=== PATIENT | male | born 1940 | race Caucasian/White ===

== ENCOUNTER → 2016-08-13 | Outpatient (CLI) | payer OTHER, MEDICARE ==
[~2016-08-13] MED LIST: ALD2525 PO; ASPI81TA28 PO; CLOP1TAB15 PO
[2016-08-13 10:22] LABS: ALT/SGPT 18 U/L (12-78); AST/SGOT 13 U/L (15-37); BLOOD UREA NITROGEN 23 mg/dl (7-18); BUN/CREATININE RATIO 16.5 (10-20); CALCIUM 8.8 mg/dl (8.5-10.1); CARBON DIOXIDE 27 mmol/L (21-32); CHLORIDE 102 mmol/L (98-107); GLUCOSE 112 mg/dl (70-99); POTASSIUM 4.2 mmol/L (3.5-5.1); SODIUM 138 mmol/L (136-145)
[2016-08-13 10:25] LABS: ALB/GLOB RATIO 0.9 (0.9-2); ALKALINE PHOSPHATASE 60 U/L (45-117)
== END | disposition home or self-care (01) ==
LOC: C.LAB1850 09:13
PROVIDERS: ATTEND Internal Medicine Cardiovascular Disease
DX: E78.5 Hyperlipidemia, unspecified (principal)

== ENCOUNTER → 2017-01-04 | Outpatient (CLI) | payer OTHER, MEDICARE ==
[~2017-01-04] MED LIST changes: +CHOL1000 PO; +LEVO-18 PO; +PRED20TA2 PO; +SPIR50TA PO; +VNTHFA/IN INH
[2017-01-04 12:49] LABS: BASO % 0.7 %; BASO ABS # 0.06 K/uL (0-0.2); COMPLETE YES; EOS % 3.3 %; HEMATOCRIT 49.1 % (42-52); IG% 0.1 %; LYMPH % 28.7 %; LYMPH ABS # 2.62 K/uL (1.2-3.4); MEAN CELL VOLUME 94.2 fL (80-100); MEAN CORPUSCULAR HEMOGLOBIN 32.2 pg (25-34); MEAN CORPUSCULAR HGB CONC 34.2 g/dl (32-36); MEAN PLATELET VOLUME 10.4 fL (7.4-10.4); MONO % 9.3 %; NEUT % 57.9 %; PLATELET COUNT 235 K/uL (130-400); RED BLOOD COUNT 5.21 M/uL (4.7-6.1); WHITE BLOOD COUNT 9.14 K/uL (4.8-10.8)
[2017-01-04 13:06] LABS: ALKALINE PHOSPHATASE 66 U/L (45-117); ALT/SGPT 21 U/L (12-78); AST/SGOT 15 U/L (15-37); BLOOD UREA NITROGEN 28 mg/dl (7-18); BUN/CREATININE RATIO 18.4 (10-20); CALCIUM 8.5 mg/dl (8.5-10.1); CARBON DIOXIDE 25 mmol/L (21-32); CHLORIDE 105 mmol/L (98-107); GLUCOSE 96 mg/dl (70-99); POTASSIUM 4.4 mmol/L (3.5-5.1); SODIUM 140 mmol/L (136-145)
[2017-01-04 13:17] LABS: ALB/GLOB RATIO 0.9 (0.9-2)
--- NOTE | 2017-01-08 09:53 | CODING QUERY MEDICAL NECESSITY ---
SUPPORTING DIAGNOSIS NEEDED Dr. Cummings, A supporting diagnosis is required for the test/procedure performed on this patient in order for us to be reimbursed by the patient's insurance. Please provide a supporting diagnosis for the following test/procedure listed below next to the test name along with your signature. *If there is no additional diagnosis for this patient that would support the following test/procedure please document that below next to the test/procedure. Test(s)/Procedure(s) that require a supporting diagnosis: * ([id number]) VITAMIN D ASSAY DIAGNOSIS: DATE OF SERVICE: 01/04/17 Provider Signature: Date: Thank you Jeremy Brewster [facility] Information Management Once completed, please kindly fax back to [phone] For questions please call [phone]
== END | disposition home or self-care (01) ==
LOC: C.LAB1850 10:12
PROVIDERS: ATTEND Internal Medicine Cardiovascular Disease
DX: R60.9 Edema, unspecified (principal)

== ENCOUNTER → 2017-04-13 | Outpatient (CLI) | payer OTHER, MEDICARE | END | disposition home or self-care (01) | LOC: C.LABPBG 13:08 | PROVIDERS: ATTEND Neuromusculoskeletal Medicine & OMM | DX: E55.9 Vitamin D deficiency, unspecified (principal) ==

== ENCOUNTER 2017-05-08 07:57 | Emergency (ER) | payer OTHER, MEDICARE ==
[~2017-05-08] VITALS: Ht 177.8 cm; Wt 114.1 kg
[~2017-05-08 07:57] MED LIST changes: -CHOL1000 PO; -LEVO-18 PO; -PRED20TA2 PO; -SPIR50TA PO; -VNTHFA/IN INH
[2017-05-08 08:01] VITALS: TEMP 36.6; Ht 177.8 cm; Wt 114.1 kg
[2017-05-08 08:10] VITALS: O2SAT 96
[2017-05-08] MEDS ORDERED: ALBUT/IPRATROP 3MG/0.5MG NEB 3 ML VIAL INH STA (08:22)
[2017-05-08] MEDS ORDERED: SPIR50TA PO (08:51)
[2017-05-08 08:54] LABS: BASO % 0.4 %; BASO ABS # 0.05 K/uL (0-0.2); COMPLETE YES; EOS % 1.7 %; IG% 0.2 %; LYMPH % 9.9 %; LYMPH ABS # 1.18 K/uL (1.2-3.4); MEAN CELL VOLUME 94.6 fL (80-100); MEAN CORPUSCULAR HEMOGLOBIN 32.7 pg (25-34); MEAN CORPUSCULAR HGB CONC 34.5 g/dl (32-36); MEAN PLATELET VOLUME 10.5 fL (7.4-10.4); MONO % 10.7 %; NEUT % 77.1 %; PLATELET COUNT 205 K/uL (130-400); RED BLOOD COUNT 4.65 M/uL (4.7-6.1); WHITE BLOOD COUNT 11.86 K/uL (4.8-10.8)
[2017-05-08] MEDS ORDERED: CHOL1000 PO (09:10)
[2017-05-08 09:11] LABS: BUN/CREATININE RATIO 16.2 (10-20); CALCIUM 8.8 mg/dl (8.5-10.1); CREATININE 1.4 mg/dl (0.60-1.40); POTASSIUM 3.9 mmol/L (3.5-5.1)
--- NOTE | 2017-05-08 09:12 | DIAGNOSTIC IMAGING REPORT ---
TWO VIEW CHEST CLINICAL HISTORY: Wheezing. Dyspnea.. FINDINGS: PA and lateral chest radiographs are compared to study dated 08/07/2015 and correlated with chest CT dated 10/09/2015. The heart is enlarged and there is atherosclerotic calcification of the thoracic aorta. The pulmonary vasculature is noncongested. Mild emphysema and chronic interstitial thickening are similar to previous. Calcified pleural plaques in the left upper lung are unchanged. There is chronic elevation of the right hemidiaphragm. Patchy airspace opacities are seen at a posterior lung base on the lateral projection only. There is no pleural effusion or pneumothorax. The skeletal structures are osteopenic. The bony thorax appears intact. IMPRESSION: 1. Cardiomegaly, emphysema, and calcified pleural plaques are similar to previous. There is no radiographic evidence of congestive failure. 2. Patchy airspace opacities are suggested at a posterior lung base on the lateral view. This could not be localized on the frontal view, and this could represent atelectasis versus pneumonia/aspiration pneumonitis. Clinical correlation will be required. Electronically signed by: Dionte Altman M.D. 05/08/2017 9:11 AM Dictated Date/Time: 05/08/2017 9:06 AM
[2017-05-08 09:14] LABS: ALB/GLOB RATIO 0.8 (0.9-2)
[2017-05-08 09:23] LABS: PARTIAL THROMBOPLASTIN RATIO 1.2; PROTHROMBIN TIME (PATIENT) 11.2 SECONDS (9.0-12.0)
[2017-05-08 09:30] LABS: CKMB/CK RATIO 1.1 (0-3.0)
[2017-05-08] MEDS ORDERED: METHYLPREDNISOLONE 125 MG VIAL IV STA (10:47)
[2017-05-08] MEDS ORDERED: LEVO-18 PO (10:51)
[2017-05-08] MEDS ORDERED: PRED20TA2 PO (10:51)
[2017-05-08] MEDS ORDERED: VNTHFA/IN INH (10:52)
[2017-05-08 10:58] VITALS: BP 127/65; PULSE 56; O2SAT 97
--- NOTE | 2017-05-08 15:00 | EMERGENCY ROOM VISIT NOTE ---
ED Visit Note First contact with patient: 08:04 I have personally seen and evaluated the patient with the PA. I agree with the diagnosis and management decisions and have been personally involved in the case. Patient will be placed on Levaquin 750 mg daily for the pulmonary infiltrate on chest x-ray. His given an albuterol inhaler and low-dose prednisone. Please see Xavier Reyna PA-C's notes for further details of the history, physical and visit.
--- NOTE | 2017-05-19 09:57 | EMERGENCY ROOM VISIT NOTE ---
History First contact with patient: 08:04 Chief Complaint: RESPIRATORY PROBLEMS Stated Complaint: DIFFICULTY BREATHING Nursing Triage Summary: shortness of breath. productive cough since . went to the dr and was given meds they dont seem to be helping. History of Present Illness The patient is a 76 year old male who presents to the Emergency Room with complaints of shortness of breath, coughing, and chest congestion that developed evening. He was seen by his PCP on complaining of cold type symptoms. He was given an inhaler. He states it has not been helping. Symptoms became worse on evening and have persisted. He is unsure of any fevers. Occasional chills and sweats. No nausea, vomiting, or diarrhea. No known ill contacts. Pain is 5/10. He denies any sneezing or ear pain. No sore throat. No other treatment. He does get some exertional dyspnea. Review of Systems REVIEW OF SYSTEM: HEENT: No dizziness, visual problems, hearing loss, or tinnitus. There is no difficulty swallowing and no oral lesions are present. LYMPH: No adenopathy. PULMONARY: Positive cough, shortness of breath, and sputum production. No hemoptysis. CARDIOVASCULAR: No chest pain, palpitations, or peripheral edema. GASTROINTESTINAL: No diarrhea, constipation, nausea, vomiting, or abdominal pain. GENITOURINARY: No dysuria, frequency, urgency or nocturia. NEUROLOGIC: No weakness, muscle tenderness, epilepsy or history of neurological problems. MUSCULOSKELETAL: No history of joint tenderness/swelling. Positive history of arthritis and arthralgias. SKIN: No rashes or lesions. PSYCHIATRIC: No history of depression or mental illness. ENDOCRINE: No history of thyroid disorders, or abnormal hair growth. Past Medical/Surgical History Medical Problems: (1) Coronary Atherosclerosis Of [place] Coronary Vessel (2) DM (diabetes mellitus) (3) Hyperlipidemia Nec/Nos (4) Hypertension Nos Family History FH: gallbladder disease Heart disease Lung disease Social History Smoking Status: Never Smoker Smokeless Tobacco Use: No Alcohol Use: none Drug Use: none Marital Status: single Housing Status: lives alone Occupation Status: retired Current/Historical Medications Scheduled Aspirin (Aspirin Ec), 81 MG PO DAILY Cholecalciferol (Vitamin D3), 1 TAB PO DAILY Clopidogrel (Plavix), 75 MG PO DAILY Hctz/Spironolactone 25MG/25MG (Aldactazide 25MG/25MG), 1 TAB PO BID Prednisone (Prednisone Tab), 20 MG PO DAILY Allergies Coded Allergies: Warfarin (Verified Allergy, Unknown, hives, rash, 05/08/17) Statins (Unverified Adverse Reaction, Severe, muscle weakness,pain, cramps , 05/08/17) 09/10/11: pt not willing to ever take again. Physical Exam Vital Signs Date Time Temp Pulse Resp B/P (MAP) Pulse Ox O2 Delivery O2 Flow Rate FiO2 05/08/17 10:58 56 18 127/65 97 Room Air 05/08/17 10:06 76 18 127/65 95 Room Air 05/08/17 08:13 74 05/08/17 08:11 81 22 129/73 96 Room Air 05/08/17 08:10 96 Room Air 05/08/17 08:08 96 Room Air 05/08/17 08:01 36.6 87 20 114/55 96 Room Air Pain Rating (0-10): 5 Physical Exam Gen.: Well-developed, well-nourished, elderly white male, in no acute distress. Obvious discomfort. Laying on a bed. Alert and oriented. Skin:Warm and dry with good turgor. No rashes or lesions. No ecchymosis or erythema. The patient is not diaphoretic. No abrasions. HEENT: Normocephalic atraumatic. Eyes PERRLA, EOMI. No conjunctiva or scleral injection. Ears TMs intact bilaterally with good light reflexes. No erythema or bulging. No hemotympanum. Canals are patent. Nares patent bilaterally without turbinate enlargement. No significant drainage. No epistaxis. Oropharynx without erythema or exudate. Uvula midline, oral mucosa moist. No lesions present. Lymphatics are palpated without anterior or posterior chain enlargement or tenderness. Heart: Heart RRR. Frequent PVCs. No MGR. Peripheral pulses are 2+. Lungs: Lungs have bibasilar rhonchi on auscultation.. No crackles or wheezing. Good air movement. The patient is able to take a deep breath. Abdomen: Abdomen was inspected, auscultated, and palpated. Obese. Bowel sounds present x 4. Soft, nontender to palpation. No rebound. No pain over McBurney's point. Musculoskeletal: Gross motor function of the upper and lower extremities is intact and unremarkable. Neurologic: Gross sensation is intact across the upper and lower extremities by soft touch. Medical Decision & Procedures ER Provider Diagnostic Interpretation: EKG obtained today shows a marked sinus bradycardia with frequent PVCs. Rate of 70. This was compared against previous EKG from March 2012 at which time he had a sinus rhythm with occasional PVCs and PACs. There was an incomplete left bundle branch block. Rate of 87. Chest x-ray obtained today was read by radiology as: Cardiomegaly, emphysema, and calcified pleural plaques are similar to previous. There is no radiographic evidence of congestive failure. 2. Patchy airspace opacities are suggested at a posterior lung base on the lateral view. This could not be localized on the frontal view, and this could represent atelectasis versus pneumonia/aspiration pneumonitis. Clinical correlation will be required. Laboratory Results 05/08/17 08:31 Red Blood Count 4.65, Mean Corpuscular Volume 94.6, Mean Corpuscular Hemoglobin 32.7, Mean Corpuscular Hemoglobin Concent 34.5, Mean Platelet Volume 10.5, Neutrophils (%) (Auto) 77.1, Lymphocytes (%) (Auto) 9.9, Monocytes (%) (Auto) 10.7, Eosinophils (%) (Auto) 1.7, Basophils (%) (Auto) 0.4, Neutrophils # (Auto ) 9.14, Lymphocytes # (Auto) 1.18, Monocytes # (Auto) 1.27, Eosinophils # (Auto ) 0.20, Basophils # (Auto) 0.05 05/08/17 08:31 Test 05/08/17 08:31 05/08/17 08:34 White Blood Count 11.86 K/uL (4.8-10.8) Red Blood Count 4.65 M/uL (4.7-6.1) Hemoglobin 15.2 g/dL (14.0-18.0) Hematocrit 44.0 % (42-52) Mean Corpuscular Volume 94.6 fL (80-100) Mean Corpuscular Hemoglobin 32.7 pg (25-34) Mean Corpuscular Hemoglobin Concent 34.5 g/dl (32-36) Platelet Count 205 K/uL (130-400) Mean Platelet Volume 10.5 fL (7.4-10.4) Neutrophils (%) (Auto) 77.1 % Lymphocytes (%) (Auto) 9.9 % Monocytes (%) (Auto) 10.7 % Eosinophils (%) (Auto) 1.7 % Basophils (%) (Auto) 0.4 % Neutrophils # (Auto) 9.14 K/uL (1.4-6.5) Lymphocytes # (Auto) 1.18 K/uL (1.2-3.4) Monocytes # (Auto) 1.27 K/uL (0.11-0.59) Eosinophils # (Auto) 0.20 K/uL (0-0.5) Basophils # (Auto) 0.05 K/uL (0-0.2) RDW Standard Deviation 47.4 fL (36.4-46.3) RDW Coefficient of Variation 13.7 % (11.5-14.5) Immature Granulocyte % (Auto) 0.2 % Immature Granulocyte # (Auto) 0.02 K/uL (0.00-0.02) Anion Gap 8.0 mmol/L (3-11) Est Creatinine Clear Calc Drug Dose 55.0 ml/min Estimated GFR () 55.4 Estimated GFR (Non- 47.8 BUN/Creatinine Ratio 16.2 (10-20) Calcium Level 8.8 mg/dl (8.5-10.1) Total Bilirubin 1.6 mg/dl (0.2-1) Aspartate Amino Transf (AST/SGOT) 16 U/L (15-37) Alanine Aminotransferase (ALT/SGPT) 14 U/L (12-78) Alkaline Phosphatase 58 U/L (45-117) Total Protein 7.4 gm/dl (6.4-8.2) Albumin 3.3 gm/dl (3.4-5.0) Globulin 4.1 gm/dl (2.5-4.0) Albumin/Globulin Ratio 0.8 (0.9-2) Prothrombin Time 11.2 SECONDS (9.0-12.0) Prothromb Time International Ratio 1.0 (0.9-1.1) Activated Partial Thromboplast Time 31.2 SECONDS (21.0-31.0) Partial Thromboplastin Ratio 1.2 Total Creatine Kinase 96 U/L (39-308) Creatine Kinase MB 1.1 ng/ml (0.5-3.6) Creatine Kinase MB Ratio 1.1 (0-3.0) Troponin I 0.022 ng/ml (0-0.045) CBC, chem panel, PTT/INR, CK/CK-MB, and troponin were obtained. Cardiac enzymes are unremarkable. Mild elevation in WBCs. INR is normal. Medications Administered Medications (Trade) Dose Ordered Sig/Felix Route Start Time Stop Time Status Last Admin Dose Admin Albuterol/ Ipratropium (Duoneb) 3 ml NOW STAT INH 05/08/17 08:22 05/08/17 08:23 DC 05/08/17 08:25 3 ML Methylprednisolone Sodium Succinate (Solu-Medrol IV) 125 mg NOW STAT IV 05/08/17 10:47 05/08/17 10:48 DC 05/08/17 10:56 125 MG DuoNeb treatment, Solu-Medrol 125 mg IV ED Course Patient was educated regarding today's findings. Conservative care measures were discussed. IV was established. Labs were obtained. Chest x-ray and EKG were obtained. He was given a DuoNeb treatment which did improve his respiratory symptoms. Lung sounds improved. He was also given Solu-Medrol 125 mg IV. Chest x-ray suggests a posterior pneumonia. He will be treated as such. Prescription was provided for Levaquin 750 mg daily. He was also given a prescription for prednisone 20 mg daily to be used for 5 days. Continue with a OTC cough syrup. Continue with his inhaler every 4 hours as needed. Tylenol every 6 hours as needed for fever control. Follow-up with his PCP this week for reexamination. Return to the ED for any acute changes. Patient remained stable while in the ED. He was seen in conjunction with Dr. Wahl, who also evaluated the patient and concurred with today's diagnosis and treatment plan. Medical Decision Possibility of Cardiac arrhythmia, pneumonia, lung mass, bronchitis, common cold , and upper respiratory infection were considered among others [place] Drug Monitoring Program Search Results: no issues identified Impression Primary Impression: Pneumonia Departure Information Dispostion Home / Self-Care Prescriptions Prednisone (Prednisone Tab) 20 Mg Tab 20 MG PO DAILY, #5 TAB Prov: Talha Reyna,P.A. 05/08/17 Forms ALBUTEROL INHALER INSTRUCTIONS, WORK / SCHOOL INSTRUCTIONS, HOME CARE DOCUMENTATION FORM, IMPORTANT VISIT INFORMATION Patient Instructions My [facility] Additional Instructions levaquin 750mg daily x 10 days prednisone 20mg daily x 5 days follow up with your PCP this week for re-examination Albuterol inhaler 2 puffs every 4 hours as needed for shortness of breath Return to the ED for any acute changes or worsening symptoms Problem Qualifiers Primary Impression: Pneumonia Pneumonia type: due to unspecified organism Laterality: unspecified laterality Lung location: unspecified part of lung Qualified Codes: J18.9 - Pneumonia, unspecified organism
== END 2017-05-08 11:05 | disposition home or self-care (01) ==
LOC: C.EDB 07:58 → C.EDA 11:05
DX: J18.9 Pneumonia, unspecified organism (principal); I25.10 Atherosclerotic heart disease of native coronary artery without angina pectoris; E11.9 Type 2 diabetes mellitus without complications; E78.5 Hyperlipidemia, unspecified; I10 Essential (primary) hypertension; Z79.82 Long term (current) use of aspirin; Z79.899 Other long term (current) drug therapy; Z79.01 Long term (current) use of anticoagulants

== ENCOUNTER 2017-10-07 08:56 | Inpatient (IN) | payer OTHER, MEDICARE ==
[2017-09-09 11:26] VITALS: BMI 36.0
--- NOTE | 2017-09-09 12:08 | PAT Medication Instructions ---
Service Date Sep 09, 2017. Current Home Medication List Aspirin (Aspirin Ec), 81 MG PO QAM Cholecalciferol (Vitamin D3), 1 TAB PO QAM Clopidogrel (Plavix), 75 MG PO QAM Hctz/Spironolactone 25MG/25MG (Aldactazide 25MG/25MG), 1 TAB PO BID Medication Instructions For Your Scheduled Surgery - Check with surgeon and sugar drier for instructions (Please check with sugar drier to see if okay to hold 7 days prior to surgery in order for spinal anesthesia) Clopidogrel (Plavix), 75 MG PO QAM - Hold the following medications the morning of surgery: Hctz/Spironolactone 25MG/25MG (Aldactazide 25MG/25MG), 1 TAB PO BID Cholecalciferol (Vitamin D3), 1 TAB PO QAM - Take the following medications the morning of surgery with a sip of water: Aspirin (Aspirin Ec), 81 MG PO QAM - Take the following medications as scheduled the night before surgery: Hctz/Spironolactone 25MG/25MG (Aldactazide 25MG/25MG), 1 TAB PO BID If you have any questions please call us at [phone] or [phone] or [phone]
--- NOTE | 2017-09-09 12:43 | DIAGNOSTIC IMAGING REPORT ---
CHEST 2 VIEWS ROUTINE HISTORY: 76 years-old Male pat preoperative exam. No acute chest complaints COMPARISON: Chest radiographs 05/08/2017, chest CT 10/09/2015 TECHNIQUE: PA and lateral views of the chest FINDINGS: Cardiac silhouette is again mildly enlarged. Atherosclerosis of the aorta. No pneumothorax, pleural effusion, focal airspace consolidation or overt pulmonary edema. Lungs are mildly hyperinflated with eventration of the right hemidiaphragm. Calcified pleural plaques of the left hemithorax redemonstrated. Multilevel endplate spurring throughout the spine. Degenerative changes are also noted within the bilateral shoulders. IMPRESSION: 1. Mild cardiomegaly without acute process. 2. Calcified pleural plaques of the left hemithorax. 3. Eventration of the right hemidiaphragm. The above report was generated using voice recognition software. It may contain grammatical, syntax or spelling errors. Electronically signed by: Mao Lopez M.D. 09/09/2017 12:41 PM Dictated Date/Time: 09/09/2017 12:40 PM
[2017-09-09 12:51] LABS: BASO % 0.6 %; BASO ABS # 0.05 K/uL (0-0.2); EOS % 3.3 %; EOS ABS # 0.29 K/uL (0-0.5); HEMATOCRIT 48.1 % (42-52); HEMOGLOBIN 16.8 g/dL (14.0-18.0); IG# 0.02 K/uL (0.00-0.02); LYMPH % 24.1 %; MEAN CELL VOLUME 95.2 fL (80-100); MEAN CORPUSCULAR HEMOGLOBIN 33.3 pg (25-34); MEAN CORPUSCULAR HGB CONC 34.9 g/dl (32-36); MEAN PLATELET VOLUME 10.6 fL (7.4-10.4); MONO % 10.4 %; MONO ABS # 0.91 K/uL (0.11-0.59); NEUT % 61.4 %; NEUT ABS # 5.36 K/uL (1.4-6.5); PLATELET COUNT 234 K/uL (130-400); RED CELL DISTRIBUTION WIDTH CV 13.6 % (11.5-14.5); RED CELL DISTRIBUTION WIDTH SD 46.8 fL (36.4-46.3); WHITE BLOOD COUNT 8.73 K/uL (4.8-10.8)
[2017-09-09 12:59] LABS: PTT PATIENT 24.8 SECONDS (21.0-31.0)
[2017-09-09 13:52] LABS: ALBUMIN 3.4 gm/dl (3.4-5.0); CALCIUM 9.3 mg/dl (8.5-10.1); CREATININE 1.31 mg/dl (0.60-1.40); POTASSIUM 4.2 mmol/L (3.5-5.1)
--- NOTE | 2017-09-16 13:42 | HISTORY & PHYSICAL EXAMINATION ---
DATE OF ADMISSION: 10/07/2017 CHIEF COMPLAINT: Right knee pain. HISTORY OF PRESENT ILLNESS: Mr. Multani is a 76-year-old male with a 5-year history of right knee pain. The patient rates his pain at 10/10. He has pain with his daily activities. He has limited standing and walking tolerance. Pain is worse with weightbearing. The patient uses a cane to ambulate. He has also a walker. He has had injections and bracing without relief. He has failed conservative treatment and is scheduled for a right knee replacement. PAST MEDICAL HISTORY: Heart disease with 5 stents, history of PE in 2010, hypertension, hypercholesterolemia, and peripheral vascular disease. He denies diabetes or DVT. PAST SURGICAL HISTORY: Bilateral total hip replacements, cardiac stent placement, and bilateral lower extremity stents. SOCIAL HISTORY: The patient denies alcohol use. He smokes a pipe, but is rare. He lives in a single story apartment. He lives alone and is retired. FAMILY HISTORY: Negative for DVT. MEDICATIONS: Include Plavix 75 mg daily, aspirin 81 mg daily, spironolactone 25 mg, hydrochlorothiazide 25 mg, and vitamin D3 of 2000 units. ALLERGIES: CHOLESTEROL MEDICATION/STATINS CAUSE MUSCLE PAIN. REVIEW OF SYSTEMS: See HPI. Ten other systems reviewed, all negative. PHYSICAL EXAMINATION: VITAL SIGNS: Height 5 feet 9 inches, weight 250 pounds, and BMI 37. GENERAL: This is a well-developed and well-nourished male who is alert and oriented x3. Mood and affect are appropriate. HEENT: Normocephalic and atraumatic. Mucous membranes are moist and intact. NECK: Supple without lymphadenopathy. HEART: Regular rate and rhythm without murmurs, rubs or gallops. LUNGS: Clear to auscultation without wheezes or rhonchi. ABDOMEN: Soft and nontender. Bowel sounds are equal and active. EXTREMITIES: No ecchymosis, redness or warmth. He has varus deformity. Range of motion is from 10-110 degrees with no laxity. He is neurovascularly intact. He has a palpable Leger cyst. He has moderate effusion. Strength is +5/5. He also has moderate venous stasis changes noted over bilateral lower extremities. X-RAY EXAMINATION: AP and lateral views show joint space narrowing and osteophyte formation. IMPRESSION: 1. Degenerative joint disease, right knee. 2. Peripheral vascular disease. 3. History of pulmonary embolism in 2010. PLAN: The patient will be admitted for a right total knee arthroplasty. We will plan on Plavix and aspirin for DVT prophylaxis. The patient has a history of lower extremity stent placement. Tourniquet use is likely contraindicated in this patient. The patient will need close monitoring on postoperative days.
[2017-10-07] VITALS (9 sets, daily range): BP systolic 107–143; BP diastolic 60–88; PULSE 51–95; TEMP 36.2–36.8; O2SAT 94–98; Ht 177.8 cm; Wt 113.6 kg
[~2017-10-07] VITALS: Ht 177.8 cm; Wt 113.6 kg
[~2017-10-07 08:56] MED LIST changes: +ACETAMINOPHEN 500 MG TAB PO SCH; -ALD2525 PO; +ATROPINE SULFATE 0.1 MG/ML 5ML SYR IV PRN; +BUPIVACAINE 0.25% 30 ML VIAL ONE; +BUPIVACAINE 0.5 % 5 MG/1 ML PF 10ML VIAL ONE; +CEFAZOLIN 2000MG IV PUSH 15 ML IV SCH; +CHOL1000 PO; +CeleBREX 200 MG CAP PO SCH; +DEXAMETHASONE 4 MG TAB PO SCH; +EpHEDrine SULFATE INJ 50 MG/ML AMP IV PRN; +FAMOTIDINE 20 MG TAB PO SCH; +FENTANYL CITRATE INJ 50 MCG/1 ML 2 ML VIAL IV PRN; +GABAPENTIN 300 MG CAP PO SCH; +HYDROmorphone INJ 1 MG/ML SYR IV PRN; +LACTATED RINGER'S 1000ML 1,000 ML IV SCH; +LACTATED RINGER'S 1000ML 500 ML IV SCH; +METOCLOPRAMIDE HCL 10 MG TAB PO SCH; +ONDANSETRON INJ 2 MG/ML 2 ML VIAL IV PRN; +PHENYLEPHRINE 100MCG/ML 5ML SYR IV PRN; +ROPIVACAINE 0.5% 5 MG/ML 30 ML VIAL ONE; +ROPIVACAINE 5MG/ML 30 ML 150 MG, BUPIVACAINE 0.5% MPF INJ 30 ML, EpINEphrine HCL INJ 0.... INFIL SCH; +SPIR50TA PO
--- NOTE | 2017-10-07 09:28 | History & Physical Bridge Note ---
H&P Re-Evaluation Bridge Note: I have examined the patient, reviewed the History & Physical and in the interval since the performance of the History & Physical I have noted the following changes of clinical significance: No changes noted
[2017-10-07] MEDS ORDERED: BACITRACIN 50000 UNIT VIAL ONE (11:02)
[2017-10-07] MEDS ORDERED: ORTHO JOINT ANESTHETIC ONE (11:02)
[2017-10-07] MEDS ORDERED: POVIDONE-IODINE OP SOLN 30 ML BTL ONE (11:02)
[2017-10-07] MEDS ORDERED: LIDOCAINE HCL 2% 2 ML VIAL (20MG/ML) ONE (11:04)
[2017-10-07] MEDS ORDERED: MIDAZOLAM HCL 1 MG/ML 2ML VIAL ONE (11:04)
[2017-10-07] MEDS ORDERED: PROPOFOL IV EMULSION 10 MG/ML 20 ML VIAL IV ONE (11:04)
[2017-10-07] MEDS ORDERED: FENTANYL CITRATE INJ 50 MCG/1 ML 2 ML VIAL ONE (11:04)
[2017-10-07] MEDS ORDERED: EpHEDrine SULFATE 50MG/5ML SYR ONE (12:16)
--- NOTE | 2017-10-07 12:39 | [facility] Post Operative Brief Note ---
Immediate Operative Summary Operative Date Oct 07, 2017. Pre-Operative Diagnosis Right Knee Degenerative Joint Disease Post-Operative Diagnosis Same as preop Procedure(s) Performed Right Total Knee Arthroplasty Surgeon Dr. Gorman [place] Surgeon(s) Qasim Santa PA-C Estimated Blood Loss 250 ml Findings Consistent with Post-Op Diagnosis Specimens A. Right Knee Bone and Tissue Anesthesia Type MAC Spinal Regional Complication(s) none Disposition Accompanied Pt To Recover: no Disposition: Recovery Room / PACU
--- NOTE | 2017-10-07 12:58 | OPERATIVE REPORT ---
DATE OF OPERATION: 10/07/2017 PREOPERATIVE DIAGNOSIS: Osteoarthritis right knee. POSTOPERATIVE DIAGNOSIS: Osteoarthritis right knee. PROCEDURE: Right total knee arthroplasty. SURGEON: Mode Gorman MD SHIP CARPENTER: Qasim Santa PA-C ANESTHESIA: Spinal. COMPLICATIONS: None. OPERATION AND FINDINGS: Following induction of spinal anesthesia, the patient's right leg was prepped and draped in the usual sterile manner. Limb was exsanguinated with an Esmarch bandage and no tourniquet was utilized during this case because of the presence of femoral artery stent. A longitudinal incision was made anteriorly. Subcutaneous tissue was sharply dissected. Electrocautery was used for hemostasis. Prepatellar bursa was incised and median parapatellar incision was performed. Patella was everted and the knee was flexed. Fat pad was removed to aid in visualization and the anterior and posterior cruciate ligaments were removed. The medial face of the tibia was cleared of soft tissue first with a Bovie and a Jacques elevator. This tissue was retracted posteriorly using a blunt Hohmann. A Camp retractor was used to expose the synovium above on the anterior aspect of the femur and this was removed down to bone. The PSI guide was placed on the distal femur and two pins were placed anteriorly and kept in position and two additional pins were placed distally and removed. The distal femoral cutting block was placed in position and the distal femoral cut was used in the +0 setting. Next, the cutting block was removed and the size 6 block was placed in the distal end of the femur. Care was taken to ensure appropriate external rotation and feeler gauge was used to ensure no notching would occur. The femoral block was centered on the distal femur and in the medial and lateral direction and was fixed using two bone screws. The gold pins were then removed. The oscillating saw was used to create the bone cuts and the distal femoral cutting block was removed and the reciprocating saw was used to further trim the femoral cuts as well as a deep in the area for the trochlear groove. Next, posterior condyle remnants were removed. Following this, a meniscal clamp and knife were utilized to remove the anterior portion of both medial and lateral meniscus. The proximal tibia PSI guide was placed into position and the proximal tibial cutting guide was screwed into position. The extra medullary alignment guide was utilized to ensure appropriate alignment. The proximal tibia was cut and the proximal tibial cutting block was removed and this bone fragment was removed. The appropriate guide was used to perform the notch cut on the distal femur and a lamina candy spreader helper and a cochlear knife were utilized to finish both medial and lateral meniscectomies to remove any remnants of the posterior or anterior cruciate ligaments. Following this, the distal femoral component was impacted into position and blunt Patti was used to sublux the tibia anteriorly. The proximal tibia was sized and a size 6 tibial tray was chosen as the size to be used. This was put into position and appropriate external rotation and a double check with extramedullary alignment guide was performed. The canal for the tibial stem was prepared first with a 17 mm drill and then the punch and a mallet and the trial tibial poly was placed. A size 9 was chosen the size to be used. It was brought to extension and the patella was prepared with the patellar reamer. A size 39 component was chosen the size to be used. The trial component was placed and knee was taken through a full range of motion and there was found to be no lateral subluxation of the tibia. No lateral release was required. The trials were all removed. The final components were obtained and assembled. Cement was mixed. The knee was thoroughly irrigated and the ortho mix was injected about the knee joint. The final components were cemented into position. After thoroughly suctioning and drying the bone ends, all excess cement was removed. The knee was held in extension while the cement hardened. The wound was irrigated and closed over a Hemovac drain. #1 Vicryl was used to close the extensor mechanism. Subcutaneous tissues closed using 0 Dexon. Skin was closed with addison. Sterile dressing of Adaptic, 4 x 4's, sterile Webril, and Marshall was applied. The patient tolerated the procedure well. Recovery room stable. Due to the complex nature of the procedure, the entire surgery was performed with the operational assistance of Qasim Santa PA-C. The assistant foreman, under direct supervision, was involved in the actual performance of all aspects of the surgical procedure including hemostasis, tissue retraction and incision, instrument management, patient positioning, and wound closure. I attest to the content of the Intraoperative Record and any orders documented therein. Any exception s are noted below.
[2017-10-07] MEDS ORDERED: MAGNESIUM HYDROXIDE SUSP 30 ML UDC PO PRN (13:30)
[2017-10-07] MEDS ORDERED: ZOLPIDEM TARTRATE 5 MG TAB PO PRN (13:30)
[2017-10-07] MEDS ORDERED: CEFAZOLIN IV 2,000 MG in DEXTROSE 5% 50ML 50 ML IV SCH (13:30)
[2017-10-07] MEDS ORDERED: ALUMINUM/MAGNESIUM/SIMETH (MAALOX MAX) 30 ML UDC PO PRN (13:30)
[2017-10-07] MEDS ORDERED: MoRPHine SULFATE 2 MG/ML CARP IV PRN (13:30)
[2017-10-07] MEDS ORDERED: TAMSULOSIN HCL 0.4 MG CAP PO PRN (13:30)
[2017-10-07] MEDS ORDERED: ONDANSETRON INJ 2 MG/ML 2 ML VIAL IV PRN (13:30)
[2017-10-07] MEDS ORDERED: OXYCODONE HCL IR 5 MG TAB (IMMEDIATE RELEASE) PO PRN (13:30)
[2017-10-07] MEDS ORDERED: METOCLOPRAMIDE HCL INJ 5 MG/ML 2 ML VIAL IV PRN (13:30)
--- NOTE | 2017-10-07 13:50 | DIAGNOSTIC IMAGING REPORT ---
R KNEE 1 OR 2 VIEWS ROUTINE CLINICAL HISTORY: 76 years-old Male presenting with AP/LATERAL IN PACU RIGHT KNEE. TECHNIQUE: Frontal and lateral views of the right knee were obtained. COMPARISON: 03/16/2016. FINDINGS: Post surgical changes of total knee arthroplasty with patellar resurfacing. Expected intra-articular and soft tissue emphysema. A surgical drain is in place. No acute fracture. No malalignment. Atherosclerosis noted. IMPRESSION: Expected postsurgical appearance status post total right knee arthroplasty with patellar resurfacing. No hardware complication. Electronically signed by: Jose Ricks M.D. 10/07/2017 1:49 PM Dictated Date/Time: 10/07/2017 1:48 PM
--- NOTE | 2017-10-07 14:20 | Anesthesiology Progress Note ---
Anesthesia Post Op Note Date & Time Oct 07, 2017 at 14:20 Vital Signs Pain Intensity: 0 Vital Signs Past 12 Hours Date Time Temp Pulse Resp B/P (MAP) Pulse Ox O2 Delivery O2 Flow Rate FiO2 10/07/17 14:05 70 17 95/58 93 Nasal Cannula 2 10/07/17 13:55 71 18 95/59 94 Nasal Cannula 2 10/07/17 13:45 71 18 89/58 93 Nasal Cannula 2 10/07/17 13:35 70 21 95/63 97 Oxymask 10 10/07/17 13:25 72 19 88/63 95 Oxymask 10 10/07/17 13:16 36.8 71 16 99/70 94 Oxymask 10 10/07/17 09:40 36.4 63 20 143/88 94 Room Air Notes Mental Status: alert / awake / arousable, participated in evaluation Pt Amnestic to Procedure: Yes Nausea / Vomiting: adequately controlled Pain: adequately controlled Airway Patency, RR, SpO2: stable & adequate BP & HR: stable & adequate Hydration State: stable & adequate Neuraxial Anesthesia: was administered, sensory block is resolving Anesthetic Complications: no major complications apparent
[2017-10-07] MEDS ORDERED: MoRPHine SULFATE 10 MG/ML CARP/VIAL IV PRN (15:15)
[2017-10-07] MEDS ORDERED: MoRPHine SULFATE 4 MG/ML 1 ML CARP\\VIAL IV PRN (15:15)
[2017-10-07] MEDS: D5W AND 1/2NSS + 20MEQ KCL 1,000 ML IV SCH (16:05)
[2017-10-07] MEDS: KETOROLAC TROMETHAMINE 15 MG/ML VIAL IV. SCH ×2 (16:12→21:36)
[2017-10-07] MEDS: FERROUS GLUCONATE 324 MG TAB PO SCH (17:48)
[2017-10-07] MEDS: SPIRONOLACTONE/HCTZ 25-25 PO SCH (17:48)
--- NOTE | 2017-10-07 20:04 | Medical Consult ---
Consultation Date of Consultation: Oct 07, 2017. Attending Physician: Mode Gorman M.D. Reason for Consultation: Medical management History of Present Illness 76 y/o M who was admitted earlier today s/p R TKA with Dr. Gorman. Pt is doing well post-op. He had not eaten yet by the time of my exam and is hungry. Pt denies fever, SOB, chest pain, abd pain, n/v/c/d, LE pain or swelling. Past Medical/Surgical History CAD s/p stents x5 HTN Hyperlipidemia PVD Hx of PE in 2010 Family History Family history was reviewed; no changes noted. Social History Smoking Status: Current Some Day Smoker (pipe, quit cigarettes x20 yrs) Alcohol Use: none (quit x 20yrs) Drug Use: none Marital Status: single Housing Status: lives alone Occupation Status: retired Allergies Coded Allergies: Warfarin (Verified Allergy, Intermediate, hives, rash, 10/07/17) Statins (Verified Adverse Reaction, Intermediate, muscle weakness,pain, cramps, 10/07/17) 09/10/11: pt not willing to ever take again. Current Inpatient Medications Current Inpatient Medications Medications (Trade) Dose Ordered Sig/Felix Route Start Time Stop Time Status Last Admin Dose Admin Potassium Chloride/Dextrose/ Sod Cl 1,000 ml @ 100 mls/hr Q10H IV 10/07/17 16:00 10/08/17 15:59 10/07/17 16:05 100 MLS/HR Ketorolac Tromethamine (Toradol Inj) 15 mg Q6H IV. 10/07/17 16:00 10/08/17 15:59 10/07/17 16:12 15 MG Oxycodone HCl (Roxicodone Immediate Rel Tab) 1 TABLET FOR PAIN RATING... Q4H PRN PO 10/07/17 13:30 10/21/17 13:29 Morphine Sulfate (MoRPHine SULFATE INJ) 2 mg Q2HWA PRN IV 10/07/17 13:30 10/21/17 13:29 Acetaminophen (Tylenol Tab) 1,000 mg Q8H PO 10/07/17 22:00 11/06/17 21:59 Magnesium Hydroxide (Milk Of Magnesia Susp) 30 ml Q6H PRN PO 10/07/17 13:30 11/06/17 13:29 Docusate Sodium (coLACE CAP) 100 mg BID PO 10/07/17 21:00 11/06/17 20:59 Diphenhydramine HCl (Benadryl Cap) 25 mg Q8H PRN PO 10/07/17 13:30 11/06/17 13:29 Al Hydrox/Mg Hydrox/Simethicone (Maalox Max Susp) 15 ml Q4H PRN PO 10/07/17 13:30 11/06/17 13:29 Zolpidem Tartrate (Ambien Tab) 5 mg HSZ PRN PO 10/07/17 13:30 11/06/17 13:29 Multivitamins (Multivitamin Tab) 1 tab QAM PO 10/08/17 09:00 11/07/17 08:59 Ondansetron HCl (Zofran Inj) 4 mg Q6H PRN IV 10/07/17 13:30 11/06/17 13:29 Metoclopramide HCl (Reglan Inj) 10 mg Q6H PRN IV 10/07/17 13:30 11/06/17 13:29 Ferrous Gluconate (Ferrous Gluconate Tab) 324 mg TIDM PO 10/07/17 17:45 11/06/17 17:59 10/07/17 17:48 324 MG Pantoprazole Sodium (Protonix Tab) 40 mg QAM PO 10/08/17 09:00 10/12/17 08:59 Tamsulosin HCl (Flomax Cap) 0.4 mg QAM PRN PO 10/07/17 13:30 11/06/17 13:29 Dexamethasone Sodium Phosphate 10 mg/Syringe 2.5 ml @ 1 mls/min TODAY@0730 IV 10/08/17 07:30 10/08/17 07:33 Aspirin (Ecotrin Tab) 81 mg QAM PO 10/08/17 09:00 11/07/17 08:59 Clopidogrel Bisulfate (plAVix TAB) 75 mg QAM PO 10/08/17 09:00 11/07/17 08:59 HCTZ/ Spironolactone (Aldactazide 25/ 25 Tab) 1 tab BID17 PO 10/07/17 17:00 11/06/17 16:59 10/07/17 17:48 1 TAB Morphine Sulfate (MoRPHine SULFATE INJ) 4 mg Q2HWA PRN IV 10/07/17 15:15 10/21/17 15:14 Morphine Sulfate (MoRPHine SULFATE INJ) 6 mg Q2HWA PRN IV 10/07/17 15:15 10/21/17 15:14 Cefazolin Sodium 2000 mg/Syringe 15 ml @ 3.75 mls/ min Q8H IV 10/07/17 20:00 10/08/17 04:03 Review of Systems Pertinent positives and negatives reviewed in HPI--all others negative Physical Exam Date Time Temp Pulse Resp B/P (MAP) Pulse Ox O2 Delivery O2 Flow Rate FiO2 10/07/17 19:46 36.3 89 18 107/69 (82) 98 Room Air 10/07/17 18:10 36.2 67 16 133/63 (86) 98 Nasal Cannula 2.0 10/07/17 17:21 36.6 51 18 116/69 (85) 97 Nasal Cannula 2.0 10/07/17 16:10 36.4 77 16 132/60 (84) 97 Nasal Cannula 3.0 10/07/17 15:44 36.4 55 16 130/62 (84) 97 Nasal Cannula 3.0 10/07/17 15:10 Nasal Cannula 3.0 10/07/17 15:10 36.3 60 16 130/62 (84) 96 Nasal Cannula 3.0 10/07/17 14:40 94 Nasal Cannula 4.0 10/07/17 14:40 36.7 87 18 119/66 (83) 94 Nasal Cannula 4.0 10/07/17 14:21 36.2 76 20 113/64 93 Nasal Cannula 2 10/07/17 14:15 71 20 120/55 94 Nasal Cannula 2 10/07/17 14:05 70 17 95/58 93 Nasal Cannula 2 10/07/17 13:55 71 18 95/59 94 Nasal Cannula 2 10/07/17 13:45 71 18 89/58 93 Nasal Cannula 2 10/07/17 13:35 70 21 95/63 97 Oxymask 10 10/07/17 13:25 72 19 88/63 95 Oxymask 10 10/07/17 13:16 36.8 71 16 99/70 94 Oxymask 10 10/07/17 09:40 36.4 63 20 143/88 94 Room Air General Appearance: WD/WN, no apparent distress Head: normocephalic, atraumatic Eyes: normal inspection, sclerae normal Respiratory/Chest: normal breath sounds, no respiratory distress Cardiovascular: regular rate, rhythm, no edema Abdomen/GI: non tender, soft Extremities/Musculoskelatal: no calf tenderness, no pedal edema Neurologic/Psych: alert, normal mood/affect, oriented x 3 Skin: normal color, warm/dry Assessment & Plan 76 y/o M who was admitted earlier today s/p R TKA with Dr. Gorman. R TKA: as per ortho DVT proph and diet as per ortho CAD: resume aspirin when able HTN: no current meds Hyperlipidemia: continue home meds
[2017-10-07] MEDS: CEFAZOLIN IV 2,000 MG in SYRINGE 0 ML IV SCH (20:28)
[2017-10-07] MEDS: DOCUSATE SODIUM 100 MG CAP PO SCH (20:29)
[2017-10-07] MEDS: ACETAMINOPHEN 500 MG TAB PO SCH (21:36)
[2017-10-08] VITALS (12 sets, daily range): BP systolic 111–138; BP diastolic 64–74; PULSE 60–97; TEMP 34.5–36.8; O2SAT 94–99
[2017-10-08] MEDS: D5W AND 1/2NSS + 20MEQ KCL 1,000 ML IV SCH ×2 (01:23→11:07)
[2017-10-08] MEDS: CEFAZOLIN IV 2,000 MG in SYRINGE 0 ML IV SCH (03:51)
[2017-10-08] MEDS: KETOROLAC TROMETHAMINE 15 MG/ML VIAL IV. SCH (03:51)
[2017-10-08] MEDS: ACETAMINOPHEN 500 MG TAB PO SCH ×3 (05:42→21:19)
[2017-10-08 06:36] LABS: HEMATOCRIT 37.9 % (42-52); HEMOGLOBIN 13.6 g/dL (14.0-18.0); MEAN CELL VOLUME 92.7 fL (80-100); MEAN CORPUSCULAR HEMOGLOBIN 33.3 pg (25-34); MEAN CORPUSCULAR HGB CONC 35.9 g/dl (32-36); MEAN PLATELET VOLUME 9.6 fL (7.4-10.4); PLATELET COUNT 200 K/uL (130-400); RED CELL DISTRIBUTION WIDTH CV 13.2 % (11.5-14.5); RED CELL DISTRIBUTION WIDTH SD 44.6 fL (36.4-46.3); WHITE BLOOD COUNT 14.75 K/uL (4.8-10.8)
[2017-10-08 07:12] LABS: CALCIUM 7.9 mg/dl (8.5-10.1); CREATININE 1.76 mg/dl (0.60-1.40); POTASSIUM 3.9 mmol/L (3.5-5.1)
[2017-10-08] MEDS ORDERED: DEXAMETHASONE INJ 10 MG in SYRINGE 0 ML IV SCH (07:30)
--- NOTE | 2017-10-08 07:46 | Anesthesiology Progress Note ---
Anesthesia Post Op Note Date & Time Oct 08, 2017 at 07:42 Vital Signs Pain Intensity: 0.0 Vital Signs Past 12 Hours Date Time Temp Pulse Resp B/P (MAP) Pulse Ox O2 Delivery O2 Flow Rate FiO2 10/08/17 04:10 36.8 70 18 112/71 (85) 94 Room Air 10/07/17 23:32 Room Air 10/07/17 23:20 36.8 95 18 110/72 (85) 94 Room Air 10/07/17 19:46 36.3 89 18 107/69 (82) 98 Room Air Notes Mental Status: alert / awake / arousable, participated in evaluation Pt Amnestic to Procedure: Yes Nausea / Vomiting: adequately controlled Pain: adequately controlled Airway Patency, RR, SpO2: stable & adequate BP & HR: stable & adequate Hydration State: stable & adequate Neuraxial Anesthesia: was administered Anesthetic Complications: no major complications apparent Pt reports that he cannot feel or move his foot from the ankle down. Denies any pain in the knee and has feeling everywhere from the ankle up. Informed Dr Caceres. We do not suspect that this is from the adductor canal block or spinal. Pt says he informed the PA this morning and was told to keep waiting for sensation to come back.
--- NOTE | 2017-10-08 08:12 | Orthopedic Progress Note ---
Orthopedic Progress Note Date of Service Oct 08, 2017. Subjective Post OP Day: 1 Reports: feeling well Objective N/V intact (Footdrop noted), dressing C/D/I (Hemovac in place, output 275 ml overight) Date Time Temp Pulse Resp B/P (MAP) Pulse Ox O2 Delivery O2 Flow Rate FiO2 10/08/17 04:10 36.8 70 18 112/71 (85) 94 Room Air 10/07/17 23:32 Room Air 10/07/17 23:20 36.8 95 18 110/72 (85) 94 Room Air 10/07/17 19:46 36.3 89 18 107/69 (82) 98 Room Air 10/07/17 18:10 36.2 67 16 133/63 (86) 98 Nasal Cannula 2.0 10/07/17 17:21 36.6 51 18 116/69 (85) 97 Nasal Cannula 2.0 10/07/17 16:10 36.4 77 16 132/60 (84) 97 Nasal Cannula 3.0 10/07/17 15:44 36.4 55 16 130/62 (84) 97 Nasal Cannula 3.0 10/07/17 15:10 Nasal Cannula 3.0 10/07/17 15:10 36.3 60 16 130/62 (84) 96 Nasal Cannula 3.0 10/07/17 14:40 94 Nasal Cannula 4.0 10/07/17 14:40 36.7 87 18 119/66 (83) 94 Nasal Cannula 4.0 10/07/17 14:21 36.2 76 20 113/64 93 Nasal Cannula 2 10/07/17 14:15 71 20 120/55 94 Nasal Cannula 2 10/07/17 14:05 70 17 95/58 93 Nasal Cannula 2 10/07/17 13:55 71 18 95/59 94 Nasal Cannula 2 10/07/17 13:45 71 18 89/58 93 Nasal Cannula 2 10/07/17 13:35 70 21 95/63 97 Oxymask 10 10/07/17 13:25 72 19 88/63 95 Oxymask 10 10/07/17 13:16 36.8 71 16 99/70 94 Oxymask 10 10/07/17 09:40 36.4 63 20 143/88 94 Room Air Laboratory Results 24 Hours: Test 10/08/17 06:16 Hematocrit 37.9 % Hemoglobin 13.6 g/dL Assessment & Plan Assessment: 76 yo male stable POD #1 s/p right TKA, footdrop likely secondary to intra-op injection Plan: 1. Med management 2. DVT prophylaxis- resume Plavix and ASA, SCDs 3. PT/OT 4. D/C planning- pt interested in HH
--- NOTE | 2017-10-08 08:15 | Discharge Instructions ---
Discharge Instructions Date of Service Oct 08, 2017. Admission Reason for Admission: Right Knee Osteoarthritis Discharge Discharge Diagnosis / Problem: Right knee arthritis Discharge Goals Goal(s): Decrease discomfort, Improve function Activity Recommendations Activity Limitations: as noted below Weightbearing Status: Right weightbearing (as tolerated) . Instructions / Follow-Up Instructions / Follow-Up ACTIVITY RECOMMENDATIONS: SELF CARE INSTRUCTIONS AFTER TOTAL KNEE REPLACEMENT A. You may need to continue a physical therapy program after discharge from the hospital. There are several options available to you. Your doctor will assist you in selecting the best one for you. 1. An out-patient facility 2 to 3 times a week for therapy or home therapy. 2. Continue working on all exercises taught to you in the hospital. Your goals should be to increase bending of your knee to 90 degrees and beyond and to fully straighten your knee. B. You may progress at your own pace from walking with a walker or crutches to a cane; then to no assistive devices. C. Make walking a part of your daily routine. Be up as much as comfortable with rest periods throughout the day. Rest with leg elevation is very important. Use the ice wrap frequently for the first 3-4 weeks. D. There are no restrictions on activities. You may ride in a car, shop, participate in draw frame tender and all social activities. E. Wear the long elastic stockings (JELANI hose) 20 hours a day for 2 weeks after surgery. They can be removed several times a day for laundering and for a bath. F. You may shower, no tub baths until cleared by your doctor. SPECIAL CARE INSTRUCTIONS: VERY IMPORTANT TO READ AND REVIEW A. There are a few signs you need to watch for after you are home. Call [facility] if you notice any of the followin. Increased severe knee pain. Some pain is expected especially when you exercise. 2. Increased swelling in your leg or knee; pain or swelling of the calf muscle in either lower leg. 3. Any fluid drainage from the incision. 4. Shortness of breath or chest pain. B. Please call [facility] at if you have any concerns or questions about your operation or recovery. The doctor or his nurse will return your call promptly. C. You must take antibiotics before dental work, bladder, bowel or other surgery. Your doctor will provide you with a permanent care to carry describing this precaution. IMPORTANT: * REMEMBER TO TAKE ASPIRIN, 81 MG, TWICE DAILY FOR 4 WEEKS UNLESS OTHERWISE DIRECTED. THIS IS YOUR BLOOD THINNER. * HIGH RISK PATIENTS MAY BE PRESCRIBED A STRONGER BLOOD THINNER. THIS WILL BE PROVIDED AT DISCHARGE. * CALL IF INCREASED PAIN, REDNESS, DRAINAGE OR FEVER GREATER THAT 101. * WEAR JELANI HOSE 20 HOURS PER DAY FOR 2 WEEKS. * IF YOUR SILVERLON DRESSING HAS BEEN CHANGED TO A REGULAR DRESSING, MAKE SURE YOU CHANGE THE REGULAR DRESSING DAILY. YOU MAY USE AN SOLA WRAP TO KEEP IT SECURED. YOU HAVE A ZIPLINE CLOSURE SYSTEM THAT KEEPS THE INCISION CLOSED. THIS NEEDS TO REMAIN ON FOR 2 WEEKS. YOU MAY SHOWER IF YOU ARE HAVING MINIMAL DRAINAGE FROM THE INCISION. DO NOT SOAK THE WOUND. NO TUB BATHS. DO NOT LET THE SHOWER WATER BEAT ON THE INCISION. CLEAN AROUND THE WOUND WITH MILD SOAP. DO NOT USE OINTMENTS OR CREAMS ON THE INCISION. Silverlon- This is a large adhesive bandage that contains silver ions. This helps your incision heal by fighting off bacteria and protecting it from the outside environment. You are permitted to shower with this dressing. This will remain on your incision for 7 days and then should be removed. Some visible blood or drainage through the dressing window is normal. If there is significant drainage or leaking noted before the 7 days notify your doctor's office immediately. Once removed, keep incision clean and dry. If there is any drainage or redness noted, please call your surgeon. Maintain Zipline closure when removing Silverlon. FOLLOW UP VISIT: If appointment is not already scheduled: Please call [facility] to make a follow-up appointment for 2 weeks after your surgery at . Current Hospital Diet Patient's current hospital diet: Regular Diet Discharge Diet Recommended Diet: Regular Diet Procedures Procedures Performed: Right Total Knee Arthroplasty Pending Studies Studies pending at discharge: no Laboratory Results Hemoglobin A1c Test 09/09/17 12:13 Range/Units Estimated Average Glucose 126 mg/dl Hemoglobin A1c 6.0 H 4.5-5.6 % Medical Emergencies . Who to Call and When: Medical Emergencies: If at any time you feel your situation is an emergency, please call 911 immediately. . Non-Emergent Contact Non-Emergency issues call your: Surgeon Call Non-Emergent contact if: temperature is above 101.5, your pain is not controlled, wound has increased drainage, wound has increased redness . "Provider Documentation" section prepared by Qasim Santa PA-C. . [facility] Monitoring Program Search Results: patient reviewed within database, no issues identified
[2017-10-08] MEDS: FERROUS GLUCONATE 324 MG TAB PO SCH ×3 (08:44→17:59)
[2017-10-08] MEDS: MULTIVITAMIN TAB PO SCH (08:44)
[2017-10-08] MEDS: CLOPIDOGREL BISULFATE 75 MG TAB PO SCH (08:44)
[2017-10-08] MEDS: PANTOprazole SOD 40 MG TAB PO SCH (08:44)
[2017-10-08] MEDS: SPIRONOLACTONE/HCTZ 25-25 PO SCH (08:44)
[2017-10-08] MEDS: ASPIRIN 81 MG ECTAB PO SCH (08:44)
[2017-10-08] MEDS: DOCUSATE SODIUM 100 MG CAP PO SCH ×2 (08:44→21:00)
[2017-10-08] MEDS ORDERED: RXC5 PO (14:31)
[2017-10-08] MEDS ORDERED: ASPI81TA28 PO (14:31)
[2017-10-08] MEDS ORDERED: ACET-24 PO (14:31)
--- NOTE | 2017-10-08 14:32 | Progress Note ---
Subjective Date of Service: Oct 08, 2017. Subjective Pt evaluation today including: conversation w/ patient, conversation w/ family , physical exam, chart review, lab review, review of studies, conversation w/ artist consultant, review of inpatient medication list Up and walk with therapist, doing well, pain fairly controlled, Problem List Medical Problems: (1) Pneumonia Status: Acute Review of Systems Constitutional: + weakness, + fatigue, No fever, No chills, No sweats, No weight loss, No problem reported Eyes: No worsening of vision, No eye pain, No redness, No discharge, No diplopia ENT: No hearing loss, No unusual epistaxis, No nasal symptoms, No sore throat, No tinnitus, No dental problems, No trouble swallowing Respiratory: No cough, No sputum, No wheezing, No shortness of breath, No dyspnea on exertion, No dyspnea at rest, No hemoptysis Cardiac: No chest pain, No orthopnea, No PND, No edema, No claudication, No palpitations Abdomen: No pain, No nausea, No vomiting, No diarrhea, No constipation Musculoskeletal: + joint pain, No muscle pain, No swelling, No calf pain Male : No dysuria, No urinary frequency, No incontinence, No nocturia more than once/night, No slowing stream, No hematuria Neurologic: No memory loss, No paralysis, No weakness, No numbness/tingling, No vertigo, No balance problems Psychiatric: No depression symptoms, No anhedonism, No anxiety, No insomnia, No substance abuse Heme: No abnormal bleeding/bruising, No clotting problems, No swollen lymph nodes, No night sweats Endo: No fatigue, No excessive thirst, No excessive urination Skin: No rash, No itch, No new/changing skin lesions, No color change, No bleeding Objective Vital Signs Date Time Temp Pulse Resp B/P (MAP) Pulse Ox O2 Delivery O2 Flow Rate FiO2 10/08/17 11:48 36.3 97 16 118/64 (82) 96 Room Air 10/08/17 10:36 36.2 10/08/17 09:35 96 Room Air 10/08/17 08:22 36.6 10/08/17 08:16 Room Air 10/08/17 08:12 34.5 10/08/17 08:10 34.6 10/08/17 08:00 34.5 10/08/17 07:55 34.6 60 12 124/64 (84) 96 10/08/17 04:10 36.8 70 18 112/71 (85) 94 Room Air 10/07/17 23:32 Room Air 10/07/17 23:20 36.8 95 18 110/72 (85) 94 Room Air 10/07/17 19:46 36.3 89 18 107/69 (82) 98 Room Air 10/07/17 18:10 36.2 67 16 133/63 (86) 98 Nasal Cannula 2.0 10/07/17 17:21 36.6 51 18 116/69 (85) 97 Nasal Cannula 2.0 10/07/17 16:10 36.4 77 16 132/60 (84) 97 Nasal Cannula 3.0 10/07/17 15:44 36.4 55 16 130/62 (84) 97 Nasal Cannula 3.0 10/07/17 15:10 Nasal Cannula 3.0 10/07/17 15:10 36.3 60 16 130/62 (84) 96 Nasal Cannula 3.0 10/07/17 14:40 94 Nasal Cannula 4.0 10/07/17 14:40 36.7 87 18 119/66 (83) 94 Nasal Cannula 4.0 Physical Exam General Appearance: WD/WN, no apparent distress, + obese Eyes: normal inspection, PERRL, EOMI, sclerae normal ENT: normal ENT inspection, hearing grossly normal, pharynx normal Neck: supple, no adenopathy, thyroid normal, no JVD, no carotid bruits, trachea midline Respiratory/Chest: chest non-tender, lungs clear, normal breath sounds, no respiratory distress, no accessory muscle use Cardiovascular: regular rate, rhythm, no edema, no gallop, no JVD, no murmur Abdomen: normal bowel sounds, non tender, soft, no organomegaly, no pulsatile mass Extremities: normal inspection, no pedal edema, no calf tenderness, normal capillary refill, pelvis stable, + pertinent finding (Left knee in dress) Neurologic/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, no motor/sensory deficits, alert, normal mood/affect, oriented x 3 Skin: normal color, warm/dry, no rash Lymphatic: no adenopathy Laboratory Results Last 24 Hours Test 10/08/17 06:16 White Blood Count 14.75 K/uL Red Blood Count 4.09 M/uL Hemoglobin 13.6 g/dL Hematocrit 37.9 % Mean Corpuscular Volume 92.7 fL Mean Corpuscular Hemoglobin 33.3 pg Mean Corpuscular Hemoglobin Concent 35.9 g/dl RDW Standard Deviation 44.6 fL RDW Coefficient of Variation 13.2 % Platelet Count 200 K/uL Mean Platelet Volume 9.6 fL Sodium Level 132 mmol/L Potassium Level 3.9 mmol/L Chloride Level 101 mmol/L Carbon Dioxide Level 22 mmol/L Anion Gap 9.0 mmol/L Blood Urea Nitrogen 33 mg/dl Creatinine 1.76 mg/dl Est Creatinine Clear Calc Drug Dose 43.7 ml/min Estimated GFR () 42.0 Estimated GFR (Non- 36.2 BUN/Creatinine Ratio 18.8 Random Glucose 142 mg/dl Calcium Level 7.9 mg/dl Assessment and Plan 76 y/o M who was admitte orthopedic service s/p R TKA with Dr. Gorman. R TKA: as per ortho DVT proph, physical therapy and discharge plan and diet as per ortho CAD: resume aspirin when able, continue current meds HTN: no current meds Hyperlipidemia: continue home meds Possible acute kidney injury with CKD stage III,, creatinine increased to 1.76 from 1.31, encourage fluid intake, avoid renal offensive medication and check labs tomorrow, encourage incentive spirometry Continued [facility] stay due to: home environment unsafe for pt Discharge planning: home
[2017-10-09] MEDS: ACETAMINOPHEN 500 MG TAB PO SCH (06:00)
[2017-10-09 06:42] VITALS: BP 138/70
[2017-10-09 06:46] LABS: CALCIUM 8.1 mg/dl (8.5-10.1); CREATININE 1.61 mg/dl (0.60-1.40); POTASSIUM 4.7 mmol/L (3.5-5.1)
[2017-10-09 08:05] VITALS: BP 137/62; PULSE 53; TEMP 36.4; O2SAT 93
--- NOTE | 2017-10-09 08:24 | Orthopedic Progress Note ---
Orthopedic Progress Note Date of Service Oct 09, 2017. Subjective Post OP Day: 2 Denies: chest pain, SOB, nausea / vomiting, light headedness, calf pain Additional Notes: States he had a little nausea this AM which seems to have resolved with having some peanut butter/honey. No other complaints. Pain controlled. Hoping to go home today. Objective calves soft nontender, N/V intact, A&O x3, toes mobile New silverlon dressing put on by nursing due to drainage. Current Silverlon dressing not sticking very well to the skin distally. Date Time Temp Pulse Resp B/P (MAP) Pulse Ox O2 Delivery O2 Flow Rate FiO2 10/09/17 06:42 138/70 (92) 10/09/17 00:14 Room Air 10/08/17 23:05 36.7 96 16 111/74 (86) 99 10/08/17 19:45 Room Air 10/08/17 15:52 138/64 (88) 10/08/17 15:41 36.4 70 18 94 Room Air 10/08/17 11:48 36.3 97 16 118/64 (82) 96 Room Air 10/08/17 10:36 36.2 10/08/17 09:35 96 Room Air 10/08/17 08:22 36.6 10/08/17 08:16 Room Air Assessment & Plan Assessment: 76 yo male stable POD #2 s/p right TKA, footdrop resolved KENNEY Plan: 1. Med management - Creatinine starting to come down 2. DVT prophylaxis- resume Plavix and ASA, SCDs 3. PT/OT 4. D/C planning- Plan for dc today if ok with Med Service. Plan for services. Inhouse Planning Pain Management: Morphine, PO Tylenol, Oxy IR DVT Prophylaxis: TEDs, SCDs, ASA, other (Plavix) Discharge Planning Discharge Planning: home with home health
[2017-10-09] MEDS: DOCUSATE SODIUM 100 MG CAP PO SCH (08:43)
[2017-10-09] MEDS: CLOPIDOGREL BISULFATE 75 MG TAB PO SCH (08:43)
[2017-10-09] MEDS: ASPIRIN 81 MG ECTAB PO SCH (08:43)
[2017-10-09] MEDS: MULTIVITAMIN TAB PO SCH (08:43)
[2017-10-09] MEDS: FERROUS GLUCONATE 324 MG TAB PO SCH (08:44)
[2017-10-09] MEDS: PANTOprazole SOD 40 MG TAB PO SCH (08:44)
[2017-10-09 11:47] VITALS: BP 137/62; PULSE 53; TEMP 36.4; O2SAT 93
--- NOTE | 2017-10-09 14:18 | Progress Note ---
Subjective Date of Service: Oct 09, 2017. Subjective Pt evaluation today including: conversation w/ patient, physical exam, chart review, lab review, review of studies, conversation w/ sap payroll consultant, review of inpatient medication list Been well, up and walk, pain well controlled Problem List Medical Problems: (1) Pneumonia Status: Acute Review of Systems Constitutional: No fever, No chills, No sweats, No weight loss, No weakness, No fatigue, No problem reported Eyes: No worsening of vision, No eye pain, No redness, No discharge, No diplopia ENT: No hearing loss, No unusual epistaxis, No nasal symptoms, No sore throat, No tinnitus, No dental problems, No trouble swallowing Respiratory: No cough, No sputum, No wheezing, No shortness of breath, No dyspnea on exertion, No dyspnea at rest, No hemoptysis Cardiac: No chest pain, No orthopnea, No PND, No edema, No claudication, No palpitations Abdomen: No pain, No nausea, No vomiting, No diarrhea, No constipation Musculoskeletal: + joint pain, No muscle pain, No swelling, No calf pain Male : No dysuria, No urinary frequency, No incontinence, No nocturia more than once/night, No slowing stream, No hematuria Neurologic: No memory loss, No paralysis, No weakness, No numbness/tingling, No vertigo, No balance problems Psychiatric: No depression symptoms, No anhedonism, No anxiety, No insomnia, No substance abuse Heme: No abnormal bleeding/bruising, No clotting problems, No swollen lymph nodes, No night sweats Endo: No fatigue, No excessive thirst, No excessive urination Skin: No rash, No itch, No new/changing skin lesions, No color change, No bleeding Objective Vital Signs Date Time Temp Pulse Resp B/P (MAP) Pulse Ox O2 Delivery O2 Flow Rate FiO2 10/09/17 11:47 36.4 53 16 93 Room Air 10/09/17 08:05 36.4 53 16 137/62 (87) 93 Room Air 10/09/17 07:30 Room Air 10/09/17 06:42 138/70 (92) 10/09/17 00:14 Room Air 10/08/17 23:05 36.7 96 16 111/74 (86) 99 10/08/17 19:45 Room Air 10/08/17 15:52 138/64 (88) 10/08/17 15:41 36.4 70 18 94 Room Air Physical Exam General Appearance: WD/WN, no apparent distress, + obese Eyes: normal inspection, PERRL, EOMI, sclerae normal ENT: normal ENT inspection, hearing grossly normal, pharynx normal Neck: supple, no adenopathy, thyroid normal, no JVD, no carotid bruits, trachea midline Respiratory/Chest: chest non-tender, lungs clear, normal breath sounds, no respiratory distress, no accessory muscle use Cardiovascular: regular rate, rhythm, no edema, no gallop, no JVD, no murmur Abdomen: normal bowel sounds, non tender, soft, no organomegaly, no pulsatile mass Extremities: normal inspection, no pedal edema, no calf tenderness, normal capillary refill, pelvis stable, + pertinent finding (Right knee in dress,) Neurologic/Psychiatric: interpreter and translator II-XII nml as tested, no motor/sensory deficits, alert, normal mood/affect, oriented x 3 Skin: normal color, warm/dry, no rash Lymphatic: no adenopathy Laboratory Results Last 24 Hours Test 10/09/17 06:03 Sodium Level 136 mmol/L Potassium Level 4.7 mmol/L Chloride Level 106 mmol/L Carbon Dioxide Level 25 mmol/L Anion Gap 6.0 mmol/L Blood Urea Nitrogen 40 mg/dl Creatinine 1.61 mg/dl Est Creatinine Clear Calc Drug Dose 47.7 ml/min Estimated GFR () 46.8 Estimated GFR (Non- 40.4 BUN/Creatinine Ratio 24.7 Random Glucose 121 mg/dl Calcium Level 8.1 mg/dl Magnesium Level 2.0 mg/dl Assessment and Plan 76 y/o M who was admitte orthopedic service s/p R TKA with Dr. Gorman. R TKA: as per ortho, DVT proph, physical therapy and discharge plan and diet as per ortho CAD: resume aspirin when able, continue current meds HTN: no current meds Hyperlipidemia: continue home meds Possible acute kidney injury with CKD stage III, creatinine increased to 1.76 from 1.31, today is improved to 1.6, Discussed with patient about the follow-up plan, he said nobody told him has kidney problem before, advised to follow-up with PCP to check kidney function in 1 week, he understands and agreed encourage fluid intake, avoid renal offensive medication, encourage incentive spirometry Continued [facility] stay due to: home environment unsafe for pt Discharge planning: home
== END 2017-10-09 12:35 | disposition home health service (06) | DRG 470 ==
LOC: C.ACU 08:56 → C.3E 10:35 → ENRESERV 14:04
PROC: 0SRC0J9 Replacement of Right Knee Joint with Synthetic Substitute, Cemented, Open Approach (ICD-10-PCS; principal; 2017-10-07 11:45)
DX: M17.11 Unilateral primary osteoarthritis, right knee (principal); N17.9 Acute kidney failure, unspecified; I13.10 Hypertensive heart and chronic kidney disease without heart failure, with stage 1 through stage 4 chronic kidney disease, or unspecified chronic kidney disease; I25.10 Atherosclerotic heart disease of native coronary artery without angina pectoris; I73.9 Peripheral vascular disease, unspecified; N18.3 Chronic kidney disease, stage 3 (moderate); E78.5 Hyperlipidemia, unspecified; F17.290 Nicotine dependence, other tobacco product, uncomplicated; E66.9 Obesity, unspecified; Z68.36 Body mass index [BMI] 36.0-36.9, adult; Z86.711 Personal history of pulmonary embolism; Z95.5 Presence of coronary angioplasty implant and graft; Z95.820 Peripheral vascular angioplasty status with implants and grafts; Z96.643 Presence of artificial hip joint, bilateral; Z85.820 Personal history of malignant melanoma of skin; Z79.02 Long term (current) use of antithrombotics/antiplatelets; Z79.82 Long term (current) use of aspirin; Z79.899 Other long term (current) drug therapy; Z88.8 Allergy status to other drugs, medicaments and biological substances

== ENCOUNTER → 2017-10-13 | Outpatient (CLI) | payer OTHER, MEDICARE ==
[~2017-10-13] MED LIST changes: +ACET-24 PO; -ACETAMINOPHEN 500 MG TAB PO SCH; -ATROPINE SULFATE 0.1 MG/ML 5ML SYR IV PRN; -BUPIVACAINE 0.25% 30 ML VIAL ONE; -BUPIVACAINE 0.5 % 5 MG/1 ML PF 10ML VIAL ONE; -CEFAZOLIN 2000MG IV PUSH 15 ML IV SCH; -CeleBREX 200 MG CAP PO SCH; -DEXAMETHASONE 4 MG TAB PO SCH; -EpHEDrine SULFATE INJ 50 MG/ML AMP IV PRN; -FAMOTIDINE 20 MG TAB PO SCH; -FENTANYL CITRATE INJ 50 MCG/1 ML 2 ML VIAL IV PRN; -GABAPENTIN 300 MG CAP PO SCH; -HYDROmorphone INJ 1 MG/ML SYR IV PRN; -LACTATED RINGER'S 1000ML 1,000 ML IV SCH; -LACTATED RINGER'S 1000ML 500 ML IV SCH; -METOCLOPRAMIDE HCL 10 MG TAB PO SCH; -ONDANSETRON INJ 2 MG/ML 2 ML VIAL IV PRN; -PHENYLEPHRINE 100MCG/ML 5ML SYR IV PRN; -ROPIVACAINE 0.5% 5 MG/ML 30 ML VIAL ONE; -ROPIVACAINE 5MG/ML 30 ML 150 MG, BUPIVACAINE 0.5% MPF INJ 30 ML, EpINEphrine HCL INJ 0.... INFIL SCH; +RXC5 PO
[2017-10-13 13:32] LABS: HEMATOCRIT 35.1 % (42-52); MEAN CELL VOLUME 96.2 fL (80-100); MEAN CORPUSCULAR HEMOGLOBIN 32.9 pg (25-34); MEAN CORPUSCULAR HGB CONC 34.2 g/dl (32-36); MEAN PLATELET VOLUME 9.9 fL (7.4-10.4); PLATELET COUNT 277 K/uL (130-400); RED CELL DISTRIBUTION WIDTH CV 14.3 % (11.5-14.5); RED CELL DISTRIBUTION WIDTH SD 49.5 fL (36.4-46.3); WHITE BLOOD COUNT 10.49 K/uL (4.8-10.8)
[2017-10-13 13:54] LABS: BLOOD UREA NITROGEN 23 mg/dl (7-18); CALCIUM 8.8 mg/dl (8.5-10.1); CARBON DIOXIDE 25 mmol/L (21-32); CREATININE 1.41 mg/dl (0.60-1.40); GLUCOSE 163 mg/dl (70-99); POTASSIUM 4.3 mmol/L (3.5-5.1); SODIUM 136 mmol/L (136-145)
== END | disposition home or self-care (01) ==
LOC: C.LABSPEC 11:01
PROVIDERS: ATTEND Family Medicine
DX: N18.3 Chronic kidney disease, stage 3 (moderate) (principal)

== ENCOUNTER 2017-10-23 10:09 | Inpatient (IN) | payer OTHER, MEDICARE ==
[2017-10-23] VITALS (7 sets, daily range): BP systolic 107–160; BP diastolic 52–84; PULSE 65–77; TEMP 36.5–37.2; O2SAT 94–95; Ht 180.3 cm; Wt 113.8 kg
[~2017-10-23] VITALS: Ht 180.3 cm; Wt 113.8 kg
[2017-10-23] MEDS ORDERED: ONDANSETRON INJ 2 MG/ML 2 ML VIAL IV STA (10:32)
[2017-10-23] MEDS ORDERED: MoRPHine SULFATE 4 MG/ML 1 ML CARP\\VIAL IV STA (10:32)
[2017-10-23] MEDS ORDERED: OPTIRAY 320 IV PRN (10:45)
[2017-10-23 11:19] LABS: HEMATOCRIT 31.8 % (42-52); HEMOGLOBIN 10.9 g/dL (14.0-18.0); MEAN CELL VOLUME 93.8 fL (80-100); MEAN CORPUSCULAR HEMOGLOBIN 32.2 pg (25-34); MEAN CORPUSCULAR HGB CONC 34.3 g/dl (32-36); MEAN PLATELET VOLUME 9.1 fL (7.4-10.4); PLATELET COUNT 329 K/uL (130-400); RED CELL DISTRIBUTION WIDTH SD 48.1 fL (36.4-46.3); WHITE BLOOD COUNT 18.28 K/uL (4.8-10.8)
[2017-10-23 11:29] LABS: INR 1.1 (0.9-1.1); PTT PATIENT 32.1 SECONDS (21.0-31.0)
[2017-10-23] MEDS ORDERED: ASPI81TA28 PO (11:40)
[2017-10-23] MEDS ORDERED: OXYC-609 PO (11:41)
[2017-10-23 11:58] LABS: BASO % 0.2 %; BASO ABS # 0.03 K/uL (0-0.2); EOS % 0.2 %; EOS ABS # 0.03 K/uL (0-0.5); IG# 0.09 K/uL (0.00-0.02); LYMPH ABS # 0.91 K/uL (1.2-3.4); MONO % 10.6 %; MONO ABS # 1.94 K/uL (0.11-0.59); NEUT % 83.5 %; NEUT ABS # 15.28 K/uL (1.4-6.5)
[2017-10-23 12:06] LABS: CALCIUM 8.4 mg/dl (8.5-10.1); CREATININE 1.43 mg/dl (0.60-1.40); POTASSIUM 3.6 mmol/L (3.5-5.1)
--- NOTE | 2017-10-23 12:47 | DIAGNOSTIC IMAGING REPORT ---
CT SCAN OF THE PELVIS WITH IV CONTRAST CLINICAL HISTORY: Perianal pain. Purulent drainage. COMPARISON STUDY: Pelvic CT dated 04/10/2012. TECHNIQUE: Following the IV administration of 117 cc of Optiray 320, CT scan of the pelvis is performed from the pelvic inlet to the proximal femora. Images are reviewed in the axial, sagittal, and coronal planes. IV contrast was administered without complication. A dose lowering technique was utilized adhering to the principles of ALARA. Evaluation of the pelvis is degraded by streak artifact from bilateral hip arthroplasties. CT DOSE: 934.11 mGy.cm FINDINGS: There is a large complex gas and fluid containing collection the right perianal soft tissues which extends from the levator musculature inferiorly along the median gluteal crease. This measures approximately 10 x 6 x 3 cm and there is surrounding inflammatory change. The appearance is consistent with a perianal abscess. This approaches the inferior median gluteal crease, and a fistulous tract is not excluded. The rectum and perirectal soft tissues are normal in appearance. The visualized loops of small bowel and colon in the pelvis are normal in caliber. The bladder is decompressed and not well evaluated. The prostate gland appears diminutive and heterogeneous. No pelvic sidewall or inguinal lymphadenopathy is seen. There is advanced atherosclerotic calcification of the distal abdominal aorta. An aneurysm of the distal abdominal aorta measures up to 4.0 cm. There is advanced atherosclerotic calcification of the iliac and common femoral arteries. Stents are present in the right common iliac artery as well as in the right superficial femoral artery. These are likely patent but difficult to assess without angiographic technique. The skeletal structures are osteopenic. Bilateral hip arthroplasties are in place. No lytic or blastic lesion is identified. Lumbosacral spondylosis is partially imaged. Postlaminectomy change is seen in the lower lumbar spine. IMPRESSION: 1. There is a large right-sided perianal abscess as detailed above. A fistulous tract to the median gluteal crease is not excluded. 2. 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 This has increased in size as compared to 2011. 3. Additional findings as above. Electronically signed by: Dionte Altamn M.D. 10/23/2017 12:46 PM Dictated Date/Time: 10/23/2017 12:39 PM
[2017-10-23] MEDS ORDERED: PIPERACILLIN/TAZOBACTAM 4.5 GM/100ML D5W IV STA (13:01)
--- NOTE | 2017-10-23 13:34 | History and Physical ---
History & Physical Date Oct 23, 2017. Chief Complaint buttock pain History of Present Illness The patient is a 76 year old male with complaints of Past Medical/Surgical History Medical Problems: (1) Coronary Atherosclerosis Of [place] Coronary Vessel (2) Degenerative arthritis of right knee (3) DM (diabetes mellitus) (4) Hyperlipidemia Nec/Nos (5) Hypertension Nos Recent 10/07/17- Rt TKR ([place] ) Additional History Hepatic Disease: No Endocrine Disorder: No Kidney Disease: No Hypertension: Yes Heart Disease: Yes Bleeding Tendencies: Yes Infectious Diseases: Yes Allergies Coded Allergies: Warfarin (Verified Allergy, Intermediate, hives, rash, 10/23/17) Statins (Verified Adverse Reaction, Intermediate, muscle weakness,pain, cramps, 10/23/17) 09/10/11: pt not willing to ever take again. Home Medications Scheduled Acetaminophen (Sb Non-Aspirin Extra Stre), 1,000 MG PO Q8H Aspirin (Aspirin Ec), 81 MG PO DAILY Cholecalciferol (Vitamin D3), 1 TAB PO QAM Clopidogrel (Plavix), 75 MG PO QAM Hctz/Spironolactone 25MG/25MG (Aldactazide 25MG/25MG), 1 TAB PO BID Oxycodone HCl (Oxycodone HCl), 5-10 MG PO PRN Physical Examination Skin: warm/dry Eyes: sclerae normal Head: atraumatic Neck: supple Respiratory/Chest: no respiratory distress Cardiovascular: regular rate, rhythm Abdomen / GI: normal bowel sounds, non tender Neurologic/Psych: alert Addiitonal Comments: perirectal swelling, erythema, fluctuance Diagnosis Large perirectal abscess- Rt side
[2017-10-23] MEDS ORDERED: LACTATED RINGER'S 1000ML 1,000 ML IV SCH (13:35)
[2017-10-23] MEDS ORDERED: HYDROmorphone INJ 2 MG/ML SYR/VIAL IV PRN ×2 (13:45→14:30)
[2017-10-23] MEDS ORDERED: HYDROmorphone INJ 0.5 MG/0.5 ML SYR IV PRN ×2 (13:45→15:45)
[2017-10-23] MEDS ORDERED: ONDANSETRON INJ 2 MG/ML 2 ML VIAL IV PRN ×3 (13:45→15:45)
[2017-10-23] MEDS ORDERED: PIPERACILL/TAZOBAC CONSULT ACTIVE PRN (14:00)
[2017-10-23] MEDS ORDERED: ATROPINE SULFATE 0.1 MG/ML 5ML SYR IV PRN (14:30)
[2017-10-23] MEDS ORDERED: MEPERIDINE HCL 25 MG/ML CARP IV PRN (14:30)
[2017-10-23] MEDS ORDERED: FLUMAZENIL 0.1 MG/1 ML 10 ML VIAL IV PRN (14:30)
[2017-10-23] MEDS ORDERED: EpHEDrine SULFATE INJ 50 MG/ML AMP IV PRN (14:30)
[2017-10-23] MEDS ORDERED: PHENYLEPHRINE 100MCG/ML 5ML SYR IV PRN (14:30)
[2017-10-23] MEDS ORDERED: LABETALOL HCL IV 5 MG/ML 20ML IV PRN (14:30)
[2017-10-23] MEDS ORDERED: FENTANYL CITRATE INJ 50 MCG/1 ML 2 ML VIAL IV PRN (14:30)
[2017-10-23] MEDS ORDERED: NALOXONE HCL 0.4 MG/1 ML VIAL/CARP IV PRN (14:30)
[2017-10-23] MEDS ORDERED: PROPOFOL IV EMULSION 10 MG/ML 20 ML VIAL IV ONE (14:55)
[2017-10-23] MEDS ORDERED: LIDOCAINE HCL 2% 2 ML VIAL (20MG/ML) ONE (14:55)
[2017-10-23] MEDS ORDERED: BUPIVACAINE 0.5 % 5 MG/1 ML MPF 30ML VIAL ONE (14:58)
[2017-10-23] MEDS ORDERED: BACITRACIN 50000 UNIT VIAL ONE (14:58)
--- NOTE | 2017-10-23 15:31 | [facility] Operative Report ---
Operative Report Operative Date Oct 23, 2017. Pre-Operative Diagnosis Rectal Pain Post-Operative Diagnosis Perirectal abscess Procedure(s) Performed Incision and Drainage of [place]-rectal abscess Surgeon Favian Oliveira Clarifier Operator Helper Surgeon(s) none Estimated Blood Loss 5mL Findings very large ischiorectal abscess Specimens A. Perirectal abscess for gram stain, culture and sensitivity, anaerobic and aerobic Drains 1/2 inch murray Anesthesia Type General Complication(s) none Disposition Recovery Room / PACU I attest to the content of the Intraoperative Record and any orders documented therein. Any exceptions are noted below.
[2017-10-23] MEDS ORDERED: OXYCODONE/ACETAMINOPHEN 5-325 TAB PO PRN ×2 (15:45)
[2017-10-23] MEDS ORDERED: HYDROmorphone INJ 1 MG/ML SYR IV PRN (15:45)
--- NOTE | 2017-10-23 15:48 | OPERATIVE REPORT ---
DATE OF OPERATION: 10/23/2017 NAME OF OPERATION: Incision and drainage of ischiorectal abscess. PREOPERATIVE DIAGNOSIS: Ischiorectal abscess. POSTOPERATIVE DIAGNOSIS: Same. STAFF SURGEON: Dr. Oliveira. ANESTHESIA: General. PROCEDURE: The patient was brought in the operating room and placed on the operating table in the lithotomy position after appropriate anesthetic. His perianal area was prepped and draped in usual fashion. He had an area of fluctuance on the right side which was old scar tissue which was most likely from his history of fistula formation. On CAT scan, the patient had a very large 12 cm long abscess reaching into the ischiorectal area. At this point, the area of fluctuance which was approximately 4-5 cm from the anus, was opened, encountering significant purulence which was cultured. On digital exploration, the cavity was at least 12 cm long, also using instruments. This was evident on CAT scan also. There was also a pocket to the right which was probed. At this point, after appropriate irrigation, a large half-inch Patrice drain was placed high into the abscess and then secured to the skin using 3-0 silk suture. Dressing was applied and the patient transferred to recovery room in stable condition. I attest to the content of the Intraoperative Record and any orders documented therein. Any exception s are noted below.
--- NOTE | 2017-10-23 16:13 | Anesthesiology Progress Note ---
Anesthesia Post Op Note Date & Time Oct 23, 2017 at 16:13 Vital Signs Pain Intensity: 0 Vital Signs Past 12 Hours Date Time Temp Pulse Resp B/P (MAP) Pulse Ox O2 Delivery O2 Flow Rate FiO2 10/23/17 16:10 37.2 72 20 128/90 97 Nasal Cannula 3 10/23/17 16:00 68 20 142/57 96 Oxymask 4 10/23/17 15:50 86 20 171/85 97 Oxymask 10 10/23/17 15:42 36.5 72 20 154/72 96 Oxymask 10 10/23/17 13:58 37.1 75 18 126/52 98 Room Air 10/23/17 12:19 84 16 114/58 96 Room Air 10/23/17 10:18 36.3 95 18 124/76 94 Room Air Notes Mental Status: alert / awake / arousable, participated in evaluation Pt Amnestic to Procedure: Yes Nausea / Vomiting: adequately controlled Pain: adequately controlled Airway Patency, RR, SpO2: stable & adequate BP & HR: stable & adequate Hydration State: stable & adequate Anesthetic Complications: no major complications apparent
--- NOTE | 2017-10-23 16:42 | EMERGENCY ROOM VISIT NOTE ---
History Report prepared by Marco Antonio: Silvino Ramirez Under the Supervision of: Dr. Erwin Zaragoza M.D. First contact with patient: 10:21 Chief Complaint: RECTAL PAIN Stated Complaint: FISTULA LEAKING History of Present Illness The patient is a 76 year old male who presents to the Emergency Room with complaints of constant rectal pain that began three days ago. He rates his discomfort as a 10/10 in severity. 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 He reports he is unsure how he developed a fistula. The patient states that he has had four to five surgeries for his fistula with his last operation done by Dr. Thayer three years ago. He reports that for the last three days he has been experiencing consistent rectal pain. The patient reports that his pain has been accompanied by nausea. He states that his rectum has not been bleeding until he came to the hospital. The patient is accompanied by his grandson who states that he noticed a malodor and some leaking from the patient's anus on their way to the ED. The patient denies vomiting, abdominal pain, chest pain, shortness of breath, and urinary symptoms. He reports he has a history of a right knee arthroplasty done on October 07. The patient states that his knee has been healing well and he is not experiencing any issues or pain. Source of History: patient Onset: three days ago Position: other (rectum) Symptom Intensity: 10/10 Timing: constant Associated Symptoms: + nausea, No chest pain, No SOB, No vomiting, No abdominal pain, No urinary symptoms Note: Associated symptoms: rectal leaking Review of Systems See HPI for pertinent positives & negatives. A total of 10 systems reviewed and were otherwise negative. Past Medical & Surgical Medical Problems: (1) Coronary Atherosclerosis Of [place] Coronary Vessel (2) Degenerative arthritis of right knee (3) DM (diabetes mellitus) (4) Hyperlipidemia Nec/Nos (5) Hypertension Nos (6) Perirectal abscess Family History FH: gallbladder disease Heart disease Lung disease Social History Smoking Status: Current Every Day Smoker Alcohol Use: none Drug Use: none Marital Status: single Housing Status: lives alone Occupation Status: retired Current/Historical Medications Scheduled Acetaminophen (Sb Non-Aspirin Extra Stre), 1,000 MG PO Q8H Aspirin (Aspirin Ec), 81 MG PO DAILY Cholecalciferol (Vitamin D3), 1 TAB PO QAM Clopidogrel (Plavix), 75 MG PO QAM Hctz/Spironolactone 25MG/25MG (Aldactazide 25MG/25MG), 1 TAB PO BID Oxycodone HCl (Oxycodone HCl), 5-10 MG PO PRN Allergies Coded Allergies: Warfarin (Verified Allergy, Intermediate, hives, rash, 10/23/17) Statins (Verified Adverse Reaction, Intermediate, muscle weakness,pain, cramps, 10/23/17) 09/10/11: pt not willing to ever take again. Physical Exam Vital Signs Date Time Temp Pulse Resp B/P (MAP) Pulse Ox O2 Delivery O2 Flow Rate FiO2 10/23/17 16:20 71 20 145/70 98 Nasal Cannula 2 10/23/17 16:10 37.2 72 20 128/90 97 Nasal Cannula 3 10/23/17 16:00 68 20 142/57 96 Oxymask 4 10/23/17 15:50 86 20 171/85 97 Oxymask 10 10/23/17 15:42 36.5 72 20 154/72 96 Oxymask 10 10/23/17 13:58 37.1 75 18 126/52 98 Room Air 10/23/17 12:19 84 16 114/58 96 Room Air 10/23/17 10:18 36.3 95 18 124/76 94 Room Air Physical Exam Constitutional: Vital signs reviewed. Eyes: Pupils are equal round reactive to light. Conjunctiva are noninjected. ENT: Pharynx is clear without erythema or exudate. Mucous membranes are moist. Neck supple without meningeal signs. Respiratory: Clear to auscultation bilaterally. Breath sounds are equal bilaterally. Cardiovascular: Regular rate and rhythm. No rubs or gallops. GI: Soft, nondistended and nontender. Bowel sounds are present. Musculoskeletal: Right knee with vertical incisions. Steri-strip in tact. No evidence of discharge, erythema, or tenderness. Integumentary: No cyanosis. Neurological: The patient is awake and alert. No focal deficits. Psychiatric: Normal affect. Rectal: No fistula visible. Soft tissue swelling and tenderness in the right perianal region. Medical Decision & Procedures ER Provider Diagnostic Interpretation: Radiology results as stated below per my review and the radiologist's interpretation: CT SCAN OF THE PELVIS WITH IV CONTRAST CLINICAL HISTORY: Perianal pain. Purulent drainage. COMPARISON STUDY: Pelvic CT dated 04/10/2012. TECHNIQUE: Following the IV administration of 117 cc of Optiray 320, CT scan of the pelvis is performed from the pelvic inlet to the proximal femora. Images are reviewed in the axial, sagittal, and coronal planes. IV contrast was administered without complication. A dose lowering technique was utilized adhering to the principles of ALARA. Evaluation of the pelvis is degraded by streak artifact from bilateral hip arthroplasties. CT DOSE: 934.11 mGy.cm FINDINGS: There is a large complex gas and fluid containing collection the right perianal soft tissues which extends from the levator musculature inferiorly along the median gluteal crease. This measures approximately 10 x 6 x 3 cm and there is surrounding inflammatory change. The appearance is consistent with a perianal abscess. This approaches the inferior median gluteal crease, and a fistulous tract is not excluded. The rectum and perirectal soft tissues are normal in appearance. The visualized loops of small bowel and colon in the pelvis are normal in caliber. The bladder is decompressed and not well evaluated. The prostate gland appears diminutive and heterogeneous. No pelvic sidewall or inguinal lymphadenopathy is seen. There is advanced atherosclerotic calcification of the distal abdominal aorta. An aneurysm of the distal abdominal aorta measures up to 4.0 cm. There is advanced atherosclerotic calcification of the iliac and common femoral arteries. Stents are present in the right common iliac artery as well as in the right superficial femoral artery. These are likely patent but difficult to assess without angiographic technique. The skeletal structures are osteopenic. Bilateral hip arthroplasties are in place. No lytic or blastic lesion is identified. Lumbosacral spondylosis is partially imaged. Postlaminectomy change is seen in the lower lumbar spine. IMPRESSION: 1. There is a large right-sided perianal abscess as detailed above. A fistulous tract to the median gluteal crease is not excluded. 2. 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 This has increased in size as compared to 2011. 3. Additional findings as above. Electronically signed by: Dionte Altman M.D. 10/23/2017 12:46 PM Dictated Date/Time: 10/23/2017 12:39 PM Laboratory Results 10/23/17 10:48 Red Blood Count 3.39, Mean Corpuscular Volume 93.8, Mean Corpuscular Hemoglobin 32.2, Mean Corpuscular Hemoglobin Concent 34.3, Mean Platelet Volume 9.1, Neutrophils (%) (Auto) 83.5, Lymphocytes (%) (Auto) 5.0, Monocytes (%) (Auto) 10.6, Eosinophils (%) (Auto) 0.2, Basophils (%) (Auto) 0.2, Neutrophils # (Auto ) 15.28, Lymphocytes # (Auto) 0.91, Monocytes # (Auto) 1.94, Eosinophils # (Auto ) 0.03, Basophils # (Auto) 0.03 10/23/17 10:48 Test 10/23/17 10:48 10/23/17 16:07 White Blood Count 18.28 K/uL (4.8-10.8) Red Blood Count 3.39 M/uL (4.7-6.1) Hemoglobin 10.9 g/dL (14.0-18.0) Hematocrit 31.8 % (42-52) Mean Corpuscular Volume 93.8 fL (80-100) Mean Corpuscular Hemoglobin 32.2 pg (25-34) Mean Corpuscular Hemoglobin Concent 34.3 g/dl (32-36) Platelet Count 329 K/uL (130-400) Mean Platelet Volume 9.1 fL (7.4-10.4) Neutrophils (%) (Auto) 83.5 % Lymphocytes (%) (Auto) 5.0 % Monocytes (%) (Auto) 10.6 % Eosinophils (%) (Auto) 0.2 % Basophils (%) (Auto) 0.2 % Neutrophils # (Auto) 15.28 K/uL (1.4-6.5) Lymphocytes # (Auto) 0.91 K/uL (1.2-3.4) Monocytes # (Auto) 1.94 K/uL (0.11-0.59) Eosinophils # (Auto) 0.03 K/uL (0-0.5) Basophils # (Auto) 0.03 K/uL (0-0.2) RDW Standard Deviation 48.1 fL (36.4-46.3) RDW Coefficient of Variation 14.0 % (11.5-14.5) Immature Granulocyte % (Auto) 0.5 % Immature Granulocyte # (Auto) 0.09 K/uL (0.00-0.02) Toxic Granulation 1+ Toxic Vacuolation 1+ Dohle Bodies 1+ Prothrombin Time 11.6 SECONDS (9.0-12.0) Prothromb Time International Ratio 1.1 (0.9-1.1) Activated Partial Thromboplast Time 32.1 SECONDS (21.0-31.0) Partial Thromboplastin Ratio 1.2 Anion Gap 9.0 mmol/L (3-11) Est Creatinine Clear Calc Drug Dose 54.2 ml/min Estimated GFR () 54.0 Estimated GFR (Non- 46.6 BUN/Creatinine Ratio 20.6 (10-20) Calcium Level 8.4 mg/dl (8.5-10.1) Bedside Glucose 98 mg/dl (70-99) Laboratory results as reviewed by me. Medications Administered Medications (Trade) Dose Ordered Sig/Felix Route Start Time Stop Time Status Last Admin Dose Admin Piperacillin Sod/ Tazobactam Sod (Zosyn Iv) 4.5 gm NOW STAT IV 10/23/17 13:01 10/23/17 13:02 DC 10/23/17 13:08 4.5 GM Bupivacaine HCl (Marcaine 0.5% MPF Inj) 30 ml STK-MED ONCE .ROUTE 10/23/17 14:58 10/23/17 14:59 DC 10/23/17 14:15 4 ML ED Course 1025: The patient was evaluated in room A12B. A complete history and physical exam was performed. 1301: Ordered Zosyn 4.5 gm IV. 1303: I discussed the patient's case with Dr. Oliveira, [facility] Surgery. He understands the patient's condition and agrees to accept the patient. The patient will be further evaluated. 1305: I reevaluated the patient and updated him and his grandson and the results including aortic aneurysm. Medical Decision This is a 76-year-old male who presents with rectal pain. Differential diagnosis includes perianal abscess, perirectal abscess, sepsis, rectal fistula , cellulitis. I did perform a limited focused review of portions of the patient 's old chart on the electronic medical record. The patient had a recent right knee arthroplasty done by Dr. Gorman on October 07. I did evaluate the patient as noted above. IV access was established. I did order the patient IV morphine and Zofran for his pain but he refused it. I did order and review the patient's blood work as noted in the electronic medical record. His white blood cell count is significantly elevated. I did order a CT of the pelvis. I did review the images myself as well as the radiology report as described above. He does have a large perirectal abscess as well as an aortic aneurysm. I did discuss the test results with the patient and his grandson. I did discuss the case with Dr. Oliveira of surgery. Medication Reconcilliation Current Medication List: was personally reviewed by me Blood Pressure Screening Patient's blood pressure: Normal blood pressure Consults Time Called: 1303 Consulting Physician: Dr. Oliveira, [facility] Surgery Returned Call: 1303 I discussed the patient's case with Dr. Oliveira, [facility] Surgery. He understands the patient's condition and agrees to accept the patient. The patient will be further evaluated. Impression Primary Impression: Perianal abscess Additional Impression: Abdominal aortic aneurysm Scribe Attestation The scribe's documentation has been prepared under my direct and personally reviewed by me in its entirety. I confirm that the note above accurately reflects all work, treatment, procedures, and medical decision making performed by me. Departure Information Dispostion Being Evaluated By Surgeon Referrals Winnie Fletcher DO (PCP) Patient Instructions My [facility] Problem Qualifiers Additional Impression: Abdominal aortic aneurysm Presence of rupture: without rupture Qualified Codes: I71.4 - Abdominal aortic aneurysm, without rupture
[2017-10-23] MEDS: PIPERACILL/TAZOBAC IV 3.375 GM in DEXTROSE 5% 100ML 100 ML IV SCH (17:43)
[2017-10-23] MEDS: SPIRONOLACTONE/HCTZ 25-25 PO SCH (17:43)
--- NOTE | 2017-10-23 22:40 | Progress Note ---
Subjective Date of Service: Oct 23, 2017. Problem List Medical Problems: (1) Abdominal aortic aneurysm Status: Acute (2) Perianal abscess Status: Acute (3) Pneumonia Status: Acute Objective Vital Signs Date Time Temp Pulse Resp B/P (MAP) Pulse Ox O2 Delivery O2 Flow Rate FiO2 10/23/17 19:30 36.6 77 16 107/52 (70) 94 Room Air 10/23/17 17:16 37.2 71 20 145/70 95 Room Air 10/23/17 17:00 36.7 75 18 136/84 (101) 95 Room Air 10/23/17 16:47 95 Room Air 10/23/17 16:30 95 Room Air 10/23/17 16:30 36.5 75 16 160/58 (92) 95 Room Air 10/23/17 16:20 71 20 145/70 98 Nasal Cannula 2 10/23/17 16:10 37.2 72 20 128/90 97 Nasal Cannula 3 10/23/17 16:00 68 20 142/57 96 Oxymask 4 10/23/17 15:50 86 20 171/85 97 Oxymask 10 10/23/17 15:42 36.5 72 20 154/72 96 Oxymask 10 10/23/17 13:58 37.1 75 18 126/52 98 Room Air 10/23/17 12:19 84 16 114/58 96 Room Air 10/23/17 10:18 36.3 95 18 124/76 94 Room Air Laboratory Results Last 24 Hours Test 10/23/17 10:48 10/23/17 16:07 White Blood Count 18.28 K/uL Red Blood Count 3.39 M/uL Hemoglobin 10.9 g/dL Hematocrit 31.8 % Mean Corpuscular Volume 93.8 fL Mean Corpuscular Hemoglobin 32.2 pg Mean Corpuscular Hemoglobin Concent 34.3 g/dl Platelet Count 329 K/uL Mean Platelet Volume 9.1 fL Neutrophils (%) (Auto) 83.5 % Lymphocytes (%) (Auto) 5.0 % Monocytes (%) (Auto) 10.6 % Eosinophils (%) (Auto) 0.2 % Basophils (%) (Auto) 0.2 % Neutrophils # (Auto) 15.28 K/uL Lymphocytes # (Auto) 0.91 K/uL Monocytes # (Auto) 1.94 K/uL Eosinophils # (Auto) 0.03 K/uL Basophils # (Auto) 0.03 K/uL RDW Standard Deviation 48.1 fL RDW Coefficient of Variation 14.0 % Immature Granulocyte % (Auto) 0.5 % Immature Granulocyte # (Auto) 0.09 K/uL Toxic Granulation 1+ Toxic Vacuolation 1+ Dohle Bodies 1+ Prothrombin Time 11.6 SECONDS Prothromb Time International Ratio 1.1 Activated Partial Thromboplast Time 32.1 SECONDS Partial Thromboplastin Ratio 1.2 Sodium Level 131 mmol/L Potassium Level 3.6 mmol/L Chloride Level 97 mmol/L Carbon Dioxide Level 25 mmol/L Anion Gap 9.0 mmol/L Blood Urea Nitrogen 29 mg/dl Creatinine 1.43 mg/dl Est Creatinine Clear Calc Drug Dose 54.2 ml/min Estimated GFR () 54.0 Estimated GFR (Non- 46.6 BUN/Creatinine Ratio 20.6 Random Glucose 109 mg/dl Calcium Level 8.4 mg/dl Bedside Glucose 98 mg/dl
[2017-10-24] MEDS ORDERED: hydrOXYzine HCL 25 MG TAB PO STA (00:09)
[2017-10-24 00:20] VITALS: O2SAT 95
[2017-10-24] MEDS: PIPERACILL/TAZOBAC IV 3.375 GM in DEXTROSE 5% 100ML 100 ML IV SCH ×3 (01:59→17:31)
[2017-10-24 03:41] VITALS: BP 106/67; PULSE 70; TEMP 36.9; O2SAT 95
--- NOTE | 2017-10-24 06:39 | Surgery Progress Note ---
Surgery Progress Note Date of Service Oct 24, 2017. Subjective feels much better Objective Vital Signs: Date Time Temp Pulse Resp B/P (MAP) Pulse Ox O2 Delivery O2 Flow Rate FiO2 10/24/17 03:41 36.9 70 18 106/67 (80) 95 Room Air 10/24/17 00:20 95 Room Air 2.0 10/23/17 23:30 36.9 65 20 116/52 (73) 94 Room Air 10/23/17 19:30 36.6 77 16 107/52 (70) 94 Room Air 10/23/17 17:16 37.2 71 20 145/70 95 Room Air 10/23/17 17:00 36.7 75 18 136/84 (101) 95 Room Air 10/23/17 16:47 95 Room Air 10/23/17 16:30 95 Room Air 10/23/17 16:30 36.5 75 16 160/58 (92) 95 Room Air 10/23/17 16:20 71 20 145/70 98 Nasal Cannula 2 10/23/17 16:10 37.2 72 20 128/90 97 Nasal Cannula 3 10/23/17 16:00 68 20 142/57 96 Oxymask 4 10/23/17 15:50 86 20 171/85 97 Oxymask 10 10/23/17 15:42 36.5 72 20 154/72 96 Oxymask 10 10/23/17 13:58 37.1 75 18 126/52 98 Room Air 10/23/17 12:19 84 16 114/58 96 Room Air 10/23/17 10:18 36.3 95 18 124/76 94 Room Air General Appearance: no apparent distress Respiratory/Chest: no respiratory distress Abdomen: soft Incision(s): drainage (expected) Laboratory Results: Results Past 24 Hours Test 10/23/17 10:48 10/23/17 16:07 Range/Units White Blood Count 18.28 4.8-10.8 K/uL Red Blood Count 3.39 4.7-6.1 M/uL Hemoglobin 10.9 14.0-18.0 g/dL Hematocrit 31.8 42-52 % Mean Corpuscular Volume 93.8 80-100 fL Mean Corpuscular Hemoglobin 32.2 25-34 pg Mean Corpuscular Hemoglobin Concent 34.3 32-36 g/dl Platelet Count 329 130-400 K/uL Mean Platelet Volume 9.1 7.4-10.4 fL Neutrophils (%) (Auto) 83.5 % Lymphocytes (%) (Auto) 5.0 % Monocytes (%) (Auto) 10.6 % Eosinophils (%) (Auto) 0.2 % Basophils (%) (Auto) 0.2 % Neutrophils # (Auto) 15.28 1.4-6.5 K/uL Lymphocytes # (Auto) 0.91 1.2-3.4 K/uL Monocytes # (Auto) 1.94 0.11-0.59 K/uL Eosinophils # (Auto) 0.03 0-0.5 K/uL Basophils # (Auto) 0.03 0-0.2 K/uL RDW Standard Deviation 48.1 36.4-46.3 fL RDW Coefficient of Variation 14.0 11.5-14.5 % Immature Granulocyte % (Auto) 0.5 % Immature Granulocyte # (Auto) 0.09 0.00-0.02 K/uL Toxic Granulation 1+ Toxic Vacuolation 1+ Dohle Bodies 1+ Prothrombin Time 11.6 9.0-12.0 SECONDS Prothromb Time International Ratio 1.1 0.9-1.1 Activated Partial Thromboplast Time 32.1 21.0-31.0 SECONDS Partial Thromboplastin Ratio 1.2 Sodium Level 131 136-145 mmol/L Potassium Level 3.6 3.5-5.1 mmol/L Chloride Level 97 98-107 mmol/L Carbon Dioxide Level 25 21-32 mmol/L Anion Gap 9.0 3-11 mmol/L Blood Urea Nitrogen 29 7-18 mg/dl Creatinine 1.43 0.60-1.40 mg/dl Est Creatinine Clear Calc Drug Dose 54.2 ml/min Estimated GFR () 54.0 Estimated GFR (Non- 46.6 BUN/Creatinine Ratio 20.6 10-20 Random Glucose 109 70-99 mg/dl Calcium Level 8.4 8.5-10.1 mg/dl Bedside Glucose 98 70-99 mg/dl Microbiology Results 10/23/17 Gram Stain, Received Pending 10/23/17 Bacterial Culture, Received Pending Assessment & Plan 10/24/17- s/p Incision/ drainage of very large ischiorectal abscess murray drain placed - will leave at least 3-4 weeks- cont IV atbx 2-3 days- cult pending- transition to po atbx at discharge d/c IV fluids
[2017-10-24 07:36] VITALS: BP 109/65; PULSE 61; TEMP 36.3; O2SAT 96
--- NOTE | 2017-10-24 08:50 | Medical Consult ---
Consultation Date of Consultation: October 23, 2017. Attending Physician: Favian Oliveira M.D. History of Present Illness Late entry for October 23. Patient was seen after his surgery. Patient has no complaints now. He feels well. Patient states that he has been having pain and discomfort for past week but could hold it off longer and knew he needed to come to ER. Patient reports that he should have come to the hospital sooner. Before the surgery, he reports having a 10/10 pain near his rectum. 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 He had about 4 surgeries and his last one to repair the fistual was done by Dr. Thayer about 3 years ago. \ Past Medical/Surgical History PAST MEDICAL HISTORY: Heart disease with 5 stents, history of PE in 2010, hypertension, hypercholesterolemia, and peripheral vascular disease. He denies diabetes or DVT. PAST SURGICAL HISTORY: Bilateral total hip replacements, cardiac stent placement, and bilateral lower extremity stents. Family History FH: gallbladder disease Heart disease Lung disease Social History Smoking Status: Current Every Day Smoker Drug Use: none Marital Status: single Housing Status: lives alone Occupation Status: retired Allergies Coded Allergies: Warfarin (Verified Allergy, Intermediate, hives, rash, 10/23/17) Statins (Verified Adverse Reaction, Intermediate, muscle weakness,pain, cramps, 10/23/17) 09/10/11: pt not willing to ever take again. Current Inpatient Medications Current Inpatient Medications Medications (Trade) Dose Ordered Sig/Felix Route Start Time Stop Time Status Last Admin Dose Admin Ioversol (Optiray 320) 111 ml UD PRN IV 10/23/17 10:45 10/27/17 10:44 Hydromorphone HCl (Dilaudid Inj) 0.5 mg Q3H PRN IV 10/23/17 13:45 11/06/17 13:44 Hydromorphone HCl (Dilaudid Inj) 1 mg Q3H PRN IV 10/23/17 13:45 11/06/17 13:44 Ondansetron HCl (Zofran Inj) 4 mg Q6H PRN IV 10/23/17 13:45 11/22/17 13:44 Piperacillin Sod/ Tazobactam Sod 3.375 gm/Dextrose 115 ml @ 28.75 mls/ hr Q8H IV 10/23/17 18:00 11/02/17 17:59 10/24/17 01:59 28.75 MLS/HR Miscellaneous Information (Consult) 1 ea UD PRN N/A 10/23/17 14:00 11/22/17 13:59 Aspirin (Ecotrin Tab) 81 mg DAILY PO 10/24/17 09:00 11/23/17 08:59 Clopidogrel Bisulfate (plAVix TAB) 75 mg QAM PO 10/24/17 09:00 11/23/17 08:59 HCTZ/ Spironolactone (Aldactazide 25/ 25 Tab) 1 tab BID17 PO 10/23/17 17:00 11/22/17 16:59 10/23/17 17:43 1 TAB Oxycodone/ Acetaminophen (Percocet 5-325mg Tab) 1 tab Q4H PRN PO 10/23/17 15:45 11/06/17 15:44 Oxycodone/ Acetaminophen (Percocet 5-325mg Tab) 2 tab Q4H PRN PO 10/23/17 15:45 11/06/17 15:44 Review of Systems Constitutional: + fever, + chills Eyes: No worsening of vision ENT: No hearing loss Respiratory: No cough, No sputum Cardiovascular: No chest pain Abdomen: No pain Musculoskeletal: No joint pain Neurologic: No memory loss Psychiatric: No depression symptoms Endocrine: No fatigue Hematologic / Lymphatic: No abnormal bleeding/bruising Integumentary: No rash Allergic / Immunologic: No environmental allergies Physical Exam Date Time Temp Pulse Resp B/P (MAP) Pulse Ox O2 Delivery O2 Flow Rate FiO2 10/24/17 07:36 36.3 61 16 109/65 (80) 96 Room Air 10/24/17 07:36 Room Air 10/24/17 03:41 36.9 70 18 106/67 (80) 95 Room Air 10/24/17 00:20 95 Room Air 2.0 10/23/17 23:30 36.9 65 20 116/52 (73) 94 Room Air 10/23/17 19:30 36.6 77 16 107/52 (70) 94 Room Air 10/23/17 17:16 37.2 71 20 145/70 95 Room Air 10/23/17 17:00 36.7 75 18 136/84 (101) 95 Room Air 10/23/17 16:47 95 Room Air 10/23/17 16:30 95 Room Air 10/23/17 16:30 36.5 75 16 160/58 (92) 95 Room Air 10/23/17 16:20 71 20 145/70 98 Nasal Cannula 2 10/23/17 16:10 37.2 72 20 128/90 97 Nasal Cannula 3 10/23/17 16:00 68 20 142/57 96 Oxymask 4 10/23/17 15:50 86 20 171/85 97 Oxymask 10 10/23/17 15:42 36.5 72 20 154/72 96 Oxymask 10 10/23/17 13:58 37.1 75 18 126/52 98 Room Air 10/23/17 12:19 84 16 114/58 96 Room Air 10/23/17 10:18 36.3 95 18 124/76 94 Room Air General Appearance: WD/WN, no apparent distress Head: normocephalic Eyes: normal inspection ENT: normal ENT inspection Neck: supple, no adenopathy Respiratory/Chest: chest non-tender, lungs clear Cardiovascular: regular rate, rhythm, no edema Abdomen/GI: normal bowel sounds, non tender, soft Back: normal inspection Neurologic/Psych: alert, oriented x 3 Skin: normal color Lymphatic: no adenopathy Laboratory Results Last 24 Hours Test 10/23/17 10:48 10/23/17 16:07 White Blood Count 18.28 K/uL Red Blood Count 3.39 M/uL Hemoglobin 10.9 g/dL Hematocrit 31.8 % Mean Corpuscular Volume 93.8 fL Mean Corpuscular Hemoglobin 32.2 pg Mean Corpuscular Hemoglobin Concent 34.3 g/dl Platelet Count 329 K/uL Mean Platelet Volume 9.1 fL Neutrophils (%) (Auto) 83.5 % Lymphocytes (%) (Auto) 5.0 % Monocytes (%) (Auto) 10.6 % Eosinophils (%) (Auto) 0.2 % Basophils (%) (Auto) 0.2 % Neutrophils # (Auto) 15.28 K/uL Lymphocytes # (Auto) 0.91 K/uL Monocytes # (Auto) 1.94 K/uL Eosinophils # (Auto) 0.03 K/uL Basophils # (Auto) 0.03 K/uL RDW Standard Deviation 48.1 fL RDW Coefficient of Variation 14.0 % Immature Granulocyte % (Auto) 0.5 % Immature Granulocyte # (Auto) 0.09 K/uL Toxic Granulation 1+ Toxic Vacuolation 1+ Dohle Bodies 1+ Prothrombin Time 11.6 SECONDS Prothromb Time International Ratio 1.1 Activated Partial Thromboplast Time 32.1 SECONDS Partial Thromboplastin Ratio 1.2 Sodium Level 131 mmol/L Potassium Level 3.6 mmol/L Chloride Level 97 mmol/L Carbon Dioxide Level 25 mmol/L Anion Gap 9.0 mmol/L Blood Urea Nitrogen 29 mg/dl Creatinine 1.43 mg/dl Est Creatinine Clear Calc Drug Dose 54.2 ml/min Estimated GFR () 54.0 Estimated GFR (Non- 46.6 BUN/Creatinine Ratio 20.6 Random Glucose 109 mg/dl Calcium Level 8.4 mg/dl Bedside Glucose 98 mg/dl CT SCAN OF THE PELVIS WITH IV CONTRAST CLINICAL HISTORY: Perianal pain. Purulent drainage. COMPARISON STUDY: Pelvic CT dated 04/10/2012. TECHNIQUE: Following the IV administration of 117 cc of Optiray 320, CT scan of the pelvis is performed from the pelvic inlet to the proximal femora. Images are reviewed in the axial, sagittal, and coronal planes. IV contrast was administered without complication. A dose lowering technique was utilized adhering to the principles of ALARA. Evaluation of the pelvis is degraded by streak artifact from bilateral hip arthroplasties. CT DOSE: 934.11 mGy.cm FINDINGS: There is a large complex gas and fluid containing collection the right perianal soft tissues which extends from the levator musculature inferiorly along the median gluteal crease. This measures approximately 10 x 6 x 3 cm and there is surrounding inflammatory change. The appearance is consistent with a perianal abscess. This approaches the inferior median gluteal crease, and a fistulous tract is not excluded. The rectum and perirectal soft tissues are normal in appearance. The visualized loops of small bowel and colon in the pelvis are normal in caliber. The bladder is decompressed and not well evaluated. The prostate gland appears diminutive and heterogeneous. No pelvic sidewall or inguinal lymphadenopathy is seen. There is advanced atherosclerotic calcification of the distal abdominal aorta. An aneurysm of the distal abdominal aorta measures up to 4.0 cm. There is advanced atherosclerotic calcification of the iliac and common femoral arteries. Stents are present in the right common iliac artery as well as in the right superficial femoral artery. These are likely patent but difficult to assess without angiographic technique. The skeletal structures are osteopenic. Bilateral hip arthroplasties are in place. No lytic or blastic lesion is identified. Lumbosacral spondylosis is partially imaged. Postlaminectomy change is seen in the lower lumbar spine. IMPRESSION: 1. There is a large right-sided perianal abscess as detailed above. A fistulous tract to the median gluteal crease is not excluded. 2. 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 This has increased in size as compared to 2012. 3. Additional findings as above. Assessment & Plan Perirectal abscess S/P surgery On zosyn will monitor CBC will likely require outpatient antibiotics awaiting cultures HTN continue home meds HCTZ spironolactone peripheral vascular disease cont. home meds cont. asa, plavix
[2017-10-24] MEDS: ASPIRIN 81 MG ECTAB PO SCH (09:10)
[2017-10-24] MEDS: CLOPIDOGREL BISULFATE 75 MG TAB PO SCH (09:10)
[2017-10-24] MEDS: SPIRONOLACTONE/HCTZ 25-25 PO SCH ×2 (09:10→17:27)
[2017-10-24 09:12] LABS: BASO % 0.2 %; BASO ABS # 0.03 K/uL (0-0.2); EOS ABS # 0.26 K/uL (0-0.5); HEMATOCRIT 29.8 % (42-52); HEMOGLOBIN 10.3 g/dL (14.0-18.0); IG# 0.04 K/uL (0.00-0.02); LYMPH % 11.8 %; LYMPH ABS # 1.56 K/uL (1.2-3.4); MEAN CELL VOLUME 93.1 fL (80-100); MEAN CORPUSCULAR HEMOGLOBIN 32.2 pg (25-34); MEAN CORPUSCULAR HGB CONC 34.6 g/dl (32-36); MONO % 6.4 %; MONO ABS # 0.84 K/uL (0.11-0.59); NEUT % 79.3 %; NEUT ABS # 10.47 K/uL (1.4-6.5); PLATELET COUNT 312 K/uL (130-400); RED CELL DISTRIBUTION WIDTH CV 13.9 % (11.5-14.5); RED CELL DISTRIBUTION WIDTH SD 47.4 fL (36.4-46.3)
--- NOTE | 2017-10-24 09:36 | ORTHOPEDIC CONSULTATION REPORT ---
DATE OF CONSULTATION: 10/24/2017 CHIEF COMPLAINT: Right lower leg erythema. HISTORY OF PRESENT ILLNESS: The patient is a 76-year-old male approximately 2-1/2 weeks status post right total knee arthroplasty. He actually presented to the Emergency Department with perirectal pain. He was seen by general surgery and had an I&D of a perirectal abscess performed by Dr. Oliveira yesterday. An orthopedics consult was asked to evaluate his right knee and lower leg. Currently, the patient is resting comfortably in bed. He states his knee feels great. On examination, he has Steri-Strips in place across his knee incision. There is no obvious erythema about the knee. He does not have a significant intra-articular effusion. He can flex and extend the knee without significant pain. There is some swelling, erythema, and ecchymosis in the lower leg. This is very similar to what was seen in our office earlier this week when he was seen for his initial postop evaluation. I do recall that his surgery was not performed under a tourniquet due to stent in his lower leg and the patient did have more postoperative ecchymosis than normal. ASSESSMENT: Right lower leg swelling, erythema, and ecchymosis, 2-1/2 weeks status post right total knee arthroplasty. PLAN: The above discussed with the patient. At this point, his knee appears benign; however, there is certainly a risk given his recent perirectal abscess. He is on IV Zosyn at this time. It sounds like he is going to be on some IV antibiotics for a few days and then, possibly some oral antibiotics upon discharge. This likely will be appropriate for his lower extremity as well. The above will be discussed with Dr. Gordon and he will evaluate the patient later today as well.
[2017-10-24 09:39] LABS: CALCIUM 7.9 mg/dl (8.5-10.1); CREATININE 1.33 mg/dl (0.60-1.40); POTASSIUM 3.5 mmol/L (3.5-5.1)
[2017-10-24 16:00] VITALS: BP 116/82; PULSE 58; TEMP 36.3; O2SAT 97
--- NOTE | 2017-10-24 17:15 | Progress Note ---
Subjective Date of Service: Oct 24, 2017. Subjective Pt evaluation today including: conversation w/ patient Patient is resting comfortably. Patient states he is feeling well. Problem List Medical Problems: (1) Abdominal aortic aneurysm Status: Acute (2) Perianal abscess Status: Acute (3) Pneumonia Status: Acute Review of Systems Constitutional: No fever Eyes: No worsening of vision ENT: No hearing loss Respiratory: No cough Cardiac: No chest pain Abdomen: No pain Male : No dysuria Neurologic: No memory loss Psychiatric: No depression symptoms Heme: No abnormal bleeding/bruising Endo: No fatigue Skin: No rash All Other Systems: Reviewed and Negative Medications Current Inpatient Medications Medications (Trade) Dose Ordered Sig/Felix Route Start Time Stop Time Status Last Admin Dose Admin Ioversol (Optiray 320) 111 ml UD PRN IV 10/23/17 10:45 10/27/17 10:44 Hydromorphone HCl (Dilaudid Inj) 0.5 mg Q3H PRN IV 10/23/17 13:45 11/06/17 13:44 Hydromorphone HCl (Dilaudid Inj) 1 mg Q3H PRN IV 10/23/17 13:45 11/06/17 13:44 Ondansetron HCl (Zofran Inj) 4 mg Q6H PRN IV 10/23/17 13:45 11/22/17 13:44 Piperacillin Sod/ Tazobactam Sod 3.375 gm/Dextrose 115 ml @ 28.75 mls/ hr Q8H IV 10/23/17 18:00 11/02/17 17:59 10/25/17 02:26 28.75 MLS/HR Miscellaneous Information (Consult) 1 ea UD PRN N/A 10/23/17 14:00 11/22/17 13:59 Aspirin (Ecotrin Tab) 81 mg DAILY PO 10/24/17 09:00 11/23/17 08:59 10/24/17 09:10 81 MG Clopidogrel Bisulfate (plAVix TAB) 75 mg QAM PO 10/24/17 09:00 11/23/17 08:59 10/24/17 09:10 75 MG HCTZ/ Spironolactone (Aldactazide 25/ 25 Tab) 1 tab BID17 PO 10/23/17 17:00 11/22/17 16:59 10/24/17 17:27 1 TAB Oxycodone/ Acetaminophen (Percocet 5-325mg Tab) 1 tab Q4H PRN PO 10/23/17 15:45 11/06/17 15:44 Oxycodone/ Acetaminophen (Percocet 5-325mg Tab) 2 tab Q4H PRN PO 10/23/17 15:45 11/06/17 15:44 Hydroxyzine HCl (Vistaril Tab) 25 mg HS PRN PO 10/25/17 01:00 11/24/17 00:59 10/25/17 01:06 25 MG Objective Vital Signs Date Time Temp Pulse Resp B/P (MAP) Pulse Ox O2 Delivery O2 Flow Rate FiO2 10/24/17 16:00 36.3 58 18 116/82 (93) 97 Room Air 10/24/17 07:36 36.3 61 16 109/65 (80) 96 Room Air 10/24/17 07:36 Room Air 10/24/17 03:41 36.9 70 18 106/67 (80) 95 Room Air 10/24/17 00:20 95 Room Air 2.0 10/23/17 23:30 36.9 65 20 116/52 (73) 94 Room Air 10/23/17 19:30 36.6 77 16 107/52 (70) 94 Room Air 10/23/17 17:16 37.2 71 20 145/70 95 Room Air Physical Exam Comments: General Appearance: WD/WN, no apparent distress Head: normocephalic Eyes: normal inspection ENT: normal ENT inspection Neck: supple, no adenopathy Respiratory/Chest: chest non-tender, lungs clear Cardiovascular: regular rate, rhythm, no edema Abdomen/GI: normal bowel sounds, non tender, soft Back: normal inspection Neurologic/Psych: alert, oriented x 3 Skin: normal color Lymphatic: no adenopathy Laboratory Results Last 24 Hours Test 10/24/17 08:55 White Blood Count 13.20 K/uL Red Blood Count 3.20 M/uL Hemoglobin 10.3 g/dL Hematocrit 29.8 % Mean Corpuscular Volume 93.1 fL Mean Corpuscular Hemoglobin 32.2 pg Mean Corpuscular Hemoglobin Concent 34.6 g/dl Platelet Count 312 K/uL Mean Platelet Volume 9.0 fL Neutrophils (%) (Auto) 79.3 % Lymphocytes (%) (Auto) 11.8 % Monocytes (%) (Auto) 6.4 % Eosinophils (%) (Auto) 2.0 % Basophils (%) (Auto) 0.2 % Neutrophils # (Auto) 10.47 K/uL Lymphocytes # (Auto) 1.56 K/uL Monocytes # (Auto) 0.84 K/uL Eosinophils # (Auto) 0.26 K/uL Basophils # (Auto) 0.03 K/uL RDW Standard Deviation 47.4 fL RDW Coefficient of Variation 13.9 % Immature Granulocyte % (Auto) 0.3 % Immature Granulocyte # (Auto) 0.04 K/uL Sodium Level 134 mmol/L Potassium Level 3.5 mmol/L Chloride Level 101 mmol/L Carbon Dioxide Level 27 mmol/L Anion Gap 6.0 mmol/L Blood Urea Nitrogen 30 mg/dl Creatinine 1.33 mg/dl Est Creatinine Clear Calc Drug Dose 58.7 ml/min Estimated GFR () 58.9 Estimated GFR (Non- 50.8 BUN/Creatinine Ratio 22.6 Random Glucose 120 mg/dl Calcium Level 7.9 mg/dl Assessment and Plan Perirectal abscess S/P surgery On zosyn will monitor CBC WBC improved from 18 to 13 will likely require outpatient antibiotics awaiting cultures HTN continue home meds BP at goal. HCTZ spironolactone peripheral vascular disease cont. home meds cont. asa, plavix
[2017-10-24 23:05] VITALS: BP 107/61; PULSE 61; TEMP 36.7; O2SAT 97
[2017-10-25] VITALS (9 sets, daily range): BP systolic 127–136; BP diastolic 57–74; PULSE 62–70; TEMP 36.3–36.7; O2SAT 91–98
[2017-10-25] MEDS ORDERED: NURSING VERBAL MED ORDER ONE (00:30)
[2017-10-25] MEDS: hydrOXYzine HCL 25 MG TAB PO PRN (01:06)
[2017-10-25] MEDS: PIPERACILL/TAZOBAC IV 3.375 GM in DEXTROSE 5% 100ML 100 ML IV SCH ×2 (02:26→09:19)
--- NOTE | 2017-10-25 07:57 | Orthopedic Progress Note ---
Orthopedic Progress Note Date of Service Oct 25, 2017. Subjective Reports: feeling well, Denies: complaints Additional Notes: states that his right knee feels good and is working well Objective calves soft nontender, N/V intact Wound healing well. No erythema. Doing well with ROM. Date Time Temp Pulse Resp B/P (MAP) Pulse Ox O2 Delivery O2 Flow Rate FiO2 10/25/17 07:04 36.3 67 20 130/57 (81) 91 Room Air 10/25/17 00:05 95 Room Air 2.0 10/24/17 23:05 36.7 61 18 107/61 (76) 97 Room Air 10/24/17 16:00 36.3 58 18 116/82 (93) 97 Room Air 10/24/17 15:50 Room Air Laboratory Results 24 Hours: Test 10/24/17 08:55 10/25/17 07:39 White Blood Count 13.20 K/uL Red Blood Count 3.20 M/uL Hemoglobin 10.3 g/dL Hematocrit 29.8 % Mean Corpuscular Volume 93.1 fL Mean Corpuscular Hemoglobin 32.2 pg Mean Corpuscular Hemoglobin Concent 34.6 g/dl Platelet Count 312 K/uL Mean Platelet Volume 9.0 fL Neutrophils (%) (Auto) 79.3 % Lymphocytes (%) (Auto) 11.8 % Monocytes (%) (Auto) 6.4 % Eosinophils (%) (Auto) 2.0 % Basophils (%) (Auto) 0.2 % Neutrophils # (Auto) 10.47 K/uL Lymphocytes # (Auto) 1.56 K/uL Monocytes # (Auto) 0.84 K/uL Eosinophils # (Auto) 0.26 K/uL Basophils # (Auto) 0.03 K/uL Assessment & Plan Assessment: s/p Right TKA 10/07/17 I&D Perirectal Abscess this visit. Plan: continue PT for right TKA continue IV antibx plan for outpatient antibx
[2017-10-25 08:12] LABS: HEMATOCRIT 32.4 % (42-52); HEMOGLOBIN 10.9 g/dL (14.0-18.0); MEAN CELL VOLUME 93.1 fL (80-100); MEAN CORPUSCULAR HEMOGLOBIN 31.3 pg (25-34); MEAN CORPUSCULAR HGB CONC 33.6 g/dl (32-36); PLATELET COUNT 376 K/uL (130-400); RED CELL DISTRIBUTION WIDTH CV 14.2 % (11.5-14.5); RED CELL DISTRIBUTION WIDTH SD 48.2 fL (36.4-46.3); WHITE BLOOD COUNT 8.56 K/uL (4.8-10.8)
[2017-10-25 08:32] LABS: CALCIUM 8.7 mg/dl (8.5-10.1); CREATININE 1.27 mg/dl (0.60-1.40); POTASSIUM 3.7 mmol/L (3.5-5.1)
[2017-10-25] MEDS: SPIRONOLACTONE/HCTZ 25-25 PO SCH ×2 (09:14→16:20)
[2017-10-25] MEDS: ASPIRIN 81 MG ECTAB PO SCH (09:15)
[2017-10-25] MEDS: CLOPIDOGREL BISULFATE 75 MG TAB PO SCH (09:15)
--- NOTE | 2017-10-25 12:39 | Hospitalist Progress Note ---
Hospitalist Progress Note Date of Service Oct 25, 2017. Subjective Pt evaluation today including: conversation w/ patient, conversation w/ family (daughter at bedside), physical exam, chart review, lab review, review of inpatient medication list Pain: 2/10 dull rectal pain at surgical site PO Intake: Tolerating PO diet Voiding: no voiding problems The patient reports feeling well. He states he has only a mild 2/10 dull pain at the site of his I&D. He reports having a large BM this morning without difficulty. He does report some wheezing. He is eating, urinating, and passing gas without issue postop. The patient denies fevers, chills, sweats, chest pain, palpitations, claudication, cough, shortness of breath, nausea, vomiting, abdominal pain, dysuria, hematuria, urinary retention, paralysis, weakness, numbness and tingling. Additional Comments: See HPI for pertinent positives and negatives. All other systems reviewed and negative. Objective Vital Signs Date Time Temp Pulse Resp B/P (MAP) Pulse Ox O2 Delivery O2 Flow Rate FiO2 10/25/17 11:44 64 18 97 Room Air 10/25/17 09:13 94 Room Air 10/25/17 08:00 Room Air 10/25/17 07:04 36.3 67 20 130/57 (81) 91 Room Air 10/25/17 00:05 95 Room Air 2.0 10/24/17 23:05 36.7 61 18 107/61 (76) 97 Room Air 10/24/17 16:00 36.3 58 18 116/82 (93) 97 Room Air 10/24/17 15:50 Room Air Physical Exam Notes: General appearance: +Obese. Well-developed, well-nourished, no apparent distress Head: Normocephalic, atraumatic Eyes: Normal inspection, PERRL, EOMI ENT: Normal ENT inspection, hearing grossly normal, pharynx normal Neck: Supple, no JVD, trachea midline Respiratory/Chest: +Wheezing throughout, most marked in bases. Normal breath sounds, no respiratory distress Cardiovascular: Regular rate & rhythm, no gallop, no murmur Abdomen/GI: Normal bowel sounds, non-tender, soft Extremities/Musculoskeletal: +Incision s/p right TKA healing. Right foot 3+ pitting edema, 2+ pitting edema right lower leg. 1+ pitting LLE. No erythema/ warmth. Chronic venous changes. No calf tenderness Neurological/Psych: Alert, normal mood/affect, oriented x 3 Skin: Normal color, warm/dry, no rash Laboratory Results Last 24 Hours Test 10/25/17 08:00 White Blood Count 8.56 K/uL Red Blood Count 3.48 M/uL Hemoglobin 10.9 g/dL Hematocrit 32.4 % Mean Corpuscular Volume 93.1 fL Mean Corpuscular Hemoglobin 31.3 pg Mean Corpuscular Hemoglobin Concent 33.6 g/dl RDW Standard Deviation 48.2 fL RDW Coefficient of Variation 14.2 % Platelet Count 376 K/uL Mean Platelet Volume 9.0 fL Sodium Level 136 mmol/L Potassium Level 3.7 mmol/L Chloride Level 101 mmol/L Carbon Dioxide Level 24 mmol/L Anion Gap 11.0 mmol/L Blood Urea Nitrogen 28 mg/dl Creatinine 1.27 mg/dl Est Creatinine Clear Calc Drug Dose 61.5 ml/min Estimated GFR () 62.3 Estimated GFR (Non- 53.8 BUN/Creatinine Ratio 22.1 Random Glucose 105 mg/dl Calcium Level 8.7 mg/dl Assessment and Plan 76 y/o male with a history of CAD s/p stents, HTN, HLD, PVD and h/o PE who presents with perirectal abscess. Perirectal abscess s/p I&D on 10/23--stable -Pain well managed -Leukocytosis resolved. WBC 8.56 on 10/25, down form 13.20 -Wound culture from abscess positive for pansensitive beta hemolytic strep group F -De-escalate IV abx from Zosyn to Rocephin per pharmacy recommendations -General surgery: [place] drain x 3-4 weeks. Continue IV abx 2-3 days, then d/ c on PO abx. CAD, HTN, HLD, PVD--stable -Continue ASA, Plavix, HCTZ/spironolactone 25/25 mg PO qd Wheezing on exam--per daughter, pt is supposed to be on an inhaler at home but is non-complaint. She thinks he was prescribed Combivent -DuoNebs QIDR and q2h prn SOB/wheezing Recent right TKA -Orthopedics following -PT/OT to continue to rehab knee Pt. is stable from a medical standpoint, we will sign off. Please feel free to recall prn issues.
[2017-10-25] MEDS: ALBUT/IPRATROP 3MG/0.5MG NEB 3 ML VIAL INH SCH ×3 (14:59→19:57)
[2017-10-25] MEDS ORDERED: CEFTRIAXONE SOD INJ 1 GM in DEXTROSE 5% ADD-VANTAGE 50ML 50 ML IV SCH (16:00)
--- NOTE | 2017-10-25 16:28 | Surgery Progress Note ---
Surgery Progress Note Date of Service Oct 25, 2017. Subjective doing ok- some fatigue- 2 recent operations Objective Vital Signs: Date Time Temp Pulse Resp B/P (MAP) Pulse Ox O2 Delivery O2 Flow Rate FiO2 10/25/17 15:14 36.5 69 20 132/64 (86) 93 Room Air 10/25/17 14:59 62 18 98 Room Air 10/25/17 12:39 36.4 69 18 136/74 (94) 95 Room Air 10/25/17 11:44 64 18 97 Room Air 10/25/17 09:13 94 Room Air 10/25/17 08:00 Room Air 10/25/17 07:04 36.3 67 20 130/57 (81) 91 Room Air 10/25/17 00:05 95 Room Air 2.0 10/24/17 23:05 36.7 61 18 107/61 (76) 97 Room Air General Appearance: no apparent distress Respiratory/Chest: no respiratory distress Incision(s): drainage Laboratory Results: Results Past 24 Hours Test 10/25/17 08:00 Range/Units White Blood Count 8.56 4.8-10.8 K/uL Red Blood Count 3.48 4.7-6.1 M/uL Hemoglobin 10.9 14.0-18.0 g/dL Hematocrit 32.4 42-52 % Mean Corpuscular Volume 93.1 80-100 fL Mean Corpuscular Hemoglobin 31.3 25-34 pg Mean Corpuscular Hemoglobin Concent 33.6 32-36 g/dl RDW Standard Deviation 48.2 36.4-46.3 fL RDW Coefficient of Variation 14.2 11.5-14.5 % Platelet Count 376 130-400 K/uL Mean Platelet Volume 9.0 7.4-10.4 fL Sodium Level 136 136-145 mmol/L Potassium Level 3.7 3.5-5.1 mmol/L Chloride Level 101 98-107 mmol/L Carbon Dioxide Level 24 21-32 mmol/L Anion Gap 11.0 3-11 mmol/L Blood Urea Nitrogen 28 7-18 mg/dl Creatinine 1.27 0.60-1.40 mg/dl Est Creatinine Clear Calc Drug Dose 61.5 ml/min Estimated GFR () 62.3 Estimated GFR (Non- 53.8 BUN/Creatinine Ratio 22.1 10-20 Random Glucose 105 70-99 mg/dl Calcium Level 8.7 8.5-10.1 mg/dl Assessment & Plan 10/25/17- doing ok- "worn out" from recent operations cont IV atbx- may need 2 more days in hospital 10/24/17- s/p Incision/ drainage of very large ischiorectal abscess murray drain placed - will leave at least 3-4 weeks- cont IV atbx 2-3 days- cult pending- transition to po atbx at discharge d/c IV fluids 10/24/17- s/p Incision/ drainage of very large ischiorectal abscess murray drain placed - will leave at least 3-4 weeks- cont IV atbx 2-3 days- cult pending- transition to po atbx at discharge d/c IV fluids
[2017-10-26] MEDS: hydrOXYzine HCL 25 MG TAB PO PRN (00:17)
[2017-10-26] MEDS ORDERED: AMOX875T PO (06:02)
[2017-10-26] MEDS ORDERED: OXYC-57 PO (06:02)
[2017-10-26 06:09] LABS: HEMATOCRIT 30.7 % (42-52); HEMOGLOBIN 10.4 g/dL (14.0-18.0); MEAN CELL VOLUME 93.9 fL (80-100); MEAN CORPUSCULAR HEMOGLOBIN 31.8 pg (25-34); MEAN CORPUSCULAR HGB CONC 33.9 g/dl (32-36); MEAN PLATELET VOLUME 8.8 fL (7.4-10.4); PLATELET COUNT 392 K/uL (130-400); RED CELL DISTRIBUTION WIDTH CV 14.3 % (11.5-14.5); RED CELL DISTRIBUTION WIDTH SD 48.9 fL (36.4-46.3); WHITE BLOOD COUNT 8.35 K/uL (4.8-10.8)
--- NOTE | 2017-10-26 06:26 | Surgery Progress Note ---
Surgery Progress Note Date of Service Oct 26, 2017. Subjective doing well- wants to go home pain controlled- on IV atbx Objective Vital Signs: Date Time Temp Pulse Resp B/P (MAP) Pulse Ox O2 Delivery O2 Flow Rate FiO2 10/25/17 23:21 36.7 70 16 127/66 (86) 98 Room Air 10/25/17 19:58 70 18 97 Room Air 10/25/17 19:45 Room Air 10/25/17 15:14 36.5 69 20 132/64 (86) 93 Room Air 10/25/17 14:59 62 18 98 Room Air 10/25/17 12:39 36.4 69 18 136/74 (94) 95 Room Air 10/25/17 11:44 64 18 97 Room Air 10/25/17 09:13 94 Room Air 10/25/17 08:00 Room Air 10/25/17 07:04 36.3 67 20 130/57 (81) 91 Room Air General Appearance: no apparent distress Respiratory/Chest: no respiratory distress Incision(s): drainage (expected) Laboratory Results: Results Past 24 Hours Test 10/25/17 08:00 10/26/17 05:56 Range/Units White Blood Count 8.56 8.35 4.8-10.8 K/uL Red Blood Count 3.48 3.27 4.7-6.1 M/uL Hemoglobin 10.9 10.4 14.0-18.0 g/dL Hematocrit 32.4 30.7 42-52 % Mean Corpuscular Volume 93.1 93.9 80-100 fL Mean Corpuscular Hemoglobin 31.3 31.8 25-34 pg Mean Corpuscular Hemoglobin Concent 33.6 33.9 32-36 g/dl RDW Standard Deviation 48.2 48.9 36.4-46.3 fL RDW Coefficient of Variation 14.2 14.3 11.5-14.5 % Platelet Count 376 392 130-400 K/uL Mean Platelet Volume 9.0 8.8 7.4-10.4 fL Sodium Level 136 136-145 mmol/L Potassium Level 3.7 3.5-5.1 mmol/L Chloride Level 101 98-107 mmol/L Carbon Dioxide Level 24 21-32 mmol/L Anion Gap 11.0 3-11 mmol/L Blood Urea Nitrogen 28 7-18 mg/dl Creatinine 1.27 0.60-1.40 mg/dl Est Creatinine Clear Calc Drug Dose 61.5 ml/min Estimated GFR () 62.3 Estimated GFR (Non- 53.8 BUN/Creatinine Ratio 22.1 10-20 Random Glucose 105 70-99 mg/dl Calcium Level 8.7 8.5-10.1 mg/dl Assessment & Plan 10/26/17- doing well- can go home from surgical stdpt Augmentin script in chart , f/u surgical office- may have pt see [facility] for supralevator fistula or [facility] 10/25/17- doing ok- "worn out" from recent operations cont IV atbx- may need 2 more days in hospital 10/24/17- s/p Incision/ drainage of very large ischiorectal abscess murray drain placed - will leave at least 3-4 weeks- cont IV atbx 2-3 days- cult pending- transition to po atbx at discharge d/c IV fluids 10/25/17- doing ok- "worn out" from recent operations cont IV atbx- may need 2 more days in hospital 10/24/17- s/p Incision/ drainage of very large ischiorectal abscess murray drain placed - will leave at least 3-4 weeks- cont IV atbx 2-3 days- cult pending- transition to po atbx at discharge d/c IV fluids
--- NOTE | 2017-10-26 06:29 | Discharge Instructions ---
Discharge Instructions Date of Service Oct 26, 2017. Admission Reason for Admission: Perirectal Abscess Discharge Discharge Diagnosis / Problem: perirectal abscess and fistula Discharge Goals Goal(s): Decrease discomfort, Improve function, Improve disease control Activity Recommendations Activity Limitations: as noted below Lifting Limitations: gradually increase as tolerated Exercise/Sports Limitations: until after follow-up appointment May Resume Sexual Activity: when tolerated Shower/Bathe: no limitations Driving or Machine Use: resume 1 day after discharge . Instructions / Follow-Up Instructions / Follow-Up SPECIAL CARE INSTRUCTIONS: * Cover incisions and change daily for comfort/drainage. Will need pad for several weeks * May use ibuprofen for pain as tolerated. * Expect some swelling and bruising. Call your doctor if: * Temperature above 101 degrees * Pain not relieved by pain medicine ordered * There is increased drainage or redness from any incision * You have any unanswered questions or concerns [phone]. FOLLOW UP VISIT: If not already scheduled, please call the office for a follow-up visit. for next week- check up OFFICE PHONE NUMBER: Dr. Oliveira Office Current Hospital Diet Patient's current hospital diet: Regular Diet Discharge Diet Recommended Diet: Regular Diet Procedures Procedures Performed: Incision and Drainage of [place]-rectal abscess Pending Studies Studies pending at discharge: no Laboratory Results Hemoglobin A1c Test 09/09/17 12:13 Range/Units Estimated Average Glucose 126 mg/dl Hemoglobin A1c 6.0 H 4.5-5.6 % Medical Emergencies . Who to Call and When: Medical Emergencies: If at any time you feel your situation is an emergency, please call 911 immediately. . Non-Emergent Contact Non-Emergency issues call your: Primary Care Provider, Surgeon . "Provider Documentation" section prepared by Favian Oliveira. .
[2017-10-26 06:42] LABS: CALCIUM 8.3 mg/dl (8.5-10.1); CREATININE 1.1 mg/dl (0.60-1.40); POTASSIUM 3.8 mmol/L (3.5-5.1)
[2017-10-26 07:31] VITALS: BP 129/63; PULSE 64; TEMP 36.6; O2SAT 93
[2017-10-26] MEDS: SPIRONOLACTONE/HCTZ 25-25 PO SCH (08:44)
[2017-10-26] MEDS: CLOPIDOGREL BISULFATE 75 MG TAB PO SCH (08:44)
[2017-10-26] MEDS: ASPIRIN 81 MG ECTAB PO SCH (08:44)
[2017-10-26 10:01] VITALS: BP 129/63; PULSE 64; TEMP 36.6; O2SAT 93
[2017-10-26] MEDS: ALBUT/IPRATROP 3MG/0.5MG NEB 3 ML VIAL INH SCH (11:12)
[2017-10-26 11:33] VITALS: BP 126/86; PULSE 60; O2SAT 99
--- NOTE | 2017-11-01 08:58 | DISCHARGE SUMMARY ---
DIAGNOSIS: Perirectal abscess. PROCEDURES: Patient underwent operative incision and drainage of perirectal abscess. HISTORY OF PRESENT ILLNESS: Patient is a 76-year-old male presenting to the Emergency Room with a very large perirectal abscess. He has a known history of fistula formation and abscess. HOSPITAL COURSE: Patient was taken to the operating room where he underwent drainage of the abscess with drain placement. Postoperatively, he did relatively well, progressing slowly over 2-3 days on IV antibiotics. He was felt stable for discharge on 10/26/2017 on oral antibiotics with the drain in place to home to be followed in the surgical clinic.
--- NOTE | 2017-11-01 09:04 | EDITING REQUIRED CODING QUERY ---
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 Please assist us with the question(s) below: Please place an X within the parenthesis (x). If other, please document: BMI ( ) was documented in this record for this patient. If the BMI is significant, please check the box that provides a more specific associated diagnosis: ( ) Overweight/Obese ( ) Obesity ( ) Morbid obesity ( ) Obesity Hypoventilation Syndrome (OHS) ( ) [place]athy weight, not significant ( ) Underweight/Thin ( ) Other, please specify Thank you Mark Murguia
== END 2017-10-26 12:16 | disposition home health service (06) | DRG 395 ==
LOC: C.EDB 10:12 → C.MSW 13:37 → ENRESERV 14:12
PROVIDERS: ADMIT Surgery; ATTEND Surgery
PROC: 0W9M00Z Drainage of Male Perineum with Drainage Device, Open Approach (ICD-10-PCS; principal; 2017-10-23 14:00)
DX: K61.0 Anal abscess (principal); I25.10 Atherosclerotic heart disease of native coronary artery without angina pectoris; E78.5 Hyperlipidemia, unspecified; I10 Essential (primary) hypertension; F17.200 Nicotine dependence, unspecified, uncomplicated; I73.9 Peripheral vascular disease, unspecified; I71.4 Abdominal aortic aneurysm, without rupture; E11.9 Type 2 diabetes mellitus without complications; Z88.8 Allergy status to other drugs, medicaments and biological substances; Z79.82 Long term (current) use of aspirin; Z96.651 Presence of right artificial knee joint

== ENCOUNTER → 2018-03-02 | Outpatient (CLI) | payer OTHER, MEDICARE ==
[~2018-03-02] MED LIST changes: +OXYC-57 PO; +OXYC-609 PO; -RXC5 PO
[2018-03-02 12:52] LABS: BASO % 0.7 %; BASO ABS # 0.05 K/uL (0-0.2); EOS % 5.9 %; EOS ABS # 0.45 K/uL (0-0.5); HEMOGLOBIN 14.5 g/dL (14.0-18.0); IG# 0.02 K/uL (0.00-0.02); LYMPH % 26.2 %; LYMPH ABS # 1.99 K/uL (1.2-3.4); MEAN CELL VOLUME 89.8 fL (80-100); MEAN CORPUSCULAR HEMOGLOBIN 29.6 pg (25-34); MEAN PLATELET VOLUME 10.8 fL (7.4-10.4); MONO % 10.5 %; NEUT % 56.4 %; NEUT ABS # 4.28 K/uL (1.4-6.5); PLATELET COUNT 267 K/uL (130-400); RED CELL DISTRIBUTION WIDTH CV 16.1 % (11.5-14.5); RED CELL DISTRIBUTION WIDTH SD 51.7 fL (36.4-46.3); WHITE BLOOD COUNT 7.59 K/uL (4.8-10.8)
[2018-03-02 13:33] LABS: BLOOD UREA NITROGEN 25 mg/dl (7-18); CALCIUM 8.8 mg/dl (8.5-10.1); CARBON DIOXIDE 26 mmol/L (21-32); CREATININE 1.37 mg/dl (0.60-1.40); GLUCOSE 101 mg/dl (70-99); POTASSIUM 4.1 mmol/L (3.5-5.1); SODIUM 138 mmol/L (136-145)
== END | disposition home or self-care (01) ==
LOC: C.LABPBG 08:45
PROVIDERS: ATTEND Family Medicine
DX: N18.3 Chronic kidney disease, stage 3 (moderate) (principal); E78.5 Hyperlipidemia, unspecified; R53.83 Other fatigue; I12.9 Hypertensive chronic kidney disease with stage 1 through stage 4 chronic kidney disease, or unspecified chronic kidney disease; D64.9 Anemia, unspecified; Z86.79 Personal history of other diseases of the circulatory system

== ENCOUNTER 2020-02-23 18:18 | Inpatient (IN) ==
--- NOTE | 2020-02-23 18:30 | Emergency Department Note ---
Impression & Plan Acute exacerbation of CHF (congestive heart failure), Dyspnea ED Provider Note NAME: ELISSA BOOTH AGE: 79 SEX: M : 1940 ARRIVES VIA: Ambulance INFORMANT: Patient, ED PROVIDER(S): Emeterio Berman MD Chief Complaint: Shortness of breath HPI: He reportedly has had approximate 3 days of worsening shortness of breath and dyspnea on exertion. Patient does complain of some orthopnea. The patient has had some lower extremity swelling although he feels as though they do not look too bad right now. The patient does have some chronic right greater than left lower extremity edema. The patient does have a known history of stents PEs and CHF and lung disease. The patient has occasional use of pipe. No recent travel the patient does live by himself her chart acuity no sick contacts. The patient has had a mild nonproductive cough. The patient has tried taking Lasix at the behest of his hand button splitter as he does see Dillon Stanton but this is not improved his symptoms. He does have a history of A. fib but apparently is not always in A. fib. ROS: See HPI for pertinent positives and negatives. A total of 10 systems were reviewed and otherwise negative. Past medical history: See below Surgical history: See below Social history: See below Physical Exam: GENERAL: Mildly ill in appearance, is a cannula in place. EYE EXAM: Normal conjunctiva. PERRL, no anisocoria and EOM's grossly intact w/o pain. NECK: Supple, no nuchal rigidity, no adenopathy, non-tender. No signs of meningismus. LUNGS: Clear to auscultation. Normal chest wall mechanics. HEART: NSR, no MRG. ABDOMEN: Abdomen soft, non-tender, normo-active bowel sounds, no masses, no rebound or guarding. BACK: No CVA TTP. SKIN: No rashes and no bruising. UPPER EXTREMITIES: Upper extremities are grossly normal. LOWER EXTREMITIES: Grossly normal, right greater than left lower extremity edema, well perfused. NEURO EXAM: A&O x3, cranial nerves II-XII grossly intact, normal speech, moves all 4 extremities on command w/o issue. Differential diagnoses: Reactive airway disease, pneumonia, pneumothorax, COPD, CHF, infections, cardiac ischemia, pulmonary embolism, musculoskeletal, gastrointestinal, as well as other pathologies. Course: Patient was seen and evaluated the bedside. Full history physical exam was performed. EKG: A. fib, rate of 88, wide QRS, right bundle branch block pattern, PVC noted, Q waves inferiorly, slight depression in the lateral leads. Prior review does show that the patient has had some sinus bradycardia with frequent PVCs on his last 2 EKGs the patient's depressions and right bundle branch block appear to be old. Comparison EKGs 07/11/2018 and 06/01/2018. Imaging Studies: Radiology results as stated below per my review in the radiologist's interpretation: XR chest 1V portable CLINICAL HISTORY: Dyspnea COMPARISON STUDY: 07/11/2018 FINDINGS: The heart remains enlarged. There are calcified pleural plaques. There is no overt failure.. There is no lobar consolidation. There are no pleural effusions.[ IMPRESSION: 1. Cardiomegaly without evidence of overt failure 2. No evidence of focal pulmonary consolidation 3. Chronic calcified pleural plaques ACT 112: Negative or not required by law. Electronically signed by: Jacinto Lau M.D. 02/23/2020 6:43 PM Dictated: 02/23/201841 Transcribed: 02/23/201841 Cardiac monitoring: An order was placed for continuous cardiac monitoring. The monitor shows a rate of 90 with irregularly irregular rhythm. MDM: He does present with concern for worsening shortness of breath. Patient does have multiple medical comorbidities and currently on diltiazem and apixaban as well as baby aspirin. Blood work was obtained along with an EKG, troponin chest x-ray. Patient has normal white count H&H platelet count. The patient's VBG shows pH of 748 with a PCO2 of 28. Patient's kidney function is about baseline. Troponin is positive but the patient does have an elevated BNP and believe this more related to demand ischemia as the patient does not have any overt changes on his EKG. Urinalysis is negative. I did speak the on-call hospitalist Dr. Ford and the patient was admitted to the medicine service. Past Med/Surg History Medical History Anemia Anorectal fistula Arthritis Asthma Atrial fibrillation Carotid artery stenosis >70% NEHAL, <50% LICA Chronic kidney disease, stage 3 (moderate) COPD (chronic obstructive pulmonary disease) Coronary artery disease Remote h/o stent to RCA. Stent patent on 2005 cath per cardio. Degenerative arthritis of right knee Diastolic congestive heart failure Eczema Erectile dysfunction H/O difficult intubation Glidescope 2011 lap tracie History of pulmonary embolism (02/2011) Hyperlipidemia Hypertension On anticoagulant therapy PAD (peripheral artery disease) (03/14/14) L common iliac angioplasty/stent, stenting of totally occluded R SFA, angiop lasty of occluded RCF 2006. Angioplasty to R SFA in-stent stenosis 2013. PVCs (premature ventricular contractions) Longstanding hx, asymptomatic. Started on 12.5mg Metoprolol BID during admission 03/2018, mild reduction in LV systolic function felt possibly 2/2 to frequent ectopy. Restrictive lung disease Right lower lobe pulmonary nodule Noted on CT 04/03, 12mo f/u recommended. 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 S/P cataract surgery R/L S/P coronary artery stent placement (1995) RCA Status post surgery (12/15/17) placement of seton drain in transsphinteric fistula Social History Smoking Status: Current every day smoker Second Hand Exposure: No; Hx Alcohol Use: No Hx Substance Use: No Preferred Language: Pakistani Communication Ability: Effective Visual Impairment: No Limitations Hearing Ability: Use of Hearing Aid Editor Publications Required: No Beliefs That Will Affect Care: None marital status: / Current Living Situation: Alone current occupational status: retired How many Children do You have: 4 Feels Safe at Home: Yes Childhood Exposure to Second-Hand Smoke: No Diet Comment: regular caffeine: Yes (2-3 cups coffee) during the past year weight has: increased > 10 lbs Dental Care, Regularly: Yes Physical Activity Frequency: 1-2 Times per Week Seatbelt Use: always Sunscreen Use: Yes Allergies Allergies Allergy/AdvReac Type Severity Reaction Status Date / Time warfarin Allergy Intermediate hives, rash Verified 02/23/20 19:33 niacin Allergy Unknown Unverified 02/23/20 19:33 [From Niaspan Extended-Release] umeclidinium Allergy Unknown Unverified 02/23/20 19:33 [From Anoro Ellipta] vilanterol Allergy Unknown Unverified 02/23/20 19:33 [From Anoro Ellipta] Jkmyrog-Keq-Rgi Reductase AdvReac Intermediate muscle Verified 02/23/20 19:33 Inhibitor weakness,pain, cramps Home Meds Home Medications Medication Instructions Recorded Confirmed multivitamin 1 tab PO DAILY 06/28/19 02/15/20 aspirin 81 mg tablet,delayed 81 mg PO DAILY 09/21/19 02/15/20 release cholecalciferol (vitamin D3) PO DAILY 09/21/19 02/15/20 Previous Rx's Medication Instructions Recorded apixaban 2.5 mg tablet 2.5 mg PO BID #180 tab 06/28/19 fluticasone propionate 115 2 puffs INH BID #12 gm 06/28/19 mcg-salmeterol 21 mcg/actuation HFA inhaler spironolactone 25 1 tab PO BID #180 tab 09/29/19 mg-hydrochlorothiazide 25 mg tablet albuterol sulfate 90 mcg/actuation 2 puffs INH .COMPLEX PRN #1 units 01/29/20 aerosol inhaler diltiazem HCl 120 mg capsule,24 See Rx Instructions .ROUTE 02/15/20 hr,extended release .COMPLEX #30 cap Results & Data (ED) Vital Signs Vital Signs - 24 hr 02/23/20 17:46 02/23/20 18:30 02/23/20 18:32 Temperature 36.7 C Temperature Source Oral Pulse Rate 90 Respiratory Rate 20 Respiratory Effort / Characteristics Short of Breath Blood Pressure 193/108 H Blood Pressure Mean 136 Pulse Oximetry 95 95 95 Oxygen Delivery Method Room Air Nasal Cannula Room Air Room Air Oxygen Flow Rate 0 Sepsis Recent Fever Within 48 Hours No Sepsis New/Unexplained Change in Mental Status N/A Sepsis Action Taken by Nursing No Action Required Oxygen Flow Rate - Titration 2 Pulse Oximetry Post Tiitration 98 02/23/20 19:01 Temperature Temperature Source Pulse Rate 86 Respiratory Rate 23 Respiratory Effort / Characteristics Blood Pressure 154/110 H Blood Pressure Mean 130 Pulse Oximetry 98 Oxygen Delivery Method Nasal Cannula Oxygen Flow Rate 2 Sepsis Recent Fever Within 48 Hours Sepsis New/Unexplained Change in Mental Status Sepsis Action Taken by Nursing Oxygen Flow Rate - Titration Pulse Oximetry Post Tiitration Home Medications Current Medication List: was personally reviewed by me Laboratory Data Attestation: I reviewed the patient's lab results. Result diagrams: 02/23/20 17:56 02/23/20 17:56 Lab Results 02/23/20 02/23/20 02/23/20 Range/Units 17:56 17:56 17:56 WBC 10.72 (4.8-10.8) K/uL RBC 5.12 (4.7-6.1) M/uL Hgb 16.9 (14.0-18.0) g/dL Hct 48.9 (42-52) % MCV 95.5 (80-100) fL MCH 33.0 (25-34) pg MCHC 34.6 (32-36) g/dL RDW Std Deviation 48.4 H (36.4-46.3) fL RDW Coeff of Anton 13.8 (11.5-14.5) % Plt Count 221 (130-400) K/uL MPV 10.3 (7.4-10.4) fL Immature Gran % (Auto) 0.2 % Neut % (Auto) 72.6 % Lymph % (Auto) 14.0 % Hancock % (Auto) 10.3 % Eos % (Auto) 2.3 % Baso % (Auto) 0.6 % Neut # (Auto) 7.79 H (1.4-6.5) K/uL Lymph # (Auto) 1.50 (1.2-3.4) K/uL Hancock # (Auto) 1.10 H (0.11-0.59) K/uL Eos # (Auto) 0.25 (0-0.5) K/uL Baso # (Auto) 0.06 (0-0.2) K/uL Immature Gran # (Auto) 0.02 (0.00-0.02) K/uL PT 11.4 (9.0-12.0) Seconds INR 1.1 (0.9-1.1) APTT 28.8 (21.0-31.0) Seconds PTT Ratio 1.0 VBG pH (7.36-7.41) VBG pCO2 (38-50) mmHg VBG pO2 mmHg VBG HCO3 mmol/L VBG O2 Saturation % VBG Base Excess mEq/L Barometric Pressure mm/Hg Sodium 139 (136-145) mmol/L Potassium 4.2 (3.5-5.1) mmol/L Chloride 108 H (98-107) mmol/L Carbon Dioxide 21 (21-32) mmol/L Anion Gap 10.0 (3-11) BUN 35 H (7-18) mg/dl Creatinine 2.18 H (0.6-1.4) mg/dl Est Cr Clr Drug Dosing 33.3 ml/min Est GFR ( Amer) 31.7 Est GFR (Non-Af Amer) 27.4 BUN/Creatinine Ratio 16.2 (10-20) Glucose 174 H (70-99) mg/dl Calcium 8.5 (8.5-10.1) mg/dl Magnesium 1.9 (1.8-2.4) mg/dl Total Bilirubin 0.8 (0.2-1) mg/dl AST 24 (15-37) U/L ALT 23 (12-78) U/L Alkaline Phosphatase 78 (45-117) U/L Troponin I 0.069 H* (0-0.045) ng/ml NT-Pro-B Natriuret Pep 45735 H (0-1800) pg/ml Total Protein 7.8 (6.4-8.2) gm/dl Albumin 3.3 L (3.4-5.0) gm/dl Globulin 4.5 H (2.5-4.0) gm/dl Albumin/Globulin Ratio 0.7 L (0.9-2) Specimen Hemolysis Urine Color Urine Appearance (Clear) Urine pH (4.5-7.5) Ur Specific [place] (1.000-1.030) Urine Protein (Negative) Urine Glucose (UA) (Negative) Urine Ketones (Negative) Urine Blood (Negative) Urine Nitrite (Negative) Urine Bilirubin (Negative) Urine Urobilinogen (Negative) Ur Leukocyte Esterase (Negative) Urine WBC (Auto) (0-5) /hpf Urine RBC (Auto) (0-4) /hpf U Hyaline Cast (Auto) (0-5) /lpf U Epithel Cells (Auto) (0-5) /lpf Urine Bacteria (Auto) (Negative) 02/23/20 02/23/20 Range/Units 18:22 19:04 WBC (4.8-10.8) K/uL RBC (4.7-6.1) M/uL Hgb (14.0-18.0) g/dL Hct (42-52) % MCV (80-100) fL MCH (25-34) pg MCHC (32-36) g/dL RDW Std Deviation (36.4-46.3) fL RDW Coeff of Anton (11.5-14.5) % Plt Count (130-400) K/uL MPV (7.4-10.4) fL Immature Gran % (Auto) % Neut % (Auto) % Lymph % (Auto) % Hancock % (Auto) % Eos % (Auto) % Baso % (Auto) % Neut # (Auto) (1.4-6.5) K/uL Lymph # (Auto) (1.2-3.4) K/uL Hancock # (Auto) (0.11-0.59) K/uL Eos # (Auto) (0-0.5) K/uL Baso # (Auto) (0-0.2) K/uL Immature Gran # (Auto) (0.00-0.02) K/uL PT (9.0-12.0) Seconds INR (0.9-1.1) APTT (21.0-31.0) Seconds PTT Ratio VBG pH 7.48 H (7.36-7.41) VBG pCO2 28 L (38-50) mmHg VBG pO2 127 mmHg VBG HCO3 20 mmol/L VBG O2 Saturation 98.9 % VBG Base Excess -1.2 mEq/L Barometric Pressure 727.9 mm/Hg Sodium (136-145) mmol/L Potassium (3.5-5.1) mmol/L Chloride (98-107) mmol/L Carbon Dioxide (21-32) mmol/L Anion Gap (3-11) BUN (7-18) mg/dl Creatinine (0.6-1.4) mg/dl Est Cr Clr Drug Dosing ml/min Est GFR ( Amer) Est GFR (Non-Af Amer) BUN/Creatinine Ratio (10-20) Glucose (70-99) mg/dl Calcium (8.5-10.1) mg/dl Magnesium (1.8-2.4) mg/dl Total Bilirubin (0.2-1) mg/dl AST (15-37) U/L ALT (12-78) U/L Alkaline Phosphatase (45-117) U/L Troponin I (0-0.045) ng/ml NT-Pro-B Natriuret Pep (0-1800) pg/ml Total Protein (6.4-8.2) gm/dl Albumin (3.4-5.0) gm/dl Globulin (2.5-4.0) gm/dl Albumin/Globulin Ratio (0.9-2) Specimen Hemolysis Urine Color Yellow Urine Appearance Clear (Clear) Urine pH 5.0 (4.5-7.5) Ur Specific [place] 1.013 (1.000-1.030) Urine Protein Trace H (Negative) Urine Glucose (UA) Negative (Negative) Urine Ketones Negative (Negative) Urine Blood 2+ H (Negative) Urine Nitrite Negative (Negative) Urine Bilirubin Negative (Negative) Urine Urobilinogen Negative (Negative) Ur Leukocyte Esterase Negative (Negative) Urine WBC (Auto) 0 (0-5) /hpf Urine RBC (Auto) 5-10 H (0-4) /hpf U Hyaline Cast (Auto) 1-5 (0-5) /lpf U Epithel Cells (Auto) 0-5 (0-5) /lpf Urine Bacteria (Auto) Negative (Negative) Discharge Plan Visit Data Chief Complaint: Shortness of Breath/Dyspnea Stated Complaint: SOB ED Provider: Emeterio Berman Discharge Problem: Acute exacerbation of CHF (congestive heart failure), Dyspnea Forms Stand Alone Forms: My [facility] [address] [employer] Prescriptions Prescriptions: No Action spironolacton-hydrochlorothiaz 25-25 mg tablet 1 tab PO BID Qty: 180 RF: 3 albuterol sulfate 90 mcg/actuation HFA aerosol inhaler 2 puffs INH .COMPLEX PRN (Reason: shortness of breath or wheezing) Qty: 1 RF: 1 Advair HFA 115-21 mcg/actuation HFA aerosol inhaler 2 puffs INH BID Qty: 12 RF: 3 multivitamin tablet 1 tab PO DAILY RF: 0 apixaban 2.5 mg tablet 2.5 mg PO BID Qty: 180 RF: 1 diltiazem HCl [Tiadylt ER] 120 mg capsule,extended release 24 hr See Rx Instructions .ROUTE .COMPLEX Qty: 30 RF: 5 cholecalciferol (vitamin D3) PO DAILY RF: 0 aspirin 81 mg tablet,delayed release (DR/EC) 81 mg PO DAILY RF: 0 Discharge Problem: Acute exacerbation of CHF (congestive heart failure) Qualifiers: Heart failure type: unspecified Qualified Code(s): I50.9 - Heart failure, unspecified Dyspnea Qualifiers: Dyspnea type: dyspnea on exertion Qualified Code(s): R06.00 - Dyspnea, unspecified
[2020-02-23 18:41] LABS: Basophils # (auto) 0.06 K/uL (0-0.2); Basophils % (auto) 0.6 %; Eosinophils # (auto) 0.25 K/uL (0-0.5); Eosinophils % (auto) 2.3 %; Hematocrit (blood only) 48.9 % (42-52); Hemoglobin 16.9 g/dL (14.0-18.0); Immature Granulocytes # (auto) 0.02 K/uL (0.00-0.02); Immature Granulocytes % (auto) 0.2 %; Mean Corpuscular Hgb Conc 34.6 g/dL (32-36); Mean Corpuscular Volume 95.5 fL (80-100); Mean Platelet Volume 10.3 fL (7.4-10.4); Monocytes % (auto) 10.3 %; Neutrophils # (auto) 7.79 K/uL (1.4-6.5); Neutrophils % (auto) 72.6 %; Platelet Count 221 K/uL (130-400); RDW Coefficient of Variation 13.8 % (11.5-14.5); RDW Standard Deviation 48.4 fL (36.4-46.3); Red Blood Count 5.12 M/uL (4.7-6.1); White Blood Count 10.72 K/uL (4.8-10.8)
--- NOTE | 2020-02-23 18:45 | XRay Report ---
XR chest 1V portable CLINICAL HISTORY: Dyspnea COMPARISON STUDY: 07/11/2018 FINDINGS: The heart remains enlarged. There are calcified pleural plaques. There is no overt failure. . There is no lobar consolidation. There are no pleural effusions.[ IMPRESSION: 1. Cardiomegaly without evidence of overt failure 2. No evidence of focal pulmonary consolidation 3. Chronic calcified pleural plaques ACT 112: Negative or not required by law. Electronically signed by: Jacinto Lau M.D. 02/23/2020 6:43 PM
[2020-02-23 18:51] LABS: Appearance Urine Clear (Clear); Bacteria Urine Automated Negative (Negative); Bilirubin Urine Negative (Negative); Blood Urine 2+ (Negative); Color Urine Yellow; Epithelial Cell Urine Auto 0-5 /lpf (0-5); Glucose Urine UA Negative (Negative); Ketones Urine Negative (Negative); Leukocyte Esterase Urine Negative (Negative); Nitrite Urine Negative (Negative); Protein Urine Trace (Negative); Specific Gravity Urine 1.013 (1.000-1.030); Urobilinogen Urine Negative (Negative); WBC Urine Automated 0 /hpf (0-5)
[2020-02-23 18:53] LABS: INR 1.1 (0.9-1.1); Partial Thromboplastin Time 28.8 Seconds (21.0-31.0); Prothrombin Time 11.4 Seconds (9.0-12.0)
[2020-02-23 19:04] LABS: Albumin Level 3.3 gm/dl (3.4-5.0); BUN Creatinine Ratio 16.2 (10-20); Calcium 8.5 mg/dl (8.5-10.1); Creatinine Clr Calc Pharmacy 33.3 ml/min; Est GFR (African American) 31.7; Est GFR (Non-African American) 27.4; Magnesium 1.9 mg/dl (1.8-2.4); Potassium 4.2 mmol/L (3.5-5.1)
[2020-02-23 19:08] LABS: Albumin Globulin Ratio 0.7 (0.9-2); Bilirubin,Total 0.8 mg/dl (0.2-1); Globulin 4.5 gm/dl (2.5-4.0); Total Protein 7.8 gm/dl (6.4-8.2); Troponin I 0.069 ng/ml (0-0.045)
[2020-02-23] MEDS ORDERED: FUROSEMIDE 40 MG/4 ML VIAL IV STA (19:11)
[2020-02-23 19:16] LABS: Base Excess VBG -1.2 mEq/L; Oxygen Saturation VBG 98.9 %; pH VBG 7.48 (7.36-7.41)
--- NOTE | 2020-02-23 20:14 | History & Physical Report ---
Date of Service February 23, 2020 Assessment & Plan (1) Acute exacerbation of CHF (congestive heart failure): 79yo C male with multiple medical problems presenting with 3-4 days of worsening SOB/ARRINGTON and fatigue as well as nausea. Patient found to be in atrial fibrillation, rate controlled. Patient's dry weight reported to be 220 -225#, on his home scale this AM he was 232# (ER weight is 246#). Elevated BNP 08404 and troponin of 0.069. He has seen his PCP on 02/07/20 and Cardiology on 02/15/20 with same complaints. Echocardiogram from 04/02/18 - Mild concentric LVH with normal LV systolic function. LA is mildly dilated. Mild sclerosis of aortic valve without stenosis. Dilated IVC. EF of 50-55%. Patient with history of frequent PVCs for which he was placed on a beta farida in the past. Mention of paroxysmal atrial fibrillation in notes from PCP. However, no evidence of this on prior EKGs from 2011 onward. AF possibly leading to acute exacerbation of CHF. -Admit to medical floor with telemetry -Lasix 40mg IV BID -Monitor BMP q 12 hours to monitor renal function and electrolytes during diuresis -Intake and output q shift -Daily weight -Check 2D echo in the AM -Cardiology consultation appreciated - Patient follows with Dr. Reyes Present on Admission?: Yes (2) Coronary artery disease: History of CAD with remote history of stenting to the RCA in 1995. Patient denies chest pain. He has mildly elevated troponin at 0.069 most likely secondary to demand ischemia in setting of acute exacerbation of CHF. -Telemetry monitoring -Trend troponin q 8 hours x 3 sets -Echocardiogram in AM -Continue ASA -Patient is statin intolerant -Consider initiation of beta farida prior to discharge. Patient with CAD, AF, frequent PVCs. Hesitant to initiate this medication tonight while patient is having acute exacerbation of CHF Present on Admission?: Yes (3) Atrial fibrillation: EKG with irregularly irregular rhythm, 88bpm, RBBB and LAFB. Prior EKGs with junctional bradycardia, sinus bradycardia and various conduction delays. Electrolytes WNL -Will check TSH -Lyme antibodies -2D echo in AM -Continue Anticoagulation with Apixaban 2.5mg po BID -Cardiology consultation appreciated - ?rhythm control over rate control Present on Admission?: Yes (4) Chronic kidney disease, stage 3 (moderate): BUN elevated at 35, Cr=2.18, slightly up from last value of 1.95 (baseline 1.5). Patient is making adequate urine in response to Lasix dose administered in ER -Continue diuresis as above -BID BMP to monitor renal function and electrolytes -Avoid nephrotoxic agents -Renal dosing where needed -Montior I/Os Present on Admission?: Yes (5) Hypertension: Blood pressure elevated in ER. He reports home pressure to be appx 130/60. He is taking Spironolactone/HCTZ at home -Continue to monitor -Consider BB prior to DC Present on Admission?: Yes (6) COPD (chronic obstructive pulmonary disease): Chronic. No cough/wheeze/sputum -Continue Fluticasone/Salmeterol -Albuterol PRN Present on Admission?: Yes (7) PAD (peripheral artery disease): s/p left common iliac artery angioplasty in July 2006 and angioplasty and stenting of his right superficial femoral artery. Second angioplasty of the right SFA for in-stent restenosis in 2013. He had a right carotid endarterectomy performed in June 2019 as well. Extremities are warm, well perfused with palpable pulses -Continue ASA -Statin intolerant Present on Admission?: Yes (8) Hyperlipidemia: Patient is intolerant to statins. Initiating Zetia was discussed outpatient, patient not interested at this time. -Noted F/E/N - Diuresis as above. BMP BID. Low Na/Heart healthy diet as tolerated Ppx - Continue Apixaban 2.5mgpo daily Code - Full. Patient does not want penitentiary life support measures, however Dispo - Admit to medical floor with telemetry Present on Admission?: Yes Admission and Anticipated Discharge Date Admission Date: 02/23/20 Anticipated date of discharge: 02/25/20 History of Present Illness Chief Complaint: SOB Primary Care Provider: Winnie Fletcher DO Favian Multani is an 79yo C male with multiple medical problems to include CAD, CHF, PAD, COPD and CKD presenting with progressive SOB/ARRINGTON for the last 3-4 days. Patient follows with Cardiology, last seen on 02/15/20 with complaint of hypervolemia. During that visit he was instructed to increase his HCTZ/Spironolactone from one tab BID to two tabs in the morning and one tab in the afternoon. He has been taking the extra dose for the last 3 days. He was also prescribed Diltiazem 120mg po daily to help control his atrial fibrillation which he has not yet started. Patient reports that his dry weight is approximately 220-225#. This AM he weight 232#. Patient reports SOB and ARRINGTON as well as fatigue and some nausea. He denies CP/palpitations/abdominal pain/diarrhea. No sick contacts, no recent travel, no concern for exposure to COVID-19 at this time. Daughter at bedside during encounter. ER Course: Lasix 40mg IV Allergies Allergy/AdvReac Type Severity Reaction Status Date / Time warfarin Allergy Intermediate hives, rash Verified 02/23/20 19:33 niacin Allergy Unknown Unverified 02/23/20 19:33 [From Niaspan Extended-Release] umeclidinium Allergy Unknown Unverified 02/23/20 19:33 [From Anoro Ellipta] vilanterol Allergy Unknown Unverified 02/23/20 19:33 [From Anoro Ellipta] Gmtukzb-Diu-Mjf Reductase AdvReac Intermediate muscle Verified 02/23/20 19:33 Inhibitor weakness,pain, cramps Home Medications Home Medications Medication Instructions Recorded Confirmed Type apixaban 2.5 mg tablet 2.5 mg PO BID #180 tab 06/28/19 02/23/20 Rx fluticasone propionate 115 2 puffs INH BID #12 gm 06/28/19 02/23/20 Rx mcg-salmeterol 21 mcg/actuation HFA inhaler multivitamin 1 tab PO DAILY 06/28/19 02/23/20 History aspirin 81 mg tablet,delayed 81 mg PO DAILY 09/21/19 02/23/20 History release albuterol sulfate 2 puffs INH Q4 PRN 02/23/20 02/23/20 History diltiazem HCl [Tiadylt ER] 120 mg PO HS 02/23/20 02/23/20 History spironolacton-hydrochlorothiaz 2 tab PO QAM 02/23/20 02/23/20 History spironolacton-hydrochlorothiaz 1 tab PO .QAFTERNOON 02/23/20 02/23/20 History [Aldactazide] Past Med/Surg History Medical History Anemia Anorectal fistula Arthritis Asthma Atrial fibrillation Carotid artery stenosis >70% NEHAL, <50% LICA Chronic kidney disease, stage 3 (moderate) COPD (chronic obstructive pulmonary disease) Coronary artery disease Remote h/o stent to RCA. Stent patent on 2005 cath per cardio. Degenerative arthritis of right knee Diastolic congestive heart failure Eczema Erectile dysfunction H/O difficult intubation Glidescope 2011 lap tracie History of pulmonary embolism (02/2011) Hyperlipidemia Hypertension On anticoagulant therapy PAD (peripheral artery disease) (03/14/14) L common iliac angioplasty/stent, stenting of totally occluded R SFA, angioplasty of occluded RCF 2006. Angioplasty to R SFA in-stent stenosis 2013. PVCs (premature ventricular contractions) Longstanding hx, asymptomatic. Started on 12.5mg Metoprolol BID during admission 03/2018, mild reduction in LV systolic function felt possibly 2/2 to frequent ectopy. Restrictive lung disease Right lower lobe pulmonary nodule Noted on CT 04/03, 12mo f/u recommended. 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/2006) R SFA [employer] AND and stenting S/P cataract surgery R/L S/P coronary artery stent placement (1995) RCA Status post surgery (12/15/17) placement of seton drain in transsphinteric fistula Social History Smoking Status: Current every day smoker Second Hand Exposure: No; Hx Alcohol Use: No Hx Substance Use: No Preferred Language: [place] Communication Ability: Effective Visual Impairment: No Limitations Hearing Ability: Use of Hearing Aid Grader Green [place] Required: No Beliefs That Will Affect Care: None marital status: / Current Living Situation: Alone current occupational status: retired How many Children do You have: 4 Feels Safe at Home: Yes Childhood Exposure to Second-Hand Smoke: No Diet Comment: regular caffeine: Yes (2-3 cups coffee) during the past year weight has: increased > 10 lbs Dental Care, Regularly: Yes Physical Activity Frequency: 1-2 Times per Week Seatbelt Use: always Sunscreen Use: Yes Review of Systems Review of Systems: All systems reviewed & are unremarkable except as noted in HPI & below Physical Exam Physical Exam: General: patient resting comfortably, NAD, non-toxic in appearance, AA&O x 4 Skin: warm, dry, intact, no rashes or lesions HEENT: NC/AT, PERRL, EOMI, anicteric sclera, conjunctiva without injection, external ear normal to inspection and nontender, nares patent, moist mucus membranes, dentition intact, no oropharyngeal lesions, neck supple, trachea midline, no LAD, no thyromegaly, no JVD Heart: +S1/S2, irregularly irregular, no m/r/g Lungs: equal air entry bilaterally, mildly diminished at bases bilaterally, no rales/rhonchi/wheezes Abd: +BS, soft, NT/ND, no masses/organomegaly/ascites Ext: warm, 2+ pulses in UE/LE bilaterally, no clubbing/cyanosis or edema Neuro: nonfocal, patient AA&O x 4, speech intact, no facial droop, moving all extremities on command with equal strength 5/5 Results & Data Results & Data ([facility]) Vital Signs (Past 12 Hours) Vital Signs Temp Pulse Resp BP Pulse Ox 02/23/20 19:01 86 23 154/110 H 98 02/23/20 18:32 36.7 C 90 20 193/108 H 95 02/23/20 18:30 95 02/23/20 17:46 95 Laboratory Results Lab Results 02/23/20 02/23/20 02/23/20 Range/Units 17:56 17:56 17:56 WBC 10.72 (4.8-10.8) K/uL RBC 5.12 (4.7-6.1) M/uL Hgb 16.9 (14.0-18.0) g/dL Hct 48.9 (42-52) % MCV 95.5 (80-100) fL MCH 33.0 (25-34) pg MCHC 34.6 (32-36) g/dL RDW Std Deviation 48.4 H (36.4-46.3) fL RDW Coeff of Anton 13.8 (11.5-14.5) % Plt Count 221 (130-400) K/uL MPV 10.3 (7.4-10.4) fL Immature Gran % (Auto) 0.2 % Neut % (Auto) 72.6 % Lymph % (Auto) 14.0 % [place] % (Auto) 10.3 % Eos % (Auto) 2.3 % Baso % (Auto) 0.6 % Neut # (Auto) 7.79 H (1.4-6.5) K/uL Lymph # (Auto) 1.50 (1.2-3.4) K/uL [place] # (Auto) 1.10 H (0.11-0.59) K/uL Eos # (Auto) 0.25 (0-0.5) K/uL Baso # (Auto) 0.06 (0-0.2) K/uL Immature Gran # (Auto) 0.02 (0.00-0.02) K/uL PT 11.4 (9.0-12.0) Seconds INR 1.1 (0.9-1.1) APTT 28.8 (21.0-31.0) Seconds PTT Ratio 1.0 VBG pH (7.36-7.41) VBG pCO2 (38-50) mmHg VBG pO2 mmHg VBG HCO3 mmol/L VBG O2 Saturation % VBG Base Excess mEq/L Barometric Pressure mm/Hg Sodium 139 (136-145) mmol/L Potassium 4.2 (3.5-5.1) mmol/L Chloride 108 H (98-107) mmol/L Carbon Dioxide 21 (21-32) mmol/L Anion Gap 10.0 (3-11) BUN 35 H (7-18) mg/dl Creatinine 2.18 H (0.6-1.4) mg/dl Est Cr Clr Drug Dosing 33.3 ml/min Est GFR ( Amer) 31.7 Est GFR (Non-Af Amer) 27.4 BUN/Creatinine Ratio 16.2 (10-20) Glucose 174 H (70-99) mg/dl Calcium 8.5 (8.5-10.1) mg/dl Magnesium 1.9 (1.8-2.4) mg/dl Total Bilirubin 0.8 (0.2-1) mg/dl AST 24 (15-37) U/L ALT 23 (12-78) U/L Alkaline Phosphatase 78 (45-117) U/L Troponin I 0.069 H* (0-0.045) ng/ml NT-Pro-B Natriuret Pep 17806 H (0-1800) pg/ml Total Protein 7.8 (6.4-8.2) gm/dl Albumin 3.3 L (3.4-5.0) gm/dl Globulin 4.5 H (2.5-4.0) gm/dl Albumin/Globulin Ratio 0.7 L (0.9-2) Specimen Hemolysis Urine Color Urine Appearance (Clear) Urine pH (4.5-7.5) Ur Specific [place] (1.000-1.030) Urine Protein (Negative) Urine Glucose (UA) (Negative) Urine Ketones (Negative) Urine Blood (Negative) Urine Nitrite (Negative) Urine Bilirubin (Negative) Urine Urobilinogen (Negative) Ur Leukocyte Esterase (Negative) Urine WBC (Auto) (0-5) /hpf Urine RBC (Auto) (0-4) /hpf U Hyaline Cast (Auto) (0-5) /lpf U Epithel Cells (Auto) (0-5) /lpf Urine Bacteria (Auto) (Negative) 02/23/20 02/23/20 Range/Units 18:22 19:04 WBC (4.8-10.8) K/uL RBC (4.7-6.1) M/uL Hgb (14.0-18.0) g/dL Hct (42-52) % MCV (80-100) fL MCH (25-34) pg MCHC (32-36) g/dL RDW Std Deviation (36.4-46.3) fL RDW Coeff of Anton (11.5-14.5) % Plt Count (130-400) K/uL MPV (7.4-10.4) fL Immature Gran % (Auto) % Neut % (Auto) % Lymph % (Auto) % [place] % (Auto) % Eos % (Auto) % Baso % (Auto) % Neut # (Auto) (1.4-6.5) K/uL Lymph # (Auto) (1.2-3.4) K/uL [place] # (Auto) (0.11-0.59) K/uL Eos # (Auto) (0-0.5) K/uL Baso # (Auto) (0-0.2) K/uL Immature Gran # (Auto) (0.00-0.02) K/uL PT (9.0-12.0) Seconds INR (0.9-1.1) APTT (21.0-31.0) Seconds PTT Ratio VBG pH 7.48 H (7.36-7.41) VBG pCO2 28 L (38-50) mmHg VBG pO2 127 mmHg VBG HCO3 20 mmol/L VBG O2 Saturation 98.9 % VBG Base Excess -1.2 mEq/L Barometric Pressure 727.9 mm/Hg Sodium (136-145) mmol/L Potassium (3.5-5.1) mmol/L Chloride (98-107) mmol/L Carbon Dioxide (21-32) mmol/L Anion Gap (3-11) BUN (7-18) mg/dl Creatinine (0.6-1.4) mg/dl Est Cr Clr Drug Dosing ml/min Est GFR ( Amer) Est GFR (Non-Af Amer) BUN/Creatinine Ratio (10-20) Glucose (70-99) mg/dl Calcium (8.5-10.1) mg/dl Magnesium (1.8-2.4) mg/dl Total Bilirubin (0.2-1) mg/dl AST (15-37) U/L ALT (12-78) U/L Alkaline Phosphatase (45-117) U/L Troponin I (0-0.045) ng/ml NT-Pro-B Natriuret Pep (0-1800) pg/ml Total Protein (6.4-8.2) gm/dl Albumin (3.4-5.0) gm/dl Globulin (2.5-4.0) gm/dl Albumin/Globulin Ratio (0.9-2) Specimen Hemolysis Urine Color Yellow Urine Appearance Clear (Clear) Urine pH 5.0 (4.5-7.5) Ur Specific [place] 1.013 (1.000-1.030) Urine Protein Trace H (Negative) Urine Glucose (UA) Negative (Negative) Urine Ketones Negative (Negative) Urine Blood 2+ H (Negative) Urine Nitrite Negative (Negative) Urine Bilirubin Negative (Negative) Urine Urobilinogen Negative (Negative) Ur Leukocyte Esterase Negative (Negative) Urine WBC (Auto) 0 (0-5) /hpf Urine RBC (Auto) 5-10 H (0-4) /hpf U Hyaline Cast (Auto) 1-5 (0-5) /lpf U Epithel Cells (Auto) 0-5 (0-5) /lpf Urine Bacteria (Auto) Negative (Negative) Diagnostic Findings XR chest 1V portable CLINICAL HISTORY: Dyspnea COMPARISON STUDY: 07/11/2018 FINDINGS: The heart remains enlarged. There are calcified pleural plaques. There is no overt failure.. There is no lobar consolidation. There are no pleural effusions.[ IMPRESSION: 1. Cardiomegaly without evidence of overt failure 2. No evidence of focal pulmonary consolidation 3. Chronic calcified pleural plaques ACT 112: Negative or not required by law. Electronically signed by: Jacinto Lau M.D. 02/23/2020 6:43 PM Dictated: 02/23/201841 Transcribed: 02/23/201841 ECG Additional Comments: EKG shows atrial fibrillation at 88 bpm with PVCs, RBBB and LAFB, no acute ischemic changes Code Status & VTE Plan Code Status FULL VTE Prophylaxis Plan VTE Prophylaxis will be ordered: Yes PG Care Time/CCT Total # of Minutes Spent Total Time Spent with Patient: Total time spent is greater than 50% in coordination of care (as documented) at patient's floor/unit and/or counseling patient: Coding Level of Care Code 26725 Initial Inpt Care Lvl 3 Diagnoses Acute exacerbation of CHF (congestive heart failure) I50.9 Heart failure type: unspecified Coronary artery disease I25.10 Coronary Disease-Associated Artery/Lesion type: [place] artery [place] vs. transplanted heart: [place] heart Associated angina: without angina Atrial fibrillation I48.91 Atrial fibrillation type: unspecified Chronic kidney disease, stage 3 (moderate) N18.3 Hypertension I10 Hypertension type: essential hypertension COPD (chronic obstructive pulmonary disease) J44.9 COPD type: unspecified COPD PAD (peripheral artery disease) I73.9 Hyperlipidemia E78.5 Hyperlipidemia type: unspecified (1) Acute exacerbation of CHF (congestive heart failure) Heart failure type: unspecified Qualified Code(s): I50.9 - Heart failure, unspecified (2) Hyperlipidemia Hyperlipidemia type: unspecified Qualified Code(s): E78.5 - Hyperlipidemia, unspecified (3) Atrial fibrillation Atrial fibrillation type: unspecified Qualified Code(s): I48.91 - Unspecified atrial fibrillation (4) Hypertension Hypertension type: essential hypertension Qualified Code(s): I10 - Essential (primary) hypertension (5) COPD (chronic obstructive pulmonary disease) COPD type: unspecified COPD Qualified Code(s): J44.9 - Chronic obstructive pulmonary disease, unspecified (6) Coronary artery disease Coronary Disease-Associated Artery/Lesion type: [place] artery [place] vs. transplanted heart: [place] heart Associated angina: without angina Qualified Code(s): I25.10 - Atherosclerotic heart disease of [place] coronary artery without angina pectoris
[2020-02-23] MEDS ORDERED: NON-FORMULARY MEDICATION (Fluticasone Propion-Salmeterol [Advair Hfa] 2 PUFFS) INH SCH (21:57)
[2020-02-23] MEDS ORDERED: ALBUTEROL HFA 8 GM INHALER INH PRN (21:57)
[2020-02-23] MEDS ORDERED: ACETAMINOPHEN 325 MG TAB PO PRN (21:57)
[2020-02-23] MEDS: APIXABAN 2.5 MG TAB PO SCH (22:40)
[2020-02-24 02:10] LABS: Basophils # (auto) 0.06 K/uL (0-0.2); Basophils % (auto) 0.5 %; Eosinophils # (auto) 0.27 K/uL (0-0.5); Eosinophils % (auto) 2.3 %; Hematocrit (blood only) 50.4 % (42-52); Hemoglobin 17.6 g/dL (14.0-18.0); Immature Granulocytes # (auto) 0.04 K/uL (0.00-0.02); Immature Granulocytes % (auto) 0.3 %; Lymphocytes # (auto) 2.27 K/uL (1.2-3.4); Lymphocytes % (auto) 19.7 %; Mean Corpuscular Hemoglobin 33.5 pg (25-34); Mean Corpuscular Hgb Conc 34.9 g/dL (32-36); Mean Platelet Volume 10.3 fL (7.4-10.4); Monocytes # (auto) 1.18 K/uL (0.11-0.59); Monocytes % (auto) 10.2 %; Neutrophils # (auto) 7.72 K/uL (1.4-6.5); Platelet Count 214 K/uL (130-400); RDW Coefficient of Variation 13.8 % (11.5-14.5); RDW Standard Deviation 48.5 fL (36.4-46.3); Red Blood Count 5.25 M/uL (4.7-6.1); White Blood Count 11.54 K/uL (4.8-10.8)
[2020-02-24 02:36] LABS: BUN Creatinine Ratio 17.2 (10-20); Calcium 8.8 mg/dl (8.5-10.1); Creatinine Clr Calc Pharmacy 33.8 ml/min; Est GFR (African American) 33.4; Est GFR (Non-African American) 28.8; Magnesium 1.9 mg/dl (1.8-2.4)
[2020-02-24 02:47] LABS: Phosphorus 3.5 mg/dl (2.5-4.9); Thyroid Stimulating Hormone 1.4 uIu/ml (0.300-4.500)
[2020-02-24 03:13] LABS: Lyme Ab IgG w/WB Rflx Negative (Negative); Lyme Ab IgM w/WB Rflx Negative (Negative)
[2020-02-24] MEDS: ASPIRIN 81 MG ECTAB PO SCH (08:30)
[2020-02-24] MEDS: FUROSEMIDE 40 MG in SYRINGE 0 ML IV SCH ×2 (08:30→20:46)
[2020-02-24] MEDS: APIXABAN 2.5 MG TAB PO SCH ×2 (08:30→20:45)
--- NOTE | 2020-02-24 12:58 | Cardiology Consultation ---
Date of Consultation February 24, 2020 Assessment & Plan (1) Acute exacerbation of CHF (congestive heart failure): -agree with intravenous Lasix 40 mg b.i.d. -would continue diuretics until BUN and creatinine increase significantly. -question his compliance with medications and low-salt diet (2) Elevated troponin: -minor elevation likely related to his decompensated state. -echocardiogram pending. (3) Coronary artery disease: -RCA bare metal stent placed in 1995. -stent patent at time of cardiac catheterization February 2006. -nonobstructive disease noted on that catheterization. (4) Atrial fibrillation: -paroxysmal atrial fibrillation noted previously. -rate adequately controlled without AV active drugs. -continue renally adjusted Eliquis. History of Present Illness Attending Physician: Tonya Combs MD History of Present Illness Mr. Multani is an 79-year-old male admitted yesterday in decompensated CHF. This consultation was ordered to assist his management. Of note, the patient is well known to me from the outpatient setting. The patient was in his usual state of health until 4-6 weeks ago when he began to note progressive weight gain and exertional dyspnea. Over the last 3-4 days, the patient is short of breath with minimal activity such as standing up from a chair. He was seen in our clinic on February 14 at which time his spironolactone/hydrochlorothiazide 25/25 mg was increased from 1 to 2 tablets daily. He was also to start long-acting diltiazem 120 mg daily. His "dry" weight at that time was to be 220 lbs, however, he weighed 232 lbs on that particular day. Unfortunately, those medication changes were unsuccessful. The patient does carry history coronary artery disease. He had a bare metal stent placed to the RCA back in 1995. A cardiac catheterization performed in February 2006 noted a patent RCA stent and nonobstructive disease (LM 20%, LAD 30%, LCx 20%, proximal RCA 20%, distal RCA 30%, and PDA 20%). he has not experienced any recent angina pectoris. He further denies syncope, presyncope, PND, orthopnea, lower extremity edema, and claudication. The patient has paroxysmal atrial fibrillation remains completely asymptomatic. He does not experience palpitations. He is tolerating rate control and long- term anticoagulation without difficulty. currently, patient is resting comfortably in bed without complaints. He complains of frequent urination after his diuretic dosing. Past medical and surgical history 1. Coronary artery disease -see above 2. RCA EMS -9096 3. Hypertension 4. Moderate LVH 5. Statin intolerance hypercholesterolemia 6. Chronic diastolic CHF 7. Paroxysmal atrial fibrillation 8. Cerebral vascular disease 9. Right CEA -June 2019 10. Peripheral vascular disease 11. Right SFA stent - August 2006 12. Right common femoral angioplasty - August 2006 13. Left common iliac angioplasty - August 2006 14. Asymptomatic PVCs 15. COPD 16. Restrictive lung disease 17. Chronic renal failure 18. History of DVT/PE 19. Vitamin-D deficiency next 20. laparoscopic cholecystectomy 20. Right TKR - September 2017 20. Inguinal hernia repair 20. Hydrocele excision 20. Right THR Social history , lives alone Smokes a pipe on a daily basis Rare alcohol Family history Noncontributory Review of systems A 10 point review systems was negative except for that described above. Allergies Allergy/AdvReac Type Severity Reaction Status Date / Time warfarin Allergy Intermediate hives, rash Verified 02/23/20 19:33 niacin Allergy Unknown Unverified 02/23/20 19:33 [From Niaspan Extended-Release] umeclidinium Allergy Unknown Unverified 02/23/20 19:33 [From Anoro Ellipta] vilanterol Allergy Unknown Unverified 02/23/20 19:33 [From Anoro Ellipta] Tngowzb-Uum-Zcj Reductase AdvReac Intermediate muscle Verified 02/23/20 19:33 Inhibitor weakness,pain, cramps Home Medications Home Medications Medication Instructions Recorded Confirmed Type apixaban 2.5 mg tablet 2.5 mg PO BID #180 tab 06/28/19 02/23/20 Rx fluticasone propionate 115 2 puffs INH BID #12 gm 06/28/19 02/23/20 Rx mcg-salmeterol 21 mcg/actuation HFA inhaler multivitamin 1 tab PO DAILY 06/28/19 02/23/20 History aspirin 81 mg tablet,delayed 81 mg PO DAILY 09/21/19 02/23/20 History release albuterol sulfate 2 puffs INH Q4 PRN 02/23/20 02/23/20 History diltiazem HCl [Tiadylt ER] 120 mg PO HS 02/23/20 02/23/20 History spironolacton-hydrochlorothiaz 2 tab PO QAM 02/23/20 02/23/20 History spironolacton-hydrochlorothiaz 1 tab PO .QAFTERNOON 02/23/20 02/23/20 History [Aldactazide] Patient History Medical History Anemia Anorectal fistula Arthritis Asthma Atrial fibrillation Carotid artery stenosis >70% NEHAL, <50% LICA Chronic kidney disease, stage 3 (moderate) COPD (chronic obstructive pulmonary disease) Coronary artery disease Remote h/o stent to RCA. Stent patent on 2005 cath per cardio. Degenerative arthritis of right knee Diastolic congestive heart failure Eczema Erectile dysfunction H/O difficult intubation Glidescope 2011 lap tracie History of pulmonary embolism (02/2011) Hyperlipidemia Hypertension On anticoagulant therapy PAD (peripheral artery disease) (03/14/14) L common iliac angioplasty/stent, stenting of totally occluded R SFA, angioplasty of occluded RCF 2006. Angioplasty to R SFA in-stent stenosis 2013. PVCs (premature ventricular contractions) Longstanding hx, asymptomatic. Started on 12.5mg Metoprolol BID during admission 03/2018, mild reduction in LV systolic function felt possibly 2/2 to frequent ectopy. Restrictive lung disease Right lower lobe pulmonary nodule Noted on CT 04/03, 12mo f/u recommended. 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/2006) R SFA [employer] and stenting S/P cataract surgery R/L S/P coronary artery stent placement (1995) RCA Status post surgery (12/15/17) placement of seton drain in transsphinteric fistula Social History Smoking Status: Current some day smoker Second Hand Exposure: No; Hx Alcohol Use: No Hx Substance Use: No Preferred Language: Croatian Communication Ability: Effective Visual Impairment: No Limitations Hearing Ability: Use of Hearing Aid [place] Hand Required: No Beliefs That Will Affect Care: None marital status: / Current Living Situation: Alone current occupational status: retired How many Children do You have: 4 Feels Safe at Home: Yes Safety Concerns: Feels Safe At This Time Childhood Exposure to Second-Hand Smoke: No Diet Comment: regular caffeine: Yes (2-3 cups coffee) during the past year weight has: increased > 10 lbs Dental Care, Regularly: Yes Physical Activity Frequency: 1-2 Times per Week Seatbelt Use: always Sunscreen Use: Yes Physical Exam Physical Exam: In general this is an obese white male lying supine in bed without complaints. HEENT exam is negative. Neck is supple with full carotid upstrokes. No obvious bruits. Jugular venous pressure is 10 cm water at 90. There is no thyromegaly. Cardiovascular exam reveals an irregular rhythm with distant heart sounds. No obvious murmurs. Lungs are clear without rales, rhonchi, or wheezes. Abdomen is obese without bruits. Extremities reveal intact radial artery pulses bilaterally. There is trace pretibial edema. Results & Data ([facility]) Vital Signs (Past 12 Hours) Vital Signs Temp Pulse Pulse Pulse Resp BP BP 02/24/20 11:56 36.7 C 76 18 157/88 H 02/24/20 07:46 36.6 C 82 18 166/89 H 02/24/20 07:13 94 H 02/24/20 03:21 65 18 02/24/20 03:05 36.9 C 80 18 181/75 H Pulse Ox 02/24/20 11:56 93 02/24/20 07:46 94 02/24/20 07:13 02/24/20 03:21 98 02/24/20 03:05 97 Laboratory Results CBC notes hemoglobin is 17.6, hematocrit 50.4, white count 11.5, platelet count of [id number]. Electrolytes note a sodium of 139, potassium 4.0, chloride 106, bicarb 25, BUN 36, creatinine 2.05, glucose of 123. Initial troponin was 0.069 with follow-[place] 0[place] [address]. Diagnostic Findings EKG notes atrial fibrillation with a controlled ventricular response. A PVC or aberrancy beat is noted. There is a left axis deviation and complete right bundle-branch block. Evidence of LVH and repolarization changes. Chest x-ray notes cardiomegaly and congestive failure. PG Care Time/CCT Total # of Minutes Spent Total Time Spent with Patient: Total time spent is greater than 50% in coordina tion of care (as documented) at patient's floor/unit and/or counseling patient: Coding Level of Care Code 86059 Initial Inpt Care Lvl 3 Diagnoses Acute exacerbation of CHF (congestive heart failure) I50.9 Heart failure type: unspecified Elevated troponin R79.89 Coronary artery disease I25.10 Coronary Disease-Associated Artery/Lesion type: [place] artery [place] vs. transplanted heart: [place] heart Associated angina: without angina Atrial fibrillation I48.91 Atrial fibrillation type: unspecified (1) Acute exacerbation of CHF (congestive heart failure) Heart failure type: unspecified Qualified Code(s): I50.9 - Heart failure, unspecified (2) Coronary artery disease Coronary Disease-Associated Artery/Lesion type: [place] artery [place] vs. transplanted heart: [place] heart Associated angina: without angina Qualified Code(s): I25.10 - Atherosclerotic heart disease of [place] coronary artery without angina pectoris (3) Atrial fibrillation Atrial fibrillation type: unspecified Qualified Code(s): I48.91 - Unspecified atrial fibrillation
--- NOTE | 2020-02-24 13:29 | Electrocardiogram Report ---
Test Reason : Blood Pressure : / mmHG Vent. Rate : 088 BPM Atrial Rate : 202 BPM P-R Int : 000 ms QRS Dur : 156 ms QT Int : 416 ms P-R-T Axes : 000 -51 111 degrees QTc Int : 503 ms Atrial fibrillation with premature ventricular or aberrantly conducted complexes Right bundle branch block Left anterior fascicular block Bifascicular block Voltage criteria for left ventricular hypertrophy Inferior infarct , age undetermined Abnormal ECG When compared with ECG of 11-JUL-2018 10:18, Atrial fibrillation has replaced Junctional rhythm (RBBB and left anterior fascicular block) has replaced Non-specific intra-ventricular conduction bloc k Inferior infarct is now Present Confirmed by Nitesh Reyes ([id number]) on 02/24/2020 1:29:45 PM Referred By: REFERRED SELF Confirmed By:Nitesh Reyes
--- NOTE | 2020-02-24 13:47 | Electrocardiogram Report ---
Test Reason : Blood Pressure : / mmHG Vent. Rate : 083 BPM Atrial Rate : 102 BPM P-R Int : 000 ms QRS Dur : 158 ms QT Int : 452 ms P-R-T Axes : 000 -56 110 degrees QTc Int : 531 ms Atrial fibrillation with premature ventricular or aberrantly conducted complexes Right bundle branch block Left anterior fascicular block Bifascicular block Minimal voltage criteria for LVH, may be normal variant Inferior infarct (cited on or before 23-FEB-2020) Abnormal ECG When compared with ECG of 23-FEB-2020 18:27, (unconfirmed) No significant change was found Confirmed by Nitesh Reyes ([id number]) on 02/24/2020 1:46:39 PM Referred By: REFERRED SELF Confirmed By:Nitesh Reyes
--- NOTE | 2020-02-24 15:06 | Hospitalist Progress Note ---
Date of Service February 24, 2020 Assessment & Plan (1) Acute exacerbation of CHF (congestive heart failure): Mr. Multani is an 79 yo gentleman who was admitted last night for dyspnea on exertion, progressive over the past 2 weeks. He was found to be volume overloaded on exam, and initiated on diuretic therapy. Acute exacerbation of CHF (congestive heart failure): - patient saw Jeremy Rodríguez with [facility] on 02/15/20 for similar symptoms, at which time his HCTZ-spironolactone dose was doubled and he was initiated on Diltiazem 120mg, daily. - Mr. Multani waited 6 days before adopting this new medication regimen, during which time his symptoms progressed - reports dry weight to be 220-225 lbs, found to be 232 lbs on admission - appeared volume-overloaded on admission exam - BNP elevated to >12,500 on admission - CXR showing cardiomegaly without obvious pleural effusions - ECHO pending - continue IV Lasix 40mg, BID; discontinue when Cr significantly rises - holding home HCTZ-spironolactone combo while on loop - of note, patient is not on a beta-farida, SOLA/ARB - patient insists he follows a low salt diet, although non-compliance with dietary guidelines is suspected cause of acute exacerbation - daily weights, I/Os - cardiology following, appreciate recs Atrial fibrillation: - paroxysmal atrial fibrillation noted previously; in A-fib on monitor since admission - chart review indicates he has been in A-fib on many recent encounters, thus suspect this rhythm is not cause of his CHF exacerbation - rate adequately controlled without AV active drugs. - continue renally adjusted Eliquis for anticoagulation Elevated troponin: - troponin elevated on admission to 0.06, peaked at 0.08, has since downtrended - likely secondary to decompensated CHF - echocardiogram pending Coronary artery disease: - RCA bare metal stent placed in 1995. - stent patent at time of cardiac catheterization February 2006. - nonobstructive disease noted on that catheterization - patient is considered "statin intolerant;" offered Zetia at previous cardiology visit but patient declined - continue daily baby ASA PAD: - s/p left common iliac artery angioplasty in July 2006 and angioplasty and stenting of his right superficial femoral artery. - Second angioplasty of the right SFA for in-stent restenosis in 2013. He had a right carotid endarterectomy performed in June 2019 as well -Continue ASA, 81mg, daily CKD, Stage 3 - baseline CR 1.5 - Cr today 2.09, BUN at 36, ratio 17 - likely secondary to loop diuretic use - continue to monitor qAM - renal dosing of Eliquis COPD -Continue Fluticasone/Salmeterol -Albuterol PRN Diet: low sodium, heart healthy DVT ppx: anticoagulated on Eliquis Dispo: Med/Surg with tele. PT/OT ordered Code: Full (2) Elevated troponin: (3) Chronic kidney disease, stage 3 (moderate): (4) Atrial fibrillation: Admission and Anticipated Discharge Date Admission Date: February 23, 2020 Anticipated date of discharge: 02/25/20 Supervising Physician Co-Signing Physician Notes Resident Physician Supervision Note: I independently interviewed and examined the patient and verified the ray history and physical, reviewed labs and image studies, discussed the case with the resident Dr. Oro and agree with the findings and care plan. Subjective Continues to be SOB with minimal exertion. Reports following a low salt diet. Review of Systems Constitutional: + fatigue Respiratory: + dyspnea on exertion Physical Exam Constitutional: WD/WN, vitals as above + obese and cooperative Eyes: PERRL, conjunctivae normal, anicteric sclerae ENMT: external ear and nose normal, oropharynx normal Neck: normal visual inspection and trachea midline Respiratory: normal respiratory effort, lungs clear to auscultation Cardiovascular: Rate/Rhythm: + irregularly irregular Heart Sounds: normal S1 and normal S2 Vessels: + JVD and normal carotid upstroke Extremities: + pedal edema (trace) heart sounds distant Gastrointestinal (Abdomen): Inspection/Auscultation: abdomen normal to inspection Skin: no rashes, warm and dry Psychiatric: A+Ox3, euthymic affect Results & Data Results & Data ([facility]) Vital Signs (Past 12 Hours) Vital Signs Temp Pulse Pulse Pulse Resp BP BP 02/24/20 11:56 36.7 C 76 18 157/88 H 02/24/20 07:46 36.6 C 82 18 166/89 H 02/24/20 07:13 94 H 02/24/20 03:21 65 18 02/24/20 03:05 36.9 C 80 18 181/75 H Pulse Ox 02/24/20 11:56 93 02/24/20 07:46 94 02/24/20 07:13 02/24/20 03:21 98 02/24/20 03:05 97 Resident Activity Tracking Resident Involvement: Resident Care Provided Care Provided: Adult Hospital Medicine (1) Acute exacerbation of CHF (congestive heart failure) Heart failure type: unspecified Qualified Code(s): I50.9 - Heart failure, unspecified (2) Atrial fibrillation Atrial fibrillation type: unspecified Qualified Code(s): I48.91 - Unspecified atrial fibrillation
[2020-02-24 16:58] LABS: BUN Creatinine Ratio 17.5 (10-20); Calcium 8.8 mg/dl (8.5-10.1); Creatinine Clr Calc Pharmacy 31.1 ml/min; Est GFR (African American) 30.1; Est GFR (Non-African American) 25.9
[2020-02-24] MEDS ORDERED: ACETAMINOPHEN 325 MG TAB PO PRN (17:06)
[2020-02-24] MEDS ORDERED: ONDANSETRON INJ 2 MG/ML 2 ML VIAL IV PRN (17:06)
[2020-02-24] MEDS ORDERED: ALUMINUM/MAGNESIUM SUSP 30 ML UDC PO PRN (17:06)
[2020-02-24] MEDS ORDERED: ZOLPIDEM TARTRATE 5 MG TAB PO PRN (17:06)
[2020-02-24] MEDS ORDERED: POLYETHYLENE (MIRALAX) 17 GM PACK PO PRN (17:06)
[2020-02-25 07:03] LABS: Hematocrit (blood only) 51.3 % (42-52); Hemoglobin 17.5 g/dL (14.0-18.0); Mean Corpuscular Hemoglobin 32.4 pg (25-34); Mean Corpuscular Hgb Conc 34.1 g/dL (32-36); Mean Platelet Volume 10.1 fL (7.4-10.4); Platelet Count 223 K/uL (130-400); RDW Coefficient of Variation 13.6 % (11.5-14.5); White Blood Count 11.34 K/uL (4.8-10.8)
[2020-02-25 07:30] LABS: BUN Creatinine Ratio 20.6 (10-20); Calcium 8.7 mg/dl (8.5-10.1); Creatinine Clr Calc Pharmacy 34.8 ml/min; Est GFR (Non-African American) 30.2; Potassium 3.1 mmol/L (3.5-5.1)
[2020-02-25] MEDS ORDERED: POTASSIUM CHLORIDE 20 MEQ TABCR PO STA (07:46)
[2020-02-25] MEDS: FUROSEMIDE 40 MG in SYRINGE 0 ML IV SCH ×2 (08:18→20:20)
[2020-02-25] MEDS: APIXABAN 2.5 MG TAB PO SCH ×2 (08:18→20:20)
[2020-02-25] MEDS: ASPIRIN 81 MG ECTAB PO SCH (08:19)
--- NOTE | 2020-02-25 09:32 | XCELERA ---
[id number]
--- NOTE | 2020-02-25 11:24 | Cardiology Progress Note ---
Date of Service February 25, 2020 Assessment & Plan (1) Acute exacerbation of CHF (congestive heart failure): -continues on IV Lasix 40 mg b.i.d. -continue diuretics until BUN and creatinine increase significantly. (2) Elevated troponin: -minor elevation likely related to his decompensated state at time of presentation. -echocardiogram notes low-normal systolic function, unchanged from study done in March 2018. (3) Coronary artery disease: -RCA bare metal stent placed in 1995. -stent patent at time of catheterization February 2006. -nonobstructive disease otherwise. (4) Atrial fibrillation: -paroxysmal atrial fibrillation diagnosed previously. -rate controlled without AV active drugs. -continue renally adjusted Eliquis. Admission and Anticipated Discharge Date Admission Date: February 23, 2020 Anticipated date of discharge: 02/25/20 Subjective The patient is resting comfortably in bed without complaints of chest pain or dyspnea. His dramatically improved over yesterday. Was able to sleep nearly supine. Physical Exam Physical Exam: In general this is an obese white male lying supine in bed without complaints. HEENT exam is negative. Neck is supple with full carotid upstrokes. No obvious bruits. Jugular venous pressure is 8 cm water at 90. There is no thyromegaly. Cardiovascular exam reveals an irregular rhythm with distant heart sounds. No obvious murmurs. Lungs are clear without rales, rhonchi, or wheezes. Abdomen is obese without bruits. Extremities reveal intact radial artery pulses bilaterally. There is trace pretibial edema. Results & Data ([facility]) Vital Signs (Past 12 Hours) Vital Signs Temp Pulse Pulse Resp BP Pulse Ox 02/25/20 07:31 78 02/25/20 07:30 36.5 C 78 20 160/81 H 94 02/25/20 03:00 36.5 C 80 20 173/85 H 96 02/25/20 00:01 80 02/24/20 23:46 36.8 C 81 20 162/85 H 95 Diagnostic Findings inside parts sales notes rate controlled atrial fibrillation. There is 1 brief run of nonsustained ventricular tachycardia. PG Care Time/CCT Total # of Minutes Spent Total Time Spent with Patient: Total time spent is greater than 50% in coordination of care (as documented) at patient's floor/unit and/or counseling patient: Coding Level of Care Code 04637 Subseq Hosp Care Lvl 3 Diagnoses Acute exacerbation of CHF (congestive heart failure) I50.9 Heart failure type: unspecified Elevated troponin R79.89 Coronary artery disease I25.10 Coronary Disease-Associated Artery/Lesion type: [place] artery [place] vs. transplanted heart: [place] heart Associated angina: without angina Atrial fibrillation I48.91 Atrial fibrillation type: unspecified (1) Acute exacerbation of CHF (congestive heart failure) Heart failure type: unspecified Qualified Code(s): I50.9 - Heart failure, unspecified (2) Coronary artery disease Coronary Disease-Associated Artery/Lesion type: [place] artery [place] vs. transplanted heart: [place] heart Associated angina: without angina Qualified Code(s): I25.10 - Atherosclerotic heart disease of [place] coronary artery without angina pectoris (3) Atrial fibrillation Atrial fibrillation type: unspecified Qualified Code(s): I48.91 - Unspecified atrial fibrillation
--- NOTE | 2020-02-25 13:40 | Hospitalist Progress Note ---
Date of Service February 25, 2020 Assessment & Plan (1) Acute exacerbation of CHF (congestive heart failure): Mr. Multani is an 79 yo gentleman who was admitted 02/22 for dyspnea on exertion, progressive over the past 2 weeks. He was found to be volume overloaded on exam, and initiated on diuretic therapy. Acute systolic exacerbation of CHF (congestive heart failure): - patient saw Jeremy Rodríguez with [place] cardiology on 02/15/20 for similar symptoms, at which time his HCTZ-spironolactone dose was doubled and he was initiated on Diltiazem 120mg, daily. - Mr. Multani waited 6 days before adopting this new medication regimen, during which time his symptoms progressed - reports dry weight to be 220-225 lbs, found to be 232 lbs on admission, down to 228 today - appeared volume-overloaded on admission exam - BNP elevated to >12,500 - CXR showing cardiomegaly without obvious pleural effusions - ECHO showing LV systolic function low-normal (EF = 50%), study unchanged from 03/2018 - continue IV Lasix 40mg, BID; - Monitor renal function - holding home HCTZ-spironolactone combo while on loop - of note, patient is not on a beta-farida, SOLA/ARB - patient insists he follows a low salt diet, although non-compliance with dietary guidelines is suspected cause of acute exacerbation - daily weights, I/Os - cardiology following, appreciate recs Atrial fibrillation: - paroxysmal atrial fibrillation noted previously; in A-fib on monitor since admission - chart review indicates he has been in A-fib on many recent encounters, thus suspect this rhythm is not cause of his CHF exacerbation - rate adequately controlled without AV active drugs. - continue renally adjusted Eliquis for anticoagulation Elevated troponin: - troponin elevated on admission to 0.06, peaked at 0.08, has since downtrended - likely secondary to decompensated CHF - echocardiogram without wall motion abnormalities Coronary artery disease: - RCA bare metal stent placed in 1995. - stent patent at time of cardiac catheterization February 2006. - nonobstructive disease noted on that catheterization - patient is considered "statin intolerant;" offered Zetia at previous cardiology visit but patient declined - continue daily baby ASA Hypokalemia - level at 3.1 today - PO replacement ordered - likely secondary to loop direutic use - trend in am labs PAD: - s/p left common iliac artery angioplasty in July 2006 and angioplasty and stenting of his right superficial femoral artery. - Second angioplasty of the right SFA for in-stent restenosis in 2013. He had a right carotid endarterectomy performed in June 2019 as well - Continue ASA, 81mg, daily CKD, Stage 3 - baseline CR 1.5 - Cr today 2.0, down from 2.28 - ongoing loop diuretic use - continue to monitor qAM - renal dosing of Eliquis COPD -Continue Fluticasone/Salmeterol -Albuterol PRN Diet: low sodium, heart healthy DVT ppx: anticoagulated on Eliquis Dispo: Med/Surg with tele. PT/OT ordered Code: Full (2) Elevated troponin: (3) Chronic kidney disease, stage 3 (moderate): (4) Atrial fibrillation: Admission and Anticipated Discharge Date Admission Date: February 23, 2020 Anticipated date of discharge: 02/25/20 Supervising Physician Co-Signing Physician Notes Resident Physician Supervision Note: I independently interviewed and examined the patient and verified the ray history and physical, reviewed labs and image studies, discussed the case with the resident Dr. Oro and agree with the findings and care plan. Subjective No acute events overnight. Feeling better today - only slightly dizzy when standing up Review of Systems Cardiovascular: + lightheadedness Physical Exam Constitutional: WD/WN, vitals as above + obese and cooperative Eyes: PERRL, conjunctivae normal, anicteric sclerae ENMT: external ear and nose normal, oropharynx normal Neck: normal visual inspection and trachea midline Respiratory: normal respiratory effort, lungs clear to auscultation normal respiratory effort; no respiratory distress Auscultation: + crackles (bilateral lung bases ) Cardiovascular: RRR, no murmur, no edema Rate/Rhythm: + irregularly irregular Heart Sounds: normal S1 and normal S2 Vessels: + JVD and normal carotid upstroke Extremities: + pedal edema (trace) Gastrointestinal (Abdomen): Inspection/Auscultation: abdomen normal to inspection Skin: no rashes, warm and dry Psychiatric: A+Ox3, euthymic affect Results & Data Results & Data ([facility]) Vital Signs (Past 12 Hours) Vital Signs Temp Pulse Pulse Resp BP Pulse Ox 02/25/20 12:23 96 02/25/20 11:33 36.8 C 78 22 155/75 H 92 02/25/20 07:31 78 02/25/20 07:30 36.5 C 78 20 160/81 H 94 02/25/20 03:00 36.5 C 80 20 173/85 H 96 Resident Activity Tracking Resident Involvement: Resident Care Provided Care Provided: Adult Hospital Medicine (1) Acute exacerbation of CHF (congestive heart failure) Heart failure type: unspecified Qualified Code(s): I50.9 - Heart failure, unspecified (2) Atrial fibrillation Atrial fibrillation type: unspecified Qualified Code(s): I48.91 - Unspecified atrial fibrillation
[2020-02-25] MEDS: FLUTICASONE PROPIONATE NA SPR 16 GM BTL SCH (14:22)
[2020-02-25] MEDS: POTASSIUM CHLORIDE 20 MEQ TABCR PO SCH (18:10)
[2020-02-26 07:53] LABS: BUN Creatinine Ratio 20.3 (10-20); Calcium 9.1 mg/dl (8.5-10.1); Creatinine Clr Calc Pharmacy 30.4 ml/min; Est GFR (African American) 29.8; Est GFR (Non-African American) 25.7; Potassium 3.5 mmol/L (3.5-5.1)
[2020-02-26] MEDS: FUROSEMIDE 40 MG in SYRINGE 0 ML IV SCH (09:03)
[2020-02-26] MEDS: FLUTICASONE PROPIONATE NA SPR 16 GM BTL SCH (09:07)
[2020-02-26] MEDS: ASPIRIN 81 MG ECTAB PO SCH (09:07)
[2020-02-26] MEDS: APIXABAN 2.5 MG TAB PO SCH (09:07)
[2020-02-26] MEDS: POTASSIUM CHLORIDE 20 MEQ TABCR PO SCH (09:07)
--- NOTE | 2020-02-26 10:40 | Discharge Summary ---
Date of Service February 26, 2020 Admission HPI Per Admitting Provider Favian Multani is an 79yo C male with multiple medical problems to include CAD, CHF, PAD, COPD and CKD presenting with progressive SOB/ARRINGTON for the last 3-4 days. Patient follows with Cardiology, last seen on 02/15/20 with complaint of hypervolemia. During that visit he was instructed to increase his HCTZ/Spironolactone from one tab BID to two tabs in the morning and one tab in the afternoon. He has been taking the extra dose for the last 3 days. He was also prescribed Diltiazem 120mg po daily to help control his atrial fibrillation which he has not yet started. Patient reports that his dry weight is approxima tely 220-225#. This AM he weight 232#. Patient reports SOB and ARRINGTON as well as fatigue and some nausea. He denies CP/palpitations/abdominal pain/diarrhea. No sick contacts, no recent travel, no concern for exposure to COVID-19 at this time. Daughter at bedside during encounter. ER Course: Lasix 40mg IV Admission Exam Per Admitting Provider General: patient resting comfortably, NAD, non-toxic in appearance, AA&O x 4 Skin: warm, dry, intact, no rashes or lesions HEENT: NC/AT, PERRL, EOMI, anicteric sclera, conjunctiva without injection, external ear normal to inspection and nontender, nares patent, moist mucus membranes, dentition intact, no oropharyngeal lesions, neck supple, trachea midline, no LAD, no thyromegaly, no JVD Heart: +S1/S2, irregularly irregular, no m/r/g Lungs: equal air entry bilaterally, mildly diminished at bases bilaterally, no rales/rhonchi/wheezes Abd: +BS, soft, NT/ND, no masses/organomegaly/ascites Ext: warm, 2+ pulses in UE/LE bilaterally, no clubbing/cyanosis or edema Neuro: nonfocal, patient AA&O x 4, speech intact, no facial droop, moving all extremities on command with equal strength 5/5 Principal Diagnosis CHF exacerbation Discharge Exam Constitutional WD/WN, vitals as above + obese and cooperative Eyes PERRL, conjunctivae normal, anicteric sclerae ENMT external ear and nose normal, oropharynx normal Neck normal visual inspection and trachea midline Respiratory normal respiratory effort, lungs clear to auscultation normal respiratory effort; no respiratory distress Auscultation: lungs clear to auscultation bilaterally Cardiovascular RRR, no murmur, no edema Rate/Rhythm: + irregularly irregular Heart Sounds: normal S1 and normal S2 Vessels: + JVD and normal carotid upstroke Extremities: + pedal edema (trace) Gastrointestinal (Abdomen) Inspection/Auscultation: abdomen normal to inspection Skin no rashes, warm and dry Psychiatric A+Ox3, euthymic affect Discharge Data Allergies Allergy/AdvReac Type Severity Reaction Status Date / Time warfarin Allergy Intermediate hives, rash Verified 02/23/20 19:33 niacin Allergy Unknown Unverified 02/23/20 19:33 [From Niaspan Extended-Release] umeclidinium Allergy Unknown Unverified 02/23/20 19:33 [From Anoro Ellipta] vilanterol Allergy Unknown Unverified 02/23/20 19:33 [From Anoro Ellipta] Hbyuszo-Qct-Mmj Reductase AdvReac Intermediate muscle Verified 02/23/20 19:33 Inhibitor weakness,pain, cramps Consultations 02/23/20 19:57 ED Decision to Admit Stat 02/23/20 21:57 Consult Cardiology Routine Hospital Course (1) Acute exacerbation of CHF (congestive heart failure): Mr. Multani is an 79 yo gentleman who was admitted 02/22 for dyspnea on exertion, progressive over the past 2 weeks. He was found to be volume overloaded on exam, and initiated on IV diuretic therapy. Acute systolic exacerbation of CHF (congestive heart failure): - patient saw Jeremy Rodríguez with [place] cardiology on 02/15/20 for similar symptoms, at which time his HCTZ-spironolactone dose was doubled and he was initiated on Diltiazem 120mg, daily. - Mr. Multani waited 6 days before adopting this new medication regimen, during which time his symptoms progressed - reports dry weight to be 220-225 lbs, found to be 232 lbs on admission, down to dry weight by the time of discharge - appeared volume-overloaded on admission exam - BNP elevated to >12,500 - CXR showing cardiomegaly without obvious pleural effusions - ECHO showing LV systolic function low-normal (EF = 50%), study unchanged from 03/2018 - he was treated with Lasix, IV 40mg, BID with 4 liters of direusis - recommend home lasix use, however patient said he would not use because of perceived side effects - patient will be sent home on new regimen: Start Torsemide 10mg, daily, Potassium Chloride 20meQ daily, Spironolactone 50mg daily. - he was advised to discontinue his HCTZ-Spironolactone combo medication - of note, patient is not on a beta-farida, SOLA/ARB. 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 Would not recommend starting SOLA/ARB in setting of acute rise in Creatinine due to loop direutic use - patient insists he follows a low salt diet, although non-compliance with dietary guidelines is suspected cause of acute exacerbation Outpatient items to do: Start a low-dose SOLA or ARB after Cr returns to baseline. BMP ordered for 1 week after discharge by Jeremy Rodríguez, cardiology PA-C. Reinforce dietary sodium restriction. Atrial fibrillation: - paroxysmal atrial fibrillation noted previously; in A-fib on monitor since admission - chart review indicates he has been in A-fib on many recent encounters, thus suspect this rhythm is not cause of his CHF exacerbation - rate adequately controlled without AV active drugs. - continue renally adjusted Eliquis for anticoagulation Elevated troponin: - troponin elevated on admission to 0.06, peaked at 0.08, has since downtrended - likely secondary to decompensated CHF - echocardiogram without wall motion abnormalities Coronary artery disease: - RCA bare metal stent placed in 1995. - stent patent at time of cardiac catheterization February 2006. - nonobstructive disease noted on that catheterization - patient is considered "statin intolerant;" offered Zetia at previous cardiology visit but patient declined - continue daily baby ASA Hypokalemia, resolved - level at 3.5 today - PO replacement ordered - likely secondary to loop direutic use - will add Potassium Chloride supplement 20meQ to daily regimen now that patient is leaving with a loop dieretic PAD: - s/p left common iliac artery angioplasty in July 2006 and angioplasty and stenting of his right superficial femoral artery. - Second angioplasty of the right SFA for in-stent restenosis in 2013. He had a right carotid endarterectomy performed in June 2019 as well - Continue ASA, 81mg, daily CKD, Stage 3 - baseline CR 1.5, Cr today 2.3 - due to IV loop diuretic use - renal dosing of Eliquis COPD -Continue Fluticasone/Salmeterol -Albuterol PRN (2) Elevated troponin: (3) Chronic kidney disease, stage 3 (moderate): (4) Atrial fibrillation: Total Time Total Time Spent Total Time Spent (In Minutes): >30 Discharge Plan Discharge Items Patient Disposition: Home - Self-Care Reason For Visit: SOB Discharge Diagnosis: CHF exacerbation Activity: Resume your previous activity Non-emergency contact: Primary Care Provider and Ophthalmic Surgeon Call non-emergency contact if: your symptoms worsen Follow-up/Referrals: Winnie Fletcher DO [Primary Care Provider] - Diet: Low Sodium (2gm) Addtl Attending Provider Instructions: You were hospitalized for an exacerbation of your chronic congestive heart failure (CHF). When your heart does not pump efficiency, fluid backs up from your heart to your lungs . The fluid in your lungs caused you to have a hard time breathing. The cause of your congestive heart failure exacerbation was likely from eating too much dietary sodium (or salt). We recommend limiting your salt intake in the future to less than 2 grams per day - this can be twyla llenging. Some high sodium containing foods include processed foods like chips and pretzels, deli meat, condiments like ketchup, canned soups, dressings and sauces. Cardiology was consulted during your hospital stay and made recommendations for your management. We treated your CHF exacerbation with IV diuretics, which helped remove some of the excess fluid from your body. You clinically improved while under our care. The following medication changes were made while in the hospital. Please START taking the medication torsemide 10 mg, by mouth, daily. Please STOP your Aldactazide. Please START taking Spironolactone 50mg, daily. Please START taking potassium chloride (Klor-Con), 20mg, daily. Please have your blood drawn in 1 week after discharge for your primary care doctor to monitor your electrolytes. You were in atrial fibrillation, an abnormal heart rhythm during your stay, but we suspect you heart beats in this rhythm most of the time. A-fib increases your risk of stroke, but you are already on a blood thinner to reduce this risk. The rate your heart is beating, even while in A-fib, is normal. Below are a list of additional instructions for congestive heart failure: Call 911 and go to the Emergency Room if: * You have tightness or pain in your chest that does not go away with rest or Nitroglycerin * You are very short of breath even with rest Call your doctor if any of the following symptoms or problems start or get worse: * Shortness of breath or difficulty breathing * Wake up at night short of breath * Chest pain * Cough * Swelling of your hands, fee, or legs * More fatigued or tired with your normal activity * Palpitations - sudden fast heart beats WEIGHT * Weigh yourself every morning after using the bathroom. * Use the same scale. * Wear the same amount of clothing. * Write your weight down on your chart. * Call your doctor if you gain more than 2-3 pounds in 1-2 days. MEDICATIONS * Use this discharge instruction sheet for instructions. * Take your medications at the time your doctor ordered. * Do not skip a dose of your medicines. * If you miss a dose of medicine, take as soon as possible, but DO NOT DOUBLE A DOSE. * Read your medicine information when you get home. * Know all of the side effects of your medicine. * Call your doctor's office if you have any side effects. * Be sure all of your doctors know what medicine and herbs you take (including cold, flu, and herbal medicine). * Pain Medicine: If you do not get relief from your pain, please call your doctor for help. Take the following with you to your follow-up doctor appointments: * Weight Chart * Medication List * List of questions Do not drink excessive alcohol, beer or wine. Pending Studies at Discharge: No Stand-Alone Forms: [facility] Dc Instructions, My [facility], Smoking Cessation Medications and DC Order Prescriptions: New potassium chloride [Klor-Con M20] 20 mEq Tablet,Er Particles/Crystals 20 meq PO QAM 30 Days Qty: 30 RF: 0 torsemide 10 mg tablet 10 mg PO DAILY Qty: 30 RF: 0 spironolactone 50 mg tablet 50 mg PO DAILY Qty: 30 RF: 0 Continued Advair HFA 115-21 mcg/actuation HFA aerosol inhaler 2 puffs INH BID Qty: 12 RF: 3 multivitamin tablet 1 tab PO DAILY RF: 0 apixaban 2.5 mg tablet 2.5 mg PO BID Qty: 180 RF: 1 aspirin 81 mg tablet,delayed release (DR/EC) 81 mg PO DAILY RF: 0 albuterol sulfate 90 mcg/actuation HFA aerosol inhaler 2 puffs INH Q4 PRN (Reason: shortness of breath or wheezing) RF: 0 Discontinued spironolacton-hydrochlorothiaz [Aldactazide] 25-25 mg tablet 1 tab PO .QAFTERNOON RF: 0 spironolacton-hydrochlorothiaz 25-25 mg tablet 2 tab PO QAM RF: 0 diltiazem HCl [Tiadylt ER] 120 mg capsule,extended release 24 hr 120 mg PO HS RF: 0 Discharge Orders: Discharge Order (Routine); Ordered 02/26/20 Ordered By: Gladys Barraza/Other Patient Handouts: Heart Failure Making Changes to Your Diet Admission Data Admit Date/Time: 02/23/20 20:13 Attending Provider: Javi Tovar Admit Provider: Radha Ford Primary Care Provider: Winnie Fletcher. Other Providers: Radha Ford ; Nitesh Reyes ; Tonya Combs Other Interventions: Discharge Summary Assessment (RN) Last Done: 02/26/20 13:11 DC Date/Time DO NOT enter until pt leaves facility: 02/26/20 15:19 Supervising Physician Co-Signing Physician Notes I personally examined the patient and verified all ray points of history and exam, discussed case, and agree with decision making with Dr Oro. feeling better really wants to go home. in discussion of transition to PO meds - noted "lasix doesn't work for me" - when discussing this he then realized he was improving on IV lasix here - and then noted that it was 20mg bid PO a year or so ago. also appears to be quite indiscriminant w Na intake both per him and family. extensively educated on the critical importance of Na restriction in CHF vitals noted nad heent nc at mmm breathing unlabored no accessory muscles good effort skin no rashes no pallor or icterus neuro no focal deficits acute on chronic HFpEF - probably Na intake mediated. now appearing on the dry side of euvolemic - after discussions - transition to PO lasix, close f/u w CHF clinic - repeat BMP later this week. extensively and repeatedly discussed Na re striction to pt and family who then expressed good understanding - probably would want to target no more than 1500-2000mg a day. would like to start ACEi or ARB but w CKD and currently sl dry would not be ideal at this time- hopefully in near future as creatinine levels out. also would strongly consider beta farida but ??bradycardia in the past therefore will defer to outpt team stable for home otherwise as above Resident Activity Tracking Resident Involvement: Resident Care Provided Care Provided: Adult Hospital Medicine
--- NOTE | 2020-02-26 10:54 | Cardiology Progress Note ---
Date of Service February 26, 2020 Assessment & Plan (1) Acute exacerbation of CHF (congestive heart failure): -continues on IV Lasix 40 mg b.i.d. -BUN and creatinine have increased significantly suggesting we are now at his dry weight. -weighed 229 lb this morning. -can convert to oral diuretics. -the patient refuses Lasix as this causes side effects. -could use torsemide 10 mg daily and an additional dose when necessary for weight gain. (2) Elevated troponin: -minor elevation likely related to his decompensated state at time of presentation. -echocardiogram notes low-normal systolic function, unchanged from study done in March 2018. (3) Coronary artery disease: -RCA bare metal stent placed in 1995. -stent patent at time of cath February 2006. -nonobstructive disease otherwise. (4) Atrial fibrillation: -paroxysmal atrial fibrillation diagnosed previously. -rate controlled without AV active drugs. -continue renally adjusted Eliquis. Admission and Anticipated Discharge Date Admission Date: February 23, 2020 Anticipated date of discharge: 02/25/20 Subjective The patient is resting comfortably at the bedside without complaints of chest p ain or dyspnea. Feels that he is now down to his dry weight. He is anxious for hospital discharge. Physical Exam Physical Exam: In general this is an obese white male lying supine in bed without complaints. HEENT exam is negative. Neck is supple with full carotid upstrokes. No obvious bruits. Jugular venous pressure is flat at 90. There is no thyromegaly. Cardiovascular exam reveals an irregular rhythm with distant heart sounds. No obvious murmurs. Lungs are clear without rales, rhonchi, or wheezes. Abdomen is obese without bruits. Extremities reveal intact radial artery pulses bilaterally. There is trace pretibial edema. Results & Data ([facility]) Vital Signs (Past 12 Hours) Vital Signs Temp Pulse Pulse Resp BP BP Pulse Ox 02/26/20 07:45 80 02/26/20 07:18 36.6 C 59 L 18 150/87 H 93 02/26/20 05:01 80 02/26/20 04:00 36.7 C 82 20 174/76 H 93 02/25/20 23:42 36.5 C 85 20 128/73 92 Laboratory Results BUN is elevated 47 as is the creatinine at 2.3. 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 PG Care Time/CCT Total # of Minutes Spent Total Time Spent with Patient: Total time spent is greater than 50% in coordination of care (as documented) at patient's floor/unit and/or counseling patient: Coding Level of Care Code 28947 Subseq Hosp Care Lvl 3 Diagnoses Acute exacerbation of CHF (congestive heart failure) I50.9 Heart failure type: unspecified Elevated troponin R79.89 Coronary artery disease I25.10 Coronary Disease-Associated Artery/Lesion type: [place] artery [place] vs. transplanted heart: [place] heart Associated angina: without angina Atrial fibrillation I48.91 Atrial fibrillation type: unspecified (1) Acute exacerbation of CHF (congestive heart failure) Heart failure type: unspecified Qualified Code(s): I50.9 - Heart failure, unspecified (2) Coronary artery disease Coronary Disease-Associated Artery/Lesion type: [place] artery [place] vs. transplanted heart: [place] heart Associated angina: without angina Qualified Code(s): I25.10 - Atherosclerotic heart disease of [place] coronary artery without angina pectoris (3) Atrial fibrillation Atrial fibrillation type: unspecified Qualified Code(s): I48.91 - Unspecified atrial fibrillation
--- NOTE | 2020-02-26 18:13 | Billing Data ---
Date of Service February 26, 2020 Coding Level of Care Code D/C Day Management >30 mins
== END 2020-02-26 15:19 | disposition home or self-care (01) | DRG 291 ==
LOC: ED 18:18 → 2N 20:13 → SUATTDRO 20:13 → 2N 21:01

== ENCOUNTER 2020-06-17 16:46 | Inpatient (IN) ==
--- NOTE | 2020-06-17 17:18 | Emergency Department Note ---
Impression & Plan Acute lower GI bleeding, Chronic anticoagulation, Bilateral lower extremity edema, Hematoma of right thigh, Acute pain of right hip ED Provider Note NAME: ELISSA BOOTH AGE: 79 SEX: M : 1940 ARRIVES VIA: Ambulance INFORMANT: Patient, ED PROVIDER(S): Nitesh Mendoza DO CHIEF COMPLAINT: Right hip pain HPI: The patient is an 79-year-old male who does have a history of irregular heartbeat for which he takes anticoagulation who presented to the emergency department for an evaluation of right hip pain. The patient has a history of a fall 2 weeks ago. He states that he had significant pain on the right side of his hip. He has been trying to ambulate ever since the fall but the pain is gotten much worse. He started noticing rectal bleeding today. This is why called the ambulance. He complains of significant right hip pain. He denies having any head injury. He did not strike his head. He has no loss of conscio usness. He has no chest pain or difficulty breathing. He does notice increased swelling in both lower extremities. The patient is not been seen by his primary care physician for the symptoms. He called 911 because he could not ambulate any further. He states the bleeding was moderate to severe with clots but seems to improve significantly at this time. ROS: See above HPI for pertinent positives & negatives. A total of 10 systems reviewed and were otherwise negative. PAST MEDICAL HISTORY: See Below PAST SURGICAL HISTORY: See Below FAMILY HISTORY: See Below SOCIAL HISTORY: See Below HOME MEDICATIONS: See Below ALLERGIES: See Below VITALS: See Below PHYSICAL EXAMINATION: GENERAL: Patient is awake alert in no acute distress patient is resting comfortably and showing no signs of anxiety EYES: The conjunctivae are clear. The pupils are round and reactive. EARS, NOSE, MOUTH AND THROAT: The nose is without any evidence of any deformity. Mucous membranes are moist. Tongue is midline. NECK: The neck is nontender and supple. RESPIRATORY: Diminished breath sounds are noted at both bases. There is no tachypnea or conversational dyspnea. CARDIOVASCULAR: Irregular and tachycardic rhythm was noted to auscultation. There is no definite murmur. GASTROINTESTINAL: The abdomen is soft. Abdomen is nontender. MUSCULOSKELETAL/EXTREMITIES: There is no gross deformity in either lower extremity. There is no palpable tenderness over the chest wall or either upper extremity. There is pain with any range of motion testing of the right hip. SKIN: Significant venous stasis changes are noted in both lower extremities. There is pedal edema bilaterally. There is significant ecchymosis and bruising to the right lateral hip as well as the right flank. NEUROLOGIC: Patient is awake alert and oriented x3. MEDICAL DECISION MAKING: The patient is an 79-year-old male who presented to the emergency department by ambulance for an evaluation of right hip pain. Patient had a fall approximately 2 weeks ago. The patient states he has been having worsening right hip pain and is at the point now where he cannot ambulate because of right hip pain. On physical exam he was found to have pain with range of motion testing as well as a hematoma over the right hip and the right flank. He denies having any nausea or vomiting. He has no abdominal pain on physical exam. Radiographic studies did not reveal any signs of fracture. He also started having rectal bleeding over the last 24 hours. He takes oral anticoagulation. The patient's hemoglobin was stable. His blood pressure was stable. I discussed the patient's laboratory and radiographic studies with him. He was having significant difficulty ambulating. For this reason I discussed his case with the on-call [facility] hospitalist. Triage Nursing notes reviewed. Prior medical records reviewed Vital Signs: reviewed and remarkable for no significant abnormalities Differential diagnosis: Diverticulosis, AVM, coagulopathy, colitis, inflammatory bowel disease, malignancy, Melia-Lange tear, esophagitis, peptic ulcer disease, variceal bleed, gastritis, epistaxis, fissure, hemorrhoids, as well as other pathologies. ER treatment provided: See below Diagnostics interpreted by me: ECG: EKG was obtained in the emergency department. My interpretation is atrial fibrillation at 77 bpm. Right bundle branch block pattern was noted. PVCs were noted. This was compared to a tracing from February 232019. No significant changes were noted. Cardiac Monitoring: An order was placed for continuous cardiac monitoring. The monitor shows a rate of 85 bpm with atrial fibrillation rhythm. Laboratory studies: As stated above and show below. Imaging studies: See below Consultation(s): 1914: I discussed this case with Dr. Harrington. Past Med/Surg History Medical History (Updated 06/17/20 @ 19:11 by Nitesh Mendoza DO) Anemia Anorectal fistula Arthritis Asthma Atrial fibrillation Carotid artery stenosis >70% NEHAL, <50% LICA Chronic kidney disease, stage 3 (moderate) COPD (chronic obstructive pulmonary disease) Coronary artery disease Remote h/o stent to RCA. Stent patent on 2005 cath per cardio. Degenerative arthritis of right knee Diabetes mellitus, type 2 Diastolic congestive heart failure Eczema Erectile dysfunction H/O difficult intubation Glidescope 2011 lap tracie History of pulmonary embolism (02/2011) Hyperlipidemia Hypertension On anticoagulant therapy PAD (peripheral artery disease) (03/14/14) L common iliac angioplasty/stent, stenting of totally occluded R SFA, angioplasty of occluded RCF 2006. Angioplasty to R SFA in-stent stenosis 2013. PVCs (premature ventricular contractions) Longstanding hx, asymptomatic. Started on 12.5mg Metoprolol BID during admission 03/2018, mild reduction in LV systolic function felt possibly 2/2 to frequent ectopy. Restrictive lung disease Right lower lobe pulmonary nodule Noted on CT 04/03, 12mo f/u recommended. 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/2006) R SFA [employer] and stenting S/P cataract surgery R/L S/P coronary artery stent placement (1995) RCA Status post surgery (12/15/17) placement of seton drain in transsphinteric fistula Family History Mother Thyroid disease Father Coronary heart disease Emphysema of lung Denies family history of Colon cancer Ovarian cancer Prostate cancer Myocardial infarction Breast cancer Lung cancer Colorectal cancer Social History Smoking Status: Current some day smoker Tobacco Type: Pipe Second Hand Exposure: No; Hx Alcohol Use: No Hx Substance Use: No Preferred Language: Arabic Communication Ability: Effective Visual Impairment: No Limitations Hearing Ability: Use of Hearing Aid Pulp Roller Required: No Beliefs That Will Affect Care: None marital status: / Current Living Situation: Alone current occupational status: retired How many Children do You have: 4 Feels Safe at Home: Yes Childhood Exposure to Second-Hand Smoke: No Diet Comment: regular caffeine: Yes (2-3 cups coffee) during the past year weight has: increased > 10 lbs Dental Care, Regularly: Yes Physical Activity Frequency: 1-2 Times per Week Seatbelt Use: always Sunscreen Use: Yes Assistive Devices: None Allergies Allergies Allergy/AdvReac Type Severity Reaction Status Date / Time warfarin Allergy Intermediate hives, rash Verified 06/05/20 16:11 ciprofloxacin Allergy Rash Verified 06/05/20 16:11 niacin Allergy Unknown Unverified 06/05/20 16:11 [From Niaspan Extended-Release] umeclidinium Allergy Unknown Unverified 06/05/20 16:11 [From Anoro Ellipta] vilanterol Allergy Unknown Unverified 06/05/20 16:11 [From Anoro Ellipta] Zxoustv-Onn-Tmp Reductase AdvReac Intermediate muscle Verified 06/05/20 16:11 Inhibitor weakness,pain, cramps Home Meds Home Medications Medication Instructions Recorded Confirmed aspirin 81 mg tablet,delayed 81 mg PO DAILY 09/21/19 06/05/20 release albuterol sulfate 2 puffs INH Q4 PRN 02/23/20 06/05/20 Previous Rx's Medication Instructions Recorded fluticasone propionate 115 2 puffs INH BID #12 gm 06/28/19 mcg-salmeterol 21 mcg/actuation HFA inhaler spironolactone 50 mg PO DAILY #30 tab 02/26/20 metoprolol succinate 25 mg 12.5 mg PO DAILY #30 tab 03/04/20 tablet,extended release 24 hr torsemide 20 mg tablet 20 mg PO DAILY #90 tab 03/06/20 benzonatate 100 mg capsule 100 mg PO TID PRN #20 cap 03/21/20 cholecalciferol (vitamin D3) 50 50 mcg PO DAILY #30 cap 04/12/20 mcg (2,000 unit) capsule finasteride 5 mg tablet 5 mg PO DAILY #30 tab 05/07/20 tamsulosin 0.4 mg capsule 0.4 mg PO DAILY #30 cap 05/07/20 doxycycline hyclate 100 mg tablet 100 mg PO BID 7 Days #14 tab 05/27/20 apixaban 2.5 mg tablet 2.5 mg PO BID #180 tab 06/12/20 Results & Data (ED) Vital Signs Vital Signs - 24 hr 06/17/20 16:52 06/17/20 17:25 06/17/20 17:30 Temperature 36.8 C Temperature Source Oral Pulse Rate 72 86 86 Pulse Rate from SpO2 Sensor 85 Respiratory Rate 12 13 18 Respiratory Effort / Characteristics Non-Labored Spontaneous Respiratory Depth Normal Respiratory Pattern Regular Blood Pressure 101/88 Blood Pressure Mean 92 Blood Pressure Position Lying Pulse Oximetry 99 99 94 Oxygen Delivery Method Room Air Sepsis Recent Fever Within 48 Hours No Sepsis New/Unexplained Change in Mental Status No Sepsis Action Taken by Nursing No Action Required 06/17/20 18:00 06/17/20 18:21 06/17/20 18:30 Temperature Temperature Source Pulse Rate 77 75 74 Pulse Rate from SpO2 Sensor 75 Respiratory Rate 20 21 23 Respiratory Effort / Characteristics Respiratory Depth Respiratory Pattern Blood Pressure 128/77 136/75 Blood Pressure Mean 94 88 Blood Pressure Position Pulse Oximetry 98 94 94 Oxygen Delivery Method Sepsis Recent Fever Within 48 Hours Sepsis New/Unexplained Change in Mental Status Sepsis Action Taken by Nursing 06/17/20 19:00 Temperature Temperature Source Pulse Rate 77 Pulse Rate from SpO2 Sensor 74 Respiratory Rate 18 Respiratory Effort / Characteristics Respiratory Depth Respiratory Pattern Blood Pressure 121/81 Blood Pressure Mean 95 Blood Pressure Position Pulse Oximetry 96 Oxygen Delivery Method Sepsis Recent Fever Within 48 Hours Sepsis New/Unexplained Change in Mental Status Sepsis Action Taken by Fdc Medications Current Medication List: was personally reviewed by me Laboratory Data Attestation: I reviewed the patient's lab results. Result diagrams: 06/17/20 17:28 06/17/20 17:28 Lab Results 06/17/20 06/17/20 06/17/20 Range/Units 17:28 17:28 17:28 WBC 21.94 H (4.8-10.8) K/uL RBC 4.85 (4.7-6.1) M/uL Hgb 15.5 (14.0-18.0) g/dL Hct 45.7 (42-52) % MCV 94.2 (80-100) fL MCH 32.0 (25-34) pg MCHC 33.9 (32-36) g/dL RDW Std Deviation 56.1 H (36.4-46.3) fL RDW Coeff of Anton 16.3 H (11.5-14.5) % Plt Count 206 (130-400) K/uL MPV 9.9 (7.4-10.4) fL Immature Gran % (Auto) 0.3 % Neut % (Auto) 86.6 % Lymph % (Auto) 4.8 % Arroyo % (Auto) 8.1 % Eos % (Auto) 0.1 % Baso % (Auto) 0.1 % Neut # (Auto) 18.99 H (1.4-6.5) K/uL Lymph # (Auto) 1.05 L (1.2-3.4) K/uL Arroyo # (Auto) 1.78 H (0.11-0.59) K/uL Eos # (Auto) 0.03 (0-0.5) K/uL Baso # (Auto) 0.02 (0-0.2) K/uL Immature Gran # (Auto) 0.07 H (0.00-0.02) K/uL PT 13.0 H (9.0-12.0) Seconds INR 1.2 H (0.9-1.1) APTT 35.5 H (21.0-31.0) Seconds PTT Ratio 1.3 Sodium (136-145) mmol/L Potassium (3.5-5.1) mmol/L Chloride (98-107) mmol/L Carbon Dioxide (21-32) mmol/L Anion Gap (3-11) BUN (7-18) mg/dl Creatinine (0.6-1.4) mg/dl Est Cr Clr Drug Dosing ml/min Est GFR ( Amer) Est GFR (Non-Af Amer) BUN/Creatinine Ratio (10-20) Glucose (70-99) mg/dl Calcium (8.5-10.1) mg/dl Total Bilirubin (0.2-1) mg/dl AST (15-37) U/L ALT (12-78) U/L Alkaline Phosphatase (45-117) U/L Troponin I (0-0.045) ng/ml Total Protein (6.4-8.2) gm/dl Albumin (3.4-5.0) gm/dl Globulin (2.5-4.0) gm/dl Albumin/Globulin Ratio (0.9-2) Lipase (73-393) U/L Blood Type A Positive Antibody Screen NEGATIVE 06/17/20 Range/Units 17:28 WBC (4.8-10.8) K/uL RBC (4.7-6.1) M/uL Hgb (14.0-18.0) g/dL Hct (42-52) % MCV (80-100) fL MCH (25-34) pg MCHC (32-36) g/dL RDW Std Deviation (36.4-46.3) fL RDW Coeff of Anton (11.5-14.5) % Plt Count (130-400) K/uL MPV (7.4-10.4) fL Immature Gran % (Auto) % Neut % (Auto) % Lymph % (Auto) % Arroyo % (Auto) % Eos % (Auto) % Baso % (Auto) % Neut # (Auto) (1.4-6.5) K/uL Lymph # (Auto) (1.2-3.4) K/uL Arroyo # (Auto) (0.11-0.59) K/uL Eos # (Auto) (0-0.5) K/uL Baso # (Auto) (0-0.2) K/uL Immature Gran # (Auto) (0.00-0.02) K/uL PT (9.0-12.0) Seconds INR (0.9-1.1) APTT (21.0-31.0) Seconds PTT Ratio Sodium 132 L (136-145) mmol/L Potassium 3.8 (3.5-5.1) mmol/L Chloride 95 L (98-107) mmol/L Carbon Dioxide 31 (21-32) mmol/L Anion Gap 6.0 (3-11) BUN 38 H (7-18) mg/dl Creatinine 1.85 H (0.6-1.4) mg/dl Est Cr Clr Drug Dosing 39.2 ml/min Est GFR ( Amer) 38.7 Est GFR (Non-Af Amer) 33.4 BUN/Creatinine Ratio 20.4 H (10-20) Glucose 114 H (70-99) mg/dl Calcium 8.6 (8.5-10.1) mg/dl Total Bilirubin 2.1 H (0.2-1) mg/dl AST 19 (15-37) U/L ALT 21 (12-78) U/L Alkaline Phosphatase 109 (45-117) U/L Troponin I 0.051 H* (0-0.045) ng/ml Total Protein 7.1 (6.4-8.2) gm/dl Albumin 2.5 L (3.4-5.0) gm/dl Globulin 4.6 H (2.5-4.0) gm/dl Albumin/Globulin Ratio 0.5 L (0.9-2) Lipase 83 (73-393) U/L Blood Type Antibody Screen Imaging Data Radiologist's Impression: Patient: ELISSA BOOTH Admit Date: 06/17/20 MR#: [id number] Address1: [address] Acct ID:[id number] Address2: Date: 1940 [facility] Zip: [place] [id number] Age: 79 Location: ED Sex: M Room/Bed: Att Phy: Diagnosis: GI BLEED Franca Phy: Winnie Fletcher DO Service Date: 06/17/20 Fam Phy: Interpreting Phy: Dionte Altman MD Admit Phy: Ordering Phy: Nitesh Mendoza DO cc: ~ SINGLE VIEW CHEST CLINICAL HISTORY: Fall. FINDINGS: 2 AP, portable, upright chest radiographs are compared to study dated 02/23/2020. Correlation is made with chest CT dated 04/03/2018. The examination is degraded by portable technique, apical lordotic positioning, and patient rotation. The heart is enlarged noting atherosclerotic calcification of the thoracic aorta. The pulmonary vasculature is noncongested. Chronic interstitial thickening is similar to previous. Calcified pleural plaques are again noted on the left. There is mild elevation of right hemidiaphragm. No airspace consolidation, large pleural effusion, or pneumothorax is seen. The skeletal structures are osteopenic. There are healed left-sided rib fractures. Arthritic change is noted in the shoulders. IMPRESSION: Cardiomegaly with no acute cardiopulmonary abnormality. ACT 112: Negative or not required by law. Electronically signed by: Dionte Altman M.D. 06/17/2020 6:39 PM Dictated: 06/17/201837 Transcribed: 06/17/201837 Patient: ELISSA BOOTH Admit Date: 06/17/20 MR#: [id number] Address1: [address] [facility] [address] Acct ID:[id number] Address2: Date: 1940 [facility] Zip: [place] [address] Age: 79 Location: ED Sex: M Room/Bed: Att Phy: Diagnosis: GI BLEED Franca Phy: Winnie Fletcher DO Service Date: 06/17/20 Gil Phy: Interpreting Phy: Dionte Altman MD Admit Phy: Ordering Phy: Nitesh Mendoza DO cc: ~ KUB CLINICAL HISTORY: Fall. FINDINGS: 3 AP supine abdominal radiographs are correlated with abdominal CT dated 07/11/2018. Cholecystectomy clips are seen in the right upper quadrant. There is a nonobstructed abdominal bowel gas pattern. No evidence of intraperitoneal free air is seen on these supine images. Moderate fecal retention is noted in the right colon. Advanced atherosclerotic calcification is noted in the abdominal aorta. Vascular stents are seen in the right iliac and right femoral arteries. Phleboliths are observed in the pelvis. The skeletal structures are osteopenic. There is advanced with sacral spondylosis and mild scoliosis. Bilateral hip arthroplasties are in place. There are healed left- sided rib fractures. IMPRESSION: Nonobstructed abdominal bowel gas pattern. Electronically signed by: Dionte Altman M.D. 06/17/2020 6:37 PM Dictated: 06/17/201834 Transcribed: 06/17/201834 Patient: ELISSA BOOTH Admit Date: 06/17/20 MR#: [id number] Address1: [address] [place] [address] Acct ID:[id number] Address2: Date: 1940 [facility] Zip: [place] [address] Age: 79 Location: ED Sex: M Room/Bed: Att Phy: Diagnosis: GI BLEED Franca Phy: Winnie Fletcher DO Service Date: 06/17/20 Gil Phy: Interpreting Phy: Dionte Altman MD Admit Phy: Ordering Phy: Nitesh Mendoza DO cc: ~ SINGLE VIEW PELVIS; 2 VIEWS RIGHT HIP CLINICAL HISTORY: Fall. Right hip pain. FINDINGS: 2 AP views of the pelvis with AP and frog-leg views of the right hip are obtained. No prior studies are available for comparison at the time of dictation. The skeletal structures are osteopenic. There is no radiographic evidence of acute fracture involving the hips or bony pelvis. Bilateral hip arthroplasties are in near-anatomic alignment. No periprosthetic lucency is seen. Sclerotic change is noted in the sacroiliac joints. Advanced lumbosacral spondylosis is partially imaged. Mild soft tissue contusion overlies the right hip. Advanced atherosclerotic calcification is noted in the femoral arteries. Vascular stents are seen on the right. There are numerous pelvic phleboliths. IMPRESSION: 1. No acute bony abnormality is identified. 2. Bilateral hip arthroplasties are in place. 3. Soft tissue contusion overlies the right hip. Electronically signed by: Dionte Altman M.D. 06/17/2020 6:34 PM Dictated: 06/17/201831 Transcribed: 06/17/201831 Blood Pressure Blood Pressure Findings: Normal blood pressure Discharge Plan Visit Data Chief Complaint: Rectal Bleed Stated Complaint: GI BLEED ED Provider: Nitesh Mendoza Discharge Problem: Acute lower GI bleeding, Chronic anticoagulation, Bilateral lower extremity edema, Hematoma of right thigh, Acute pain of right hip Patient Disposition: Being Evaluated by Hospitalist Condition: Good Forms Stand Alone Forms: [facility] [employer] Prescriptions Prescriptions: No Action torsemide 20 mg tablet 20 mg PO DAILY Qty: 90 RF: 3 cholecalciferol (vitamin D3) 50 mcg (2,000 unit) capsule 50 mcg PO DAILY Qty: 30 RF: 0 doxycycline hyclate 100 mg tablet 100 mg PO BID 7 Days Qty: 14 RF: 0 Eliquis 2.5 mg tablet 2.5 mg PO BID Qty: 180 RF: 3 Advair HFA 115-21 mcg/actuation HFA aerosol inhaler 2 puffs INH BID Qty: 12 RF: 3 metoprolol succinate 25 mg tablet extended release 24 hr 12.5 mg PO DAILY Qty: 30 RF: 0 benzonatate [Tessalon Perles] 100 mg capsule 100 mg PO TID PRN (Reason: cough) Qty: 20 RF: 3 tamsulosin 0.4 mg capsule 0.4 mg PO DAILY Qty: 30 RF: 1 finasteride 5 mg tablet 5 mg PO DAILY Qty: 30 RF: 2 aspirin 81 mg tablet,delayed release (/EC) 81 mg PO DAILY RF: 0 albuterol sulfate 90 mcg/actuation HFA aerosol inhaler 2 puffs INH Q4 PRN (Reason: shortness of breath or wheezing) RF: 0 spironolactone 50 mg tablet 50 mg PO DAILY Qty: 30 RF: 0 Referrals Referrals: Winnie Fletcher DO [Primary Care Provider] - Discharge Problem: Hematoma of right thigh Qualifiers: Encounter type: initial encounter Qualified Code(s): S70.11XA - Contusion of right thigh, initial encounter
[2020-06-17 17:41] LABS: Basophils # (auto) 0.02 K/uL (0-0.2); Basophils % (auto) 0.1 %; Eosinophils # (auto) 0.03 K/uL (0-0.5); Eosinophils % (auto) 0.1 %; Hematocrit (blood only) 45.7 % (42-52); Hemoglobin 15.5 g/dL (14.0-18.0); Immature Granulocytes # (auto) 0.07 K/uL (0.00-0.02); Immature Granulocytes % (auto) 0.3 %; Lymphocytes # (auto) 1.05 K/uL (1.2-3.4); Lymphocytes % (auto) 4.8 %; Mean Corpuscular Hgb Conc 33.9 g/dL (32-36); Mean Corpuscular Volume 94.2 fL (80-100); Mean Platelet Volume 9.9 fL (7.4-10.4); Monocytes # (auto) 1.78 K/uL (0.11-0.59); Monocytes % (auto) 8.1 %; Neutrophils # (auto) 18.99 K/uL (1.4-6.5); Neutrophils % (auto) 86.6 %; Platelet Count 206 K/uL (130-400); RDW Coefficient of Variation 16.3 % (11.5-14.5); RDW Standard Deviation 56.1 fL (36.4-46.3); Red Blood Count 4.85 M/uL (4.7-6.1); White Blood Count 21.94 K/uL (4.8-10.8)
[2020-06-17 17:59] LABS: INR 1.2 (0.9-1.1); Partial Thromboplastin Ratio 1.3; Partial Thromboplastin Time 35.5 Seconds (21.0-31.0)
[2020-06-17 18:01] LABS: Albumin Level 2.5 gm/dl (3.4-5.0); BUN Creatinine Ratio 20.4 (10-20); Calcium 8.6 mg/dl (8.5-10.1); Creatinine Clr Calc Pharmacy 39.2 ml/min; Est GFR (African American) 38.7; Est GFR (Non-African American) 33.4; Potassium 3.8 mmol/L (3.5-5.1)
[2020-06-17 18:11] LABS: Albumin Globulin Ratio 0.5 (0.9-2); Bilirubin,Total 2.1 mg/dl (0.2-1); Globulin 4.6 gm/dl (2.5-4.0); Total Protein 7.1 gm/dl (6.4-8.2); Troponin I 0.051 ng/ml (0-0.045)
--- NOTE | 2020-06-17 18:36 | XRay Report ---
SINGLE VIEW PELVIS; 2 VIEWS RIGHT HIP CLINICAL HISTORY: Fall. Right hip pain. FINDINGS: 2 AP views of the pelvis with AP and frog-leg views of the right hip are obtained. No prior studies are available for comparison at the time of dictation. The skeletal structures are osteopeni c. There is no radiographic evidence of acute fracture involving the hips or bony pelvis. Bilateral h ip arthroplasties are in near-anatomic alignment. No periprosthetic lucency is seen. Sclerotic change is noted in the sacroiliac joints. Advanced lumbosacral spondylosis is partially imaged. Mild soft t issue contusion overlies the right hip. Advanced atherosclerotic calcification is noted in the femora l arteries. Vascular stents are seen on the right. There are numerous pelvic phleboliths. IMPRESSION: 1. No acute bony abnormality is identified. 2. Bilateral hip arthroplasties are in place. 3. Soft tissue contusion overlies the right hip. Electronically signed by: Dionte Altman M.D. 06/17/2020 6:34 PM
--- NOTE | 2020-06-17 18:38 | XRay Report ---
KUB CLINICAL HISTORY: Fall. FINDINGS: 3 AP supine abdominal radiographs are correlated with abdominal CT dated 07/11/2018. Cholec ystectomy clips are seen in the right upper quadrant. There is a nonobstructed abdominal bowel gas pa ttern. No evidence of intraperitoneal free air is seen on these supine images. Moderate fecal retenti on is noted in the right colon. Advanced atherosclerotic calcification is noted in the abdominal aort a. Vascular stents are seen in the right iliac and right femoral arteries. Phleboliths are observed i n the pelvis. The skeletal structures are osteopenic. There is advanced with sacral spondylosis and m ild scoliosis. Bilateral hip arthroplasties are in place. There are healed left-sided rib fractures. IMPRESSION: Nonobstructed abdominal bowel gas pattern. Electronically signed by: Dionte Altman M.D. 06/17/2020 6:37 PM
--- NOTE | 2020-06-17 18:41 | XRay Report ---
SINGLE VIEW CHEST CLINICAL HISTORY: Fall. FINDINGS: 2 AP, portable, upright chest radiographs are compared to study dated 02/23/2020. Correlatio n is made with chest CT dated 04/03/2018. The examination is degraded by portable technique, apical katelyn dotic positioning, and patient rotation. The heart is enlarged noting atherosclerotic calcification o f the thoracic aorta. The pulmonary vasculature is noncongested. Chronic interstitial thickening is s imilar to previous. Calcified pleural plaques are again noted on the left. There is mild elevation of right hemidiaphragm. No airspace consolidation, large pleural effusion, or pneumothorax is seen. The skeletal structures are osteopenic. There are healed left-sided rib fractures. Arthritic change is n oted in the shoulders. IMPRESSION: Cardiomegaly with no acute cardiopulmonary abnormality. ACT 112: Negative or not required by law. Electronically signed by: Dionte Altman M.D. 06/17/2020 6:39 PM
--- NOTE | 2020-06-17 21:38 | History & Physical Report ---
Date of Service June 17, 2020 Assessment & Plan (1) Acute lower GI bleeding: Acute lower GI bleeding/bright red blood per rectum/history of recurrent anorectal fistula requiring surgery- Reports history of hemorrhoids He notes that the bleeding began after a bowel movement with hard stools. He notes that he is scheduled to have colonoscopy with Dr. Scales sometime in June. NPO Pantoprazole 40 mg IV daily H&H every 6 hours Hold apixaban, no need to reverse at this time. Hold aspirin. He reports no current drainage of previous fistula Consult gastroenterology Dr. Scales Present on Admission?: Yes (2) Anorectal fistula: Patient reports having had several surgeries in the past, with most recently by Dr. Oliveira. No recent drainage noted. Present on Admission?: Yes (3) History of pulmonary embolism: History of pulmonary embolism on chronic anticoagulation with apixaban- Hold apixaban temporarily due to GI bleeding. Present on Admission?: Yes (4) Chronic anticoagulation: See above Present on Admission?: Yes (5) Bilateral lower extremity edema: May be secondary to decreased physical activity associated with right hip pain. Hold diuretics and IV fluids for now. He will be n.p.o. overnight, and reassess in the morning Present on Admission?: Yes (6) Hematoma of right thigh: Holding anticoagulation as noted above Present on Admission?: Yes (7) Acute pain of right hip: Secondary to hematoma and fall from 2 weeks ago. Negative x-rays tonight. Present on Admission?: Yes (8) Elevated troponin: Elevated troponin/CAD/diastolic CHF/HFpEF- The patient will be admitted to telemetry for serial cardiac enzymes, serial EKG's, cardiac rhythm monitoring and a 2-D echocardiogram with Dopplers. Troponin upon admission 0.051. Most recent troponin on 02/24/2020 was 0.075 Continue metoprolol succinate 12.5 mg daily. Holding aspirin as noted above. Hold torsemide Present on Admission?: Yes (9) Diastolic congestive heart failure: See above Present on Admission?: Yes (10) Chronic kidney disease, stage 3 (moderate): Creatinine 1.85 upon admission, with range 2.01-2.30. Follow serially Present on Admission?: Yes History of Present Illness Chief Complaint: The patient presents to the emergency department with concerns regarding bright red blood per rectum, lower extremity edema, and acute pain of right hip. Primary Care Provider: Winnie Fletcher DO The patient is an 79-year-old male with a past medical history including diabetes mellitus type 2, elevated troponin, hypervolemia, chronic anticoagulation, history of pulmonary embolism, right knee osteoarthritis, hyperlipidemia, ED, anorectal fistula, HFpEF, CKD stage III, carotid artery stenosis, atrial fibrillation, asthma, hypertension, restrictive lung disease, subclavian artery stenosis, right ICA stenosis, right lower lobe pulmonary nodule, COPD, CAD, PVCs and PAD. He presents with symptoms as noted above, and reports a fall 2 weeks ago and since that time has had pain in his right hip. He has not been as physically active due to this pain, and has not been seen by his PCP for the symptoms Allergies Allergy/AdvReac Type Severity Reaction Status Date / Time warfarin Allergy Intermediate hives, rash Verified 06/17/20 19:44 ciprofloxacin Allergy Unknown Rash Verified 06/17/20 19:44 niacin Allergy Unknown Unknown Verified 06/17/20 19:44 [From Niaspan Extended-Release] umeclidinium Allergy Unknown Unknown Verified 06/17/20 19:44 [From Anoro Ellipta] vilanterol Allergy Unknown Unknown Verified 06/17/20 19:44 [From Anoro Ellipta] Puzfpir-Vhv-Rub Reductase AdvReac Intermediate muscle Verified 06/17/20 19:44 Inhibitor weakness,pain, cramps Home Medications Medication Instructions Recorded Confirmed Type aspirin 81 mg tablet,delayed 81 mg PO DAILY 09/21/19 06/17/20 History release metoprolol succinate 25 mg 12.5 mg PO DAILY #30 tab 03/04/20 06/17/20 Rx tablet,extended release 24 hr cholecalciferol (vitamin D3) 50 50 mcg PO DAILY #30 cap 04/12/20 06/17/20 Rx mcg (2,000 unit) capsule finasteride 5 mg tablet 5 mg PO DAILY #30 tab 05/07/20 06/17/20 Rx tamsulosin 0.4 mg capsule 0.4 mg PO DAILY #30 cap 05/07/20 06/17/20 Rx apixaban 2.5 mg tablet 2.5 mg PO BID #180 tab 06/12/20 06/17/20 Rx torsemide 10 mg PO BID 06/17/20 06/17/20 History Past Med/Surg History Medical History (Updated 06/17/20 @ 19:11 by Nitesh Mendoza DO) Anemia Anorectal fistula Arthritis Asthma Atrial fibrillation Carotid artery stenosis >70% NEHAL, <50% LICA Chronic kidney disease, stage 3 (moderate) COPD (chronic obstructive pulmonary disease) Coronary artery disease Remote h/o stent to RCA. Stent patent on 2005 cath per cardio. Degenerative arthritis of right knee Diabetes mellitus, type 2 Diastolic congestive heart failure Eczema Erectile dysfunction H/O difficult intubation Glidescope 2011 lap tracie History of pulmonary embolism (02/2011) Hyperlipidemia Hypertension On anticoagulant therapy PAD (peripheral artery disease) (03/14/14) L common iliac angioplasty/stent, stenting of totally occluded R SFA, angioplasty of occluded RCF 2006. Angioplasty to R SFA in-stent stenosis 2013. PVCs (premature ventricular contractions) Longstanding hx, asymptomatic. Started on 12.5mg Metoprolol BID during admission 03/2018, mild reduction in LV systolic function felt possibly 2/2 to frequent ectopy. Restrictive lung disease Right lower lobe pulmonary nodule Noted on CT 04/03, 12mo f/u recommended. 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/2006) R SFA [employer] and stenting S/P cataract surgery R/L S/P coronary artery stent placement (1995) RCA Status post surgery (12/15/17) placement of seton drain in transsphinteric fistula Family History Mother Thyroid disease Father Coronary heart disease Emphysema of lung Denies family history of Colon cancer Ovarian cancer Prostate cancer Myocardial infarction Breast cancer Lung cancer Colorectal cancer Social History Smoking Status: Current some day smoker Tobacco Type: Pipe Second Hand Exposure: No; Hx Alcohol Use: No Hx Substance Use: No Preferred Language: German Communication Ability: Effective Visual Impairment: No Limitations Hearing Ability: Use of Hearing Aid Elephant Keeper Required: No Beliefs That Will Affect Care: None marital status: / Current Living Situation: Alone current occupational status: retired How many Children do You have: 4 Other Information That Helps Us Care for You: No Feels Safe at Home: Yes Safety Concerns: Feels Safe At This Time Childhood Exposure to Second-Hand Smoke: No Diet Comment: regular caffeine: Yes (2-3 cups coffee) during the past year weight has: increased > 10 lbs Dental Care, Regularly: Yes Physical Activity Frequency: 1-2 Times per Week Seatbelt Use: always Sunscreen Use: Yes Assistive Devices: Glasses Review of Systems Review of Systems: The patient denies chest pain, palpitations, shortness of breath, dyspnea on exertion, cough, sore throat, fevers, chills, sweats, weight change, fatigue, nausea, vomiting, diarrhea , constipation, abdominal pain, pelvic pain, blood in urine or stool, dysuria, urinary frequency or urgency, lightheadedness, dizziness, headache, memory loss, loss of consciousness, focal weakness, numbness or tingling in arms or legs, neck pain, or night sweats. The review of systems is otherwise negative other than for that already noted above, and at least 10 systems have been reviewed. Physical Exam Physical Exam: The patient is awake, alert and oriented 3, well developed and well nourished, normocephalic and atraumatic, lying in bed and in no acute distress. HEENT--PERRL, EOMI, mucous membranes and oropharynx normal. Neck--supple. No JVD. No bruits. Thyroid normal, trachea midline, no adenopathy. Heart--normal S1 and S2. No murmurs, rubs or gallops. Lungs--clear bilaterally, no respiratory distress, no accessory muscle use. Abdomen--normal bowel sounds and soft. Nontender. Nondistended Extremities--no cyanosis or clubbing. 1+ bilateral pretibial pitting edema. Dermatologic--normal skin turgor. Ecchymosis right hip Neurologic--cranial nerves II through XII grossly intact. Rheumatologic--decreased range of motion of right hip area due to pain Psychiatric--normal affect. Results & Data Results & Data ([facility]) Vital Signs (Past 12 Hours) Vital Signs Temp Pulse Resp BP Pulse Ox 06/17/20 20:31 75 21 139/74 91 06/17/20 20:00 75 22 123/73 95 06/17/20 19:30 78 20 132/76 94 06/17/20 19:00 77 18 121/81 96 06/17/20 18:30 74 23 136/75 94 06/17/20 18:21 75 21 128/77 94 06/17/20 18:00 77 20 98 06/17/20 17:30 86 18 94 06/17/20 17:25 86 13 99 06/17/20 16:52 98.2 F 72 12 101/88 99 Laboratory Results Laboratory Results WBC 21.94 K/uL (4.8-10.8) H 06/17/20 17:28 RBC 4.85 M/uL (4.7-6.1) 06/17/20 17:28 Hgb 15.5 g/dL (14.0-18.0) 06/17/20 23:00 Hct 45.5 % (42-52) 06/17/20 23:00 MCV 94.2 fL (80-100) 06/17/20 17:28 MCH 32.0 pg (25-34) 06/17/20 17:28 MCHC 33.9 g/dL (32-36) 06/17/20 17:28 RDW Std Deviation 56.1 fL (36.4-46.3) H 06/17/20 17:28 RDW Coeff of Anton 16.3 % (11.5-14.5) H 06/17/20 17:28 Plt Count 206 K/uL (130-400) 06/17/20 17:28 MPV 9.9 fL (7.4-10.4) 06/17/20 17:28 Immature Gran % (Auto) 0.3 % 06/17/20 17:28 Neut % (Auto) 86.6 % 06/17/20 17: Lymph % (Auto) 4.8 % 06/17/20 17:28 Kay % (Auto) 8.1 % 06/17/20 17:28 Eos % (Auto) 0.1 % 06/17/20 17:28 Baso % (Auto) 0.1 % 06/17/20 17:28 Neut # (Auto) 18.99 K/uL (1.4-6.5) H 06/17/20 17: Lymph # (Auto) 1.05 K/uL (1.2-3.4) L 06/17/20: Kay # (Auto) 1.78 K/uL (0.11-0.59) H 06/17/20 17: Eos # (Auto) 0.03 K/uL (0-0.5) 06/17/20: Baso # (Auto) 0.02 K/uL (0-0.2) 06/17/20: Immature Gran # (Auto) 0.07 K/uL (0.00-0.02) H 06/17/20: PT 13.0 Seconds (9.0-12.0) H 06/17/20: INR 1.2 (0.9-1.1) H 06/17/20: APTT 35.5 Seconds (21.0-31.0) H 06/17/20: PTT Ratio 1.3 06/17/20: Sodium 132 mmol/L (136-145) L 06/17/20: Potassium 3.8 mmol/L (3.5-5.1) 06/17/20: Chloride 95 mmol/L (98-107) L 06/17/20: Carbon Dioxide 31 mmol/L (21-32) 06/17/20: Anion Gap 6.0 (3-11) 06/17/20: BUN 38 mg/dl (7-18) H 06/17/20: Creatinine 1.85 mg/dl (0.6-1.4) H 06/17/20: Est Cr Clr Drug Dosing 39.2 ml/min 06/17/20: Est GFR ( Amer) 38.7 06/17/20: Est GFR (Non-Af Amer) 33.4 06/17/20: BUN/Creatinine Ratio 20.4 (10-20) H 06/17/20: Glucose 114 mg/dl (70-99) H 06/17/20: Calcium 8.6 mg/dl (8.5-10.1) 06/17/20 17:28 Total Bilirubin 2.1 mg/dl (0.2-1) H 06/17/20 17:28 AST 19 U/L (15-37) 06/17/20 17:28 ALT 21 U/L (12-78) 06/17/20 17:28 Alkaline Phosphatase 109 U/L (45-117) 06/17/20 17:28 Troponin I 0.051 ng/ml (0-0.045) H* 06/17/20 17:28 Total Protein 7.1 gm/dl (6.4-8.2) 06/17/20 17:28 Albumin 2.5 gm/dl (3.4-5.0) L 06/17/20 17: Globulin 4.6 gm/dl (2.5-4.0) H 06/17/20 17:28 Albumin/Globulin Ratio 0.5 (0.9-2) L 06/17/20 17: Lipase 83 U/L (73-393) 06/17/20 17:28 Urine Color Dark Yellow 06/17/20 21:47 Urine Appearance Clear (Clear) 06/17/20 21:47 Urine pH 5.0 (4.5-7.5) 06/17/20 21:47 Ur Specific [place] 1.018 (1.000-1.030) 06/17/20 21:47 Urine Protein 1+ (Negative) H 06/17/20 21:47 Urine Glucose (UA) Negative (Negative) 06/17/20 21:47 Urine Ketones Negative (Negative) 06/17/20 21:47 Urine Blood 1+ (Negative) H 06/17/20 21:47 Urine Nitrite Negative (Negative) 06/17/20 21:47 Urine Bilirubin Negative (Negative) 06/17/20 21:47 Urine Urobilinogen Negative (Negative) 06/17/20 21:47 Ur Leukocyte Esterase Negative (Negative) 06/17/20 21:47 Urine WBC (Auto) 1-5 /hpf (0-5) 06/17/20 21:47 Urine RBC (Auto) 0-4 /hpf (0-4) 06/17/20 21:47 U Hyaline Cast (Auto) 1-5 /lpf (0-5) 06/17/20 21:47 U Epithel Cells (Auto) 5-10 /lpf (0-5) H 06/17/20 21:47 Urine Bacteria (Auto) Negative (Negative) 06/17/20 21:47 SARS-CoV-2 Ag (Rapid) Negative (Negative) 06/17/20 Unknown Blood Type A Positive 06/17/20 17:28 Antibody Screen NEGATIVE 06/17/20 17:28 Diagnostic Findings [facility], [id number] XRay Report Patient: ELISSA BOOTH AAdmit Date: 06/17/20MR#: [id number]: [address]Acct ID:[id number]: Date: 1940City Zip: [place] [address]: 79Location: EDSex: MRoom/Bed:Att Phy:Diagnosis: GI BLEEDPri Phy: Winnie Fletcher, DOService Date: 06/17/20Fa Phy:Interpreting Phy: Dionte Altman MDAdmit Phy: Ordering Phy: Nitesh Mendoza DO cc: ~ SINGLE VIEW PELVIS; 2 VIEWS RIGHT HIP CLINICAL HISTORY: Fall. Right hip pain. FINDINGS: 2 AP views of the pelvis with AP and frog-leg views of the right hip are obtained. No prior studies are available for comparison at the time of dictation. The skeletal structures are osteopenic. There is no radiographic evidence of acute fracture involving the hips or bony pelvis. Bilateral hip arthroplasties are in near-anatomic alignment. No periprosthetic lucency is seen. Sclerotic change is noted in the sacroiliac joints. Advanced lumbosacral spondylosis is partially imaged. Mild soft tissue contusion overlies the right hip. Advanced atherosclerotic calcification is noted in the femoral arteries. Vascular stents are seen on the right. There are numerous pelvic phleboliths. IMPRESSION: 1. No acute bony abnormality is identified. 2. Bilateral hip arthroplasties are in place. 3. Soft tissue contusion overlies the right hip. Electronically signed by: Dionte Altman M.D. 06/17/2020 6:34 PM Dictated: 06/17/201831Transcribed: 06/17/201831 [facility], [id number] XRay Report Patient: ELISSA BOOTH AAdmit Date: 06/17/20MR#: [id number]: [address]Acct ID:[id number]: Date: 1940[facility] Zip: [place] [address]: 79Location: EDSex: MRoom/Bed:Att Phy:Diagnosis: GI BLEEDPri Phy: Winnie Fletcher, DOService Date: 06/17/20Fa Phy:Interpreting Phy: Dionte Altman MDAdmit Phy: Ordering Phy: Nitesh Mendoza DO cc: Frantz DAILEY CLINICAL HISTORY: Fall. FINDINGS: 3 AP supine abdominal radiographs are correlated with abdominal CT dated 07/11/2018. Cholecystectomy clips are seen in the right upper quadrant. There is a nonobstructed abdominal bowel gas pattern. No evidence of intraperitoneal free air is seen on these supine images. Moderate fecal retention is noted in the right colon. Advanced atherosclerotic calcification is noted in the abdominal aorta. Vascular stents are seen in the right iliac and right femoral arteries. Phleboliths are observed in the pelvis. The skeletal structures are osteopenic. There is advanced with sacral spondylosis and mild scoliosis. Bilateral hip arthroplasties are in place. There are healed left- sided rib fractures. IMPRESSION: Nonobstructed abdominal bowel gas pattern. Electronically signed by: Dionte Altman M.D. 06/17/2020 6:37 PM Dictated: 06/17/201834Transcribed: 06/17/20 183 [facility], [id number] XRay Report Patient: ELISSA BOOTH AAdmit Date: 06/17/20MR#: [id number]: [address]Acct ID:[id number]: Date: 1940[facility] Zip: [place] [address]Ygj: 79Location: EDSex: MRoom/Bed:Att Phy:Diagnosis: GI BLEEDPri Phy: Winnie Fletcher, DOService Date: 06/17/20Fam Phy:Interpreting Phy: Dionte Altman MDAdmit Phy: Ordering Phy: Nitesh Mendoza DO cc: ~ SINGLE VIEW CHEST CLINICAL HISTORY: Fall. FINDINGS: 2 AP, portable, upright chest radiographs are compared to study dated 02/23/2020. Correlation is made with chest CT dated 04/03/2018. The examination is degraded by portable technique, apical lordotic positioning, and patient rotation. The heart is enlarged noting atherosclerotic calcification of the thoracic aorta. The pulmonary vasculature is noncongested. Chronic interstitial thickening is similar to previous. Calcified pleural plaques are again noted on the left. There is mild elevation of right hemidiaphragm. No airspace consolidation, large pleural effusion, or pneumothorax is seen. The skeletal structures are osteopenic. There are healed left-sided rib fractures. Arthritic change is noted in the shoulders. IMPRESSION: Cardiomegaly with no acute cardiopulmonary abnormality. ACT 112: Negative or not required by law. Electronically signed by: Dionte Altman M.D. 06/17/2020 6:39 PM Dictated: 06/17/201837Transcribed: 06/17/201837 Code Status & VTE Plan Code Status Full code VTE Prophylaxis Plan VTE Prophylaxis will be ordered: Yes PG Care Time/CCT Total # of Minutes Spent Total Time Spent with Patient: Total time spent is greater than 50% in coordination of care (as documented) at patient's floor/unit and/or counseling patient: Coding Level of Care Code 95021 Initial Inpt Care Lvl 3 Diagnoses Acute lower GI bleeding K92.2 Anorectal fistula K60.5 History of pulmonary embolism Z86.711 Chronic anticoagulation Z79.01 Bilateral lower extremity edema R60.0 Hematoma of right thigh S70.11XA Encounter type: initial encounter Acute pain of right hip M25.551 Elevated troponin R79.89 Diastolic congestive heart failure I50.30 Chronic kidney disease, stage 3 (moderate) N18.3 (1) Hematoma of right thigh Encounter type: initial encounter Qualified Code(s): S70.11XA - Contusion of right thigh, initial encounter
[2020-06-17 22:04] LABS: Appearance Urine Clear (Clear); Bacteria Urine Automated Negative (Negative); Bilirubin Urine Negative (Negative); Blood Urine 1+ (Negative); Color Urine Dark Yellow; Glucose Urine UA Negative (Negative); Ketones Urine Negative (Negative); Leukocyte Esterase Urine Negative (Negative); Nitrite Urine Negative (Negative); Protein Urine 1+ (Negative); RBC Urine Automated 0-4 /hpf (0-4); Specific Gravity Urine 1.018 (1.000-1.030); Urobilinogen Urine Negative (Negative)
[2020-06-17] MEDS ORDERED: ONDANSETRON INJ 2 MG/ML 2 ML VIAL IV PRN (22:38)
[2020-06-17 23:24] LABS: Hematocrit (blood only) 45.5 % (42-52); Hemoglobin 15.5 g/dL (14.0-18.0)
[2020-06-17] MEDS: MELATONIN 3 MG TAB PO PRN (23:28)
[2020-06-18 05:09] LABS: Basophils # (auto) 0.02 K/uL (0-0.2); Basophils % (auto) 0.1 %; Eosinophils # (auto) 0.22 K/uL (0-0.5); Eosinophils % (auto) 1.6 %; Hematocrit (blood only) 43.7 % (42-52); Hemoglobin 14.8 g/dL (14.0-18.0); Immature Granulocytes # (auto) 0.03 K/uL (0.00-0.02); Immature Granulocytes % (auto) 0.2 %; Lymphocytes # (auto) 1.51 K/uL (1.2-3.4); Lymphocytes % (auto) 11.2 %; Mean Corpuscular Hgb Conc 33.9 g/dL (32-36); Mean Corpuscular Volume 94.6 fL (80-100); Monocytes # (auto) 1.16 K/uL (0.11-0.59); Monocytes % (auto) 8.6 %; Neutrophils % (auto) 78.3 %; Platelet Count 221 K/uL (130-400); RDW Coefficient of Variation 16.5 % (11.5-14.5); RDW Standard Deviation 56.4 fL (36.4-46.3); Red Blood Count 4.62 M/uL (4.7-6.1); White Blood Count 13.54 K/uL (4.8-10.8)
[2020-06-18 05:19] LABS: INR 1.2 (0.9-1.1); Partial Thromboplastin Ratio 1.3; Prothrombin Time 12.8 Seconds (9.0-12.0)
[2020-06-18 05:27] LABS: Albumin Level 2.3 gm/dl (3.4-5.0); BUN Creatinine Ratio 24.9 (10-20); Calcium 8.8 mg/dl (8.5-10.1); Creatinine Clr Calc Pharmacy 46.1 ml/min; Est GFR (African American) 47.6; Magnesium 2.2 mg/dl (1.8-2.4); Potassium 3.3 mmol/L (3.5-5.1)
[2020-06-18 05:32] LABS: Albumin Globulin Ratio 0.5 (0.9-2); Bilirubin,Total 1.8 mg/dl (0.2-1); Globulin 4.4 gm/dl (2.5-4.0); Total Protein 6.7 gm/dl (6.4-8.2); Troponin I 0.042 ng/ml (0-0.045)
[2020-06-18] MEDS: FINASTERIDE 5 MG TAB PO SCH (08:08)
[2020-06-18] MEDS: TAMSULOSIN HCL 0.4 MG CAP PO SCH (08:08)
--- NOTE | 2020-06-18 10:07 | Hospitalist Progress Note ---
Date of Service June 18, 2020 Assessment & Plan (1) Acute lower GI bleeding: Favian Multani is an 79-year-old male with a past medical history including diabetes mellitus type 2, elevated troponin, hypervolemia, chronic anticoagulation, history of pulmonary embolism, right knee osteoarthritis, hyperlipidemia, ED, anorectal fistula, HFpEF, CKD stage III, carotid artery stenosis, atrial fibrillation, asthma, hypertension, restrictive lung disease, subclavian artery stenosis, right ICA stenosis, right lower lobe pulmonary nodule, COPD, CAD, PVCs and PAD. He was admitted due to BRBPR on 06/17/20. Acute lower GI bleeding - had lower GI bleed at home but has not had any bleeding since being admitted - Hgb 14.9 today--has remained normal on 4 checks - Hold apixaban and ASA - KUB: Nonobstructed abdominal bowel gas pattern - Gastroenterology consult: 1. Start Anucort suppositories 25 mg OR BID x 7-14 days. 2. Recommend MiraLAX 17 g daily to keep bowel movements soft and regular. 3. Can advance diet. 4. Plan for outpatient colonoscopy as scheduled. 5. Stable for discharge from GI standpoint if cleared by primary team. - Diet advanced Hematoma of right thigh/acute pain of right hip/fall - Patient reports fall about 2 weeks ago--limited ROM, weakness, pain since then - Pelvis/Hip XR: 1. No acute bony abnormality is identified 2. Bilateral hip arthroplasties are in place 3. Soft tissue contusion overlies the right hip - No acute fracture, but patient is very weak on right side--likely would benefit from rehabilitation after d/c - Pt agrees - PT/OT consult--follow recommendations Congestive Heart Failure - Restarted home torsemide 10 mg PO BID starting tonight - Restarted home metoprolol succinate 12.5mg PO daily for tomorrow AM - Home ASA held due to lower GI bleed - Currently no s/s of acute exacerbation Hypertension - Restarted metoprolol for tomorrow AM as above - Generally normotensive throughout admission Atrial fibrillation - EKG showing afib - Rate controlled in the 70s - Home Eliquis held due to lower GI bleed - Restarted metoprolol for tomorrow AM as above CAD/PAD/Carotid Stenosis - Home ASA 81mg pO daily held due to GI bleed - Troponin of 0.051 on admission trended to 0.042 and 0.034--no concerns of ACS CKD Stage III - Creatinine at 1.56 today - Baseline of about 2.0 BPH - Continue home finasteride & tamsulosin DVT ppx: SCDs--pharmacoppx held due to GI bleed THERESAI: Heart healthy, DM2, low sodium Dispo: Med/surg Code: Full Code (2) Chronic kidney disease, stage 3 (moderate): (3) Diastolic congestive heart failure: (4) Elevated troponin: (5) Diabetes mellitus, type 2: (6) Acute pain of right hip: (7) Hematoma of right thigh: (8) Hypertension: (9) Coronary artery disease: Admission and Anticipated Discharge Date Admission Date: June 17, 2020 Supervising Physician Co-Signing Physician Notes I personally examined the patient and verified all ray points of history and exam, discussed case, and agree with decision making with Dr Pratt. feeling ok except for hip hurting and can't really walk well. not averse to rehab "whatever my kids want me to do" (later in case management discussions, that is, in fact, what they want him to do, but rehab not able to take today). no further Gi bleeding. notes constipation, then he takes ducolax and then has BM and some loose stools, then constipation again - notes really bad the last 3wks or so. baseline seems to be more towards constipated on a normal day vitals noted nad heent nc at mmm breathing unlabored no accessory muscles good effort skin no rashes no pallor or icterus abd soft mild distention nontender no guarding no rebound. ext diffuse ~2+ edema, hip pain laterally (trochanter, lateral thigh, lateral buttock) with passive flexion, no real pain at all w internal rotation rectal bleeding - no s/s significant blood loss. given backstory of constipation and BRBPR - most likely hemorrhoidal. appreciate GI input. stable in this regard. outpt f/u constipation - discussed miralax use / titrate to maintain reasonable bowel function (will start w 17g daily - although suspect with the baseline he yovanny cribes he'll likely need 34-51g most days) fall/hip pain - for rehab. supportive care. fortunately no evidence of fracture. leukocytosis - no s/s infection, improved without any specific intervention - likely demargination - follow clinically but no s/s infection noted CKD3 - appears to be around baseline range very slight troponin elevation - f/u levels normal, barely above upper limits of normal. outpt f/u prior PE, afib, chronic anticoagulation - apixaban on hold due to rectal bleeding - but ok to resume by tomorrow if no further bleeding noted otherwise as above dispo - follow into tomorrow for no furhter bleeding, then hopefully able to go to rehab tomorrow Subjective Patient seen at bedside. Reports feeling much better, denies bleeding since admission. Reports tat this began as he had been having episodes of constipation with small hard BMs. Took dulcolax 2 times. Also reports hip pain and not being able to ambulate well after his fall. Says his family is wondering whether he should look into rehabilitation. Told him we'd consult PT/OT. Denies abdominal pain, n/v, CP, palpitations, SOB. Review of Systems Review of Systems: All systems reviewed & are unremarkable except as noted in Subjective Physical Exam Constitutional: WD/WN, vitals as above + obese; no acute distress Respiratory: normal respiratory effort, lungs clear to auscultation Cardiovascular: RRR, no murmur, no edema Heart Sounds: normal S1 and normal S2 Gastrointestinal (Abdomen): normal bowel sounds, soft, nontender, no hepatosplenomegaly Musculoskeletal: Extremities: + limited ROM of extremities (right leg painful with flexion at hip) Psychiatric: A+Ox3, euthymic affect Results & Data Results & Data ([facility]) Vital Signs (Past 12 Hours) Vital Signs Temp Pulse Pulse Resp BP Pulse Ox Pulse Ox 06/18/20 07:03 36.4 C L 64 16 127/72 93 06/18/20 03:21 35.7 C L 67 16 139/75 94 06/18/20 00:02 36.7 C 60 18 119/73 96 06/17/20 22:58 75 06/17/20 22:41 36.5 C 79 20 115/73 97 06/17/20 22:38 97 Resident Activity Tracking Resident Involvement: Resident Care Provided Care Provided: Adult Hospital Medicine (1) Coronary artery disease Associated angina: without angina Coronary Disease-Associated Artery/Lesion type: [place] artery [place] vs. transplanted heart: [place] heart Qualified Code(s): I25.10 - Atherosclerotic heart disease of [place] coronary artery without angina pectoris (2) Hematoma of right thigh Encounter type: initial encounter Qualified Code(s): S70.11XA - Contusion of right thigh, initial encounter (3) Hypertension Hypertension type: essential hypertension Qualified Code(s): I10 - Essential (primary) hypertension
--- NOTE | 2020-06-18 10:18 | Gastrointestinal Consultation ---
Date of Consultation June 18, 2020 Assessment & Plan (1) Acute lower GI bleedin. Start Anucort suppositories 25 mg MT BID x 7-14 days. 2. Recommend MiraLAX 17 g daily to keep bowel movements soft and regular. 3. Can advance diet. 4. Plan for outpatient colonoscopy as scheduled. 5. Stable for discharge from GI standpoint if cleared by primary team. Thank you for allowing us to participate in the care of this patient. If you have any questions or concerns, please do not hesitate to contact us. Supervising Physician Co-Signing Physician Notes I personally evaluated the patient and agree with the findings as documented by KELLY Hines Exam: abd: soft, nt, nd History of Present Illness Reason for Consultation: Lower GIB Requesting Physician: Dr. Nevarez Attending Physician: Javi Tovar DO History of Present Illness Patient is a 79 year-old male with a history anorectal fistula, atrial fibrillation, COPD, asthma, and CAD admitted for bright red rectal bleeding which he states has been ongoing intermittently for the past few weeks. The bleeding is noted on stools, in the toilet bowl and when wiping. The patient also reports the bleeding occurs when is passing small caliber "stool balls" and has been using Dulcolax [id number] in this regard. Denies any abdominal pain, nausea or vomiting or other GI complaints. Has been having associated urinary incontinence which has improved with Flomax. The patient is scheduled for an outpatient colonoscopy with Dr. Scales in a few weeks. Laboratory testing on arrival demonstrated a normal H&H of 14.8 and 43.7. He has been made NPO and started on Protonix daily. Allergies Allergy/AdvReac Type Severity Reaction Status Date / Time warfarin Allergy Intermediate hives, rash Verified 06/17/20 19:44 ciprofloxacin Allergy Unknown Rash Verified 06/17/20 19:44 niacin Allergy Unknown Unknown Verified 06/17/20 19:44 [From Niaspan Extended-Release] umeclidinium Allergy Unknown Unknown Verified 06/17/20 19:44 [From Anoro Ellipta] vilanterol Allergy Unknown Unknown Verified 06/17/20 19:44 [From Anoro Ellipta] Rdyievz-Dkc-Kvc Reductase AdvReac Intermediate muscle Verified 06/17/20 19:44 Inhibitor weakness,pain, cramps Home Medications Medication Instructions Recorded Confirmed Type aspirin 81 mg tablet,delayed 81 mg PO DAILY 09/21/19 06/17/20 History release metoprolol succinate 25 mg 12.5 mg PO DAILY #30 tab 03/04/20 06/17/20 Rx tablet,extended release 24 hr cholecalciferol (vitamin D3) 50 50 mcg PO DAILY #30 cap 04/12/20 06/17/20 Rx mcg (2,000 unit) capsule finasteride 5 mg tablet 5 mg PO DAILY #30 tab 05/07/20 06/17/20 Rx tamsulosin 0.4 mg capsule 0.4 mg PO DAILY #30 cap 05/07/20 06/17/20 Rx apixaban 2.5 mg tablet 2.5 mg PO BID #180 tab 06/12/20 06/17/20 Rx torsemide 10 mg PO BID 06/17/20 06/17/20 History Patient History Medical History Anemia Anorectal fistula Arthritis Asthma Atrial fibrillation Carotid artery stenosis >70% NEHAL, <50% LICA Chronic kidney disease, stage 3 (moderate) COPD (chronic obstructive pulmonary disease) Coronary artery disease Remote h/o stent to RCA. Stent patent on 2005 cath per cardio. Degenerative arthritis of right knee Diabetes mellitus, type 2 Diastolic congestive heart failure Eczema Erectile dysfunction H/O difficult intubation Glidescope 2011 lap tracie History of pulmonary embolism (02/2011) Hyperlipidemia Hypertension On anticoagulant therapy PAD (peripheral artery disease) (03/14/14) L common iliac angioplasty/stent, stenting of totally occluded R SFA, angioplasty of occluded RCF 2006. Angioplasty to R SFA in-stent stenosis 2013. PVCs (premature ventricular contractions) Longstanding hx, asymptomatic. Started on 12.5mg Metoprolol BID during admission 03/2018, mild reduction in LV systolic function felt possibly 2/2 to frequent ectopy. Restrictive lung disease Right lower lobe pulmonary nodule Noted on CT 04/03, 12mo f/u recommended. 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 S/P cataract surgery R/L S/P coronary artery stent placement (1995) RCA Status post surgery (12/15/17) placement of seton drain in transsphinteric fistula Family History Mother Thyroid disease Father Coronary heart disease Emphysema of lung Denies family history of Colon cancer Ovarian cancer Prostate cancer Myocardial infarction Breast cancer Lung cancer Colorectal cancer Social History Smoking Status: Current some day smoker Tobacco Type: Pipe Second Hand Exposure: No; Hx Alcohol Use: No Hx Substance Use: No Preferred Language: Maldivian Communication Ability: Effective Visual Impairment: No Limitations Hearing Ability: Use of Hearing Aid Java Support Engineer Required: No Beliefs That Will Affect Care: None marital status: / Current Living Situation: Alone current occupational status: retired How many Children do You have: 2 Other Information That Helps Us Care for You: No Feels Safe at Home: Yes Safety Concerns: Feels Safe At This Time Childhood Exposure to Second-Hand Smoke: No Diet Comment: regular caffeine: Yes (2-3 cups coffee) during the past year weight has: increased > 10 lbs Dental Care, Regularly: Yes Physical Activity Frequency: 1-2 Times per Week Seatbelt Use: always Sunscreen Use: Yes Assistive Devices: Glasses Review of Systems Constitutional: no fever, no chills and no fatigue Eyes: no problem reported Ear, Nose, Mouth, Throat: no dysphagia and no pain with swallowing Respiratory: + cough; no dyspnea Cardiovascular: no chest pain and no palpitations Gastrointestinal: as per Subjective / HPI Genitourinary: + as per Subjective / HPI Musculoskeletal: + swelling difficulty ambulating Integumentary: no problem reported Neurologic: no dizziness and no syncope Psychiatric: no problem reported Endocrine: no problem reported Hematologic / Lymphatic: no problem reported Physical Exam Constitutional: WD/WN, vitals as above well developed and well nourished Eyes: EOM intact bilaterally Neck: normal visual inspection Respiratory: normal respiratory effort and + cough Auscultation: lungs clear to auscultation bilaterally Cardiovascular: Rate/Rhythm: regular rate and regular rhythm Heart Sounds: no murmur Gastrointestinal (Abdomen): normal bowel sounds, soft, nontender, no hepatosplenomegaly Musculoskeletal: Extremities: + lower leg abnormality Bilateral Skin: + excoriations Psychiatric: A+Ox3, euthymic affect Results & Data ([facility]) Vital Signs (Past 12 Hours) Vital Signs Temp Pulse Pulse Resp BP Pulse Ox Pulse Ox 06/18/20 07:03 36.4 C L 64 16 127/72 93 06/18/20 03:21 35.7 C L 67 16 139/75 94 06/18/20 00:02 36.7 C 60 18 119/73 96 06/17/20 22:58 75 06/17/20 22:41 36.5 C 79 20 115/73 97 06/17/20 22:38 97 Laboratory Results Abnormal lab results 06/17/20 06/17/20 06/17/20 Range/Units 17:28 17:28 17:28 WBC 21.94 H (4.8-10.8) K/uL RBC (4.7-6.1) M/uL RDW Std Deviation 56.1 H (36.4-46.3) fL RDW Coeff of Anton 16.3 H (11.5-14.5) % Neut # (Auto) 18.99 H (1.4-6.5) K/uL Lymph # (Auto) 1.05 L (1.2-3.4) K/uL Jay # (Auto) 1.78 H (0.11-0.59) K/uL Immature Gran # (Auto) 0.07 H (0.00-0.02) K/uL PT 13.0 H (9.0-12.0) Seconds INR 1.2 H (0.9-1.1) APTT 35.5 H (21.0-31.0) Seconds Sodium 132 L (136-145) mmol/L Potassium (3.5-5.1) mmol/L Chloride 95 L (98-107) mmol/L BUN 38 H (7-18) mg/dl Creatinine 1.85 H (0.6-1.4) mg/dl BUN/Creatinine Ratio 20.4 H (10-20) Glucose 114 H (70-99) mg/dl Total Bilirubin 2.1 H (0.2-1) mg/dl Troponin I 0.051 H* (0-0.045) ng/ml Albumin 2.5 L (3.4-5.0) gm/dl Globulin 4.6 H (2.5-4.0) gm/dl Albumin/Globulin Ratio 0.5 L (0.9-2) Urine Protein (Negative) Urine Blood (Negative) U Epithel Cells (Auto) (0-5) /lpf 06/17/20 06/18/20 06/18/20 Range/Units 21:47 04:49 04:49 WBC 13.54 H (4.8-10.8) K/uL RBC 4.62 L (4.7-6.1) M/uL RDW Std Deviation 56.4 H (36.4-46.3) fL RDW Coeff of Anton 16.5 H (11.5-14.5) % Neut # (Auto) 10.60 H (1.4-6.5) K/uL Lymph # (Auto) (1.2-3.4) K/uL Jay # (Auto) 1.16 H (0.11-0.59) K/uL Immature Gran # (Auto) 0.03 H (0.00-0.02) K/uL PT 12.8 H (9.0-12.0) Seconds INR 1.2 H (0.9-1.1) APTT 35.0 H (21.0-31.0) Seconds Sodium (136-145) mmol/L Potassium (3.5-5.1) mmol/L Chloride (98-107) mmol/L BUN (7-18) mg/dl Creatinine (0.6-1.4) mg/dl BUN/Creatinine Ratio (10-20) Glucose (70-99) mg/dl Total Bilirubin (0.2-1) mg/dl Troponin I (0-0.045) ng/ml Albumin (3.4-5.0) gm/dl Globulin (2.5-4.0) gm/dl Albumin/Globulin Ratio (0.9-2) Urine Protein 1+ H (Negative) Urine Blood 1+ H (Negative) U Epithel Cells (Auto) 5-10 H (0-5) /lpf 06/18/20 Range/Units 04:49 WBC (4.8-10.8) K/uL RBC (4.7-6.1) M/uL RDW Std Deviation (36.4-46.3) fL RDW Coeff of Anton (11.5-14.5) % Neut # (Auto) (1.4-6.5) K/uL Lymph # (Auto) (1.2-3.4) K/uL Jay # (Auto) (0.11-0.59) K/uL Immature Gran # (Auto) (0.00-0.02) K/uL PT (9.0-12.0) Seconds INR (0.9-1.1) APTT (21.0-31.0) Seconds Sodium 133 L (136-145) mmol/L Potassium 3.3 L (3.5-5.1) mmol/L Chloride (98-107) mmol/L BUN 39 H (7-18) mg/dl Creatinine 1.56 H (0.6-1.4) mg/dl BUN/Creatinine Ratio 24.9 H (10-20) Glucose (70-99) mg/dl Total Bilirubin 1.8 H (0.2-1) mg/dl Troponin I (0-0.045) ng/ml Albumin 2.3 L (3.4-5.0) gm/dl Globulin 4.4 H (2.5-4.0) gm/dl Albumin/Globulin Ratio 0.5 L (0.9-2) Urine Protein (Negative) Urine Blood (Negative) U Epithel Cells (Auto) (0-5) /lpf PG Care Time/CCT Total # of Minutes Spent Total Time Spent with Patient: Total time spent is greater than 50% in coordination of care (as documented) at patient's floor/unit and/or counseling patient: Coding Level of Care Code 52824 Initial Inpt Care Lvl 3 Diagnoses Acute lower GI bleeding K92.2
[2020-06-18 10:37] LABS: Hematocrit (blood only) 44.8 % (42-52); Hemoglobin 14.9 g/dL (14.0-18.0)
[2020-06-18] MEDS: PANTOprazole 40 MG in SYRINGE 0 ML IV SCH (11:13)
--- NOTE | 2020-06-18 16:59 | Billing Data ---
Date of Service June 18, 2020 Coding Level of Care Code 99124 Subseq Hosp Care Lvl 3
[2020-06-18] MEDS: MELATONIN 3 MG TAB PO PRN (21:04)
[2020-06-18] MEDS: HYDROCORTISONE ACETATE 25 MG SUPP PR SCH (21:04)
[2020-06-18] MEDS: TORSEMIDE 10 MG TAB PO SCH (21:05)
--- NOTE | 2020-06-19 04:29 | Electrocardiogram Report ---
Test Reason : Blood Pressure : / mmHG Vent. Rate : 077 BPM Atrial Rate : 068 BPM P-R Int : 000 ms QRS Dur : 158 ms QT Int : 460 ms P-R-T Axes : 000 -50 130 degrees QTc Int : 520 ms Atrial fibrillation with premature ventricular or aberrantly conducted complexes Left axis deviation Left ventricular hypertrophy Right bundle branch block Inferior infarct (cited on or before 23-FEB-2020) Abnormal ECG When compared with ECG of 24-FEB-2020 07:45, No significant change Confirmed by Devon Jimenez ([id number]) on 06/19/2020 4:29:16 AM Referred By: REFERRED SELF Confirmed By:Devon Jimenez
--- NOTE | 2020-06-19 04:53 | Electrocardiogram Report ---
Test Reason : Blood Pressure : / mmHG Vent. Rate : 070 BPM Atrial Rate : 000 BPM P-R Int : 000 ms QRS Dur : 166 ms QT Int : 476 ms P-R-T Axes : 000 -49 124 degrees QTc Int : 514 ms Atrial fibrillation with premature ventricular or aberrantly conducted complexes Left axis deviation Right bundle branch block Left ventricular hypertrophy Cannot rule out Inferior infarct (cited on or before 23-FEB-2020) Abnormal ECG When compared with ECG of 17-JUN-2020 16:52, No significant change was found Confirmed by Devon Jimenez ([id number]) on 06/19/2020 4:53:15 AM Referred By: REFERRED SELF Confirmed By:Devon Jimenez
[2020-06-19 07:50] LABS: Basophils # (auto) 0.03 K/uL (0-0.2); Basophils % (auto) 0.3 %; Eosinophils % (auto) 2.1 %; Hematocrit (blood only) 46.5 % (42-52); Hemoglobin 15.4 g/dL (14.0-18.0); Immature Granulocytes # (auto) 0.04 K/uL (0.00-0.02); Immature Granulocytes % (auto) 0.4 %; Lymphocytes # (auto) 1.32 K/uL (1.2-3.4); Lymphocytes % (auto) 13.6 %; Mean Corpuscular Hemoglobin 31.8 pg (25-34); Mean Corpuscular Hgb Conc 33.1 g/dL (32-36); Mean Corpuscular Volume 95.9 fL (80-100); Mean Platelet Volume 9.9 fL (7.4-10.4); Monocytes # (auto) 1.02 K/uL (0.11-0.59); Monocytes % (auto) 10.5 %; Neutrophils # (auto) 7.08 K/uL (1.4-6.5); Neutrophils % (auto) 73.1 %; Platelet Count 242 K/uL (130-400); RDW Coefficient of Variation 16.4 % (11.5-14.5); Red Blood Count 4.85 M/uL (4.7-6.1); White Blood Count 9.69 K/uL (4.8-10.8)
[2020-06-19] MEDS: HYDROCORTISONE ACETATE 25 MG SUPP PR SCH (07:59)
[2020-06-19] MEDS: TORSEMIDE 10 MG TAB PO SCH (07:59)
[2020-06-19] MEDS: TAMSULOSIN HCL 0.4 MG CAP PO SCH (07:59)
[2020-06-19] MEDS: FINASTERIDE 5 MG TAB PO SCH (08:01)
[2020-06-19 08:02] LABS: INR 1.1 (0.9-1.1); Partial Thromboplastin Ratio 1.2; Partial Thromboplastin Time 32.1 Seconds (21.0-31.0); Prothrombin Time 11.9 Seconds (9.0-12.0)
[2020-06-19 08:33] LABS: Albumin Globulin Ratio 0.5 (0.9-2); Albumin Level 2.4 gm/dl (3.4-5.0); BUN Creatinine Ratio 25.6 (10-20); Bilirubin,Total 1.1 mg/dl (0.2-1); Est GFR (Non-African American) 34.5; Globulin 4.4 gm/dl (2.5-4.0); Magnesium 2.1 mg/dl (1.8-2.4); Total Protein 6.8 gm/dl (6.4-8.2)
[2020-06-19] MEDS ORDERED: POLYETHYLENE (MIRALAX) 17 GM PACK PO SCH (09:00)
[2020-06-19] MEDS ORDERED: CHOLECALCIFEROL 1,000 UNITS 25 MCG TAB PO SCH (09:00)
[2020-06-19] MEDS ORDERED: METOPROLOL SUCC 25MG EXT REL TAB PO SCH (09:00)
--- NOTE | 2020-06-19 10:03 | Discharge Summary ---
Date of Service June 19, 2020 Admission HPI Per Admitting Provider The patient is an 79-year-old male with a past medical history including diabetes mellitus type 2, elevated troponin, hypervolemia, chronic anticoagulation, history of pulmonary embolism, right knee osteoarthritis, h yperlipidemia, ED, anorectal fistula, HFpEF, CKD stage III, carotid artery stenosis, atrial fibrillation, asthma, hypertension, restrictive lung disease, subclavian artery stenosis, right ICA stenosis, right lower lobe pulmonary nodule, COPD, CAD, PVCs and PAD. He presents with symptoms as noted above, and reports a fall 2 weeks ago and since that time has had pain in his right hip. He has not been as physically active due to this pain, and has not been seen by his PCP for the symptoms Admission Exam Per Admitting Provider The patient is awake, alert and oriented 3, well developed and well nourished, normocephalic and atraumatic, lying in bed and in no acute distress. HEENT--PERRL, EOMI, mucous membranes and oropharynx normal. Neck--supple. No JVD. No bruits. Thyroid normal, trachea midline, no adenopathy. Heart--normal S1 and S2. No murmurs, rubs or gallops. Lungs--clear bilaterally, no respiratory distress, no accessory muscle use. Abdomen--normal bowel sounds and soft. Nontender. Nondistended Extremities--no cyanosis or clubbing. 1+ bilateral pretibial pitting edema. Dermatologic--normal skin turgor. Ecchymosis right hip Neurologic--cranial nerves II through XII grossly intact. Rheumatologic--decreased range of motion of right hip area due to pain Psychiatric--normal affect. Principal Diagnosis Lower GI bleed Discharge Exam Constitutional WD/WN, vitals as above no acute distress Respiratory normal respiratory effort, lungs clear to auscultation no labored breathing Cardiovascular RRR, no murmur, no edema Gastrointestinal (Abdomen) normal bowel sounds, soft, nontender, no hepatosplenomegaly Musculoskeletal Hip: + limited ROM of hip (with flexion of right hip) Psychiatric A+Ox3, euthymic affect Discharge Data Allergies Allergy/AdvReac Type Severity Reaction Status Date / Time warfarin Allergy Intermediate hives, rash Verified 06/17/20 19:44 ciprofloxacin Allergy Unknown Rash Verified 06/17/20 19:44 niacin Allergy Unknown Unknown Verified 06/17/20 19:44 [From Niaspan Extended-Release] umeclidinium Allergy Unknown Unknown Verified 06/17/20 19:44 [From Anoro Ellipta] vilanterol Allergy Unknown Unknown Verified 06/17/20 19:44 [From Anoro Ellipta] Mzkdmel-Vef-Lfe Reductase AdvReac Intermediate muscle Verified 06/17/20 19:44 Inhibitor weakness,pain, cramps Consultations 06/17/20 19:19 ED Decision to Admit Stat 06/17/20 22:38 Consult Case Management - Discharge Planning Routine Consult Gastroenterology Routine Hospital Course (1) Acute lower GI bleeding: Favian Multani is an 79-year-old male with a past medical history including diabetes mellitus type 2, elevated troponin, hypervolemia, chronic anticoagulation, history of pulmonary embolism, right knee osteoarthritis, hyperlipidemia, ED, anorectal fistula, HFpEF, CKD stage III, carotid artery stenosis, atrial fibrillation, asthma, hypertension, restrictive lung disease, subclavian artery stenosis, right ICA stenosis, right lower lobe pulmonary nodule, COPD, CAD, PVCs and PAD. He was admitted due to BRBPR on 06/17/20. Acute lower GI bleeding - had lower GI bleed at home but has not had any bleeding since being admitted - Hgb 14.9 today--has remained normal on 4 checks - Held apixaban and ASA while admitted--will continue at home - KUB: Nonobstructed abdominal bowel gas pattern - Gastroenterology consult: 1. Start Anucort suppositories 25 mg CA BID x 7-14 days. 2. Recommend MiraLAX 17 g daily to keep bowel movements soft and regular. 3. Can advance diet. 4. Plan for outpatient colonoscopy as scheduled. 5. Stable for discharge from GI standpoint if cleared by primary team. - Diet advanced--tolerated well - Patient will be d/c with plans for colonoscopy as scheduled in June Hematoma of right thigh/acute pain of right hip/fall - Patient reports fall about 2 weeks ago--limited ROM, weakness, pain since then - Pelvis/Hip XR: 1. No acute bony abnormality is identified 2. Bilateral hip arthroplasties are in place 3. Soft tissue contusion overlies the right hip - No acute fracture, but patient is very weak on right side - Pt agrees to transfer to [facility] today upon d/c Congestive Heart Failure - Restarted home torsemide 10 mg PO BID starting tonight - Restarted home metoprolol succinate 12.5mg PO daily - Home ASA held due to lower GI bleed--will continue on d/c - Currently no s/s of acute exacerbation Hypertension - Restarted metoprolol as above - Generally normotensive throughout admission Atrial fibrillation - EKG on admission showing afib - Rate controlled in the 70s - Home Eliquis held due to lower GI bleed--continue on d/c - Restarted metoprolol as above CAD/PAD/Carotid Stenosis - Home ASA 81mg pO daily held due to GI bleed--continue on d/c - Troponin of 0.051 on admission trended to 0.042 and 0.034--no concerns of ACS CKD Stage III - Creatinine at 1.80 on morning of d/c - Baseline of about 2.0 BPH - Continued home finasteride & tamsulosin DVT ppx: SCDs--pharmacoppx held due to GI bleed FENGI: Heart healthy, DM2, low sodium Dispo: transfer to inpatient rehab facility Code: Full Code (2) Chronic kidney disease, stage 3 (moderate): (3) Diastolic congestive heart failure: (4) Elevated troponin: (5) Diabetes mellitus, type 2: (6) Acute pain of right hip: (7) Hematoma of right thigh: (8) Hypertension: (9) Coronary artery disease: Total Time Total Time Spent Total Time Spent (In Minutes): see attending attestation Discharge Plan Discharge Items Patient Disposition: Transfer Inpatient Rehab Fac Reason For Visit: LOWER GI BLEED Discharge Diagnosis: Lower GI bleed Condition on Discharge: Good Activity: Per Instructions section Non-emergency contact: Primary Care Provider and Bank Reconciliator Call non-emergency contact if: you have any medication questions and your symptoms worsen Follow-up/Referrals: Winnie Fletcher DO [Primary Care Provider] - Diet: Carb Consistent or DM2 and Heart Healthy Addtl Attending Provider Instructions: You were admitted to [facility] due to blood in your bowel movements as well as weakness in your right leg. You were evaluated by gastroenterology and it was recommended that you take Miralax daily as well as use hydrocortisone suppositories for 14 days. You should also follow up for your colonoscopy in June as scheduled. For your leg weakness, it is recommended that you go to an inpatient rehabilitation facility to build up your strength before returning home. Please follow up with your PCP as well as with gastroenterology as scheduled. Pending Studies at Discharge: No Stand-Alone Forms: [facility], Smoking Cessation Skilled Items Patient informed of condition?: Yes DNR: No Discharge Level of Care: Acute rehab Communicable Disease: No Discharge Prognosis: Stable Lines: None Urinary Catheter: No Medications and DC Order Prescriptions: New polyethylene glycol 3350 [Miralax] 17 gram Powder In Packet 17 g PO DAILY 30 Days Qty: 30 RF: 0 hydrocortisone acetate [Anucort-HC] 25 mg Suppository 25 mg CA BID 14 Days Qty: 24 RF: 0 Continued cholecalciferol (vitamin D3) 50 mcg (2,000 unit) capsule 50 mcg PO DAILY Qty: 30 RF: 0 Eliquis 2.5 mg tablet 2.5 mg PO BID Qty: 180 RF: 3 metoprolol succinate 25 mg tablet extended release 24 hr 12.5 mg PO DAILY Qty: 30 RF: 0 tamsulosin 0.4 mg capsule 0.4 mg PO DAILY Qty: 30 RF: 1 finasteride 5 mg tablet 5 mg PO DAILY Qty: 30 RF: 2 aspirin 81 mg tablet,delayed release (DR/EC) 81 mg PO DAILY RF: 0 torsemide 20 mg tablet 10 mg PO BID RF: 0 Discharge Orders: Discharge Order (Routine); Ordered 06/19/20 [facility] Data Admit Date/Time: 06/17/20 21:06 Attending Provider: Erwin Mckay Admit Provider: Malik Nevarez Primary Care Provider: Winnie Fletcher [facility] ; Malik Nevarez ; Octavio Scales Other Interventions: Discharge Summary Assessment (RN) Last Done: 06/19/20 11:23 Supervising Physician Co-Signing Physician Notes Resident Physician Supervision Note: I was present with Dr. David Pratt during the history and exam. I discussed the case with the resident and agree with the findings and plan as documented in the note. Any exceptions or clarifications are listed here: none Patient presented with ambulatory dysfunction from the thigh hematoma encouraged by circulating anticoagulants with apixaban and also aspirin. Patient had some mild lower GI bleeding but his hemoglobin remained stable during his hospital stay. Patient was stable for discharge she was vital signs reviewed physical exam shows patient to be in no particular distress he was eating breakfast Patient be discharged to rehab hospital for further supervised ambulation and reinstituting his apixaban on aspirin at time of discharge Documented By: Erwin Mckay MD Resident Activity Tracking Resident Involvement: Resident Care Provided Care Provided: Adult Hospital Medicine
[2020-06-19] MEDS: PANTOprazole 40 MG in SYRINGE 0 ML IV SCH (11:37)
--- NOTE | 2020-06-19 12:37 | Billing Data ---
Date of Service June 19, 2020 Coding Level of Care Code D/C Day Management >30 mins
== END 2020-06-19 11:54 | DRG 378 ==
LOC: ED 16:46 → SUATTDRO 21:06 → 2N 21:06 → 3E 06-18 23:22

== ENCOUNTER 2022-11-30 12:37 | Inpatient (IN) ==
--- NOTE | 2022-11-30 13:05 | XRay Report ---
XR chest 1V portable HISTORY: 81 years-old Male Chest pain, nonspecific COMPARISON: 11/19/2022 TECHNIQUE: AP view of the chest FINDINGS: Cardiac silhouette is enlarged. Eventration of the right hemidiaphragm. Emphysema with chronic inters titial coarsening. Pulmonary vascular congestion. Calcified pleural plaques redemonstrated. No pneumo thorax or large pleural effusion. Degenerative changes of the shoulders and spine. Chronic left-sided rib fractures. IMPRESSION: 1. Cardiomegaly with pulmonary vascular congestion. 2. Emphysema. 3. Calcified pleural plaques redemonstrated. ACT 112: Negative or not required by law. The above report was generated using voice recognition software. It may contain grammatical, syntax o r spelling errors. Electronically signed by: Ananth Lopez M.D. 11/30/2022 1:03 PM
--- NOTE | 2022-11-30 13:06 | Emergency Department Note ---
Impression & Plan CHF (congestive heart failure), Weakness, Elevated troponin, Hypoxia ED Provider Note NAME: ELISSA BOOTH AGE: 81 SEX: M : 1940 ARRIVES VIA: Ambulance INFORMANT: Patient ED PROVIDER(S): Javi Anthony DO CHIEF COMPLAINT: weakness, nausea and weight gain HPI: Patient is an 81-year-old male with a past medical history of CHF, PVC, hypertension, hyperlipidemia, PE, KS, CAD, COPD, CKD, asthma on apixaban who presents to the ER for increased swelling of his legs. He notes he has gained about 15 pounds over the course of the past month. He has a cough which has been fairly unchanged and he has noticed some flecks of blood. He admits to nausea which is always there for him. No focal belly pain. Normal bowel movements. No dysuria, urgency, or frequency. He notes he is short of breath when he lays flat. He symptoms gets short of breath with up moving around. He was placed on Lasix and increased to 40 mg this past . He does not believe that this is helped out. PAST MEDICAL HISTORY:See Below PAST SURGICAL HISTORY:See Below FAMILY HISTORY:See Below SOCIAL HISTORY:See Below HOME MEDICATIONS:See Below ALLERGIES:See Below VITALS:See Below PHYSICAL EXAMINATION: GENERAL: Sitting up in bed, alert, well appearing, well nourished, no distress, non-toxic EYE EXAM: normal conjunctiva. PERRL and EOM's grossly intact. OROPHARYNX: mucous membranes are moist NECK: supple, no nuchal rigidity, no adenopathy, non-tender LUNGS: Clear to auscultation. Normal chest wall mechanics HEART: no murmurs, S1 normal and S2 normal ABDOMEN: abdomen soft, non-tender, normo-active bowel sounds, no masses, no rebound or guarding. UPPER EXTREMITIES: upper extremities are grossly normal. LOWER EXTREMITIES: Pitting edema in the lower extremities NEURO EXAM: Normal sensorium, cranial nerves II-XII grossly intact, normal speech, no gross weakness of arms, no gross weakness of legs. MEDICAL DECISION MAKING: [Provider summary] Patient is an 81-year-old male who presents ER for above-stated complaint. IV was established blood work was obtained. Labs show no significant leukocytosis or anemia. BMP with a creatinine of 2.2 up from baseline of 1.8. T. bili mildly up at 2.1. Troponin was elevated at 150. BNP was elevated at 2000. COVID was negative. Chest x-ray without any focal infiltrate although some vascular congestion. Does have pitting edema bilaterally. Do favor this is all consistent with CHF. Favor ACS is unlikely. Patient was given aspirin and Lasix. Updated at bedside. Did discuss with Dr. Masters prior to giving dose of IV Lasix. Of note patient was found to be hypoxic at 88% on room air and was placed on 2 L nasal cannula. Triage Nursing notes reviewed. Limited review of prior medical records performed Vital Signs: reviewed and remarkable for HTN. Differential diagnosis: Differential diagnoses includes but is not limited to pneumonia, bronchitis, COPD/Asthma exacerbation, pneumothorax, pulmonary embolism, congestive heart failure, acute coronary syndrome ER treatment provided: See below Diagnostics interpreted by me include EKG and cardiac monitoring as listed below: -Cardiac Monitoring: An order was placed for continuous cardiac monitoring. The monitor shows a rate of 70 with sinus rhythm. -ECG: Sinus rhythm rate of 74 Left axis Right bundle branch block Mild ST depressions in V2 V3 No significant change from previous -Laboratory studies:Interpreted by me as stated above in MDM and shown below. Imaging studies: Xrays: As interpreted by me: Chest x-ray with no focal infiltrate CTs show: none Consultation(s): Discussed with the hospitalist for further evaluation management and treatment Dr. Masters Procedures:none Critical Care: I have personally spent 32 minutes of critical care time in the direct management of this patient. This includes bedside care, interpretation of diagnostic studies, and testing, discussion with consultants, patient, and family members, and other required patient management activities. This 32 minutes is in excess of all separately billable procedures. Past Med/Surg History Medical History Acute lower GI bleeding Anemia Anorectal fistula Arthritis Asthma Atrial fibrillation Carotid artery stenosis >70% NEHAL, <50% LICA Chronic kidney disease, stage 3 (moderate) COPD (chronic obstructive pulmonary disease) Coronary artery disease Remote h/o stent to RCA. Stent patent on 2005 cath per cardio. Degenerative arthritis of right knee Diabetes mellitus, type 2 Diastolic congestive heart failure Eczema Erectile dysfunction H/O difficult intubation Glidescope 2011 lap tracie History of anesthesia reaction SOMETIMES COMES OUT SWINGING History of KS (myocardial infarction) TOTAL OF 3 History of pulmonary embolism (02/2011) HX BILATERAL Hyperlipidemia Hypertension On anticoagulant therapy PAD (peripheral artery disease) (03/14/14) L common iliac angioplasty/stent, stenting of totally occluded R SFA, angioplasty of occluded RCF 2006. Angioplasty to R SFA in-stent stenosis 2013. PVCs (premature ventricular contractions) Restrictive lung disease Right lower lobe pulmonary nodule Noted on CT 04/03, 12mo f/u recommended. LAST CHECK 1 YR AGO AT [facility] Subclavian artery stenosis Vitamin D insufficiency Surgical History H/O inguinal hernia repair H/O total hip arthroplasty R/L H/O total knee replacement (09/2017) RIGHT History of cardiac cath MULTIPLE - TOTAL OF 16 STENTS - UNSURE WHEN MOST RECENT History of CEA (carotid endarterectomy) (06/01/18) R CEA w/ patch angioplasty History of hydrocelectomy History of incision and drainage (10/23/17) ischiorectal abscess Hx laparoscopic cholecystectomy S/P arterial stent (08/2006) R SFA LIPSTICK MOLDER and stenting S/P cataract surgery R/L S/P coronary artery stent placement (1995) RCA Status post angioplasty (2013) to R SFA in stent stenosis Status post surgery (12/15/17) placement of seton drain in transsphinteric fistula - 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 AND ALWAYS IS DRAINING Family History Mother Thyroid disease Family history of diabetes mellitus Father Coronary heart disease Emphysema of lung Family history of diabetes mellitus Uncle Family history of colon cancer Denies family history of Colon cancer Ovarian cancer Prostate cancer Myocardial infarction Breast cancer Lung cancer Colorectal cancer Social History Smoking Status: Current every day smoker Tobacco Type: Pipe Cigarettes Per Day: COUPLE TIMES A DAY TO SMOKE PIPE; Second Hand Exposure: No; Do You Dip or Chew Tobacco: No; Tobacco Cessation Education Requested by Patient: Yes Hx Alcohol Use: No Hx Substance Use: No Preferred Language: Greek Communication Ability: Effective Communication Ability Comment: PHONE INTERVIEW DONE WITH DAUGHTERSHADE PER PT REQUEST Visual Impairment: No Limitations Hearing Ability: Use of Hearing Aid Instrument Lens Grinder Apprentice Required: No Beliefs That Will Affect Care: None marital status: / Current Living Situation: Alone Current Living Situation Comment: lives alone in apartment current occupational status: retired How many Children do You have: 2 Other Information That Helps Us Care for You: No Feels Safe at Home: Yes Safety Concerns: Feels Safe At This Time Childhood Exposure to Second-Hand Smoke: No Diet Comment: regular caffeine: Yes (2-3 cups coffee) during the past year weight has: increased > 10 lbs Dental Care, Regularly: Yes Physical Activity Frequency: 1-2 Times per Week Seatbelt Use: always Sunscreen Use: Yes Assistive Devices: Cane, Denture - Upper, Glasses, Hearing Aid - Bilateral and Walker Assistive Devices Comment: hearing aids not with patient at this time Allergies Allergies Allergy/AdvReac Type Severity Reaction Status Date / Time ciprofloxacin Allergy Intermediate Rash Verified 11/30/22 14:51 warfarin Allergy Intermediate hives, rash Verified 11/30/22 14:51 niacin AdvReac Severe LEG Verified 11/30/22 14:51 [From Niaspan WEAKNESS Extended-Release] [id number] Reductase AdvReac Severe muscle Verified 11/30/22 14:51 Inhibitor weakness,pain, [Cqwbzaw-Ptd-Hgi Reductase cramps Inhibitor] umeclidinium AdvReac Unknown "NOT Verified 11/30/22 14:51 [From Anoro Ellipta] ALLERGIC,DOES NOTHING FOR ME" vilanterol AdvReac Unknown "NOT Verified 11/30/22 14:51 [From Anoro Ellipta] ALLERGIC, DOES NOTHING FOR ME" Home Meds Home Medications Medication Instructions Recorded Confirmed finasteride 5 mg tablet 5 mg PO QAM 06/28/20 11/30/22 polyethylene glycol 3350 17 gram 17 g PO BID PRN Constipation 04/03/21 11/30/22 oral powder packet (Miralax) aspirin 81 mg tablet,delayed 81 mg PO QPM 11/19/22 11/30/22 release cholecalciferol (vitamin D3) 50 50 mcg PO QAM 11/19/22 11/30/22 mcg (2,000 unit) capsule metoprolol succinate 25 mg 25 mg PO QPM 11/19/22 11/30/22 tablet,extended release 24 hr potassium chloride 10 mEq 20 meq PO QAM 11/19/22 11/30/22 tablet,extended release torsemide 10 mg tablet 10 mg PO QAM 11/19/22 11/30/22 furosemide 20 mg tablet 20 mg PO DAILY 11/30/22 11/30/22 ipratropium 0.5 mg-albuterol 3 mg 3 ml inhalation DIRECTED 11/30/22 11/30/22 (2.5 mg base)/3 mL nebulization soln prednisone 20 mg tablet 40 mg PO DAILY 11/30/22 11/30/22 Previous Rx's Medication Instructions Recorded nitroglycerin 0.4 mg sublingual 0.4 mg sublingual Q5M PRN chest 09/03/22 tablet pain #25 tabs amiodarone 200 mg tablet 200 mg PO BID #60 tabs 10/01/22 ondansetron 4 mg disintegrating 4 mg PO Q8H PRN nausea and 11/19/22 tablet vomiting #30 tabs apixaban 2.5 mg tablet (Eliquis) 2.5 mg PO BID #60 tabs 11/20/22 lisinopril 2.5 mg tablet 2.5 mg PO QAM #90 tabs 11/27/22 Results & Data (ED) Vital Signs Vital Signs - 24 hr 11/30/22 12:48 11/30/22 12:29 11/30/22 12:53 Temperature 36.4 C L Temperature Source Temporal Artery Scan Pulse Rate 84 78 69 Pulse Rate [Apical] Respiratory Rate 18 18 Respiratory Effort / Characteristics Non-Labored Spontaneous Respiratory Depth Normal Respiratory Pattern Regular Blood Pressure 160/108 H Blood Pressure [Right Arm] Blood Pressure Mean 125 Blood Pressure Mean [Right Arm] Blood Pressure Position Sitting Blood Pressure Position [Right Arm] Pulse Oximetry 94 96 Oxygen Delivery Method Room Air Room Air Oxygen Flow Rate Sepsis Recent Fever Within 48 Hours No Sepsis New/Unexplained Change in Mental Status N/A Sepsis Action Taken by Nursing No Action Required Oxygen Flow Rate - Titration Pulse Oximetry Post Tiitration 11/30/22 13:07 11/30/22 13:30 11/30/22 15:15 Temperature Temperature Source Pulse Rate Pulse Rate [Apical] 71 Respiratory Rate 20 Respiratory Effort / Characteristics Respiratory Depth Respiratory Pattern Blood Pressure Blood Pressure [Right Arm] 163/100 H Blood Pressure Mean Blood Pressure Mean [Right Arm] 121 Blood Pressure Position Blood Pressure Position [Right Arm] Sitting Pulse Oximetry 97 90 97 Oxygen Delivery Method Room Air Nasal Cannula Room Air Nasal Cannula Nasal Cannula Oxygen Flow Rate 2 0 2 Sepsis Recent Fever Within 48 Hours Sepsis New/Unexplained Change in Mental Status Sepsis Action Taken by Nursing Oxygen Flow Rate - Titration 0 2 Pulse Oximetry Post Tiitration 97 97 Laboratory Data 11/30/22 12:52 11/30/22 12:52 Lab Results 11/30/22 11/30/22 11/30/22 Range/Units 12:47 12:52 12:52 WBC 10.47 (4.8-10.8) K/ul RBC 4.53 L (4.70-6.10) M/uL Hgb 14.8 (14.0-18.0) g/dl Hct 42.0 (42.0-52.0) % MCV 92.7 (80.0-100.0) fL MCH 32.7 (25.0-34.0) pg MCHC 35.2 (32.0-36.0) g/dL RDW Std Deviation 51.2 H (36.4-46.3) fL RDW Coeff of Anton 15.0 H (11.5-14.5) % Plt Count 201 (130-400) K/uL MPV 10.6 (9.4-12.4) fL Immature Gran % (Auto) 0.7 % Neut % (Auto) 88.2 % Lymph % (Auto) 3.3 % [place] % (Auto) 7.4 % Eos % (Auto) 0.3 % Baso % (Auto) 0.1 % Neut # (Auto) 9.24 H (1.40-6.50) K/uL Lymph # (Auto) 0.35 L (1.2-3.4) K/uL [place] # (Auto) 0.77 H (0.11-0.59) K/uL Eos # (Auto) 0.03 (0-0.50) K/uL Baso # (Auto) 0.01 (0-0.2) K/uL Immature Gran # (Auto) 0.07 (0.01-0.20) K/uL Sodium 139 (136-145) mmol/L Potassium 4.2 (3.5-5.1) mmol/L Chloride 102 (98-107) mmol/L Carbon Dioxide 27 (21-32) mmol/L Anion Gap 10 (3-11) BUN 66 H (6-23) mg/dl Creatinine 2.22 H (0.6-1.4) mg/dl Est Cr Clr Drug Dosing Not Reportable Est GFR ( Amer) 30.6 ml/min Est GFR (Non-Af Amer) 26.4 ml/min BUN/Creatinine Ratio 29.7 H (10-20) Glucose 148 H (70-99(Fasting)) mg/dl Calcium 8.4 L (8.6-10.3) mg/dl Magnesium (1.7-2.4) mg/dl Total Bilirubin 2.1 H (0.2-1.0) mg/dl AST 17 (13-39) U/L ALT 34 (7-52) U/L Alkaline Phosphatase 64 (34-104) U/L Troponin I High Sens 179.4 H* (0-20) pg/ml B-Natriuretic Peptide 1945 H (0-100) pg/ml Total Protein 6.7 (6.0-8.3) gm/dl Albumin 3.6 (3.4-5.0) gm/dl Globulin 3.1 (2.5-4.0) gm/dl Albumin/Globulin Ratio 1.2 (0.9-2) Lipase 17 (11-82) U/L SARS-CoV-2, RNA, NAAT (NEGATIVE) 11/30/22 11/30/22 11/30/22 Range/Units 12:52 14:37 15:03 WBC (4.8-10.8) K/ul RBC (4.70-6.10) M/uL Hgb (14.0-18.0) g/dl Hct (42.0-52.0) % MCV (80.0-100.0) fL MCH (25.0-34.0) pg MCHC (32.0-36.0) g/dL RDW Std Deviation (36.4-46.3) fL RDW Coeff of Anton (11.5-14.5) % Plt Count (130-400) K/uL MPV (9.4-12.4) fL Immature Gran % (Auto) % Neut % (Auto) % Lymph % (Auto) % Penning[place] % (Auto) % Eos % (Auto) % Baso % (Auto) % Neut # (Auto) (1.40-6.50) K/uL Lymph # (Auto) (1.2-3.4) K/uL Pennington # (Auto) (0.11-0.59) K/uL Eos # (Auto) (0-0.50) K/uL Baso # (Auto) (0-0.2) K/uL Immature Gran # (Auto) (0.01-0.20) K/uL Sodium (136-145) mmol/L Potassium (3.5-5.1) mmol/L Chloride (98-107) mmol/L Carbon Dioxide (21-32) mmol/L Anion Gap (3-11) BUN (6-23) mg/dl Creatinine (0.6-1.4) mg/dl Est Cr Clr Drug Dosing Est GFR ( Amer) ml/min Est GFR (Non-Af Amer) ml/min BUN/Creatinine Ratio (10-20) Glucose (70-99(Fasting)) mg/dl Calcium (8.6-10.3) mg/dl Magnesium 2.1 (1.7-2.4) mg/dl Total Bilirubin (0.2-1.0) mg/dl AST (13-39) U/L ALT (7-52) U/L Alkaline Phosphatase (34-104) U/L Troponin I High Sens Cancelled 199.7 H* (0-20) pg/ml B-Natriuretic Peptide (0-100) pg/ml Total Protein (6.0-8.3) gm/dl Albumin (3.4-5.0) gm/dl Globulin (2.5-4.0) gm/dl Albumin/Globulin Ratio (0.9-2) Lipase (11-82) U/L SARS-CoV-2, RNA, NAAT NEGATIVE (NEGATIVE) Administered Medications Discontinued Medications Aspirin (Aspirin Chew 324 Mg) 324 mg PO NOW STA Stop: 11/30/22 14:19 Last Admin: 11/30/22 14:39 Dose: 324 mg Documented By: QGV Furosemide (Furosemide 40 Mg/4 Ml Vial) 40 mg IV ONE ONE Stop: 11/30/22 14:19 Last Admin: 11/30/22 14:39 Dose: 40 mg Documented By: QGV Metoprolol Succinate (Metoprolol Succ 25mg Ext Rel Tab) 25 mg PO NOW STA Stop: 11/30/22 16:07 Last Admin: 11/30/22 17:14 Dose: 25 mg Documented By: DLF Ondansetron HCl (Ondansetron Inj 2 Mg/Ml 2 Ml Vial) 4 mg IV NOW STA Stop: 11/30/22 13:09 Last Admin: 11/30/22 13:30 Dose: 4 mg Documented By: QGV Imaging Data Radiologist's Impression: Chest X-Ray 11/30/22 12:53 XR chest 1V portable HISTORY: 81 years-old Male Chest pain, nonspecific COMPARISON: 11/19/2022 TECHNIQUE: AP view of the chest FINDINGS: Cardiac silhouette is enlarged. Eventration of the right hemidiaphragm. Emphysema with chronic interstitial coarsening. Pulmonary vascular congestion. Calcified pleural plaques redemonstrated. No pneumothorax or large pleural effusion. Degenerative changes of the shoulders and spine. Chronic left-sided rib fractures. IMPRESSION: 1. Cardiomegaly with pulmonary vascular congestion. 2. Emphysema. 3. Calcified pleural plaques redemonstrated. ACT 112: Negative or not required by law. The above report was generated using voice recognition software. It may contain grammatical, syntax or spelling errors. Electronically signed by: Ananth Lopez M.D. 11/30/2022 1:03 PM Discharge Plan Visit Data Chief Complaint: Shortness of Breath/Dyspnea Stated Complaint: SHORTNES OF BREATH ED Provider: Javi Anthony Discharge Problem: CHF (congestive heart failure), Weakness, Elevated troponin, Hypoxia Patient Disposition: Admitted As Inpatient Discharge Instructions Interventions: ED Discharge Assessment Last Done: 11/30/22 16:16
[2022-11-30] MEDS ORDERED: ONDANSETRON INJ 2 MG/ML 2 ML VIAL IV STA (13:08)
[2022-11-30 13:34] LABS: Basophils # (auto) 0.01 K/uL (0-0.2); Basophils % (auto) 0.1 %; Eosinophils # (auto) 0.03 K/uL (0-0.50); Eosinophils % (auto) 0.3 %; Hemoglobin 14.8 g/dl (14.0-18.0); Immature Granulocytes # (auto) 0.07 K/uL (0.01-0.20); Immature Granulocytes % (auto) 0.7 %; Lymphocytes # (auto) 0.35 K/uL (1.2-3.4); Lymphocytes % (auto) 3.3 %; Mean Corpuscular Hemoglobin 32.7 pg (25.0-34.0); Mean Corpuscular Hgb Conc 35.2 g/dL (32.0-36.0); Mean Corpuscular Volume 92.7 fL (80.0-100.0); Mean Platelet Volume 10.6 fL (9.4-12.4); Monocytes # (auto) 0.77 K/uL (0.11-0.59); Monocytes % (auto) 7.4 %; Neutrophils # (auto) 9.24 K/uL (1.40-6.50); Neutrophils % (auto) 88.2 %; Platelet Count 201 K/uL (130-400); RDW Standard Deviation 51.2 fL (36.4-46.3); Red Blood Count 4.53 M/uL (4.70-6.10); White Blood Count 10.47 K/ul (4.8-10.8)
[2022-11-30 13:51] LABS: Alanine Aminotransferase 34 U/L (7-52); Albumin Globulin Ratio 1.2 (0.9-2); Albumin Level 3.6 gm/dl (3.4-5.0); Alkaline Phosphatase 64 U/L (34-104); Anion Gap 10 (3-11); Aspartate Aminotransferase 17 U/L (13-39); BUN Creatinine Ratio 29.7 (10-20); Bilirubin,Total 2.1 mg/dl (0.2-1.0); Blood Urea Nitrogen 66 mg/dl (6-23); Calcium 8.4 mg/dl (8.6-10.3); Carbon Dioxide 27 mmol/L (21-32); Chloride 102 mmol/L (98-107); Est GFR (African American) 30.6 ml/min; Est GFR (Non-African American) 26.4 ml/min; Globulin 3.1 gm/dl (2.5-4.0); Glucose 148 mg/dl (70-99(Fasting)); Lipase 17 U/L (11-82); Potassium 4.2 mmol/L (3.5-5.1); Sodium 139 mmol/L (136-145); Total Protein 6.7 gm/dl (6.0-8.3)
[2022-11-30 13:54] LABS: Troponin I High Sensitivity 179.4 pg/ml (0-20)
[2022-11-30] MEDS ORDERED: ASPIRIN CHEW 324 MG PO STA (14:18)
[2022-11-30] MEDS ORDERED: FUROSEMIDE 40 MG/4 ML VIAL IV ONE (14:18)
--- NOTE | 2022-11-30 14:51 | History & Physical Report ---
Date of Service November 30, 2022 Assessment & Plan (1) Acute on chronic HFrEF (heart failure with reduced ejection fraction): Plan: suspected exacerbation of acute on chronic heart failure -- multifactorial including IVF in ER, recently stopped his metoprolol, dc amio as had been attempted for more frequent afib (but suspect more chronic/permanent in nature) as well as recent steroid use for cough/congestion, also albuterol use while off metoprolol worsening elevated afib/rvr. BUT, then was also at [place], steroid rx again HRs stable at rest but significantly elevated w/ ambulation prior ECHO September 2021 -- LV size normal/wall thickness normal. Systolic function mildy reduced, EF 40-45%. Mild diffuse hypokineses. Mild-mod MR. Mild AR. CXR w/ cardiomegaly w/ pulmonary vascular congestion Monitor on telemetry Continue lasix 40mg IV BID (recently increased torsemide from 10mg daily to 20mg BID since last Wednesday) but suspect could back down on such once HRs controlled by morning Check BNP/Mag Check ECHO Monitor weights/I&Os Weight currently 245lb in system w/ prior reported dry weight 218lb Cards consulted -- follows with Dr Reyes. Also place CHF consult ref for f/u as daughter also agreed she would like him to be followed there Trend troponin 179.4--> 199.7. no cp reported. suspect combo volume overload/elevated HRs at home. BP also elevated schedule metoprolol 25mg x 1 NOW, then resume QPM for tomorrow Repeat TSH w/ T4/T3 in AM Will hold off further amiodarone for now -- defer to cards Monitor labs on repeat Req records from [place] recent stay for more information regarding possible IVF/steroids, ?treatment for copd exacerbation appears (2) Paroxysmal atrial flutter: Plan: afib/flutter on exam/ekg -- suspect more permanent in nature vs just more frequent as he's been off his metoprolol monitor on telemetry as above continue Eliquis, dosed for renal function metoprolol succinate 25mg x 1 now, schedule daily for tomorrow cards on consult as above -- ?benefit from attempt at ablation keep K~4, Mag ~2 defer amio to cards, but placed on hold. prior on digoxin (3) Hypertension: Plan: Continue metoprolol as able (told to hold last week) w/ hold parameters -- first dose NOW given BP 163/100 Will hold lisinopril while using diuretics (4) Hyperlipidemia: Plan: statin intolerant (5) History of pulmonary embolism: Plan: noted b/l on eliquis BID, continued (6) Coronary artery disease: Plan: hx CAD (RCA BMS 1995), ischemic cardiomyopathy (EF 40-45%) Continue BB, eliquis, aspirin. not able to tolerate statin (7) Diabetes mellitus, type 2: Plan: not on meds check A1c w/ AM labs (8) History of MD (myocardial infarction): Plan: noted, hx stenting w BMS to RCA as above trend troponin, echo, consider cards consult (9) COPD (chronic obstructive pulmonary disease): Plan: hx such holding nebs (stated not able to tolerate, likely causing elevation HR/afib RVR) incentive spirometer monitor on exam w/ diuresis consider adding mucinex to help w/ secretions. No overt PNA on CXR req records from [place] as above (10) Chronic kidney disease, stage 3 (moderate): Plan: BUN/Cr 66/2.2, suspected volume overload lisinopril as above on hold while lasix 40mg IV BID for now renal dose meds/avoid nephrotoxic agents monitor BMP in AM (11) Carotid artery stenosis: Plan: noted hx CEA, followed by vascular continue eliquis/aspirin Plan will consult PT/OT to see about HH at in vs rehab will need f/u CHF clinic CM navigator notified to contact pharmacy at d/c to ensure right meds /dosing/frequency -- he uses pill packs through pharmacy History of Present Illness Chief Complaint: weight gain, shortness of breath Primary Care Provider: [facility] 81yo male with PMHx significant for combined systolic/diastolic CHF, paroxysmal atrial fibrillation (on eliquis), HTN, HLD (statin intolerant), CVA (R CEA in June 2019 w/ Dr Almazan), PVD (R SFA stent Aug 2006), CAD (RCA BMS 1995), ischemic cardiomyopathy (EF 40-45%) presented with increased LE swelling and 15lb weight gain over the past month along with a cough/congestion. CXR on admission w/ cardiomegaly with pulmonary vascular congestion, emphysema. Of note, CXR on 11/19 for ER visit also noted pulm congestion as well, however patient was provided 1L @ 125cc/hr before repeat labs drawn w/ improvement in lactic/no significant bump in troponin and was discharged. Union weak/nauseated after starting amiodarone for afib w/ reportedly blackened stools. He notes recent meds w/ amiodarone in place of the digoxin by Dr Reyes in September due to frequent episodes of his afib and during 11/20 appointment was told to hold amiodarone and metoprolol at that time. Reported feeling better off the amiodarone and less nausea. Still slightly light headed at that time with episodes of afib/symptoms occuring at least once daily but he "doesn't keep track" He confirms he has not taken his metoprolol since his appointment and has no significant improvement Got patient up to use urinal and telemetry up to the 130-140s. Discussed resuming metoprolol given likely elevated HR contributing to fluid retention. He notes he also was given prednisone for his cough w/o any improvement and he had increased LE swelling. Having difficulty sleeping at night/waking up, feeling like he is drowning. Coughing up salas colored phlegm, coughing fits, some blood tinge sputum at times w/ sputum but no mundo hemoptysis. To alert if any worsening. He note, increased dose torsemide to 20mg BID end of last weekend on Wednesday (recently decided to make his PCP Dr Arango from the [place]). Was also given some steroids at that time, also suspect could be contributing to fluid retention. Weights steadily increasing, prior "dry weight" of 218lb, reported 15lb weight gain in past 2 weeks. Weight 106.1kg on 11/20, currently 111.4kg (245lb) Discussed resuming his metoprolol as suspect rate control relating to volume retention. He is agreeable. Daughter Kelly at bedside (works in [employer]). Patient has been independent at home recently but did have a stay at rehab over a year ago for falls/cellulitis and hadn't ever been the same but that he has been independent at home recently. Confirmed Full Code for CPR/intubation if was for short term but does not want any intermediate/heroic measures. Denies chest pain at present. ER Course: Lasix 40mg IV x 1, ASA 324 mg x1, zofran 4mg IV x 1. CXR w/ congestion. Troponin 179.4 on initial draw WBC 10.4k (recent steroid use), chemistry w/ Na 139, K 4.2. BUN/Cr 66/2.22 (was 40/2.3 when see in ER 11/19) BNP added along with magnesium -- pending. Allergies Allergy/AdvReac Type Severity Reaction Status Date / Time ciprofloxacin Allergy Intermediate Rash Verified 11/30/22 14:51 warfarin Allergy Intermediate hives, rash Verified 11/30/22 14:51 niacin AdvReac Severe LEG Verified 11/30/22 14:51 [From Niaspan WEAKNESS Extended-Release] Yumcdff-TSB-BpZ Reductase AdvReac Severe muscle Verified 11/30/22 14:51 Inhibitor weakness,pain, [Vanevvl-Ini-Rmj Reductase cramps Inhibitor] umeclidinium AdvReac Unknown "NOT Verified 11/30/22 14:51 [From Anoro Ellipta] ALLERGIC,DOES NOTHING FOR ME" vilanterol AdvReac Unknown "NOT Verified 11/30/22 14:51 [From Anoro Ellipta] ALLERGIC, DOES NOTHING FOR ME" Home Medications Medication Instructions Recorded Confirmed Type finasteride 5 mg tablet 5 mg PO QAM 06/28/20 11/30/22 History polyethylene glycol 3350 17 gram 17 g PO BID PRN Constipation 04/03/21 11/30/22 History oral powder packet (Miralax) nitroglycerin 0.4 mg sublingual 0.4 mg sublingual Q5M PRN chest 09/03/2211/30 Rx tablet pain #25 tabs amiodarone 200 mg tablet 200 mg PO BID #60 tabs 10/01/22 11/30/22 Rx aspirin 81 mg tablet,delayed 81 mg PO QPM 11/19/22 11/30/22 History release cholecalciferol (vitamin D3) 50 50 mcg PO QAM 11/19/22 11/30/22 History mcg (2,000 unit) capsule metoprolol succinate 25 mg 25 mg PO QPM 11/19/22 11/30/22 History tablet,extended release 24 hr ondansetron 4 mg disintegrating 4 mg PO Q8H PRN nausea and 11/19/22 11/30/22 Rx tablet vomiting #30 tabs potassium chloride 10 mEq 20 meq PO QAM 11/19/22 11/30/22 History tablet,extended release torsemide 10 mg tablet 10 mg PO QAM 11/19/22 11/30/22 History apixaban 2.5 mg tablet (Eliquis) 2.5 mg PO BID #60 tabs 11/20/22 11/30/22 Rx lisinopril 2.5 mg tablet 2.5 mg PO QAM #90 tabs 11/27/22 11/30/22 Rx furosemide 20 mg tablet 20 mg PO DAILY 11/30/22 11/30/22 History ipratropium 0.5 mg-albuterol 3 mg 3 ml inhalation DIRECTED 11/30/22 11/30/22 History (2.5 mg base)/3 mL nebulization soln prednisone 20 mg tablet 40 mg PO DAILY 11/30/22 11/30/22 History Past Med/Surg History Medical History Acute lower GI bleeding Anemia Anorectal fistula Arthritis Asthma Atrial fibrillation Carotid artery stenosis >70% NEHAL, <50% LICA Chronic kidney disease, stage 3 (moderate) COPD (chronic obstructive pulmonary disease) Coronary artery disease Remote h/o stent to RCA. Stent patent on 2005 cath per cardio. Degenerative arthritis of right knee Diabetes mellitus, type 2 Diastolic congestive heart failure Eczema Erectile dysfunction H/O difficult intubation Glidescope 2011 lap tracie History of anesthesia reaction SOMETIMES COMES OUT SWINGING History of MD (myocardial infarction) TOTAL OF 3 History of pulmonary embolism (02/2011) HX BILATERAL Hyperlipidemia Hypertension On anticoagulant therapy PAD (peripheral artery disease) (03/14/14) L common iliac angioplasty/stent, stenting of totally occluded R SFA, angioplasty of occluded RCF 2006. Angioplasty to R SFA in-stent stenosis 2013. PVCs (premature ventricular contractions) Restrictive lung disease Right lower lobe pulmonary nodule Noted on CT 04/03, 12mo f/u recommended. 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 S/P cataract surgery R/L S/P coronary artery stent placement (1995) RCA Status post angioplasty (2013) to R SFA in stent stenosis Status post surgery (12/15/17) placement of seton drain in transsphinteric fistula - 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 AND ALWAYS IS DRAINING Family History Mother Thyroid disease Family history of diabetes mellitus Father Coronary heart disease Emphysema of lung Family history of diabetes mellitus Uncle Family history of colon cancer Denies family history of Colon cancer Ovarian cancer Prostate cancer Myocardial infarction Breast cancer Lung cancer Colorectal cancer Social History Smoking Status: Current every day smoker Tobacco Type: Pipe Cigarettes Per Day: COUPLE TIMES A DAY TO SMOKE PIPE; Second Hand Exposure: No; Do You Dip or Chew Tobacco: No; Tobacco Cessation Education Requested by Patient: Yes Hx Alcohol Use: No Hx Substance Use: No Preferred Language: Welsh Communication Ability: Effective Communication Ability Comment: PHONE INTERVIEW DONE WITH DAUGHTERSHADE PER PT REQUEST Visual Impairment: No Limitations Hearing Ability: Use of Hearing Aid Full Stack Developer Required: No Beliefs That Will Affect Care: None marital status: / Current Living Situation: Alone Current Living Situation Comment: lives alone in apartment current occupational status: retired How many Children do You have: 2 Other Information That Helps Us Care for You: No Feels Safe at Home: Yes Safety Concerns: Feels Safe At This Time Childhood Exposure to Second-Hand Smoke: No Diet Comment: regular caffeine: Yes (2-3 cups coffee) during the past year weight has: increased > 10 lbs Dental Care, Regularly: Yes Physical Activity Frequency: 1-2 Times per Week Seatbelt Use: always Sunscreen Use: Yes Assistive Devices: Cane, Denture - Upper, Glasses, Hearing Aid - Bilateral and Walker Assistive Devices Comment: hearing aids not with patient at this time Physical Exam Physical Exam: General: chronically ill appearing male sitting up in bed, no acute distress but needing to get up to urinate -- urinal w/ 100-150 clearer yellow urine draining HEENT: head normocephalic, prior scar from CEA noted, mmm, trachea midline Resp: diffuse wheezing bilaterally, diminished in the bases, on 2L NC, able to talk in completes sentences but does get winded, +cough CV: irregularly irregular, no obvious murmur, 2-3+ pitting edema to the thighs, pulses palpable, chronic venous stasis changes noted GI: +BS, slight distension, NT : no bills, urinal at bedside MSK/Neuro: no focal deficit, no confusion, answering questions appropriately, strength equal bilaterally Psych: AOx3, cooperative Results & Data Results & Data Vital Signs (Past 12 Hours) Vital Signs Temp Pulse Resp BP Pulse Ox O2 Del Method O2 Flow Rate 11/30/22 13:30 90 Room Air, Nasal Cannula 0 11/30/22 13:07 97 Room Air, Nasal Cannula 2 11/30/22 12:53 69 18 96 Room Air 11/30/22 12:29 36.4 C L 78 18 160/108 H 94 Room Air 11/30/22 12:48 84 Laboratory Results 11/30/22 11/30/22 11/30/22 Range/Units 15:03 14:37 12:52 WBC (4.8-10.8) K/ul RBC (4.70-6.10) M/uL Hgb (14.0-18.0) g/dl Hct (42.0-52.0) % MCV (80.0-100.0) fL MCH (25.0-34.0) pg MCHC (32.0-36.0) g/dL RDW Std Deviation (36.4-46.3) fL RDW Coeff of Anton (11.5-14.5) % Plt Count (130-400) K/uL MPV (9.4-12.4) fL Immature Gran % (Auto) % Neut % (Auto) % Lymph % (Auto) % [place] % (Auto) % Eos % (Auto) % Baso % (Auto) % Neut # (Auto) (1.40-6.50) K/uL Lymph # (Auto) (1.2-3.4) K/uL [place] # (Auto) (0.11-0.59) K/uL Eos # (Auto) (0-0.50) K/uL Baso # (Auto) (0-0.2) K/uL Immature Gran # (Auto) (0.01-0.20) K/uL Sodium (136-145) mmol/L Potassium (3.5-5.1) mmol/L Chloride (98-107) mmol/L Carbon Dioxide (21-32) mmol/L Anion Gap (3-11) BUN (6-23) mg/dl Creatinine (0.6-1.4) mg/dl Est Cr Clr Drug Dosing Est GFR ( Amer) ml/min Est GFR (Non-Af Amer) ml/min BUN/Creatinine Ratio (10-20) Glucose (70-99(Fasting)) mg/dl Calcium (8.6-10.3) mg/dl Magnesium Pending Total Bilirubin (0.2-1.0) mg/dl AST (13-39) U/L ALT (7-52) U/L Alkaline Phosphatase (34-104) U/L Troponin I High Sens 199.7 H* Cancelled (0-20) pg/ml B-Natriuretic Peptide Total Protein (6.0-8.3) gm/dl Albumin (3.4-5.0) gm/dl Globulin (2.5-4.0) gm/dl Albumin/Globulin Ratio (0.9-2) Lipase (11-82) U/L SARS-CoV-2, RNA, NAAT NEGATIVE (NEGATIVE) 11/30/22 11/30/22 11/30/22 Range/Units 12:52 12:52 12:47 WBC 10.47 (4.8-10.8) K/ul RBC 4.53 L (4.70-6.10) M/uL Hgb 14.8 (14.0-18.0) g/dl Hct 42.0 (42.0-52.0) % MCV 92.7 (80.0-100.0) fL MCH 32.7 (25.0-34.0) pg MCHC 35.2 (32.0-36.0) g/dL RDW Std Deviation 51.2 H (36.4-46.3) fL RDW Coeff of Anton 15.0 H (11.5-14.5) % Plt Count 201 (130-400) K/uL MPV 10.6 (9.4-12.4) fL Immature Gran % (Auto) 0.7 % Neut % (Auto) 88.2 % Lymph % (Auto) 3.3 % [place] % (Auto) 7.4 % Eos % (Auto) 0.3 % Baso % (Auto) 0.1 % Neut # (Auto) 9.24 H (1.40-6.50) K/uL Lymph # (Auto) 0.35 L (1.2-3.4) K/uL [place] # (Auto) 0.77 H (0.11-0.59) K/uL Eos # (Auto) 0.03 (0-0.50) K/uL Baso # (Auto) 0.01 (0-0.2) K/uL Immature Gran # (Auto) 0.07 (0.01-0.20) K/uL Sodium 139 (136-145) mmol/L Potassium 4.2 (3.5-5.1) mmol/L Chloride 102 (98-107) mmol/L Carbon Dioxide 27 (21-32) mmol/L Anion Gap 10 (3-11) BUN 66 H (6-23) mg/dl Creatinine 2.22 H (0.6-1.4) mg/dl Est Cr Clr Drug Dosing Not Reportable Est GFR ( Amer) 30.6 ml/min Est GFR (Non-Af Amer) 26.4 ml/min BUN/Creatinine Ratio 29.7 H (10-20) Glucose 148 H (70-99(Fasting)) mg/dl Calcium 8.4 L (8.6-10.3) mg/dl Magnesium Total Bilirubin 2.1 H (0.2-1.0) mg/dl AST 17 (13-39) U/L ALT 34 (7-52) U/L Alkaline Phosphatase 64 (34-104) U/L Troponin I High Sens 179.4 H* (0-20) pg/ml B-Natriuretic Peptide Pending Total Protein 6.7 (6.0-8.3) gm/dl Albumin 3.6 (3.4-5.0) gm/dl Globulin 3.1 (2.5-4.0) gm/dl Albumin/Globulin Ratio 1.2 (0.9-2) Lipase 17 (11-82) U/L SARS-CoV-2, RNA, NAAT (NEGATIVE) Diagnostic Findings Chest X-Ray 11/30/22 12:53 XR chest 1V portable HISTORY: 81 years-old Male Chest pain, nonspecific COMPARISON: 11/19/2022 TECHNIQUE: AP view of the chest FINDINGS: Cardiac silhouette is enlarged. Eventration of the right hemidiaphragm. Emphysema with chronic interstitial coarsening. Pulmonary vascular congestion. Calcified pleural plaques redemonstrated. No pneumothorax or large pleural effusion. Degenerative changes of the shoulders and spine. Chronic left-sided rib fractures. IMPRESSION: 1. Cardiomegaly with pulmonary vascular congestion. 2. Emphysema. 3. Calcified pleural plaques redemonstrated. ACT 112: Negative or not required by law. The above report was generated using voice recognition software. It may contain grammatical, syntax or spelling errors. Electronically signed by: Ananth Lopez M.D. 11/30/2022 1:03 PM Supervising Physician Co-Signing Physician Notes I personally saw and examined the patient. I verified all ray points and agree with Leigh Bauman PA-C with the following exceptions and/or additions: 81 year old male with known congestive heart failure and COPD presents to the ER with weight gain, leg edema and shortness of breath. Very difficult to get a clear history from the patient as unable to remember exact events, timelines or medications. He also does not appear to be taking medications as prescribed. From what I can piece together he was started on amiodarone in September as his atrial flutter/fibrillation was noted to be paroxysmal therefore presumably to help him spend more time in NSR. He went to the ER November 19 with lightheadedness, he was not hypotensive but was noted to be bradycardic. As far as I can tell the NSS ordered was rapidly discontinued after only 2 minutes therefore he received neither the bolus or the 125ml/hr infusion. The only medication given was Ondansetron. Impressively his lactate improved from 2.8 -> 1.3 therefore without intervention. Admission was initially advised due to elevated lactic acid and troponin but he declined and subsequent troponin was s table - he was discharged home with some ondansetron. The patient decided his symptoms were due to amiodarone so self discontinued this and he followed up the next day with cardiology who also discontinued his metoprolol due to bradycardia. Unclear what symptoms (possible shortness of breath) he had exactly following this but he was admitted to [facility] last week (unknown admissi on date) and discharged on November 27. Discharge summary from this hospitalization not available on admission, however, discharge medications pieced together from [facility] include Lasix 20mg PO (presumed daily given 28 day supple and 28 pills) and prednisone 40mg PO 3 days. Unclear why he was switched from torsemide to furosemide. He is pretty unclear on whether he is taking this new furosemide or his normal torsemide of both - the best I can gather he thinks he is taking furosemide 20mg PO BID although I am skeptical of this. He also thinks he was taking double the dose of torsemide at some point. Following discharge from [place] he reports sudden significant weight gain, shortness of breath, orthopnea, PND and leg swelling. Given his confusion with his medications even though he is prescribed medications listed above I am not clear he is taking them properly and advised daughter to bring in his pills. O/E HS irregular rhythm, regular rate, no murmurs, elevated JVD, pitting edema equal b/l 2+, Chest bibasal crackles, end expiratory wheeze, Abdo SNT A/P Acute on chronic heart failure with reduced ejection fraction - presumably due to under diuresis from confusion regarding medications from recent hospital discharge +/- stopping metoprolol +/- prednisone causing fluid retention +/- albuterol making tachycardia worse. Use Lasix 40mg IV BID now but plan to switch back to torsemide on discharge. Daughters to help out with his medications and HIM requested for recent hospital discharge. Strict I&Os, daily weights. Repeat TTE. Consult cardiology and heart failure clinic. COPD - apparently has this diagnosis but on no maintenance inhalers. I suspect his recent shortness of breath has all been CHF and no indication for steroids. Otherwise as above PG Care Time/CCT Total # of Minutes Spent Total Time Spent with Patient: Total time spent is greater than 50% in coordination of care (as documented) at patient's floor/unit and/or counseling patient: Coding Level of Care Code 13616 INT INP/OBS CARE 3/75MIN Diagnoses Acute on chronic HFrEF (heart failure with reduced ejection fraction) I50.23 Paroxysmal atrial flutter I48.92 Hypertension I10 Hypertension type: essential hypertension Hyperlipidemia E78.5 Hyperlipidemia type: unspecified History of pulmonary embolism Z86.711 Coronary artery disease I25.10 Associated angina: without angina Coronary Disease-Associated Artery/Lesion type: [place] artery [place] vs. transplanted heart: [place] heart Diabetes mellitus, type 2 E11.9 History of MD (myocardial infarction) I25.2 COPD (chronic obstructive pulmonary disease) J44.9 COPD type: unspecified COPD Chronic kidney disease, stage 3 (moderate) N18.3 Carotid artery stenosis I65.29 (3) Hypertension Hypertension type: essential hypertension Qualified Code(s): I10 - Essential (primary) hypertension (4) Hyperlipidemia Hyperlipidemia type: unspecified Qualified Code(s): E78.5 - Hyperlipidemia, unspecified (6) Coronary artery disease Associated angina: without angina Coronary Disease-Associated Artery/Lesion type: [place] artery [place] vs. transplanted heart: [place] heart Qualified Code(s): I25.10 - Atherosclerotic heart disease of [place] coronary artery without angina pectoris (9) COPD (chronic obstructive pulmonary disease) COPD type: unspecified COPD Qualified Code(s): J44.9 - Chronic obstructive pulmonary disease, unspecified
[2022-11-30] MEDS ORDERED: METOPROLOL SUCC 25MG EXT REL TAB PO STA (16:06)
[2022-11-30] MEDS ORDERED: ONDANSETRON INJ 2 MG/ML 2 ML VIAL IV PRN (16:40)
[2022-11-30] MEDS ORDERED: POLYETHYLENE (MIRALAX) 17 GM PACK PO PRN (16:40)
[2022-11-30] MEDS ORDERED: ACETAMINOPHEN 325 MG TAB PO PRN (16:40)
[2022-11-30] MEDS ORDERED: NITROGLYCERIN SL 0.4 MG/TAB TAB SL PRN (16:40)
[2022-11-30] MEDS: FUROSEMIDE 40 MG/4 ML VIAL IV SCH (18:39)
[2022-11-30] MEDS ORDERED: FUROSEMIDE 40 MG/4 ML VIAL IV SCH (21:00)
[2022-11-30] MEDS: ASPIRIN 81 MG ECTAB PO SCH (21:02)
[2022-11-30] MEDS: APIXABAN 2.5 MG TAB PO SCH (21:02)
[2022-12-01 05:16] LABS: Albumin Globulin Ratio 1.1 (0.9-2); Albumin Level 3.4 gm/dl (3.4-5.0); BUN Creatinine Ratio 28.5 (10-20); Bilirubin,Total 2.9 mg/dl (0.2-1.0); Calcium 8.2 mg/dl (8.6-10.3); Chol HDL Ratio 3.6 (0-5); Creatinine Clr Calc Pharmacy 28.7 ml/min; Est GFR (African American) 28.6 ml/min; Est GFR (Non-African American) 24.7 ml/min; Magnesium 2.1 mg/dl (1.7-2.4); Potassium 4.2 mmol/L (3.5-5.1); Total Protein 6.4 gm/dl (6.0-8.3)
[2022-12-01 05:17] LABS: Hematocrit (blood only) 42.4 % (42.0-52.0); Hemoglobin 14.4 g/dl (14.0-18.0); Mean Corpuscular Hemoglobin 32.6 pg (25.0-34.0); Mean Corpuscular Volume 95.9 fL (80.0-100.0); Mean Platelet Volume 10.5 fL (9.4-12.4); Platelet Count 210 K/uL (130-400); RDW Coefficient of Variation 14.9 % (11.5-14.5); RDW Standard Deviation 52.6 fL (36.4-46.3); Red Blood Count 4.42 M/uL (4.70-6.10); White Blood Count 9.37 K/ul (4.8-10.8)
[2022-12-01 05:23] LABS: INR 1.1 (0.9-1.1); Prothrombin Time 12.1 Seconds (9.0-12.0)
[2022-12-01 05:31] LABS: Troponin I High Sensitivity 157.9 pg/ml (0-20)
[2022-12-01 05:46] LABS: T3 Free 2.16 pg/ml (2.3-4.2)
[2022-12-01 05:59] LABS: Vitamin D, 25 Hydrox 52.3 ng/ml (30-100)
[2022-12-01 08:04] LABS: Estimated Average Glucose 126 mg/dl
--- NOTE | 2022-12-01 08:08 | Hospitalist Progress Note ---
Date of Service December 01, 2022 Assessment & Plan (1) Acute on chronic HFrEF (heart failure with reduced ejection fraction): Plan: Hx CHF with some suspected confusion with medications in the recent past, Cardiology and CHF Program asked to see patient to clarify home regimen. With complaints of SOB, weight gain on admission. CXR with pulmonary vascular congestion. Echo 12/01/22 with moderate to severely reduced EF 30-35%, decreased compared to 40-45% on Echo 09/2021. Troponin trend mild elevation without evidence of ACS on EKG. Dry weight reported at 218lb, on admission weight was 245->223 with diuresis. Net negative ~2500mL, continue Lasix 40mg IV BID and await Cardiology recommendations. Requested records from [place] recent stay for more information regarding possible IVF/steroids, ?treatment for COPD exacerbation. (2) COPD (chronic obstructive pulmonary disease): Plan: History of, not on supplemental oxygen at home. Continues to smoke a pipe at times, encouraged cessation. On room air and comfortable at this time. Duonebs x1 day for ongoing wheezing. Saline nebs and Mucinex for sputum. Has a smoking history, no CT with contrast on chart suspected due to CKD with low GFR. Suspect sputum is due to frequent COPD-related cough in patient on Eliquis. Was previously on Advair, will resume this admission. Recommend follow up with [facility] Nurse for formal PFTs and further titration of inhalers if needed, as well as possible ongoing work up of blood-tinged sputum. Two-step on discharge to ensure no need for home O2 with ambulation. (3) Paroxysmal atrial flutter: Plan: History of, not in RVR this admission. Continue Eliquis and metoprolol succinate, further medication changes per Cardiology. (4) Hypertension: Plan: History of, (5) Hyperlipidemia: Plan: History of, intolerant of statins. Follow up with Cardiology outpatient. (6) History of pulmonary embolism: Plan: Continue Eliquis. (7) Coronary artery disease: Plan: Continue aspirin, lisinopril, beta farida. Would recommend cholesterol medication however patient is intolerant of statins. (8) Diabetes mellitus, type 2: Plan: A1c 6.0% with diet control. Discontinued accuchecks per patient request, have been within range. DM2 diet. Jardiance could be considered however not recommended in patients with GFR <20, which patient is very close to at baseline. However, it would be a therapy that coudle be considered for CKD, CHF, and DM2. Will follow up with Cardiology. (9) Chronic kidney disease, stage 3 (moderate): Plan: With baseline GFR in mid 20s, and creatinine baseline widely variable in 1.7-2.2 range. Creatinine 2.3 today, continue to monitor especially in setting of IV diuresis. Plan Ultimately will need CM and patient's pharmacy assistance with arranging pill packs (once medications ironed out) and getting up to date medical list for discharge to minimize medication confusion. Admission and Anticipated Discharge Date Admission Date: November 30, 2022 Subjective Patient without any acute events overnight. Reports improvement in SOB, still with some sputum with blood tinge, notes some instances of this since starting blood thinners. Denies chest pain. Reports good urine output. Denies other complaints. Review of Systems Review of Systems: All systems reviewed & are unremarkable except as noted in Subjective Physical Exam Constitutional: WD/WN, vitals as above Respiratory: good air movement, expiratory wheezing intermittent bilaterally Cardiovascular: HR irregularly irregular, no murmurs, bilateral 2+ pitting edema to knee Gastrointestinal (Abdomen): normal bowel sounds, soft, nontender, no hepatosplenomegaly Skin: Chronic venous stasis changes to bilateral legs/feet with cool toes Psychiatric: A+Ox3, euthymic affect Results & Data Results & Data Vital Signs (Past 12 Hours) Vital Signs Temp Pulse Pulse Resp BP Pulse Ox O2 Del Method 12/01/22 04:00 36.4 C L 63 18 136/74 96 Nasal Cannula 11/30/22 22:45 36.6 C 64 16 148/69 H 94 Nasal Cannula 11/30/22 22:00 64 O2 Flow Rate 12/01/22 04:00 2 11/30/22 22:45 2 11/30/22 22:00 PG Care Time/CCT Total # of Minutes Spent Total Time Spent with Patient: Total time spent is greater than 50% in coordination of care (as documented) at patient's floor/unit and/or counseling patient: Coding Level of Care Code 29782 SUB INP/OBS CARE 3/50MIN Diagnoses Acute on chronic HFrEF (heart failure with reduced ejection fraction) I50.23 COPD (chronic obstructive pulmonary disease) J44.9 COPD type: unspecified COPD Paroxysmal atrial flutter I48.92 Hypertension I10 Hypertension type: essential hypertension Hyperlipidemia E78.5 Hyperlipidemia type: unspecified History of pulmonary embolism Z86.711 Coronary artery disease I25.10 Associated angina: without angina Coronary Disease-Associated Artery/Lesion type: [place] artery [place] vs. transplanted heart: [place] heart Diabetes mellitus, type 2 E11.9 Chronic kidney disease, stage 3 (moderate) N18.3 (2) COPD (chronic obstructive pulmonary disease) COPD type: unspecified COPD Qualified Code(s): J44.9 - Chronic obstructive pulmonary disease, unspecified (4) Hypertension Hypertension type: essential hypertension Qualified Code(s): I10 - Essential (primary) hypertension (5) Hyperlipidemia Hyperlipidemia type: unspecified Qualified Code(s): E78.5 - Hyperlipidemia, unspecified (7) Coronary artery disease Associated angina: without angina Coronary Disease-Associated Artery/Lesion type: [place] artery [place] vs. transplanted heart: [place] heart Qualified Code(s): I25.10 - Atherosclerotic heart disease of [place] coronary artery without angina pectoris
[2022-12-01] MEDS: CHOLECALCIFEROL 1,000 UNITS 25 MCG TAB PO SCH (08:55)
[2022-12-01] MEDS: APIXABAN 2.5 MG TAB PO SCH ×2 (08:55→21:30)
[2022-12-01] MEDS: FINASTERIDE 5 MG TAB PO SCH (08:55)
[2022-12-01] MEDS: POTASSIUM CHLORIDE CRTAB 20 MEQ TABCR PO SCH (08:55)
[2022-12-01] MEDS: FUROSEMIDE 40 MG/4 ML VIAL IV SCH ×2 (08:56→18:11)
--- NOTE | 2022-12-01 10:38 | XCELERA ---
[id number] \\[id number]}___[id number]
[2022-12-01] MEDS: FLUTICASONE/VILANTEROL 200/25MCG 14 PUFFS/INHALER INH SCH (17:21)
--- NOTE | 2022-12-01 17:55 | Cardiology Consultation ---
Date of Consultation December 01, 2022 Assessment & Plan (1) Acute on chronic HFrEF (heart failure with reduced ejection fraction): (2) Atrial flutter: (3) Coronary artery disease: (4) Ischemic cardiomyopathy: (5) Mitral regurgitation: (6) Elevated troponin: (7) Hypertension: (8) Hyperlipidemia: Plan ASSESSMENT/PLAN: 1. Acute on chronic heart failure with reduced EF: He is hypervolemic. Continue diuresis with a goal of 1 to 2 L negative net fluid balance per day. Titration of beta-farida will be limited due to bradycardia. Recommend Entresto in place of lisinopril after 36 hours of no lisinopril, if renal function can tolerate. Would first diuresis. No spironolactone given current renal function. Consider SGLT2 inhibitor in the future if renal function allows, but medical therapy may be somewhat limited due to his other comorbidities. Low-sodium diet, less than 2000 mg daily. Daily weights and strict I's and O's while hospitalized. Heart failure program. He met with Kierra Santos today. 2. Ischemic cardiomyopathy: Optimizing medical therapy will be challenging given renal function and bradycardia. He has been on metoprolol succinate and low-dose SOLA inhibitor as an outpatient. Consideration for ICD for primary prevention, especially if unable to titrate medical therapy. 3. CAD s/p PCI: He reports multiple PCI in the past but no cardiac catheterization for 10 or more years. No angina. Elevated troponin likely due to heart failure exacerbation in the setting of CKD. Wall motion abnormalities appear to be chronic when comparing previous echoes. LV systolic distal patient also appears chronic. No urgent indication for cardiac catheterization at this time. Recommend optimizing volume status and reassess. Intolerant to statin therapy per records. Beta-farida as tolerated as above. Continue aspirin 81 mg daily indefinitely. 4. Dyslipidemia: Intolerant to statin therapy per records. Consider PCSK9 inhibitor, which can be managed as an outpatient. 5. Hypertension: Blood pressure has mostly been normotensive today. Diuresing as above. 6. Atrial flutter: Became more significantly bradycardic while on amiodarone after less than 2 months of therapy. Titration of beta-farida for heart failure/cardiomyopathy will be challenging due to bradycardia. Atrial flutter could be worsening CHF. Consideration for cardioversion at some point, which could be challenging given bradycardia as we do not know what his sinus rate will be. If undergoes ICD, may be able to more aggressively manage his arrhythmia with rhythm control strategy. We will consider discussing with electrophysiology. Continue anticoagulation for stroke risk reduction. Atrial flutter seems to be persistent. 7. Elevated troponin: Did not present with acute coronary syndrome. Likely due to known underlying CAD in the setting of heart failure exacerbation and CKD. 8. Mitral regurgitation: Could be due to hypervolemic state but could also be contributing to heart failure. Diuresis as above. Can consider reevaluating in the near future and if still significant, consider corrective measures, if option and if he is interested. This may be challenging in the setting of reduced LV systolic function. 9. Disposition: Cardiology will continue to follow. We will continue to follow along until Dr. Reyes returns. Follow-up with Dr. Reyes on discharge. Heart failure program on discharge. Patient care communicated with ginny [facility]. Highly complex medical issues. Thank you for allowing me to participate in the care of your patient. Please call for any other questions or concerns. Sincerely, Kishore Jimenez M.D. History of Present Illness Reason for Consultation: Acute CHF Requesting Physician: Radha Hsu DO Attending Physician: Radha Hsu DO History of Present Illness Mr. Multani is a very pleasant 81-year-old gentleman with a history significant for CHF, CAD s/p multiple PCI (4), peripheral arterial disease s/p 10 stents between bilateral lower extremities, pulmonary embolism, dyslipidemia (statin intolerant), hypertension, atrial flutter, type 2 diabetes, COPD, CKD, carotid artery stenosis s/p right carotid endarterectomy, stroke, ischemic cardiomyopathy. His primary microsoft bi architect is Dr. Reyes. He presented and was admitted on 11/30/2022 with worsening shortness of breath and nausea. He has had orthopnea and worsening dyspnea with exertion for the past few months. He feels better when using supplemental oxygen but does not have it readily available. He has had a cough with brown/green/thick/occasional bloody sputum. He has had worsening edema for the past month or so. He has gained approximately 20 pounds in the past month. He reports a dry weight of 215 pounds and weighs himself daily. While here, he has received diuretic in has noted increased urine output and is feeling better but not back to baseline. He has bilateral lower extremity claudication described as myalgias with walking, right leg worse than the left. He denies chest pain, syncope, near syncope, palpitations, melena, hematochezia, hematuria. He follows with Dr. Cheney for nephrology. He admits that he has difficulty taking pills and requests that on discharge she receives pill packets. He admits that he is not entirely clear what medications he is taking. History and physical reports taking both Lasix and torsemide. According to outpatient cardiology records, he has been on torsemide 10 mg daily. Amiodarone was initiated on 10/01/[address] Reyes at 200 mg twice daily. He was then seen in the office by Laurie Yanes on 11/20/2022 at which point meto prolol and amiodarone were discontinued. Given that he uses pill packs, it is unclear if/when these changes were made on his part at home. Amiodarone and metoprolol were discontinued due to bradycardia with heart rates in the 40s and 50s. He was noted to have atrial flutter with heart rates in the 40s during ER visit. Review of systems: As above. Review of systems otherwise negative/unremarkable. Family history: Mother and father had pacemaker. No known premature CAD. Social history: Smokes 5 ounces of tobacco with a pipe for 1.5 months. Denies alcohol or drug abuse. He lives alone. Has been 3 times and is /. 4 daughters, all of which are nurses. He was unaccompanied in his hospital room. Allergies Allergy/AdvReac Type Severity Reaction Status Date / Time ciprofloxacin Allergy Intermediate Rash Verified 11/30/22 14:51 warfarin Allergy Intermediate hives, rash Verified 11/30/22 14:51 niacin AdvReac Severe LEG Verified 11/30/22 14:51 [From Niaspan WEAKNESS Extended-Release] Gkewnhs-WWD-XtN Reductase AdvReac Severe muscle Verified 11/30/22 14:51 Inhibitor weakness,pain, [Imkelij-Vke-Hrk Reductase cramps Inhibitor] umeclidinium AdvReac Unknown "NOT Verified 11/30/22 14:51 [From Anoro Ellipta] ALLERGIC,DOES NOTHING FOR ME" vilanterol AdvReac Unknown "NOT Verified 11/30/22 14:51 [From Anoro Ellipta] ALLERGIC, DOES NOTHING FOR ME" Home Medications Medication Instructions Recorded Confirmed Type finasteride 5 mg tablet 5 mg PO QAM 06/28/20 11/30/22 History polyethylene glycol 3350 17 gram 17 g PO BID PRN Constipation 04/03/21 11/30/22 History oral powder packet (Miralax) nitroglycerin 0.4 mg sublingual 0.4 mg sublingual Q5M PRN chest 09/03/22 Rx tablet pain #25 tabs amiodarone 200 mg tablet 200 mg PO BID #60 tabs 10/01/22 11/30/22 Rx aspirin 81 mg tablet,delayed 81 mg PO QPM 11/19/22 11/30/22 History release cholecalciferol (vitamin D3) 50 50 mcg PO QAM 11/19/22 11/30/22 History mcg (2,000 unit) capsule metoprolol succinate 25 mg 25 mg PO QPM 11/19/22 11/30/22 History tablet,extended release 24 hr ondansetron 4 mg disintegrating 4 mg PO Q8H PRN nausea and 11/19/22 11/30/22 Rx tablet vomiting #30 tabs potassium chloride 10 mEq 20 meq PO QAM 11/19/22 11/30/22 History tablet,extended release torsemide 10 mg tablet 10 mg PO QAM 11/19/22 11/30/22 History apixaban 2.5 mg tablet (Eliquis) 2.5 mg PO BID #60 tabs 11/20/22 11/30/22 Rx lisinopril 2.5 mg tablet 2.5 mg PO QAM #90 tabs 11/27/22 11/30/22 Rx furosemide 20 mg tablet 20 mg PO DAILY 11/30/22 11/30/22 History ipratropium 0.5 mg-albuterol 3 mg 3 ml inhalation DIRECTED 11/30/22 11/30/22 History (2.5 mg base)/3 mL nebulization soln prednisone 20 mg tablet 40 mg PO DAILY 11/30/22 11/30/22 History Patient History Medical History (Updated 12/01/22 @ 18:10 by Devon Jimenez MD) Acute lower GI bleeding Anemia Anorectal fistula Arthritis Asthma Atrial fibrillation Carotid artery stenosis >70% NEHAL, <50% LICA Chronic kidney disease, stage 3 (moderate) COPD (chronic obstructive pulmonary disease) Coronary artery disease Remote h/o stent to RCA. Stent patent on 2005 cath per cardio. Degenerative arthritis of right knee Diabetes mellitus, type 2 Diastolic congestive heart failure Eczema Erectile dysfunction H/O difficult intubation Glidescope 2011 lap tracie History of anesthesia reaction SOMETIMES COMES OUT SWINGING History of FL (myocardial infarction) TOTAL OF 3 History of pulmonary embolism (02/2011) HX BILATERAL Hyperlipidemia Hypertension Ischemic cardiomyopathy Mitral regurgitation On anticoagulant therapy PAD (peripheral artery disease) (03/14/14) L common iliac angioplasty/stent, stenting of totally occluded R SFA, angioplasty of occluded RCF 2006. Angioplasty to R SFA in-stent stenosis 2013. PVCs (premature ventricular contractions) Restrictive lung disease Right lower lobe pulmonary nodule Noted on CT 04/03, 12mo f/u recommended. 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 S/P cataract surgery R/L S/P coronary artery stent placement (1995) RCA Status post angioplasty (2013) to R SFA in stent stenosis Status post surgery (12/15/17) placement of seton drain in transsphinteric fistula - 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 AND ALWAYS IS DRAINING Family History Mother Thyroid disease Family history of diabetes mellitus Father Coronary heart disease Emphysema of lung Family history of diabetes mellitus Uncle Family history of colon cancer Denies family history of Colon cancer Ovarian cancer Prostate cancer Myocardial infarction Breast cancer Lung cancer Colorectal cancer Social History Smoking Status: Current every day smoker Tobacco Type: Pipe Cigarettes Per Day: COUPLE TIMES A DAY TO SMOKE PIPE; Second Hand Exposure: No; Do You Dip or Chew Tobacco: No; Tobacco Cessation Education Requested by Patient: Yes Hx Alcohol Use: No Hx Substance Use: No Preferred Language: Hungarian Communication Ability: Effective Communication Ability Comment: PHONE INTERVIEW DONE WITH DAUGHTERSHADE PER PT REQUEST Visual Impairment: No Limitations Hearing Ability: Use of Hearing Aid Contract Analyst Required: No Beliefs That Will Affect Care: None marital status: / Current Living Situation: Alone Current Living Situation Comment: lives alone in apartment current occupational status: retired How many Children do You have: 2 Other Information That Helps Us Care for You: No Feels Safe at Home: Yes Safety Concerns: Feels Safe At This Time Childhood Exposure to Second-Hand Smoke: No Diet Comment: regular caffeine: Yes (2-3 cups coffee) during the past year weight has: increased > 10 lbs Dental Care, Regularly: Yes Physical Activity Frequency: 1-2 Times per Week Seatbelt Use: always Sunscreen Use: Yes Assistive Devices: Cane and Walker Assistive Devices Comment: hearing aids not with patient at this time Physical Exam Physical Exam: Gen.: No acute distress. Alert. HEENT: Anicteric sclera. Neck: Elevated JVD. No bruits. Normal carotid upstrokes bilaterally. Cardiac: No ventricular heave. Regular in the 50s. Normal S1-S2. 2/6 holosy stolic murmur best heard at the apex. No rubs or gallops. Pulmonary: Bilateral expiratory wheezing. Abdomen: Soft, nontender, nondistended, with normoactive bowel sounds. No bruits noted. Extremities: 2+ radial pulses bilaterally. 2-3+ bilateral lower extremity edema. No cyanosis. Results & Data Vital Signs (Past 12 Hours) Vital Signs Temp Pulse Pulse Resp BP Pulse Ox Pulse Ox 12/01/22 15:39 36.7 C 65 18 134/67 97 12/01/22 14:56 75 12/01/22 14:20 96 12/01/22 11:55 36.7 C 75 18 144/70 H 95 12/01/22 08:37 36.8 C 65 18 137/64 94 12/01/22 08:09 66 12/01/22 08:09 O2 Del Method O2 Flow Rate 12/01/22 15:39 Room Air 12/01/22 14:56 12/01/22 14:20 12/01/22 11:55 Room Air 12/01/22 08:37 Nasal Cannula 2.0 12/01/22 08:09 12/01/22 08:09 Room Air Intake & Output 11/29/22 11/30/22 12/01/22 12/02/22 06:59 06:59 06:59 06:59 Intake Total 200 / 200 420 / 420 Output Total 2610 / 2610 300 / 300 Balance -2410 / -2410 120 / 120 Weight 223 lb 8.78 oz 223 lb 8.78 oz Laboratory Results Laboratory Results - last 24 hr 11/30/22 11/30/22 12/01/22 17:51 20:14 04:31 WBC 9.37 RBC 4.42 L Hgb 14.4 Hct 42.4 MCV 95.9 MCH 32.6 MCHC 34.0 RDW Std Deviation 52.6 H RDW Coeff of Anton 14.9 H Plt Count 210 MPV 10.5 PT INR Sodium Potassium Chloride Carbon Dioxide Anion Gap BUN Creatinine Est Cr Clr Drug Dosing Est GFR ( Amer) Est GFR (Non-Af Amer) BUN/Creatinine Ratio Glucose POC Glucose 167 H Estimat Average Glucose Hemoglobin A1c Calcium Magnesium Total Bilirubin AST ALT Alkaline Phosphatase Troponin I High Sens 184.0 H* Total Protein Albumin Globulin Albumin/Globulin Ratio Triglycerides Cholesterol LDL Cholesterol, Calc VLDL Cholesterol, Calc HDL Cholesterol Cholesterol/HDL Ratio 25-OH Vitamin D Total TSH Free T3 12/01/22 12/01/22 12/01/22 04:31 04:31 04:31 WBC RBC Hgb Hct MCV MCH MCHC RDW Std Deviation RDW Coeff of Anton Plt Count MPV PT 12.1 H INR 1.1 Sodium 141 Potassium 4.2 Chloride 100 Carbon Dioxide 33 H Anion Gap 8 BUN 67 H Creatinine 2.35 H Est Cr Clr Drug Dosing 28.7 Est GFR ( Amer) 28.6 Est GFR (Non-Af Amer) 24.7 BUN/Creatinine Ratio 28.5 H Glucose 113 H POC Glucose Estimat Average Glucose 126 Hemoglobin A1c 6.0 H Calcium 8.2 L Magnesium 2.1 Total Bilirubin 2.9 H AST 15 ALT 29 Alkaline Phosphatase 55 Troponin I High Sens 157.9 H* Total Protein 6.4 Albumin 3.4 Globulin 3.0 Albumin/Globulin Ratio 1.1 Triglycerides 71 Cholesterol 156 LDL Cholesterol, Calc 99 VLDL Cholesterol, Calc 14 HDL Cholesterol 43 Cholesterol/HDL Ratio 3.6 25-OH Vitamin D Total TSH Free T3 12/01/22 12/01/22 12/01/22 04:31 04:31 07:29 WBC RBC Hgb Hct MCV MCH MCHC RDW Std Deviation RDW Coeff of Anton Plt Count MPV PT INR Sodium Potassium Chloride Carbon Dioxide Anion Gap BUN Creatinine Est Cr Clr Drug Dosing Est GFR ( Amer) Est GFR (Non-Af Amer) BUN/Creatinine Ratio Glucose POC Glucose 100 H Estimat Average Glucose Hemoglobin A1c Calcium Magnesium Total Bilirubin AST ALT Alkaline Phosphatase Troponin I High Sens Total Protein Albumin Globulin Albumin/Globulin Ratio Triglycerides Cholesterol LDL Cholesterol, Calc VLDL Cholesterol, Calc HDL Cholesterol Cholesterol/HDL Ratio 25-OH Vitamin D Total 52.3 TSH 1.729 Free T3 2.16 L 12/01/22 11:33 WBC RBC Hgb Hct MCV MCH MCHC RDW Std Deviation RDW Coeff of Anton Plt Count MPV PT INR Sodium Potassium Chloride Carbon Dioxide Anion Gap BUN Creatinine Est Cr Clr Drug Dosing Est GFR ( Amer) Est GFR (Non-Af Amer) BUN/Creatinine Ratio Glucose POC Glucose 103 H Estimat Average Glucose Hemoglobin A1c Calcium Magnesium Total Bilirubin AST ALT Alkaline Phosphatase Troponin I High Sens Total Protein Albumin Globulin Albumin/Globulin Ratio Triglycerides Cholesterol LDL Cholesterol, Calc VLDL Cholesterol, Calc HDL Cholesterol Cholesterol/HDL Ratio 25-OH Vitamin D Total TSH Free T3 Diagnostic Findings Telemetry personally reviewed: Atrial flutter. Normal heart rate and at times bradycardic. Echo reviewed 12/01/2022: EF 30 to 35%. Severe hypokinesis to akinesis of the inferolateral wall. Akinesis of the basal inferior wall. Mild global hypokinesis otherwise. Severe LVH. Mildly reduced RV systolic function. Mild biatrial dilation. Sclerotic aortic valve. Mild AI. Moderate to severe eccentric MR. Normal RVSP. Compared to 04/02/2018 echo, MR is now moderate to severe. [id number]: ECG personally reviewed 11/30/2022: Atrial flutter 74 bpm. RBBB. LAFB. Inferior infarct. History and physical report reviewed. Outpatient note from 11/20/2022 reviewed. Labs notable for mildly elevated high-sensitivity troponin, abnormal but stable renal function, elevated BNP, normal TSH. Chest x-ray 11/30/2022: Pulmonary vascular congestion per radiology. Emphysema. Calcified pleural plaques redemonstrated. Medications Administered Current Inpatient Medications Acetaminophen (Acetaminophen 325 Mg Tab) 650 mg PO Q4H PRN PRN Reason: Pain or Fever Stop: 12/30/22 16:39 Albuterol (Albut/Ipratrop 3mg/0.5mg Neb 3 Ml Vial) 3 ml NEB BIDR [facility]; Protocol Stop: 12/31/22 18:59 Apixaban (Apixaban 2.5 Mg Tab) 2.5 mg PO BID [facility] Stop: 12/30/22 20:59 Last Admin: 12/01/22 08:55 Dose: 2.5 mg Aspirin (Aspirin 81 Mg Ectab) 81 mg PO QPM [facility] Stop: 12/30/22 20:59 Last Admin: 11/30/22 21:02 Dose: 81 mg Finasteride (Finasteride 5 Mg Tab) 5 mg PO QAM [facility] Stop: 12/31/22 08:59 Last Admin: 12/01/22 08:55 Dose: 5 mg Fluticasone/Vilanterol (Fluticasone/Vilanterol 200/25mcg 14 Puffs/Inhaler) 1 puffs INH DAILY [facility] Stop: 12/31/22 08:59 Last Admin: 12/01/22 17:21 Dose: Not Given Furosemide (Furosemide 40 Mg/4 Ml Vial) 40 mg IV BID17 [facility] Stop: 12/30/22 18:44 Last Admin: 12/01/22 08:56 Dose: 40 mg Guaifenesin (Guaifenesin 600 Mg Tabcr) 1,200 mg PO Q12 [facility] Stop: 12/04/22 20:59 Metoprolol Succinate (Metoprolol Succ 25mg Ext Rel Tab) 25 mg PO QPM [facility] Stop: 12/31/22 20:59 Nitroglycerin (Nitroglycerin Sl 0.4 Mg/Tab Tab) 0.4 mg SL Q5M PRN PRN Reason: chest pain Stop: 12/30/22 16:39 Ondansetron HCl (Ondansetron Inj 2 Mg/Ml 2 Ml Vial) 4 mg IV Q6H PRN PRN Reason: Nausea Stop: 12/30/22 16:39 Polyethylene Glycol (Polyethylene (Miralax) 17 Gm Pack) 17 gm PO BID PRN PRN Reason: Constipation Stop: 12/30/22 16:39 Potassium Chloride (Potassium Chloride Crtab 20 Meq Tabcr) 20 meq PO QAM [facility] Stop: 12/31/22 08:59 Last Admin: 12/01/22 08:55 Dose: 20 meq Sodium Chloride (Sodium Chlor 7% 4 Ml Neb) 4 ml NEB BIDR [facility] Stop: 12/31/22 18:59 Vitamin D (Cholecalciferol 1,000 Units 25 Mcg Tab) 2,000 units PO QAM [facility] Stop: 12/31/22 08:59 Last Admin: 12/01/22 08:55 Dose: 2,000 units PG Care Time/CCT Total # of Minutes Spent Total Time Spent with Patient: Total time spent is greater than 50% in coordination of care (as documented) at patient's floor/unit and/or counseling patient: Coding Level of Care Code 40077 INT INP/OBS CARE 375MIN Diagnoses Acute on chronic HFrEF (heart failure with reduced ejection fraction) I50.23 Atrial flutter I48.92 Coronary artery disease I25.10 Coronary Disease-Associated Artery/Lesion type: [place] artery [place] vs. transplanted heart: [place] heart Associated angina: without angina Ischemic cardiomyopathy I25.5 Mitral regurgitation I34.0 Elevated troponin R77.8 Hypertension I10 Hypertension type: essential hypertension Hyperlipidemia E78.5 Hyperlipidemia type: unspecified (3) Coronary artery disease Coronary Disease-Associated Artery/Lesion type: [place] artery [place] vs. transplanted heart: [place] heart Associated angina: without angina Qualified Code(s): I25.10 - Atherosclerotic heart disease of [place] coronary artery without angina pectoris (7) Hypertension Hypertension type: essential hypertension Qualified Code(s): I10 - Essential (primary) hypertension (8) Hyperlipidemia Hyperlipidemia type: unspecified Qualified Code(s): E78.5 - Hyperlipidemia, unspecified
[2022-12-01] MEDS ORDERED: SODIUM CHLOR 7% 4 ML NEB NEB SCH (19:00)
[2022-12-01] MEDS ORDERED: ALBUT/IPRATROP 3MG/0.5MG NEB 3 ML VIAL NEB SCH (19:00)
[2022-12-01] MEDS ORDERED: FLUTICASONE/SALMETEROL 250/50 (ADVAIR) 14 PUFF/1 INHALER INH SCH (21:00)
[2022-12-01] MEDS: guaiFENesin 600 MG TABCR PO SCH (21:29)
[2022-12-01] MEDS: ASPIRIN 81 MG ECTAB PO SCH (21:30)
[2022-12-01] MEDS: METOPROLOL SUCC 25MG EXT REL TAB PO SCH (21:30)
[2022-12-02] MEDS ORDERED: ALBUT/IPRATROP 3MG/0.5MG NEB 3 ML VIAL NEB PRN (00:55)
--- NOTE | 2022-12-02 05:08 | Electrocardiogram Report ---
Test Reason : Blood Pressure : / mmHG Vent. Rate : 074 BPM Atrial Rate : 000 BPM P-R Int : 000 ms QRS Dur : 166 ms QT Int : 450 ms P-R-T Axes : 000 -50 103 degrees QTc Int : 499 ms Atrial flutter Right bundle branch block Left anterior fascicular block Bifascicular block Possible Inferior infarct (cited on or before 23-FEB-2020) Possible Anterolateral infarct (cited on or before 23-FEB-2020) Abnormal ECG When compared with ECG of 20-NOV-2022 12:59, Questionable change in initial forces of Anterior leads T wave inversion less evident in Lateral leads Confirmed by Devon Jimenez ([id number]) on 12/02/2022 5:08:02 AM Referred By: Confirmed By:Devon Jimenez
[2022-12-02 06:33] LABS: Basophils # (auto) 0.01 K/uL (0-0.2); Basophils % (auto) 0.1 %; Eosinophils # (auto) 0.29 K/uL (0-0.50); Eosinophils % (auto) 2.9 %; Hematocrit (blood only) 43.3 % (42.0-52.0); Hemoglobin 14.8 g/dl (14.0-18.0); Immature Granulocytes # (auto) 0.05 K/uL (0.01-0.20); Immature Granulocytes % (auto) 0.5 %; Lymphocytes # (auto) 1.44 K/uL (1.2-3.4); Lymphocytes % (auto) 14.5 %; Mean Corpuscular Hemoglobin 33.1 pg (25.0-34.0); Mean Corpuscular Hgb Conc 34.2 g/dL (32.0-36.0); Mean Corpuscular Volume 96.9 fL (80.0-100.0); Mean Platelet Volume 10.5 fL (9.4-12.4); Monocytes # (auto) 1.08 K/uL (0.11-0.59); Monocytes % (auto) 10.9 %; Neutrophils # (auto) 7.04 K/uL (1.40-6.50); Neutrophils % (auto) 71.1 %; Platelet Count 220 K/uL (130-400); RDW Coefficient of Variation 14.9 % (11.5-14.5); RDW Standard Deviation 52.9 fL (36.4-46.3); Red Blood Count 4.47 M/uL (4.70-6.10); White Blood Count 9.91 K/ul (4.8-10.8)
[2022-12-02 06:50] LABS: BUN Creatinine Ratio 31.6 (10-20); Calcium 8.3 mg/dl (8.6-10.3); Creatinine Clr Calc Pharmacy 29.5 ml/min; Est GFR (African American) 30.1 ml/min; Magnesium 2.1 mg/dl (1.7-2.4)
[2022-12-02] MEDS: guaiFENesin 600 MG TABCR PO SCH ×2 (08:04→20:01)
[2022-12-02] MEDS: POTASSIUM CHLORIDE CRTAB 20 MEQ TABCR PO SCH (08:05)
[2022-12-02] MEDS: APIXABAN 2.5 MG TAB PO SCH ×2 (08:05→20:00)
[2022-12-02] MEDS: CHOLECALCIFEROL 1,000 UNITS 25 MCG TAB PO SCH (08:06)
[2022-12-02] MEDS: FINASTERIDE 5 MG TAB PO SCH (08:06)
[2022-12-02] MEDS: FLUTICASONE/VILANTEROL 200/25MCG 14 PUFFS/INHALER INH SCH (08:06)
[2022-12-02] MEDS: FUROSEMIDE 40 MG/4 ML VIAL IV SCH ×2 (08:09→16:07)
--- NOTE | 2022-12-02 08:33 | Hospitalist Progress Note ---
Date of Service December 02, 2022 Assessment & Plan (1) Acute on chronic HFrEF (heart failure with reduced ejection fraction): Plan: Hx CHF with some suspected confusion with medications in the recent past, Cardiology and CHF Program asked to see patient to clarify home regimen. With complaints of SOB, weight gain on admission. CXR with pulmonary vascular congestion. Echo 12/01/22 with moderate to severely reduced EF 30-35%, decreased compared to 40-45% on Echo 09/2021. Troponin trend mild elevation without evidence of ACS on EKG. telemetry without significant arrhythmia, has been in atrial fibrillation. Dry weight reported at 218lb, on admission weight was 245->220 with diuresis. Net negative ~1650mL today, continue Lasix 40mg IV BID, cardiology following and appreciate recommendations. Daily BMP for electrolyte and renal function monitoring during diuresis. (2) COPD (chronic obstructive pulmonary disease): Plan: History of, not on supplemental oxygen at home. Continues to smoke a pipe at t imes, encouraged cessation. On room air and comfortable at this time. Duonebs x1 day scheduled for ongoing wheezing, as needed thereafter. Saline nebs and Mucinex for sputum. Has a smoking history, no CT with contrast on chart suspected due to CKD with low GFR. Suspect sputum is due to frequent COPD- related cough in patient on Eliquis, improved today. Was previously on Advair, resumed this admission and recommended continuation on discharge. Recommend follow up with [facility] for formal PFTs and further titration of inhalers if needed, as well as possible ongoing work up of blood-tinged sputum. May need two-step on discharge to ensure no need for home O2 with ambulation. (3) Paroxysmal atrial flutter: Plan: History of, not in RVR this admission. Continue Eliquis and metoprolol succinate, further medication changes if indicated per cardiology. Electrophysiology could be considered for cardioversion however given patient's slow ventricular response is tricky situation. (4) Hypertension: Plan: History of on chart however not on any formal medication for hypertension. BP 130s/60s, at appropriate goal for age, no intervention at this time defer to PCP. (5) Hyperlipidemia: Plan: History of, intolerant of statins. Follow up with Cardiology outpatient. (6) History of pulmonary embolism: Plan: Continue Eliquis. (7) Coronary artery disease: Plan: Continue aspirin, lisinopril, beta farida. Would recommend cholesterol medication for risk reduction however patient is intolerant of statins. (8) Diabetes mellitus, type 2: Plan: A1c 6.0% with diet control. Discontinued Accuchecks per patient request, had been within range prior to cessation. DM2 diet. Jardiance could be considered however not recommended in patients with GFR <20, which patient is very close to at baseline. (9) Chronic kidney disease, stage 3 (moderate): Plan: With baseline GFR in mid 20s, and creatinine baseline widely variable in 1.7-2.2 range. Creatinine 2.25 today, continue to monitor especially in setting of IV diuresis. Plan Ultimately will need CM and patient's pharmacy assistance with arranging pill packs (once medications ironed out) and getting up to date medical list for discharge to minimize medication confusion. Ongoing diuresis and management by primary and cardiology services. We will also need follow-up with CHF clinic on discharge which patient is amenable to. Admission and Anticipated Discharge Date Admission Date: November 30, 2022 Subjective Patient without any acute events overnight. He does feel much better today even compared to yesterday with regard to his breathing, less mucus. No other complaints including no chest pain, abdominal pain, nausea. Review of Systems Review of Systems: All systems reviewed & are unremarkable except as noted in Subjective Physical Exam Constitutional: WD/WN, vitals as above Respiratory: good air movement, no wheezing appreciated Cardiovascular: HR irregularly irregular, no murmurs, bilateral 2+ lower extremity edema Gastrointestinal (Abdomen): normal bowel sounds, soft, nontender, no hepatospl enomegaly Skin: Chronic venous stasis changes to bilateral legs/feet with cool toes Psychiatric: A+Ox3, euthymic affect Results & Data Results & Data Vital Signs (Past 12 Hours) Vital Signs Temp Pulse Pulse Resp BP Pulse Ox O2 Del Method 12/02/22 07:00 36.4 C L 52 L 16 101/51 L 98 Room Air 12/02/22 03:15 36.3 C L 65 18 124/56 L 96 Room Air 12/01/22 22:01 75 12/01/22 23:44 36.4 C L 74 20 125/73 98 Room Air 12/01/22 21:30 Room Air PG Care Time/CCT Total # of Minutes Spent Total Time Spent with Patient: Total time spent is greater than 50% in coordination of care (as documented) at patient's floor/unit and/or counseling patient: Coding Level of Care Code 21407 SUB INP/OBS CARE 350MIN Diagnoses Acute on chronic HFrEF (heart failure with reduced ejection fraction) I50.23 COPD (chronic obstructive pulmonary disease) J44.9 COPD type: unspecified COPD Paroxysmal atrial flutter I48.92 Hypertension I10 Hypertension type: essential hypertension Hyperlipidemia E78.5 Hyperlipidemia type: unspecified History of pulmonary embolism Z86.711 Coronary artery disease I25.10 Associated angina: without angina Coronary Disease-Associated Artery/Lesion type: [place] artery [place] vs. transplanted heart: [place] heart Diabetes mellitus, type 2 E11.9 Chronic kidney disease, stage 3 (moderate) N18.3 (2) COPD (chronic obstructive pulmonary disease) COPD type: unspecified COPD Qualified Code(s): J44.9 - Chronic obstructive pulmonary disease, unspecified (4) Hypertension Hypertension type: essential hypertension Qualified Code(s): I10 - Essential (primary) hypertension (5) Hyperlipidemia Hyperlipidemia type: unspecified Qualified Code(s): E78.5 - Hyperlipidemia, unspecified (7) Coronary artery disease Associated angina: without angina Coronary Disease-Associated Artery/Lesion type: [place] artery [place] vs. transplanted heart: [place] heart Qualified Code(s): I25.10 - Atherosclerotic heart disease of [place] coronary artery without angina pectoris
--- NOTE | 2022-12-02 12:24 | Cardiology Progress Note ---
Date of Service December 02, 2022 Assessment & Plan (1) Acute on chronic HFrEF (heart failure with reduced ejection fraction): (2) Atrial flutter: (3) Coronary artery disease: (4) Ischemic cardiomyopathy: (5) Mitral regurgitation: (6) Elevated troponin: (7) Hypertension: (8) Hyperlipidemia: Plan ASSESSMENT/PLAN: 1. Acute on chronic heart failure with reduced EF: Remains hypervolemic, but improved. Continue diuresis with a goal of 1 to 2 L negative net fluid balance per day. Titration of beta-farida will be limited due to bradycardia. Recommend Entresto in place of lisinopril after 36 hours of no lisinopril, if renal function can tolerate. Would first diuresis. No spironolactone given current renal function. Consider SGLT2 inhibitor in the future if renal function allows, but medical therapy may be somewhat limited due to his other comorbidities. Low-sodium diet, less than 2000 mg daily. Daily weights and strict I's and O's while hospitalized. He met with Kierra Santos on 12/01/22 and agreeable to follow in the heart failure program.. 2. Ischemic cardiomyopathy: Optimizing medical therapy will be challenging given renal function and bradycardia. He has been on metoprolol succinate and low-dose SOLA inhibitor as an outpatient. Consideration for ICD for primary prevention, especially if unable to titrate medical therapy. 3. CAD s/p PCI: He reports multiple PCI in the past but no cardiac catheterization for 10 or more years. No angina. Elevated troponin likely due to heart failure exacerbation in the setting of CKD. Wall motion abnormalities appear to be chronic when comparing previous echoes. LV systolic dysfunction also appears chronic. No urgent indication for cardiac catheterization at this time. Recommend optimizing volume status and reassess. Intolerant to statin therapy per records. Beta-farida as tolerated as above. Continue aspirin 81 mg daily indefinitely. 4. Dyslipidemia: Intolerant to statin therapy per records. Consider PCSK9 inhibitor, which can be managed as an outpatient. 5. Hypertension: Blood pressure has mostly been normotensive today. Diuresing as above. 6. Atrial flutter: Became more significantly bradycardic while on amiodarone after less than 2 months of therapy as arranged by Dr. Reyes. Titration of beta-farida for heart failure/cardiomyopathy will be challenging due to bradycardia. Atrial flutter could be worsening CHF. Consideration for cardioversion at some point, which could be challenging given bradycardia as we do not know what his sinus rate will be. If undergoes ICD, may be able to more aggressively manage his arrhythmia with rhythm control strategy. We will consid er discussing with electrophysiology. Continue anticoagulation for stroke risk reduction. Atrial flutter seems to be persistent. 7. Elevated troponin: Did not present with acute coronary syndrome. Likely due to known underlying CAD in the setting of heart failure exacerbation and CKD. 8. Mitral regurgitation: Could be due to hypervolemic state but could also be contributing to heart failure. Diuresis as above. Can consider reevaluating in the near future and if still significant, consider corrective measures, if option and if he is interested. This may be challenging in the setting of reduced LV systolic function. 9. Disposition: Cardiology will continue to follow. Will continue to follow along until Dr. Reyes returns. Follow-up with Dr. Reyes on discharge. Heart failure program on discharge. Patient care communicated with Dr. Hsu, primary hospitalist. Highly complex medical issues. Admission and Anticipated Discharge Date Admission Date: November 30, 2022 Subjective He is feeling better today. Breathing has improved but not back to baseline. Edema has improved but not back to baseline. He denies chest pain, palpitations, syncope, near syncope, or bleeding. Urine output is being collected but there has been some incontinent voids as well. Despite this, he remains with a negative net fluid balance. Physical Exam Physical Exam: Gen.: No acute distress. Alert. HEENT: Anicteric sclera. Neck: Mild JVD. Cardiac: No ventricular heave. Regular in the 50s. Normal S1-S2. 2/6 holosystolic murmur best heard at the apex. No rubs or gallops. Pulmonary: Scant bilateral expiratory wheezing (improved). Abdomen: Soft, nontender, nondistended, with normoactive bowel sounds. No bruits noted. Extremities: 2+ radial pulses bilaterally. 2+ bilateral lower extremity edema. No cyanosis. Results & Data Vital Signs (Past 12 Hours) Vital Signs Temp Pulse Resp BP Pulse Ox O2 Del Method 12/02/22 11:14 36.4 C L 55 L 20 145/72 H 98 Room Air 12/02/22 08:00 Room Air 12/02/22 07:00 36.4 C L 52 L 16 101/51 L 98 Room Air 12/02/22 03:15 36.3 C L 65 18 124/56 L 96 Room Air Intake & Output 11/30/22 12/01/22 12/02/22 12/03/22 06:59 06:59 06:59 06:59 Intake Total 200 / 200 420 / 420 Output Total 2610 / 2610 1800 / 1800 250 / 250 Balance -2410 / -2410 -1380 / -1380 -250 / -250 Weight 223 lb 8.78 oz 220 lb 10.923 oz Laboratory Results Laboratory Results - last 24 hr 12/02/22 12/02/22 05:52 05:52 WBC 9.91 RBC 4.47 L Hgb 14.8 Hct 43.3 MCV 96.9 MCH 33.1 MCHC 34.2 RDW Std Deviation 52.9 H RDW Coeff of Anton 14.9 H Plt Count 220 MPV 10.5 Immature Gran % (Auto) 0.5 Neut % (Auto) 71.1 Lymph % (Auto) 14.5 [place] % (Auto) 10.9 Eos % (Auto) 2.9 Baso % (Auto) 0.1 Neut # (Auto) 7.04 H Lymph # (Auto) 1.44 [place] # (Auto) 1.08 H Eos # (Auto) 0.29 Baso # (Auto) 0.01 Immature Gran # (Auto) 0.05 Sodium 140 Potassium 4.0 Chloride 98 Carbon Dioxide 32 Anion Gap 10 BUN 71 H Creatinine 2.25 H Est Cr Clr Drug Dosing 29.5 Est GFR ( Amer) 30.1 Est GFR (Non-Af Amer) 26.0 BUN/Creatinine Ratio 31.6 H Glucose 93 Calcium 8.3 L Magnesium 2.1 Diagnostic Findings Telemetry personally reviewed: Atrial flutter with heart rates typically in the 50s to 60s. ECG personally reviewed 12/02/2022: Atrial flutter 55 bpm. RBBB. LAFB. LVH. Inferior infarct. Labs reviewed and notable for stable renal function, normal potassium, normal blood counts. Medications Administered Current Inpatient Medications Acetaminophen (Acetaminophen 325 Mg Tab) 650 mg PO Q4H PRN PRN Reason: Pain or Fever Stop: 12/30/22 16:39 Albuterol (Albut/Ipratrop 3mg/0.5mg Neb 3 Ml Vial) 3 ml NEB BIDR PRN; Protocol PRN Reason: wheeze Stop: 12/31/22 18:59 Apixaban (Apixaban 2.5 Mg Tab) 2.5 mg PO BID MARIO Stop: 12/30/22 20:59 Last Admin: 12/02/22 08:05 Dose: 2.5 mg Aspirin (Aspirin 81 Mg Ectab) 81 mg PO QPM MARIO Stop: 12/30/22 20:59 Last Admin: 12/01/22 21:30 Dose: 81 mg Finasteride (Finasteride 5 Mg Tab) 5 mg PO QAM [facility] Stop: 12/31/22 08:59 Last Admin: 12/02/22 08:06 Dose: 5 mg Fluticasone/Vilanterol (Fluticasone/Vilanterol 200/25mcg 14 Puffs/Inhaler) 1 puffs INH DAILY MARIO Stop: 12/31/22 08:59 Last Admin: 12/02/22 08:06 Dose: Not Given Furosemide (Furosemide 40 Mg/4 Ml Vial) 40 mg IV BID17 [facility] Stop: 12/30/22 18:44 Last Admin: 12/02/22 08:09 Dose: 40 mg Guaifenesin (Guaifenesin 600 Mg Tabcr) 1,200 mg PO Q12 MARIO Stop: 12/04/22 20:59 Last Admin: 12/02/22 08:04 Dose: 1,200 mg Metoprolol Succinate (Metoprolol Succ 25mg Ext Rel Tab) 25 mg PO QPM MARIO Stop: 12/31/22 20:59 Last Admin: 12/01/22 21:30 Dose: 25 mg Nitroglycerin (Nitroglycerin Sl 0.4 Mg/Tab Tab) 0.4 mg SL Q5M PRN PRN Reason: chest pain Stop: 12/30/22 16:39 Ondansetron HCl (Ondansetron Inj 2 Mg/Ml 2 Ml Vial) 4 mg IV Q6H PRN PRN Reason: Nausea Stop: 12/30/22 16:39 Polyethylene Glycol (Polyethylene (Miralax) 17 Gm Pack) 17 gm PO BID PRN PRN Reason: Constipation Stop: 12/30/22 16:39 Potassium Chloride (Potassium Chloride Crtab 20 Meq Tabcr) 20 meq PO QAM MARIO Stop: 12/31/22 08:59 Last Admin: 12/02/22 08:05 Dose: 20 meq Vitamin D (Cholecalciferol 1,000 Units 25 Mcg Tab) 2,000 units PO QAM MARIO Stop: 12/31/22 08:59 Last Admin: 12/02/22 08:06 Dose: 2,000 units PG Care Time/CCT Total # of Minutes Spent Total Time Spent with Patient: Total time spent is greater than 50% in coordination of care (as documented) at patient's floor/unit and/or counseling patient: Coding Level of Care Code 29796 SUB INP/OBS CARE 3/50MIN Diagnoses Acute on chronic HFrEF (heart failure with reduced ejection fraction) I50.23 Atrial flutter I48.92 Coronary artery disease I25.10 Coronary Disease-Associated Artery/Lesion type: [place] artery [place] vs. transplanted heart: [place] heart Associated angina: without angina Ischemic cardiomyopathy I25.5 Mitral regurgitation I34.0 Elevated troponin R77.8 Hypertension I10 Hypertension type: essential hypertension Hyperlipidemia E78.5 Hyperlipidemia type: unspecified (3) Coronary artery disease Coronary Disease-Associated Artery/Lesion type: [place] artery [place] vs. transplanted heart: [place] heart Associated angina: without angina Qualified Code(s): I25.10 - Atherosclerotic heart disease of [place] coronary artery without angina pectoris (7) Hypertension Hypertension type: essential hypertension Qualified Code(s): I10 - Essential (primary) hypertension (8) Hyperlipidemia Hyperlipidemia type: unspecified Qualified Code(s): E78.5 - Hyperlipidemia, unspecified
[2022-12-02] MEDS: ASPIRIN 81 MG ECTAB PO SCH (20:00)
[2022-12-02] MEDS: METOPROLOL SUCC 25MG EXT REL TAB PO SCH (20:03)
--- NOTE | 2022-12-03 05:26 | Electrocardiogram Report ---
Test Reason : Blood Pressure : / mmHG Vent. Rate : 055 BPM Atrial Rate : 208 BPM P-R Int : 000 ms QRS Dur : 170 ms QT Int : 528 ms P-R-T Axes : 000 -49 127 degrees QTc Int : 505 ms Atrial flutter with slow ventricular response Right bundle branch block Left anterior fascicular block Bifascicular block Left ventricular hypertrophy with repolarization abnormality Inferior infarct , age undetermined Anterolateral infarct , age undetermined Abnormal ECG When compared with ECG of 30-NOV-2022 12:42, No significant change Confirmed by Devon Jimenez ([id number]) on 12/03/2022 5:25:48 AM Referred By: REFERRED SELF Confirmed By:Devon Jimenez
[2022-12-03] MEDS ORDERED: bisacodyL 5 MG TABEC PO PRN (06:33)
[2022-12-03 06:56] LABS: Calcium 8.2 mg/dl (8.6-10.3)
[2022-12-03 07:01] LABS: BUN Creatinine Ratio 29.3 (10-20); Creatinine Clr Calc Pharmacy 26.8 ml/min; Est GFR (Non-African American) 23.3 ml/min
--- NOTE | 2022-12-03 08:06 | Hospitalist Progress Note ---
Date of Service December 03, 2022 Assessment & Plan (1) Acute on chronic HFrEF (heart failure with reduced ejection fraction): Plan: Hx CHF with some suspected confusion with medications in the recent past, Cardiology and CHF Program asked to see patient to clarify home regimen. With complaints of SOB, weight gain on admission, improving. Admission CXR with pulmonary vascular congestion. Echo 12/01/22 with moderate to severely reduced EF 30-35%, and discussion with cardiology feel that this is about the same as last echocardiogram. Troponin trend mild elevation without evidence of ACS on EKG. telemetry without significant arrhythmia, has been in atrial fibrillation. Dry weight reported at 218lb, on admission weight was 245-> 217 with diuresis. Net negative ~1335mL today, given creatinine bump will discontinue IV diuresis in favor of Lasix 20 mg p.o. daily, with cardiology following and appreciate recommendations. Daily BMP for electrolyte and renal function monitoring during diuresis. (2) COPD (chronic obstructive pulmonary disease): Plan: History of, not on supplemental oxygen at home. Continues to smoke a pipe at times, encouraged cessation. On room air and comfortable at this time. Duonebs as needed for wheezing. Saline nebs and Mucinex for sputum. Has a smoking history, no CT with contrast on chart suspected due to CKD with low GFR. Suspect sputum is due to frequent COPD-related cough in patient on Eliquis. Was previously on Advair, resumed this admission and recommend continuation on discharge. Recommend follow up with [facility] for formal PFTs and further titration of inhalers if needed, as well as possible ongoing work up of blood- tinged sputum. May need two-step on discharge to ensure no need for home O2 with ambulation. (3) Paroxysmal atrial flutter: Plan: History of, not in RVR this admission. Continue Eliquis and metoprolol succinate, further medication changes if indicated per cardiology. Electrophysiology to confer with Dr. Reyes regarding best course, perhaps ablation while inpatient versus scheduling outpatient, case discussed today with Dr. Mary. It is possible that patient will need a ICD/pacemaker depending on rate, in the setting of decreased EF. (4) Hypertension: Plan: History of on chart however not on any formal medication for hypertension save for metoprolol. BP 130s/60s, at appropriate goal for age, no intervention at this time defer to PCP. (5) Hyperlipidemia: Plan: History of, intolerant of statins. Follow up with Cardiology outpatient. (6) History of pulmonary embolism: Plan: Continue Eliquis. (7) Coronary artery disease: Plan: Continue aspirin, lisinopril, beta farida. Would recommend cholesterol medication for risk reduction however patient is intolerant of statins. (8) Diabetes mellitus, type 2: Plan: A1c 6.0% with diet control. Discontinued Accuchecks per patient request, had been within range prior to cessation. DM2 diet. Jardiance could be considered however not recommended in patients with GFR <20, which patient is very close to at baseline. (9) Chronic kidney disease, stage 3 (moderate): Plan: With baseline GFR in mid 20s, and creatinine baseline widely variable in 1.7-2.2 range. Creatinine 2.46 today, suspect of had appropriate net loss for diuresis so we will discontinue with monitoring of renal function. Plan Ultimately will need CM and patient's pharmacy assistance with arranging pill packs (once medications ironed out) and getting up to date medical list for dis charge to minimize medication confusion. Ongoing diuresis and management by primary and cardiology services. We will also need follow-up with CHF clinic on discharge which patient is amenable to. Admission and Anticipated Discharge Date Admission Date: November 30, 2022 Subjective Patient without any acute events overnight. Vitals normal and saturating well on room air. Still with some phlegm but otherwise no complaints of chest pain or palpitations, lightheadedness. This morning did have episode of bradycardia in the high 30s, resolved relatively quickly without intervention, asymptomatic. Review of Systems Review of Systems: All systems reviewed & are unremarkable except as noted in Subjective Physical Exam Constitutional: WD/WN, vitals as above Respiratory: good air movement, no wheezing appreciated Cardiovascular: HR irregularly irregular, no murmurs, bilateral 2+ lower extremity edema Gastrointestinal (Abdomen): normal bowel sounds, soft, nontender, no hepatosplenomegaly Skin: Chronic venous stasis changes to bilateral legs/feet with cool toes Psychiatric: A+Ox3, euthymic affect Results & Data Results & Data Vital Signs (Past 12 Hours) Vital Signs Temp Pulse Pulse Resp BP Pulse Ox O2 Del Method 12/03/22 07:00 36.8 C 45 L 18 125/51 L 97 Room Air 12/02/22 22:00 68 12/03/22 03:24 36.8 C 59 L 18 128/61 94 Room Air 12/02/22 23:34 36.1 C L 69 18 155/79 H 94 Room Air PG Care Time/CCT Total # of Minutes Spent Total Time Spent with Patient: Total time spent is greater than 50% in coordination of care (as documented) at patient's floor/unit and/or counseling patient: Coding Level of Care Code 16891 SUB INP/OBS CARE 3/50MIN Diagnoses Acute on chronic HFrEF (heart failure with reduced ejection fraction) I50.23 COPD (chronic obstructive pulmonary disease) J44.9 COPD type: unspecified COPD Paroxysmal atrial flutter I48.92 Hypertension I10 Hypertension type: essential hypertension Hyperlipidemia E78.5 Hyperlipidemia type: unspecified History of pulmonary embolism Z86.711 Coronary artery disease I25.10 Associated angina: without angina Coronary Disease-Associated Artery/Lesion type: [place] artery [place] vs. transplanted heart: [place] heart Diabetes mellitus, type 2 E11.9 Chronic kidney disease, stage 3 (moderate) N18.3 (2) COPD (chronic obstructive pulmonary disease) COPD type: unspecified COPD Qualified Code(s): J44.9 - Chronic obstructive pulmonary disease, unspecified (4) Hypertension Hypertension type: essential hypertension Qualified Code(s): I10 - Essential (primary) hypertension (5) Hyperlipidemia Hyperlipidemia type: unspecified Qualified Code(s): E78.5 - Hyperlipidemia, unspecified (7) Coronary artery disease Associated angina: without angina Coronary Disease-Associated Artery/Lesion type: [place] artery [place] vs. transplanted heart: [place] heart Qualified Code(s): I25.10 - Atherosclerotic heart disease of [place] coronary artery without angina pectoris
[2022-12-03] MEDS: CHOLECALCIFEROL 1,000 UNITS 25 MCG TAB PO SCH (08:07)
[2022-12-03] MEDS: FINASTERIDE 5 MG TAB PO SCH (08:07)
[2022-12-03] MEDS: APIXABAN 2.5 MG TAB PO SCH ×2 (08:07→20:31)
[2022-12-03] MEDS: POTASSIUM CHLORIDE CRTAB 20 MEQ TABCR PO SCH (08:08)
[2022-12-03] MEDS: FLUTICASONE/VILANTEROL 200/25MCG 14 PUFFS/INHALER INH SCH (08:08)
[2022-12-03] MEDS: guaiFENesin 600 MG TABCR PO SCH ×2 (08:08→20:31)
[2022-12-03] MEDS: FUROSEMIDE 20 MG TAB PO SCH (08:52)
--- NOTE | 2022-12-03 16:43 | Cardiology Consultation ---
Date of Consultation December 03, 2022 Assessment & Plan (1) Ischemic cardiomyopathy: (2) Atrial flutter: (3) Bradycardia: Plan 1. Atrial flutter: He seems to have longstanding atrial flutter. At this appears to be a primary arrhythmia, I would favor catheter-based treatment and return to a sinus rhythm. This may improve overall cardiac efficiency and symptoms of heart failure. Think this could be achieved with catheter-based therapy. I did have a discussion with the patient today who seems willing to proceed. I think if he is clinically improved and ambulatory this could be arranged on outpatient basis. If the patient continues to feel poorly or will be in the hospital next week this potentially could be performed during his hospitalization. Continue apixaban currently 2. Bradycardia: He does have an element of low heart rates at times. He continues on metoprolol succinate. Amiodarone was discontinued. He does have some benefit from beta-blockade in the setting of his ischemic cardiomyopathy and coronary artery disease. I think we will see what his heart rates remain subsequent to ablation of the atrial flutter. It is very possible he will require some rate support in order to facilitate treatment of his ischemic cardiomyopathy. 3. Ischemic cardiomyopathy: He is likely on optimal medical therapy at this time. The remaining agents generally used for reduced LV function are relatively contraindicated in his case primarily due to his renal dysfunction. As such, without any notable improvement subsequent to return to sinus rhythm he would be in the category of patients who are considered for prophylactic ICD. Certainly if he has an indication for a pacemaker and ICD will be implanted. Given his reduced LV function he may require a biventricular device if we anticipate a high percentage of ventricular pacing. At this point we will plan on an ablation for atrial flutter, either inpatient or outpatient depending on his clinical course. Appropriate device therapy can be determined subsequently. History of Present Illness Reason for Consultation: Atrial flutter, bradycardia Requesting Physician: Barbara Attending Physician: Radha Hus DO History of Present Illness The patient is an 81-year-old gentleman with an extensive cardiac history to include coronary artery disease, mitral regurgitation, nonischemic cardiomyopathy with a current admission for decompensated heart failure. Leading up to his admission the patient had progressively worsening dyspnea, edema and weight gain. He has undergone aggressive diuresis with significant improvement in his edema and breathing. He continues to have an element of fatigue and mild dyspnea. He also has some foot swelling which has yet to resolve. He has a long history of atrial flutter. More recently he was started on some amiodarone and had been on beta-blockade. However, he was noted to be bradycardic in the outpatient setting and these medications were discontinued. He did not endorse symptoms today of significant dizziness or lightheadedness. He has been unaware of any palpitations. He states that he sleeps poorly overall but does not describe orthopnea. No recent history of syncope. Allergies Allergy/AdvReac Type Severity Reaction Status Date / Time ciprofloxacin Allergy Intermediate Rash Verified 11/30/22 14:51 warfarin Allergy Intermediate hives, rash Verified 11/30/22 14:51 niacin AdvReac Severe LEG Verified 11/30/22 14:51 [From Niaspan WEAKNESS Extended-Release] Bwskard-TWC-XhW Reductase AdvReac Severe muscle Verified 11/30/22 14:51 Inhibitor weakness,pain, [Kirzmob-Iys-Gil Reductase cramps Inhibitor] umeclidinium AdvReac Unknown "NOT Verified 11/30/22 14:51 [From Anoro Ellipta] ALLERGIC,DOES NOTHING FOR ME" vilanterol AdvReac Unknown "NOT Verified 11/30/22 14:51 [From Anoro Ellipta] ALLERGIC, DOES NOTHING FOR ME" Home Medications Medication Instructions Recorded Confirmed Type finasteride 5 mg tablet 5 mg PO QAM 06/28/20 11/30/22 History polyethylene glycol 3350 17 gram 17 g PO BID PRN Constipation 04/03/21 11/30/22 History oral powder packet (Miralax) nitroglycerin 0.4 mg sublingual 0.4 mg sublingual Q5M PRN chest 09/03/22 11/30/22 Rx tablet pain #25 tabs amiodarone 200 mg tablet 200 mg PO BID #60 tabs 10/01/22 11/30/22 Rx aspirin 81 mg tablet,delayed 81 mg PO QPM 11/19/22 11/30/22 History release cholecalciferol (vitamin D3) 50 50 mcg PO QAM 11/19/22 11/30/22 History mcg (2,000 unit) capsule metoprolol succinate 25 mg 25 mg PO QPM 11/19/22 11/30/22 History tablet,extended release 24 hr ondansetron 4 mg disintegrating 4 mg PO Q8H PRN nausea and 11/19/22 11/30/22 Rx tablet vomiting #30 tabs potassium chloride 10 mEq 20 meq PO QAM 11/19/22 11/30/22 History tablet,extended release torsemide 10 mg tablet 10 mg PO QAM 11/19/22 11/30/22 History apixaban 2.5 mg tablet (Eliquis) 2.5 mg PO BID #60 tabs 11/20/22 11/30/22 Rx furosemide 20 mg tablet 20 mg PO DAILY 11/30/22 11/30/22 History ipratropium 0.5 mg-albuterol 3 mg 3 ml inhalation DIRECTED 11/30/22 11/30/22 History (2.5 mg base)/3 mL nebulization soln prednisone 20 mg tablet 40 mg PO DAILY 11/30/22 11/30/22 History lisinopril 2.5 mg tablet 2.5 mg PO QAM #90 tabs 12/02/22 Rx Patient History Medical History (Updated 12/01/22 @ 18:10 by Devon Jimenez MD) Acute lower GI bleeding Anemia Anorectal fistula Arthritis Asthma Atrial fibrillation Carotid artery stenosis >70% NEHAL, <50% LICA Chronic kidney disease, stage 3 (moderate) COPD (chronic obstructive pulmonary disease) Coronary artery disease Remote h/o stent to RCA. Stent patent on 2005 cath per cardio. Degenerative arthritis of right knee Diabetes mellitus, type 2 Diastolic congestive heart failure Eczema Erectile dysfunction H/O difficult intubation Glidescope 2011 lap tracie History of anesthesia reaction SOMETIMES COMES OUT SWINGING History of AK (myocardial infarction) TOTAL OF 3 History of pulmonary embolism (02/2011) HX BILATERAL Hyperlipidemia Hypertension Ischemic cardiomyopathy Mitral regurgitation On anticoagulant therapy PAD (peripheral artery disease) (03/14/14) L common iliac angioplasty/stent, stenting of totally occluded R SFA, angioplasty of occluded RCF 2006. Angioplasty to R SFA in-stent stenosis 2013. PVCs (premature ventricular contractions) Restrictive lung disease Right lower lobe pulmonary nodule Noted on CT 04/03, 12mo f/u recommended. 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 S/P cataract surgery R/L S/P coronary artery stent placement (1995) RCA Status post angioplasty (2013) to R SFA in stent stenosis Status post surgery (12/15/17) placement of seton drain in transsphinteric fistula - 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 AND ALWAYS IS DRAINING Family History Mother Thyroid disease Family history of diabetes mellitus Father Coronary heart disease Emphysema of lung Family history of diabetes mellitus Uncle Family history of colon cancer Denies family history of Colon cancer Ovarian cancer Prostate cancer Myocardial infarction Breast cancer Lung cancer Colorectal cancer Social History Smoking Status: Current every day smoker Tobacco Type: Pipe Cigarettes Per Day: COUPLE TIMES A DAY TO SMOKE PIPE; Second Hand Exposure: No; Do You Dip or Chew Tobacco: No; Hx Alcohol Use: No Hx Substance Use: No Preferred Language: Malaysian Communication Ability: Effective Communication Ability Comment: PHONE INTERVIEW DONE WITH DAUGHTERSHADE PER PT REQUEST Visual Impairment: No Limitations Hearing Ability: Use of Hearing Aid Lamp Shades Supervisor Required: No Beliefs That Will Affect Care: None marital status: / Current Living Situation: Alone Current Living Situation Comment: lives alone in apartment current occupational status: retired How many Children do You have: 2 Feels Safe at Home: Yes Childhood Exposure to Second-Hand Smoke: No Diet Comment: regular caffeine: Yes (2-3 cups coffee) during the past year weight has: increased > 10 lbs Dental Care, Regularly: Yes Physical Activity Frequency: 1-2 Times per Week Seatbelt Use: always Sunscreen Use: Yes Assistive Devices: Cane and Walker Review of Systems Review of Systems: Per HPI. Somewhat depressed about living alone. Physical Exam Physical Exam: The patient is alert and oriented. Mood and affect appeared normal. He answered all questions appropriately. HEENT: Pupils are equal and reactive to light and accommodation. Extraocular movements are intact. The sclerae are anicteric. Neuro: Cranial nerves intact Lungs: Clear to auscultation bilaterally. He has good air movement without use of accessory muscles. No rales wheezes or rhonchi. Cardiac: Heart demonstrates victor manuel irregular rhythm Pulses: The patient has palpable radial pulses bilaterally that are equal in intensity Extremities: There was no evidence of hypoperfusion. There is no cyanosis or clubbing. Bilateral foot edema Skin: I did not appreciate any rashes on examination today. Atrial fibrillation Results & Data Vital Signs (Past 12 Hours) Vital Signs Temp Pulse Resp BP Pulse Ox O2 Del Method 12/03/22 15:52 36.5 C 50 L 16 129/67 96 Room Air 12/03/22 11:41 36.4 C L 61 18 126/53 L 96 Room Air 12/03/22 08:00 Room Air 12/03/22 07:00 36.8 C 45 L 18 125/51 L 97 Room Air Laboratory Results Abnormal Lab Results 12/03/22 05:39 Sodium 140 Potassium 4.0 Chloride 102 Carbon Dioxide 28 Anion Gap 10 BUN 72 H Creatinine 2.46 H Est Cr Clr Drug Dosing 26.8 Est GFR ( Amer) 27.0 Est GFR (Non-Af Amer) 23.3 BUN/Creatinine Ratio 29.3 H Glucose 86 Calcium 8.2 L Diagnostic Findings Echocardiogram performed 12/01/2022: Ejection fraction 30 to 35%. Severe LVH. Mildly reduced right ventricular function. Mild biatrial dilation. Mild aortic regurgitation. Moderate to severe mitral regurgitation. ECG Additional Comments: Atrial flutter with bifascicular block PG Care Time/CCT Total # of Minutes Spent Total Time Spent with Patient: Total time spent is greater than 50% in coordination of care (as documented) at patient's floor/unit and/or counseling patient: Coding Level of Care Code 22235 INT INP/OBS CARE 3/75MIN Diagnoses Ischemic cardiomyopathy I25.5 Atrial flutter I48.92 Bradycardia R00.1
[2022-12-03] MEDS: METOPROLOL SUCC 25MG EXT REL TAB PO SCH (20:00)
[2022-12-03] MEDS ORDERED: SOD PHOSPHATE/SOD BIPHOSPHATE ENEMA 132 ML BTL PR PRN (20:13)
[2022-12-03] MEDS ORDERED: GLYCERIN ADULT 12 SUPP/BOX SUPP PR PRN (20:13)
[2022-12-03] MEDS ORDERED: POLYETHYLENE (MIRALAX) 17 GM PACK PO ONE (20:16)
[2022-12-03] MEDS: ASPIRIN 81 MG ECTAB PO SCH (20:31)
[2022-12-04 06:52] LABS: BUN Creatinine Ratio 30.2 (10-20); Calcium 8.3 mg/dl (8.6-10.3); Creatinine Clr Calc Pharmacy 30.7 ml/min; Est GFR (African American) 31.8 ml/min; Est GFR (Non-African American) 27.5 ml/min; Potassium 4.1 mmol/L (3.5-5.1)
[2022-12-04] MEDS: FINASTERIDE 5 MG TAB PO SCH (08:01)
[2022-12-04] MEDS: guaiFENesin 600 MG TABCR PO SCH (08:01)
[2022-12-04] MEDS: POTASSIUM CHLORIDE CRTAB 20 MEQ TABCR PO SCH (08:01)
[2022-12-04] MEDS: APIXABAN 2.5 MG TAB PO SCH (08:01)
[2022-12-04] MEDS: FLUTICASONE/VILANTEROL 200/25MCG 14 PUFFS/INHALER INH SCH (08:02)
[2022-12-04] MEDS: CHOLECALCIFEROL 1,000 UNITS 25 MCG TAB PO SCH (08:02)
[2022-12-04] MEDS: FUROSEMIDE 20 MG TAB PO SCH (08:02)
[2022-12-04] MEDS ORDERED: POLYETHYLENE (MIRALAX) 17 GM PACK PO SCH (09:00)
--- NOTE | 2022-12-04 11:26 | Discharge Summary ---
Discharge Summary Date of Service December 04, 2022 Notes For Next Care Provider Add Advair Admission HPI Per Admitting Provider 81yo male with PMHx significant for combined systolic/diastolic CHF, paroxysmal atrial fibrillation (on eliquis), HTN, HLD (statin intolerant), CVA (R CEA in June 2019 w/ Dr Almazan), PVD (R SFA stent Aug 2006), CAD (RCA BMS 1995), ischemic cardiomyopathy (EF 40-45%) presented with increased LE swelling and 15lb weight gain over the past month along with a cough/congestion. CXR on admission w/ cardiomegaly with pulmonary vascular congestion, emphysema. Of note, CXR on 11/19 for ER visit also noted pulm congestion as well, however patient was provided 1L @ 125cc/hr before repeat labs drawn w/ improvement in lactic/no significant bump in troponin and was discharged. [place] weak/nauseated after starting amiodarone for afib w/ reportedly blackened stools. He notes recent meds w/ amiodarone in place of the digoxin by Dr Reyes in September due to frequent episodes of his afib and during 11/20 appointment was told to hold amiodarone and metoprolol at that time. Reported feeling better off the amiodarone and less nausea. Still slightly light headed at that time with episodes of afib/symptoms occuring at least once daily but he "doesn't keep track" He confirms he has not taken his metoprolol since his appointment and has no significant improvement Got patient up to use urinal and telemetry up to the 130-140s. Discussed resuming metoprolol given likely elevated HR contributing to fluid retention. He notes he also was given prednisone for his cough w/o any improvem ent and he had increased LE swelling. Having difficulty sleeping at night/waking up, feeling like he is drowning. Coughing up salas colored phlegm, coughing fits, some blood tinge sputum at times w/ sputum but no mundo hemoptysis. To alert if any worsening. He note, increased dose torsemide to 20mg BID end of last weekend on Wednesday (recently decided to make his PCP Dr Arango from the [place]). Was also given some steroids at that time, also suspect could be contributing to fluid retention. Weights steadily increasing, prior "dry weight" of 218lb, reported 15lb weight gain in past 2 weeks. Weight 106.1kg on 11/20, currently 111.4kg (245lb) Discussed resuming his metoprolol as suspect rate control relating to volume retention. He is agreeable. Daughter Kelly at bedside (works in [employer]). Patient has been independent at home recently but did have a stay at rehab over a year ago for falls/cellulitis and hadn't ever been the same but that he has been independent at home recently. Confirmed Full Code for CPR/intubation if was for short term but does not want any termite treater helper/heroic measures. Denies chest pain at present. ER Course: Lasix 40mg IV x 1, ASA 324 mg x1, zofran 4mg IV x 1. CXR w/ congestion. Troponin 179.4 on initial draw WBC 10.4k (recent steroid use), chemistry w/ Na 139, K 4.2. BUN/Cr 66/2.22 (was 40/2.3 when see in ER 11/19) BNP added along with magnesium -- pending. Admission Exam Per Admitting Provider General: chronically ill appearing male sitting up in bed, no acute distress but needing to get up to urinate -- urinal w/ 100-150 clearer yellow urine draining HEENT: head normocephalic, prior scar from CEA noted, mmm, trachea midline Resp: diffuse wheezing bilaterally, diminished in the bases, on 2L NC, able to talk in completes sentences but does get winded, +cough CV: irregularly irregular, no obvious murmur, 2-3+ pitting edema to the thighs, pulses palpable, chronic venous stasis changes noted GI: +BS, slight distension, NT : no bills, urinal at bedside MSK/Neuro: no focal deficit, no confusion, answering questions appropriately, strength equal bilaterally Psych: AOx3, cooperative Principal Dx & Hospital Course #1 = Principal Diagnosis (1) Acute on chronic HFrEF (heart failure with reduced ejection fraction): Hx CHF with some suspected confusion with medications in the recent past, Cardiology and CHF Program asked to see patient to clarify home regimen. With complaints of SOB, weight gain on admission, resolved. Admission CXR with pulmonary vascular congestion. Echo 12/01/22 with moderate to severely reduced EF 30-35%, and discussion with cardiology feel that this is about the same as last echocardiogram. Troponin trend mild elevation without evidence of ACS on EKG. telemetry without significant arrhythmia, has been in atrial fibrillation. Dry weight reported at 218lb, on admission weight was 245-> 217 with diuresis. Continue at home continue Lasix 20 mg p.o. daily, with cardiology follow up (CHF clinic, Dr. Reyes). 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 Plan discussed with Drs. Mary and Amy. (2) COPD (chronic obstructive pulmonary disease): History of, not on supplemental oxygen at home. Continues to smoke a pipe at times, encouraged cessation. On room air and comfortable at this time. Duonebs as needed for wheezing. Saline nebs and Mucinex for sputum. Has a smoking history, no CT with contrast on chart suspected due to CKD with low GFR. Suspect sputum is due to frequent COPD-related cough in patient on Eliquis. Was previously on Advair, resumed this admission and recommend continuation on discharge. Recommend follow up with [facility] for formal PFTs and further titration of inhalers if needed, as well as possible ongoing work up of blood- tinged sputum. (3) Paroxysmal atrial flutter: History of, not in RVR this admission. Continue Eliquis and metoprolol succinate, further medication changes if indicated per cardiology. Electrophysiology evaluated patient 12/03 and recommends ablation for atrial flutter, will arrange outpatient in conjunction with patient's cardiology team. It is possible that patient will need a ICD/pacemaker depending on rate, in the setting of decreased EF. (4) Hypertension: Typically on lisinopril and metoprolol, continue these. BP range 120s to 170s systolic, recommend PCP follow-up. (5) Hyperlipidemia: History of, intolerant of statins. Follow up with Cardiology outpatient. (6) History of pulmonary embolism: Continue Eliquis. (7) Coronary artery disease: Continue aspirin, lisinopril, beta farida. Would recommend cholesterol medication for risk reduction however patient is intolerant of statins. (8) Diabetes mellitus, type 2: A1c 6.0% with diet control. Discontinued Accuchecks per patient request, had been within range prior to cessation. DM2 diet. Jardiance could be considered however not recommended in patients with GFR <20, which patient is very close to at baseline. (9) Chronic kidney disease, stage 3 (moderate): With baseline GFR in mid 20s, and creatinine baseline widely variable in 1.7-2.2 range. Creatinine 2.15 today. Plan Disposition: Home with home health services, close follow-up with cardiology (CHF clinic, Dr. Reyes, Dr. Mary for multidisciplinary cardiology approach for A-fib/CHF) Discharge Exam Constitutional WD/WN, vitals as above Respiratory normal respiratory effort, lungs clear to auscultation Cardiovascular Heart rate irregularly irregular, no murmurs Psychiatric A+Ox3, euthymic affect Updated Medication List Medication Instructions Recorded Confirmed Type finasteride 5 mg tablet 5 mg PO QAM 06/28/20 11/30/22 History polyethylene glycol 3350 17 gram 17 g PO BID PRN Constipation 04/03/21 11/30/22 History oral powder packet (Miralax) nitroglycerin 0.4 mg sublingual 0.4 mg sublingual Q5M PRN chest 09/03/22 11/30/22 Rx tablet pain #25 tabs aspirin 81 mg tablet,delayed 81 mg PO QPM 11/19/22 11/30/22 History release cholecalciferol (vitamin D3) 50 50 mcg PO QAM 11/19/22 11/30/22 History mcg (2,000 unit) capsule ondansetron 4 mg disintegrating 4 mg PO Q8H PRN nausea and 11/19/22 11/30/22 Rx tablet vomiting #30 tabs ipratropium 0.5 mg-albuterol 3 mg 3 ml inhalation DIRECTED 11/30/22 11/30/22 History (2.5 mg base)/3 mL nebulization soln prednisone 20 mg tablet 40 mg PO DAILY 11/30/22 11/30/22 History amiodarone 200 mg tablet 200 mg PO BID #60 tabs 12/04/22 Rx apixaban 2.5 mg tablet (Eliquis) 2.5 mg PO BID #60 tabs 12/04/22 Rx fluticasone 250 mcg-salmeterol 50 1 inh inhalation BID #60 ea 12/04/22 Rx mcg/dose blistr powdr for inhalation (Advair Diskus) furosemide 20 mg tablet 20 mg PO DAILY #30 tabs 12/04/22 11/30/22 Rx lisinopril 2.5 mg tablet 2.5 mg PO QAM #90 tabs 12/04/22 Rx metoprolol succinate 25 mg 25 mg PO QPM #90 tabs 12/04/22 Rx tablet,extended release 24 hr potassium chloride 10 mEq 20 meq PO QAM #180 tabs 12/04/22 Rx tablet,extended release Hospital Stay Data Consultations 11/30/22 14:31 ED Decision to Admit Stat 11/30/22 16:23 HIM [Consult Health Information Management] Stat 11/30/22 16:40 Consult Cardiology Routine [facility] CHF Program Referral Routine 12/03/22 08:24 Consult Cardiac Electrophysiology Routine Pending Results Patient Have Any Pending Studies at Discharge: No Discharge Instructions Given to Patient (Per Discharging Provider) You were admitted to the hospital for heart failure exacerbation. Please see the information below about heart failure diet, salt intake, and weight checking. You will have follow up with both Dr. Reyes for your regular Cardiology follow up, Kierra Santos with the Heart Failure clinic for fluid overload monitoring, and Dr. Mary for a possible heart ablation for your atrial arrhythmia. Please look at the master list of medications attached to this discharge paperwork, to take to every doctor appointment, and to match it to your medication list from the pharmacy. Total Time Total Time Spent Total Time Spent (In Minutes): 40 minutes Coding Level of Care Code 65920 INP/OBS DISCH >30 MIN Diagnoses Acute on chronic HFrEF (heart failure with reduced ejection fraction) I50.23 COPD (chronic obstructive pulmonary disease) J44.9 COPD type: unspecified COPD Paroxysmal atrial flutter I48.92 Hypertension I10 Hypertension type: essential hypertension Hyperlipidemia E78.5 Hyperlipidemia type: unspecified History of pulmonary embolism Z86.711 Coronary artery disease I25.10 Associated angina: without angina Coronary Disease-Associated Artery/Lesion type: [place] artery [place] vs. transplanted heart: [place] heart Diabetes mellitus, type 2 E11.9 Chronic kidney disease, stage 3 (moderate) N18.3
== END 2022-12-04 15:26 | disposition home health service (06) | DRG 291 ==
LOC: ED 12:37 → 2S 15:32 → SUATTDRO 15:32 → 2S 16:16

== ENCOUNTER 2023-01-21 06:20 | Observation (INO) ==
[2023-01-21] MEDS ORDERED: LIDOCAINE 1% LOCAL 20 ML VIAL ONE ×2 (07:08→09:46)
[2023-01-21] MEDS ORDERED: MIDAZOLAM HCL 5 MG/ML 1 ML VIAL ONE (07:57)
[2023-01-21] MEDS ORDERED: ISOPROTERENOL HCL 0.2 MG/ML 5 ML AMP IV ONE (07:58)
[2023-01-21] MEDS ORDERED: fentaNYL citrate PF 100 MCG/2 ML VIAL ONE ×2 (07:58→10:00)
--- NOTE | 2023-01-21 08:04 | History & Physical Bridge Note ---
Date of Service January 21, 2023 History & Physical Bridge Note I have examined the patient, reviewed the History & Physical and in the interval since the performance of the History & Physical I have noted the following changes of clinical significance: no changes noted
--- NOTE | 2023-01-21 08:07 | Pre Anesthesia Assessment ---
Date of Service January 21, 2023 Pre Sedation Assessment Vital Signs Temp Pulse Resp BP Pulse Ox O2 Del Method 01/21/23 07:30 36.7 C 59 L 16 167/83 H 98 Room Air Cardiovascular + regular rate and + irregularly irregular Respiratory + respiratory effort normal Pre-Sedation Airway Assessment Smoking Status: Current every day smoker Hx Sleep Apnea: No Hx Difficult Intubation: No Short, Thick Neck: No Thyromental Distance: > or= 3.5 Finger Breadths Oral Cavity: + Dentures Mallampati Class: III ASA: ASA3 NPO Status Date of Last Intake of Fluids: 01/20/23 Time of Last Intake of Fluids: 20:00 Date of Last Intake of Solid Food: 01/20/23 Time of Last Intake of Solid Foods: 20:00 Procedure Planning Contraindications for Sedation: none Current Medications Reviewed: Yes Notes The planned sedation has been discussed with the patient. Informed Consent was obtained. I have identified the patient, determined the appropriateness of sedation and have assessed the patient immediately prior to the procedure. All medicine(s) and interventions are by my order.
[2023-01-21] MEDS ORDERED: HEPARIN (PORCINE) 1000 UNIT/ML 10 ML (CATH LAB USE ONLY) ONE (08:18)
[2023-01-21] MEDS ORDERED: ceFAZolin 330 MG/ML 1 GM VIAL ONE (09:29)
[2023-01-21] MEDS ORDERED: WATER, STERILE FOR INJ 10 ML VIAL ONE (09:46)
[2023-01-21] MEDS ORDERED: BUPIVACAINE 0.25% PF 30 ML VIAL ONE (09:46)
[2023-01-21] MEDS ORDERED: VANCOMYCIN HCL 1000MG/20ML VIAL ONE (09:46)
--- NOTE | 2023-01-21 11:13 | Electrophysiology Report ---
Date of Service January 21, 2023 Electrophysiology Procedure Electrophysiology Procedure Report Procedure performed: Complete electrophysiologic testing including pacing the left atrium via the coronary sinus, three-dimensional electroanatomical mapping Staff lift electrician: Yuri Mary MD Indication: The patient is an 82-year-old gentleman with a history of bradycardia and what appears to be atrial flutter. In the hopes of achieving improved AV synchrony and to facilitate more aggressive medical therapy he was brought to the electrophysiology suite for EP testing and possible ablation. Procedure in detail: The patient was informed of the risk benefits and alternatives to the intended procedure. He understood and wished to proceed. He is taken to the electrophysiology suite in a fasting state. Conscious sedation was administered per protocol and the patient was monitored electrocardiographically throughout today's procedure. The right femoral area was prepped and draped in usual sterile fashion. This area was anesthetized using subcutaneous ministration of a lidocaine and Marcaine solution. Ultrasound guidance was used to access the right femoral vein 3 times. Sheath was placed over guidewires at this site and used to facilitate passage of the EP catheters to the respective chambers on fluoroscopic guidance. This included right ventricular, coronary sinus and right atrial mapping catheter. The patient's baseline conduction system was characterized. Three-dimensional electroanatomical mapping was then performed in order to characterize the baseline tachycardia. It was determined that the arrhythmia was not a typical right atrial flutter. At this point the catheters and sheaths were removed. Hemostasis was achieved at the access site using manual pressure. The patient tolerated procedure well. There were no immediate complications. Baseline intracardiac intervals Cycling length of the atrial tachycardia was 300 ms. However, the tachycardia cycle length did have significant variability. [facility] [place] occurred at 300 ms The ventricular refractory period was 280 ms AV merary conduction cannot be characterized due to the presence of a baseline atrial arrhythmia Tachycardia The patient did have an atrial tacky arrhythmia. Three-dimensional electroanatomical mapping could not be performed as the cycle length varied considerably relative to any reference point. At times the arrhythmia appeared to be regular, and at times the activation changed and it was irregular. Attempts and entrainment were not successful. No ablation was performed Impression: Atrial fibrillation versus atypical atrial flutter. [facility] Electrophysiology codes EP Procedure 1: Electrophysiology: 99549-43 Comp EPS w/LA pacing Procedure 2: Electrophysiology: 94408 3D mapping PG Moderate Sedation Codes Moderate Sedation Codes Procedure 1: Sedation/Anesthesia: 27089 Mod Sedation by the same physician;Init15 Min Child Age 5 & Up Procedure 2: Sedation/Anesthesia: 82423 Mod Sedation by the same physician; Ea [id number] Minutes
[2023-01-21] MEDS ORDERED: ACETAMINOPHEN 325 MG TAB PO PRN (11:14)
--- NOTE | 2023-01-21 11:14 | Electrophysiology Report ---
Date of Service January 21, 2023 Electrophysiology Procedure Electrophysiology Procedure Report Procedure performed: Implantation of biventricular ICD Staff bleaching supervisor: Yuri Mary MD Indication: The patient is an 82-year-old gentleman with a history of a cardiomyopathy and ejection fraction less than 35%. He is on optimal medical therapy. He has not had revascularization in the past 90 days or suffered a myocardial infarction in the past 40 days. He has an anticipated longevity greater than 1 year and therefore was felt to be a good candidate for an ICD as primary prevention against sudden cardiac . Biventricular device was selected and the patient does suffer from bradycardia and is expected to pace the ventricle well over 50% of the time. Additionally, he does have a wide QRS with a duration greater than 170 ms in the setting of [place] [employer] class III heart failure and reduced LV function. Procedure in detail: The patient was informed of the risks benefits and alternatives to the intended procedure and she wished to proceed. He was taken to the electrophysiology suite in a fasting state. A preoperative antibiotic had been administered. The patient was monitored electrocardiographically throughout today's procedure and conscious sedation was administered per protocol. The left upper pectoral area is prepped and draped in usual sterile fashion. This area was anesthetized using subcutaneous administration of a xylocaine solution. An incision was made at this site and carried down to the prepectoralis fascia using sharp dissection. Electrocautery was also employed for dissection as well as for hemostasis. A device pocket was fashioned tissues above the pectoralis muscle. Subsequent to this maneuver the left axillary vein was accessed using modified Seldinger technique. Sheaths were placed over guidewires at this site and use facilitate passage of the pacing leads to the respective chambers under fluoroscopic guidance. This initially included right ventricular and right atrial leads. Subsequently a guiding catheter was placed through the remaining sheath and used to engage the coronary sinus. Coronary sinus venography was then performed in order to identify a suitable target vessel. Once identified standard guidewire techniques were employed in order to deliver the pacing lead to the target vessel. Adequate sensing and threshold parameters as well as the absence of diaphragmatic stimulation were confirmed prior to removal of the guiding catheter. The proximal portions of the leads were then sutured to the prepectoralis fascia using nonabsorbable suture. The device pocket was irrigated with antibiotic solution. The leads were then attached to the device. The device and leads were then placed in the pocket and pocket was closed in 3 layers of absorbable suture. Steri-Strips and sterile dressing were applied. The device was tested noninvasively prior to conclusion the procedure. The patient tolerated procedure well there no immediate complications. Equipment used: New pulse generator: Footwear Sales [employer]inator [employer]. Model number: [id number] serial number [id number] Right atrial lead: Footwear Sales [employer]inator [employer]. Model number: 5076 serial number [id number] Right ventricular lead: Footwear Sales Coordinator [employer]. Model number: 6935M serial number [id number] Coronary sinus lead: Footwear Sales Coordinator [employer] model #4298 serial number [id number] Measured data: Right atrial lead: Patient was in atrial fibrillation and these waves measure 3.3 mV. No pacing was performed. Pacing impedance was 685 ohms Right ventricular lead: R waves measured 21.3 mV. Pacing threshold was 0.5 V at 0.5 ms with a pacing impedance of 753 ohms Coronary sinus lead: R waves measured 16.8 mV. Pacing threshold was 1.5 V at 0.5 ms with a pacing impedance of 979 ohms in the LV 3 to LV 4 configuration Impression: Successful implantation of biventricular ICD [facility] Electrophysiology codes Pacing Procedure 1: Pacin BiV electrode w/Pacer / ICD implant, add on code ICD Procedure 1: ICD: 04694 Insert single or dual ICD system Miscellaneous Procedures Procedure 1: EP Miscellaneous: 71586-54 Venography, CS supevsion/interp PG Moderate Sedation Codes Moderate Sedation Codes Procedure 1: Sedation/Anesthesia: 03231 Mod Sedation by the same physician;Init15 Min Child Age 5 & Up Procedure 2: Sedation/Anesthesia: 53089 Mod Sedation by the same physician; Ea [id number] Minutes
--- NOTE | 2023-01-21 11:14 | Post Anesthesia Assessment ---
Date of Service January 21, 2023 Post Sedation Assessment Vital Signs Temp Pulse Resp BP Pulse Ox O2 Del Method 01/21/23 07:30 36.7 C 59 L 16 167/83 H 98 Room Air Recovery Score Activity: Moves 4 extremities Respiration: Deep Breath/Cough Circulation: +/-20% PreAnes Value Consciousness: Fully Awake Oxygen Saturation: > 92% On Room Air Discharge Sedation Level of Care: Fast Track Phase II Post Sedation Plan On clinical assessment, the patient appears to have tolerated the sedation without complications. Patient is recovering as anticipated. Patient will continue to be monitored by nursing and may be discharged when sedation discharge criteria are met per below protocol. Upon Completions of procedure up to 15 minutes continue every 5 minute vital signs and the P.A.R. score; then discharge to a Phase I or Fast Track to Phase II per the following guidelines: * Discharge Patient to appropriate Phase II area if PAR is 8 or greater or return to pre- procedure baseline. The post - procedure orders will be as directed. * If PAR score is less than 8 or not return to pre-procedure baseline then patient will follow Phase I monitoring till PAR is reached for Phase II. The Phase I may be done in procedure room or may call to secure a Phase I area. * If naloxone or flumazenil are used for reversal, hold in Phase I for continued monitoring from when last reversal dose was given for a minimum of 60 minutes or longer pending the nurse and/or physician discretion of patient condition before discharge to Phase II. Please call the Sedation Physician to re-evaluate and complete post-note for discharge to Phase II area. Do NOT discharge from procedure sedation or Phase 1 until post- sedation evaluation note is complete by procedure /sedation MD Sedation Discharge Instructions to be given to the patient at discharge to home.
[2023-01-21] MEDS ORDERED: ONDANSETRON 4 MG OD TAB PO PRN (11:24)
[2023-01-21] MEDS ORDERED: NITROGLYCERIN SL 0.4 MG/TAB TAB SL PRN (11:24)
[2023-01-21] MEDS ORDERED: oxyCODONE HCL IR 5 MG TAB (IMMEDIATE RELEASE) PO PRN (11:25)
[2023-01-21] MEDS ORDERED: FUROSEMIDE 40 MG TAB PO ONE (13:20)
[2023-01-21] MEDS ORDERED: lisinopril 2.5 MG TAB PO ONE (13:22)
[2023-01-21] MEDS ORDERED: POTASSIUM CHLORIDE 10 MEQ TABCR PO SCH (13:30)
[2023-01-21] MEDS ORDERED: ceFAZolin 1000MG 1,000 MG/7.5 ML SYR IV ONE (18:00)
[2023-01-21] MEDS: AMIODARONE 200 MG TAB PO SCH (20:43)
[2023-01-21] MEDS ORDERED: ASPIRIN 81 MG ECTAB PO SCH (21:00)
[2023-01-21] MEDS ORDERED: METOPROLOL SUCC 25MG EXT REL TAB PO SCH (21:00)
[2023-01-22] MEDS: AMIODARONE 200 MG TAB PO SCH (07:59)
[2023-01-22] MEDS ORDERED: POTASSIUM CHLORIDE CRTAB 20 MEQ TABCR PO SCH (09:00)
[2023-01-22] MEDS ORDERED: FUROSEMIDE 40 MG TAB PO SCH (09:00)
[2023-01-22] MEDS ORDERED: lisinopril 2.5 MG TAB PO SCH (09:00)
--- NOTE | 2023-01-22 09:31 | Discharge Summary ---
Date of Service January 22, 2023 Admission HPI Per Admitting Provider The patient is an 79-year-old male with a past medical history including diabetes mellitus type 2, elevated troponin, hypervolemia, chronic anticoagulation, history of pulmonary embolism, right knee osteoarthritis, hyper lipidemia, ED, anorectal fistula, HFpEF, CKD stage III, carotid artery stenosis, atrial fibrillation, asthma, hypertension, restrictive lung disease, subclavian artery stenosis, right ICA stenosis, right lower lobe pulmonary nodule, COPD, CAD, PVCs and PAD. he was noted during recent hospitalization have both bradycardia and what appeared to be in atrial flutter. He presents for electrophysiologic testing, possible ablation and possible implantation of a biventricular ICD. Principal Diagnosis Cardiomyopathy Discharge Exam with the day of discharge the patient was feeling well There is no evident complication at the device implant site left upper pectoral area No evidence of bleeding in the right groin Discharge Data Allergies Allergy/AdvReac Type Severity Reaction Status Date / Time ciprofloxacin Allergy Intermediate Rash Verified 01/21/23 07:37 warfarin Allergy Intermediate hives, rash Verified 01/21/23 07:37 niacin AdvReac Severe LEG Verified 01/21/23 07:37 [From Niaspan WEAKNESS Extended-Release] Xjambmj-KBY-EiV Reductase AdvReac Severe muscle Verified 01/21/23 07:37 Inhibitor weakness,pain, [Jyruaed-Sje-Aqc Reductase cramps Inhibitor] umeclidinium AdvReac Unknown "NOT Verified 01/21/23 07:37 [From Anoro Ellipta] ALLERGIC,DOES NOTHING FOR ME" vilanterol AdvReac Unknown "NOT Verified 01/21/23 07:37 [From Anoro Ellipta] ALLERGIC, DOES NOTHING FOR ME" Procedures Performed Operation Date: 01/21/23 08:00 Actual Procedures s EPS with Induction (RA,HIS, RV) - Yuri Mary MD s Lead LV (No Priopr Implant) - Yuri Mary MD s Ultrasound Vascular Access - uYri Mary MD p ICD Insertion Single or Dual - Yuri Mary MD Ordered Studies 01/21/23 08:00 EP Lab Images for PACS ONCE Hospital Course (1) Ischemic cardiomyopathy: Plan 1. atrial flutter: On the day of admission the patient underwent electrophysiologic testing this included three-dimensional electro anatomical mapping. The baseline arrhythmia did not appear to be a typical right atrial flutter. In fact, the arrhythmia appeared to be more consistent with an atrial fibrillation. As such, no catheter based ablation was performed. Based on his known history of bradycardia and associated LV dysfunction he was felt to be a good candidate for biventricular ICD. He underwent this procedure without evident complication. On the morning of discharge chest x-ray demonstrated good lead position without evidence of pneumothorax. device function was normal. No evident complication at the implant site. Total Time Total Time Spent Total Time Spent (In Minutes): 20 Discharge Plan Discharge Items Patient Disposition: Home - Self-Care Reason For Visit: ICD IMPLANT Discharge Diagnosis: Cardiomyopathy Activity: Per Instructions section Activity Comment: No lifting >10# or straining for 5 days Lifting: No more than 10 pounds Lifting Comment: No lifting left arm above shoulder or behind neck for 6 weeks Bathing: Keep incision dry Bathing Comment: Keep wound dry and steri-strip intact until f/u next week Driving/Machine Use: Resume 1 day after discharge Non-emergency contact: Ship Scraper Call non-emergency contact if: your pain is not controlled, you have a fever, your wound has increased drainage and your wound pain has increased Follow-up/Referrals: [facility],Hospital [Primary Care Provider] - (Patient states he has all F/U appointment made. ) Addtl Attending Provider Instructions: do not resume Eliquis until WednesdayJanuary 24 Pending Studies at Discharge: No Stand-Alone Forms: [facility], Smoking Cessation Medications and DC Order Prescriptions: Continued potassium chloride 10 mEq tablet extended release 20 meq PO QAM Qty: 180 3RF metoprolol succinate 25 mg tablet extended release 24 hr 25 mg PO QPM Qty: 90 3RF lisinopril 2.5 mg tablet 2.5 mg PO QAM Qty: 90 3RF Eliquis 2.5 mg tablet 2.5 mg PO BID Qty: 60 2RF amiodarone 200 mg tablet 200 mg PO BID Qty: 60 3RF nitroglycerin 0.4 mg tablet, sublingual 0.4 mg sublingual Q5M PRN (Reason: chest pain) Qty: 25 3RF Rx Instructions: PER PT "NEVER GOT THIS MED, ASKED ABOUT IT, NEVER GOT IT".do not exceed 3 doses per episode furosemide [Lasix] 20 mg tablet 40 mg PO QAM Qty: 180 2RF polyethylene glycol 3350 [Miralax] 17 gram powder in packet 17 g PO BID PRN (Reason: Constipation) aspirin 81 mg tablet,delayed release (DR/EC) 81 mg PO QPM cholecalciferol (vitamin D3) 50 mcg (2,000 unit) capsule 50 mcg PO QAM ondansetron 4 mg tablet,disintegrating 4 mg PO Q8H PRN (Reason: nausea and vomiting) Qty: 30 0RF Discharge Orders: Discharge Order (Routine); Ordered 01/22/23 Ordered By: Yuri Mary Admission Data Admit Date/Time: 01/21/23 10:00 Attending Provider: Yuri Mary Admit Provider: Yuri Mayr Primary Care Provider: [facility] Other Interventions: Discharge Summary Assessment (RN) Last Done: 01/22/23 09:59 Coding Level of Care Code 03300 IN/OBS DISCH 30 MIN/LESS Diagnoses Ischemic cardiomyopathy I25.5
--- NOTE | 2023-01-22 09:43 | XRay Report ---
XR chest 2V PA/lateral CLINICAL HISTORY: Pacemaker insertion. COMPARISON STUDY: Chest radiograph November 30, 2022. Chest CT April 03, 2018. FINDINGS: There is no pneumothorax following placement of a left subclavian biventricular pacer/AICD. Cardiomegaly is unchanged. Small right and trace left pleural effusions are present. There is pulmon jerome vascular congestion. No consolidation is identified. IMPRESSION: 1. No pneumothorax following placement of a left subclavian biventricular pacer/AICD. 2. Small right and trace left pleural effusions. 3. Pulmonary vascular congestion. ACT 112: Negative or not required by law. Electronically signed by: Prashanth Osorio M.D. 01/22/2023 9:41 AM
--- NOTE | 2023-01-22 15:15 | Electrocardiogram Report ---
Test Reason : Blood Pressure : / mmHG Vent. Rate : 061 BPM Atrial Rate : 061 BPM P-R Int : 328 ms QRS Dur : 230 ms QT Int : 572 ms P-R-T Axes : 000 -80 086 degrees QTc Int : 575 ms Ventricular-paced rhythm Atrial fibrillation Biventricular pacemaker detected Abnormal ECG When compared with ECG of 02-DEC-2022 05:57, Electronic ventricular pacemaker is now Present Confirmed by Cy Trejo ([id number]) on 01/22/2023 3:14:32 PM Referred By: Kierra Santos Confirmed By:Cy Trejo
== END 2023-01-22 11:40 | disposition home or self-care (01) ==
LOC: EP 06:20 → 2S 10:00 → INTOOBSV 10:00
PROC: EPB.ICD (2023-01-21 08:00)

== ENCOUNTER 2023-02-09 18:28 | Inpatient (IN) ==
[2023-02-09] MEDS ORDERED: DIPHTHERIA/TETANUS/PERTUSSIS Vaccine (Tdap, Age 7+yrs) 0.5mL SYR/VL IM ONE (18:44)
--- NOTE | 2023-02-09 18:50 | Emergency Department Note ---
History of Present Illness General Chief complaint: Hip Pain Stated complaint: FALL, HIP PAIN Time Seen by Provider: 02/09/23 18:39 History of Present Illness Maximum Pain Intensity: 10 82-year-old male presents emergency department with a nonsyncopal fall as he was going to the bathroom using his walker he tried to pack it into the bathroom and he fell landing on his left hip. Patient did not hit his head. There is no loss of consciousness he denies any neck pain. Patient denies any other complaints except for left hip pain. Patient states he has a prosthetic left hip. It was replaced 25 years ago. Patient also had skin tears to the left arm and right arm. There were no other mitigating or alleviating factors. He states he is currently on Eliquis for atrial fibrillation. Home Medications Medication Instructions Recorded Confirmed Type polyethylene glycol 3350 17 gram 17 g PO BID PRN Constipation 04/03/21 02/09/23 History oral powder packet (Miralax) nitroglycerin 0.4 mg sublingual 0.4 mg sublingual Q5M PRN chest 09/03/22 02/09/23 Rx tablet pain #25 tabs cholecalciferol (vitamin D3) 50 50 mcg PO QAM 11/19/22 02/09/23 History mcg (2,000 unit) capsule ondansetron 4 mg disintegrating 4 mg PO Q8H PRN nausea and 11/19/22 02/09/23 Rx tablet vomiting #30 tabs amiodarone 200 mg tablet 200 mg PO BID #60 tabs 12/04/22 02/09/23 Rx apixaban 2.5 mg tablet (Eliquis) 2.5 mg PO BID #60 tabs 12/04/22 02/09/23 Rx lisinopril 2.5 mg tablet 2.5 mg PO QAM #90 tabs 12/04/22 02/09/23 Rx metoprolol succinate 25 mg 25 mg PO QPM #90 tabs 12/04/22 02/09/23 Rx tablet,extended release 24 hr potassium chloride 10 mEq 20 meq PO QAM #180 tabs 12/04/22 02/09/23 Rx tablet,extended release furosemide 20 mg tablet (Lasix) 40 mg PO QAM #180 tabs 12/23/22 02/09/23 Rx torsemide 10 mg tablet 10 mg PO QAM 02/09/23 02/09/23 History Allergies Allergy/AdvReac Type Severity Reaction Status Date / Time ciprofloxacin Allergy Intermediate Rash Verified 02/09/23 19:37 warfarin Allergy Intermediate hives, rash Verified 02/09/23 19:37 niacin AdvReac Severe LEG Verified 02/09/23 19:37 [From Niaspan WEAKNESS Extended-Release] [id number] Reductase AdvReac Severe muscle Verified 02/09/23 19:37 Inhibitor weakness,pain, [Sbcfalx-Pyy-Hnt Reductase cramps Inhibitor] umeclidinium AdvReac Unknown "NOT Verified 02/09/23 19:37 [From Anoro Ellipta] ALLERGIC,DOES NOTHING FOR ME" vilanterol AdvReac Unknown "NOT Verified 02/09/23 19:37 [From Anoro Ellipta] ALLERGIC, DOES NOTHING FOR ME" Past Med/Surg History Medical History Acute lower GI bleeding Anemia Anorectal fistula Arthritis Asthma Atrial fibrillation Carotid artery stenosis >70% NEHAL, <50% LICA Chronic kidney disease, stage 3 (moderate) COPD (chronic obstructive pulmonary disease) Coronary artery disease Remote h/o stent to RCA. Stent patent on 2005 cath per cardio. Degenerative arthritis of right knee Diabetes mellitus, type 2 Diastolic congestive heart failure Dyspnea Eczema Erectile dysfunction H/O difficult intubation Glidescope 2011 lap tracie History of anesthesia reaction SOMETIMES COMES OUT SWINGING History of OR (myocardial infarction) TOTAL OF 3 History of pulmonary embolism (02/2011) HX BILATERAL Hyperlipidemia Hypertension Ischemic cardiomyopathy Mitral regurgitation On anticoagulant therapy PAD (peripheral artery disease) (03/14/14) L common iliac angioplasty/stent, stenting of totally occluded R SFA, angioplasty of occluded RCF 2006. Angioplasty to R SFA in-stent stenosis 2013. PVCs (premature ventricular contractions) Restrictive lung disease Right lower lobe pulmonary nodule Noted on CT 04/03, 12mo f/u recommended. 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 Subclavian artery stenosis Vitamin D insufficiency Surgical History H/O inguinal hernia repair H/O total hip arthroplasty R/L H/O total knee replacement (09/2017) RIGHT History of cardiac cath MULTIPLE - TOTAL OF 16 STENTS - UNSURE WHEN MOST RECENT History of CEA (carotid endarterectomy) (06/01/18) R CEA w/ patch angioplasty History of hydrocelectomy History of incision and drainage (10/23/17) ischiorectal abscess Hx laparoscopic cholecystectomy S/P arterial stent (08/2006) R SFA POLICE CADET and stenting S/P cataract surgery R/L S/P coronary artery stent placement (1995) RCA Status post angioplasty (2013) to R SFA in stent stenosis Status post surgery (12/15/17) placement of seton drain in transsphinteric fistula - 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 AND ALWAYS IS DRAINING Family History Mother Thyroid disease Family history of diabetes mellitus Father Coronary heart disease Emphysema of lung Family history of diabetes mellitus Uncle Family history of colon cancer Denies family history of Colon cancer Ovarian cancer Prostate cancer Myocardial infarction Breast cancer Lung cancer Colorectal cancer Social History Smoking Status: Current some day smoker Tobacco Type: Pipe Cigarettes Per Day: COUPLE TIMES A DAY TO SMOKE PIPE; Second Hand Exposure: No; Do You Dip or Chew Tobacco: No; Hx Alcohol Use: No Hx Substance Use: No Preferred Language: Indonesian Communication Ability: Effective Communication Ability Comment: PHONE INTERVIEW DONE WITH DAUGHTERSHADE PER PT REQUEST Visual Impairment: No Limitations Hearing Ability: Use of Hearing Aid Office Executive Required: No Beliefs That Will Affect Care: None marital status: / Current Living Situation: Alone Current Living Situation Comment: lives alone in apartment current occupational status: retired How many Children do You have: 2 Feels Safe at Home: Yes Childhood Exposure to Second-Hand Smoke: No Diet Comment: regular caffeine: Yes (2-3 cups coffee) during the past year weight has: increased > 10 lbs Dental Care, Regularly: Yes Physical Activity Frequency: 1-2 Times per Week Seatbelt Use: always Sunscreen Use: Yes Assistive Devices: Cane and Walker Review of Systems A total of 10 systems reviewed and were otherwise negative Musculoskeletal: + joint pain Integumentary: + erythema Physical Exam Vital Signs Vital Signs - 24 hr 02/09/23 18:36 02/09/23 18:37 02/09/23 20:38 Temperature 37.6 C H 36.7 C Temperature Source Oral Oral Pulse Rate 71 77 Pulse Rate [Right Finger] 70 Pulse Rhythm Regular Pulse Rhythm [Right Finger] Regular Pulse Strength Normal Pulse Strength [Right Finger] Normal Respiratory Rate 18 16 Respiratory Effort / Characteristics Non-Labored Non-Labored Spontaneous Respiratory Depth Normal Normal Respiratory Pattern Regular Regular Blood Pressure [Right Arm] 123/78 Blood Pressure Mean [Right Arm] 93 Blood Pressure Position Lying Blood Pressure Position [Right Arm] Semi-fowlers Pulse Oximetry 97 98 Oxygen Delivery Method Room Air Room Air Sepsis Recent Fever Within 48 Hours No Sepsis New/Unexplained Change in Mental Status No Sepsis Action Taken by Nursing No Action Required GENERAL: Patient is awake alert in no acute distress patient is resting comfortably and showing no signs of anxiety EYES: The conjunctivae are clear. The pupils are round and reactive. EARS, NOSE, MOUTH AND THROAT: The nose is without any evidence of any deformity. Mucous membranes are moist. Tongue is midline. NECK: The neck is nontender and supple. RESPIRATORY: Normal respiratory effort is noted there is no evidence of wheezing rhonchi or rales CARDIOVASCULAR: Regular rate and rhythm noted there no murmurs rubs or gallops normal S1 normal S2. GASTROINTESTINAL: The abdomen is soft. Abdomen is nontender. BACK: No midline tenderness or or step-off noted range of motion in flexion extension as well as rotation no signs of muscle spasm noted MUSCULOSKELETAL/EXTREMITIES: Patient has tenderness to the left hip; patient is neurovascularly intact distally SKIN: Patient has bilateral upper extremity skin avulsions of the upper extremity left and right extremities; there are no petechiae, pallor or cyanosis noted. Evaluation of the skin tears the patient has significant avulsions to the skin in the left elbow region left forearm is not actively bleeding NEUROLOGIC: Patient is awake alert and oriented x3 strength is symmetric; GCS of 15 Course Reevaluation(s) Reevaluation #1: Patient was given IV fentanyl, Ancef, tetanus, wound care was provided by nursing. Time: 20:30 Consultations Consultation #1: Case was discussed with Dr. Pappas from orthopedics; states the patient may have a diet, check a CT of the pelvis for him, [facility]: [facility]30 Consultation #2: [facility] Time: 20:30 Administered Medications Discontinued Medications Diphtheria/Pertussis/Tetanus Vacc (Diphtheria/Tetanus/Pertussis Vaccine (Tdap, Age 7+Yrs) 0.5ml Syr/Vl) 0.5 ml IM .ONCE ONE Stop: 02/09/23 18:45 Last Admin: 02/09/23 19:22 Dose: 0.5 ml Documented By: SHELLY Fentanyl Citrate (Fentanyl Citrate Pf 100 Mcg/2 Ml Vial) 50 mcg IV NOW STA Stop: 02/09/23 19:36 Last Admin: 02/09/23 19:40 Dose: 50 mcg Documented By: SHELLY Cefazolin Sodium (Ancef 2000mg) 2,000 mg in 15 mls @ 3.75 mls/min IV NOW STA Stop: 02/09/23 19:38 Last Admin: 02/09/23 19:39 Dose: 3.75 mls/min Documented By: SHELLY Medical Decision Making Medical Records Attestation: I reviewed the patient's medical records. Home Medications Current Medication List: was personally reviewed by ms Laboratory Data Attestation: I reviewed the patient's lab results. Patient has an elevated creatinine as interpreted by me 02/09/23 19:05 02/09/23 19:05 Lab Results 02/09/23 02/09/23 02/09/23 Range/Units 19:05 19:05 19:05 WBC 11.50 H (4.8-10.8) K/ul RBC 4.33 L (4.70-6.10) M/uL Hgb 14.0 (14.0-18.0) g/dl Hct 41.5 L (42.0-52.0) % MCV 95.8 (80.0-100.0) fL MCH 32.3 (25.0-34.0) pg MCHC 33.7 (32.0-36.0) g/dL RDW Std Deviation 52.4 H (36.4-46.3) fL RDW Coeff of Anton 14.6 H (11.5-14.5) % Plt Count 239 (130-400) K/uL MPV 9.7 (9.4-12.4) fL Immature Gran % (Auto) 0.6 % Neut % (Auto) 77.9 % Lymph % (Auto) 9.9 % [place] % (Auto) 7.1 % Eos % (Auto) 3.7 % Baso % (Auto) 0.8 % Neut # (Auto) 8.96 H (1.40-6.50) K/uL Lymph # (Auto) 1.14 L (1.2-3.4) K/uL [place] # (Auto) 0.82 H (0.11-0.59) K/uL Eos # (Auto) 0.42 (0-0.50) K/uL Baso # (Auto) 0.09 (0-0.2) K/uL Immature Gran # (Auto) 0.07 (0.01-0.20) K/uL PT 11.5 (9.0-12.0) Seconds INR 1.1 (0.9-1.1) APTT 27.4 (21.0-31.0) Seconds PTT Ratio 1.0 Sodium 139 (136-145) mmol/L Potassium 3.9 (3.5-5.1) mmol/L Chloride 107 (98-107) mmol/L Carbon Dioxide 24 (21-32) mmol/L Anion Gap 8 (3-11) BUN 43 H (6-23) mg/dl Creatinine 2.52 H (0.6-1.4) mg/dl Est Cr Clr Drug Dosing 26.9 ml/min Est GFR ( Amer) 26.1 ml/min Est GFR (Non-Af Amer) 22.5 ml/min BUN/Creatinine Ratio 17.1 (10-20) Glucose 162 H (70-99(Fasting)) mg/dl Calcium 8.6 (8.6-10.3) mg/dl Total Bilirubin 0.8 (0.2-1.0) mg/dl AST 14 (13-39) U/L ALT 8 (7-52) U/L Alkaline Phosphatase 63 (34-104) U/L Total Protein 6.5 (6.0-8.3) gm/dl Albumin 3.6 (3.4-5.0) gm/dl Globulin 2.9 (2.5-4.0) gm/dl Albumin/Globulin Ratio 1.2 (0.9-2) Imaging Data Attestation: I personally reviewed and interpreted this imaging study as follows: My Impression: Left hip x-rays interpreted by me negative for dislocation however there is a periprosthetic intertrochanteric hip fracture Radiologist's Impression: Hip X-Ray 02/09/23 18:44 LEFT HIP 2 VIEWS CLINICAL HISTORY: Fall with left hip injury. FINDINGS: AP and crosstable lateral views of the left hip are compared to study dated 06/17/2020. The skeletal structures are osteopenic. A bipolar left hip arthroplasty is in near-anatomic alignment. There is a comminuted periprosthetic intertrochanteric fracture of the left proximal femur. Overlying soft tissue edema is observed. The visualized left hemipelvis appears intact. There is advanced atherosclerotic calcification of the left femoral artery. IMPRESSION: Comminuted periprosthetic intertrochanteric fracture of the left proximal femur. Electronically signed by: Dionte Altman M.D. 02/09/2023 7:46 PM MDM Narrative Medical decision making differential diagnosis includes skin tears, left hip fracture, prosthetic left hip dislocation, metabolic derangement Plan is to check labs, x-ray left hip, wound care EMS medical records were reviewed by me External medical records were reviewed by me Patient will receive wound care, the case was discussed with the orthopedic physician on-call, the patient was discussed with the hospitalist for admission Impression & Plan Anabel-prosthetic fracture around prosthetic hip, Avulsion of skin of left forearm, CKD (chronic kidney disease) Discharge Plan Visit Data Chief Complaint: Hip Pain Stated Complaint: FALL, HIP PAIN ED Provider: Scotty Hollins Discharge Problem: Anabel-prosthetic fracture around prosthetic hip, Avulsion of skin of left forearm, CKD (chronic kidney disease) Patient Disposition: Admitted As Inpatient Forms Stand Alone Forms: [facility] [place] [employer] Prescriptions Prescriptions: No Action potassium chloride 10 mEq tablet extended release 20 meq PO QAM Qty: 180 3RF metoprolol succinate 25 mg tablet extended release 24 hr 25 mg PO QPM Qty: 90 3RF lisinopril 2.5 mg tablet 2.5 mg PO QAM Qty: 90 3RF Eliquis 2.5 mg tablet 2.5 mg PO BID Qty: 60 2RF amiodarone 200 mg tablet 200 mg PO BID Qty: 60 3RF nitroglycerin 0.4 mg tablet, sublingual 0.4 mg sublingual Q5M PRN (Reason: chest pain) Qty: 25 3RF Rx Instructions: PER PT "NEVER GOT THIS MED, ASKED ABOUT IT, NEVER GOT IT".do not exceed 3 doses per episode furosemide [Lasix] 20 mg tablet 40 mg PO QAM Qty: 180 2RF polyethylene glycol 3350 [Miralax] 17 gram powder in packet 17 g PO BID PRN (Reason: Constipation) cholecalciferol (vitamin D3) 50 mcg (2,000 unit) capsule 50 mcg PO QAM ondansetron 4 mg tablet,disintegrating 4 mg PO Q8H PRN (Reason: nausea and vomiting) Qty: 30 0RF torsemide 10 mg tablet 10 mg PO QAM Referrals Referrals: [facility],Hospital [Primary Care Provider] -
[2023-02-09] MEDS ORDERED: ceFAZolin 2000MG 2,000 MG/15 ML SYR IV STA (19:35)
[2023-02-09] MEDS ORDERED: fentaNYL citrate PF 100 MCG/2 ML VIAL IV STA (19:35)
[2023-02-09 19:42] LABS: Basophils # (auto) 0.09 K/uL (0-0.2); Basophils % (auto) 0.8 %; Eosinophils # (auto) 0.42 K/uL (0-0.50); Eosinophils % (auto) 3.7 %; Hematocrit (blood only) 41.5 % (42.0-52.0); Immature Granulocytes # (auto) 0.07 K/uL (0.01-0.20); Immature Granulocytes % (auto) 0.6 %; Lymphocytes # (auto) 1.14 K/uL (1.2-3.4); Lymphocytes % (auto) 9.9 %; Mean Corpuscular Hemoglobin 32.3 pg (25.0-34.0); Mean Corpuscular Hgb Conc 33.7 g/dL (32.0-36.0); Mean Corpuscular Volume 95.8 fL (80.0-100.0); Mean Platelet Volume 9.7 fL (9.4-12.4); Monocytes # (auto) 0.82 K/uL (0.11-0.59); Monocytes % (auto) 7.1 %; Neutrophils # (auto) 8.96 K/uL (1.40-6.50); Neutrophils % (auto) 77.9 %; Platelet Count 239 K/uL (130-400); RDW Coefficient of Variation 14.6 % (11.5-14.5); RDW Standard Deviation 52.4 fL (36.4-46.3); Red Blood Count 4.33 M/uL (4.70-6.10)
--- NOTE | 2023-02-09 19:47 | XRay Report ---
LEFT HIP 2 VIEWS CLINICAL HISTORY: Fall with left hip injury. FINDINGS: AP and crosstable lateral views of the left hip are compared to study dated 06/17/2020. The skeletal structures are osteopenic. A bipolar left hip arthroplasty is in near-anatomic alignment. T here is a comminuted periprosthetic intertrochanteric fracture of the left proximal femur. Overlying soft tissue edema is observed. The visualized left hemipelvis appears intact. There is advanced ather osclerotic calcification of the left femoral artery. IMPRESSION: Comminuted periprosthetic intertrochanteric fracture of the left proximal femur. Electronically signed by: Dionte Altman M.D. 02/09/2023 7:46 PM
[2023-02-09 20:00] LABS: Albumin Globulin Ratio 1.2 (0.9-2); Albumin Level 3.6 gm/dl (3.4-5.0); BUN Creatinine Ratio 17.1 (10-20); Bilirubin,Total 0.8 mg/dl (0.2-1.0); Calcium 8.6 mg/dl (8.6-10.3); Creatinine Clr Calc Pharmacy 26.9 ml/min; Est GFR (African American) 26.1 ml/min; Est GFR (Non-African American) 22.5 ml/min; Globulin 2.9 gm/dl (2.5-4.0); Potassium 3.9 mmol/L (3.5-5.1); Total Protein 6.5 gm/dl (6.0-8.3)
[2023-02-09 20:35] LABS: INR 1.1 (0.9-1.1); Partial Thromboplastin Time 27.4 Seconds (21.0-31.0); Prothrombin Time 11.5 Seconds (9.0-12.0)
--- NOTE | 2023-02-09 21:08 | History & Physical Report ---
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: (5) Ischemic cardiomyopathy: (6) CHF (congestive heart failure): (7) Paroxysmal atrial fibrillation with RVR: (8) PAD (peripheral artery disease): (9) PVCs (premature ventricular contractions): (10) On anticoagulant therapy: (11) Hypertension: (12) Hyperlipidemia: (13) History of pulmonary embolism: (14) History of IA (myocardial infarction): (15) Diabetes mellitus, type 2: (16) Coronary artery disease: (17) Carotid artery stenosis: (18) Chronic anticoagulation: Plan Left hip periprosthetic fracture- As noted on x-ray and CT Acetaminophen 650 mg by mouth every 6 hours as needed for mild pain or fever Morgan 5/325, 1 every 6 hours as needed for moderate pain Dilaudid 0.25 mg IV every 3 hours as needed for severe pain Consult to orthopedic surgery Dr. Pappas, who has already been contacted by the ED Patient is aware that there would not likely be surgery needed now He is unlikely to be able to return home at this time, and [facility] can be done in the morning, as he will likely need [facility] to care for his arms and to help him with walking and ADLs Bilateral avulsion of skin of forearms- Will require extensive wound care, consult made Patient did receive Ancef 2 g IV from the ED. Further antibiotics can be prescribed if needed once wound care is assessed in the a.m. Paroxysmal atrial fibrillation/hypertension/CHF- Continue amiodarone 2 mg p.o. twice daily which will be continued tonight. Continue apixaban 2.5 mg p.o. twice daily which will be resumed in the morning. Continue metoprolol succinate 25 mg daily, Acute kidney injury on CKD- Creatinine 2.5 to, with base range 1.7-2.78 Hold lisinopril and torsemide Continue furosemide and potassium chloride History of Present Illness Chief Complaint: The patient reports that he was walking along with his walker, that got away from him, and he fell onto his forearms and left hip area, causing severe skin abrasions/lacerations of forearms bilaterally, and severe left hip pain making it unable for him to walk Primary Care Provider: [facility] The patient is a an 82-year-old male with a past medical history including left total hip arthroplasty, CKD stage IV, mitral regurgitation, ischemic cardiomyopathy, HFrEF, paroxysmal atrial flutter, paroxysmal atrial fibrillation with RVR, PAD, PVCs, hypertension, hyperlipidemia, history of PE on apixaban, CAD, asthma and carotid artery stenosis. Patient presents to the emergency department after a fall as noted above. He was noted to have extensive avulsion of skin and abrasions/lacerations bilateral forearms, and x-ray of left hip and CT of left hip show a closed left periprosthetic fracture. Allergies Allergy/AdvReac Type Severity Reaction Status Date / Time ciprofloxacin Allergy Intermediate Rash Verified 02/09/23 19:37 warfarin Allergy Intermediate hives, rash Verified 02/09/23 19:37 niacin AdvReac Severe LEG Verified 02/09/23 19:37 [From Niaspan WEAKNESS Extended-Release] [id number] Reductase AdvReac Severe muscle Verified 02/09/23 19:37 Inhibitor weakness,pain, [Pgpfocy-Jjt-Bpv Reductase cramps Inhibitor] umeclidinium AdvReac Unknown "NOT Verified 02/09/23 19:37 [From Anoro Ellipta] ALLERGIC,DOES NOTHING FOR ME" vilanterol AdvReac Unknown "NOT Verified 02/09/23 19:37 [From Anoro Ellipta] ALLERGIC, DOES NOTHING FOR ME" Home Medications Medication Instructions Recorded Confirmed Type polyethylene glycol 3350 17 gram 17 g PO BID PRN Constipation 04/03/21 02/09/23 History oral powder packet (Miralax) nitroglycerin 0.4 mg sublingual 0.4 mg sublingual Q5M PRN chest 09/03/22 02/09/23 Rx tablet pain #25 tabs cholecalciferol (vitamin D3) 50 50 mcg PO QAM 11/19/22 02/09/23 History mcg (2,000 unit) capsule ondansetron 4 mg disintegrating 4 mg PO Q8H PRN nausea and 11/19/22 02/09/23 Rx tablet vomiting #30 tabs amiodarone 200 mg tablet 200 mg PO BID #60 tabs 12/04/22 02/09/23 Rx apixaban 2.5 mg tablet (Eliquis) 2.5 mg PO BID #60 tabs 12/04/22 02/09/23 Rx lisinopril 2.5 mg tablet 2.5 mg PO QAM #90 tabs 12/04/22 02/09/23 Rx metoprolol succinate 25 mg 25 mg PO QPM #90 tabs 12/04/22 02/09/23 Rx tablet,extended release 24 hr potassium chloride 10 mEq 20 meq PO QAM #180 tabs 12/04/22 02/09/23 Rx tablet,extended release furosemide 20 mg tablet (Lasix) 40 mg PO QAM #180 tabs 12/23/22 02/09/23 Rx torsemide 10 mg tablet 10 mg PO QAM 02/09/23 02/09/23 History Past Med/Surg History Medical History Acute lower GI bleeding Anemia Anorectal fistula Arthritis Asthma Atrial fibrillation Carotid artery stenosis >70% NEHAL, <50% LICA Chronic kidney disease, stage 3 (moderate) COPD (chronic obstructive pulmonary disease) Coronary artery disease Remote h/o stent to RCA. Stent patent on 2005 cath per cardio. Degenerative arthritis of right knee Diabetes mellitus, type 2 Diastolic congestive heart failure Dyspnea Eczema Erectile dysfunction H/O difficult intubation Glidescope 2011 lap tracie History of anesthesia reaction SOMETIMES COMES OUT SWINGING History of IA (myocardial infarction) TOTAL OF 3 History of pulmonary embolism (02/2011) HX BILATERAL Hyperlipidemia Hypertension Ischemic cardiomyopathy Mitral regurgitation On anticoagulant therapy PAD (peripheral artery disease) (03/14/14) L common iliac angioplasty/stent, stenting of totally occluded R SFA, angiopl asty of occluded RCF 2006. Angioplasty to R SFA in-stent stenosis 2013. PVCs (premature ventricular contractions) Restrictive lung disease Right lower lobe pulmonary nodule Noted on CT 04/03, 12mo f/u recommended. 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 S/P cataract surgery R/L S/P coronary artery stent placement (1995) RCA Status post angioplasty (2013) to R SFA in stent stenosis Status post surgery (12/15/17) placement of seton drain in transsphinteric fistula - 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 AND ALWAYS IS DRAINING Family History Mother Thyroid disease Family history of diabetes mellitus Father Coronary heart disease Emphysema of lung Family history of diabetes mellitus Uncle Family history of colon cancer Denies family history of Colon cancer Ovarian cancer Prostate cancer Myocardial infarction Breast cancer Lung cancer Colorectal cancer Social History Smoking Status: Current some day smoker Tobacco Type: Pipe Cigarettes Per Day: COUPLE TIMES A DAY TO SMOKE PIPE; Second Hand Exposure: No; Do You Dip or Chew Tobacco: No; Tobacco Cessation Education Requested by Patient: No Hx Alcohol Use: No Hx Substance Use: No Preferred Language: Sammarinese Communication Ability: Effective Communication Ability Comment: PHONE INTERVIEW DONE WITH DAUGHTERSHADE PER PT REQUEST Visual Impairment: No Limitations Hearing Ability: Use of Hearing Aid Hotel Clerk Required: No Beliefs That Will Affect Care: None marital status: / Current Living Situation: Alone Current Living Situation Comment: lives alone in apartment current occupational status: retired How many Children do You have: 2 Feels Safe at Home: Yes Safety Concerns: Feels Safe At This Time Childhood Exposure to Second-Hand Smoke: No Diet Comment: regular caffeine: Yes (2-3 cups coffee) during the past year weight has: increased > 10 lbs Dental Care, Regularly: Yes Physical Activity Frequency: 1-2 Times per Week Seatbelt Use: always Sunscreen Use: Yes Assistive Devices: Walker Review of Systems Review of Systems: The patient denies chest pain, palpitations, shortness of breath, dyspnea on exertion, cough, sore throat, fevers, chills, sweats, nausea, vomiting, diarrhea , constipation, abdominal pain, pelvic pain, blood in urine or stool, dysuria, lightheadedness, dizziness, headache, memory loss, loss of consciousness, or night sweats. The review of systems is otherwise negative other than for that already noted above, and at least 10 systems have been reviewed. Physical Exam Physical Exam: The patient is awake, alert and oriented 3, well developed and well nourished, normocephalic and atraumatic, lying in bed and in no acute distress. HEENT--PERRL, EOMI, mucous membranes and oropharynx normal. Neck--supple. No JVD. No bruits. Thyroid normal, trachea midline, no adenopathy. Heart--normal S1 and S2. No murmurs, rubs or gallops. Lungs--clear bilaterally, no respiratory distress, no accessory muscle use. Abdomen--normal bowel sounds and soft. Nontender. Nondistended, no hernias or masses, no organomegaly. Extremities-- No edema. There are good distal pulses b/l. Dermatologic--skin of forearms were wrapped, however, pictures displayed severe avulsion, abrasion and peeling of skin of bilateral forearms Neurologic--limited exam due to left hip fracture Rheumatologic--limited exam due to left hip fracture Psychiatric--normal affect. Results & Data Results & Data Vital Signs (Past 12 Hours) Vital Signs Temp Pulse Pulse Resp BP Pulse Ox O2 Del Method 02/09/23 20:38 36.7 C 70 16 123/78 98 Room Air 02/09/23 18:37 77 02/09/23 18:36 37.6 C H 71 18 97 Room Air Laboratory Results Laboratory Results WBC 11.50 K/ul (4.8-10.8) H 02/09/23 19:05 RBC 4.33 M/uL (4.70-6.10) L 02/09/23 19:05 Hgb 14.0 g/dl (14.0-18.0) 02/09/23 19:05 Hct 41.5 % (42.0-52.0) L 02/09/23 19:05 MCV 95.8 fL (80.0-100.0) 02/09/23 19:05 MCH 32.3 pg (25.0-34.0) 02/09/23 19:05 MCHC 33.7 g/dL (32.0-36.0) 02/09/23 19:05 RDW Std Deviation 52.4 fL (36.4-46.3) H 02/09/23 19:05 RDW Coeff of Anton 14.6 % (11.5-14.5) H 02/09/23 19:05 Plt Count 239 K/uL (130-400) 02/09/23 19:05 MPV 9.7 fL (9.4-12.4) 02/09/23 19:05 Immature Gran % (Auto) 0.6 % 02/09/23 19:05 Neut % (Auto) 77.9 % 02/09/23 19:05 Lymph % (Auto) 9.9 % 02/09/23 19:05 [place] % (Auto) 7.1 % 02/09/23 19:05 Eos % (Auto) 3.7 % 02/09/23 19:05 Baso % (Auto) 0.8 % 02/09/23 19:05 Neut # (Auto) 8.96 K/uL (1.40-6.50) H 02/09/23 19:05 Lymph # (Auto) 1.14 K/uL (1.2-3.4) L 02/09/23 19:05 [place] # (Auto) 0.82 K/uL (0.11-0.59) H 02/09/23 19:05 Eos # (Auto) 0.42 K/uL (0-0.50) 02/09/23 19:05 Baso # (Auto) 0.09 K/uL (0-0.2) 02/09/23 19:05 Immature Gran # (Auto) 0.07 K/uL (0.01-0.20) 02/09/23 19:05 PT 11.5 Seconds (9.0-12.0) 02/09/23 19:05 INR 1.1 (0.9-1.1) 02/09/23 19:05 APTT 27.4 Seconds (21.0-31.0) 02/09/23 19:05 PTT Ratio 1.0 02/09/23 19:05 Sodium 139 mmol/L (136-145) 02/09/23 19:05 Potassium 3.9 mmol/L (3.5-5.1) 02/09/23 19:05 Chloride 107 mmol/L (98-107) 02/09/23 19:05 Carbon Dioxide 24 mmol/L (21-32) 02/09/23 19:05 Anion Gap 8 (3-11) 02/09/23 19:05 BUN 43 mg/dl (6-23) H 02/09/23 19:05 Creatinine 2.52 mg/dl (0.6-1.4) H 02/09/23 19:05 Est Cr Clr Drug Dosing 26.9 ml/min 02/09/23 19:05 Est GFR ( Amer) 26.1 ml/min 02/09/23 19:05 Est GFR (Non-Af Amer) 22.5 ml/min 02/09/23 19:05 BUN/Creatinine Ratio 17.1 (10-20) 02/09/23 19:05 Glucose 162 mg/dl (70-99(Fasting)) H 02/09/23 19:05 Calcium 8.6 mg/dl (8.6-10.3) 02/09/23 19:05 Total Bilirubin 0.8 mg/dl (0.2-1.0) 02/09/23 19:05 AST 14 U/L (13-39) 02/09/23 19:05 ALT 8 U/L (7-52) 02/09/23 19:05 Alkaline Phosphatase 63 U/L (34-104) 02/09/23 19:05 Total Protein 6.5 gm/dl (6.0-8.3) 02/09/23 19:05 Albumin 3.6 gm/dl (3.4-5.0) 02/09/23 19:05 Globulin 2.9 gm/dl (2.5-4.0) 02/09/23 19:05 Albumin/Globulin Ratio 1.2 (0.9-2) 02/09/23 19:05 Urine Color Yellow 02/09/23 21:30 Urine Appearance Clear (Clear) 02/09/23 21:30 Urine pH 5.5 (4.5-7.5) 02/09/23 21:30 Ur Specific [place] 1.014 (1.000-1.030) 02/09/23 21:30 Urine Protein Negative (Negative) 02/09/23:30 Urine Glucose (UA) Negative (Negative) 02/09/23 21:30 Urine Ketones Negative (Negative) 02/09/23 21:30 Urine Blood Negative (Negative) 02/09/23 21:30 Urine Nitrite Negative (Negative) 02/09/23 21:30 Urine Bilirubin Negative (Negative) 02/09/23 21:30 Urine Urobilinogen Negative (Negative) 02/09/23 21:30 Ur Leukocyte Esterase Negative (Negative) 02/09/23 21:30 SARS-CoV-2, RNA, NAAT NEGATIVE (NEGATIVE) 02/09/23 20:09 Impressions Hip X-Ray 02/09/23 18:44 LEFT HIP 2 VIEWS CLINICAL HISTORY: Fall with left hip injury. FINDINGS: AP and crosstable lateral views of the left hip are compared to study dated 06/17/2020. The skeletal structures are osteopenic. A bipolar left hip arthroplasty is in near-anatomic alignment. There is a comminuted periprosthetic intertrochanteric fracture of the left proximal femur. Overlying soft tissue edema is observed. The visualized left hemipelvis appears intact. There is advanced atherosclerotic calcification of the left femoral artery. IMPRESSION: Comminuted periprosthetic intertrochanteric fracture of the left proximal femur. Electronically signed by: Dionte Altman M.D. 02/09/2023 7:[address] 02/09/23 20:55 Exam(s): CT LEFT HIP Without Contrast EXAM: CT Left Lower Extremity Without Intravenous Contrast, Hip CLINICAL HISTORY: Reason for exam: periprosthetic left hip fracture on eliquis. TECHNIQUE: Axial computed tomography images of the left hip without intravenous contrast. CTDI is 34 mGy and DLP is 935.61 mGy-cm. Automated exposure control was utilized for the study. A dose lowering technique was utilized adhering to the principles of ALARA. COMPARISON: No relevant prior studies available. FINDINGS: Bones/joints: Periprosthetic fracture of the LEFT hip arthroplasty femoral stem, which is by approximately 9 mm. Orthopedic surgical evaluation recommended. No dislocation. Soft tissues: Unremarkable. Bladder: Nguyễn catheter terminates in the urinary bladder. IMPRESSION: Periprosthetic fracture of the LEFT hip arthroplasty femoral stem, which is by approximately 9 mm. Orthopedic surgical evaluation recommended. 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 transplanted heart: [place] heart Associated angina: without angina Carotid artery stenosis I65.29 Chronic anticoagulation Z79.01 (11) Hypertension Hypertension type: essential hypertension Qualified Code(s): I10 - Essential (primary) hypertension (12) Hyperlipidemia Hyperlipidemia type: unspecified Qualified Code(s): E78.5 - Hyperlipidemia, unspecified (16) Coronary artery disease Coronary Disease-Associated Artery/Lesion type: [place] artery [place] vs. transplanted heart: [place] heart Associated angina: without angina Qualified Code(s): I25.10 - Atherosclerotic heart disease of [place] coronary artery without angina pectoris
[2023-02-09] MEDS ORDERED: HYDROmorphone INJ 0.5 MG/0.5 ML SYR IV STA (22:05)
[2023-02-09 22:30] LABS: Appearance Urine Clear (Clear); Bilirubin Urine Negative (Negative); Blood Urine Negative (Negative); Color Urine Yellow; Glucose Urine UA Negative (Negative); Ketones Urine Negative (Negative); Leukocyte Esterase Urine Negative (Negative); Nitrite Urine Negative (Negative); Protein Urine Negative (Negative); Specific Gravity Urine 1.014 (1.000-1.030); Urobilinogen Urine Negative (Negative); pH Urine 5.5 (4.5-7.5)
[2023-02-09] MEDS ORDERED: ONDANSETRON 4 MG OD TAB PO PRN (22:50)
[2023-02-09] MEDS ORDERED: NITROGLYCERIN SL 0.4 MG/TAB TAB SL PRN (22:50)
--- NOTE | 2023-02-09 22:59 | CT Scan Report ---
Exam(s): CT LEFT HIP Without Contrast EXAM: CT Left Lower Extremity Without Intravenous Contrast, Hip CLINICAL HISTORY: Reason for exam: periprosthetic left hip fracture on eliquis. TECHNIQUE: Axial computed tomography images of the left hip without intravenous contrast. CTDI is 34 mGy and DLP is 935.61 mGy-cm. Automated exposure control was utilized for the study. A dose lowering technique was utilized adhering to the principles of ALARA. COMPARISON: No relevant prior studies available. FINDINGS: Bones/joints: Periprosthetic fracture of the LEFT hip arthroplasty femoral stem, which is by approximately 9 mm. Orthopedic surgical evaluation recommended. No dislocation. Soft tissues: Unremarkable. Bladder: Nguyễn catheter terminates in the urinary bladder. IMPRESSION: Periprosthetic fracture of the LEFT hip arthroplasty femoral stem, which is by approximately 9 mm. Orthopedic surgical evaluation recommended. Electronically signed by: Gregory Mcgowan MD 02/09/23 22:58 PM
[2023-02-09] MEDS: METOPROLOL SUCC 25MG EXT REL TAB PO SCH (23:28)
[2023-02-09] MEDS: AMIODARONE 200 MG TAB PO SCH (23:28)
[2023-02-10] MEDS: HYDROmorphone INJ 0.5 MG/0.5 ML SYR IV PRN ×2 (02:39→16:22)
[2023-02-10 08:29] LABS: Basophils # (auto) 0.07 K/uL (0-0.2); Basophils % (auto) 0.7 %; Eosinophils # (auto) 0.42 K/uL (0-0.50); Eosinophils % (auto) 4.5 %; Hematocrit (blood only) 39.9 % (42.0-52.0); Hemoglobin 13.5 g/dl (14.0-18.0); Immature Granulocytes # (auto) 0.04 K/uL (0.01-0.20); Immature Granulocytes % (auto) 0.4 %; Lymphocytes # (auto) 1.15 K/uL (1.2-3.4); Lymphocytes % (auto) 12.3 %; Mean Corpuscular Hemoglobin 32.1 pg (25.0-34.0); Mean Corpuscular Hgb Conc 33.8 g/dL (32.0-36.0); Mean Platelet Volume 9.8 fL (9.4-12.4); Monocytes % (auto) 13.9 %; Neutrophils # (auto) 6.38 K/uL (1.40-6.50); Neutrophils % (auto) 68.2 %; Platelet Count 217 K/uL (130-400); RDW Coefficient of Variation 14.6 % (11.5-14.5); RDW Standard Deviation 50.8 fL (36.4-46.3); White Blood Count 9.36 K/ul (4.8-10.8)
[2023-02-10 08:48] LABS: Albumin Level 3.3 gm/dl (3.4-5.0); BUN Creatinine Ratio 19.2 (10-20); Calcium 8.4 mg/dl (8.6-10.3); Creatinine Clr Calc Pharmacy 28.5 ml/min; Est GFR (African American) 29.3 ml/min; Est GFR (Non-African American) 25.3 ml/min; Phosphorus 3.3 mg/dl (2.5-4.9); Potassium 4.4 mmol/L (3.5-5.1)
[2023-02-10] MEDS ORDERED: APIXABAN 2.5 MG TAB PO SCH (09:00)
[2023-02-10] MEDS: FUROSEMIDE 40 MG TAB PO SCH (09:31)
[2023-02-10] MEDS: POTASSIUM CHLORIDE CRTAB 20 MEQ TABCR PO SCH (09:31)
[2023-02-10] MEDS: CHOLECALCIFEROL 1,000 UNITS 25 MCG TAB PO SCH (09:31)
[2023-02-10] MEDS: AMIODARONE 200 MG TAB PO SCH ×2 (09:32→20:14)
[2023-02-10] MEDS: HYDROCODONE/ACETAMOPHEN 5/325MG TAB PO PRN (09:35)
--- NOTE | 2023-02-10 09:39 | Hospitalist Progress Note ---
Date of Service February 10, 2023 Assessment & Plan (1) Anabel-prosthetic fracture around prosthetic hip: Plan: Left hip periprosthetic fracture-noted on x-ray and CT mechanical fall Bilateral avulsion of skin of forearms-require extensive wound care, consult made, did receive Ancef 2 g IV from the ED. no Further antibiotics Consult to orthopedic surgery Dr. 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 twice daily which will be continued tonight. Continue apixaban 2.5 mg p.o. twice daily which will be resumed in the morning. Continue metoprolol succinate 25 mg daily, (5) History of pulmonary embolism: Plan: chronic and stable apixiban chronic anticoagulation, now on hold (6) Diabetes mellitus, type 2: Plan: Diet controlled last A1C was 6 chronic and stable Admission and Anticipated Discharge Date Admission Date: February 09, 2023 Subjective fair but incomplete pain control has not spoken to ortho consult yet apixaban tentatively on hold Physical Exam Physical Exam: cardiac is regular lungs are clear good DP pulses bilaterally has chronic venous stasis Results & Data Results & Data Vital Signs (Past 12 Hours) Vital Signs Temp Pulse Pulse Pulse Resp BP BP 02/10/23 08:05 97.7 F 72 18 124/72 02/09/23 23:00 97.5 F L 71 18 173/80 H 02/09/23 22:10 70 15 02/09/23 22:00 70 21 02/09/23 21:50 70 22 142/96 H 02/09/23 21:40 73 14 02/09/23 21:31 70 21 02/09/23 22:14 98.1 F 70 16 142/96 H Pulse Ox O2 Del Method 02/10/23 08:05 98 Room Air 02/09/23 23:00 99 Room Air 02/09/23 22:10 02/09/23 22:00 98 02/09/23 21:50 98 02/09/23 21:40 99 02/09/23 21:31 99 02/09/23 22:14 100 Room Air Laboratory Results reviewed cbc reviewed chemisty PG Care Time/CCT Total # of Minutes Spent Total Time Spent with Patient: Total time spent is greater than 50% in coordination of care (as documented) at patient's floor/unit and/or counseling patient: Coding Level of Care Code 37574 SUB INP/OBS CARE 235MIN Diagnoses Anabel-prosthetic fracture around prosthetic hip M97.8XXA; Z96.649 Ischemic cardiomyopathy I25.5 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
[2023-02-10] MEDS: oxyCODONE HCL IR 5 MG TAB (IMMEDIATE RELEASE) PO PRN ×2 (13:27→21:53)
--- NOTE | 2023-02-10 14:43 | Electrocardiogram Report ---
Test Reason : Blood Pressure : / mmHG Vent. Rate : 078 BPM Atrial Rate : 072 BPM P-R Int : 000 ms QRS Dur : 212 ms QT Int : 518 ms P-R-T Axes : 000 259 078 degrees QTc Int : 590 ms Ventricular-paced rhythm Biventricular pacemaker detected Abnormal ECG When compared with ECG of 21-JAN-2023 12:07, Electronic ventricular pacemaker now present Confirmed by Nitesh Reyes ([id number]) on 02/10/2023 2:42:48 PM Referred By: REFERRED SELF Confirmed By:Nitesh Reyes
--- NOTE | 2023-02-10 14:51 | Electrocardiogram Report ---
Test Reason : Blood Pressure : / mmHG Vent. Rate : 070 BPM Atrial Rate : 068 BPM P-R Int : 000 ms QRS Dur : 212 ms QT Int : 540 ms P-R-T Axes : 000 -85 081 degrees QTc Int : 583 ms Ventricular-paced rhythm Biventricular pacemaker detected Abnormal ECG When compared with ECG of 09-FEB-2023 18:36, (unconfirmed) Vent. rate has decreased BY 8 BPM Confirmed by Nitesh Reyes ([id number]) on 02/10/2023 2:51:22 PM Referred By: REFERRED SELF Confirmed By:Nitesh Reyes
[2023-02-10] MEDS: METOPROLOL SUCC 25MG EXT REL TAB PO SCH (20:14)
[2023-02-11 07:41] LABS: Basophils # (auto) 0.06 K/uL (0-0.2); Basophils % (auto) 0.6 %; Eosinophils # (auto) 0.36 K/uL (0-0.50); Eosinophils % (auto) 3.4 %; Hematocrit (blood only) 38.9 % (42.0-52.0); Hemoglobin 13.2 g/dl (14.0-18.0); Immature Granulocytes # (auto) 0.04 K/uL (0.01-0.20); Immature Granulocytes % (auto) 0.4 %; Lymphocytes # (auto) 1.16 K/uL (1.2-3.4); Mean Corpuscular Hemoglobin 32.1 pg (25.0-34.0); Mean Corpuscular Hgb Conc 33.9 g/dL (32.0-36.0); Mean Corpuscular Volume 94.6 fL (80.0-100.0); Monocytes # (auto) 1.35 K/uL (0.11-0.59); Monocytes % (auto) 12.8 %; Neutrophils # (auto) 7.59 K/uL (1.40-6.50); Neutrophils % (auto) 71.8 %; Platelet Count 201 K/uL (130-400); RDW Coefficient of Variation 14.6 % (11.5-14.5); RDW Standard Deviation 50.7 fL (36.4-46.3); Red Blood Count 4.11 M/uL (4.70-6.10); White Blood Count 10.56 K/ul (4.8-10.8)
[2023-02-11 08:08] LABS: Albumin Level 3.2 gm/dl (3.4-5.0); BUN Creatinine Ratio 20.2 (10-20); Calcium 8.8 mg/dl (8.6-10.3); Creatinine Clr Calc Pharmacy 31.4 ml/min; Est GFR (African American) 32.9 ml/min; Est GFR (Non-African American) 28.4 ml/min; Phosphorus 3.8 mg/dl (2.5-4.9); Potassium 4.3 mmol/L (3.5-5.1)
[2023-02-11] MEDS: HYDROCODONE/ACETAMOPHEN 5/325MG TAB PO PRN ×2 (08:43→23:01)
[2023-02-11] MEDS: AMIODARONE 200 MG TAB PO SCH ×2 (08:44→21:20)
[2023-02-11] MEDS: CHOLECALCIFEROL 1,000 UNITS 25 MCG TAB PO SCH (08:45)
[2023-02-11] MEDS: FUROSEMIDE 40 MG TAB PO SCH (08:46)
[2023-02-11] MEDS: POTASSIUM CHLORIDE CRTAB 20 MEQ TABCR PO SCH (08:46)
--- NOTE | 2023-02-11 14:05 | Orthopedic Consultation ---
Date of Service February 11, 2023 Assessment & Plan (1) Anabel-prosthetic fracture around prosthetic hip: I discussed the diagnosis and treatment options with him at bedside. I went over the x-rays with him at bedside. I also talked to the daughter by speaker phone. I recommended nonoperative treatment for his hip. The fracture is nondisplaced. Adding surgical fixation would not help. Unfortunately, this can take about 6 weeks nonweightbearing for this to heal. It is gone to be fairly sore for the first 2 to 4 weeks and then will get better. He is orthopedically stable for discharge to a rehab facility. He will follow-up with orthopedics in 2 weeks for repeat x-ray. Full orthopedic discharge instructions were placed in the discharge summary. History of Present Illness Reason for Consultation: Left periprosthetic hip fracture. Requesting Physician: . Attending Physician: Erwin Mckay MD Favian is a pleasant 82-year-old male who lives alone in the [place] area. He was walking with a wheeled walker when the walker got away from him. He fell on his forearms and his left hip. He had multiple abrasions on his forearms and a left periprosthetic hip fracture. He was admitted to the medical service. Orthopedics was consulted to evaluate and treat.. Allergies Allergy/AdvReac Type Severity Reaction Status Date / Time ciprofloxacin Allergy Intermediate Rash Verified 02/09/23 19:37 warfarin Allergy Intermediate hives, rash Verified 02/09/23 19:37 niacin AdvReac Severe LEG Verified 02/09/23 19:37 [From Niaspan WEAKNESS Extended-Release] Cjmnlkx-GHL-QjU Reductase AdvReac Severe muscle Verified 02/09/23 19:37 Inhibitor weakness,pain, [Quvoujs-Kxy-Ogy Reductase cramps Inhibitor] umeclidinium AdvReac Unknown "NOT Verified 02/09/23 19:37 [From Anoro Ellipta] ALLERGIC,DOES NOTHING FOR ME" vilanterol AdvReac Unknown "NOT Verified 02/09/23 19:37 [From Anoro Ellipta] ALLERGIC, DOES NOTHING FOR ME" Home Medications Medication Instructions Recorded Confirmed Type polyethylene glycol 3350 17 gram 17 g PO BID PRN Constipation 04/03/21 02/09/23 History oral powder packet (Miralax) nitroglycerin 0.4 mg sublingual 0.4 mg sublingual Q5M PRN chest 09/03/22 02/09/23 Rx tablet pain #25 tabs cholecalciferol (vitamin D3) 50 50 mcg PO QAM 11/19/22 02/09/23 History mcg (2,000 unit) capsule ondansetron 4 mg disintegrating 4 mg PO Q8H PRN nausea and 11/19/22 02/09/23 Rx tablet vomiting #30 tabs amiodarone 200 mg tablet 200 mg PO BID #60 tabs 12/04/22 02/09/23 Rx apixaban 2.5 mg tablet (Eliquis) 2.5 mg PO BID #60 tabs 12/04/22 02/09/23 Rx lisinopril 2.5 mg tablet 2.5 mg PO QAM #90 tabs 12/04/22 02/09/23 Rx metoprolol succinate 25 mg 25 mg PO QPM #90 tabs 12/04/22 02/09/23 Rx tablet,extended release 24 hr potassium chloride 10 mEq 20 meq PO QAM #180 tabs 12/04/22 02/09/23 Rx tablet,extended release furosemide 20 mg tablet (Lasix) 40 mg PO QAM #180 tabs 12/23/22 02/09/23 Rx torsemide 10 mg tablet 10 mg PO QAM 02/09/23 02/09/23 History Past Med/Surg History Medical History Acute lower GI bleeding Anemia Anorectal fistula Arthritis Asthma Atrial fibrillation Carotid artery stenosis >70% NEHAL, <50% LICA Chronic kidney disease, stage 3 (moderate) COPD (chronic obstructive pulmonary disease) Coronary artery disease Remote h/o stent to RCA. Stent patent on 2005 cath per cardio. Degenerative arthritis of right knee Diabetes mellitus, type 2 Diastolic congestive heart failure Dyspnea Eczema Erectile dysfunction H/O difficult intubation Glidescope 2011 lap tracie History of anesthesia reaction SOMETIMES COMES OUT SWINGING History of TX (myocardial infarction) TOTAL OF 3 History of pulmonary embolism (02/2011) HX BILATERAL Hyperlipidemia Hypertension Ischemic cardiomyopathy Mitral regurgitation On anticoagulant therapy PAD (peripheral artery disease) (03/14/14) L common iliac angioplasty/stent, stenting of totally occluded R SFA, angioplasty of occluded RCF 2006. Angioplasty to R SFA in-stent stenosis 2013. PVCs (premature ventricular contractions) Restrictive lung disease Right lower lobe pulmonary nodule Noted on CT 04/03, 12mo f/u recommended. 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 Subclavian artery stenosis Vitamin D insufficiency Surgical History H/O inguinal hernia repair H/O total hip arthroplasty R/L H/O total knee replacement (09/2017) RIGHT History of cardiac cath MULTIPLE - TOTAL OF 16 STENTS - UNSURE WHEN MOST RECENT History of CEA (carotid endarterectomy) (06/01/18) R CEA w/ patch angioplasty History of hydrocelectomy History of incision and drainage (10/23/17) ischiorectal abscess Hx laparoscopic cholecystectomy S/P arterial stent (08/2006) R SFA EVP OPERATIONS and stenting S/P cataract surgery R/L S/P coronary artery stent placement (1995) RCA Status post angioplasty (2013) to R SFA in stent stenosis Status post surgery (12/15/17) placement of seton drain in transsphinteric fistula - 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 AND ALWAYS IS DRAINING Family History Mother Thyroid disease Family history of diabetes mellitus Father Coronary heart disease Emphysema of lung Family history of diabetes mellitus Uncle Family history of colon cancer Denies family history of Colon cancer Ovarian cancer Prostate cancer Myocardial infarction Breast cancer Lung cancer Colorectal cancer Social History Smoking Status: Current some day smoker Tobacco Type: Pipe Cigarettes Per Day: COUPLE TIMES A DAY TO SMOKE PIPE; Second Hand Exposure: No; Do You Dip or Chew Tobacco: No; Hx Alcohol Use: No Hx Substance Use: No Preferred Language: Citizen Of [place] Communication Ability: Effective Communication Ability Comment: PHONE INTERVIEW DONE WITH DAUGHTERSHADE PER PT REQUEST Visual Impairment: No Limitations Hearing Ability: Use of Hearing Aid Marketing Program Manager Required: No Beliefs That Will Affect Care: None marital status: / Current Living Situation: Alone Current Living Situation Comment: lives alone in apartment current occupational status: retired How many Children do You have: 2 Feels Safe at Home: Yes Childhood Exposure to Second-Hand Smoke: No Diet Comment: regular caffeine: Yes (2-3 cups coffee) during the past year weight has: increased > 10 lbs Dental Care, Regularly: Yes Physical Activity Frequency: 1-2 Times per Week Seatbelt Use: always Sunscreen Use: Yes Assistive Devices: Cane and Walker Review of Systems All systems reviewed & are unremarkable except as noted in HPI & below. Physical Exam On physical examination of left hip, he has pain with range of motion. He has pain with logroll. There are no abrasions, lesions, or lacerations of the skin around the hip. He has multiple bandages on his forearms.. Constitutional WD/WN, vitals as above Eyes PERRL, conjunctivae normal, anicteric sclerae ENMT external ear and nose normal, oropharynx normal Neck trachea midline, no thyromegaly Respiratory normal respiratory effort, lungs clear to auscultation Cardiovascular RRR, no murmur, no edema Gastrointestinal (Abdomen) normal bowel sounds, soft, nontender, no hepatosplenomegaly Skin no rashes, warm and dry Psychiatric A+Ox3, euthymic affect Results & Data Results & Data Laboratory Results . Diagnostic Findings X-rays of the left hip do show a nondisplaced proximal femoral periprosthetic hip fracture.. PG Care Time/CCT Total # of Minutes Spent Total Time Spent with Patient: Total time spent is greater than 50% in coordination of care (as documented) at patient's floor/unit and/or counseling patient: Coding Level of Care Code 05327 IN/OBS CONSULT LVL 4,60M Diagnoses Anabel-prosthetic fracture around prosthetic hip M97.8XXA; Z96.649
--- NOTE | 2023-02-11 19:07 | Hospitalist Progress Note ---
Date of Service February 11, 2023 Assessment & Plan (1) Anabel-prosthetic fracture around prosthetic hip: Plan: Left hip periprosthetic fracture-noted on x-ray and CT mechanical fall Bilateral avulsion of skin of forearms-require extensive wound care, consult made, did receive Ancef 2 g IV from the ED. 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 twice daily which will be continued tonight. Continue apixaban 2.5 mg p.o. twice daily which will be resumed in the morning. Continue metoprolol succinate 25 mg daily, (5) History of pulmonary embolism: Plan: chronic and stable apixiban chronic anticoagulation, now on hold (6) Diabetes mellitus, type 2: Plan: Diet controlled last A1C was 6 chronic and stable Admission and Anticipated Discharge Date Admission Date: February 09, 2023 Subjective fair but incomplete pain control ortho feels non operative approach 6 weeks non weight bearing apixaban restarted 02/11/23 Physical Exam Physical Exam: cardiac is regular lungs are clear good DP pulses bilaterally has chronic venous stasis Results & Data Results & Data Vital Signs (Past 12 Hours) Vital Signs Temp Pulse Resp BP Pulse Ox O2 Del Method 02/11/23 15:18 97.7 F 70 18 128/68 96 Room Air 02/11/23 08:47 Room Air Laboratory Results review cbc review chemistry PG Care Time/CCT Total # of Minutes Spent Total Time Spent with Patient: Total time spent is greater than 50% in coordination of care (as documented) at patient's floor/unit and/or counseling patient: Coding Level of Care Code 41119 SUB INP/OBS CARE 2/35MIN Diagnoses Anabel-prosthetic fracture around prosthetic hip M97.8XXA; Z96.649 Ischemic cardiomyopathy I25.5 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
[2023-02-11] MEDS: APIXABAN 2.5 MG TAB PO SCH (21:21)
[2023-02-11] MEDS: METOPROLOL SUCC 25MG EXT REL TAB PO SCH (21:21)
[2023-02-12 06:32] LABS: Basophils # (auto) 0.07 K/uL (0-0.2); Basophils % (auto) 0.6 %; Eosinophils # (auto) 0.27 K/uL (0-0.50); Eosinophils % (auto) 2.5 %; Hematocrit (blood only) 39.1 % (42.0-52.0); Hemoglobin 13.2 g/dl (14.0-18.0); Immature Granulocytes # (auto) 0.03 K/uL (0.01-0.20); Immature Granulocytes % (auto) 0.3 %; Lymphocytes # (auto) 1.05 K/uL (1.2-3.4); Lymphocytes % (auto) 9.5 %; Mean Corpuscular Hemoglobin 32.2 pg (25.0-34.0); Mean Corpuscular Hgb Conc 33.8 g/dL (32.0-36.0); Mean Corpuscular Volume 95.4 fL (80.0-100.0); Mean Platelet Volume 10.1 fL (9.4-12.4); Monocytes % (auto) 11.8 %; Neutrophils # (auto) 8.29 K/uL (1.40-6.50); Neutrophils % (auto) 75.3 %; Platelet Count 176 K/uL (130-400); RDW Coefficient of Variation 14.3 % (11.5-14.5); RDW Standard Deviation 50.2 fL (36.4-46.3); White Blood Count 11.01 K/ul (4.8-10.8)
[2023-02-12 07:36] LABS: Albumin Level 3.2 gm/dl (3.4-5.0); Anion Gap 6 (3-11); BUN Creatinine Ratio 20.8 (10-20); Blood Urea Nitrogen 42 mg/dl (6-23); Calcium 8.7 mg/dl (8.6-10.3); Carbon Dioxide 23 mmol/L (21-32); Chloride 104 mmol/L (98-107); Creatinine Clr Calc Pharmacy 32.4 ml/min; Est GFR (African American) 34.1 ml/min; Est GFR (Non-African American) 29.4 ml/min; Glucose 97 mg/dl (70-99(Fasting)); Magnesium 1.9 mg/dl (1.7-2.4); Phosphorus 3.5 mg/dl (2.5-4.9); Sodium 133 mmol/L (136-145)
[2023-02-12] MEDS: FUROSEMIDE 40 MG TAB PO SCH (07:59)
[2023-02-12] MEDS: POTASSIUM CHLORIDE CRTAB 20 MEQ TABCR PO SCH (07:59)
[2023-02-12] MEDS: CHOLECALCIFEROL 1,000 UNITS 25 MCG TAB PO SCH (07:59)
[2023-02-12] MEDS: APIXABAN 2.5 MG TAB PO SCH ×2 (07:59→20:54)
[2023-02-12] MEDS: AMIODARONE 200 MG TAB PO SCH ×2 (07:59→20:54)
[2023-02-12] MEDS: HYDROCODONE/ACETAMOPHEN 5/325MG TAB PO PRN (09:53)
[2023-02-12] MEDS: POLYETHYLENE (MIRALAX) 17 GM PACK PO PRN (11:20)
[2023-02-12] MEDS: FLUTICASONE/VILANTEROL 100/25MCG 14 PUFFS/INHALER INH SCH (11:20)
[2023-02-12] MEDS ORDERED: DOCUSATE SODIUM/SENNA 50/8.6MG TAB PO ONE ×2 (16:00→19:00)
--- NOTE | 2023-02-12 17:14 | Hospitalist Progress Note ---
Date of Service February 12, 2023 Assessment & Plan (1) Anabel-prosthetic fracture around prosthetic hip: Plan: Left hip periprosthetic fracture-noted on x-ray and CT mechanical fall Bilateral avulsion of skin of forearms-require extensive wound care, consult made, did receive Ancef 2 g IV from the ED. 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 twice daily which will be continued tonight. Continue apixaban 2.5 mg p.o. twice daily which will be resumed in the morning. Continue metoprolol succinate 25 mg daily, (5) History of pulmonary embolism: Plan: chronic and stable apixiban chronic anticoagulation, now on hold (6) Diabetes mellitus, type 2: Plan: Diet controlled last A1C was 6 chronic and stable Admission and Anticipated Discharge Date Admission Date: February 09, 2023 Subjective fair but incomplete pain control ortho feels non operative approach 6 weeks non weight bearing apixaban restarted 02/11/23 pt with constipation as cannot have good bowel movement on bedside commode Physical Exam Physical Exam: cardiac is regular lungs are clear abdomen is soft and non tender good DP pulses bilaterally has chronic venous stasis Results & Data Results & Data Vital Signs (Past 12 Hours) Vital Signs Temp Pulse Resp BP Pulse Ox Pulse Ox O2 Del Method 02/12/23 15:37 97.5 F L 73 16 129/71 93 Room Air 02/12/23 11:15 94 02/12/23 11:11 94 02/12/23 08:00 Room Air 02/12/23 08:12 97.7 F 69 16 123/68 98 Room Air O2 Flow Rate 02/12/23 15:37 02/12/23 11:15 0 02/12/23 11:11 02/12/23 08:00 02/12/23 08:12 PG Care Time/CCT Total # of Minutes Spent Total Time Spent with Patient: Total time spent is greater than 50% in coordination of care (as documented) at patient's floor/unit and/or counseling patient: Coding Level of Care Code 04207 SUB INP/OBS CARE 2/35MIN Diagnoses Anabel-prosthetic fracture around prosthetic hip M97.8XXA; Z96.649 Ischemic cardiomyopathy I25.5 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
[2023-02-12] MEDS: METOPROLOL SUCC 25MG EXT REL TAB PO SCH (20:53)
[2023-02-13] MEDS: ACETAMINOPHEN 325 MG TAB PO PRN (05:54)
[2023-02-13] MEDS: POLYETHYLENE (MIRALAX) 17 GM PACK PO PRN (08:03)
--- NOTE | 2023-02-13 08:25 | XRay Report ---
[facility] CLINICAL HISTORY: Evaluate for constipation. COMPARISON STUDY: CT of the abdomen and pelvis July 11, 2018 and [facility] June 17, 2020. FINDINGS: Nguyễn catheter is in place. There are bilateral hip arthroplasties, partially visualized pa cer/AICD leads and cholecystectomy clips. The bowel gas pattern is normal. There is a rlfe-ut-hyhzzce e amount stool within the colon and rectum. Extensive vascular calcification is incidentally noted. IMPRESSION: 1. No evidence for a bowel obstruction. 2. Bjgf-cm-dnehzgtu amount of stool within the colon and rectum. ACT 112: Negative or not required by law. Electronically signed by: Prashanth Osorio M.D. 02/13/2023 8:23 AM
[2023-02-13] MEDS: CHOLECALCIFEROL 1,000 UNITS 25 MCG TAB PO SCH (08:34)
[2023-02-13] MEDS: APIXABAN 2.5 MG TAB PO SCH ×2 (08:34→20:00)
[2023-02-13] MEDS: POTASSIUM CHLORIDE CRTAB 20 MEQ TABCR PO SCH (08:34)
[2023-02-13] MEDS: AMIODARONE 200 MG TAB PO SCH ×2 (08:34→20:00)
[2023-02-13] MEDS: FLUTICASONE/VILANTEROL 100/25MCG 14 PUFFS/INHALER INH SCH (08:34)
[2023-02-13] MEDS: FUROSEMIDE 40 MG TAB PO SCH (08:34)
[2023-02-13] MEDS: HYDROCODONE/ACETAMOPHEN 5/325MG TAB PO PRN (11:07)
[2023-02-13] MEDS: HYDROmorphone INJ 0.5 MG/0.5 ML SYR IV PRN (12:16)
[2023-02-13] MEDS ORDERED: SOD PHOSPHATE/SOD BIPHOSPHATE ENEMA 132 ML BTL PR STA (12:27)
[2023-02-13] MEDS: POLYETHYLENE (MIRALAX) 17 GM PACK PO SCH ×3 (12:41→20:02)
--- NOTE | 2023-02-13 14:25 | Hospitalist Progress Note ---
Date of Service February 13, 2023 Assessment & Plan (1) Anabel-prosthetic fracture around prosthetic hip: Plan: Left hip periprosthetic fracture-noted on x-ray and CT mechanical fall Bilateral avulsion of skin of forearms-require extensive wound care, consult made, did receive Ancef 2 g IV from the ED. 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 twice daily which will be continued tonight. Continue apixaban 2.5 mg p.o. twice daily Continue metoprolol succinate 25 mg daily (5) History of pulmonary embolism: Plan: chronic and stable apixiban chronic anticoagulation, now on hold (6) Diabetes mellitus, type 2: Plan: Diet controlled last A1C was 6 chronic and stable Admission and Anticipated Discharge Date Admission Date: February 09, 2023 Subjective fair but still significant constipaiton that is impacted by painful moveing and not being able to sit on toilet ortho feels non operative approach 6 weeks non weight bearing apixaban restarted 02/11/23 Physical Exam Physical Exam: cardiac is regular lungs are clear abdomen is soft and uncomfortable to exam has chronic venous stasis skin changes to LE Results & Data Results & Data Vital Signs (Past 12 Hours) Vital Signs Temp Pulse Resp BP Pulse Ox O2 Del Method 02/13/23 08:00 Room Air 02/13/23 08:09 97.5 F L 70 16 113/73 97 Room Air PG Care Time/CCT Total # of Minutes Spent Total Time Spent with Patient: Total time spent is greater than 50% in coordination of care (as documented) at patient's floor/unit and/or counseling patient: Coding Level of Care Code 23308 SUB INP/OBS CARE 2/35MIN Diagnoses Anabel-prosthetic fracture around prosthetic hip M97.8XXA; Z96.649 Ischemic cardiomyopathy I25.5 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
[2023-02-13] MEDS: METOPROLOL SUCC 25MG EXT REL TAB PO SCH (20:00)
[2023-02-14] MEDS: POLYETHYLENE (MIRALAX) 17 GM PACK PO SCH (01:16)
[2023-02-14] MEDS: FLUTICASONE/VILANTEROL 100/25MCG 14 PUFFS/INHALER INH SCH (08:27)
[2023-02-14] MEDS: POTASSIUM CHLORIDE CRTAB 20 MEQ TABCR PO SCH (08:28)
[2023-02-14] MEDS: APIXABAN 2.5 MG TAB PO SCH ×2 (08:28→19:55)
[2023-02-14] MEDS: FUROSEMIDE 40 MG TAB PO SCH (08:28)
[2023-02-14] MEDS: CHOLECALCIFEROL 1,000 UNITS 25 MCG TAB PO SCH (08:28)
[2023-02-14] MEDS: AMIODARONE 200 MG TAB PO SCH ×2 (08:29→19:55)
[2023-02-14] MEDS ORDERED: POLYETHYLENE (MIRALAX) 17 GM PACK PO PRN (08:56)
[2023-02-14] MEDS ORDERED: bisacodyL 10 MG SUPP PR STA (08:57)
--- NOTE | 2023-02-14 13:42 | Hospitalist Progress Note ---
Date of Service February 14, 2023 Assessment & Plan (1) Anabel-prosthetic fracture around prosthetic hip: Plan: Left hip periprosthetic fracture-noted on x-ray and CT mechanical fall Bilateral avulsion of skin of forearms-require extensive wound care, consult made, did receive Ancef 2 g IV from the ED. 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 twice daily which will be continued tonight. Continue apixaban 2.5 mg p.o. twice daily Continue metoprolol succinate 25 mg daily (5) History of pulmonary embolism: Plan: chronic and stable apixiban chronic anticoagulation, now on hold (6) Diabetes mellitus, type 2: Plan: Diet controlled last A1C was 6 chronic and stable Admission and Anticipated Discharge Date Admission Date: February 09, 2023 Subjective Still significant constipation that is impacted by painful moving and not being able to sit on toilet is on miralax high dose scheduled and giving Relistor sc ortho feels non operative approach 6 weeks non weight bearing apixaban restarted 02/11/23 Physical Exam Physical Exam: cardiac is regular lungs are clear abdomen is soft and uncomfortable to exam has chronic venous stasis skin changes to LE Results & Data Results & Data Vital Signs (Past 12 Hours) Vital Signs Temp Pulse Resp BP Pulse Ox O2 Del Method 02/14/23 09:50 Room Air 02/14/23 08:07 98.2 F 70 16 124/70 97 Room Air PG Care Time/CCT Total # of Minutes Spent Total Time Spent with Patient: Total time spent is greater than 50% in coordination of care (as documented) at patient's floor/unit and/or counseling patient: Coding Level of Care Code 22504 SUB INP/OBS CARE 2MIN Diagnoses Anabel-prosthetic fracture around prosthetic hip M97.8XXA; Z96.649 Ischemic cardiomyopathy I25.5 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
[2023-02-14] MEDS ORDERED: METHYLNALTREXONE BROMIDE 12 MG/0.6 ML VIAL SQ SCH (14:00)
[2023-02-14] MEDS ORDERED: METHYLNALTREXONE BROMIDE 12 MG/0.6 ML VIAL SQ ONE (14:15)
[2023-02-14] MEDS: ACETAMINOPHEN 325 MG TAB PO PRN ×2 (15:29→21:48)
[2023-02-14] MEDS: METOPROLOL SUCC 25MG EXT REL TAB PO SCH (19:55)
[2023-02-15] MEDS: CHOLECALCIFEROL 1,000 UNITS 25 MCG TAB PO SCH (08:11)
[2023-02-15] MEDS: APIXABAN 2.5 MG TAB PO SCH (08:11)
[2023-02-15] MEDS: FLUTICASONE/VILANTEROL 100/25MCG 14 PUFFS/INHALER INH SCH (08:11)
[2023-02-15] MEDS: AMIODARONE 200 MG TAB PO SCH (08:11)
[2023-02-15] MEDS: POTASSIUM CHLORIDE CRTAB 20 MEQ TABCR PO SCH (08:11)
[2023-02-15] MEDS: FUROSEMIDE 40 MG TAB PO SCH (08:11)
[2023-02-15] MEDS ORDERED: SENNOSIDES 8.8 MG/5 ML UDC PO ONE (08:28)
[2023-02-15] MEDS: ACETAMINOPHEN 325 MG TAB PO PRN (13:13)
--- NOTE | 2023-02-15 17:00 | Discharge Summary ---
Date of Service February 15, 2023 Admission HPI Per Admitting Provider The patient is a an 82-year-old male with a past medical history including left total hip arthroplasty, CKD stage IV, mitral regurgitation, ischemic cardiomyopathy, HFrEF, paroxysmal atrial flutter, paroxysmal atrial fibrillation with RVR, PAD, PVCs, hypertension, hyperlipidemia, history of PE on apixaban, CAD, asthma and carotid artery stenosis. Patient presents to the emergency department after a fall as noted above. He was noted to have extensive avulsion of skin and abrasions/lacerations bilateral forearms, and x-ray of left hip and CT of left hip show a closed left periprosthetic fracture. Principal Diagnosis periprosthetic hip fracture constipation Discharge Exam pt is in mild distress from his fracture abd is soft and has resolution of nausea Discharge Data Allergies Allergy/AdvReac Type Severity Reaction Status Date / Time ciprofloxacin Allergy Intermediate Rash Verified 02/09/23 19:37 warfarin Allergy Intermediate hives, rash Verified 02/09/23 19:37 niacin AdvReac Severe LEG Verified 02/09/23 19:37 [From Niaspan WEAKNESS Extended-Release] [id number] Reductase AdvReac Severe muscle Verified 02/09/23 19:37 Inhibitor weakness,pain, [Zcvefvc-Nmy-Lmz Reductase cramps Inhibitor] umeclidinium AdvReac Unknown "NOT Verified 02/09/23 19:37 [From Anoro Ellipta] ALLERGIC,DOES NOTHING FOR ME" vilanterol AdvReac Unknown "NOT Verified 02/09/23 19:37 [From Anoro Ellipta] ALLERGIC, DOES NOTHING FOR ME" Consultations 02/09/23 20:28 ED Decision to Admit Stat 02/10/23 04:47 Consult Orthopedic Surgery Routine 02/11/23 10:04 Consult Orthopedic Surgery Routine Ordered Studies 02/09/23 20:55 CT hip LT wo con Stat Hospital Course (1) Anabel-prosthetic fracture around prosthetic hip: Left hip periprosthetic fracture-noted on x-ray and CT mechanical fall Bilateral avulsion of skin of forearms-require extensive wound care, consult made, did receive Ancef 2 g IV from the ED. 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 twice daily which will be continued tonight. Continue apixaban 2.5 mg p.o. twice daily Continue metoprolol succinate 25 mg daily (5) History of pulmonary embolism: chronic and stable apixiban chronic anticoagulation, now on hold (6) Diabetes mellitus, type 2: Diet controlled last A1C was 6 chronic and stable Plan will need wound care at snf Total Time Total Time Spent Total Time Spent (In Minutes): it required greater than 30 minutes to prepare this patient for discharge Discharge Plan Discharge Items Patient Disposition: Transfer Nursing Home Fac Reason For Visit: PERIPROSTHETIC LEFT HIP FRACTURE Discharge Diagnosis: periprostatic hip fracture, non surgical treatment constipation Activity: Per Instructions section Non-emergency contact: Primary Care Provider Call non-emergency contact if: your symptoms worsen Follow-up/Referrals: [facility] [Primary Care Provider] - Diet: Carb Consistent or DM2 Addtl Attending Provider Instructions: please keep eye on pain control and bowel habits 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 Rickey Ma with [facility] orthopedics Nonweightbearing on the left leg for 6 weeks. Follow-up with orthopedics in 2 weeks for repeat x-rays to ensure there is been no further displacement of the fracture. Please call the office to set up an appointment for a time that works for you. [facility] [phone] Pending Studies at Discharge: No Stand-Alone Forms: My New [facility] Skilled Items Patient informed of condition?: Yes DNR: No Discharge Level of Care: Skilled Communicable Disease: No Discharge Prognosis: Stable Lines: None Urinary Catheter: No Medications and DC Order Prescriptions: New fluticasone furoate-vilanterol [Breo Ellipta] 100-25 mcg/dose Blister With Device 1 ea inhalation DAILY Qty: 60 0RF oxycodone 5 mg Tablet 5 mg PO Q6H PRN (Reason: pain) Qty: 10 0RF Continued potassium chloride 10 mEq tablet extended release 20 meq PO QAM Qty: 180 3RF metoprolol succinate 25 mg tablet extended release 24 hr 25 mg PO QPM Qty: 90 3RF lisinopril 2.5 mg tablet 2.5 mg PO QAM Qty: 90 3RF Eliquis 2.5 mg tablet 2.5 mg PO BID Qty: 60 2RF amiodarone 200 mg tablet 200 mg PO BID Qty: 60 3RF nitroglycerin 0.4 mg tablet, sublingual 0.4 mg sublingual Q5M PRN (Reason: chest pain) Qty: 25 3RF Rx Instructions: PER PT "NEVER GOT THIS MED, ASKED ABOUT IT, NEVER GOT IT".do not exceed 3 doses per episode furosemide [Lasix] 20 mg tablet 40 mg PO QAM Qty: 180 2RF polyethylene glycol 3350 [Miralax] 17 gram powder in packet 17 g PO BID PRN (Reason: Constipation) cholecalciferol (vitamin D3) 50 mcg (2,000 unit) capsule 50 mcg PO QAM ondansetron 4 mg tablet,disintegrating 4 mg PO Q8H PRN (Reason: nausea and vomiting) Qty: 30 0RF Discontinued torsemide 10 mg tablet 10 mg PO QAM Discharge Orders: Discharge Order (Routine); Ordered 02/15/23 Ordered By: Erwin Mckay Admission Data Admit Date/Time: 02/09/23 21:07 Attending Provider: Erwin Mckay Admit Provider: Malik Nevarez Primary Care Provider: [facility] Other Providers: Malik Nevarez ; Ananth Pappas ; Erika Quinn ; Kristian Leblanc Other Interventions: Discharge Summary Assessment (RN) Last Done: 02/15/23 12:13 Coding Level of Care Code 32057 INP/OBS DISCH >30 MIN Diagnoses Anabel-prosthetic fracture around prosthetic hip M97.8XXA; Z96.649 Ischemic cardiomyopathy I25.5 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
== END 2023-02-15 13:23 | DRG 536 ==
LOC: ED 18:28 → SUATTDRO 21:07 → 3N 21:07

== ENCOUNTER 2023-03-16 18:06 | Inpatient (IN) ==
[2023-03-16] MEDS ORDERED: PIPERACILLIN/TAZOBACTAM 4.5 GM/120 ML BAG IV ONE (18:33)
[2023-03-16 18:39] LABS: Basophils # (auto) 0.07 K/uL (0-0.2); Basophils % (auto) 0.6 %; Eosinophils # (auto) 0.26 K/uL (0-0.50); Eosinophils % (auto) 2.3 %; Hematocrit (blood only) 43.6 % (42.0-52.0); Hemoglobin 14.5 g/dl (14.0-18.0); Immature Granulocytes # (auto) 0.05 K/uL (0.01-0.20); Immature Granulocytes % (auto) 0.4 %; Lymphocytes # (auto) 0.72 K/uL (1.2-3.4); Lymphocytes % (auto) 6.3 %; Mean Corpuscular Hgb Conc 33.3 g/dL (32.0-36.0); Mean Corpuscular Volume 96.2 fL (80.0-100.0); Mean Platelet Volume 9.4 fL (9.4-12.4); Monocytes # (auto) 1.35 K/uL (0.11-0.59); Monocytes % (auto) 11.8 %; Neutrophils # (auto) 8.95 K/uL (1.40-6.50); Neutrophils % (auto) 78.6 %; Platelet Count 259 K/uL (130-400); RDW Coefficient of Variation 15.4 % (11.5-14.5); RDW Standard Deviation 54.5 fL (36.4-46.3); Red Blood Count 4.53 M/uL (4.70-6.10)
[2023-03-16 18:58] LABS: Albumin Level 3.5 gm/dl (3.4-5.0); BUN Creatinine Ratio 15.6 (10-20); Bilirubin,Total 1.3 mg/dl (0.2-1.0); Calcium 8.7 mg/dl (8.6-10.3); Est GFR (African American) 23.5 ml/min; Est GFR (Non-African American) 20.3 ml/min; Globulin 3.6 gm/dl (2.5-4.0); Magnesium 2.1 mg/dl (1.7-2.4); Total Protein 7.1 gm/dl (6.0-8.3)
[2023-03-16 19:09] LABS: INR 1.2 (0.9-1.1); Prothrombin Time 12.9 Seconds (9.0-12.0)
[2023-03-16 19:20] LABS: Thyroid Stimulating Hormone 7.762 uIu/ml (0.300-4.500)
--- NOTE | 2023-03-16 19:34 | Emergency Department Note ---
Impression & Plan Hallucinations, Anabel-prosthetic fracture around prosthetic hip, Acute UTI, Chronic indwelling Nguyễn catheter ED Provider Note Provider: Brandon Adorno MD DATE OF SERVICE: 03/16/2023 CHIEF COMPLAINT: Hallucination HISTORY OF PRESENT ILLNESS: Patient is a 82-year-old gentleman past medical his tory including CKD, CHF, atrial fibs/flutter, diabetes, COPD, and recent left hip fracture treated nonoperatively presenting here from [facility]. Been there for several weeks. According to daughter who is present patient been having hallucinations worsening over the last several weeks. Did have a fall on Wednesday and seen at [facility]. Reportedly had a UTI given a dose of Rocephin and started on Keflex. Had some wounds to the arms at night as well as a cut on his left pinky toe that was sutured. Daughter states over the patient still continues to have significant hallucinations. Seeing brother and seeing. Construction things around the room at times. Patient is been calling the police from his room as well due to these hallucinations. No significant history of this. No report of any sedation given. Patient himself states he feels like he is having some loose Nations but cannot clear delineate these. Denies significant pain at this time. Nguyễn catheter is in place given his hip issue and this was changed on Wednesday at the outside hospital. Evidently received a call today that the patient's urine culture grew out some different bacteria and the need to switch to ampicillin. PAST MEDICAL HISTORY: As noted above MEDICATIONS: Reviewed medication list with facility includes Elicurtisis SOCIAL HISTORY: Normally resides in apartment currently at [facility] PHYSICAL EXAM: GENERAL: alert and oriented in no acute distress on stretcher but does report some hallucinations to me. States that he feels that there is some issues in his room here in [place] where there is construction Head: normocephalic and atraumatic EYES: No injection, discharge or icterus. NECK: Trachea midline ENT: Mucous membranes pink and moist. LUNGS: Airway patent. No retractions. Breath sounds clear HEART: Regular rate and rhythm. No chest wall tenderness ABDOMEN: Soft and non-tender, without guarding or rebound. Nguyễn in place SKIN: Acyanotic, warm, dry, without rashes EXTREMITIES: Healing wound skin tears on the bilateral forearms. Some slight abrasions bilateral rondon. Sutures to the left fifth pinky toe noted. No sign ificant erythema. Some mildly diminished capillary refill as well as perfusion of the lower extremities noted. NEUROLOGICAL: No focal deficits. No aphasia. No facial droop or slurred speech. EK bpm ventricular paced rhythm. No acute ST segment elevation or depression. QTc 578. CONTINUOUS CARDIAC MONITORING: was ordered and showed a heart rate of 70s to 80s bpm in ventricular paced 1 view chest x-ray per interpretation: Pacemaker in place, no pneumothorax, some interstitial thickening but no clear pneumonia noted. 2 view left hip and pelvis x-ray per my interpretation: Evidence of bilateral arthroplasties without acute pelvic fracture with a persistent left periprosthetic hip fracture. Patient's laboratory studies and imaging reviewed. Differential includes Infection, dehydration, metabolic abnormality, hypo/hyperglycemia, electrolyte disturbance, anemia, hypoxia, cardiac sources, intracerebral event, toxicologic, neurologic, as well as other pathologies. IMPRESSION/MEDICAL DECISION MAKING: Patient was hallucinations. Not having significant focal deficits given his kno wn hip fracture. Chronic Nguyễn in place. We will change this today as there is reports of UTI. Has been on Rocephin as well as Keflex. Obtained records from the outside hospital via fax with evidence of E. coli, Proteus, as well as enteric coccus growing. Given a dose of Zosyn here. Enteric coccus would not be covered on the Keflex he received previously. Afebrile here. Given his anticoagulation use hallucinations CT of the head was completed. Little bit of chest congestion reported but not significantly hypoxic here. Blood work with mild leukocytosis and 0.4. But no anemia. Some slightly worsened CKD with creatinine of 2.7 from baseline in the low twos recently. No evidence of significant hepatitis or rhabdomyolysis. Troponin mildly elevated but much improved from previous. Ammonia not elevated. Some component of sundowning and hospitalization related issues may be contributing as well. Discussed with patient and his daughter at this time staying for further care. Hopefully with treatment of the UTI and reorientation we can improve his hallucinations status. Hospitalist team contacted. Again antibiotics given and Nguyễn change.. DIAGNOSIS: Hallucinations, UTI from indwelling Nguyễn DISPOSITION: Hospitalist will evaluate Patient was agreeable with this plan. Past Med/Surg History Medical History (Updated 03/16/23 @ 21:30 by Brandon Adorno M.D.) Anemia Anorectal fistula Arthritis Asthma Atrial fibrillation Carotid artery stenosis >70% NEHAL, <50% LICA Chronic kidney disease, stage 3 (moderate) COPD (chronic obstructive pulmonary disease) Coronary artery disease Remote h/o stent to RCA. Stent patent on 2005 cath per cardio. Degenerative arthritis of right knee Diabetes mellitus, type 2 Diastolic congestive heart failure Eczema Erectile dysfunction H/O difficult intubation Glidescope 2011 lap tracie History of anesthesia reaction SOMETIMES COMES OUT SWINGING History of ND (myocardial infarction) TOTAL OF 3 History of pulmonary embolism (02/2011) HX BILATERAL Hyperlipidemia Hypertension Ischemic cardiomyopathy Mitral regurgitation On anticoagulant therapy PAD (peripheral artery disease) (03/14/14) L common iliac angioplasty/stent, stenting of totally occluded R SFA, angioplasty of occluded RCF 2006. Angioplasty to R SFA in-stent stenosis 2013. PVCs (premature ventricular contractions) Restrictive lung disease Right lower lobe pulmonary nodule Noted on CT 04/03, 12mo f/u recommended. 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 S/P cataract surgery R/L S/P coronary artery stent placement (1995) RCA Status post angioplasty (2013) to R SFA in stent stenosis Status post surgery (12/15/17) placement of seton drain in transsphinteric fistula - 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 AND ALWAYS IS DRAINING Family History Mother Thyroid disease Family history of diabetes mellitus Father Coronary heart disease Emphysema of lung Family history of diabetes mellitus Uncle Family history of colon cancer Denies family history of Colon cancer Ovarian cancer Prostate cancer Myocardial infarction Breast cancer Lung cancer Colorectal cancer Social History Smoking Status: Former smoker Tobacco Type: Cigarettes Cigarettes Per Day: COUPLE TIMES A DAY TO SMOKE PIPE; Second Hand Exposure: No; Do You Dip or Chew Tobacco: No; Hx Alcohol Use: No Hx Substance Use: No Preferred Language: Yi Communication Ability: Effective Communication Ability Comment: PHONE INTERVIEW DONE WITH DAUGHTERSHADE PER PT REQUEST Visual Impairment: No Limitations Hearing Ability: Use of Hearing Aid Homeland Security Program Specialist Required: No Beliefs That Will Affect Care: None marital status: / Current Living Situation: Alone Current Living Situation Comment: lives alone in apartment current occupational status: retired How many Children do You have: 2 Feels Safe at Home: Yes Childhood Exposure to Second-Hand Smoke: No Diet Comment: regular caffeine: Yes (2-3 cups coffee) during the past year weight has: increased > 10 lbs Dental Care, Regularly: Yes Physical Activity Frequency: 1-2 Times per Week Seatbelt Use: always Sunscreen Use: Yes Assistive Devices: Cane and Walker Allergies Allergies Allergy/AdvReac Type Severity Reaction Status Date / Time ciprofloxacin Allergy Intermediate Rash Verified 03/16/23 20:12 warfarin Allergy Intermediate hives, rash Verified 03/16/23 20:12 niacin AdvReac Severe LEG Verified 03/16/23 20:12 [From Niaspan WEAKNESS Extended-Release] Runzlqs-[id number]-SbH Reductase AdvReac Severe muscle Verified 03/16/23 20:12 Inhibitor weakness,pain, [Czkimuu-Uxk-Xwc Reductase cramps Inhibitor] umeclidinium AdvReac Unknown "NOT Verified 03/16/23 20:12 [From Anoro Ellipta] ALLERGIC,DOES NOTHING FOR ME" vilanterol AdvReac Unknown "NOT Verified 03/16/23 20:12 [From Anoro Ellipta] ALLERGIC, DOES NOTHING FOR ME" Home Meds Home Medications Medication Instructions Recorded Confirmed acetaminophen 325 mg tablet 650 mg PO Q6 PRN Fever Or Pain 03/16/23 03/16/23 (Tylenol) amiodarone 200 mg tablet 200 mg PO BID 03/16/23 03/16/23 ampicillin 500 mg capsule 500 mg PO Q12 03/16/23 03/16/23 apixaban 2.5 mg tablet (Eliquis) 2.5 mg PO BID 03/16/23 03/16/23 cholecalciferol (vitamin D3) 50 50 mcg PO DAILY 03/16/23 03/16/23 mcg (2,000 unit) tablet (Vitamin D3) fluticasone furoate 100 1 inh inhalation DAILY 03/16/23 03/16/23 mcg-vilanterol 25 mcg/dose inhalation powder (Breo Ellipta) furosemide 20 mg tablet 20 mg PO DAILY 03/16/23 03/16/23 ipratropium 0.5 mg-albuterol 3 mg 3 ml inhalation Q6H PRN .SOB/COUGH 03/16/23 03/16/23 (2.5 mg base)/3 mL nebulization soln melatonin 5 mg tablet 5 mg PO HS 03/16/23 03/16/23 metoprolol succinate 25 mg 25 mg PO HS 03/16/23 03/16/23 tablet,extended release 24 hr nitroglycerin 0.4 mg sublingual 0.4 mg sublingual DIRECTED PRN 03/16/23 03/16/23 tablet (Nitrostat) .CHEST PAIN nystatin 100,000 unit/mL oral 5 ml PO Q6 .SORE MOUTH 03/16/23 03/16/23 suspension potassium chloride 10 mEq 10 meq PO DAILY 03/16/23 03/16/23 tablet,extended release sennosides 8.6 mg-docusate sodium 1 tab-cap PO DAILY 03/16/23 03/16/23 50 mg tablet (Senna-S) Results & Data (ED) Vital Signs Vital Signs - 24 hr 03/16/23 18:15 03/16/23 18:16 03/16/23 20:38 Temperature 36.5 C Temperature Source Oral Pulse Rate 87 85 Pulse Rate [Apical] 70 Respiratory Rate 20 21 Respiratory Effort / Characteristics Non-Labored Spontaneous Non-Labored Spontaneous Respiratory Depth Normal Normal Respiratory Pattern Regular Regular Blood Pressure 126/72 Blood Pressure [Right Arm] 127/80 Blood Pressure Mean 90 Blood Pressure Mean [Right Arm] 95 Blood Pressure Position Semi-fowlers Pulse Oximetry 95 100 Oxygen Delivery Method Room Air Nasal Cannula Oxygen Flow Rate 2 Sepsis Recent Fever Within 48 Hours No Sepsis New/Unexplained Change in Mental Status Yes Sepsis Action Taken by Nursing No Action Required Laboratory Data 03/16/23 18:23 03/16/23 18:23 Lab Results 03/16/23 03/16/23 03/16/23 Range/Units 18:23 18:23 18:23 WBC (4.8-10.8) K/ul RBC (4.70-6.10) M/uL Hgb (14.0-18.0) g/dl Hct (42.0-52.0) % MCV (80.0-100.0) fL MCH (25.0-34.0) pg MCHC (32.0-36.0) g/dL RDW Std Deviation (36.4-46.3) fL RDW Coeff of Anton (11.5-14.5) % Plt Count (130-400) K/uL MPV (9.4-12.4) fL Immature Gran % (Auto) % Neut % (Auto) % Lymph % (Auto) % [place] % (Auto) % Eos % (Auto) % Baso % (Auto) % Neut # (Auto) (1.40-6.50) K/uL Lymph # (Auto) (1.2-3.4) K/uL [place] # (Auto) (0.11-0.59) K/uL Eos # (Auto) (0-0.50) K/uL Baso # (Auto) (0-0.2) K/uL Immature Gran # (Auto) (0.01-0.20) K/uL PT 12.9 H (9.0-12.0) Seconds INR 1.2 H (0.9-1.1) Sodium 135 L (136-145) mmol/L Potassium 5.0 (3.5-5.1) mmol/L Chloride 103 (98-107) mmol/L Carbon Dioxide 24 (21-32) mmol/L Anion Gap 8 (3-11) BUN 43 H (6-23) mg/dl Creatinine 2.75 H (0.6-1.4) mg/dl Est Cr Clr Drug Dosing 24.0 ml/min Est GFR ( Amer) 23.5 ml/min Est GFR (Non-Af Amer) 20.3 ml/min BUN/Creatinine Ratio 15.6 (10-20) Glucose 94 (70-99(Fasting)) mg/dl Lactate 1.9 (0.4-2.0) mmol/L Calcium 8.7 (8.6-10.3) mg/dl Magnesium 2.1 (1.7-2.4) mg/dl Total Bilirubin 1.3 H (0.2-1.0) mg/dl AST 15 (13-39) U/L ALT 10 (7-52) U/L Alkaline Phosphatase 145 H (34-104) U/L Ammonia (18-72) umol/L Total Creatine Kinase 43 (30-223) U/L Troponin I High Sens 42.0 H (0-20) pg/ml Total Protein 7.1 (6.0-8.3) gm/dl Albumin 3.5 (3.4-5.0) gm/dl Globulin 3.6 (2.5-4.0) gm/dl Albumin/Globulin Ratio 1.0 (0.9-2) TSH (0.300-4.500) uIu/ml Free T4 (0.61-1.60) ng/dl Urine Color Urine Appearance (Clear) Urine pH (4.5-7.5) Ur Specific Grayson (1.000-1.030) Urine Protein (Negative) Urine Glucose (UA) (Negative) Urine Ketones (Negative) Urine Blood (Negative) Urine Nitrite (Negative) Urine Bilirubin (Negative) Urine Urobilinogen (Negative) Ur Leukocyte Esterase (Negative) SARS-CoV-2 (PCR) (Negative) 03/16/23 03/16/23 03/16/23 Range/Units 18:23 18:23 18:45 WBC 11.40 H (4.8-10.8) K/ul RBC 4.53 L (4.70-6.10) M/uL Hgb 14.5 (14.0-18.0) g/dl Hct 43.6 (42.0-52.0) % MCV 96.2 (80.0-100.0) fL MCH 32.0 (25.0-34.0) pg MCHC 33.3 (32.0-36.0) g/dL RDW Std Deviation 54.5 H (36.4-46.3) fL RDW Coeff of Anton 15.4 H (11.5-14.5) % Plt Count 259 (130-400) K/uL MPV 9.4 (9.4-12.4) fL Immature Gran % (Auto) 0.4 % Neut % (Auto) 78.6 % Lymph % (Auto) 6.3 % Collingsworth % (Auto) 11.8 % Eos % (Auto) 2.3 % Baso % (Auto) 0.6 % Neut # (Auto) 8.95 H (1.40-6.50) K/uL Lymph # (Auto) 0.72 L (1.2-3.4) K/uL Coll[place]worth # (Auto) 1.35 H (0.11-0.59) K/uL Eos # (Auto) 0.26 (0-0.50) K/uL Baso # (Auto) 0.07 (0-0.2) K/uL Immature Gran # (Auto) 0.05 (0.01-0.20) K/uL PT (9.0-12.0) Seconds INR (0.9-1.1) Sodium (136-145) mmol/L Potassium (3.5-5.1) mmol/L Chloride (98-107) mmol/L Carbon Dioxide (21-32) mmol/L Anion Gap (3-11) BUN (6-23) mg/dl Creatinine (0.6-1.4) mg/dl Est Cr Clr Drug Dosing ml/min Est GFR ( Amer) ml/min Est GFR (Non-Af Amer) ml/min BUN/Creatinine Ratio (10-20) Glucose (70-99(Fasting)) mg/dl Lactate (0.4-2.0) mmol/L Calcium (8.6-10.3) mg/dl Magnesium (1.7-2.4) mg/dl Total Bilirubin (0.2-1.0) mg/dl AST (13-39) U/L ALT (7-52) U/L Alkaline Phosphatase (34-104) U/L Ammonia 11.0 L (18-72) umol/L Total Creatine Kinase (30-223) U/L Troponin I High Sens (0-20) pg/ml Total Protein (6.0-8.3) gm/dl Albumin (3.4-5.0) gm/dl Globulin (2.5-4.0) gm/dl Albumin/Globulin Ratio (0.9-2) TSH 7.762 H (0.300-4.500) uIu/ml Free T4 1.27 (0.61-1.60) ng/dl Urine Color Urine Appearance (Clear) Urine pH (4.5-7.5) Ur Specific Grayson (1.000-1.030) Urine Protein (Negative) Urine Glucose (UA) (Negative) Urine Ketones (Negative) Urine Blood (Negative) Urine Nitrite (Negative) Urine Bilirubin (Negative) Urine Urobilinogen (Negative) Ur Leukocyte Esterase (Negative) SARS-CoV-2 (PCR) (Negative) 03/16/23 03/16/23 Range/Units 19:28 21:04 WBC (4.8-10.8) K/ul RBC (4.70-6.10) M/uL Hgb (14.0-18.0) g/dl Hct (42.0-52.0) % MCV (80.0-100.0) fL MCH (25.0-34.0) pg MCHC (32.0-36.0) g/dL RDW Std Deviation (36.4-46.3) fL RDW Coeff of Anton (11.5-14.5) % Plt Count (130-400) K/uL MPV (9.4-12.4) fL Immature Gran % (Auto) % Neut % (Auto) % Lymph % (Auto) % [place] % (Auto) % Eos % (Auto) % Baso % (Auto) % Neut # (Auto) (1.40-6.50) K/uL Lymph # (Auto) (1.2-3.4) K/uL [place] # (Auto) (0.11-0.59) K/uL Eos # (Auto) (0-0.50) K/uL Baso # (Auto) (0-0.2) K/uL Immature Gran # (Auto) (0.01-0.20) K/uL PT (9.0-12.0) Seconds INR (0.9-1.1) Sodium (136-145) mmol/L Potassium (3.5-5.1) mmol/L Chloride (98-107) mmol/L Carbon Dioxide (21-32) mmol/L Anion Gap (3-11) BUN (6-23) mg/dl Creatinine (0.6-1.4) mg/dl Est Cr Clr Drug Dosing ml/min Est GFR ( Amer) ml/min Est GFR (Non-Af Amer) ml/min BUN/Creatinine Ratio (10-20) Glucose (70-99(Fasting)) mg/dl Lactate (0.4-2.0) mmol/L Calcium (8.6-10.3) mg/dl Magnesium (1.7-2.4) mg/dl Total Bilirubin (0.2-1.0) mg/dl AST (13-39) U/L ALT (7-52) U/L Alkaline Phosphatase (34-104) U/L Ammonia (18-72) umol/L Total Creatine Kinase (30-223) U/L Troponin I High Sens (0-20) pg/ml Total Protein (6.0-8.3) gm/dl Albumin (3.4-5.0) gm/dl Globulin (2.5-4.0) gm/dl Albumin/Globulin Ratio (0.9-2) TSH (0.300-4.500) uIu/ml Free T4 (0.61-1.60) ng/dl Urine Color Yellow Urine Appearance Clear (Clear) Urine pH 5.0 (4.5-7.5) Ur Specific Grayson 1.018 (1.000-1.030) Urine Protein Trace H (Negative) Urine Glucose (UA) Negative (Negative) Urine Ketones Negative (Negative) Urine Blood 3+ H (Negative) Urine Nitrite Negative (Negative) Urine Bilirubin Negative (Negative) Urine Urobilinogen Negative (Negative) Ur Leukocyte Esterase Negative (Negative) SARS-CoV-2 (PCR) NEGATIVE (Negative) Administered Medications Discontinued Medications Piperacillin Sod/Tazobactam Sod (Zosyn) 4.5 gm in 120 mls @ 240 mls/hr IV NOW ONE Stop: 03/16/23 19:02 Last Infusion: 03/16/23 21:20 Dose: 0 mls/hr Documented By: sales product manager: 03/16/23 20:11 Dose: 240 mls/hr Documented By: [employer] Imaging Data Radiologist's Impression: Head CT 03/16/23 18:26 Exam(s): CT HEAD Without Contrast EXAM: CT Head Without Intravenous Contrast CLINICAL HISTORY: Reason for exam: hallucinations. TECHNIQUE: Axial computed tomography images of the head/brain without intravenous contrast. CTDI is 37.78 mGy and DLP is 703.85 mGy-cm. Automated exposure control was utilized for the study. A dose lowering technique was utilized adhering to the principles of ALARA. COMPARISON: CT head on 11/19/2022 FINDINGS: Brain: No acute infarct or hemorrhage identified. No extra-axial fluid collection. No mass effect or midline shift. Scattered areas of hypoattenuation in the supratentorial white matter likely represent chronic small vessel ischemic changes. Ventricles and sulci: Prominence of the ventricles and sulci is likely secondary to cerebral volume loss. Bones: Normal. No bony lesion or acute fracture. Subcutaneous tissues: Normal. Sinuses: Normal. No air-fluid levels or mucosal thickening. Mastoid air cells: Small amount of fluid in the inferior mastoid air cells. Orbits: Bilateral lens implants. Other: Atherosclerotic calcifications in the intracranial vasculature. IMPRESSION: 1. No acute intracranial abnormality. If there is persistent concern for an acute process, consider further evaluation with MRI. 2. Chronic small vessel ischemic changes and cerebral volume loss. Electronically signed by: Francisco Guan M.D. 03/16/23 19:42 PM Discharge Plan Visit Data Chief Complaint: Altered Mental Status Stated Complaint: HALLUCINATIONS ED Provider: Brandon Adorno Discharge Problem: Hallucinations, Anabel-prosthetic fracture around prosthetic hip, Acute UTI, Chronic indwelling Nguyễn catheter Patient Disposition: Being Evaluated by Hospitalist Forms Stand Alone Forms: [facility] Prescriptions Prescriptions: No Action nystatin 100,000 unit/mL Suspension 5 ml PO Q6 Rx Instructions: swish and spit, use until sore mouth resolved acetaminophen [Tylenol] 325 mg Tablet 650 mg PO Q6 PRN (Reason: Fever Or Pain) ipratropium-albuterol 0.5 mg-3 mg(2.5 mg base)/3 mL Solution For Nebulization 3 ml INHALATION Q6H PRN (Reason: .SOB/COUGH) amiodarone 200 mg tablet 200 mg PO BID ampicillin 500 mg Capsule 500 mg PO Q12 Rx Instructions: Start 03/16/23 @ 2100, 10 days sennosides-docusate sodium [Senna-S] 8.6-50 mg Tablet 1 tab-cap PO DAILY potassium chloride 10 mEq tablet extended release 10 meq PO DAILY nitroglycerin [Nitrostat] 0.4 mg Tablet, Sublingual 0.4 mg sublingual DIRECTED PRN (Reason: .CHEST PAIN) furosemide 20 mg tablet 20 mg PO DAILY metoprolol succinate 25 mg tablet extended release 24 hr 25 mg PO HS melatonin 5 mg Tablet 5 mg PO HS cholecalciferol (vitamin D3) [Vitamin D3] 50 mcg (2,000 unit) Tablet 50 mcg PO DAILY Eliquis 2.5 mg tablet 2.5 mg PO BID fluticasone furoate-vilanterol [Breo Ellipta] 100-25 mcg/dose Blister With Device 1 inh INHALATION DAILY Referrals Referrals: [facility],Hospital [Primary Care Provider] -
--- NOTE | 2023-03-16 19:43 | CT Scan Report ---
Exam(s): CT HEAD Without Contrast EXAM: CT Head Without Intravenous Contrast CLINICAL HISTORY: Reason for exam: hallucinations. TECHNIQUE: Axial computed tomography images of the head/brain without intravenous contrast. CTDI is 37.78 mGy and DLP is 703.85 mGy-cm. Automated exposure control was utilized for the study. A dose lowering technique was utilized adhering to the principles of ALARA. COMPARISON: CT head on 11/19/2022 FINDINGS: Brain: No acute infarct or hemorrhage identified. No extra-axial fluid collection. No mass effect or midline shift. Scattered areas of hypoattenuation in the supratentorial white matter likely represent chronic small vessel ischemic changes. Ventricles and sulci: Prominence of the ventricles and sulci is likely secondary to cerebral volume loss. Bones: Normal. No bony lesion or acute fracture. Subcutaneous tissues: Normal. Sinuses: Normal. No air-fluid levels or mucosal thickening. Mastoid air cells: Small amount of fluid in the inferior mastoid air cells. Orbits: Bilateral lens implants. Other: Atherosclerotic calcifications in the intracranial vasculature. IMPRESSION: 1. No acute intracranial abnormality. If there is persistent concern for an acute process, consider further evaluation with MRI. 2. Chronic small vessel ischemic changes and cerebral volume loss. Electronically signed by: Francisco Guan M.D. 03/16/23 19:42 PM
[2023-03-16 19:57] LABS: T4 Free Thyroxine 1.27 ng/dl (0.61-1.60)
--- NOTE | 2023-03-16 20:33 | History & Physical Report ---
Date of Service March 16, 2023 Assessment & Plan (1) Delirium: Plan: 82yo male with multiple medical comorbidities presents from [facility] with progressive confusion, auditory and visual hallucinations. Delirium likely secondary to UTI. Workup otherwise with mild elevation of WBC=11.4. Electrolytes normal with exception of mild hyponatremia Wx=120. BUN=43, Cr=2.75 which is slightly increased from baseline. Ammonia, thyroid studies are not concerning. CT Head with no acute issue. -Admit to medical -Delirium prevention strategies with frequent orientation, maintenance of sleep/wake cycles when able. Patient would benefit from undisturbed sleep, no PM vital signs if they are stable. Avoidance of potential delirium-inducing agents -Maintain fall precautions -Treatment of UTI as below -If persistent delirium would consider low dose scheduled Haldol vs Zyprexa -Melatonin qHS (2) UTI (urinary tract infection): Plan: Patient with UTI - preliminary culture from [place] with E. coli, Proteus and Enterococcus. No sensitivities at this time. Patient with Nguyễn catheter in place since his fall in January. Nguyễn was changed x 2, most recently today in the ER 03/16/23. No history of multi-drug resistant organisms per our records. -Await sensitivities -UA with reflex culture ordered here - likely not helpful given patient's recent antibiotic exposure, will follow -Continue Zosyn 4.5gm IV q 8 - renal adjustment with assistance of pharmacy appreciated (3) Anabel-prosthetic fracture around prosthetic hip: Plan: Patient admitted to [facility] following a fall resulting in a anabel-prosthetic fracture of the left hip. He maintains non-weight bearing status. Has been following with Orthopedic Surgery - last seen 03/10/23. During that time was complaining of pain with motion. He had X-rays obtained which showed the fracture in good alignment. He was progressed to weight bearing of the LLE as tolerated. He is to followup with Ortho in another 6 weeks. -PT evaluation for ambulation as tolerated -LLE weight bearing with caution (4) CKD (chronic kidney disease): Plan: BUN and Cr mildly elevated from baseline. -Avoid nephrotoxic agents -Renal dosing where needed -Repeat chemistry in AM -LR at 80mL/hr x 1L -Hold Lasix for now (5) Ischemic cardiomyopathy: Plan: Patient appears euvolemic to slightly dry. AICD in place - done in December by Dr. Mary. -Hold Lasix 20mg for now -Continue metoprolol 25mg po qPM -Was discharged from [facility] on Lisinopril 2.5mg po daily - not on his current medication list. Held due to poor renal function (6) Elevated troponin: Plan: Patient denies chest pain. No acute ischemic changes -Repeat in AM (7) COPD (chronic obstructive pulmonary disease): Plan: Chronic cough. No report of wheeze of SOB. Daughter states that his O2 level will often drop at night. He does not wear CPAP or other devices. -Continue Breo Ellipta daily -Duoneb q 6 hours PRN SOB -Supplemental O2 qHS (8) Paroxysmal atrial flutter: Plan: V-paced on EKG. -Continue Amiodarone 200mg po BID -Continue Apixaban 2.5mg po BID -Continue metoprolol 25mg po qHS F/E/N - LR at 80mL/hr x 1L, electrolytes WNL, CC/AHA diet as tolerated Ppx - On Apixaban for history of AF Code - DNR per discussion with patient and daughter at bedside Dispo -Admit to medical History of Present Illness Chief Complaint: delirium, UTI Primary Care Provider: [facility] Favian Multani is a pleasant 82yo male with multiple medical comorbidities including CAD, ischemic cardiomyopathy s/p dual chamber AICD, HTN, HLP, DM, COPD and CKD presenting from [facility] with several days of pro gressive confusion and delirium as well as a UTI. Patient was admitted to [facility] from 02/09/23 - 02/15/23 after sustaining a fall resulting in extensive avulsion wounds of bilateral arms as well as a closed periprosthetic fracture of the left hip. Patient was seen by Dr. Ma from Orthopedic Surgery during his admission. Fracture is non-operative. Patient had a Nguyễn catheter placed and was instructed to continue non-weightbearing status to the left leg for 6 weeks. He had extensive wound care with marked improvement in his avulsion wounds. Patient was discharged to [facility]. Daughter reports that early Wednesday AM, 03/12/23 the patient started getting confused. He was calling the police from his room at [facility] and began having auditory and visual hallucinations. Patient sustained a fall on 03/13/23 while trying to get out of bed. There was no report of head trauma or loss of consciousness. He did sustain a laceration of the plantar surface of his left 5th toe. He was seen in [place] ER and had sutures placed in the toe laceration. He had a urinalysis performed which was suggestive of UTI. He received a dose of IV Ceftriaxone in the ER and was sent home with Keflex. Preliminary urine cultures from today reveal >100,000 CFU of E. coli, Proteus and Enterococcus. Sensitivities pending. Patient was to be transitioned to Ampicillin but did not yet receive this medication. He presents to the ER with his daughter today. She reports progressive confusion since 03/12/23. Patient continues to have visual and auditory hallucinations. He reports "hearing music for 14 hours straight" in his head. He also has been having visions of his brother and is seeing birds in the room as well. Daughter states that prior to patient falling and breaking his hip he was full functional and independent. Patient with no complaints. He has a chronic cough and intermittent nausea. He has had some loose stools reported at [facility]. Otherwise denies fever, chills, chest pain, palpitations, vomiting, abdominal pain. No additional complaints. Patient remains non-weight bearing to the E. He has been using a wheelchair and a lift. Daughter voices concern for patient's skin -he is beginning to have some redness to his right heel and sacral area. ER Course: Zosyn 4.5gm Allergies Allergy/AdvReac Type Severity Reaction Status Date / Time ciprofloxacin Allergy Intermediate Rash Verified 03/16/23 20:12 warfarin Allergy Intermediate hives, rash Verified 03/16/23 20:12 niacin AdvReac Severe LEG Verified 03/16/23 20:12 [From Niaspan WEAKNESS Extended-Release] Rtziapj-AAI-DeX Reductase AdvReac Severe muscle Verified 03/16/23 20:12 Inhibitor weakness,pain, [Heehnav-Oyg-Hti Reductase cramps Inhibitor] umeclidinium AdvReac Unknown "NOT Verified 03/16/23 20:12 [From Anoro Ellipta] ALLERGIC,DOES NOTHING FOR ME" vilanterol AdvReac Unknown "NOT Verified 03/16/23 20:12 [From Anoro Ellipta] ALLERGIC, DOES NOTHING FOR ME" Home Medications Medication Instructions Recorded Confirmed Type acetaminophen 325 mg tablet 650 mg PO Q6 PRN Fever Or Pain 03/16/23 03/16/23 History (Tylenol) amiodarone 200 mg tablet 200 mg PO BID 03/16/23 03/16/23 History ampicillin 500 mg capsule 500 mg PO Q12 03/16/23 03/16/23 History apixaban 2.5 mg tablet (Eliquis) 2.5 mg PO BID 03/16/23 03/16/23 History cholecalciferol (vitamin D3) 50 50 mcg PO DAILY 03/16/23 03/16/23 History mcg (2,000 unit) tablet (Vitamin D3) fluticasone furoate 100 1 inh inhalation DAILY 03/16/23 03/16/23 History mcg-vilanterol 25 mcg/dose inhalation powder (Breo Ellipta) furosemide 20 mg tablet 20 mg PO DAILY 03/16/23 03/16/23 History ipratropium 0.5 mg-albuterol 3 mg 3 ml inhalation Q6H PRN .SOB/COUGH 03/16/23 03/16/23 History (2.5 mg base)/3 mL nebulization soln melatonin 5 mg tablet 5 mg PO HS 03/16/23 03/16/23 History metoprolol succinate 25 mg 25 mg PO HS 03/16/23 03/16/23 History tablet,extended release 24 hr nitroglycerin 0.4 mg sublingual 0.4 mg sublingual DIRECTED PRN 03/16/23 03/16/23 History tablet (Nitrostat) .CHEST PAIN nystatin 100,000 unit/mL oral 5 ml PO Q6 .SORE MOUTH 03/16/23 03/16/23 History suspension potassium chloride 10 mEq 10 meq PO DAILY 03/16/23 03/16/23 History tablet,extended release sennosides 8.6 mg-docusate sodium 1 tab-cap PO DAILY 03/16/23 03/16/23 History 50 mg tablet (Senna-S) Past Med/Surg History Medical History (Updated 03/16/23 @ 21:10 by Radha Ford DO) Anemia Anorectal fistula Arthritis Asthma Atrial fibrillation Carotid artery stenosis >70% NEHAL, <50% LICA Chronic kidney disease, stage 3 (moderate) COPD (chronic obstructive pulmonary disease) Coronary artery disease Remote h/o stent to RCA. Stent patent on 2005 cath per cardio. Degenerative arthritis of right knee Diabetes mellitus, type 2 Diastolic congestive heart failure Eczema Erectile dysfunction H/O difficult intubation Glidescope 2011 lap tracie History of anesthesia reaction SOMETIMES COMES OUT SWINGING History of [place] (myocardial infarction) TOTAL OF 3 History of pulmonary embolism (02/2011) HX BILATERAL Hyperlipidemia Hypertension Ischemic cardiomyopathy Mitral regurgitation On anticoagulant therapy PAD (peripheral artery disease) (03/14/14) L common iliac angioplasty/stent, stenting of totally occluded R SFA, angioplasty of occluded RCF 2006. Angioplasty to R SFA in-stent stenosis 2013. PVCs (premature ventricular contractions) Restrictive lung disease Right lower lobe pulmonary nodule Noted on CT 04/03, 12mo f/u recommended. 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 S/P cataract surgery R/L S/P coronary artery stent placement (1995) RCA Status post angioplasty (2013) to R SFA in stent stenosis Status post surgery (12/15/17) placement of seton drain in transsphinteric fistula - 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 AND ALWAYS IS DRAINING Family History Mother Thyroid disease Family history of diabetes mellitus Father Coronary heart disease Emphysema of lung Family history of diabetes mellitus Uncle Family history of colon cancer Denies family history of Colon cancer Ovarian cancer Prostate cancer Myocardial infarction Breast cancer Lung cancer Colorectal cancer Social History Smoking Status: Former smoker Tobacco Type: Cigarettes Cigarettes Per Day: COUPLE TIMES A DAY TO SMOKE PIPE; Second Hand Exposure: No; Do You Dip or Chew Tobacco: No; Hx Alcohol Use: No Hx Substance Use: No Preferred Language: Paraguayan Communication Ability: Effective Communication Ability Comment: PHONE INTERVIEW DONE WITH DAUGHTERSHADE PER PT REQUEST Visual Impairment: No Limitations Hearing Ability: Use of Hearing Aid Php Mysql Developer Required: No Beliefs That Will Affect Care: None marital status: / Current Living Situation: Alone Current Living Situation Comment: lives alone in apartment current occupational status: retired How many Children do You have: 2 Feels Safe at Home: Yes Childhood Exposure to Second-Hand Smoke: No Diet Comment: regular caffeine: Yes (2-3 cups coffee) during the past year weight has: increased > 10 lbs Dental Care, Regularly: Yes Physical Activity Frequency: 1-2 Times per Week Seatbelt Use: always Sunscreen Use: Yes Assistive Devices: Cane and Walker Review of Systems Review of Systems: All systems reviewed & are unremarkable except as noted in HPI & below Physical Exam Physical Exam: General: patient resting comfortably, NAD, non-toxic in appearance, AA&O to self and date, able to state that he is coming from [facility] Skin: warm, dry, avulsion wounds with dressing in place to bilateral forearms, scattered abrasions and bruising on bilateral forearms and legs with no active bleeding or evidence of secondary infection, redness to sacral area and right heel, sutures in place left 5th toe plantar surface HEENT: NC/AT, PERRL, EOMI, anicteric sclera, conjunctiva without injection, external ear normal to inspection and nontender, nares patent, moist mucus membranes, dentition intact, no oropharyngeal lesions, neck supple, trachea midline, no LAD, no thyromegaly, no JVD Heart: +S1/S2, regular, no m/r/g, AICD in place Lungs: equal air entry bilaterally, crackles in right lower lung, no wheezing Abd: +BS, soft, NT/ND, no masses/organomegaly/ascites Ext: warm, 2+ pulses in UE/LE bilaterally, no clubbing/cyanosis or edema Neuro: nonfocal, patient AA&O x 2, confused, speaking about hearing music and seeing birds, speech intact, no facial droop, moving all extremities on command with equal strength 5/5 Results & Data Results & Data Vital Signs (Past 12 Hours) Vital Signs Temp Pulse Resp BP Pulse Ox O2 Del Method 03/16/23 18:16 85 03/16/23 18:15 36.5 C 87 20 126/72 95 Room Air Laboratory Results Laboratory Results WBC 11.40 K/ul (4.8-10.8) H 03/16/23 18: RBC 4.53 M/uL (4.70-6.10) L 03/16/23 18:23 Hgb 14.5 g/dl (14.0-18.0) 03/16/23 18: Hct 43.6 % (42.0-52.0) 03/16/23 18: MCV 96.2 fL (80.0-100.0) 03/16/23 18: MCH 32.0 pg (25.0-34.0) 03/16/23 18: MCHC 33.3 g/dL (32.0-36.0) 03/16/23 18: RDW Std Deviation 54.5 fL (36.4-46.3) H 03/16/23 18: RDW Coeff of Anton 15.4 % (11.5-14.5) H 03/16/23 18: Plt Count 259 K/uL (130-400) 03/16/23 18: MPV 9.4 fL (9.4-12.4) 03/16/23 18: Immature Gran % (Auto) 0.4 % 03/16/23 18: Neut % (Auto) 78.6 % 03/16/23 18:23 Lymph % (Auto) 6.3 % 03/16/23 18:23 Antelope % (Auto) 11.8 % 03/16/23 18:23 Eos % (Auto) 2.3 % 03/16/23 18:23 Baso % (Auto) 0.6 % 03/16/23 18:23 Neut # (Auto) 8.95 K/uL (1.40-6.50) H 03/16/23 18:23 Lymph # (Auto) 0.72 K/uL (1.2-3.4) L 03/16/23 18:23 Antelope # (Auto) 1.35 K/uL (0.11-0.59) H 03/16/23 18:23 Eos # (Auto) 0.26 K/uL (0-0.50) 03/16/23 18:23 Baso # (Auto) 0.07 K/uL (0-0.2) 03/16/23 18:23 Immature Gran # (Auto) 0.05 K/uL (0.01-0.20) 03/16/23 18:23 PT 12.9 Seconds (9.0-12.0) H 03/16/23 18:23 INR 1.2 (0.9-1.1) H 03/16/23 18:23 Sodium 135 mmol/L (136-145) L 03/16/23 18:23 Potassium 5.0 mmol/L (3.5-5.1) 03/16/23 18:23 Chloride 103 mmol/L (98-107) 03/16/23 18:23 Carbon Dioxide 24 mmol/L (21-32) 03/16/23 18:23 Anion Gap 8 (3-11) 03/16/23 18:23 BUN 43 mg/dl (6-23) H 03/16/23 18: Creatinine 2.75 mg/dl (0.6-1.4) H 03/16/23 18:23 Est Cr Clr Drug Dosing 24.0 ml/min 03/16/23 18:23 Est GFR ( Amer) 23.5 ml/min 03/16/23 18:23 Est GFR (Non-Af Amer) 20.3 ml/min 03/16/23 18:23 BUN/Creatinine Ratio 15.6 (10-20) 03/16/23 18:23 Glucose 94 mg/dl (70-99(Fasting)) 03/16/23 18: Lactate 1.9 mmol/L (0.4-2.0) 03/16/23 18: Calcium 8.7 mg/dl (8.6-10.3) 03/16/23 18:23 Magnesium 2.1 mg/dl (1.7-2.4) 03/16/23 18: Total Bilirubin 1.3 mg/dl (0.2-1.0) H 03/16/23 18:23 AST 15 U/L (13-39) 03/16/23 18:23 ALT 10 U/L (7-52) 03/16/23 18:23 Alkaline Phosphatase 145 U/L (34-104) H 03/16/23 18:23 Ammonia 11.0 umol/L (18-72) L 03/16/23 18:45 Total Creatine Kinase 43 U/L (30-223) 03/16/23 18:23 Troponin I High Sens 42.0 pg/ml (0-20) H 03/16/23 18:23 Total Protein 7.1 gm/dl (6.0-8.3) 03/16/23 18:23 Albumin 3.5 gm/dl (3.4-5.0) 03/16/23 18:23 Globulin 3.6 gm/dl (2.5-4.0) 03/16/23 18:23 Albumin/Globulin Ratio 1.0 (0.9-2) 03/16/23 18:23 TSH 7.762 uIu/ml (0.300-4.500) H 03/16/23 18:23 Free T4 1.27 ng/dl (0.61-1.60) 03/16/23 18:23 SARS-CoV-2 (PCR) NEGATIVE (Negative) 03/16/23 19:[address] 03/16/23 18:26 Exam(s): CT HEAD Without Contrast EXAM: CT Head Without Intravenous Contrast CLINICAL HISTORY: Reason for exam: hallucinations. TECHNIQUE: Axial computed tomography images of the head/brain without intravenous contrast. CTDI is 37.78 mGy and DLP is 703.85 mGy-cm. Automated exposure control was utilized for the study. A dose lowering technique was utilized adhering to the principles of ALARA. COMPARISON: CT head on 11/19/2022 FINDINGS: Brain: No acute infarct or hemorrhage identified. No extra-axial fluid collection. No mass effect or midline shift. Scattered areas of hypoattenuation in the supratentorial white matter likely represent chronic small vessel ischemic changes. Ventricles and sulci: Prominence of the ventricles and sulci is likely secondary to cerebral volume loss. Bones: Normal. No bony lesion or acute fracture. Subcutaneous tissues: Normal. Sinuses: Normal. No air-fluid levels or mucosal thickening. Mastoid air cells: Small amount of fluid in the inferior mastoid air cells. Orbits: Bilateral lens implants. Other: Atherosclerotic calcifications in the intracranial vasculature. IMPRESSION: 1. No acute intracranial abnormality. If there is persistent concern for an acute process, consider further evaluation with MRI. 2. Chronic small vessel ischemic changes and cerebral volume loss. Electronically signed by: Francisco Guan M.D. 03/16/23 19:42 PM ECG Additional Comments: EKG reveals ventricular pacing, no acute ischemic changes Code Status & VTE Plan Code Status POLST form from [facility] states Full Code. Daughter/POA at bedside states that patient always said he wants to be DNR PG Care Time/CCT Total # of Minutes Spent Total Time Spent with Patient: Total time spent is greater than 50% in coordination of care (as documented) at patient's floor/unit and/or counseling patient: Coding Level of Care Code 84917 INT INP/OBS CARE 375MIN Diagnoses Delirium R41.0 UTI (urinary tract infection) N39.0 Anabel-prosthetic fracture around prosthetic hip M97.8XXA; Z96.649 CKD (chronic kidney disease) N18.9 Ischemic cardiomyopathy I25.5 Elevated troponin R77.8 COPD (chronic obstructive pulmonary disease) J44.9 COPD type: unspecified COPD Paroxysmal atrial flutter I48.92 (7) COPD (chronic obstructive pulmonary disease) COPD type: unspecified COPD Qualified Code(s): J44.9 - Chronic obstructive pulmonary disease, unspecified
[2023-03-16 21:18] LABS: Appearance Urine Clear (Clear); Bacteria Urine Automated Negative (Negative); Bilirubin Urine Negative (Negative); Blood Urine 3+ (Negative); Color Urine Yellow; Epithelial Cell Urine Auto >30 /lpf (0-5); Glucose Urine UA Negative (Negative); Ketones Urine Negative (Negative); Leukocyte Esterase Urine Negative (Negative); Nitrite Urine Negative (Negative); Protein Urine Trace (Negative); RBC Urine Automated >30 /hpf (0-4); Specific Gravity Urine 1.018 (1.000-1.030); Urobilinogen Urine Negative (Negative)
[2023-03-16] MEDS ORDERED: APIXABAN 2.5 MG TAB PO STA (21:30)
[2023-03-16] MEDS ORDERED: AMIODARONE 200 MG TAB PO ONE (21:30)
[2023-03-16] MEDS ORDERED: METOPROLOL SUCC 25MG EXT REL TAB PO STA (21:30)
[2023-03-16] MEDS ORDERED: ONDANSETRON INJ 2 MG/ML 2 ML VIAL IV PRN (21:55)
[2023-03-16] MEDS ORDERED: ACETAMINOPHEN 325 MG TAB PO PRN (21:55)
[2023-03-16] MEDS ORDERED: ALBUT/IPRATROP 3MG/0.5MG NEB 3 ML VIAL INH PRN (21:55)
[2023-03-16] MEDS ORDERED: LACTATED RINGER'S 1,000 ML IV SCH (21:55)
[2023-03-16] MEDS ORDERED: POLYETHYLENE (MIRALAX) 17 GM PACK PO PRN (21:55)
[2023-03-16] MEDS ORDERED: MELATONIN 3 MG TAB PO PRN (22:27)
[2023-03-17] MEDS ORDERED: Nursing to Pharmacy Communication SCH ×2 (03:30→14:30)
[2023-03-17] MEDS ORDERED: PIPERACILLIN/TAZOBACTAM 4.5 GM/100ML D5W IV ONE (03:33)
[2023-03-17] MEDS: PIPERACILLIN/TAZOBACTAM 4.5 GM in DEXTROSE 5% 100 ML IV SCH ×2 (03:39→12:54)
[2023-03-17 05:08] LABS: Hematocrit (blood only) 42.3 % (42.0-52.0); Hemoglobin 13.8 g/dl (14.0-18.0); Mean Corpuscular Hemoglobin 31.5 pg (25.0-34.0); Mean Corpuscular Hgb Conc 32.6 g/dL (32.0-36.0); Mean Corpuscular Volume 96.6 fL (80.0-100.0); Mean Platelet Volume 9.4 fL (9.4-12.4); Platelet Count 229 K/uL (130-400); RDW Coefficient of Variation 15.3 % (11.5-14.5); RDW Standard Deviation 54.8 fL (36.4-46.3); Red Blood Count 4.38 M/uL (4.70-6.10)
[2023-03-17 05:28] LABS: Albumin Level 3.2 gm/dl (3.4-5.0); BUN Creatinine Ratio 16.5 (10-20); Bilirubin Direct 0.4 mg/dl (0-0.2); Bilirubin,Total 1.4 mg/dl (0.2-1.0); Calcium 8.5 mg/dl (8.6-10.3); Creatinine Clr Calc Pharmacy 26.6 ml/min; Est GFR (African American) 26.6 ml/min; Est GFR (Non-African American) 22.9 ml/min; Potassium 4.8 mmol/L (3.5-5.1); Total Protein 6.4 gm/dl (6.0-8.3)
[2023-03-17 05:33] LABS: Troponin I High Sensitivity 41.1 pg/ml (0-20)
--- NOTE | 2023-03-17 07:05 | XRay Report ---
XR chest 1V portable HISTORY: 82 years-old Male weakness, cough, hallucinations acute cough with weakness COMPARISON: 03/11/2023 TECHNIQUE: AP view the chest FINDINGS: Cardiac silhouette is enlarged. Left subclavian pacer/AICD. Unchanged right hemidiaphragmatic elevati on. No pneumothorax. Pulmonary vascular congestion with interstitial coarsening and mild bibasilar de nsities. Degenerative changes of the shoulders and spine. IMPRESSION: Cardiomegaly with mild pulmonary edema and small pleural effusions. ACT 112: Negative or not required by law. The above report was generated using voice recognition software. It may contain grammatical, syntax o r spelling errors. Electronically signed by: Ananth Lopez M.D. 03/17/2023 7:04 AM
--- NOTE | 2023-03-17 07:45 | XRay Report ---
XR hip LT 2V w pelvis CLINICAL HISTORY: weak, recent frx, hallucinations TECHNIQUE: 2 views of the left hip and single frontal view of the pelvis were obtained. Comparison: Comparison is made to hip radiograph 03/11/[address] left hip 02/09/2023 FINDINGS: Redemonstration of comminuted fracture about the intertrochanteric left femur. Total hip arthoplasty hardware is seen without perihardware lucency or hardware fracture. Vascular calcifications are seen. There is a right arterial stent. IMPRESSION: Redemonstration of periprosthetic fracture. No new acute fractures are seen. ACT 112: Negative or not required by law. Electronically signed by: Seth Romano M.D. 03/17/2023 7:44 AM
--- NOTE | 2023-03-17 08:58 | Hospitalist Progress Note ---
Date of Service March 17, 2023 Assessment & Plan (1) Acute metabolic encephalopathy: Plan: 82yo male with multiple medical comorbidities presents from [facility] with progressive confusion, auditory and visual hallucinations. Delirium likely secondary to UTI. Workup otherwise with mild elevation of WBC=11.4. Electrolytes normal with exception of mild hyponatremia Hv=595. BUN=43, Cr=2.75 which is slightly increased from baseline. Ammonia normal. TSH mildly elevated at 7 but would not likely cause this degree of delirium. CT Head with no acute issue. Now completely resolved with treatment with IV antibiotics for UTI-on 03/17 is AAO x3 and able to recall numerous details of his recent history -Continue treatment for UTI -Delirium prevention strategies with frequent orientation, maintenance of sleep/wake cycles when able. Patient would benefit from undisturbed sleep, no PM vital signs if they are stable. Avoidance of potential delirium-inducing agents -Maintain fall precautions -Melatonin qHS as needed insomnia (2) UTI (urinary tract infection): Plan: Nguyễn catheter associated UTI Urine culture from [place] with E. coli, Proteus and Enterococcus. Obtained records from [facility]-E. coli pansensitive, Proteus resistant to ampicillin and cefazolin, as well as tetracycline, and Enterococcus resistant to tetracycline Patient with Nguyễn catheter in place since his fall in January. Nguyễn was changed x 2, most recently here in the ER 03/16/23. No history of multi-drug resistant organisms per our records. Nguyễn catheter remains in place as patient was mostly bedbound and unable to urinate from a lying position as per his daughter Urinalysis here with 3+ blood but no evidence of infection likely as he has been partially treated at least for the E. coli with 1 dose of Rocephin and p.o. Keflex prior to admission -Recommend trial of void prior to discharge now that he is able to bear weight as tolerated as per orthopedics with his left hip fracture -Received Zosyn on admission and does have clinical improvement, however based on sensitivities, this is not going to cover for the Proteus and Zosyn is not recommended for treatment of Enterococcus -Discontinue Zosyn and start ceftriaxone to cover for the E. coli and Proteus, and start daptomycin to cover for Enterococcus -Checking MRSA swab and if positive, will add vancomycin for pulmonary coverage given pneumonia on chest x-ray -Follow blood cultures-no growth to date -Follow CBC, CMP, CK (3) Hypoxia: Plan: With pulmonary edema and pulmonary vascular congestion with possible pneumonia seen on chest x-ray. With delirium likely more from UTI, but does have some cough and wheeze but also with chronic lung disease -Zosyn would also cover for pneumonia but no switching to ceftriaxone -Checking MRSA swab and add vancomycin if positive -Supplemental O2 as needed -Stop IV fluids and restart home Lasix 40 mg p.o. once daily -Continue home COPD inhalers -Follow chest x-ray to resolution (4) Abnormal TSH: Plan: TSH continues to trend upward since November, now up to 7.7 with normal free T4 Most likely secondary to amiodarone therapy -Consulted cardiology to discuss weaning off amiodarone and potentially starting another antiarrhythmic versus rate control strategy? -Follow TSH and if continues to worsen, may need to start thyroid replacement hormone therapy (5) Wound of lower extremity: Plan: Secondary to recent fall with sutures under left fifth toe and multiple small wounds on legs -Consult wound care -Will need suture removal in the next few days (6) Chronic combined systolic and diastolic CHF (congestive heart failure): Plan: Most recent EF 30-35% with wall motion abnormalities, also with right heart failure, moderate-severe MR, and mild AI in 11/2022 With lower extremity edema here that he states is his chronic amount, wheezing and crackles on examination and chest x-ray consistent with pulmonary edema -Stop IV fluids started on admission -Restart home Lasix 40 Mg p.o. once daily -Continue Toprol-XL -It appears his lisinopril is no longer on his medication list-unclear if this was discontinued at the long term or not?-Regardless, with acute kidney injury will hold for now -He is not on Entresto, SGLT-2, or spironolactone due to renal failure as per CHF clinic notes -Follow daily weights, strict I's and O's, change to low-sodium diet (7) Fletcher-prosthetic fracture around prosthetic hip: Plan: Patient admitted to [facility] following a fall resulting in a fletcher-prosthetic fracture of the left hip. He maintains non-weight bearing status. Has been following with Orthopedic Surgery - last seen 03/10/23. During that time was complaining of pain with motion. He had X-rays obtained which showed the fracture in good alignment. He was progressed to weight bearing of the LLE as tolerated. He is to followup with Ortho in another 6 weeks. -PT evaluation for ambulation as tolerated -LLE weight bearing with caution (8) CKD (chronic kidney disease): Plan: BUN and Cr mildly elevated from baseline on admission and now improved to baseline with gentle IV fluids -Avoid nephrotoxic agents -Renal dosing where needed -Follow BMP -Okay to restart Lasix and stop fluids (9) Ischemic cardiomyopathy: Plan: AICD in place - done in December by Dr. Mary. -Restarting Lasix as noted above -Continue metoprolol 25mg po qPM -Was discharged from [facility] on Lisinopril 2.5mg po daily - not on his current medication list. Held due to poor renal function (10) Elevated troponin: Plan: Patient denies chest pain. No acute ischemic changes Serial troponin stable at 42/41 Likely myocardial demand ischemia in the setting of hypoxia and acute illness with underlying CAD (11) COPD (chronic obstructive pulmonary disease): Plan: Chronic cough. With wheezing here. Daughter states that his O2 level will often drop at night. He does not wear CPAP or other devices. -Continue Breo Ellipta daily -Duoneb q 6 hours PRN SOB -Supplemental O2 qHS (12) Paroxysmal atrial flutter: Plan: V-paced on EKG. -Continue Amiodarone 200mg po BID for now but likely needs to be discontinued for worsening thyroid function as noted above -Continue Apixaban 2.5mg po BID -Continue metoprolol 25mg po qHS (13) Coronary artery disease: Plan: Remote history of RCA stent With myocardial demand ischemia as noted above -Continue apixaban, metoprolol, add back home aspirin which was left off his home med rec -Is statin intolerant (14) History of pulmonary embolism: Plan: Continue Eliquis (15) Hypertension: Plan: Blood pressures are controlled Continue home metoprolol Lisinopril on hold (16) PAD (peripheral artery disease): Plan: With stent in the groin, history of carotid artery stenosis Continue aspirin and is intolerant of statins (17) Constipation: Plan: Was a major issue last admission but seems to be improved Continue senna/docusate, MiraLAX as needed (18) Elevated alkaline phosphatase level: Plan: bony from hip fracture vs liver from amiodarone and/or hepatic congestion from CHF? Total bilirubin mildly elevated and has been for quite some time No abdominal pain or tenderness -Follow LFTs -No need to pursue liver imaging unless worsens or does not improve -Considering discontinuing amiodarone as above Plan Disposition-continued stay on telemetry, PT/OT consulted, will need a new authorization to return to [facility] Discussed his care with his daughter Eusebia on the phone who is a nurse Admission and Anticipated Discharge Date Admission Date: March 16, 2023 Subjective Patient significantly improved mentation this morning. He reports that the previous auditory visual hallucinations are completely resolved but he overall feels much better. He denies any abdominal pains. He is moving his bowels regularly prior to coming in here. He reports he has been mostly bedbound until just the last few days at rehab he finally is standing up and he worked on a bicycle pedaling the other day. I discussed his care with his daughter on the phone reports the Nguyễn catheter remained in place for the last month as he has great difficulty urinating into a urinal while lying in bed. He has not had a trial of void. Telemetry with V paced rhythm. Physical Exam Constitutional: WD/WN, vitals as above ENMT: Mouth: + oral mucosal abnormality (white exudate OP) Neck: trachea midline, no thyromegaly Respiratory: normal respiratory effort Auscultation: + crackles (bibasilar) and + wheezes (bilat) Cardiovascular: Rate/Rhythm: regular rate and regular rhythm Vessels: dorsalis pedis pulses present Extremities: + edema (1+ pitting edema legs bilat) Gastrointestinal (Abdomen): normal bowel sounds, soft, nontender, no hepatosplenomegaly Skin: Left plantar surface of fifth toe with laceration with scab and sutures in place Multiple scabs and small open wounds anterior legs bilaterally without surrounding erythema With chronic venous stasis color changes of the legs bilaterally Neurologic: moves all extremities and awake; no focal motor deficits Psychiatric: A+Ox3, euthymic affect Genitourinary: Nguyễn catheter in place draining clear yellow urine Results & Data Results & Data Vital Signs (Past 12 Hours) Vital Signs Pulse Pulse Resp BP BP Pulse Ox O2 Del Method 03/17/23 06:00 71 19 134/83 94 03/17/23 05:00 71 0 L 131/67 100 03/17/23 04:00 71 7 L 97 03/17/23 03:00 69 22 137/79 96 03/16/23 21:52 136/74 03/16/23 22:15 73 03/16/23 21:53 71 14 106/74 98 Nasal Cannula O2 Flow Rate 03/17/23 06:00 03/17/23 05:00 03/17/23 04:00 03/17/23 03:00 03/16/23 21:52 03/16/23 22:15 03/16/23 21:53 2 Laboratory Results CBC, CMP, TSH, CK reviewed PG Care Time/CCT Total # of Minutes Spent Total Time Spent with Patient: Total time spent is greater than 50% in coordination of care (as documented) at patient's floor/unit and/or counseling patient: Coding Level of Care Code 69851 SUB INP/OBS CARE 3/50MIN Diagnoses Acute metabolic encephalopathy G93.41 UTI (urinary tract infection) N39.0 Hypoxia R09.02 Abnormal TSH R79.89 Wound of lower extremity S81.809A Chronic combined systolic and diastolic CHF (congestive heart failure) I50.42 Fletcher-prosthetic fracture around prosthetic hip M97.8XXD; Z96.649 Encounter type: subsequent encounter CKD (chronic kidney disease) N18.9 Ischemic cardiomyopathy I25.5 Elevated troponin R77.8 COPD (chronic obstructive pulmonary disease) J44.9 COPD type: unspecified COPD Paroxysmal atrial flutter I48.92 Coronary artery disease I25.10 Associated angina: without angina Coronary Disease-Associated Artery/Lesion type: [place] artery [place] vs. transplanted heart: cowl[place] heart History of pulmonary embolism Z86.711 Hypertension I10 Hypertension type: essential hypertension PAD (peripheral artery disease) I73.9 Constipation K59.00 Elevated alkaline phosphatase level R74.8 (7) Fletcher-prosthetic fracture around prosthetic hip Encounter type: subsequent encounter Qualified Code(s): M97.8XXD - Periprosthetic fracture around other internal prosthetic joint, subsequent encounter; Z96.649 - Presence of unspecified artificial hip joint (11) COPD (chronic obstructive pulmonary disease) COPD type: unspecified COPD Qualified Code(s): J44.9 - Chronic obstructive pulmonary disease, unspecified (13) Coronary artery disease Associated angina: without angina Coronary Disease-Associated Artery/Lesion type: [place] artery [place] vs. transplanted heart: [place] heart Qualified Code(s): I25.10 - Atherosclerotic heart disease of [place] coronary artery without angina pectoris (15) Hypertension Hypertension type: essential hypertension Qualified Code(s): I10 - Essential (primary) hypertension
[2023-03-17] MEDS ORDERED: NITROGLYCERIN SL 0.4 MG/TAB TAB SL PRN (08:59)
[2023-03-17] MEDS: CHOLECALCIFEROL 1,000 UNITS 25 MCG TAB PO SCH (11:23)
[2023-03-17] MEDS: DOCUSATE SODIUM/SENNA 50/8.6MG TAB PO SCH (11:24)
[2023-03-17] MEDS: FUROSEMIDE 40 MG TAB PO SCH (11:24)
[2023-03-17] MEDS: FLUTICASONE/VILANTEROL 100/25MCG 14 PUFFS/INHALER INH SCH (11:25)
[2023-03-17] MEDS: AMIODARONE 200 MG TAB PO SCH ×2 (11:25→21:34)
[2023-03-17] MEDS: APIXABAN 2.5 MG TAB PO SCH ×2 (11:25→21:35)
[2023-03-17] MEDS: ASPIRIN 81 MG ECTAB PO SCH (11:27)
[2023-03-17] MEDS: NYSTATIN SUSP 500,000 U/5 ML UDC PO SCH ×3 (12:54→23:23)
[2023-03-17] MEDS ORDERED: DAPTOmycin 500 MG in SYRINGE 0 ML IV SCH (14:30)
--- NOTE | 2023-03-17 16:50 | Cardiology Consultation ---
Date of Consultation March 17, 2023 Assessment & Plan (1) Atrial flutter: (2) Chronic combined systolic and diastolic CHF (congestive heart failure): (3) Hypothyroidism: (4) ICD (implantable cardioverter-defibrillator), biventricular, in situ: Plan 1. Atrial flutter: This is longstanding, attempts were made to consider ablation but it is not typical flutter making ablation difficult and he has remained in it since device implantation and he remains on amiodarone. At this point options include cardioversion which could potentially be successful, but if we need to stop amiodarone the long-term success of maintaining sinus rhythm might not be good. Additionally since he has a biventricular pacemaker in place and is pacing all of the time I am not sure how important maintenance of sinus rhythm will be. There are many ways of proceeding with his arrhythmia and I think I will leave that up to Dr. Mary who has been following him closely in this regard. 2. Congestive heart failure: I believe he was in some degree of congestive heart failure (based on edema) on presentation, his device does have OptiVol measurements which give us some idea of fluid status and although it has not passed the arbitrary threshold his readings have been increasing for the last 3 weeks (with a decrease in thoracic impedance signifying pulmonary fluid). It does not differentiate cause so this could be noncardiogenic but with his history I suspect he is still somewhat fluid overloaded. Continue diuresis may be indicated watching his blood pressure and kidney function. 3. Hypothyroidism: It is certainly possible that amiodarone is contributing to hypothyroidism. The options are to stop the amiodarone and allow his thyroid function to return to normal, if we are not going to convert his rhythm to normal then I think that is a reasonable option. Alternatively we could start thyroid medications, we often do that if we want to continue amiodarone. For now I am going to stop his amiodarone, being off of it for a few days until we make this decision will really matter as far as the amiodarone level goes. 4. ICD: His ICD is working well, he is appropriately biventricular pacing virtually all the time, some of his AV block may be due to amiodarone effect as he is on minimal metoprolol. If we are going to leave him in atrial flutter we could certainly perform AV merary block by ablation, or over time we may be able to increase his beta-blockade which may also help with causing AV block. For the moment there is no need to do either of these things since he is pacing appropriately. History of Present Illness Reason for Consultation: Atrial flutter, hypothyroidism on amiodarone Attending Physician: Brook Aldrich MD History of Present Illness This is an 82-year-old male with a history of longstanding coronary disease, mitral regurgitation and cardiomyopathy. He also has a long history of atrial flutter and has been on metoprolol and amiodarone, I believe amiodarone was initiated October 01, 2022. Discussions were undertaken regarding catheter ablation of his atrial flutter, however that has not been done as evaluation demonstrated that it was not a typical isthmus dependent right atrial flutter. He is not on optimal medical therapy due to kidney disease and bradycardia. He has been having difficulty with congestive heart failure and also has bradycardia, with severe left ventricular dysfunction an ICD was implanted on January 21, 2023. He did fall around February 09, 2023 and sustained a fracture of his left hip where he had a prior prosthesis. He returns now with alteration in mental status. [facility] when he developed progressive confusion and hallucinations, felt possibly due to a urinary tract infection. He did however have pulmonary edema and vascular congestion, possibly in part due to receiving IV fluids. He also has an abnormal TSH, which may be secondary to amiodarone induced hypothyroidism. His TSH is 7.7. At the time of my evaluation he is lying supine in bed, he seems quite confused and cannot provide much history. He seems comfortable and is not complaining of shortness of breath, mostly complaining about music playing in his head and being tired. I did interrogate his ICD in the emergency room, it is functioning well and there is appropriate resynchronization pacing. No ventricular arrhythmias. He has been in a sustained atrial arrhythmias since device implantation on January 21, 2023 (and before that by history). Good battery voltage with a projected longevity of 6.6 years. Allergies Allergy/AdvReac Type Severity Reaction Status Date / Time ciprofloxacin Allergy Intermediate Rash Verified 03/16/23 20:12 warfarin Allergy Intermediate hives, rash Verified 03/16/23 20:12 niacin AdvReac Severe LEG Verified 03/16/23 20:12 [From Niaspan WEAKNESS Extended-Release] Xcwfrwu-VAO-SmQ Reductase AdvReac Severe muscle Verified 03/16/23 20:12 Inhibitor weakness,pain, [Jtwthil-Vya-Lux Reductase cramps Inhibitor] umeclidinium AdvReac Unknown "NOT Verified 03/16/23 20:12 [From Anoro Ellipta] ALLERGIC,DOES NOTHING FOR ME" vilanterol AdvReac Unknown "NOT Verified 03/16/23 20:12 [From Anoro Ellipta] ALLERGIC, DOES NOTHING FOR ME" Home Medications Medication Instructions Recorded Confirmed Type acetaminophen 325 mg tablet 650 mg PO Q6 PRN Fever Or Pain 03/16/23 03/16/23 History (Tylenol) amiodarone 200 mg tablet 200 mg PO BID 03/16/23 03/16/23 History ampicillin 500 mg capsule 500 mg PO Q12 03/16/23 03/16/23 History apixaban 2.5 mg tablet (Eliquis) 2.5 mg PO BID 03/16/23 03/16/23 History cholecalciferol (vitamin D3) 50 50 mcg PO DAILY 03/16/23 03/16/23 History mcg (2,000 unit) tablet (Vitamin D3) fluticasone furoate 100 1 inh inhalation DAILY 03/16/23 03/16/23 History mcg-vilanterol 25 mcg/dose inhalation powder (Breo Ellipta) furosemide 20 mg tablet 20 mg PO DAILY 03/16/23 03/16/23 History ipratropium 0.5 mg-albuterol 3 mg 3 ml inhalation Q6H PRN .SOB/COUGH 03/16/23 03/16/23 History (2.5 mg base)/3 mL nebulization soln melatonin 5 mg tablet 5 mg PO HS 03/16/23 03/16/23 History metoprolol succinate 25 mg 25 mg PO HS 03/16/23 03/16/23 History tablet,extended release 24 hr nitroglycerin 0.4 mg sublingual 0.4 mg sublingual DIRECTED PRN 03/16/23 03/16/23 History tablet (Nitrostat) .CHEST PAIN nystatin 100,000 unit/mL oral 5 ml PO Q6 .SORE MOUTH 03/16/23 03/16/23 History suspension potassium chloride 10 mEq 10 meq PO DAILY 03/16/23 03/16/23 History tablet,extended release sennosides 8.6 mg-docusate sodium 1 tab-cap PO DAILY 03/16/23 03/16/23 History 50 mg tablet (Senna-S) Patient History Medical History Abnormal TSH Anemia Anorectal fistula Arthritis Asthma Atrial fibrillation Carotid artery stenosis >70% NEHAL, <50% LICA Chronic kidney disease, stage 3 (moderate) COPD (chronic obstructive pulmonary disease) Coronary artery disease Remote h/o stent to RCA. Stent patent on 2005 cath per cardio. Degenerative arthritis of right knee Diabetes mellitus, type 2 Diastolic congestive heart failure Eczema Erectile dysfunction H/O difficult intubation Glidescope 2011 lap tracie History of anesthesia reaction SOMETIMES COMES OUT SWINGING History of IL (myocardial infarction) TOTAL OF 3 History of pulmonary embolism (02/2011) HX BILATERAL Hyperlipidemia Hypertension Ischemic cardiomyopathy Mitral regurgitation On anticoagulant therapy PAD (peripheral artery disease) (03/14/14) L common iliac angioplasty/stent, stenting of totally occluded R SFA, angioplasty of occluded RCF 2006. Angioplasty to R SFA in-stent stenosis 2013. PVCs (premature ventricular contractions) Restrictive lung disease Right lower lobe pulmonary nodule Noted on CT 04/03, 12mo f/u recommended. 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 Subclavian artery stenosis Vitamin D insufficiency Surgical History H/O inguinal hernia repair H/O total hip arthroplasty R/L H/O total knee replacement (09/2017) RIGHT History of cardiac cath MULTIPLE - TOTAL OF 16 STENTS - UNSURE WHEN MOST RECENT History of CEA (carotid endarterectomy) (06/01/18) R CEA w/ patch angioplasty History of hydrocelectomy History of incision and drainage (10/23/17) ischiorectal abscess Hx laparoscopic cholecystectomy S/P arterial stent (08/2006) R SFA DIRECTOR OF ARCHITECTURE and stenting S/P cataract surgery R/L S/P coronary artery stent placement (1995) RCA Status post angioplasty (2013) to R SFA in stent stenosis Status post surgery (12/15/17) placement of seton drain in transsphinteric fistula - 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 AND ALWAYS IS DRAINING Family History Mother Thyroid disease Family history of diabetes mellitus Father Coronary heart disease Emphysema of lung Family history of diabetes mellitus Uncle Family history of colon cancer Denies family history of Colon cancer Ovarian cancer Prostate cancer Myocardial infarction Breast cancer Lung cancer Colorectal cancer Social History Smoking Status: Former smoker Tobacco Type: Cigarettes Cigarettes Per Day: COUPLE TIMES A DAY TO SMOKE PIPE; Second Hand Exposure: No; Do You Dip or Chew Tobacco: No; Hx Alcohol Use: No Hx Substance Use: No Preferred Language: Icelandic Communication Ability: Effective Communication Ability Comment: PHONE INTERVIEW DONE WITH DAUGHTERSHADE PER PT REQUEST Visual Impairment: No Limitations Hearing Ability: Use of Hearing Aid Manager Agriculture Required: No Beliefs That Will Affect Care: None marital status: / Current Living Situation: Alone Current Living Situation Comment: lives alone in apartment current occupational status: retired How many Children do You have: 2 Feels Safe at Home: Yes Childhood Exposure to Second-Hand Smoke: No Diet Comment: regular caffeine: Yes (2-3 cups coffee) during the past year weight has: increased > 10 lbs Dental Care, Regularly: Yes Physical Activity Frequency: 1-2 Times per Week Seatbelt Use: always Sunscreen Use: Yes Assistive Devices: Cane and Walker Review of Systems Review of Systems: Unobtainable due to cognitive status Physical Exam Physical Exam: Constitutional: Alert, although not entirely coherent, in no obvious distress. HEENT: Unremarkable on limited exam Neck: No jugular venous distention, carotid pulses are normal and equal bilaterally without bruits. Pulmonary: Crackles bilaterally. Cardiac: Regular rhythm with no murmur, gallop or rub. Abdomen: Soft, nontender with normal bowel sounds. Extremities: Bilateral pretibial edema. Neurologic: No focal findings on limited exam. Gait could not be tested. Skin: No rash, ecchymoses or petechiae. Results & Data Vital Signs (Past 12 Hours) Vital Signs Pulse Pulse Resp BP BP Pulse Ox O2 Del Method 03/17/23 16:00 70 18 123/82 96 Nasal Cannula 03/17/23 10:00 70 18 132/71 100 Room Air 03/17/23 06:00 71 19 134/83 94 03/17/23 05:00 71 0 L 131/67 100 O2 Flow Rate 03/17/23 16:00 4 03/17/23 10:00 4 03/17/23 06:00 03/17/23 05:00 PG Care Time/CCT Total # of Minutes Spent Total Time Spent with Patient: Total time spent is greater than 50% in coordination of care (as documented) at patient's floor/unit and/or counseling patient: Coding Level of Care Code 46103 INT INP/OBS CARE 3/75MIN Diagnoses Atrial flutter I48.92 Chronic combined systolic and diastolic CHF (congestive heart failure) I50.42 Hypothyroidism E03.9 ICD (implantable cardioverter-defibrillator), biventricular, in situ Z95.810
--- NOTE | 2023-03-17 17:41 | Electrocardiogram Report ---
Test Reason : Blood Pressure : / mmHG Vent. Rate : 076 BPM Atrial Rate : 000 BPM P-R Int : 000 ms QRS Dur : 214 ms QT Int : 514 ms P-R-T Axes : 000 264 087 degrees QTc Int : 578 ms Poor data quality, interpretation may be adversely affected Ventricular-paced rhythm Atrial flutter Abnormal ECG When compared with ECG of 09-FEB-2023 23:01, Vent. rate has increased BY 6 BPM Confirmed by Cy Trejo ([id number]) on 03/17/2023 5:41:15 PM Referred By: REFERRED SELF Confirmed By:Cy Trejo
[2023-03-17] MEDS: METOPROLOL SUCC 25MG EXT REL TAB PO SCH (21:35)
[2023-03-17] MEDS: cefTRIAXone SODIUM 2,000 MG in DEXTROSE 5% 50 ML IV SCH (23:22)
[2023-03-18] MEDS: NYSTATIN SUSP 500,000 U/5 ML UDC PO SCH ×3 (05:34→18:17)
[2023-03-18] MEDS: FLUTICASONE/VILANTEROL 100/25MCG 14 PUFFS/INHALER INH SCH (08:24)
[2023-03-18] MEDS: ASPIRIN 81 MG ECTAB PO SCH (08:25)
[2023-03-18] MEDS: FUROSEMIDE 40 MG TAB PO SCH (08:25)
[2023-03-18] MEDS: CHOLECALCIFEROL 1,000 UNITS 25 MCG TAB PO SCH (08:25)
[2023-03-18] MEDS: AMIODARONE 200 MG TAB PO SCH (08:26)
[2023-03-18] MEDS: DOCUSATE SODIUM/SENNA 50/8.6MG TAB PO SCH (08:26)
[2023-03-18] MEDS: APIXABAN 2.5 MG TAB PO SCH ×2 (08:26→20:51)
--- NOTE | 2023-03-18 08:34 | Hospitalist Progress Note ---
Date of Service March 18, 2023 Assessment & Plan (1) Acute metabolic encephalopathy: Plan: 82yo male with multiple medical comorbidities [facility] with progressive confusion, auditory and visual hallucinations. Delirium likely secondary to UTI. Workup otherwise with mild elevation of WBC=11.4. Electrolytes normal with exception of mild hyponatremia Kd=772. BUN=43, Cr=2.75 which is slightly increased from baseline. Ammonia normal. TSH mildly elevated at 7 but would not likely cause this degree of delirium. CT Head with no acute issue. Now completely resolved with treatment with IV antibiotics for UTI-on 03/17 is AAO x3 and able to recall numerous details of his recent history including his delirium/hallucination findings he voiced to staff at rehab -Continue treatment for UTI -Delirium prevention strategies with frequent orientation, maintenance of sleep/wake cycles when able. Patient would benefit from undisturbed sleep, no PM vital signs if they are stable. Avoidance of potential delirium-inducing agents -Maintain fall precautions -Melatonin qHS as needed insomnia (2) UTI (urinary tract infection): Plan: Nguyễn catheter associated UTI Urine culture from [facility] with E. coli, Proteus and Enterococcus. Obtained records from [facility]-E. coli pansensitive, Proteus resistant to ampicillin and cefazolin, as well as tetracycline, and Enterococcus resistant to tetracycline Patient with Nguyễn catheter in place since his fall in January. Nguyễn was changed x 2, most recently here in the ER 03/16/23. No history of multi-drug resistant organisms per our records. Nguyễn catheter remains in place as patient was mostly bedbound and unable to urinate from a lying position as per his daughter Urinalysis here with 3+ blood but no evidence of infection likely as he has been partially treated at least for the E. coli with 1 dose of Rocephin and p.o. Keflex prior to admission -Recommend trial of void prior to discharge now that he is able to bear weight as tolerated as per orthopedics with his left hip fracture PATIENT REPORTS HAVING DIFFICULTY STANDING TO BEAR WEIGHT/WEAKNESS IN HIS LEGS YESTERDAY 2ND TO UTI -- HOLDING OFF REMOVAL FOR NOW, HOWEVER DID DISCUSS IF IMPROVING IN WEIGHT BEARING/STANDING WOULD REC DISCONTINUING TO PREVENT REPEAT INFECTION Zosyn IV on admit w/ clinical improvement, however based on sensitivities, this is not going to cover for the Proteus and Zosyn is not recommended for treatment of Enterococcus D/c Zosyn, placed on Ceftriaxone (cover for Ecoli/Proteus), Dapto for coverage enteroccocus. MRSA nasal NEGATIVE (no need to be on Vanco for pulm coverage for PNA on Xray) BLood cultures -- NGTD -- monitor CK w/o significant elevation (3) Hypoxia: Plan: With pulmonary edema and pulmonary vascular congestion with possible pneumonia seen on chest x-ray. With delirium likely more from UTI, but does have some cough and wheeze but also with chronic lung disease Zosyn would also cover for pneumonia but now switched to ceftriaxone, MRSA nares NEGATIVE Supplemental O2 as needed -- currently 94% IVF stopped as provided on admission, home lasix 40mg PO daily restarted 03/17 with improvement and will continue Continue home COPD inhalers Repeat CXR Slight improvement in interstitial thickening and patchy bilateral opacities. The findings favor improving pulmonary edema. An infectious process could appear similar although is considered less likely. Continued radiographic follow-up is recommended. Follow cxr to resolution (4) Abnormal TSH: Plan: TSH continues to trend upward since November, now up to 7.7 with normal free T4 Most likely secondary to amiodarone therapy Consulted cardiology to discuss weaning off amiodarone and potentially starting another antiarrhythmic versus rate control strategy? Dr Trejo saw last evening, rec possible stopping amiodarone but consideration for cardioversion to be considered and Dr Mary to see today -Follow TSH and if continues to worsen , may require thyroid replacement Messaged Dr Mary, and he plans to reduce amiodarone to 200mg daily, make NPO at midnight for cardioversion tomorrow, will start 25mcg Synthroid for AM while on continued therapy (5) Wound of lower extremity: Plan: Secondary to recent fall with sutures under left fifth toe and multiple small wounds on legs Consulted wound care while inpatient confirming timing w/ family but discussed will plan to remove tomorrow (6) Chronic combined systolic and diastolic CHF (congestive heart failure): Plan: Acute on chronic combined systolic and diastolic CHF Most recent EF 30-35% with wall motion abnormalities, also with right heart failure, moderate-severe MR, and mild AI in 11/2022 With lower extremity edema here that he states is his chronic amount, wheezing and crackles on examination and chest x-ray consistent with pulmonary edema Stopped IV fluids started on admission, restarted his lasix 40mg PO daily Remains on Toprol XL No longer on lisinopril -- w/ KENNEY, will hold for now (? if dc at [facility]) -- if renal function stable again on AM labs could consider resuming Not on entresto/SGLT2/spironolactone due to renal failure per CHF notes IMPROVING Monitor weights/I&Os (7) Anabel-prosthetic fracture around prosthetic hip: Plan: Patient admitted to [facility] following a fall resulting in a anabel-prosthetic fracture of the left hip. He maintains non-weight bearing status. Has been following with Orthopedic Surgery - last seen 03/10/23. During that time was complaining of pain with motion. He had X-rays obtained which showed the fracture in good alignment. He was progressed to weight bearing of the LLE as tolerated. PT evaluation for ambulation as tolerated LLE weight bearing with caution Voiding trial to be attempted if improvement w/ ambulation/strength w/ treatment of infection He is to followup with Ortho in another 6 weeks. 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 Mary. Restarting Lasix as noted above Continue metoprolol 25mg po qPM Was discharged from [facility] on Lisinopril 2.5mg po daily - not on his current medication list. Held due to poor renal function -- consider resuming if renal function remains stable on repeat labs (10) Elevated troponin: Plan: Patient denies chest pain. No acute ischemic changes Serial troponin stable at 42/41 Likely myocardial demand ischemia in the setting of hypoxia and acute illness with underlying CAD (11) COPD (chronic obstructive pulmonary disease): Plan: Chronic cough. With wheezing here. Daughter states that his O2 level will often drop at night. He does not wear CPAP or other devices. -Continue Breo Ellipta daily -Duoneb q 6 hours PRN SOB -Supplemental O2 qHS (12) Paroxysmal atrial flutter: Plan: V-paced on EKG. -Continue Amiodarone 200mg po BID for now but likely needs to be discontinued for worsening thyroid function as noted above --> planning to be reduced to 200mg daily per Dr Mary/cardioversion for AM/NPO at midnight -Continue Apixaban 2.5mg po BID -Continue metoprolol 25mg po qHS (13) Coronary artery disease: Plan: Remote history of RCA stent With myocardial demand ischemia as noted above -Continue apixaban, metoprolol. Aspirin added back 03/17 which was not on his home med rec. Noting patient statin intolerant (14) History of pulmonary embolism: Plan: Continue Eliquis (15) Hypertension: Plan: Blood pressures are controlled Continue home metoprolol Lisinopril on hold -- consider resuming if renal function stable in AM but will need to monitor for any hypotension (16) PAD (peripheral artery disease): Plan: With stent in the groin, history of carotid artery stenosis Continue aspirin and is intolerant of statins (17) Constipation: Plan: Was a major issue last admission but seems to be improved Continue senna/docusate, MiraLAX as needed (18) Elevated alkaline phosphatase level: Plan: bony from hip fracture vs liver from amiodarone and/or hepatic congestion from CHF? Total bilirubin mildly elevated and has been for quite some time No abdominal pain or tenderness, no need for abdominal imaging at present Repeat LFTs w/ TB normalized, ALP 128--> 113 (likely due to hepatic congestion) -- monitor repeat w/ continued lasix Reducing amio as above, cardioversion for AM Plan Disposition-continued stay on telemetry, PT/OT consulted, will need a new authorization to return to [facility] Discussed his care with his daughter Eusebia on the phone who is a nurse 03/17. Will call this evening for update as well. His other daughter Kelly works in Case Management (off today, has multiple appts per patient) Admission and Anticipated Discharge Date Admission Date: March 17, 2023 Supervising Physician Co-Signing Physician Notes The patient was not seen by me. The chart was reviewed. Case discussed with GABBY Levi. Agree with assessment and plan Subjective eval this afternoon, doing alright. Improved. mentation stable, aware of his episode last week/visual hallucinations. Denies any repeat. Discussed voiding trial eventually - he states was weak w/ standing with PT and worried about not being able to urinate himself and prefers to keep this in place. Discussed will keep until mobility improved but once enough to stand/urinate would stress importance to trial discontinuation to prevent recurrent infection. Will take out sutures to his left toe tomorrow after confirming timing for placement. Nontender/no drainage on exam Questions/concerns addressed at this time. Physical Exam Physical Exam: General: WD/WN chronically ill appearing male, sitting up in bed, NAD, +occassional wet cough HEENT: head normocephalic, atraumatic, white exudate OP, trachea midline Resp: faint bilateral wheezing, diminished in the bases/associated crackles, on room air, +cough, no tachypnea CV: paced on prior EKG -- appears regular, rates in 70s, no significant m/r/g, 1+ bilateral edema (reports slightly improved) GI: +BS, soft/NT MSK/Neuro: some pain w/ ROM LEFT hip, no active hematoma/bleeding/lesions does still have several sutures to his LEFT foot, 5th digit, no active drainage (planning removal tomorrow after confirming timing of placement with family) Psych: AOx3, cooperative with exam Results & Data Results & Data Vital Signs (Past 12 Hours) Vital Signs Temp Pulse Resp BP Pulse Ox O2 Del Method O2 Flow Rate 03/18/23 07:54 Room Air 03/18/23 07:22 36.6 C 79 16 118/67 94 Room Air 03/17/23 20:47 Nasal Cannula 2 03/17/23 20:42 36.4 C L 73 16 123/69 98 Nasal Cannula 2 03/17/23 20:42 Nasal Cannula 2 03/17/23 20:42 36.4 C L 73 16 123/69 98 Room Air Laboratory Results 03/18/23 03/18/23 03/17/23 Range/Units 09:55 09:55 Unknown WBC 10.56 (4.8-10.8) K/ul RBC 4.48 L (4.70-6.10) M/uL Hgb 14.1 (14.0-18.0) g/dl Hct 43.0 (42.0-52.0) % MCV 96.0 (80.0-100.0) fL MCH 31.5 (25.0-34.0) pg MCHC 32.8 (32.0-36.0) g/dL RDW Std Deviation 53.4 H (36.4-46.3) fL RDW Coeff of Anton 15.2 H (11.5-14.5) % Plt Count 224 (130-400) K/uL MPV 9.3 L (9.4-12.4) fL Immature Gran % (Auto) 0.5 % Neut % (Auto) 82.9 % Lymph % (Auto) 5.6 % [place] % (Auto) 9.1 % Eos % (Auto) 1.3 % Baso % (Auto) 0.6 % Neut # (Auto) 8.76 H (1.40-6.50) K/uL Lymph # (Auto) 0.59 L (1.20-3.40) K/uL [place] # (Auto) 0.96 H (0.11-0.59) K/uL Eos # (Auto) 0.14 (0.00-0.50) K/uL Baso # (Auto) 0.06 (0.00-0.20) K/uL Immature Gran # (Auto) 0.05 (0.01-0.20) K/uL Sodium 137 (136-145) mmol/L Potassium 4.3 (3.5-5.1) mmol/L Chloride 104 (98-107) mmol/L Carbon Dioxide 26 (21-32) mmol/L Anion Gap 7 (3-11) BUN 38 H (6-23) mg/dl Creatinine 2.44 H (0.6-1.4) mg/dl Est Cr Clr Drug Dosing 27.0 ml/min Est GFR ( Amer) 27.1 ml/min Est GFR (Non-Af Amer) 23.4 ml/min BUN/Creatinine Ratio 15.6 (10-20) Glucose 156 H (70-99(Fasting)) mg/dl POC Glucose (70-99) mg/dl Calcium 8.5 L (8.6-10.3) mg/dl Magnesium 1.9 (1.7-2.4) mg/dl Total Bilirubin 1.0 (0.2-1.0) mg/dl AST 13 (13-39) U/L ALT 8 (7-52) U/L Alkaline Phosphatase 113 H (34-104) U/L Total Creatine Kinase 32 (30-223) U/L Total Protein 6.4 (6.0-8.3) gm/dl Albumin 3.1 L (3.4-5.0) gm/dl Globulin 3.3 (2.5-4.0) gm/dl Albumin/Globulin Ratio 0.9 (0.9-2) Nasal Screen MRSA (PCR) Negative (Negative) 03/17/23 Range/Units 20:46 WBC (4.8-10.8) K/ul RBC (4.70-6.10) M/uL Hgb (14.0-18.0) g/dl Hct (42.0-52.0) % MCV (80.0-100.0) fL MCH (25.0-34.0) pg MCHC (32.0-36.0) g/dL RDW Std Deviation (36.4-46.3) fL RDW Coeff of Anton (11.5-14.5) % Plt Count (130-400) K/uL MPV (9.4-12.4) fL Immature Gran % (Auto) % Neut % (Auto) % Lymph % (Auto) % [place] % (Auto) % Eos % (Auto) % Baso % (Auto) % Neut # (Auto) (1.40-6.50) K/uL Lymph # (Auto) (1.20-3.40) K/uL [place] # (Auto) (0.11-0.59) K/uL Eos # (Auto) (0.00-0.50) K/uL Baso # (Auto) (0.00-0.20) K/uL Immature Gran # (Auto) (0.01-0.20) K/uL Sodium (136-145) mmol/L Potassium (3.5-5.1) mmol/L Chloride (98-107) mmol/L Carbon Dioxide (21-32) mmol/L Anion Gap (3-11) BUN (6-23) mg/dl Creatinine (0.6-1.4) mg/dl Est Cr Clr Drug Dosing ml/min Est GFR ( Amer) ml/min Est GFR (Non-Af Amer) ml/min BUN/Creatinine Ratio (10-20) Glucose (70-99(Fasting)) mg/dl POC Glucose 104 H (70-99) mg/dl Calcium (8.6-10.3) mg/dl Magnesium (1.7-2.4) mg/dl Total Bilirubin (0.2-1.0) mg/dl AST (13-39) U/L ALT (7-52) U/L Alkaline Phosphatase (34-104) U/L Total Creatine Kinase (30-223) U/L Total Protein (6.0-8.3) gm/dl Albumin (3.4-5.0) gm/dl Globulin (2.5-4.0) gm/dl Albumin/Globulin Ratio (0.9-2) Nasal Screen MRSA (PCR) (Negative) Diagnostic Findings Chest X-Ray 03/18/23 08:31 XR chest 1V portable CLINICAL HISTORY: follow up pulmonary edema/congestion COMPARISON STUDY: Chest CT April 03, 2018. Chest radiograph March 16, 2023. FINDINGS: Left subclavian pacer/AICD is in place. Cardiomegaly is unchanged. Calcified pleural plaques are again noted. Interstitial thickening and patchy bilateral opacities have slightly improved. IMPRESSION: Slight improvement in interstitial thickening and patchy bilateral opacities. The findings favor improving pulmonary edema. An infectious process could appear similar although is considered less likely. Continued radiographic follow-up is recommended. ACT 112: Negative or not required by law. Electronically signed by: Prashanth Osorio M.D. 03/18/2023 11:54 AM PG Care Time/CCT Total # of Minutes Spent Total Time Spent with Patient: Total time spent is greater than 50% in coordination of care (as documented) at patient's floor/unit and/or counseling patient: Coding Level of Care Code 96811 SUB INP/OBS CARE 3/50MIN Diagnoses Acute metabolic encephalopathy G93.41 UTI (urinary tract infection) N39.0 Hypoxia R09.02 Abnormal TSH R79.89 Wound of lower extremity S81.809A Chronic combined systolic and diastolic CHF (congestive heart failure) I50.42 Anabel-prosthetic fracture around prosthetic hip M97.8XXD; Z96.649 Encounter type: subsequent encounter CKD (chronic kidney disease) N18.9 Ischemic cardiomyopathy I25.5 Elevated troponin R77.8 COPD (chronic obstructive pulmonary disease) J44.9 COPD type: unspecified COPD Paroxysmal atrial flutter I48.92 Coronary artery disease I25.10 Associated angina: without angina Coronary Disease-Associated Artery/Lesion type: iroquois artery [place] vs. transplanted heart: iroquois heart History of pulmonary embolism Z86.711 Hypertension I10 Hypertension type: essential hypertension PAD (peripheral artery disease) I73.9 Constipation K59.00 Elevated alkaline phosphatase level R74.8 (7) Anabel-prosthetic fracture around prosthetic hip Encounter type: subsequent encounter Qualified Code(s): M97.8XXD - Periprosthetic fracture around other internal prosthetic joint, subsequent encounter; Z96.649 - Presence of unspecified artificial hip joint (11) COPD (chronic obstructive pulmonary disease) COPD type: unspecified COPD Qualified Code(s): J44.9 - Chronic obstructive pulmonary disease, unspecified (13) Coronary artery disease Associated angina: without angina Coronary Disease-Associated Artery/Lesion type: iroquois artery [place] vs. transplanted heart: iroquois heart Qualified Code(s): I25.10 - Atherosclerotic heart disease of iroquois coronary artery without angina pectoris (15) Hypertension Hypertension type: essential hypertension Qualified Code(s): I10 - Essential (primary) hypertension
[2023-03-18 10:34] LABS: Basophils # (auto) 0.06 K/uL (0.00-0.20); Basophils % (auto) 0.6 %; Eosinophils # (auto) 0.14 K/uL (0.00-0.50); Eosinophils % (auto) 1.3 %; Hemoglobin 14.1 g/dl (14.0-18.0); Immature Granulocytes # (auto) 0.05 K/uL (0.01-0.20); Immature Granulocytes % (auto) 0.5 %; Lymphocytes # (auto) 0.59 K/uL (1.20-3.40); Lymphocytes % (auto) 5.6 %; Mean Corpuscular Hemoglobin 31.5 pg (25.0-34.0); Mean Corpuscular Hgb Conc 32.8 g/dL (32.0-36.0); Mean Platelet Volume 9.3 fL (9.4-12.4); Monocytes # (auto) 0.96 K/uL (0.11-0.59); Monocytes % (auto) 9.1 %; Neutrophils # (auto) 8.76 K/uL (1.40-6.50); Neutrophils % (auto) 82.9 %; Platelet Count 224 K/uL (130-400); RDW Coefficient of Variation 15.2 % (11.5-14.5); RDW Standard Deviation 53.4 fL (36.4-46.3); Red Blood Count 4.48 M/uL (4.70-6.10); White Blood Count 10.56 K/ul (4.8-10.8)
[2023-03-18 11:11] LABS: Albumin Globulin Ratio 0.9 (0.9-2); Albumin Level 3.1 gm/dl (3.4-5.0); BUN Creatinine Ratio 15.6 (10-20); Calcium 8.5 mg/dl (8.6-10.3); Est GFR (African American) 27.1 ml/min; Est GFR (Non-African American) 23.4 ml/min; Globulin 3.3 gm/dl (2.5-4.0); Magnesium 1.9 mg/dl (1.7-2.4); Potassium 4.3 mmol/L (3.5-5.1); Total Protein 6.4 gm/dl (6.0-8.3)
--- NOTE | 2023-03-18 11:55 | XRay Report ---
XR chest 1V portable CLINICAL HISTORY: follow up pulmonary edema/congestion COMPARISON STUDY: Chest CT April 03, 2018. Chest radiograph March 16, 2023. FINDINGS: Left subclavian pacer/AICD is in place. Cardiomegaly is unchanged. Calcified pleural plaque s are again noted. Interstitial thickening and patchy bilateral opacities have slightly improved. IMPRESSION: Slight improvement in interstitial thickening and patchy bilateral opacities. The findin gs favor improving pulmonary edema. An infectious process could appear similar although is considered less likely. Continued radiographic follow-up is recommended. ACT 112: Negative or not required by law. Electronically signed by: Prashanth Osorio M.D. 03/18/2023 11:54 AM
--- NOTE | 2023-03-18 15:10 | Cardiology Progress Note ---
Date of Service March 18, 2023 Assessment & Plan (1) Atrial flutter: (2) Chronic combined systolic and diastolic CHF (congestive heart failure): (3) Hypothyroidism: (4) ICD (implantable cardioverter-defibrillator), biventricular, in situ: Plan 1. Atrial flutter: I think we will perform a cardioversion tomorrow. We will continue him on amiodarone. We will see if this improves any symptoms, LV function or recurrences of pulmonary vascular congestion. I will lower his amio darone to 200 mg daily. We will continue him on reduced dose apixaban. 2. Congestive heart failure: He seems euvolemic today. Lung examination was benign. No complaints of dyspnea. Unfortunately, due to his hip fracture he is not very mobile. We will continue his metoprolol. He is not a good candidate for other interventions due to his renal dysfunction. 3. Hypothyroidism: Continue amiodarone. Low-dose levothyroxine ordered. 4. ICD: Normal function with good pacing percentage. Admission and Anticipated Discharge Date Admission Date: March 17, 2023 Subjective This afternoon the patient clinically feeling good. He did not report any significant breathing difficulty. There was an attempt by physical therapy to have him ambulate, but he states he was not able to due to pain in the left hip. Review of Systems Review of Systems: Per HPI Physical Exam Physical Exam: The patient is alert and oriented. Mood and affect appeared normal. He answered all questions appropriately. HEENT: Pupils are equal and reactive to light and accommodation. Extraocular movements are intact. The sclerae are anicteric. Neuro: Cranial nerves intact Lungs: Clear to auscultation bilaterally. He has good air movement without use of accessory muscles. Some expiratory wheezing. Bronchial breath sounds on the right. Cardiac: Heart demonstrates a regular rate and rhythm. Pulses: The patient has palpable radial pulses bilaterally that are equal in intensity Extremities: There was no evidence of hypoperfusion. There is no cyanosis or clubbing. Skin: I did not appreciate any rashes on examination today. Several bandaged ulcerations and excoriations Results & Data Vital Signs (Past 12 Hours) Vital Signs Temp Pulse Resp BP Pulse Ox O2 Del Method 03/18/23 14:18 77 16 105/65 94 Room Air 03/18/23 07:54 Room Air 03/18/23 07:22 36.6 C 79 16 118/67 94 Room Air Laboratory Results Abnormal Lab Results 03/17/23 03/17/23 03/18/23 20:46 Unknown 09:55 WBC 10.56 RBC 4.48 L Hgb 14.1 Hct 43.0 MCV 96.0 MCH 31.5 MCHC 32.8 RDW Std Deviation 53.4 H RDW Coeff of Anton 15.2 H Plt Count 224 MPV 9.3 L Immature Gran % (Auto) 0.5 Neut % (Auto) 82.9 Lymph % (Auto) 5.6 [place] % (Auto) 9.1 Eos % (Auto) 1.3 Baso % (Auto) 0.6 Neut # (Auto) 8.76 H Lymph # (Auto) 0.59 L [place] # (Auto) 0.96 H Eos # (Auto) 0.14 Baso # (Auto) 0.06 Immature Gran # (Auto) 0.05 Sodium Potassium Chloride Carbon Dioxide Anion Gap BUN Creatinine Est Cr Clr Drug Dosing Est GFR ( Amer) Est GFR (Non-Af Amer) BUN/Creatinine Ratio Glucose POC Glucose 104 H Calcium Magnesium Total Bilirubin AST ALT Alkaline Phosphatase Total Creatine Kinase Total Protein Albumin Globulin Albumin/Globulin Ratio Nasal Screen MRSA (PCR) Negative 03/18/23 09:55 WBC RBC Hgb Hct MCV MCH MCHC RDW Std Deviation RDW Coeff of Anton Plt Count MPV Immature Gran % (Auto) Neut % (Auto) Lymph % (Auto) [place] % (Auto) Eos % (Auto) Baso % (Auto) Neut # (Auto) Lymph # (Auto) [place] # (Auto) Eos # (Auto) Baso # (Auto) Immature Gran # (Auto) Sodium 137 Potassium 4.3 Chloride 104 Carbon Dioxide 26 Anion Gap 7 BUN 38 H Creatinine 2.44 H Est Cr Clr Drug Dosing 27.0 Est GFR ( Amer) 27.1 Est GFR (Non-Af Amer) 23.4 BUN/Creatinine Ratio 15.6 Glucose 156 H POC Glucose Calcium 8.5 L Magnesium 1.9 Total Bilirubin 1.0 AST 13 ALT 8 Alkaline Phosphatase 113 H Total Creatine Kinase 32 Total Protein 6.4 Albumin 3.1 L Globulin 3.3 Albumin/Globulin Ratio 0.9 Nasal Screen MRSA (PCR) PG Care Time/CCT Total # of Minutes Spent Total Time Spent with Patient: Total time spent is greater than 50% in coordination of care (as documented) at patient's floor/unit and/or counseling patient: Coding Level of Care Code 19461 SUB INP/OBS CARE 235MIN Diagnoses Atrial flutter I48.92 Chronic combined systolic and diastolic CHF (congestive heart failure) I50.42 Hypothyroidism E03.9 ICD (implantable cardioverter-defibrillator), biventricular, in situ Z95.810
[2023-03-18] MEDS: METOPROLOL SUCC 25MG EXT REL TAB PO SCH (20:51)
[2023-03-18] MEDS: cefTRIAXone SODIUM 2,000 MG in DEXTROSE 5% 50 ML IV SCH (21:39)
[2023-03-19] MEDS: NYSTATIN SUSP 500,000 U/5 ML UDC PO SCH ×4 (01:26→16:52)
[2023-03-19] MEDS: LEVOTHYROXINE SODIUM 25 MCG TABLET PO SCH (06:04)
[2023-03-19] MEDS ORDERED: PROPOFOL IV EMULSION 10 MG/ML 20 ML VIAL IV ONE (07:05)
[2023-03-19] MEDS ORDERED: LIDOCAINE 2% 2 ML VIAL/AMP(20MG/ML) INFIL ONE (07:05)
--- NOTE | 2023-03-19 07:28 | Anesthesiology Consultation ---
Date of Service March 19, 2023 Assessment & Plan Chart Review Chart Review: Acceptable Risk for Surgery Consults Requested none ASA ASA4 Proposed Anesthesia Anesthesia Type: MAC Risk / Benefits Reviewed With: PT / POA / Parent / Guardian, Accepts Plan and Informed Consent Obtained History Surgery Operation Date: 03/19/23 07:15 Proposed Procedures p Cardioversion Assembly Line Supervisor w/Anesthesia - Yuri Mary MD Height/Weight Height: 5 ft 10 in Weight: 102.5 kg Allergies Allergy/AdvReac Type Severity Reaction Status Date / Time ciprofloxacin Allergy Intermediate Rash Verified 03/16/23 20:12 warfarin Allergy Intermediate hives, rash Verified 03/16/23 20:12 niacin AdvReac Severe LEG Verified 03/16/23 20:12 [From Niaspan WEAKNESS Extended-Release] Gdhoauw-TGE-FyG Reductase AdvReac Severe muscle Verified 03/16/23 20:12 Inhibitor weakness,pain, [[id number]-Rpu Reductase cramps Inhibitor] umeclidinium AdvReac Unknown "NOT Verified 03/16/23 20:12 [From Anoro Ellipta] ALLERGIC,DOES NOTHING FOR ME" vilanterol AdvReac Unknown "NOT Verified 03/16/23 20:12 [From Anoro Ellipta] ALLERGIC, DOES NOTHING FOR ME" Medications Home Medications Medication Instructions Recorded Confirmed Last Taken acetaminophen 325 mg tablet 650 mg PO Q6 PRN Fever Or Pain 03/16/23 03/16/23 Unknown (Tylenol) amiodarone 200 mg tablet 200 mg PO BID 03/16/23 03/16/23 03/16/23 09:00 ampicillin 500 mg capsule 500 mg PO Q12 03/16/23 03/16/23 Unknown apixaban 2.5 mg tablet (Eliquis) 2.5 mg PO BID 03/16/23 03/16/23 03/16/23 09:00 cholecalciferol (vitamin D3) 50 50 mcg PO DAILY 03/16/23 03/16/23 03/16/23 09:00 mcg (2,000 unit) tablet (Vitamin D3) fluticasone furoate 100 1 inh inhalation DAILY 03/16/23 03/16/23 03/16/23 09:00 mcg-vilanterol 25 mcg/dose inhalation powder (Breo Ellipta) furosemide 20 mg tablet 20 mg PO DAILY 03/16/23 03/16/2323 09:00 ipratropium 0.5 mg-albuterol 3 mg 3 ml inhalation Q6H PRN .SOB/COUGH 03/16/23 03/16/23 Unknown (2.5 mg base)/3 mL nebulization soln melatonin 5 mg tablet 5 mg PO HS 03/16/23 03/16/23 Unknown metoprolol succinate 25 mg 25 mg PO HS 03/16/23 03/16/23 Unknown tablet,extended release 24 hr nitroglycerin 0.4 mg sublingual 0.4 mg sublingual DIRECTED PRN 03/16/23 Unknown tablet (Nitrostat) .CHEST PAIN nystatin 100,000 unit/mL oral 5 ml PO Q6 .SORE MOUTH 03/16/23 03/16/23 03/16/23 13:00 suspension potassium chloride 10 mEq 10 meq PO DAILY 03/16/23 03/16/23 03/16/23 09:00 tablet,extended release sennosides 8.6 mg-docusate sodium 1 tab-cap PO DAILY 03/16/23 03/16/23 03/16/23 08:00 50 mg tablet (Senna-S) Active Medications Generic Name Dose Route Start Last Admin Trade Name Freq PRN Reason Stop Dose Admin Acetaminophen 650 mg 03/16/23 21:55 03/19/23 02:40 Acetaminophen 325 Mg Tab PO 04/15/23 21:54 650 mg Q4H PRN Administration pain/fever Apixaban 2.5 mg 03/17/23 09:00 03/18/23 20:51 Apixaban 2.5 Mg Tab PO 04/16/23 08:59 2.5 mg BID MARIO Administration Aspirin 81 mg 03/17/23 09:15 03/18/23 08:25 Aspirin 81 Mg Ectab PO 04/16/23 09:14 81 mg QAM MARIO Administration Fluticasone/Vilanterol 1 puffs 03/17/23 09:00 03/18/23 08:24 Fluticasone/Vilanterol 100/25mcg 14 Puffs/Inhaler INH 04/16/23 08:59 1 puffs DAILY MARIO Administration Furosemide 40 mg 03/17/23 09:00 03/18/23 08:25 Furosemide 40 Mg Tab PO 09/22/23 08:59 40 mg DAILY MARIO Administration Ceftriaxone Sodium 2,000 mg/ 70 mls @ 100 mls/hr 03/17/23 14:30 03/18/23 23:20 Dextrose IV 03/27/23 14:29 Infused Q24H MARIO Infusion Protocol Levothyroxine Sodium 25 mcg 03/19/23 06:30 03/19/23 06:04 Levothyroxine Sodium 25 Mcg Tablet PO 04/18/23 06:29 25 mcg DAILYBB MARIO Administration Metoprolol Succinate 25 mg 03/17/23 21:00 03/18/23 20:51 Metoprolol Succ 25mg Ext Rel Tab PO 04/16/23 20:59 25 mg HS MARIO Administration Nystatin 5 ml 03/17/23 12:00 03/19/23 06:04 Nystatin Susp 500,000 U/5 Ml Udc PO 03/24/23 11:59 5 ml Q6 MARIO Administration Senna/Docusate Sodium 1 tab 03/17/23 09:00 03/18/23 08:26 Docusate Sodium/Senna 50/8.6mg Tab PO 04/16/23 08:59 1 tab DAILY MARIO Administration Vitamin D 2,000 units 03/17/23 09:00 03/18/23 08:25 Cholecalciferol 1,000 Units 25 Mcg Tab PO 04/16/23 08:59 2,000 units DAILY MARIO Administration NPO Date Last Intake of Fluids: 03/18/23 Time Last Intake of Fluids: 17:30 Date Last Intake of Solids: 03/18/23 Time Last Intake of Solids: 17:30 Past Medical History Medical History Abnormal TSH Anemia Anorectal fistula Arthritis Asthma Atrial fibrillation Carotid artery stenosis >70% NEHAL, <50% LICA Chronic kidney disease, stage 3 (moderate) COPD (chronic obstructive pulmonary disease) Coronary artery disease Remote h/o stent to RCA. Stent patent on 2005 cath per cardio. Degenerative arthritis of right knee Diabetes mellitus, type 2 Diastolic congestive heart failure Eczema Erectile dysfunction H/O difficult intubation Glidescope 2011 lap tracie History of anesthesia reaction SOMETIMES COMES OUT SWINGING History of [place] (myocardial infarction) TOTAL OF 3 History of pulmonary embolism (02/2011) HX BILATERAL Hyperlipidemia Hypertension Ischemic cardiomyopathy Mitral regurgitation On anticoagulant therapy PAD (peripheral artery disease) (03/14/14) L common iliac angioplasty/stent, stenting of totally occluded R SFA, angioplasty of occluded RCF 2006. Angioplasty to R SFA in-stent stenosis 2013. PVCs (premature ventricular contractions) Restrictive lung disease Right lower lobe pulmonary nodule Noted on CT 04/03, 12mo f/u recommended. 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 Subclavian artery stenosis Vitamin D insufficiency Exercise / Class Metabolic Activity III < 4 Walking/Shop/Light housework Past Family History Family History Mother Thyroid disease Family history of diabetes mellitus Father Coronary heart disease Emphysema of lung Family history of diabetes mellitus Uncle Family history of colon cancer Denies family history of Colon cancer Ovarian cancer Prostate cancer Myocardial infarction Breast cancer Lung cancer Colorectal cancer Past Surgical History Surgical History H/O inguinal hernia repair H/O total hip arthroplasty R/L H/O total knee replacement (09/2017) RIGHT History of cardiac cath MULTIPLE - TOTAL OF 16 STENTS - UNSURE WHEN MOST RECENT History of CEA (carotid endarterectomy) (06/01/18) R CEA w/ patch angioplasty History of hydrocelectomy History of incision and drainage (10/23/17) ischiorectal abscess Hx laparoscopic cholecystectomy S/P arterial stent (08/2006) R SFA DENTURE WAXER and stenting S/P cataract surgery R/L S/P coronary artery stent placement (1995) RCA Status post angioplasty (2013) to R SFA in stent stenosis Status post surgery (12/15/17) placement of seton drain in transsphinteric fistula - 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 Do You Dip or Chew Tobacco: No Hx Alcohol Use: No Hx Substance Use: No substance use type: does not use Review of Systems ROS Unobtainable: All systems reviewed & are unremarkable except as noted in HPI & below Physical Exam Vital Signs Last Vital Signs Temp 36.4 C L 03/18/23 20:46 Pulse 71 03/18/23 20:46 Resp 20 03/18/23 20:46 BP 119/65 03/18/23 20:46 Pulse Ox 93 03/18/23 20:46 O2 Del Method Room Air 03/18/23 20:46 O2 Flow Rate 2 03/17/23 20:47 Constitutional no acute distress ENMT Mouth: + edentulous (upper) Mallampati Class: III Neck normal visual inspection and trachea midline Respiratory normal respiratory effort Auscultation: + lungs not clear to auscultation (expiratory wheezes present bilaterally) Cardiovascular Rate/Rhythm: regular rate; + abnormal rhythm (a-flutter) Chest (Breasts) Chest: + pacemaker Musculoskeletal Spine: normal cervical ROM Neurologic moves all extremities Psychiatric Orientation: alert and oriented x 3 Testing Laboratory Results 03/18/23 09:55 03/18/23 09:55 PT 12.9 Seconds (9.0-12.0) H 03/16/23 18:23 INR 1.2 (0.9-1.1) H 03/16/23 18:23 Urine Color Yellow 03/16/23 21:04 Urine Appearance Clear (Clear) 03/16/23 21:04 Urine pH 5.0 (4.5-7.5) 03/16/23 21:04 Ur Specific [place] 1.018 (1.000-1.030) 03/16/23 21:04 Urine Protein Trace (Negative) H 03/16/23 21:04 Urine Glucose (UA) Negative (Negative) 03/16/23 21:04 Urine Ketones Negative (Negative) 03/16/23 21:04 Urine Nitrite Negative (Negative) 03/16/23 21:04 Ur Leukocyte Esterase Negative (Negative) 03/16/23 21:04 Urine WBC (Auto) 1-5 /hpf (0-5) 03/16/23 21:04 Urine RBC (Auto) >30 /hpf (0-4) H 03/16/23 21:04 U Hyaline Cast (Auto) 1-5 /lpf (0-5) 03/16/23 21:04 U Epithel Cells (Auto) >30 /lpf (0-5) H 03/16/23 21:04 Urine Bacteria (Auto) Negative (Negative) 03/16/23 21:04 03/16/23 18:34 Aerobic Blood Culture - Preliminary Blood No growth in Aerobic bottle after 48 hours. Anaerobic Blood Culture - Final 03/16/23 18:23 Aerobic Blood Culture - Preliminary Blood No growth in Aerobic bottle after 48 hours. Anaerobic Blood Culture - Preliminary No growth in Anaerobic bottle after 48 hours. Electrocardiogram Date: 03/17/23 Ventricular-paced rhythm Atrial flutter Abnormal ECG Echocardiogram Date: 12/01/22 EF: 30-35% LV Function: dysfunctional Valvular Disease: + MR (mod-severe)
--- NOTE | 2023-03-19 07:50 | Cardioversion ---
Date of Service March 19, 2023 PG Electrical Cardioversion Rp Electrical Cardioversion Report Procedure performed: Cardioversion Indication: Atrial fibrillation Staff carton forming machine helper: Yuri Mary MD Procedure in detail: The patient was informed of the risks benefits and alternatives to the intended procedure. He understood such which proceed. He was taken to the cardiac catheterization suite holding area. A general anesthetic was administered by the Anesthesiology Service. Once appropriately anesthetized, the patient was cardioverted using 200 joules delivered in a biphasic fashion. This returned the patient to sinus rhythm. The patient tolerated procedure well, there were no immediate complications. Patient was neurologically intact subsequent to the procedure. Impression: Successful cardioversion from atrial fibrillation to normal sinus rhythm Coding Level of Care Code 84848 CARDIOVERSION, ELECTIVE Additional Codes Electrical Cardioversion Report ([id number])
--- NOTE | 2023-03-19 07:59 | Anesthesiology Progress Note ---
Date of Service March 19, 2023 Anesthesia Post Procedure Vital Signs Vital Signs: Temp Pulse Pulse Resp BP Pulse Ox O2 Del Method 03/19/23 07:45 70 18 111/64 93 Room Air 03/19/23 07:10 70 18 124/63 95 Room Air 03/18/23 20:46 36.4 C L 71 73 20 119/65 93 Room Air 03/18/23 14:18 77 16 105/65 94 Room Air Pain Intensity Generalized: Pain Intensity: 0 Transfer of Care Handoff Completed per policy Notes Mental Status: alert / awake / arousable Patient Amnestic to Procedure: Yes Nausea / Vomiting: adequately controlled Pain: adequately controlled Airway Patency, RR, SpO2: stable & adequate BP & HR: stable & adequate Hydration State: stable & adequate Anesthetic Complications: no major complications apparent and Pt Satisfied with anesthetic care
--- NOTE | 2023-03-19 08:29 | Hospitalist Progress Note ---
Date of Service March 19, 2023 Assessment & Plan (1) Acute metabolic encephalopathy: Plan: 82yo male with multiple medical comorbidities [facility] from [facility] with progressive confusion, auditory and visual hallucinations. Delirium likely secondary to UTI. Workup otherwise with mild elevation of WBC=11.4. Electrolytes normal with exception of mild hyponatremia Nd=759. BUN=43, Cr=2.75 which is slightly increased from baseline. Ammonia normal. TSH mildly elevated at 7 but would not likely cause this degree of delirium. CT Head with no acute issue. Now completely resolved with treatment with IV antibiotics for UTI 03/19 AAO x3 and able to recall numerous details of his recent history including his delirium/hallucination findings he voiced to staff at rehab -Continue treatment for UTI -Delirium prevention strategies with frequent orientation, maintenance of sleep/wake cycles when able. Patient would benefit from undisturbed sleep, no PM vital signs if they are stable. Avoidance of potential delirium-inducing agents -Maintain fall precautions -Melatonin qHS as needed insomnia (2) UTI (urinary tract infection): Plan: Bills catheter associated UTI Urine culture from [place] with E. coli, Proteus and Enterococcus. Obtained records from [facility]-E. coli pansensitive, Proteus resistant to ampicillin and cefazolin, as well as tetracycline, and Enterococcus resistant to tetracycline Patient with Bills catheter in place since his fall in January. Bills was changed x 2, most recently here in the ER 03/16/23. No history of multi-drug resistant organisms per our records. Bills catheter remains in place as patient was mostly bedbound and unable to urinate from a lying position as per his daughter Urinalysis here with 3+ blood but no evidence of infection likely as he has been partially treated at least for the E. coli with 1 dose of Rocephin and p.o. Keflex prior to admission -Recommend trial of void prior to discharge now that he is able to bear weight as tolerated as per orthopedics with his left hip fracture PATIENT REPORTS HAVING DIFFICULTY STANDING TO BEAR WEIGHT/WEAKNESS IN HIS LEGS YESTERDAY 2ND TO UTI -- HOLDING OFF REMOVAL FOR NOW, HOWEVER DID DISCUSS IF IMPROVING IN WEIGHT BEARING/STANDING WOULD REC DISCONTINUING TO PREVENT REPEAT INFECTION Zosyn IV on admit w/ clinical improvement, however based on sensitivities, this is not going to cover for the Proteus and Zosyn is not recommended for treatment of Enterococcus D/c Zosyn, placed on Ceftriaxone (cover for Ecoli/Proteus) + Dapto for coverage enteroccocus. MRSA nasal NEGATIVE (no need to be on Vanco for pulm coverage for PNA on Xray) Day THREE of therapy 03/19 BLood cultures -- NGTD -- monitor CK w/o significant elevation (3) Hypoxia: Plan: With pulmonary edema and pulmonary vascular congestion with possible pneumonia seen on chest x-ray. With delirium likely more from UTI, but does have some cough and wheeze but also with chronic lung disease Zosyn would also cover for pneumonia but now switched to ceftriaxone Supplemental O2 as needed -- currently 94% IVF stopped as provided on admission, home lasix 40mg PO daily restarted 03/17 with improvement and will continue Continue home COPD inhalers Repeat CXR Slight improvement in interstitial thickening and patchy bilateral opacities. The findings favor improving pulmonary edema. An infectious process could appear similar although is considered less likely. Continued radiographic follow-up is recommended. Follow cxr to resolution -- asymetrical pulm edema vs multifocal pneumonia biofire testing ordered Continues on Rocephin/Dapto as above, MRSA nares negative (4) Abnormal TSH: Plan: TSH continues to trend upward since November, now up to 7.7 with normal free T4 Most likely secondary to amiodarone therapy Consulted cardiology to discuss weaning off amiodarone and potentially starting another antiarrhythmic versus rate control strategy? Dr Trejo saw , rec possible stopping amiodarone but consideration for cardioversion to be considered and Dr Mary to see Started Synthroid 25mcg daily -- continue while on amiodarone therapy, decreased to 200mg daily s/p cardioversion this AM 03/[address] Mary , tolerated well (5) Wound of lower extremity: Plan: Secondary to recent fall with sutures under left fifth toe and multiple small wounds on legs Consulted wound care while inpatient confirming timing w/ family --> removed 03/19 (6) Chronic combined systolic and diastolic CHF (congestive heart failure): Plan: Acute on chronic combined systolic and diastolic CHF Most recent EF 30-35% with wall motion abnormalities, also with right heart failure, moderate-severe MR, and mild AI in 11/2022 With lower extremity edema here that he states is his chronic amount, wheezing and crackles on examination and chest x-ray consistent with pulmonary edema Stopped IV fluids started on admission, restarted his lasix 40mg PO daily Remains on Toprol XL No longer on lisinopril -- w/ KENNEY, will hold for now (? if dc at [facility]) --> renal function stable compared to baseline and will resume lisinopril 2.5mg daily (BP 137/71) and monitor Not on entresto/SGLT2/spironolactone due to renal failure per CHF notes IMPROVING Monitor weights/I&Os (7) Anabel-prosthetic fracture around prosthetic hip: Plan: Patient admitted to [facility] following a fall resulting in a anabel-prosthetic fracture of the left hip. He maintains non-weight bearing status. Has been following with Orthopedic Surgery - last seen 03/10/23. During that time was complaining of pain with motion. He had X-rays obtained which showed the fracture in good alignment. He was progressed to weight bearing of the LLE as tolerated. PT evaluation for ambulation as tolerated LLE weight bearing with caution Voiding trial to be attempted if improvement w/ ambulation/strength w/ treatment of infection He is to followup with Ortho in another 6 weeks. 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 Resuming lisinopril 2.5mg as above given CHF Avoid nephrotoxins/renal dose meds as able Monitor BMP (9) Ischemic cardiomyopathy: Plan: AICD in place - done in December by Dr. Mary. Restarting Lasix as noted above Continue metoprolol 25mg po qPM Was discharged from [facility] on Lisinopril 2.5mg po daily - not on his current medication list. Held due to poor renal function -- resumed as above s/p cardioversion as above 03/19 (10) Elevated troponin: Plan: Patient denies chest pain. No acute ischemic changes Serial troponin stable at 42/41 Likely myocardial demand ischemia in the setting of hypoxia and acute illness with underlying CAD (11) COPD (chronic obstructive pulmonary disease): Plan: Chronic cough. With wheezing here. Daughter states that his O2 level will often drop at night. He does not wear CPAP or other devices. -Continue Breo Ellipta daily -Duoneb q 6 hours PRN SOB -Supplemental O2 qHS (12) Paroxysmal atrial flutter: Plan: V-paced on EKG. -Continue Amiodarone 200mg po BID for now but likely needs to be discontinued for worsening thyroid function as noted above --> planning to be reduced to 200mg daily per Dr Mary/cardioversion as above -Continue Apixaban 2.5mg po BID -Continue metoprolol 25mg po qHS (13) Coronary artery disease: Plan: Remote history of RCA stent With myocardial demand ischemia as noted above -Continue apixaban, metoprolol. Aspirin added back 03/17 which was not on his home med rec. Noting patient statin intolerant (14) History of pulmonary embolism: Plan: Continue Eliquis (15) Hypertension: Plan: Blood pressures are controlled Continue home metoprolol, lisinopril 2.5mg resumed as above. monitor for any hypotension (16) PAD (peripheral artery disease): Plan: With stent in the groin, history of carotid artery stenosis Continue aspirin and is intolerant of statins (17) Constipation: Plan: Was a major issue last admission but seems to be improved Continue senna/docusate, MiraLAX as needed (18) Elevated alkaline phosphatase level: Plan: bony from hip fracture vs liver from amiodarone and/or hepatic congestion from CHF? Total bilirubin mildly elevated and has been for quite some time No abdominal pain or tenderness, no need for abdominal imaging at present Repeat LFTs w/ TB normalized, ALP continued decline w/ diuretics (suspect from hepatic congestion) Reduced amio as above to 200mg daily Plan Disposition-continued stay on telemetry, PT/OT consulted, will need a new authorization to return to [facility]. Discussed w/ daughter Eusebia last evening and bad experience w/ [facility], additional referrals sent to [facility]. Cm following Continue PT/OT while inpatient Admission and Anticipated Discharge Date Admission Date: March 17, 2023 Supervising Physician Co-Signing Physician Notes The patient was not seen by me. The chart was reviewed. Case discussed with GABBY Levi. Agree with assessment and plan Subjective eval this afternoon, had cardioversion this morning. states breathing stable/improved. Abx ordered to cover for infectious etiology. RN to swab to ensure no other viral PNA process. He is wanting to get back to rehab as soon as possible. Discussed will update CM to see about referrals as given by his daughter Eusebia given prior poor experience with [facility]. Physical Exam Physical Exam: General: WD/WN chronically ill appearing male, sitting up in bed, NAD, +decreased cough HEENT: head normocephalic, atraumatic, white exudate OP, trachea midline Resp: faint bilateral wheezing, diminished in the bases/associated crackles, on room air, +cough, no tachypnea CV: paced on prior EKG -- appears regular, rates in 70s, no significant m/r/g, 1+ bilateral edema (reports slightly improved) GI: +BS, soft/NT : bills draining yellow, slightly more concentrated urine today MSK/Neuro: some pain w/ ROM LEFT hip, no active hematoma/bleeding/lesions does still have several sutures to his LEFT foot, 5th digit, no active drainage (sutures removed by myself during exam) Psych: AOx3, cooperative with exam Results & Data Results & Data Vital Signs (Past 12 Hours) Vital Signs Temp Pulse Pulse Resp BP Pulse Ox O2 Del Method 03/19/23 08:15 72 18 124/77 93 Room Air 03/19/23 08:00 70 18 121/64 93 Room Air 03/19/23 07:45 70 18 111/64 93 Room Air 03/19/23 07:10 70 18 124/63 95 Room Air 03/18/23 20:46 36.4 C L 71 73 20 119/65 93 Room Air Laboratory Results 03/19/23 03/19/23 Range/Units 09:45 09:45 WBC 10.09 (4.8-10.8) K/ul RBC 4.40 L (4.70-6.10) M/uL Hgb 14.1 (14.0-18.0) g/dl Hct 42.3 (42.0-52.0) % MCV 96.1 (80.0-100.0) fL MCH 32.0 (25.0-34.0) pg MCHC 33.3 (32.0-36.0) g/dL RDW Std Deviation 54.3 H (36.4-46.3) fL RDW Coeff of Anton 15.3 H (11.5-14.5) % Plt Count 199 (130-400) K/uL MPV 9.5 (9.4-12.4) fL Sodium 135 L (136-145) mmol/L Potassium 4.7 (3.5-5.1) mmol/L Chloride 105 (98-107) mmol/L Carbon Dioxide 20 L (21-32) mmol/L Anion Gap 10 (3-11) BUN 40 H (6-23) mg/dl Creatinine 2.44 H (0.6-1.4) mg/dl Est Cr Clr Drug Dosing 27.0 ml/min Est GFR ( Amer) 27.1 ml/min Est GFR (Non-Af Amer) 23.4 ml/min BUN/Creatinine Ratio 16.4 (10-20) Glucose 114 H (70-99(Fasting)) mg/dl Calcium 8.5 L (8.6-10.3) mg/dl Magnesium 1.9 (1.7-2.4) mg/dl Total Bilirubin 0.9 (0.2-1.0) mg/dl Direct Bilirubin 0.2 (0-0.2) mg/dl AST 16 (13-39) U/L ALT 7 (7-52) U/L Alkaline Phosphatase 111 H (34-104) U/L Total Protein 6.5 (6.0-8.3) gm/dl Albumin 3.2 L (3.4-5.0) gm/dl Diagnostic Findings Chest X-Ray 03/19/23 07:00 XR chest 1V portable HISTORY: 82 years-old Male f/u pulmonary congestion/pneumonia COMPARISON: 03/18/2023 TECHNIQUE: AP view of the chest FINDINGS: Cardiac silhouette is enlarged. Left subclavian pacer/AICD. Right hemidiaphragmatic elevation. Pulmonary vascular congestion with interstitial coarsening and ill-defined left midlung airspace opacities. No significant change from prior. Healed chronic left-sided rib fractures. Bones appear grossly intact. IMPRESSION: Stable appearance of the chest with cardiomegaly, pulmonary vascular congestion with bilateral mixed interstitial and alveolar opacities suggestive of asymmetric pulmonary edema versus multifocal pneumonia. ACT 112: Negative or not required by law. The above report was generated using voice recognition software. It may contain grammatical, syntax or spelling errors. Electronically signed by: Ananth Lopez M.D. 03/19/2023 11:03 AM PG Care Time/CCT Total # of Minutes Spent Total Time Spent with Patient: Total time spent is greater than 50% in coordination of care (as documented) at patient's floor/unit and/or counseling patient: Coding Level of Care Code 65286 SUB INP/OBS CARE 3/50MIN Diagnoses Acute metabolic encephalopathy G93.41 UTI (urinary tract infection) N39.0 Hypoxia R09.02 Abnormal TSH R79.89 Wound of lower extremity S81.809A Chronic combined systolic and diastolic CHF (congestive heart failure) I50.42 Anabel-prosthetic fracture around prosthetic hip M97.8XXD; Z96.649 Encounter type: subsequent encounter CKD (chronic kidney disease) N18.9 Ischemic cardiomyopathy I25.5 Elevated troponin R77.8 COPD (chronic obstructive pulmonary disease) J44.9 COPD type: unspecified COPD Paroxysmal atrial flutter I48.92 Coronary artery disease I25.10 Associated angina: without angina Coronary Disease-Associated Artery/Lesion type: [place] artery [place] vs. transplanted heart: [place] heart History of pulmonary embolism Z86.711 Hypertension I10 Hypertension type: essential hypertension PAD (peripheral artery disease) I73.9 Constipation K59.00 Elevated alkaline phosphatase level R74.8 (7) Anabel-prosthetic fracture around prosthetic hip Encounter type: subsequent encounter Qualified Code(s): M97.8XXD - Periprosthetic fracture around other internal prosthetic joint, subsequent encounter; Z96.649 - Presence of unspecified artificial hip joint (11) COPD (chronic obstructive pulmonary disease) COPD type: unspecified COPD Qualified Code(s): J44.9 - Chronic obstructive pulmonary disease, unspecified (13) Coronary artery disease Associated angina: without angina Coronary Disease-Associated Artery/Lesion type: [place] artery [place] vs. transplanted heart: [place] heart Qualified Code(s): I25.10 - Atherosclerotic heart disease of [place] coronary artery without angina pectoris (15) Hypertension Hypertension type: essential hypertension Qualified Code(s): I10 - Essential (primary) hypertension
[2023-03-19] MEDS: DOCUSATE SODIUM/SENNA 50/8.6MG TAB PO SCH (09:51)
[2023-03-19] MEDS: AMIODARONE 200 MG TAB PO SCH (09:51)
[2023-03-19] MEDS: APIXABAN 2.5 MG TAB PO SCH ×2 (09:52→19:59)
[2023-03-19] MEDS: ASPIRIN 81 MG ECTAB PO SCH (09:52)
[2023-03-19] MEDS: FUROSEMIDE 40 MG TAB PO SCH (09:53)
[2023-03-19] MEDS: FLUTICASONE/VILANTEROL 100/25MCG 14 PUFFS/INHALER INH SCH (09:53)
[2023-03-19] MEDS: CHOLECALCIFEROL 1,000 UNITS 25 MCG TAB PO SCH (09:53)
--- NOTE | 2023-03-19 10:01 | Cardiology Progress Note ---
Date of Service March 19, 2023 Assessment & Plan (1) Atrial flutter: (2) Chronic combined systolic and diastolic CHF (congestive heart failure): (3) Hypothyroidism: (4) ICD (implantable cardioverter-defibrillator), biventricular, in situ: Plan 1. Atrial flutter: He underwent a successful cardioversion today. We will see if this improves symptoms or overall LV function. Will continue amiodarone 200 mg daily. Continue Eliquis at reduced dose. Atrial therapies activated through his device. Preference pacing also activated. 2. Congestive heart failure: He seems euvolemic today. Lung examination was benign. No complaints of dyspnea. 3. Hypothyroidism: Continue amiodarone. Low-dose levothyroxine started 4. ICD: Normal function with good pacing percentage. Admission and Anticipated Discharge Date Admission Date: March 17, 2023 Subjective This morning patient claimed he feeling well. Not report any significant breathing difficulty. No sense of palpitation. Review of Systems Review of Systems: Per HPI Physical Exam Physical Exam: The patient is alert and oriented. Mood and affect appeared normal. He answered all questions appropriately. HEENT: Pupils are equal and reactive to light and accommodation. Extraocular movements are intact. The sclerae are anicteric. Neuro: Cranial nerves intact Lungs: Normal respiratory effort Cardiac: Heart demonstrates a regular rate and rhythm. Pulses: The patient has palpable radial pulses bilaterally that are equal in intensity Extremities: There was no evidence of hypoperfusion. There is no cyanosis or clubbing. Skin: I did not appreciate any rashes on examination today. Several bandaged ulcerations and excoriations Results & Data Vital Signs (Past 12 Hours) Vital Signs Pulse Resp BP Pulse Ox O2 Del Method 03/19/23 08:30 72 18 137/71 93 Room Air 03/19/23 08:15 72 18 124/77 93 Room Air 03/19/23 08:00 70 18 121/64 93 Room Air 03/19/23 07:45 70 18 111/64 93 Room Air 03/19/23 07:10 70 18 124/63 95 Room Air Laboratory Results Abnormal Lab Results 03/18/23 03/18/23 09:55 09:55 WBC 10.56 RBC 4.48 L Hgb 14.1 Hct 43.0 MCV 96.0 MCH 31.5 MCHC 32.8 RDW Std Deviation 53.4 H RDW Coeff of Anton 15.2 H Plt Count 224 MPV 9.3 L Immature Gran % (Auto) 0.5 Neut % (Auto) 82.9 Lymph % (Auto) 5.6 Maverick % (Auto) 9.1 Eos % (Auto) 1.3 Baso % (Auto) 0.6 Neut # (Auto) 8.76 H Lymph # (Auto) 0.59 L [place] # (Auto) 0.96 H Eos # (Auto) 0.14 Baso # (Auto) 0.06 Immature Gran # (Auto) 0.05 Sodium 137 Potassium 4.3 Chloride 104 Carbon Dioxide 26 Anion Gap 7 BUN 38 H Creatinine 2.44 H Est Cr Clr Drug Dosing 27.0 Est GFR ( Amer) 27.1 Est GFR (Non-Af Amer) 23.4 BUN/Creatinine Ratio 15.6 Glucose 156 H Calcium 8.5 L Magnesium 1.9 Total Bilirubin 1.0 AST 13 ALT 8 Alkaline Phosphatase 113 H Total Creatine Kinase 32 Total Protein 6.4 Albumin 3.1 L Globulin 3.3 Albumin/Globulin Ratio 0.9 Diagnostic Findings I performed a complete device interrogation of his biventricular ICD. Normal function on all leads. Elevated pacing thresholds in LV 2, LV 3 to coil configuration. Currently programmed to LV 1 to coil. Atrial therapies activated. Preference pacing activated. PG Care Time/CCT Total # of Minutes Spent Total Time Spent with Patient: Total time spent is greater than 50% in coordination of care (as documented) at patient's floor/unit and/or counseling patient: Coding Level of Care Code 77138 SUB INP/OBS CARE 2/35MIN Diagnoses Atrial flutter I48.92 Chronic combined systolic and diastolic CHF (congestive heart failure) I50.42 Hypothyroidism E03.9 ICD (implantable cardioverter-defibrillator), biventricular, in situ Z95.810 CPT Codes Implantable Defib Multi lead programming - 59997 ([id number]) 26 - PROFESSIONAL COMPONENT
[2023-03-19 10:29] LABS: Hematocrit (blood only) 42.3 % (42.0-52.0); Hemoglobin 14.1 g/dl (14.0-18.0); Mean Corpuscular Hgb Conc 33.3 g/dL (32.0-36.0); Mean Corpuscular Volume 96.1 fL (80.0-100.0); Mean Platelet Volume 9.5 fL (9.4-12.4); Platelet Count 199 K/uL (130-400); RDW Coefficient of Variation 15.3 % (11.5-14.5); RDW Standard Deviation 54.3 fL (36.4-46.3); White Blood Count 10.09 K/ul (4.8-10.8)
[2023-03-19 10:47] LABS: Albumin Level 3.2 gm/dl (3.4-5.0); Bilirubin Direct 0.2 mg/dl (0-0.2); Bilirubin,Total 0.9 mg/dl (0.2-1.0); Calcium 8.5 mg/dl (8.6-10.3); Magnesium 1.9 mg/dl (1.7-2.4); Potassium 4.7 mmol/L (3.5-5.1)
[2023-03-19 10:53] LABS: BUN Creatinine Ratio 16.4 (10-20); Est GFR (African American) 27.1 ml/min; Est GFR (Non-African American) 23.4 ml/min; Total Protein 6.5 gm/dl (6.0-8.3)
--- NOTE | 2023-03-19 11:04 | XRay Report ---
XR chest 1V portable HISTORY: 82 years-old Male f/u pulmonary congestion/pneumonia COMPARISON: 03/18/2023 TECHNIQUE: AP view of the chest FINDINGS: Cardiac silhouette is enlarged. Left subclavian pacer/AICD. Right hemidiaphragmatic elevation. Pulmon [place] vascular congestion with interstitial coarsening and ill-defined left midlung airspace opacities. No significant change from prior. Healed chronic left-sided rib fractures. Bones appear grossly inta ct. IMPRESSION: Stable appearance of the chest with cardiomegaly, pulmonary vascular congestion with bila teral mixed interstitial and alveolar opacities suggestive of asymmetric pulmonary edema versus multi focal pneumonia. ACT 112: Negative or not required by law. The above report was generated using voice recognition software. It may contain grammatical, syntax o r spelling errors. Electronically signed by: Ananth Lopez M.D. 03/19/2023 11:03 AM
[2023-03-19] MEDS ORDERED: DAPTOmycin 500 MG in SYRINGE 0 ML IV SCH (14:00)
[2023-03-19] MEDS: lisinopril 2.5 MG TAB PO SCH (16:52)
[2023-03-19 18:17] LABS: Adenovirus PCR Not Detected (NotDetected); Bordetella parapertussis PCR Not Detected (NotDetected); Bordetella pertussis PCR Not Detected (NotDetected); Chlamydia pneumoniae PCR Not Detected (NotDetected); Coronavirus 229E PCR Not Detected (NotDetected); Coronavirus CoV-2 (COVID19)PCR Not Detected (NotDetected); Coronavirus HKU1 PCR Not Detected (NotDetected); Coronavirus NL63 PCR Not Detected (NotDetected); Coronavirus OC43PCR Not Detected (NotDetected); Human Metapneumovirus PCR Not Detected (NotDetected); Influenza A PCR Not Detected (NotDetected); Influenza B PCR Not Detected (NotDetected); Mycoplasma pneumoniae PCR Not Detected (NotDetected); Parainfluenza Virus 1 PCR Not Detected (NotDetected); Parainfluenza Virus 2 PCR Not Detected (NotDetected); Parainfluenza Virus 3 PCR Not Detected (NotDetected); Parainfluenza Virus 4 PCR Not Detected (NotDetected); Respiratory Syncytial VirusPCR Not Detected (NotDetected); Rhinovirus/Enterovirus PCR Not Detected (NotDetected)
[2023-03-19] MEDS: cefTRIAXone SODIUM 2,000 MG in DEXTROSE 5% 50 ML IV SCH (19:59)
[2023-03-19] MEDS: METOPROLOL SUCC 25MG EXT REL TAB PO SCH (21:08)
[2023-03-20] MEDS: NYSTATIN SUSP 500,000 U/5 ML UDC PO SCH ×4 (00:03→18:12)
[2023-03-20] MEDS: LEVOTHYROXINE SODIUM 25 MCG TABLET PO SCH (05:40)
[2023-03-20 06:08] LABS: Hematocrit (blood only) 39.7 % (42.0-52.0); Hemoglobin 13.4 g/dl (14.0-18.0); Mean Corpuscular Hemoglobin 32.1 pg (25.0-34.0); Mean Corpuscular Hgb Conc 33.8 g/dL (32.0-36.0); Mean Corpuscular Volume 95.2 fL (80.0-100.0); Mean Platelet Volume 9.4 fL (9.4-12.4); Platelet Count 213 K/uL (130-400); RDW Coefficient of Variation 15.2 % (11.5-14.5); Red Blood Count 4.17 M/uL (4.70-6.10); White Blood Count 11.08 K/ul (4.8-10.8)
[2023-03-20 06:27] LABS: BUN Creatinine Ratio 18.7 (10-20); Calcium 8.3 mg/dl (8.6-10.3); Creatinine Clr Calc Pharmacy 32.5 ml/min; Est GFR (African American) 33.9 ml/min; Est GFR (Non-African American) 29.2 ml/min; Magnesium 1.8 mg/dl (1.7-2.4); Potassium 3.8 mmol/L (3.5-5.1)
--- NOTE | 2023-03-20 07:43 | XRay Report ---
XR chest 1V portable CLINICAL HISTORY: follow up COMPARISON STUDY: Chest radiograph March 19, 2023. FINDINGS: Left subclavian pacer/AICD is in place. Cardiomegaly is unchanged. There is no pneumothorax or pleural effusion. Calcified pleural plaques are again noted. Interstitial thickening and patchy b ilateral opacities have slightly increased. IMPRESSION: Cardiomegaly. Slight increase in interstitial thickening and patchy bilateral opacities which reflect multifocal pneumonia or pulmonary edema. ACT 112: Negative or not required by law. Electronically signed by: Prashanth Osorio M.D. 03/20/2023 7:42 AM
--- NOTE | 2023-03-20 07:57 | Cardiology Progress Note ---
Date of Service March 20, 2023 Assessment & Plan (1) Atrial flutter: (2) Chronic combined systolic and diastolic CHF (congestive heart failure): (3) Hypothyroidism: (4) ICD (implantable cardioverter-defibrillator), biventricular, in situ: Plan 1. Atrial flutter: Cardioverted yesterday. We will need to get an EKG or follow his intracardiac electrograms through his device to know if he reverted back to atrial flutter. However, think it is reasonable to simply continue his amiodarone at this time and anticoagulation. If he has an early return to atrial flutter will probably discontinue amiodarone and concentrate on a rate control strategy. 2. Congestive heart failure: He still requiring some supplemental oxygen. Unclear this is related more to pneumonia or his congestive heart failure. However, he did affect a good diuresis yesterday on his current dose of di uretic. Renal function also stable. I will continue his daily diuretic and monitor his output. I would have a low threshold for an intravenous dose of Lasix if he is not affect a negative fluid balance. 3. Hypothyroidism: Continue amiodarone. Low-dose levothyroxine started 4. ICD: Normal function with good pacing percentage. At this point cardiology will sign off. Would concentrate on monitoring his volume status. If he has affecting some negative balance on his oral dose of furosemide that would likely be adequate. Please do not hesitate to call the on-call [facility] try out person for any questions or concerns. Admission and Anticipated Discharge Date Admission Date: March 17, 2023 Subjective This morning patient was concerned about an episode of confusion over the course of the evening. However, now he appears to be more at baseline. He did not recall ambulating yesterday. He states his breathing is fine. No pain in the hip area. No palpitations. Review of Systems Review of Systems: Per HPI Physical Exam Physical Exam: The patient is alert and oriented. Mood and affect appeared normal. He answered all questions appropriately. HEENT: Pupils are equal and reactive to light and accommodation. Extraocular movements are intact. The sclerae are anicteric. Neuro: Cranial nerves intact Lungs: Normal respiratory effort. Some rales at the left base. No expiratory wheezes. Cardiac: Heart demonstrates a regular rate and rhythm. Pulses: The patient has palpable radial pulses bilaterally that are equal in intensity Extremities: There was no evidence of hypoperfusion. There is no cyanosis or clubbing. Skin: I did not appreciate any rashes on examination today. Several bandaged ulcerations and excoriations Nguyễn catheter in place Results & Data Vital Signs (Past 12 Hours) Vital Signs Temp Pulse Resp BP Pulse Ox O2 Del Method O2 Flow Rate 03/20/23 07:35 36.9 C 71 18 121/71 94 Room Air 03/19/23 21:15 Nasal Cannula 2 03/19/23 19:54 36.4 C L 71 20 147/75 H 91 Room Air Laboratory Results Abnormal Lab Results 03/19/23 03/19/23 03/19/23 09:45 09:45 17:10 WBC 10.09 RBC 4.40 L Hgb 14.1 Hct 42.3 MCV 96.1 MCH 32.0 MCHC 33.3 RDW Std Deviation 54.3 H RDW Coeff of Anton 15.3 H Plt Count 199 MPV 9.5 Sodium 135 L Potassium 4.7 Chloride 105 Carbon Dioxide 20 L Anion Gap 10 BUN 40 H Creatinine 2.44 H Est Cr Clr Drug Dosing 27.0 Est GFR ( Amer) 27.1 Est GFR (Non-Af Amer) 23.4 BUN/Creatinine Ratio 16.4 Glucose 114 H Calcium 8.5 L Magnesium 1.9 Total Bilirubin 0.9 Direct Bilirubin 0.2 AST 16 ALT 7 Alkaline Phosphatase 111 H B-Natriuretic Peptide Total Protein 6.5 Albumin 3.2 L Adenovirus (PCR) Not Detected B. pertussis DNA (PCR) Not Detected B.parapertussis DNA PCR Not Detected C. pneumoniae DNA (PCR) Not Detected Coronavirus OC43 (PCR) Not Detected Coronavirus HKU1 (PCR) Not Detected Coronavirus 229E (PCR) Not Detected SARS-CoV-2 (PCR) Not Detected Coronavirus NL63 (PCR) Not Detected Human Metapneumovir PCR Not Detected Influenza Type A (PCR) Not Detected Influenza Type B (PCR) Not Detected M. pneumoniae (PCR) Not Detected Parainfluenza 1 (PCR) Not Detected Parainfluenza 2 (PCR) Not Detected Parainfluenza 3 (PCR) Not Detected Parainfluenza 4 (PCR) Not Detected RSV (PCR) Not Detected Entero/Rhino (PCR) Not Detected 03/20/23 03/20/23 03/20/23 05:34 05:34 05:34 WBC 11.08 H RBC 4.17 L Hgb 13.4 L Hct 39.7 L MCV 95.2 MCH 32.1 MCHC 33.8 RDW Std Deviation 53.0 H RDW Coeff of Anton 15.2 H Plt Count 213 MPV 9.4 Sodium 136 Potassium 3.8 Chloride 104 Carbon Dioxide 24 Anion Gap 8 BUN 38 H Creatinine 2.03 H D Est Cr Clr Drug Dosing 32.5 Est GFR ( Amer) 33.9 Est GFR (Non-Af Amer) 29.2 BUN/Creatinine Ratio 18.7 Glucose 92 Calcium 8.3 L Magnesium 1.8 Total Bilirubin Direct Bilirubin AST ALT Alkaline Phosphatase B-Natriuretic Peptide 1279 H Total Protein Albumin Adenovirus (PCR) B. pertussis DNA (PCR) B.parapertussis DNA PCR C. pneumoniae DNA (PCR) Coronavirus OC43 (PCR) Coronavirus HKU1 (PCR) Coronavirus 229E (PCR) SARS-CoV-2 (PCR) Coronavirus NL63 (PCR) Human Metapneumovir PCR Influenza Type A (PCR) Influenza Type B (PCR) M. pneumoniae (PCR) Parainfluenza 1 (PCR) Parainfluenza 2 (PCR) Parainfluenza 3 (PCR) Parainfluenza 4 (PCR) RSV (PCR) Entero/Rhino (PCR) PG Care Time/CCT Total # of Minutes Spent Total Time Spent with Patient: Total time spent is greater than 50% in coordination of care (as documented) at patient's floor/unit and/or counseling patient: Coding Level of Care Code 03991 SUB INP/OBS CARE 2/35MIN Diagnoses Atrial flutter I48.92 Chronic combined systolic and diastolic CHF (congestive heart failure) I50.42 Hypothyroidism E03.9 ICD (implantable cardioverter-defibrillator), biventricular, in situ Z95.810
--- NOTE | 2023-03-20 08:06 | Hospitalist Progress Note ---
Date of Service March 20, 2023 Assessment & Plan (1) Acute metabolic encephalopathy: Plan: 82yo male with multiple medical comorbidities [facility] with progressive confusion, auditory and visual hallucinations. Delirium likely secondary to UTI. Workup otherwise with mild elevation of WBC=11.4. Electrolytes normal with exception of mild hyponatremia Ci=244. BUN=43, Cr=2.75 which is slightly increased from baseline. Ammonia normal. TSH mildly elevated at 7 but would not likely cause this degree of delirium. CT Head with no acute issue. Now completely resolved with treatment with IV antibiotics for UTI AAO x3 and able to recall numerous details of his recent history including his delirium/hallucination findings he voiced to staff at rehab -Continue treatment for UTI -Delirium prevention strategies with frequent orientation, maintenance of sleep/wake cycles when able. Patient would benefit from undisturbed sleep, no PM vital signs if they are stable. Avoidance of potential delirium-inducing agents -Maintain fall precautions -Melatonin qHS as needed insomnia 03/20 - Mentation stable but frustrated w/ continued inpatient stay/therapy here. Additional dose lasix as below/abx for coverage UTI/possible PNA (2) UTI (urinary tract infection): Plan: Bills catheter associated UTI Urine culture from [place] with E. coli, Proteus and Enterococcus. Obtained records from [facility]-E. coli pansensitive, Proteus resistant to ampicillin and cefazolin, as well as tetracycline, and Enterococcus resistant to tetracycline Patient with Bills catheter in place since his fall in January. Bills was changed x 2, most recently here in the ER 03/16/23. No history of multi-drug resistant organisms per our records. Bills catheter remains in place as patient was mostly bedbound and unable to urinate from a lying position as per his daughter Urinalysis here with 3+ blood but no evidence of infection likely as he has been partially treated at least for the E. coli with 1 dose of Rocephin and p.o. Keflex prior to admission -Recommend trial of void prior to discharge now that he is able to bear weight as tolerated as per orthopedics with his left hip fracture PATIENT REPORTS HAVING DIFFICULTY STANDING TO BEAR WEIGHT/WEAKNESS IN HIS LEGS YESTERDAY 2ND TO UTI -- HOLDING OFF REMOVAL FOR NOW, HOWEVER DID DISCUSS IF IMPROVING IN WEIGHT BEARING/STANDING WOULD REC DISCONTINUING TO PREVENT REPEAT INFECTION Zosyn IV on admit w/ clinical improvement, however based on sensitivities, this is not going to cover for the Proteus and Zosyn is not recommended for treatment of Enterococcus D/c Zosyn, placed on Ceftriaxone (cover for Ecoli/Proteus) + Dapto for coverage enteroccocus. MRSA nasal NEGATIVE (no need to be on Vanco for pulm coverage for PNA on Xray) Day FOUR of therapy 03/19. Can consider transitoin to ampicillin for UTI however continue rocephin for pulm coverage (but suspect more from pulm edema, sputum cx ordered but not collected) Blood cultures -- NGTD -- monitor CK w/o significant elevation (3) Hypoxia: Plan: With pulmonary edema and pulmonary vascular congestion with possible pneumonia seen on chest x-ray. With delirium likely more from UTI, but does have some cough and wheeze but also with chronic lung disease Zosyn would also cover for pneumonia but now switched to ceftriaxone Supplemental O2 as needed -- currently 94% IVF stopped as provided on admission, home lasix 40mg PO daily restarted 03/17 with improvement and will continue Continue home COPD inhalers Hypoxic while sleeping afternoon 03/19, to have been using 2L HS but hadn't been. No known hx underlying LEONIDES but could be suspected CXR on repeat w/ slight worsening, increased O2 requirement and suspecting needing additional dose diuretics, renal function stable and improved Biofire negative Lasix usual 40mg PO this morning, 40mg IV x 1 for this afternoon and monitor I/O, aiming net negative Continues on Rocephin/Dapto as above, MRSA nares negative Follow CXR to resolution (4) Abnormal TSH: Plan: TSH continues to trend upward since November, now up to 7.7 with normal free T4 Most likely secondary to amiodarone therapy Consulted cardiology to discuss weaning off amiodarone and potentially starting another antiarrhythmic versus rate control strategy? Dr Trejo saw , rec possible stopping amiodarone but consideration for cardioversion to be considered and Dr Mary to see Started Synthroid 25mcg daily -- continue while on amiodarone therapy, decreased to 200mg daily s/p cardioversion AM 03/[address] Mary , tolerated well (5) Wound of lower extremity: Plan: Secondary to recent fall with sutures under left fifth toe and multiple small wounds on legs Consulted wound care while inpatient Sutures removed 03/19 (6) Chronic combined systolic and diastolic CHF (congestive heart failure): Plan: Acute on chronic combined systolic and diastolic CHF Most recent EF 30-35% with wall motion abnormalities, also with right heart failure, moderate-severe MR, and mild AI in 11/2022 With lower extremity edema here that he states is his chronic amount, wheezing and crackles on examination and chest x-ray consistent with pulmonary edema Stopped IV fluids started on admission, restarted his lasix 40mg PO daily Remains on Toprol XL Was no longer on lisinopril -- w/ KENNEY, will hold for now (? if dc at snf) --> renal function stable compared to baseline and resumed lisinopril 2.5mg daily 03/19 (BP 137/71) Not on entresto/SGLT2/spironolactone due to renal failure per CHF notes Renal function improved w/ resumption of lisinopril, BPs stable Weights, I&Os Continues on lasix 40mg PO daily, additional 40mg IV x 1 this afternoon and monitor response/CXR in AM (7) Anabel-prosthetic fracture around prosthetic hip: Plan: Patient admitted to [facility] following a fall resulting in a anabel-prosthetic fracture of the left hip. He maintains non-weight bearing status. Has been following with Orthopedic Surgery - last seen 03/10/23. During that time was complaining of pain with motion. He had X-rays obtained which showed the fracture in good alignment. He was progressed to weight bearing of the LLE as tolerated. PT evaluation for ambulation as tolerated LLE weight bearing with caution Voiding trial to be attempted if improvement w/ ambulation/strength w/ treatment of infection (no significant improvement and does not want removed until able to do such) He is to followup with Ortho in another 6 weeks. 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 Additional lasix as above for suspected volume overload Renal dose meds/avoid nephrotoxins as able, BMP in AM (9) Ischemic cardiomyopathy: Plan: AICD in place - done in December by Dr. Mary. Restarting Lasix as noted above Continues metoprolol 25mg po qPM Was discharged from [facility] on Lisinopril 2.5mg po daily - not on his current medication list. Held due to poor renal function -- resumed as above s/p cardioversion as above 03/19 (10) Elevated troponin: Plan: Patient denies chest pain. No acute ischemic changes Serial troponin stable at 42/41 Likely myocardial demand ischemia in the setting of hypoxia and acute illness with underlying CAD (11) COPD (chronic obstructive pulmonary disease): Plan: Chronic cough. With wheezing here. Daughter states that his O2 level will often drop at night. He does not wear CPAP or other devices. -Continue Breo Ellipta daily -Duoneb q 6 hours PRN SOB -Supplemental O2 qHS (had not been using) Suspect he does likely have underlying LEONIDES --> f/u PCP at pa for further testing/discussion (12) Paroxysmal atrial flutter: Plan: V-paced on EKG. -Continued Amiodarone 200mg po BID --> reduced to 200mg daily per Dr Mary/cardioversion as above, started synthroid -Continue Apixaban 2.5mg po BID -Continue metoprolol 25mg po qHS s/p cardioversion 03/[address] Mary, [facility] (13) Coronary artery disease: Plan: Remote history of RCA stent With myocardial demand ischemia as noted above -Continue apixaban, metoprolol. Aspirin added back 03/17 which was not on his home med rec. Noting patient statin intolerant (14) History of pulmonary embolism: Plan: Continue Eliquis (15) Hypertension: Plan: Blood pressures are controlled Continue home metoprolol, lisinopril 2.5mg resumed as above, no hypotension, BP stable Lasix resumed as above given CHF Monitor (16) PAD (peripheral artery disease): Plan: With stent in the groin, history of carotid artery stenosis Continue aspirin and is intolerant of statins (17) Constipation: Plan: Was a major issue last admission but seems to be improved Continue senna/docusate, MiraLAX as needed BM this morning as well (18) Elevated alkaline phosphatase level: Plan: bony from hip fracture vs liver from amiodarone and/or hepatic congestion from CHF? Total bilirubin mildly elevated and has been for quite some time No abdominal pain or tenderness, no need for abdominal imaging at present Repeat LFTs w/ TB normalized, ALP continued decline w/ diuretics (suspect from hepatic congestion) Reduced amio as above to 200mg daily Plan Disposition-continued stay on telemetry, PT/OT consulted, needs a new authorization to return to [facility]. Discussed w/ daughter Eusebia prior given bad experience w/ [facility], additional referrals sent to [facility]. CM following Continue PT/OT while inpatient Admission and Anticipated Discharge Date Admission Date: March 17, 2023 Supervising Physician Co-Signing Physician Notes The patient was not seen by me. The chart was reviewed. Case discussed with GABBY Levi. Agree with assessment and plan Subjective Eval this morning, doing alright. Sleeping on entry, on 3L (uses 2 typically at night). CXR appears a little more congested, urine clear yellow in bills. Discussed additional dose of diuretics for today in the IV and monitoring kidney function on AM labs. He is frustrated about remaining inpatient presently and states he is going home or rehab on Wednesday one way or another. Reassurance provided. Attempting other locations but auth . Will contact CM to apply for such as well. Questions/concerns addressed at this time. Physical Exam Physical Exam: General: WD/WN chronically ill appearing male sleeping upon arrival, NAD, frustrated with continued inpatient stay HEENT: head normocephalic, atraumatic,trachea midline Resp: increased wheezing/some rales in L base, no tachypnea, occasional wet cough, on NC to maintain saturations diminished in the bases/associated crackles, on room air, +cough, no tachypnea CV: regular rate/rhythm, 1+ b/l LE edema, calves nontender GI: +BS, soft/NT : bills draining clear yellow urine today MSK/Neuro: some pain w/ ROM LEFT hip, no active hematoma/bleeding/lesions sutures to L foot removed 03/19, no surrounding cellulitis Psych: AOx3, cooperative with exam Results & Data Results & Data Vital Signs (Past 12 Hours) Vital Signs Temp Pulse Resp BP Pulse Ox O2 Del Method O2 Flow Rate 03/20/23 07:35 36.9 C 71 18 121/71 94 Nasal Cannula 3 03/19/23 21:15 Nasal Cannula 2 Laboratory Results 03/20/23 03/20/23 03/20/23 Range/Units 05:34 05:34 05:34 WBC 11.08 H (4.8-10.8) K/ul RBC 4.17 L (4.70-6.10) M/uL Hgb 13.4 L (14.0-18.0) g/dl Hct 39.7 L (42.0-52.0) % MCV 95.2 (80.0-100.0) fL MCH 32.1 (25.0-34.0) pg MCHC 33.8 (32.0-36.0) g/dL RDW Std Deviation 53.0 H (36.4-46.3) fL RDW Coeff of Anton 15.2 H (11.5-14.5) % Plt Count 213 (130-400) K/uL MPV 9.4 (9.4-12.4) fL Sodium 136 (136-145) mmol/L Potassium 3.8 (3.5-5.1) mmol/L Chloride 104 (98-107) mmol/L Carbon Dioxide 24 (21-32) mmol/L Anion Gap 8 (3-11) BUN 38 H (6-23) mg/dl Creatinine 2.03 H D (0.6-1.4) mg/dl Est Cr Clr Drug Dosing 32.5 ml/min Est GFR ( Amer) 33.9 ml/min Est GFR (Non-Af Amer) 29.2 ml/min BUN/Creatinine Ratio 18.7 (10-20) Glucose 92 (70-99(Fasting)) mg/dl Calcium 8.3 L (8.6-10.3) mg/dl Magnesium 1.8 (1.7-2.4) mg/dl Total Bilirubin (0.2-1.0) mg/dl Direct Bilirubin (0-0.2) mg/dl AST (13-39) U/L ALT (7-52) U/L Alkaline Phosphatase (34-104) U/L B-Natriuretic Peptide 1279 H (0-100) pg/ml Total Protein (6.0-8.3) gm/dl Albumin (3.4-5.0) gm/dl Adenovirus (PCR) (NotDetected) B. pertussis DNA (PCR) (NotDetected) B.parapertussis DNA PCR (NotDetected) C. pneumoniae DNA (PCR) (NotDetected) Coronavirus OC43 (PCR) (NotDetected) Coronavirus HKU1 (PCR) (NotDetected) Coronavirus 229E (PCR) (NotDetected) SARS-CoV-2 (PCR) (NotDetected) Coronavirus NL63 (PCR) (NotDetected) Human Metapneumovir PCR (NotDetected) Influenza Type A (PCR) (NotDetected) Influenza Type B (PCR) (NotDetected) M. pneumoniae (PCR) (NotDetected) Parainfluenza 1 (PCR) (NotDetected) Parainfluenza 2 (PCR) (NotDetected) Parainfluenza 3 (PCR) (NotDetected) Parainfluenza 4 (PCR) (NotDetected) RSV (PCR) (NotDetected) Entero/Rhino (PCR) (NotDetected) 03/19/23 03/19/23 03/19/23 Range/Units 17:10 09:45 09:45 WBC 10.09 (4.8-10.8) K/ul RBC 4.40 L (4.70-6.10) M/uL Hgb 14.1 (14.0-18.0) g/dl Hct 42.3 (42.0-52.0) % MCV 96.1 (80.0-100.0) fL MCH 32.0 (25.0-34.0) pg MCHC 33.3 (32.0-36.0) g/dL RDW Std Deviation 54.3 H (36.4-46.3) fL RDW Coeff of Anton 15.3 H (11.5-14.5) % Plt Count 199 (130-400) K/uL MPV 9.5 (9.4-12.4) fL Sodium 135 L (136-145) mmol/L Potassium 4.7 (3.5-5.1) mmol/L Chloride 105 (98-107) mmol/L Carbon Dioxide 20 L (21-32) mmol/L Anion Gap 10 (3-11) BUN 40 H (6-23) mg/dl Creatinine 2.44 H (0.6-1.4) mg/dl Est Cr Clr Drug Dosing 27.0 ml/min Est GFR ( Amer) 27.1 ml/min Est GFR (Non-Af Amer) 23.4 ml/min BUN/Creatinine Ratio 16.4 (10-20) Glucose 114 H (70-99(Fasting)) mg/dl Calcium 8.5 L (8.6-10.3) mg/dl Magnesium 1.9 (1.7-2.4) mg/dl Total Bilirubin 0.9 (0.2-1.0) mg/dl Direct Bilirubin 0.2 (0-0.2) mg/dl AST 16 (13-39) U/L ALT 7 (7-52) U/L Alkaline Phosphatase 111 H (34-104) U/L B-Natriuretic Peptide (0-100) pg/ml Total Protein 6.5 (6.0-8.3) gm/dl Albumin 3.2 L (3.4-5.0) gm/dl Adenovirus (PCR) Not Detected (NotDetected) B. pertussis DNA (PCR) Not Detected (NotDetected) B.parapertussis DNA PCR Not Detected (NotDetected) C. pneumoniae DNA (PCR) Not Detected (NotDetected) Coronavirus OC43 (PCR) Not Detected (NotDetected) Coronavirus HKU1 (PCR) Not Detected (NotDetected) Coronavirus 229E (PCR) Not Detected (NotDetected) SARS-CoV-2 (PCR) Not Detected (NotDetected) Coronavirus NL63 (PCR) Not Detected (NotDetected) Human Metapneumovir PCR Not Detected (NotDetected) Influenza Type A (PCR) Not Detected (NotDetected) Influenza Type B (PCR) Not Detected (NotDetected) M. pneumoniae (PCR) Not Detected (NotDetected) Parainfluenza 1 (PCR) Not Detected (NotDetected) Parainfluenza 2 (PCR) Not Detected (NotDetected) Parainfluenza 3 (PCR) Not Detected (NotDetected) Parainfluenza 4 (PCR) Not Detected (NotDetected) RSV (PCR) Not Detected (NotDetected) Entero/Rhino (PCR) Not Detected (NotDetected) Diagnostic Findings Chest X-Ray 03/20/23 06:00 XR chest 1V portable CLINICAL HISTORY: follow up COMPARISON STUDY: Chest radiograph March 19, 2023. FINDINGS: Left subclavian pacer/AICD is in place. Cardiomegaly is unchanged. There is no pneumothorax or pleural effusion. Calcified pleural plaques are again noted. Interstitial thickening and patchy bilateral opacities have slightly increased. IMPRESSION: Cardiomegaly. Slight increase in interstitial thickening and patchy bilateral opacities which reflect multifocal pneumonia or pulmonary edema. ACT 112: Negative or not required by law. Electronically signed by: Prashanth Osorio M.D. 03/20/2023 7:42 AM PG Care Time/CCT Total # of Minutes Spent Total Time Spent with Patient: Total time spent is greater than 50% in coordination of care (as documented) at patient's floor/unit and/or counseling patient: Coding Level of Care Code 16680 SUB INP/OBS CARE 3/50MIN Diagnoses Acute metabolic encephalopathy G93.41 UTI (urinary tract infection) N39.0 Hypoxia R09.02 Abnormal TSH R79.89 Wound of lower extremity S81.809A Chronic combined systolic and diastolic CHF (congestive heart failure) I50.42 Anabel-prosthetic fracture around prosthetic hip M97.8XXD; Z96.649 Encounter type: subsequent encounter CKD (chronic kidney disease) N18.9 Ischemic cardiomyopathy I25.5 Elevated troponin R77.8 COPD (chronic obstructive pulmonary disease) J44.9 COPD type: unspecified COPD Paroxysmal atrial flutter I48.92 Coronary artery disease I25.10 Associated angina: without angina Coronary Disease-Associated Artery/Lesion type: [place] artery [place] vs. transplanted heart: [place] heart History of pulmonary embolism Z86.711 Hypertension I10 Hypertension type: essential hypertension PAD (peripheral artery disease) I73.9 Constipation K59.00 Elevated alkaline phosphatase level R74.8 (7) Anabel-prosthetic fracture around prosthetic hip Encounter type: subsequent encounter Qualified Code(s): M97.8XXD - Periprosthetic fracture around other internal prosthetic joint, subsequent encounter; Z96.649 - Presence of unspecified artificial hip joint (11) COPD (chronic obstructive pulmonary disease) COPD type: unspecified COPD Qualified Code(s): J44.9 - Chronic obstructive pulmonary disease, unspecified (13) Coronary artery disease Associated angina: without angina Coronary Disease-Associated Artery/Lesion type: [place] artery [place] vs. transplanted heart: [place] heart Qualified Code(s): I25.10 - Atherosclerotic heart disease of [place] coronary artery without angina pectoris (15) Hypertension Hypertension type: essential hypertension Qualified Code(s): I10 - Essential (primary) hypertension
[2023-03-20] MEDS: AMIODARONE 200 MG TAB PO SCH (08:50)
[2023-03-20] MEDS: CHOLECALCIFEROL 1,000 UNITS 25 MCG TAB PO SCH (08:50)
[2023-03-20] MEDS: lisinopril 2.5 MG TAB PO SCH (08:50)
[2023-03-20] MEDS: ASPIRIN 81 MG ECTAB PO SCH (08:50)
[2023-03-20] MEDS: DOCUSATE SODIUM/SENNA 50/8.6MG TAB PO SCH (08:51)
[2023-03-20] MEDS: FLUTICASONE/VILANTEROL 100/25MCG 14 PUFFS/INHALER INH SCH (08:51)
[2023-03-20] MEDS: FUROSEMIDE 40 MG TAB PO SCH (08:51)
[2023-03-20 08:56] LABS: Basophils # (auto) 0.07 K/uL (0.00-0.20); Basophils % (auto) 0.6 %; Eosinophils # (auto) 0.22 K/uL (0.00-0.50); Immature Granulocytes # (auto) 0.05 K/uL (0.01-0.20); Immature Granulocytes % (auto) 0.4 %; Lymphocytes # (auto) 0.81 K/uL (1.20-3.40); Lymphocytes % (auto) 7.2 %; Monocytes # (auto) 1.04 K/uL (0.11-0.59); Monocytes % (auto) 9.3 %; Neutrophils # (auto) 8.99 K/uL (1.40-6.50); Neutrophils % (auto) 80.5 %
[2023-03-20] MEDS: APIXABAN 2.5 MG TAB PO SCH ×2 (10:25→21:44)
[2023-03-20] MEDS ORDERED: FUROSEMIDE 40 MG/4 ML VIAL IV ONE (13:00)
[2023-03-20] MEDS ORDERED: ACETAMINOPHEN 500 MG TAB PO PRN (14:54)
--- NOTE | 2023-03-20 15:06 | Communication Note ---
Date of Service: March 20, 2023 Given CrCl >30, will give dose Dapto x 1 for coverage. Continue dosing ordered Q48H for tomorrow and if CrCl still >30 will plan to change to Q24H dosing but if <30 would continue Q48H dosing. Continue to monitor CrCl/adjustment of dosing as needed
[2023-03-20] MEDS ORDERED: DAPTOmycin 500 MG in SYRINGE 0 ML IV ONE (15:30)
[2023-03-20] MEDS ORDERED: POTASSIUM CHLORIDE CRTAB 20 MEQ TABCR PO STA (16:50)
[2023-03-20] MEDS: MAGNESIUM OXIDE 400 MG TAB PO SCH (18:40)
[2023-03-20] MEDS: METOPROLOL SUCC 25MG EXT REL TAB PO SCH (21:43)
[2023-03-20] MEDS: MELATONIN 3 MG TAB PO SCH (21:43)
[2023-03-20] MEDS: cefTRIAXone SODIUM 2,000 MG in DEXTROSE 5% 50 ML IV SCH (21:48)
[2023-03-21] MEDS: NYSTATIN SUSP 500,000 U/5 ML UDC PO SCH ×5 (00:25→23:24)
[2023-03-21 07:42] LABS: Basophils # (auto) 0.07 K/uL (0.00-0.20); Basophils % (auto) 0.6 %; Eosinophils # (auto) 0.21 K/uL (0.00-0.50); Eosinophils % (auto) 1.8 %; Hematocrit (blood only) 41.1 % (42.0-52.0); Hemoglobin 13.5 g/dl (14.0-18.0); Immature Granulocytes # (auto) 0.06 K/uL (0.01-0.20); Immature Granulocytes % (auto) 0.5 %; Lymphocytes # (auto) 0.65 K/uL (1.20-3.40); Lymphocytes % (auto) 5.6 %; Mean Corpuscular Hgb Conc 32.8 g/dL (32.0-36.0); Mean Corpuscular Volume 94.5 fL (80.0-100.0); Mean Platelet Volume 9.6 fL (9.4-12.4); Monocytes # (auto) 1.08 K/uL (0.11-0.59); Monocytes % (auto) 9.4 %; Neutrophils # (auto) 9.44 K/uL (1.40-6.50); Neutrophils % (auto) 82.1 %; Platelet Count 219 K/uL (130-400); RDW Coefficient of Variation 15.1 % (11.5-14.5); RDW Standard Deviation 52.3 fL (36.4-46.3); Red Blood Count 4.35 M/uL (4.70-6.10); White Blood Count 11.51 K/ul (4.8-10.8)
--- NOTE | 2023-03-21 08:02 | Hospitalist Progress Note ---
Date of Service March 21, 2023 Assessment & Plan (1) UTI (urinary tract infection): Plan: Bills catheter associated UTI, presented w/ AMS (now resolved) Urine culture from [place] with E. coli, Proteus and Enterococcus. Obtained records from [facility]-E. coli pansensitive, Proteus resistant to ampicillin and cefazolin, as well as tetracycline, and Enterococcus resistant to tetracycline Patient with Bills catheter in place since his fall in January, changed twice (most recently 03/16), no hx MDR organisms Bills remaining in place given limited mobility which is now being advanced per orthopedics, able to bear weight. Consider voiding trial if able to make improvement to prevent repeated infections. Otherwise will need continued f/u and urology/voiding trial at discharge Information obtained from [facility] -- cx w/ Ecoli/proteus and enterococcus D/c Zosyn given not cover Proteus and Zosyn not rec'd for Enterococcus Placed on Ceftriaxone (cover for Ecoli/Proteus) + Dapto for coverage enteroccocus. MRSA nasal NEGATIVE (no need to be on Vanco for pulm coverage for PNA on Xray) Day FIVE of therapy 03/21. Given Dapto dose x 1 given improvement in CrCl and changing to Q24H dosing for today given continued stability Blood cultures -- NGTD -- monitor CK w/o significant elevation (2) Chronic combined systolic and diastolic CHF (congestive heart failure): Plan: Acute on chronic combined systolic and diastolic CHF Most recent EF 30-35% with wall motion abnormalities, also with right heart failure, moderate-severe MR, and mild AI in 11/2022 With lower extremity edema here that he states is his chronic amount, wheezing and crackles on examination and chest x-ray consistent with pulmonary edema Stopped IV fluids started on admission Restarted his lasix 40mg PO daily Remains on Toprol XL Appears lisinopril possible discontinued at longterm but given CHF, resumed 03/19 w/ stable blood pressures and tolerating well/renal function improved Additional 40mg IV x 1 afternoon 03/20. net negative 1.9L Repeating 40mg IV x 1 again this afternoon 03/21. Continues on 40mg PO daily but consider increasing at dc as well/monitor for additional needs Not on entresto/SGLT2/spironolactone due to renal failure per CHF notes Weights, I&Os Monitor CXR in AM (3) Acute metabolic encephalopathy: Plan: 82yo male with multiple medical comorbidities presents from [facility] with progressive confusion, auditory and visual hallucinations. Delirium likely secondary to UTI. Workup otherwise with mild elevation of WBC=11.4. Electrolytes normal with exception of mild hyponatremia Km=279. BUN=43, Cr=2.75 which is slightly increased from baseline. Ammonia normal. TSH mildly elevated at 7 but would not likely cause this degree of delirium. CT Head with no acute issue. Now completely resolved with treatment with IV antibiotics for UTI AAO x3 and able to recall numerous details of his recent history including his delirium/hallucination findings he voiced to staff at rehab -Continue treatment for UTI -Delirium prevention strategies with frequent orientation, maintenance of sleep/wake cycles when able. Patient would benefit from undisturbed sleep, no PM vital signs if they are stable. Avoidance of potential delirium-inducing agents -Maintain fall precautions -Melatonin qHS as needed insomnia WBC elevation, ?from his CHF/volume overload. 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 With delirium likely more from UTI, but does have some cough and wheeze but also with chronic lung disease Zosyn would also cover for pneumonia but now switched to ceftriaxone Supplemental O2 as needed -- currently 94% IVF stopped as provided on admission, home lasix 40mg PO daily restarted 03/17 with improvement and will continue Continue home COPD inhalers Hypoxic while sleeping afternoon 03/19, to have been using 2L HS but hadn't been. No known hx underlying LEONIDES but could be suspected CXR on repeat w/ slight worsening, increased O2 requirement and suspecting needing additional dose diuretics, renal function stable and improved Biofire negative Lasix usual 40mg PO Given 40mg IV x 1 afternoon 03/20 and repeating again for today given congestion/improvement in renal function and suspect pulmonary edema Continues on Rocephin/Dapto as above, MRSA nares negative Follow CXR to resolution (6) Aanbel-prosthetic fracture around prosthetic hip: Plan: Patient admitted to [facility] following a fall resulting in a anabel-prosthetic fracture of the left hip. He maintains non-weight bearing status. Has been following with Orthopedic Surgery - last seen 03/10/23. During that time was complaining of pain with motion. He had X-rays obtained which showed the fracture in good alignment. He was progressed to weight bearing of the LLE as tolerated. PT evaluation for ambulation as tolerated LLE weight bearing with caution Voiding trial to be attempted if improvement w/ ambulation/strength w/ treatment of infection (no significant improvement and does not want removed until able to do such) He is to followup with Ortho in another 6 weeks. (7) Ischemic cardiomyopathy: Plan: AICD in place - done in December by Dr. Mary. Restarting Lasix as noted above Continues metoprolol 25mg po qPM Was discharged from [facility] on Lisinopril 2.5mg po daily - not on his current medication list. Held due to poor renal function -- resumed as above s/p cardioversion as above 03/19 (8) Elevated troponin: Plan: Patient denies chest pain. No acute ischemic changes Serial troponin stable at 42/41 Likely myocardial demand ischemia in the setting of hypoxia and acute illness with underlying CAD (9) COPD (chronic obstructive pulmonary disease): Plan: Chronic cough. With wheezing here. Daughter states that his O2 level will often drop at night. He does not wear CPAP or other devices. -Continue Breo Ellipta daily -Duoneb q 6 hours PRN SOB -Supplemental O2 qHS (had not been using) Suspect he does likely have underlying LEONIDES --> f/u PCP at or for further testing/discussion (10) Paroxysmal atrial flutter: Plan: V-paced on EKG. -Continued Amiodarone 200mg po BID --> reduced to 200mg daily per Dr Mary/cardioversion as above, started synthroid -Continue Apixaban 2.5mg po BID -Continue metoprolol 25mg po qHS s/p cardioversion 03/[address] Mary, jain of NSR (11) Coronary artery disease: Plan: Remote history of RCA stent With myocardial demand ischemia as noted above -Continue apixaban, metoprolol. Aspirin added back 03/17 which was not on his home med rec. Noting patient statin intolerant (12) History of pulmonary embolism: Plan: Continue Eliquis (13) Hypertension: Plan: Blood pressures are controlled Continue home metoprolol, lisinopril 2.5mg resumed as above, no hypotension, BP stable Lasix resumed as above given CHF and BPs remaining stable w/ additional IV lasix as well Monitor (14) PAD (peripheral artery disease): Plan: With stent in the groin, history of carotid artery stenosis Continue aspirin and is intolerant of statins (15) Constipation: Plan: Was a major issue last admission but seems to be improved Continue senna/docusate, MiraLAX as needed BM reported 03/20 (16) Elevated alkaline phosphatase level: Plan: bony from hip fracture vs liver from amiodarone and/or hepatic congestion from CHF? Total bilirubin mildly elevated and has been for quite some time No abdominal pain or tenderness, no need for abdominal imaging at present Repeat LFTs w/ TB normalized (suspect from hepatic congestion, ALP now upper limits of normal w/ continued diuretics) Reduced amio as above to 200mg daily (17) Wound of lower extremity: Plan: Secondary to recent fall with sutures under left fifth toe and multiple small wounds on legs Consulted wound care while inpatient Sutures removed 03/19 (18) Abnormal TSH: Plan: TSH continues to trend upward since November, now up to 7.7 with normal free T4 Most likely secondary to amiodarone therapy Consulted cardiology to discuss weaning off amiodarone and potentially starting another antiarrhythmic versus rate control strategy? Dr Trejo saw , rec possible stopping amiodarone but consideration for cardioversion to be considered and Dr Mary to see Started Synthroid 25mcg daily -- continue while on amiodarone therapy, decreased to 200mg daily s/p cardioversion AM 03/[address] Mary , tolerated well Plan Disposition-continued stay on telemetry, PT/OT consulted, needs a new authorization to return to [facility]. Continued inpatient stay, additional IV lasix for today and consider increasing daily lasix Dapto changed to Q24 hour dosing, remains on Ceftriaxone for coverage of UTI/pulm coverage as well. Monitor CXR on repeat Awaiting rehab, additional ref sent (bad experience [facility] per daughter) and CM following. Of note, patient has threatened about going home if not getting out of the hospital soon. Reassurance provided. He is frustrated about continued hospitalizations. Consider voiding trial if making advancements with therapy (per nursing, at least getting to sit at edge of bed yesterday and attempting again today) Admission and Anticipated Discharge Date Admission Date: March 17, 2023 Supervising Physician Co-Signing Physician Notes The patient was not seen by me. The chart was reviewed. Case discussed with GABBY Levi. Agree with assessment and plan Subjective Patient evaluated this morning. Sleeping, remains on 2L while resting. Discussed additional diuretics, urine clear in bills/renal function improving. Denies fever/chills, chest pain, breathing reported stable. Sat at side of bed yesterday with nursing and they are going to attempt again today. Questions/concerns addressed at this time. Physical Exam Physical Exam: General: WD/WN chronically ill appearing male sleeping upon arrival, NAD HEENT: head normocephalic, atraumatic,trachea midline Resp: rales L base/diminished,+ wet cough, on 2L sleeping CV: regular rate/rhythm, 1+ b/l LE edema, calves nontender GI: +BS, soft/NT : bills draining clear yellow urine MSK/Neuro: some pain w/ ROM LEFT hip, no active hematoma/bleeding/lesions sutures to L foot removed 03/19, no surrounding cellulitis Psych: AOx3, cooperative with exam Results & Data Results & Data Vital Signs (Past 12 Hours) Vital Signs Temp Pulse Pulse Resp BP Pulse Ox O2 Del Method 03/21/23 07:48 70 16 116/72 95 Nasal Cannula 03/20/23 21:37 36.3 C L 73 20 115/70 93 Nasal Cannula O2 Flow Rate 03/21/23 07:48 2 03/20/23 21:37 2 Laboratory Results 03/21/23 03/21/23 03/21/23 Range/Units Unknown 06:46 06:46 WBC 11.51 H (4.8-10.8) K/ul RBC 4.35 L (4.70-6.10) M/uL Hgb 13.5 L (14.0-18.0) g/dl Hct 41.1 L (42.0-52.0) % MCV 94.5 (80.0-100.0) fL MCH 31.0 (25.0-34.0) pg MCHC 32.8 (32.0-36.0) g/dL RDW Std Deviation 52.3 H (36.4-46.3) fL RDW Coeff of Anton 15.1 H (11.5-14.5) % Plt Count 219 (130-400) K/uL MPV 9.6 (9.4-12.4) fL Immature Gran % (Auto) 0.5 % Neut % (Auto) 82.1 % Lymph % (Auto) 5.6 % [place] % (Auto) 9.4 % Eos % (Auto) 1.8 % Baso % (Auto) 0.6 % Neut # (Auto) 9.44 H (1.40-6.50) K/uL Lymph # (Auto) 0.65 L (1.20-3.40) K/uL [place] # (Auto) 1.08 H (0.11-0.59) K/uL Eos # (Auto) 0.21 (0.00-0.50) K/uL Baso # (Auto) 0.07 (0.00-0.20) K/uL Immature Gran # (Auto) 0.06 (0.01-0.20) K/uL Sodium 137 (136-145) mmol/L Potassium 4.4 (3.5-5.1) mmol/L Chloride 103 (98-107) mmol/L Carbon Dioxide 26 (21-32) mmol/L Anion Gap 8 (3-11) BUN 35 H (6-23) mg/dl Creatinine 1.90 H (0.6-1.4) mg/dl Est Cr Clr Drug Dosing 34.7 ml/min Est GFR ( Amer) 36.7 ml/min Est GFR (Non-Af Amer) 31.7 ml/min BUN/Creatinine Ratio 18.4 (10-20) Glucose 88 (70-99(Fasting)) mg/dl Calcium 8.5 L (8.6-10.3) mg/dl Magnesium 1.9 (1.7-2.4) mg/dl Total Bilirubin 0.9 (0.2-1.0) mg/dl AST 17 (13-39) U/L ALT 9 (7-52) U/L Alkaline Phosphatase 103 (34-104) U/L Total Protein 6.2 (6.0-8.3) gm/dl Albumin 3.0 L (3.4-5.0) gm/dl Globulin 3.2 (2.5-4.0) gm/dl Albumin/Globulin Ratio 0.9 (0.9-2) Urine Color Pending Urine Appearance Pending Urine pH Pending Ur Specific [place] Pending Urine Protein Pending Urine Glucose (UA) Pending Urine Ketones Pending Urine Blood Pending Urine Nitrite Pending Urine Bilirubin Pending Urine Urobilinogen Pending Ur Leukocyte Esterase Pending Diagnostic Findings Chest X-Ray 03/21/23 06:00 XR chest 1V portable HISTORY: follow up congestion vs pna COMPARISON: Chest 03/20/2023. FINDINGS: No pneumothorax. The cardiac silhouette remains enlarged. Chronic elevation the right hemidiaphragm and low lung volumes again noted. There is a left-sided pacemaker/defibrillator. Slight progression of the diffuse interstitial thickening and hazy bilateral airspace opacities. Suspect trace bilateral pleural effusions. IMPRESSION: Slight progression of the diffuse interstitial thickening and hazy bilateral airspace opacities. This favors progressive pulmonary edema. ACT 112: Negative or not required by law. Electronically signed by: Jose D Heredia M.D. 03/21/2023 8:16 AM PG Care Time/CCT Total # of Minutes Spent Total Time Spent with Patient: Total time spent is greater than 50% in coordination of care (as documented) at patient's floor/unit and/or counseling patient: Coding Level of Care Code 84122 SUB INP/OBS CARE 3/50MIN Diagnoses UTI (urinary tract infection) N39.0 Chronic combined systolic and diastolic CHF (congestive heart failure) I50.42 Acute metabolic encephalopathy G93.41 CKD (chronic kidney disease) N18.9 Hypoxia R09.02 Anabel-prosthetic fracture around prosthetic hip M97.8XXD; Z96.649 Encounter type: subsequent encounter Ischemic cardiomyopathy I25.5 Elevated troponin R77.8 COPD (chronic obstructive pulmonary disease) J44.9 COPD type: unspecified COPD Paroxysmal atrial flutter I48.92 Coronary artery disease I25.10 Associated angina: without angina Coronary Disease-Associated Artery/Lesion type: [place] artery [place] vs. transplanted heart: [place] heart History of pulmonary embolism Z86.711 Hypertension I10 Hypertension type: essential hypertension PAD (peripheral artery disease) I73.9 Constipation K59.00 Elevated alkaline phosphatase level R74.8 Wound of lower extremity S81.809A Abnormal TSH R79.89 (6) Anabel-prosthetic fracture around prosthetic hip Encounter type: subsequent encounter Qualified Code(s): M97.8XXD - Periprosthetic fracture around other internal prosthetic joint, subsequent enco unter; Z96.649 - Presence of unspecified artificial hip joint (9) COPD (chronic obstructive pulmonary disease) COPD type: unspecified COPD Qualified Code(s): J44.9 - Chronic obstructive pulmonary disease, unspecified (11) Coronary artery disease Associated angina: without angina Coronary Disease-Associated Artery/Lesion type: [place] artery [place] vs. transplanted heart: [place] heart Qualified Code(s): I25.10 - Atherosclerotic heart disease of [place] coronary artery without angina pectoris (13) Hypertension Hypertension type: essential hypertension Qualified Code(s): I10 - Essential (primary) hypertension
[2023-03-21 08:03] LABS: Albumin Globulin Ratio 0.9 (0.9-2); BUN Creatinine Ratio 18.4 (10-20); Bilirubin,Total 0.9 mg/dl (0.2-1.0); Calcium 8.5 mg/dl (8.6-10.3); Creatinine Clr Calc Pharmacy 34.7 ml/min; Est GFR (African American) 36.7 ml/min; Est GFR (Non-African American) 31.7 ml/min; Globulin 3.2 gm/dl (2.5-4.0); Magnesium 1.9 mg/dl (1.7-2.4); Potassium 4.4 mmol/L (3.5-5.1); Total Protein 6.2 gm/dl (6.0-8.3)
[2023-03-21] MEDS: LEVOTHYROXINE SODIUM 25 MCG TABLET PO SCH (08:04)
[2023-03-21] MEDS: APIXABAN 2.5 MG TAB PO SCH ×2 (08:05→20:45)
[2023-03-21] MEDS: CHOLECALCIFEROL 1,000 UNITS 25 MCG TAB PO SCH (08:05)
[2023-03-21] MEDS: ASPIRIN 81 MG ECTAB PO SCH (08:05)
[2023-03-21] MEDS: MAGNESIUM OXIDE 400 MG TAB PO SCH (08:05)
[2023-03-21] MEDS: FUROSEMIDE 40 MG TAB PO SCH (08:05)
[2023-03-21] MEDS: AMIODARONE 200 MG TAB PO SCH (08:05)
[2023-03-21] MEDS: lisinopril 2.5 MG TAB PO SCH (08:06)
[2023-03-21] MEDS: DOCUSATE SODIUM/SENNA 50/8.6MG TAB PO SCH (08:06)
[2023-03-21] MEDS: FLUTICASONE/VILANTEROL 100/25MCG 14 PUFFS/INHALER INH SCH (08:06)
--- NOTE | 2023-03-21 08:17 | XRay Report ---
XR chest 1V portable HISTORY: follow up congestion vs pna COMPARISON: Chest 03/20/2023. FINDINGS: No pneumothorax. The cardiac silhouette remains enlarged. Chronic elevation the right hemid iaphragm and low lung volumes again noted. There is a left-sided pacemaker/defibrillator. Slight prog ression of the diffuse interstitial thickening and hazy bilateral airspace opacities. Suspect trace b ilateral pleural effusions. IMPRESSION: Slight progression of the diffuse interstitial thickening and hazy bilateral airspace opacities. This favors progressive pulmonary edema. ACT 112: Negative or not required by law. Electronically signed by: Jose D Heredia M.D. 03/21/2023 8:16 AM
[2023-03-21] MEDS ORDERED: FUROSEMIDE 40 MG/4 ML VIAL IV ONE (12:00)
[2023-03-21 12:01] LABS: Appearance Urine Clear (Clear); Bilirubin Urine Negative (Negative); Blood Urine Negative (Negative); Color Urine Yellow; Glucose Urine UA Negative (Negative); Ketones Urine Negative (Negative); Leukocyte Esterase Urine Negative (Negative); Nitrite Urine Negative (Negative); Protein Urine Negative (Negative); Specific Gravity Urine 1.009 (1.000-1.030); Urobilinogen Urine Negative (Negative)
[2023-03-21] MEDS: DAPTOmycin 500 MG in SYRINGE 0 ML IV SCH (13:29)
[2023-03-21] MEDS: METOPROLOL SUCC 25MG EXT REL TAB PO SCH (20:45)
[2023-03-21] MEDS: MELATONIN 3 MG TAB PO SCH (20:45)
[2023-03-21] MEDS: cefTRIAXone SODIUM 2,000 MG in DEXTROSE 5% 50 ML IV SCH (20:45)
[2023-03-22] MEDS: NYSTATIN SUSP 500,000 U/5 ML UDC PO SCH ×3 (05:39→17:36)
[2023-03-22] MEDS: LEVOTHYROXINE SODIUM 25 MCG TABLET PO SCH (05:39)
[2023-03-22 07:23] LABS: Basophils # (auto) 0.07 K/uL (0.00-0.20); Basophils % (auto) 0.5 %; Eosinophils # (auto) 0.16 K/uL (0.00-0.50); Eosinophils % (auto) 1.2 %; Hematocrit (blood only) 40.3 % (42.0-52.0); Hemoglobin 13.3 g/dl (14.0-18.0); Immature Granulocytes # (auto) 0.06 K/uL (0.01-0.20); Immature Granulocytes % (auto) 0.5 %; Lymphocytes # (auto) 0.63 K/uL (1.20-3.40); Lymphocytes % (auto) 4.8 %; Mean Corpuscular Hemoglobin 31.3 pg (25.0-34.0); Mean Corpuscular Volume 94.8 fL (80.0-100.0); Mean Platelet Volume 9.7 fL (9.4-12.4); Monocytes # (auto) 1.08 K/uL (0.11-0.59); Monocytes % (auto) 8.2 %; Neutrophils # (auto) 11.21 K/uL (1.40-6.50); Neutrophils % (auto) 84.8 %; Platelet Count 226 K/uL (130-400); RDW Coefficient of Variation 15.5 % (11.5-14.5); RDW Standard Deviation 53.5 fL (36.4-46.3); Red Blood Count 4.25 M/uL (4.70-6.10); White Blood Count 13.21 K/ul (4.8-10.8)
[2023-03-22 07:41] LABS: Albumin Globulin Ratio 0.9 (0.9-2); Albumin Level 2.9 gm/dl (3.4-5.0); BUN Creatinine Ratio 17.3 (10-20); Calcium 8.6 mg/dl (8.6-10.3); Creatinine Clr Calc Pharmacy 30.8 ml/min; Est GFR (African American) 31.8 ml/min; Est GFR (Non-African American) 27.4 ml/min; Globulin 3.3 gm/dl (2.5-4.0); Magnesium 1.7 mg/dl (1.7-2.4); Potassium 4.2 mmol/L (3.5-5.1); Total Protein 6.2 gm/dl (6.0-8.3)
--- NOTE | 2023-03-22 07:49 | XRay Report ---
XR chest 1V portable CLINICAL HISTORY: follow up pulmonary edema/congestion COMPARISON STUDY: Chest radiograph March 21, 2023. FINDINGS: Left subclavian pacer is in place. There is no pneumothorax. Trace bilateral pleural effusi ons. Interstitial thickening and bilateral airspace opacities persist. There has been no significant change in appearance of the chest. IMPRESSION: No significant change in interstitial thickening and patchy bilateral airspace opacities . This favors pulmonary edema however an infectious process could appear similar. ACT 112: Negative or not required by law. Electronically signed by: Prashanth Osorio M.D. 03/22/2023 7:47 AM
[2023-03-22] MEDS: CHOLECALCIFEROL 1,000 UNITS 25 MCG TAB PO SCH (08:12)
[2023-03-22] MEDS: ASPIRIN 81 MG ECTAB PO SCH (08:12)
[2023-03-22] MEDS: AMIODARONE 200 MG TAB PO SCH (08:12)
[2023-03-22] MEDS: FUROSEMIDE 40 MG TAB PO SCH (08:12)
[2023-03-22] MEDS: MAGNESIUM OXIDE 400 MG TAB PO SCH (08:12)
[2023-03-22] MEDS: lisinopril 2.5 MG TAB PO SCH (08:12)
[2023-03-22] MEDS: APIXABAN 2.5 MG TAB PO SCH ×2 (08:12→21:59)
[2023-03-22] MEDS: DOCUSATE SODIUM/SENNA 50/8.6MG TAB PO SCH (08:13)
[2023-03-22] MEDS: FLUTICASONE/VILANTEROL 100/25MCG 14 PUFFS/INHALER INH SCH (08:13)
[2023-03-22] MEDS ORDERED: MAGNESIUM SULFATE / D5W 1 GM/100 ML BAG IV ONE (10:01)
[2023-03-22 10:27] LABS: Allen Test Pos (Pos); Base Excess ABG 3.3 mEq/L (-9-1.8); HCO3 ABG 28 mmol/L (19-24); Oxygen Saturation ABG 90.7 % (90-95); PCO2 ABG 41 mmHg (35-46); PO2 ABG 59 mmHg (80-95); pH ABG 7.44 (7.35-7.45)
--- NOTE | 2023-03-22 13:39 | Hospitalist Progress Note ---
Date of Service March 22, 2023 Assessment & Plan (1) Acute metabolic encephalopathy: Plan: 82yo male with multiple medical comorbidities [facility] with progressive confusion, auditory and visual hallucinations. Delirium likely secondary to UTI. Workup otherwise with mild elevation of WBC=11.4. Electrolytes normal with exception of mild hyponatremia Ju=[id number]. BUN=43, Cr=2.75 which is slightly increased from baseline. Ammonia normal. TSH mildly elevated at 7 but would not likely cause this degree of delirium. CT Head with no acute issue. Now completely resolved with treatment with IV antibiotics for UTI AAO x3 and able to recall numerous details of his recent history including his delirium/hallucination findings he voiced to staff at rehab -Continue treatment for UTI -Delirium prevention strategies with frequent orientation, maintenance of sleep/wake cycles when able. Patient would benefit from undisturbed sleep, no PM vital signs if they are stable. Avoidance of potential delirium-inducing agents -Maintain fall precautions -Melatonin qHS as needed insomnia (2) UTI (urinary tract infection): Plan: Nguyễn catheter associated UTI, presented w/ acute encephalopathy (now resolved) Urine culture from [place] with E. coli, Proteus and Enterococcus. Obtained records from [facility]-E. coli pansensitive, Proteus resistant to ampicillin and cefazolin, as well as tetracycline, and Enterococcus resistant to tetracycline Patient with Nguyễn catheter in place since his fall in January, changed twice (most recently 03/16) Nguễyn remaining in place given limited mobility which is now being advanced per orthopedics, able to bear weight. Consider voiding trial if able to make improvement to prevent repeated infections. Otherwise will need continued f/u and urology/voiding trial at discharge WBC count back up slightly to 13 but remains afebrile, repeat UA no infection -continue Ceftriaxone (coverage for Ecoli/Proteus) + Dapto for coverage for En teroccocus. MRSA nasal NEGATIVE (no need to be on Vanco for pulm coverage for PNA on Xray) -Last day of therapy will be end of 03/23 -Blood cultures -- NGTD -follow CBC, BMP (3) Chronic combined systolic and diastolic CHF (congestive heart failure): Plan: Acute on chronic combined systolic and diastolic CHF Most recent EF 30-35% with wall motion abnormalities, also with right heart failure, moderate-severe MR, and mild AI in 11/2022 With lower extremity edema here that he states is his chronic amount, wheezing and crackles on examination and chest x-ray consistent with pulmonary edema Has been receiving some intermittent IV lasix here and remains on 5LNC supplementall O2, still w/ pulm edema on CXR and on exam -continue lasix 40mg PO daily and give IV lasix 40mg x 1 this afternoon -continue Toprol XL -[facility]ars [facility] but given CHF, resumed 03/19 w/ stable blood pressures and tolerating well/renal function improved -Not on entresto/SGLT2/spironolactone due to renal failure per CHF notes -continue daily Weights, I&Os -follow BMP, magnesium and replace lytes as needed-give 1 gram IV magnesium today (4) CKD (chronic kidney disease): Plan: 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 With delirium likely more from UTI, but does have some cough and wheeze but also with chronic lung disease Supplemental O2 as needed -continues to require 5LNC Hypoxic while sleeping afternoon 03/19, to have been using 2L HS but hadn't been. No known hx underlying LEONIDES but could be suspected CXR on repeat w/ slight worsening, increased O2 requirement and suspecting needing additional dose diuretics, renal function stable and improved Biofire negative -continue ceftriaxone for PNA -make DUonebs scheduled tid given ongoing wheezing and hypoxia -Continue home COPD inhalers -wean off O2 as able to (6) Fletcher-prosthetic fracture around prosthetic hip: Plan: Patient admitted to [facility] following a fall resulting in a fletcher-prosthetic fracture of the left hip. Has been following with Orthopedic Surgery - last seen 03/10/23. During that time was complaining of pain with motion. He had X- rays obtained which showed the fracture in good alignment. He was progressed to weight bearing of the LLE as tolerated. PT evaluation for ambulation as tolerated LLE weight bearing with caution Voiding trial to be attempted if improvement w/ ambulation/strength w/ treatment of infection (no significant improvement and does not want removed until able to do such) He is to followup with Ortho in another 6 weeks. (7) Ischemic cardiomyopathy: Plan: AICD in place - done in December by Dr. Mary. meds as above s/p cardioversion as above 03/19 (8) Elevated troponin: Plan: Patient denies chest pain. No acute ischemic changes Serial troponin stable at 42/41 Likely myocardial demand ischemia in the setting of hypoxia and acute illness with underlying CAD (9) COPD (chronic obstructive pulmonary disease): Plan: Chronic cough. With wheezing here. Daughter states that his O2 level will often drop at night. He does not wear CPAP or other devices. -Continue Breo Ellipta daily -Duoneb change to scheduled tid for ongoing wheezing, has not received a single neb treatment thus far this admission despite hypoxia -Suspect he does likely have underlying LEONIDES --> [facility] for further testing/discussion -continue supplemental O2 to keep POx> 89% (10) Paroxysmal atrial flutter: Plan: V-paced on EKG.had cardioversion during this admission -reduced amiodarone to 200mg daily per Dr Mary because of thyroid dysfunction -Continue Apixaban 2.5mg po BID -Continue metoprolol 25mg po qHS (11) Coronary artery disease: Plan: Remote history of RCA stent With myocardial demand ischemia as noted above -Continue apixaban, metoprolol. -Aspirin added back 03/17 which was not on his home med rec. Noting patient statin intolerant (12) History of pulmonary embolism: Plan: -Continue Eliquis (13) Hypertension: Plan: Blood pressures are controlled Continue home metoprolol, lisinopril 2.5mg resumed as above, no hypotension, BP stable Lasix resumed as above given CHF and BPs remaining stable w/ additional IV lasix as well Monitor (14) PAD (peripheral artery disease): Plan: With stent in the groin, history of carotid artery stenosis Continue aspirin and is intolerant of statins (15) Constipation: Plan: Was a major issue last admission but seems to be improved Continue senna/docusate, MiraLAX as needed BM reported 03/20 (16) Elevated alkaline phosphatase level: Plan: bony from hip fracture vs liver from amiodarone and/or hepatic congestion from CHF? Total bilirubin mildly elevated and has been for quite some time No abdominal pain or tenderness, no need for abdominal imaging at present Repeat LFTs w/ TB normalized (suspect from hepatic congestion, ALP now upper limits of normal w/ continued diuretics) Reduced amio as above to 200mg daily (17) Wound of lower extremity: Plan: Secondary to recent fall with sutures under left fifth toe and multiple small wounds on legs Consulted wound care while inpatient Sutures removed 03/19 (18) Abnormal TSH: Plan: TSH continues to trend upward since November, now up to 7.7 with normal free T4 Most likely secondary to amiodarone therapy Consulted cardiology to discuss weaning off amiodarone and potentially starting another antiarrhythmic versus rate control strategy-cardioverted and reduced amiodarone dose to 200mg daily -Started Synthroid 25mcg daily -follow TSH in 6 weeks Plan Disposition-continued stay while weaning off O2 and diuresing, awaiting rehab spot Admission and Anticipated Discharge Date Admission Date: March 17, 2023 Subjective Pt drowsy today for nursing earlier and RN was concerned. ABG ordered and is fine as far as pH and PaCO2. Pt wakes up fine for me and answers all questions appropriately. Says he's always wheezing and hasn't received a single neb treatment since admission. Physical Exam Constitutional: WD/WN, vitals as above Neck: trachea midline, no thyromegaly Respiratory: normal respiratory effort Auscultation: + crackles (bibasilar) and + wheezes (bilat) Cardiovascular: Rate/Rhythm: regular rate and regular rhythm Vessels: dorsalis pedis pulses present Extremities: + edema (1+ pitting edema legs bilat) Gastrointestinal (Abdomen): normal bowel sounds, soft, nontender, no hepatosplenomegaly Neurologic: moves all extremities and awake; no focal motor deficits Psychiatric: A+Ox3, euthymic affect Results & Data Results & Data Vital Signs (Past 12 Hours) Vital Signs Temp Pulse Resp BP Pulse Ox O2 Del Method O2 Flow Rate 03/22/23 08:00 Nasal Cannula 5 03/22/23 07:40 36.4 C L 70 18 116/62 92 High Flow Nasal Cannula 5 Laboratory Results CBC, BMP, BNP, magnesium reviewed PG Care Time/CCT Total # of Minutes Spent Total Time Spent with Patient: Total time spent is greater than 50% in coordination of care (as documented) at patient's floor/unit and/or counseling patient: Coding Level of Care Code 28247 SUB INP/OBS CARE 2/35MIN Diagnoses Acute metabolic encephalopathy G93.41 UTI (urinary tract infection) N39.0 Chronic combined systolic and diastolic CHF (congestive heart failure) I50.42 CKD (chronic kidney disease) N18.9 Hypoxia R09.02 Fletcher-prosthetic fracture around prosthetic hip M97.8XXD; Z96.649 Encounter type: subsequent encounter Ischemic cardiomyopathy I25.5 Elevated troponin R77.8 COPD (chronic obstructive pulmonary disease) J44.9 COPD type: unspecified COPD Paroxysmal atrial flutter I48.92 Coronary artery disease I25.10 Associated angina: without angina Coronary Disease-Associated Artery/Lesion type: [place] artery [place] vs. transplanted heart: [place] heart History of pulmonary embolism Z86.711 Hypertension I10 Hypertension type: essential hypertension PAD (peripheral artery disease) I73.9 Constipation K59.00 Elevated alkaline phosphatase level R74.8 Wound of lower extremity S81.809A Abnormal TSH R79.89 (6) Fletcher-prosthetic fracture around prosthetic hip Encounter type: subsequent encounter Qualified Code(s): M97.8XXD - Periprosthetic fracture around other internal prosthetic joint, subsequent encounter; Z96.649 - Presence of unspecified artificial hip joint (9) COPD (chronic obstructive pulmonary disease) COPD type: unspecified COPD Qualified Code(s): J44.9 - Chronic obstructive pulmonary disease, unspecified (11) Coronary artery disease Associated angina: without angina Coronary Disease-Associated Artery/Lesion type: [place] artery [place] vs. transplanted heart: [place] heart Qualified Code(s): I25.10 - Atherosclerotic heart disease of [place] coronary artery without angina pectoris (13) Hypertension Hypertension type: essential hypertension Qualified Code(s): I10 - Essential (primary) hypertension
[2023-03-22] MEDS: DAPTOmycin 500 MG in SYRINGE 0 ML IV SCH (14:30)
[2023-03-22] MEDS ORDERED: FUROSEMIDE 40 MG/4 ML VIAL IV ONE (15:00)
[2023-03-22] MEDS: ALBUT/IPRATROP 3MG/0.5MG NEB 3 ML VIAL INH SCH ×2 (15:02→19:29)
--- NOTE | 2023-03-22 16:28 | XRay Report ---
XR chest 1V portable CLINICAL HISTORY: hypoxia COMPARISON STUDY: Chest radiograph March 22, 2023 at 6:39 AM. FINDINGS: Pacer/AICD is in place. There is no pneumothorax or pleural effusion. Cardiomegaly is again noted. Interstitial thickening and multifocal bilateral airspace opacities have slightly progressed. IMPRESSION: Multifocal bilateral airspace opacities and interstitial thickening which have mildly pr ogressed. The findings may reflect pulmonary edema or multifocal pneumonia. ACT 112: Negative or not required by law. Electronically signed by: Prashanth Osorio M.D. 03/22/2023 4:27 PM
[2023-03-22] MEDS: MELATONIN 3 MG TAB PO SCH (21:59)
[2023-03-22] MEDS: METOPROLOL SUCC 25MG EXT REL TAB PO SCH (21:59)
[2023-03-22] MEDS: cefTRIAXone SODIUM 2,000 MG in DEXTROSE 5% 50 ML IV SCH (22:00)
[2023-03-22] MEDS ORDERED: CEFEPIME 2,000 MG in SYRINGE 0 ML IV SCH (23:00)
[2023-03-23] MEDS: DOXYCYCLINE HYCLATE 100 MG in DEXTROSE 5% 100 ML IV SCH ×2 (00:15→12:59)
[2023-03-23] MEDS: NYSTATIN SUSP 500,000 U/5 ML UDC PO SCH ×4 (00:16→17:34)
[2023-03-23] MEDS: LEVOTHYROXINE SODIUM 25 MCG TABLET PO SCH (06:01)
[2023-03-23] MEDS: ALBUT/IPRATROP 3MG/0.5MG NEB 3 ML VIAL INH SCH ×3 (07:42→19:42)
[2023-03-23] MEDS: AMIODARONE 200 MG TAB PO SCH (08:01)
[2023-03-23] MEDS: APIXABAN 2.5 MG TAB PO SCH ×2 (08:01→20:02)
[2023-03-23] MEDS: CHOLECALCIFEROL 1,000 UNITS 25 MCG TAB PO SCH (08:01)
[2023-03-23] MEDS: lisinopril 2.5 MG TAB PO SCH (08:01)
[2023-03-23] MEDS: FUROSEMIDE 40 MG TAB PO SCH (08:01)
[2023-03-23] MEDS: MAGNESIUM OXIDE 400 MG TAB PO SCH (08:01)
[2023-03-23] MEDS: FLUTICASONE/VILANTEROL 100/25MCG 14 PUFFS/INHALER INH SCH (08:02)
[2023-03-23] MEDS: ASPIRIN 81 MG ECTAB PO SCH (08:02)
[2023-03-23] MEDS: DOCUSATE SODIUM/SENNA 50/8.6MG TAB PO SCH (08:02)
[2023-03-23 08:08] LABS: Basophils # (auto) 0.06 K/uL (0.00-0.20); Basophils % (auto) 0.4 %; Eosinophils % (auto) 0.7 %; Hematocrit (blood only) 39.6 % (42.0-52.0); Immature Granulocytes # (auto) 0.09 K/uL (0.01-0.20); Immature Granulocytes % (auto) 0.6 %; Lymphocytes # (auto) 0.58 K/uL (1.20-3.40); Lymphocytes % (auto) 3.8 %; Mean Corpuscular Hemoglobin 31.3 pg (25.0-34.0); Mean Corpuscular Hgb Conc 32.8 g/dL (32.0-36.0); Mean Corpuscular Volume 95.2 fL (80.0-100.0); Mean Platelet Volume 9.8 fL (9.4-12.4); Monocytes # (auto) 1.06 K/uL (0.11-0.59); Monocytes % (auto) 6.9 %; Neutrophils # (auto) 13.38 K/uL (1.40-6.50); Neutrophils % (auto) 87.6 %; Platelet Count 244 K/uL (130-400); RDW Coefficient of Variation 15.3 % (11.5-14.5); RDW Standard Deviation 52.4 fL (36.4-46.3); Red Blood Count 4.16 M/uL (4.70-6.10); White Blood Count 15.27 K/ul (4.8-10.8)
[2023-03-23 08:29] LABS: Albumin Globulin Ratio 0.8 (0.9-2); Albumin Level 2.8 gm/dl (3.4-5.0); BUN Creatinine Ratio 16.9 (10-20); Bilirubin,Total 0.9 mg/dl (0.2-1.0); Calcium 8.6 mg/dl (8.6-10.3); Creatinine Clr Calc Pharmacy 26.6 ml/min; Est GFR (African American) 26.6 ml/min; Est GFR (Non-African American) 22.9 ml/min; Globulin 3.5 gm/dl (2.5-4.0); Magnesium 2.1 mg/dl (1.7-2.4); Total Protein 6.3 gm/dl (6.0-8.3)
--- NOTE | 2023-03-23 11:25 | Hospitalist Progress Note ---
Date of Service March 23, 2023 Assessment & Plan (1) Hypoxia: Plan: With pulmonary edema and pulmonary vascular congestion with possible pneumonia seen on chest x-ray. With delirium likely more from UTI, but does have some cough and wheeze but also with chronic lung disease The amount of supplemental oxygen required has significantly escalated over the last 24 hours-he is now requiring 15 L high flow nasal cannula with pulse ox 88% ABG with hypoxia with PaO2 59, normal pH Repeat chest x-ray continues to significantly worsen and appears consistent with pulmonary edema or ARDS, multifocal pneumonia Biofire negative on 03/19, procalcitonin negative BNP elevated and oxygenation has worsened despite diuretics WBC count continues to elevate up to 15 Remains afebrile Consideration to be made for amiodarone toxicity versus ARDS versus bacterial pneumonia/gram-negative pneumonia -Consult pulmonology appreciated -Consider chest CT -Changed antibiotics to cefepime, doxycycline to cover for atypicals and MRSA despite negative MRSA swab x2 -Continue DUonebs scheduled tid -Continue home COPD inhalers -Start CPAP -Continue diuresis, consult nephrology -Discontinue amiodarone as per discussion with cardiology (2) Acute metabolic encephalopathy: Plan: 82yo male with multiple medical comorbidities presents from [facility] with progressive confusion, auditory and visual hallucinations. Delirium likely secondary to UTI. Workup otherwise with mild elevation of CT Head with no acute issue. Now completely resolved with treatment with IV antibiotics for UTI -Continue treatment for UTI, hypoxia as above -Delirium prevention strategies with frequent orientation, maintenance of sleep/wake cycles when able. Patient would benefit from undisturbed sleep, no PM vital signs if they are stable. Avoidance of potential delirium-inducing agents -Maintain fall precautions -Melatonin qHS as needed insomnia (3) UTI (urinary tract infection): Plan: Nguyễn catheter associated UTI, presented w/ acute encephalopathy (now resolved) Urine culture from [place] with E. coli, Proteus and Enterococcus. Obtained records from [facility]-E. coli pansensitive, Proteus resistant to ampicillin and cefazolin, as well as tetracycline, and Enterococcus resistant to tetracycline Patient with Nguyễn catheter in place since his fall in January, changed twice (most recently 03/16) Nguyễn remaining in place given limited mobility which is now being advanced per orthopedics, able to bear weight. Consider voiding trial if able to make improvement to prevent repeated infections. Otherwise will need continued f/u and urology/voiding trial at discharge WBC count continues to go up most likely secondary to pneumonia, but remains afebrile, repeat UA no infection -Was on ceftriaxone (coverage for Ecoli/Proteus) + Dapto for coverage for Enteroccocus. MRSA nasal NEGATIVE, however changing to cefepime for pneumonia as above -Last day of therapy will be end of 03/23 for the UTI -Blood cultures -- NGTD -follow CBC, BMP (4) Chronic combined systolic and diastolic CHF (congestive heart failure): Plan: Acute on chronic combined systolic and diastolic CHF Most recent EF 30-35% with wall motion abnormalities, also with right heart f ailure, moderate-severe MR, and mild AI in 11/2022 With lower extremity edema here that he states is his chronic amount, wheezing and crackles on examination and chest x-ray consistent with pulmonary edema Has been receiving some intermittent IV lasix here and remains on 5LNC supplementall O2, still w/ pulm edema on CXR and on exam -continue lasix 40mg PO daily and give IV lasix 40mg x 1 again this afternoon -continue Toprol XL -Appears lisinopril possible discontinued at assisted but given CHF, resumed 03/19 -Will now hold due to rising creatinine and need for diuresis -Not on entresto/SGLT2/spironolactone due to renal failure per CHF notes -continue daily Weights, I&Os -follow BMP, magnesium and replace lytes as needed (5) CKD (chronic kidney disease): Plan: CKD IV at baseline (Cr 2.75 on admission, improved w/ gentle IVF, however stopped/resumed diuretics as above given resolution on repeat labs) Cr rising again with diuresis follow BMP Consult nephrology appreciated Nguyễn catheter in place (6) Fletcher-prosthetic fracture around prosthetic hip: Plan: Patient admitted to [facility] following a fall resulting in a fletcher-prosthetic fracture of the left hip. Has been following with Orthopedic Surgery - last seen 03/10/23. During that time was complaining of pain with motion. He had X- rays obtained which showed the fracture in good alignment. He was progressed to weight bearing of the LLE as tolerated. PT evaluation for ambulation as tolerated LLE weight bearing with caution Voiding trial to be attempted if improvement w/ ambulation/strength w/ treatment of infection (no significant improvement and does not want removed until able to do such) He is to followup with Ortho in another 6 weeks. (7) Ischemic cardiomyopathy: Plan: AICD in place - done in December by Dr. Mary. meds as above s/p cardioversion as above 03/19 (8) Elevated troponin: Plan: Patient denies chest pain. No acute ischemic changes Serial troponin stable at 42/41 Likely myocardial demand ischemia in the setting of hypoxia and acute illness with underlying CAD (9) COPD (chronic obstructive pulmonary disease): Plan: With hypoxia as above -Continue Breo Ellipta daily -Duoneb change to scheduled tid for ongoing wheezing, has not received a single neb treatment thus far this admission despite hypoxia -Suspect he does likely have underlying LEONIDES --> [facility] for [facility] testing/discussion -continue supplemental O2 to keep POx> 89% (10) Paroxysmal atrial flutter: Plan: V-paced on EKG.had cardioversion during this admission -reduced amiodarone to 200mg daily per Dr Mary because of thyroid dysfunction, but now will discontinue due to possible pulmonary toxicity -Continue Apixaban 2.5mg po BID -Continue metoprolol 25mg po qHS (11) Coronary artery disease: Plan: Remote history of RCA stent With myocardial demand ischemia as noted above -Continue apixaban, metoprolol. -Aspirin added back 03/17 which was not on his home med rec. Noting patient statin intolerant (12) History of pulmonary embolism: Plan: -Continue Eliquis (13) Hypertension: Plan: Blood pressures are controlled Continue home metoprolol,But now hold lisinopril 2.5mg as above, no hypotension, BP stable Lasix resumed as above given CHF and BPs remaining stable w/ additional IV lasix as well Monitor (14) PAD (peripheral artery disease): Plan: With stent in the groin, history of carotid artery stenosis Continue aspirin and is intolerant of statins (15) Constipation: Plan: Was a major issue last admission but seems to be improved Continue senna/docusate, MiraLAX as needed BM reported 03/20 (16) Elevated alkaline phosphatase level: Plan: bony from hip fracture vs liver from amiodarone and/or hepatic congestion from CHF? Total bilirubin mildly elevated and has been for quite some time No abdominal pain or tenderness, no need for abdominal imaging at present Repeat LFTs w/ TB normalized (suspect from hepatic congestion, ALP now upper limits of normal w/ continued diuretics) Reduced amio as above to 200mg daily and now will discontinue (17) Wound of lower extremity: Plan: Secondary to recent fall with sutures under left fifth toe and multiple small wounds on legs Consulted wound care while inpatient Sutures removed 03/19 (18) Abnormal TSH: Plan: TSH continues to trend upward since November, now up to 7.7 with normal free T4 Most likely secondary to amiodarone therapy Consulted cardiology to discuss weaning off amiodarone and potentially starting another antiarrhythmic versus rate control strategy-cardioverted and reduced amiodarone dose to 200mg daily -Started Synthroid 25mcg daily -follow TSH in 6 weeks Plan Disposition-transferred to PCU, prognosis guarded DNR/DNI confirmed again on 03/23 Admission and Anticipated Discharge Date Admission Date: March 17, 2023 Subjective Patient requiring 15 L high flow nasal cannula overnight and struggling to keep oxygenation above 88%. He is not coughing up much sputum. Feels weak and tired. He states that he does not want to go on a ventilator or be resuscitated in the event of cardiac arrest. I discussed his care with his daughter at the bedside. I also discussed his care with pulmonology and cardiology. Physical Exam Constitutional: WD/WN, vitals as above Neck: trachea midline, no thyromegaly Respiratory: normal respiratory effort Auscultation: + crackles (bibasilar) and + wheezes (bilat) Cardiovascular: Rate/Rhythm: regular rate and regular rhythm Vessels: dorsalis pedis pulses present Extremities: + edema (1+ pitting edema legs bilat) Gastrointestinal (Abdomen): normal bowel sounds, soft, nontender, no hepatosplenomegaly Neurologic: moves all extremities and awake; no focal motor deficits Psychiatric: A+Ox3, euthymic affect Results & Data Results & Data Vital Signs (Past 12 Hours) Vital Signs Temp Pulse Pulse Resp BP Pulse Ox O2 Del Method 03/23/23 11:14 69 29 H 99 03/23/23 07:30 High Flow Nasal Cannula 03/23/23 08:15 36.5 C 71 22 118/63 90 Nasal Cannula 03/23/23 07:43 70 20 90 Nasal Cannula 03/23/23 06:42 90 High Flow Nasal Cannula O2 Flow Rate FiO2 03/23/23 11:14 50 03/23/23 07:30 13 03/23/23 08:15 10.0 03/23/23 07:43 10 03/23/23 06:42 13 Laboratory Results CBC, BMP, LFTs, procalcitonin, MRSA swab reviewed PG Care Time/CCT Total # of Minutes Spent Total Time Spent with Patient: Total time spent is greater than 50% in coordination of care (as documented) at patient's floor/unit and/or counseling patient: Coding Level of Care Code 19734 SUB INP/OBS CARE 3/50MIN Diagnoses Hypoxia R09.02 Acute metabolic encephalopathy G93.41 UTI (urinary tract infection) N39.0 Chronic combined systolic and diastolic CHF (congestive heart failure) I50.42 CKD (chronic kidney disease) N18.9 Fletcher-prosthetic fracture around prosthetic hip M97.8XXD; Z96.649 Encounter type: subsequent encounter Ischemic cardiomyopathy I25.5 Elevated troponin R77.8 COPD (chronic obstructive pulmonary disease) J44.9 COPD type: unspecified COPD Paroxysmal atrial flutter I48.92 Coronary artery disease I25.10 Associated angina: without angina Coronary Disease-Associated Artery/Lesion type: [place] artery [place] vs. transplanted heart: [place] heart History of pulmonary embolism Z86.711 Hypertension I10 Hypertension type: essential hypertension PAD (peripheral artery disease) I73.9 Constipation K59.00 Elevated alkaline phosphatase level R74.8 Wound of lower extremity S81.809A Abnormal TSH R79.89 (6) Fletcher-prosthetic fracture around prosthetic hip Encounter type: subsequent encounter Qualified Code(s): M97.8XXD - Periprosthetic fracture around other internal prosthetic joint, subsequent encounter; Z96.649 - Presence of unspecified artificial hip joint (9) COPD (chronic obstructive pulmonary disease) COPD type: unspecified COPD Qualified Code(s): J44.9 - Chronic obstructive pulmonary disease, unspecified (11) Coronary artery disease Associated angina: without angina Coronary Disease-Associated Artery/Lesion type: [place] artery [place] vs. transplanted heart: [place] heart Qualified Code(s): I25.10 - Atherosclerotic heart disease of [place] coronary artery without angina pectoris (13) Hypertension Hypertension type: essential hypertension Qualified Code(s): I10 - Essential (primary) hypertension
[2023-03-23] MEDS: CEFEPIME 1,000 MG in SYRINGE 0 ML IV SCH (13:00)
[2023-03-23] MEDS ORDERED: FUROSEMIDE 40 MG/4 ML VIAL IV ONE (14:10)
--- NOTE | 2023-03-23 16:08 | Pulmonary Consultation ---
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 Acute on Chronic Respiratory Failure -Combined Systolic/Diastolilc HF -COPD Exacerbation -Pneumonia 2. Acute HF -Systolic/Diastollic -diuresis -ECHO -Cardiology following 3. COPD Exacerbation -multifactorial -Acute HF: systolic/Diastolic -pneumonia -requiring BiPAP/High Flow Oxygen -steroids 4. Pneumonia -sputum culture -Cefepime 5. CKD-Stage IV -Nephrology evaluation -avoid nephrotoxic agents 6. Atrial Flutter -Cardiology folloiwng -S/P Cardioversion -Sinus Rythm currently -using apixiban Pulmonary time spent examining and speaking to patient, reviewing all of patient's diagnostic study including his lab work all radiologic studies and discussing his pulmonary management with the pulmonary team, including Ernesto Viera PA-C exclusive of any invasive procedures or family conferences today was 47 minutes. History of Present Illness Reason for Consultation: Hypoxia and Dyspnea Requesting Physician: Brook Aldrich MD Attending Physician: Brook Aldrich MD History of Present Illness 82yr old gentleman with underlying medical hx significant for Ischemic CM, COPD, CKD, DM and Dual Chambered pacemaker who presented from [facility] for confusion and delirium thought to be due to a UTI. He was seen here in [facility] back in January after falling and sustaining an avulsion wound to both arms and a closed periphrosthetic fracture to his left hip. He was seen by the orthopedic service at that time who suggested nonweightbearing status to his left leg for the next 6 weeks. And he was discharged to [facility]. Patient was experiencing auditory and visual hallucinations sustained a fall on Wednesday, March 13 while trying to get out of bed at that time. From his fall he sustained a laceration of the plantar surface of his left fifth toe. His urinalysis at that time after he was seen in the [place] [facility] did suggest presence of a UTI for which she received ceftriaxone and was sent home with Keflex. Unfortunately patient had continued to become progressively confused with his hallucinations and was therefore admitted to [facility] for further evaluation and management.Unfortunately, patient treated for his UTI and his confusion has improved but he's become more hypoxic requiring more oygen now at 10L/min via N/C although alert and oriented this morning. Allergies Allergy/AdvReac Type Severity Reaction Status Date / Time ciprofloxacin Allergy Intermediate Rash Verified 03/16/23 20:12 warfarin Allergy Intermediate hives, rash Verified 03/16/23 20:12 niacin AdvReac Severe LEG Verified 03/16/23 20:12 [From Niaspan WEAKNESS Extended-Release] Hpjhxka-MQM-UxV Reductase AdvReac Severe muscle Verified 03/16/23 20:12 Inhibitor weakness,pain, [Qvctreg-Rkp-Ghp Reductase cramps Inhibitor] umeclidinium AdvReac Unknown "NOT Verified 03/16/23 20:12 [From Anoro Ellipta] ALLERGIC,DOES NOTHING FOR ME" vilanterol AdvReac Unknown "NOT Verified 03/16/23 20:12 [From Anoro Ellipta] ALLERGIC, DOES NOTHING FOR ME" Home Medications Medication Instructions Recorded Confirmed Type acetaminophen 325 mg tablet 650 mg PO Q6 PRN Fever Or Pain 03/16/23 03/16/23 History (Tylenol) amiodarone 200 mg tablet 200 mg PO BID 03/16/23 03/16/23 History ampicillin 500 mg capsule 500 mg PO Q12 03/16/23 03/16/23 History apixaban 2.5 mg tablet (Eliquis) 2.5 mg PO BID 03/16/23 03/16/23 History cholecalciferol (vitamin D3) 50 50 mcg PO DAILY 03/16/23 03/16/23 History mcg (2,000 unit) tablet (Vitamin D3) fluticasone furoate 100 1 inh inhalation DAILY 03/16/23 03/16/23 History mcg-vilanterol 25 mcg/dose inhalation powder (Breo Ellipta) furosemide 20 mg tablet 20 mg PO DAILY 03/16/23 03/16/23 History ipratropium 0.5 mg-albuterol 3 mg 3 ml inhalation Q6H PRN .SOB/COUGH 03/16/23 03/16/23 History (2.5 mg base)/3 mL nebulization soln melatonin 5 mg tablet 5 mg PO HS 03/16/23 03/16/23 History metoprolol succinate 25 mg 25 mg PO HS 03/16/23 03/16/23 History tablet,extended release 24 hr nitroglycerin 0.4 mg sublingual 0.4 mg sublingual DIRECTED PRN 03/16/23 03/16/23 History tablet (Nitrostat) .CHEST PAIN nystatin 100,000 unit/mL oral 5 ml PO Q6 .SORE MOUTH 03/16/23 03/16/23 History suspension potassium chloride 10 mEq 10 meq PO DAILY 03/16/23 03/16/23 History tablet,extended release sennosides 8.6 mg-docusate sodium 1 tab-cap PO DAILY 03/16/23 03/16/23 History 50 mg tablet (Senna-S) Patient History Medical History Abnormal TSH Anemia Anorectal fistula Arthritis Asthma Atrial fibrillation Carotid artery stenosis >70% NEHAL, <50% LICA Chronic kidney disease, stage 3 (moderate) COPD (chronic obstructive pulmonary disease) Coronary artery disease Remote h/o stent to RCA. Stent patent on 2005 cath per cardio. Degenerative arthritis of right knee Diabetes mellitus, type 2 Diastolic congestive heart failure Eczema Erectile dysfunction H/O difficult intubation Glidescope 2011 lap tracie History of anesthesia reaction SOMETIMES COMES OUT SWINGING History of TX (myocardial infarction) TOTAL OF 3 History of pulmonary embolism (02/2011) HX BILATERAL Hyperlipidemia Hypertension Ischemic cardiomyopathy Mitral regurgitation On anticoagulant therapy PAD (peripheral artery disease) (03/14/14) L common iliac angioplasty/stent, stenting of totally occluded R SFA, angioplasty of occluded RCF 2006. Angioplasty to R SFA in-stent stenosis 2013. PVCs (premature ventricular contractions) Restrictive lung disease Right lower lobe pulmonary nodule Noted on CT 04/03, 12mo f/u recommended. 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 Subclavian artery stenosis Vitamin D insufficiency Surgical History H/O inguinal hernia repair H/O total hip arthroplasty R/L H/O total knee replacement (09/2017) RIGHT History of cardiac cath MULTIPLE - TOTAL OF 16 STENTS - UNSURE WHEN MOST RECENT History of CEA (carotid endarterectomy) (06/01/18) R CEA w/ patch angioplasty History of hydrocelectomy History of incision and drainage (10/23/17) ischiorectal abscess Hx laparoscopic cholecystectomy S/P arterial stent (08/2006) R SFA CORE RESCUER and stenting S/P cataract surgery R/L S/P coronary artery stent placement (1995) RCA Status post angioplasty (2013) to R SFA in stent stenosis Status post surgery (12/15/17) placement of seton drain in transsphinteric fistula - 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 AND ALWAYS IS DRAINING Family History Mother Thyroid disease Family history of diabetes mellitus Father Coronary heart disease Emphysema of lung Family history of diabetes mellitus Uncle Family history of colon cancer Denies family history of Colon cancer Ovarian cancer Prostate cancer Myocardial infarction Breast cancer Lung cancer Colorectal cancer Social History Smoking Status: Former smoker Tobacco Type: Cigarettes Cigarettes Per Day: Smoked Pipe Tobacco.; Second Hand Exposure: No; Do You Dip or Chew Tobacco: No; Hx Alcohol Use: No Hx Substance Use: No Preferred Language: Norwegian Communication Ability: Effective Visual Impairment: No Limitations Hearing Ability: Use of Hearing Aid Wool Presser Required: No Beliefs That Will Affect Care: None marital status: / Current Living Situation: Alone Current Living Situation Comment: lives alone in apartment current occupational status: retired How many Children do You have: 2 Feels Safe at Home: Yes Childhood Exposure to Second-Hand Smoke: No Diet Comment: regular caffeine: Yes (2-3 cups coffee) during the past year weight has: increased > 10 lbs Dental Care, Regularly: Yes Physical Activity Frequency: 1-2 Times per Week Seatbelt Use: always Sunscreen Use: Yes Assistive Devices: Cane, Hospital Bed and Walker Review of Systems Review of Systems: All systems reviewed & are unremarkable except as noted in HPI & below Physical Exam Constitutional: Awake, reponsive, able to hold a conversation with the Pulmonary team without being in distress. Requiring high dose oxygen. Eyes: PERRL, conjunctivae normal, anicteric sclerae ENMT: external ear and nose normal, oropharynx normal Neck: trachea midline, no thyromegaly Respiratory: Diminished BS to bases with some scattered rhonchi noted, no cough or wheezing. CXR reveals increased bilateral upper lobes opacifications. Cardiovascular: S1 & S2 within normal limits with bradycardia currently Gastrointestinal (Abdomen): normal bowel sounds, soft, nontender, no hepatosplenomegaly Musculoskeletal: Some bone deformities noted to hands/knees and ankles consistent with arthritis Skin: no rashes, warm and dry Neurologic: patellar DTR's 2+ bilat, sensation intact and PERRL, EOMI, accommodation nl, no face palsy, no dysarthria Psychiatric: A+Ox3, euthymic affect Results & Data Results & Data Vital Signs (Past 12 Hours) Vital Signs Temp Pulse Pulse Resp BP Pulse Ox O2 Del Method 03/23/23 13:19 70 22 95 03/23/23 13:16 70 21 95 CPAP 03/23/23 11:00 High Flow Nasal Cannula 03/23/23 12:42 70 21 121/67 94 BiPAP 03/23/23 11:00 36.7 C 67 16 94/54 L 90 High Flow Nasal Cannula 03/23/23 11:14 69 29 H 99 03/23/23 07:30 High Flow Nasal Cannula 03/23/23 08:15 36.5 C 71 22 118/63 90 Nasal Cannula 03/23/23 07:43 70 20 90 Nasal Cannula 03/23/23 06:42 90 High Flow Nasal Cannula O2 Flow Rate FiO2 03/23/23 13:19 50 03/23/23 13:16 50 03/23/23 11:00 15 03/23/23 12:42 50 03/23/23 11:00 15 03/23/23 11:14 50 03/23/23 07:30 13 03/23/23 08:15 10.0 03/23/23 07:43 10 03/23/23 06:42 13 Chemistry Results CMP Results: Na 138 mmol/L (136-145) 03/23/23 K 4.0 mmol/L (3.5-5.1) 03/23/23 Cl 101 mmol/L (98-107) 03/23/23 CO2 27 mmol/L (21-32) 03/23/23 Anion Gap 10 (3-11) 03/23/23 BUN 42 mg/dl (6-23) H 03/23/23 Creatinine 2.48 mg/dl (0.6-1.4) H 03/23/23 Estimated GFR ( Amer) 26.6 ml/min 03/23/23 Estimated GFR (Non-Af Amer) 22.9 ml/min 03/23/23 BUN/Creatinine Ratio 16.9 (10-20) 03/23/23 Glu 98 mg/dl (70-99(Fasting)) 03/23/23 Ca 8.6 mg/dl (8.6-10.3) 03/23/23 Phosphorus Level 3.5 mg/dl (2.5-4.9) 02/12/23 Total Bilirubin 0.9 mg/dl (0.2-1.0) 03/23/23 Direct Bilirubin 0.2 mg/dl (0-0.2) 03/19/23 AST 20 U/L (13-39) 03/23/23 ALT 9 U/L (7-52) 03/23/23 Alkaline Phosphatase 100 U/L (34-104) 03/23/23 TP 6.3 gm/dl (6.0-8.3) 03/23/23 Albumin 2.8 gm/dl (3.4-5.0) L 03/23/23 Globulin 3.5 gm/dl (2.5-4.0) 03/23/23 Albumin/Globulin Ratio 0.8 (0.9-2) L 03/23/23 COVID-19 Results Results COVID-19 Adm Lab Results: RBC 4.16 M/uL (4.70-6.10) L 03/23/23 WBC 15.27 K/ul (4.8-10.8) H 03/23/23 Hgb 13.0 g/dl (14.0-18.0) L 03/23/23 Hct 39.6 % (42.0-52.0) L 03/23/23 Plt Count 244 K/uL (130-400) 03/23/23 Neutrophils (%) (Auto) 87.6 % 03/23/23 Lymphocytes (%) (Auto) 3.8 % 03/23/23 Monocytes # (Auto) 1.06 K/uL (0.11-0.59) H 03/23/23 Eosinophils # (Auto) 0.10 K/uL (0.00-0.50) 03/23/23 Immature Granulocyte % (Auto) 0.6 % 03/23/23 Neutrophils # (Auto) 13.38 K/uL (1.40-6.50) H 03/23/23 Lymphocytes # (Auto) 0.58 K/uL (1.20-3.40) L 03/23/23 Monocytes # (Auto) 1.06 K/uL (0.11-0.59) H 03/23/23 Eosinophils # (Auto) 0.10 K/uL (0.00-0.50) 03/23/23 Basophils # (Auto) 0.06 K/uL (0.00-0.20) 03/23/23 Immature Granulocyte # (Auto) 0.09 K/uL (0.01-0.20) 3 Na 138 mmol/L (136-145) 03/23/23 K 4.0 mmol/L (3.5-5.1) 03/23/23 Cl 101 mmol/L (98-107) 03/23/23 CO2 27 mmol/L (21-32) 03/23/23 Anion Gap 10 (3-11) 03/23/23 BUN 42 mg/dl (6-23) H 03/23/23 Creatinine 2.48 mg/dl (0.6-1.4) H 03/23/23 BUN/Creatinine Ratio 16.9 (10-20) 03/23/23 Glucose Level 98 mg/dl (70-99(Fasting)) 03/23/23 Ca 8.6 mg/dl (8.6-10.3) 03/23/23 Total Bilirubin 0.9 mg/dl (0.2-1.0) 03/23/23 Direct Bilirubin 0.2 mg/dl (0-0.2) 03/19/23 AST/SGOT 20 U/L (13-39) 03/23/23 ALT/SGPT 9 U/L (7-52) 03/23/23 Alkaline Phosphatase 100 U/L (34-104) 03/23/23 Total Protein 6.3 gm/dl (6.0-8.3) 03/23/23 Albumin 2.8 gm/dl (3.4-5.0) L 03/23/23 Globulin 3.5 gm/dl (2.5-4.0) 03/23/23 Albumin/Globulin Ratio 0.8 (0.9-2) L 03/23/23 Total CK 32 U/L (30-223) 03/18/23 Procalcitonin 0.34 ng/ml (0-0.5) 03/23/23 INR 1.2 (0.9-1.1) H 03/16/23 Adenovirus (PCR) Not Detected (NotDetected) 03/19/23 B. parapertussis DNA (PCR) Not Detected (NotDetected) 02/24 12/15 B. pertussis DNA (PCR) Not Detected (NotDetected) 03/19/23 C. pneumoniae DNA (PCR) Not Detected (NotDetected) 3 Coronavirus Type OC43 (PCR) Not Detected (NotDetected) Coronavirus Type HKU1 (PCR) Not Detected (NotDetected) Coronavirus Type 229E (PCR) Not Detected (NotDetected) COVID-19 PCR Not Detected (NotDetected) 03/19/23 Coronavirus Type NL63 (PCR) Not Detected (NotDetected) Human Metapneumovirus (PCR) Not Detected (NotDetected) Influenza Virus Type A (PCR) Not Detected (NotDetected) Influenza Virus Type B (PCR) Not Detected (NotDetected) M. pneumoniae (PCR) Not Detected (NotDetected) 03/19/23 Parainfluenza Type 1 (PCR) Not Detected (NotDetected) 02/24 12/15 Parainfluenza Type 2 (PCR) Not Detected (NotDetected) 02/24 12/15 Parainfluenza Type 3 (PCR) Not Detected (NotDetected) 02/24 12/15 Parainfluenza Type 4 (PCR) Not Detected (NotDetected) 02/24 12/15 RSV (PCR) Not Detected (NotDetected) 03/19/23 Enterovirus/Rhinovirus (PCR) Not Detected (NotDetected) ABG pH 7.44 (7.35-7.45) 03/22/23 ABG pCO2 41 mmHg (35-46) 03/22/23 ABG pO2 59 mmHg (80-95) L 03/22/23 ABG HCO3 28 mmol/L (19-24) H 03/22/23 ABG O2 Saturation 90.7 % (90-95) 03/22/23 ABG Base Excess 3.3 mEq/L (-9-1.8) H 03/22/23 Chest X-Ray 03/22/23 PG Care Time/CCT Total # of Minutes Spent Total Time Spent with Patient: Total time spent is greater than 50% in coordination of care (as documented) at patient's floor/unit and/or counseling patient: Coding Level of Care Code 83853 IN/OBS CONSULT LVL 3,45M Diagnoses Hypothyroidism E03.9 ICD (implantable cardioverter-defibrillator), biventricular, in situ Z95.810 Wound of lower extremity S81.809A Acute UTI N39.0 Delirium R41.0 Anabel-prosthetic fracture around prosthetic hip M97.8XXD; Z96.649 Encounter type: subsequent encounter 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
--- NOTE | 2023-03-23 18:02 | Nephrology Consultation ---
Date of Consultation March 23, 2023 Assessment & Plan (1) KENNEY (acute kidney injury): Clinical history consistent with cardiorenal syndrome. Creatinine relatively stable at 2.0-2.5 mg/dL. Electrolytes normal. Kidney dysfunction appears to have progressed following cardioversion and initiation of lisinopril. ACEi has now been held. Non-oliguric but urine output reduced. He did not have a significant response to furosemide. There a component of prerenal KENNEY from intravascular volume depletion and heart failure. I would avoid aggressive diuresis at this time. Ultimately, I would like to follow up with cardiology regarding management moving forward. The potential role of SIGNAL INSPECTOR was discussed with the patient and his family. Unfortunately, Favian has frailty and medical comorbidities including advanced heart disease that complicate his ability to tolerate and benefit from dialysis. For now, focus on medical management will be provided. Medications are currently appropriate for kidney function. Renal profile and CK will be checked in the AM. Document strict I/O's. (2) CKD (chronic kidney disease): CKD IV. CHRISTIANO akhtar. Followed by Dr. Escobar as an outpatient. 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 (3) Ischemic cardiomyopathy: Favian has not been able to tolerate RAAS blockade due to kidney dysfunction. He is not an candidate for SGLT2i at this time due to progressive CKD. (4) Acute on chronic HFrEF (heart failure with reduced ejection fraction): Goal is to encourage slightly negative fluid balance. (5) ICD (implantable cardioverter-defibrillator), biventricular, in situ: (6) Chronic indwelling Nguyễn catheter: Nguyễn to gravity. History of Present Illness Reason for Consultation: volume overload,CKD Requesting Physician: Brook Aldrich MD Attending Physician: Brook Aldrich MD History of Present Illness Mr. Favian Multani is an 82 year-old male with complex medical history including ischemic cardiomyopathy, COPD, and advanced chronic kidney disease. Favian has followed in the outpatient nephrology clinic with Dr. Escobar. The patient has extensive vascular disease and CKD has been attributed to microvascular disease and associated glomerulosclerosis. Baseline creatinine is ~2.0 mg/dL. Favian was admitted to [facility] on March 16 with mental status changes. Evaluation notable for UTI, hypoxia with CHF and possible pneumonia. He is a resident at [facility] following a fall resulting in periprosthetic hip fracture in January. He had been living independently previously. The patient was seen and evaluated with his daughter, grandchildren, and great grandchildren at the beside this evening. He was resting comfortably on BIPAP. Favian had no specific concerns at the time of my assessment. Nguyễn is draining clear yellow urine. Urine output concerningly reduced. Net UOP today 300 ml. Furosemide 40 mg PO provided this morning and an additional 40 mg IV was provided this afternoon. Unfortunately, hospitalization has been complicated by atrial flutter, hypoxic respiratory failure, and progressive kidney dysfunction. Cardioversion was completed on March 19. Favian is being treated with daptomycin and cefepime for possible pneumonia. Pulmonary consultation recently completed. He is afebrile. CXR demonstrating multifocal airspace opacities with pulmonary vascular congestion. Favian is s/p dual chamber pacemaker placement. Medical history also notable for hypothyroidism (possibly associated with amiodarone), and chronic urinary retention. Allergies Allergy/AdvReac Type Severity Reaction Status Date / Time ciprofloxacin Allergy Intermediate Rash Verified 03/16/23 20:12 warfarin Allergy Intermediate hives, rash Verified 03/16/23 20:12 niacin AdvReac Severe LEG Verified 03/16/23 20:12 [From Niaspan WEAKNESS Extended-Release] Skkkkrz-DKD-DnO Reductase AdvReac Severe muscle Verified 03/16/23 20:12 Inhibitor weakness,pain, [Pliamdn-Mra-Orv Reductase cramps Inhibitor] umeclidinium AdvReac Unknown "NOT Verified 03/16/23 20:12 [From Anoro Ellipta] ALLERGIC,DOES NOTHING FOR ME" vilanterol AdvReac Unknown "NOT Verified 03/16/23 20:12 [From Anoro Ellipta] ALLERGIC, DOES NOTHING FOR ME" Home Medications Medication Instructions Recorded Confirmed Type acetaminophen 325 mg tablet 650 mg PO Q6 PRN Fever Or Pain 03/16/23 03/16/23 History (Tylenol) amiodarone 200 mg tablet 200 mg PO BID 03/16/23 03/16/23 History ampicillin 500 mg capsule 500 mg PO Q12 03/16/23 03/16/23 History apixaban 2.5 mg tablet (Eliquis) 2.5 mg PO BID 03/16/23 03/16/23 History cholecalciferol (vitamin D3) 50 50 mcg PO DAILY 03/16/23 03/16/23 History mcg (2,000 unit) tablet (Vitamin D3) fluticasone furoate 100 1 inh inhalation DAILY 03/16/23 03/16/23 History mcg-vilanterol 25 mcg/dose inhalation powder (Breo Ellipta) furosemide 20 mg tablet 20 mg PO DAILY 03/16/23 03/16/23 History ipratropium 0.5 mg-albuterol 3 mg 3 ml inhalation Q6H PRN .SOB/COUGH 03/16/23 03/16/23 History (2.5 mg base)/3 mL nebulization soln melatonin 5 mg tablet 5 mg PO HS 03/16/23 03/16/23 History metoprolol succinate 25 mg 25 mg PO HS 03/16/23 03/16/23 History tablet,extended release 24 hr nitroglycerin 0.4 mg sublingual 0.4 mg sublingual DIRECTED PRN 03/16/23 03/16/23 History tablet (Nitrostat) .CHEST PAIN nystatin 100,000 unit/mL oral 5 ml PO Q6 .SORE MOUTH 03/16/23 03/16/23 History suspension potassium chloride 10 mEq 10 meq PO DAILY 03/16/23 03/16/23 History tablet,extended release sennosides 8.6 mg-docusate sodium 1 tab-cap PO DAILY 03/16/23 03/16/23 History 50 mg tablet (Senna-S) Patient History Medical History Abnormal TSH Anemia Anorectal fistula Arthritis Asthma Atrial fibrillation Carotid artery stenosis >70% NEHAL, <50% LICA Chronic kidney disease, stage 3 (moderate) COPD (chronic obstructive pulmonary disease) Coronary artery disease Remote h/o stent to RCA. Stent patent on 2005 cath per cardio. Degenerative arthritis of right knee Diabetes mellitus, type 2 Diastolic congestive heart failure Eczema Erectile dysfunction H/O difficult intubation Glidescope 2011 lap tracie History of anesthesia reaction SOMETIMES COMES OUT SWINGING History of IN (myocardial infarction) TOTAL OF 3 History of pulmonary embolism (02/2011) HX BILATERAL Hyperlipidemia Hypertension Ischemic cardiomyopathy Mitral regurgitation On anticoagulant therapy PAD (peripheral artery disease) (03/14/14) L common iliac angioplasty/stent, stenting of totally occluded R SFA, angioplasty of occluded RCF 2006. Angioplasty to R SFA in-stent stenosis 2013. PVCs (premature ventricular contractions) Restrictive lung disease Right lower lobe pulmonary nodule Noted on CT 9/9, 12mo f/u recommended. 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 S/P cataract surgery R/L S/P coronary artery stent placement (1995) RCA Status post angioplasty (2013) to R SFA in stent stenosis Status post surgery (12/15/17) placement of seton drain in transsphinteric fistula - 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 AND ALWAYS IS DRAINING Family History Mother Thyroid disease Family history of diabetes mellitus Father Coronary heart disease Emphysema of lung Family history of diabetes mellitus Uncle Family history of colon cancer Denies family history of Colon cancer Ovarian cancer Prostate cancer Myocardial infarction Breast cancer Lung cancer Colorectal cancer Social History Smoking Status: Former smoker Tobacco Type: Cigarettes Cigarettes Per Day: Smoked Pipe Tobacco.; Second Hand Exposure: No; Do You Dip or Chew Tobacco: No; Hx Alcohol Use: No Hx Substance Use: No Preferred Language: Malian Communication Ability: Effective Visual Impairment: No Limitations Hearing Ability: Use of Hearing Aid Outside Salesperson Required: No Beliefs That Will Affect Care: None marital status: / Current Living Situation: Alone Current Living Situation Comment: lives alone in apartment current occupational status: retired How many Children do You have: 2 Feels Safe at Home: Yes Childhood Exposure to Second-Hand Smoke: No Diet Comment: regular caffeine: Yes (2-3 cups coffee) during the past year weight has: increased > 10 lbs Dental Care, Regularly: Yes Physical Activity Frequency: 1-2 Times per Week Seatbelt Use: always Sunscreen Use: Yes Assistive Devices: Cane, Hospital Bed and Walker Review of Systems Review of Systems: All systems reviewed & are unremarkable except as noted in HPI & below Physical Exam Constitutional: well developed and + frail appearing; no acute distress Eyes: no scleral abnormality and no corneal abnormality ENMT: BIPAP Neck: normal visual inspection and trachea midline Respiratory: + tachypneic Auscultation: + rhonchi Cardiovascular: Rate/Rhythm: + bradycardic Heart Sounds: normal S1, normal S2 and + murmur Extremities: + pedal edema and + varicosities Musculoskeletal: Extremities: no cyanosis and no clubbing Skin: + turgor decreased and + ecchymosis; no jaundice Neurologic: Motor/Sensory: no tremor and no asterixis Psychiatric: Orientation: alert and oriented x 3 Results & Data Vital Signs (Past 12 Hours) Vital Signs Temp Pulse Pulse Resp BP Pulse Ox O2 Del Method 03/23/23 15:56 36.9 C 55 L 21 103/59 L 93 BiPAP 03/23/23 15:49 70 22 94 03/23/23 15:23 70 03/23/23 13:19 70 22 95 03/23/23 13:16 70 21 95 CPAP 03/23/23 11:00 High Flow Nasal Cannula 03/23/23 12:42 70 21 121/67 94 BiPAP 03/23/23 11:00 36.7 C 67 16 94/54 L 90 High Flow Nasal Cannula 03/23/23 11:14 69 29 H 99 03/23/23 07:30 High Flow Nasal Cannula 03/23/23 08:15 36.5 C 71 22 118/63 90 Nasal Cannula 03/23/23 07:43 70 20 90 Nasal Cannula 03/23/23 06:42 90 High Flow Nasal Cannula O2 Flow Rate FiO2 03/23/23 15:56 50 03/23/23 15:49 03/23/23 15:23 03/23/23 13:19 50 03/23/23 13:16 50 03/23/23 11:00 15 03/23/23 12:42 50 03/23/23 11:00 15 03/23/23 11:14 50 03/23/23 07:30 13 03/23/23 08:15 10.0 03/23/23 07:43 10 03/23/23 06:42 13 Laboratory Results Laboratory Results - last 24 hr 03/23/23 03/23/23 03/23/23 06:15 07:11 07:11 WBC 15.27 H RBC 4.16 L Hgb 13.0 L Hct 39.6 L MCV 95.2 MCH 31.3 MCHC 32.8 RDW Std Deviation 52.4 H RDW Coeff of Anton 15.3 H Plt Count 244 MPV 9.8 Immature Gran % (Auto) 0.6 Neut % (Auto) 87.6 Lymph % (Auto) 3.8 Story % (Auto) 6.9 Eos % (Auto) 0.7 Baso % (Auto) 0.4 Neut # (Auto) 13.38 H Lymph # (Auto) 0.58 L Story # (Auto) 1.06 H Eos # (Auto) 0.10 Baso # (Auto) 0.06 Immature Gran # (Auto) 0.09 Sodium 138 Potassium 4.0 Chloride 101 Carbon Dioxide 27 Anion Gap 10 BUN 42 H Creatinine 2.48 H D Est Cr Clr Drug Dosing 26.6 Est GFR ( Amer) 26.6 Est GFR (Non-Af Amer) 22.9 BUN/Creatinine Ratio 16.9 Glucose 98 Calcium 8.6 Magnesium 2.1 Total Bilirubin 0.9 AST 20 ALT 9 Alkaline Phosphatase 100 Total Protein 6.3 Albumin 2.8 L Globulin 3.5 Albumin/Globulin Ratio 0.8 L Procalcitonin Nasal Screen MRSA (PCR) Negative 03/23/23 07:11 WBC RBC Hgb Hct MCV MCH MCHC RDW Std Deviation RDW Coeff of Anton Plt Count MPV Immature Gran % (Auto) Neut % (Auto) Lymph % (Auto) Story % (Auto) Eos % (Auto) Baso % (Auto) Neut # (Auto) Lymph # (Auto) Story # (Auto) Eos # (Auto) Baso # (Auto) Immature Gran # (Auto) Sodium Potassium Chloride Carbon Dioxide Anion Gap BUN Creatinine Est Cr Clr Drug Dosing Est GFR ( Amer) Est GFR (Non-Af Amer) BUN/Creatinine Ratio Glucose Calcium Magnesium Total Bilirubin AST ALT Alkaline Phosphatase Total Protein Albumin Globulin Albumin/Globulin Ratio Procalcitonin 0.34 Nasal Screen MRSA (PCR) Diagnostic Findings XR chest 1V portable FINDINGS: Pacer/AICD is in place. There is no pneumothorax or pleural effusion. Cardiomegaly is again noted. Interstitial thickening and multifocal bilateral airspace opacities have slightly progressed. IMPRESSION: Multifocal bilateral airspace opacities and interstitial thickening which have mildly progressed. The findings may reflect pulmonary edema or multifocal pneumonia. PG Care Time/CCT Total # of Minutes Spent Total Time Spent with Patient: Total time spent is greater than 50% in coordination of care (as documented) at patient's floor/unit and/or counseling patient: Coding Level of Care Code 48940 IN/OBS CONSULT LVL 4,60M Diagnoses KENNEY (acute kidney injury) N17.9 CKD (chronic kidney disease) N18.9 Ischemic cardiomyopathy I25.5 Acute on chronic HFrEF (heart failure with reduced ejection fraction) I50.23 ICD (implantable cardioverter-defibrillator), biventricular, in situ Z95.810 Chronic indwelling Nguyễn catheter Z97.8
[2023-03-23] MEDS: METOPROLOL SUCC 25MG EXT REL TAB PO SCH (20:02)
[2023-03-23] MEDS: MELATONIN 3 MG TAB PO SCH (20:02)
[2023-03-24] MEDS: NYSTATIN SUSP 500,000 U/5 ML UDC PO SCH ×2 (00:52→05:53)
[2023-03-24] MEDS: DOXYCYCLINE HYCLATE 100 MG in DEXTROSE 5% 100 ML IV SCH ×2 (00:52→12:01)
[2023-03-24] MEDS: CEFEPIME 1,000 MG in SYRINGE 0 ML IV SCH ×2 (00:53→12:01)
[2023-03-24] MEDS: LEVOTHYROXINE SODIUM 25 MCG TABLET PO SCH (05:53)
[2023-03-24] MEDS: ALBUT/IPRATROP 3MG/0.5MG NEB 3 ML VIAL INH SCH ×3 (06:56→19:07)
--- NOTE | 2023-03-24 08:16 | CT Scan Report ---
CT chest diagnostic wo con CLINICAL HISTORY: hypoxia,pneumonia TECHNIQUE: Multidetector row helical CT of the chest was performed. Coronal and sagittal reformations were obtained. Automated dose lowering techniques and/or adjustment according to patient size were u tilized for this exam. CT DOSE: 920.10 mGy.cm Comparison: Comparison is made to CT chest 04/03/2018 FINDINGS: Lungs and pleura: Multifocal airspace opacities are seen involving the bilateral lungs. Trace bilater al pleural effusions are seen. Incidental note is made of bilateral small calcified pleural plaques. Heart and pericardium: Cardiomegaly is seen with biatrial enlargement. Vessels: The pulmonary trunk is enlarged measuring 34 mm. Severe atherosclerosis is seen. Mediastinum and rosalee: Multiple prominent mediastinal lymph nodes measure up to 12 mm in Chest wall and lower neck: Unremarkable. Abdomen: Unremarkable. Bones: Degenerative changes in the thoracic spine. IMPRESSION: 1. Findings are compatible with multifocal pneumonia with reactive lymphadenopathy. 2. Pulmonary hypertension. 3. Trace bilateral pleural effusions. Pleural plaques are noted. ACT 112: Negative or not required by law. Electronically signed by: Seth Romano M.D. 03/24/2023 8:15 AM
[2023-03-24] MEDS: APIXABAN 2.5 MG TAB PO SCH ×2 (09:27→20:05)
[2023-03-24] MEDS: MAGNESIUM OXIDE 400 MG TAB PO SCH (09:27)
[2023-03-24] MEDS: ASPIRIN 81 MG ECTAB PO SCH (09:27)
[2023-03-24] MEDS: CHOLECALCIFEROL 1,000 UNITS 25 MCG TAB PO SCH (09:28)
[2023-03-24] MEDS: FUROSEMIDE 40 MG TAB PO SCH (09:28)
[2023-03-24] MEDS: FLUTICASONE/VILANTEROL 100/25MCG 14 PUFFS/INHALER INH SCH (09:28)
[2023-03-24] MEDS: DOCUSATE SODIUM/SENNA 50/8.6MG TAB PO SCH (09:30)
[2023-03-24 09:43] LABS: Basophils # (auto) 0.05 K/uL (0.00-0.20); Basophils % (auto) 0.4 %; Eosinophils # (auto) 0.17 K/uL (0.00-0.50); Eosinophils % (auto) 1.3 %; Hematocrit (blood only) 37.7 % (42.0-52.0); Hemoglobin 12.4 g/dl (14.0-18.0); Immature Granulocytes # (auto) 0.08 K/uL (0.01-0.20); Immature Granulocytes % (auto) 0.6 %; Lymphocytes # (auto) 0.49 K/uL (1.20-3.40); Lymphocytes % (auto) 3.7 %; Mean Corpuscular Hemoglobin 31.1 pg (25.0-34.0); Mean Corpuscular Hgb Conc 32.9 g/dL (32.0-36.0); Mean Corpuscular Volume 94.5 fL (80.0-100.0); Monocytes # (auto) 0.68 K/uL (0.11-0.59); Monocytes % (auto) 5.1 %; Neutrophils % (auto) 88.9 %; Platelet Count 224 K/uL (130-400); RDW Coefficient of Variation 15.3 % (11.5-14.5); RDW Standard Deviation 53.6 fL (36.4-46.3); Red Blood Count 3.99 M/uL (4.70-6.10); White Blood Count 13.37 K/ul (4.8-10.8)
[2023-03-24 10:17] LABS: Albumin Level 2.7 gm/dl (3.4-5.0); BUN Creatinine Ratio 15.7 (10-20); Calcium 8.5 mg/dl (8.6-10.3); Creatinine Clr Calc Pharmacy 19.2 ml/min; Est GFR (Non-African American) 15.5 ml/min; Phosphorus 4.3 mg/dl (2.5-4.9); Potassium 4.3 mmol/L (3.5-5.1)
--- NOTE | 2023-03-24 10:22 | Nephrology Progress Note ---
Date of Service March 24, 2023 Assessment & Plan (1) KENNEY (acute kidney injury): Plan: Non-oliguric but urine output notably reduced. KENNEY consistent with CRS and intravascular volume depletion with superimposed ATN. Prognosis is unfortunately poor. Thankfully, volume status is acceptable and electrolytes are reasonable. 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 I have significant concerns about Martin' ability to tolerate hemodialysis. Unfortunately, I would not expect significant therapeutic benefit with renal replacement therapy. I would suggest palliative care consultation and arranging a family meeting. In the interim, medications are appropriately dosed for kidney function. Avoid aggressive diuresis. Avoid significantly positive fluid balance. (2) CKD (chronic kidney disease): Plan: CKD IV. CHRISTAINO akhtar. Followed by Dr. Escobar as an outpatient. 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 Ability to tolerate HD is significantly poor given medical comorbidities and frailty. (3) Ischemic cardiomyopathy: Plan: Avoid RAAS blockade due to kidney dysfunction. Appreciate cardiology consultation. (4) Acute on chronic HFrEF (heart failure with reduced ejection fraction): (5) ICD (implantable cardioverter-defibrillator), biventricular, in situ: (6) Chronic indwelling Nguyễn catheter: Plan: Nguyễn to gravity. Document strict I/O's. Admission and Anticipated Discharge Date Admission Date: March 17, 2023 Jarad Ballesteros remains on high flow NC this AM. No fevers or chills. He denies chest pains or palpitations. He denies feeling notably dyspnea or tired. He did not sleep well. He admits to generalized fatigue. Non-oliguric but urine output remains reduced. We discussed dialysis. Unfortunately, I had difficulty assessing if Martin understood his condition or what dialysis entails. He never repeated back to me the risk of associated with his condition or renal failure. He could not repeat back to me the potential risks of dialysis. He made comments such as "leave it alone and let's see." He often avoided answering questions by repeating back to me that "none of it was a problem before." Lanny martinez, he told me that we should discuss with his family. Review of Systems Review of Systems: All systems reviewed & are unremarkable except as noted in HPI & below Physical Exam Constitutional: well developed, + ill appearing and + frail appearing Eyes: no scleral abnormality and no corneal abnormality ENMT: High flow nasal cannula Neck: normal visual inspection and trachea midline Respiratory: + tachypneic Auscultation: + rhonchi Cardiovascular: Rate/Rhythm: regular rate Heart Sounds: normal S1, normal S2 and + murmur Extremities: + pedal edema and + varicosities Musculoskeletal: Extremities: + cyanosis; no clubbing Skin: + turgor decreased and + ecchymosis; no jaundice Neurologic: Motor/Sensory: no tremor and no asterixis Psychiatric: Orientation: alert and oriented x 3 Results & Data Vital Signs (Past 12 Hours) Vital Signs Temp Pulse Pulse Resp BP BP Pulse Ox 03/24/23 08:21 73 20 94 03/24/23 07:34 36.2 C L 70 18 98/54 L 95 03/24/23 06:57 70 17 97 03/24/23 06:56 70 17 97 03/24/23 05:24 70 03/24/23 05:06 73 26 H 94 03/24/23 02:12 36.5 C 72 20 96/58 L 90 03/24/23 02:06 70 30 H 92 03/23/23 23:59 03/23/23 23:04 71 23 93 03/23/23 22:46 36.5 C 69 16 93/52 L 92 O2 Del Method O2 Flow Rate FiO2 03/24/23 08:21 High Flow Nasal Cannula 40 100 03/24/23 07:34 BiPAP 03/24/23 06:57 90 03/24/23 06:56 CPAP 90 03/24/23 05:24 03/24/23 05:06 90 03/24/23 02:12 CPAP 03/24/23 02:06 60 03/23/23 23:59 CPAP 03/23/23 23:04 60 03/23/23 22:46 BiPAP Laboratory Results Laboratory Results - last 24 hr 03/23/23 03/24/23 03/24/23 20:22 08:31 08:31 WBC RBC Hgb Hct MCV MCH MCHC RDW Std Deviation RDW Coeff of Anton Plt Count MPV Immature Gran % (Auto) Neut % (Auto) Lymph % (Auto) [place] % (Auto) Eos % (Auto) Baso % (Auto) Neut # (Auto) Lymph # (Auto) [place] # (Auto) Eos # (Auto) Baso # (Auto) Immature Gran # (Auto) Sodium 136 Potassium 4.3 Chloride 100 Carbon Dioxide 25 Anion Gap 11 BUN 54 H Creatinine 3.43 H D Est Cr Clr Drug Dosing 19.2 Est GFR ( Amer) 18.0 Est GFR (Non-Af Amer) 15.5 BUN/Creatinine Ratio 15.7 Glucose 87 POC Glucose 119 H Calcium 8.5 L Phosphorus 4.3 Total Creatine Kinase 22 L 22 L Albumin 2.7 L 03/24/23 08:31 WBC 13.37 H RBC 3.99 L Hgb 12.4 L Hct 37.7 L MCV 94.5 MCH 31.1 MCHC 32.9 RDW Std Deviation 53.6 H RDW Coeff of Anton 15.3 H Plt Count 224 MPV 10.0 Immature Gran % (Auto) 0.6 Neut % (Auto) 88.9 Lymph % (Auto) 3.7 [place] % (Auto) 5.1 Eos % (Auto) 1.3 Baso % (Auto) 0.4 Neut # (Auto) 11.90 H Lymph # (Auto) 0.49 L [place] # (Auto) 0.68 H Eos # (Auto) 0.17 Baso # (Auto) 0.05 Immature Gran # (Auto) 0.08 Sodium Potassium Chloride Carbon Dioxide Anion Gap BUN Creatinine Est Cr Clr Drug Dosing Est GFR ( Amer) Est GFR (Non-Af Amer) BUN/Creatinine Ratio Glucose POC Glucose Calcium Phosphorus Total Creatine Kinase Albumin Diagnostic Findings CT chest diagnostic wo con Comparison: Comparison is made to CT chest 04/03/2018 FINDINGS: Lungs and pleura: Multifocal airspace opacities are seen involving the bilateral lungs. Trace bilateral pleural effusions are seen. Incidental note is made of bi lateral small calcified pleural plaques. Heart and pericardium: Cardiomegaly is seen with biatrial enlargement. Vessels: The pulmonary trunk is enlarged measuring 34 mm. Severe atherosclerosis is seen. Mediastinum and rosalee: Multiple prominent mediastinal lymph nodes measure up to 12 mm in Chest wall and lower neck: Unremarkable. Abdomen: Unremarkable. Bones: Degenerative changes in the thoracic spine. IMPRESSION: 1. Findings are compatible with multifocal pneumonia with reactive lymphadenopathy. 2. Pulmonary hypertension. 3. Trace bilateral pleural effusions. Pleural plaques are noted. PG Care Time/CCT Total # of Minutes Spent Total Time Spent with Patient: Total time spent is greater than 50% in coordination of care (as documented) at patient's floor/unit and/or counseling patient: Coding Level of Care Code 58313 SUB INP/OBS CARE MIN Diagnoses KENNEY (acute kidney injury) N17.9 CKD (chronic kidney disease) N18.9 Ischemic cardiomyopathy I25.5 Acute on chronic HFrEF (heart failure with reduced ejection fraction) I50.23 ICD (implantable cardioverter-defibrillator), biventricular, in situ Z95.810 Chronic indwelling Nguyễn catheter Z97.8
--- NOTE | 2023-03-24 11:24 | Hospitalist Progress Note ---
Date of Service March 24, 2023 Assessment & Plan (1) Hypoxia: Plan: With pulmonary edema and pulmonary vascular congestion with possible pneumonia seen on chest x-ray. With delirium likely more from UTI, but does have some cough and wheeze but also with chronic lung disease The amount of supplemental oxygen required has significantly escalated over the last several days--> he is now requiring Vapotherm HFNC 40L 100% FiO2 alternating with CPAP ABG with hypoxia with PaO2 59, normal pH Repeat chest x-ray continues to significantly worsen and appears consistent with pulmonary edema or ARDS, multifocal pneumonia CT CHest again with severe emphysema, multifocal airspace opacities bilaterally, trace effusions, pulm HTN, and reactive lymphadenopathy Biofire negative on 03/19, procalcitonin negative BNP elevated and oxygenation has worsened despite diuretics WBC count was rising up to 15, but is now decreasing to 13 since changing antibiotics on 03/22 Remains afebrile Consideration to be made for amiodarone toxicity versus ARDS versus bacterial pneumonia/gram-negative pneumonia---> amiodarone stopped Most likely from Gram negative hospital acquired pneumonia -Consult pulmonology appreciated -on 03/22, changed antibiotics to cefepime, doxycycline to cover for atypicals and MRSA despite negative MRSA swab x2 -Continue Duonebs scheduled tid -Continue home COPD inhalers -he does not like the CPAP, so will continue Vapotherm and wean off as tolerated -encouraged flutter valve, ICS -hold further diuresis due to KENNEY--> appreciate consult nephrology -Discontinued amiodarone as per discussion with cardiology (2) Acute metabolic encephalopathy: Plan: [facility] with progressive confusion, auditory and visual hallucinations. Delirium on admission likely secondary to Nguyễn catheter associated UTI. CT Head with no acute issue. Now encephalopathy completely resolved with treatment with IV antibiotics for UTI -completed treatment for UTI -continue treatment for pneumonia as above -Delirium prevention strategies with frequent orientation, maintenance of sleep/wake cycles when able. Patient would benefit from undisturbed sleep, no PM vital signs if they are stable. Avoidance of potential delirium-inducing agents -Maintain fall precautions -Melatonin qHS as needed insomnia (3) UTI (urinary tract infection): Plan: Nguyễn catheter associated UTI, presented w/ acute encephalopathy (now resolved) Urine culture from [facility] with E. coli, Proteus and Enterococcus. Obtained records from [facility]-E. coli pansensitive, Proteus resistant to ampicillin and cefazolin, as well as tetracycline, and Enterococcus resistant to tetracycline Patient with Nguyễn catheter in place since his fall in January, changed twice (most recently 03/16) Nguyễn remaining in place given limited mobility which is now being advanced per orthopedics, able to bear weight. Consider voiding trial if able to make improvement to prevent repeated infections, however with critically ill status now, would not pursue repeat UA no infection -Was on ceftriaxone (coverage for Ecoli/Proteus) + Dapto for coverage for Enteroccocus. MRSA nasal NEGATIVE, however changed to cefepime for pneumonia as above -Last day of therapy will be end of 03/23 for the UTI-stop Dapto. But remainson Cefepime for PNA -Blood cultures -- NGTD -follow CBC, BMP (4) Chronic combined systolic and diastolic CHF (congestive heart failure): Plan: Acute on chronic combined systolic and diastolic CHF Most recent EF 30-35% with wall motion abnormalities, also with right heart failure, moderate-severe MR, and mild AI in 11/2022 With lower extremity edema here that he states is his chronic amount, wheezing and crackles on examination and chest x-ray consistent with pulmonary edema and PNA Has been receiving some intermittent IV lasix here and remains on 5LNC supplementall O2, still w/ pulm edema on CXR and on 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 -hold further lasix for now -continue Toprol XL -stopped lisinopril due to rising creatinine -Not on entresto/SGLT2/spironolactone due to renal failure per CHF notes -continue daily Weights, I&Os -follow BMP, magnesium and replace lytes as needed (5) CKD (chronic kidney disease): Plan: With KENNEY on CKD stage 4 CKD IV at baseline is Cr 2.75 Cr rising again with diuresis to 3.48 today, UOP has gone down hold further lasix, stopped ACEi follow BMP Consult nephrology appreciated Nguyễn catheter in place (6) Anabel-prosthetic fracture around prosthetic hip: Plan: Patient admitted to [facility] following a fall resulting in a anabel-prosthetic fracture of the left hip. Has been following with Orthopedic Surgery - last seen 03/10/23. During that time was complaining of pain with motion. He had X- rays obtained which showed the fracture in good alignment. He was progressed to weight bearing of the LLE as tolerated. PT evaluation for ambulation as tolerated LLE weight bearing with caution He is to followup with Ortho in another 6 weeks. (7) Ischemic cardiomyopathy: Plan: AICD in place - done in December by Dr. Mary. meds as above s/p cardioversion as above 03/19 (8) Elevated troponin: Plan: Patient denies chest pain. No acute ischemic changes Serial troponin stable at 42/41 Likely myocardial demand ischemia in the setting of hypoxia and acute illness with underlying CAD (9) COPD (chronic obstructive pulmonary disease): Plan: With hypoxia as above, severe emphysematous changes on CT Chest -Continue Breo Ellipta daily -Duoneb scheduled tid -Suspect he does likely have underlying LEONIDES -cannot otlerate CPAP -continue supplemental O2 to keep POx> 89% (10) Paroxysmal atrial flutter: Plan: V-paced on EKG.had cardioversion during this admission -reduced amiodarone to 200mg daily per Dr Mary because of thyroid dysfunction, but now will discontinue due to possible pulmonary toxicity -Continue Apixaban 2.5mg po BID -Continue metoprolol 25mg po qHS (11) Coronary artery disease: Plan: Remote history of RCA stent With myocardial demand ischemia as noted above -Continue apixaban, metoprolol. -Aspirin added back 03/17 which was not on his home med rec. Noting patient statin intolerant (12) History of pulmonary embolism: Plan: -Continue Eliquis (13) Hypertension: Plan: Blood pressures are controlled Continue home metoprolol,But now stopped lisinopril 2.5mg as above, no hypotension, BP stable Lasix resumed as above given CHF and BPs remaining stable w/ additional IV lasix as well Monitor (14) PAD (peripheral artery disease): Plan: With stent in the groin, history of carotid artery stenosis Continue aspirin and is intolerant of statins (15) Constipation: Plan: Was a major issue last admission but seems to be improved Continue senna/docusate, MiraLAX as needed BM reported 03/20 (16) Elevated alkaline phosphatase level: Plan: bony from hip fracture vs liver from amiodarone and/or hepatic congestion from CHF? Total bilirubin mildly elevated and has been for quite some time No abdominal pain or tenderness, no need for abdominal imaging at present Repeat LFTs w/ TB normalized (suspect from hepatic congestion, ALP now upper limits of normal w/ continued diuretics) Reduced amio as above to 200mg daily and now discontinued (17) Wound of lower extremity: Plan: Secondary to recent fall with sutures under left fifth toe and multiple small wounds on legs Consulted wound care while inpatient Sutures removed 03/19 (18) Abnormal TSH: Plan: TSH continues to trend upward since November, now up to 7.7 with normal free T4 Most likely secondary to amiodarone therapy Consulted cardiology to discuss weaning off amiodarone and potentially starting another antiarrhythmic versus rate control strategy-cardioverted and reduced amiodarone dose to 200mg daily -Started Synthroid 25mcg daily -follow TSH in 6 weeks Plan Disposition-continued stay PCU, prognosis guarded, may end up going to [facility] if worsens DNR/DNI Admission and Anticipated Discharge Date Admission Date: March 17, 2023 Subjective Pt was on CPAP all day yesterday and through the night. Now returned from CT chest and on HFNC 40L, 100% FiO2. Seen earlier in the AM and again in afternoon with daughter and grandchildren present at bedside. Pt reaffirms he does not want intubation and would want to pursue comfort measures if worsens. He does not want dialysis and in d/w Nephro would not be of much benefit anyway. He denies pain. When I saw him later in afternoon, he had slept all day and was feeling a bit better, more energetic, still on 95% FiO2 on HFNC. Was eating dinner. He did cough up some moderate amount of sputum today as per daughter with a small amount of blood streaked. I discussed his care with PULM and NEPHRO. Tele with paced rhythm in 70s Physical Exam Constitutional: WD/WN, vitals as above appears unwell Neck: trachea midline, no thyromegaly Respiratory: normal respiratory effort Auscultation: + crackles (bibasilar) and + wheezes (bilat but improved) Cardiovascular: Rate/Rhythm: regular rate and regular rhythm Extremities: + edema (1+ pitting edema legs bilat) Gastrointestinal (Abdomen): normal bowel sounds, soft, nontender, no hepatosplenomegaly Neurologic: moves all extremities and awake; no focal motor deficits Psychiatric: A+Ox3, euthymic affect Results & Data Results & Data Vital Signs (Past 12 Hours) Vital Signs Temp Pulse Pulse Resp BP BP Pulse Ox 08/30/23 11:13 70 20 96 03/24/23 08:21 73 20 94 03/24/23 07:34 36.2 C L 70 18 98/54 L 95 03/24/23 06:57 70 17 97 03/24/23 06:56 70 17 97 03/24/23 05:24 70 03/24/23 05:06 73 26 H 94 03/24/23 02:12 36.5 C 72 20 96/58 L 90 03/24/23 02:06 70 30 H 92 03/23/23 23:59 O2 Del Method O2 Flow Rate FiO2 03/24/23 11:13 High Flow Nasal Cannula 40 100 03/24/23 08:21 High Flow Nasal Cannula 40 100 03/24/23 07:34 BiPAP 03/24/23 06:57 90 03/24/23 06:56 CPAP 90 03/24/23 05:24 03/24/23 05:06 90 03/24/23 02:12 CPAP 03/24/23 02:06 60 03/23/23 23:59 CPAP Laboratory Results CBC, BMP, CK reviewed Diagnostic Findings CT CHest images personally reviewed Chest CT 03/24/23 07:17 CT chest diagnostic wo con CLINICAL HISTORY: hypoxia,pneumonia TECHNIQUE: Multidetector row helical CT of the chest was performed. Coronal and sagittal reformations were obtained. Automated dose lowering techniques and/or adjustment according to patient size were utilized for this exam. CT DOSE: 920.10 mGy.cm Comparison: Comparison is made to CT chest 04/03/2018 FINDINGS: Lungs and pleura: Multifocal airspace opacities are seen involving the bilateral lungs. Trace bilateral pleural effusions are seen. Incidental note is made of bilateral small calcified pleural plaques. Heart and pericardium: Cardiomegaly is seen with biatrial enlargement. Vessels: The pulmonary trunk is enlarged measuring 34 mm. Severe atherosclerosis is seen. Mediastinum and rosalee: Multiple prominent mediastinal lymph nodes measure up to 12 mm in Chest wall and lower neck: Unremarkable. Abdomen: Unremarkable. Bones: Degenerative changes in the thoracic spine. IMPRESSION: 1. Findings are compatible with multifocal pneumonia with reactive lymphadenopathy. 2. Pulmonary hypertension. 3. Trace bilateral pleural effusions. Pleural plaques are noted. ACT 112: Negative or not required by law. Electronically signed by: Seth Romano M.D. 03/24/2023 8:15 AM PG Care Time/CCT Total # of Minutes Spent Total Time Spent with Patient: Total time spent is greater than 50% in coordination of care (as documented) at patient's floor/unit and/or counseling patient: Coding Level of Care Code 41985 SUB INP/OBS CARE 3/50MIN Diagnoses Hypoxia R09.02 Acute metabolic encephalopathy G93.41 UTI (urinary tract infection) N39.0 Chronic combined systolic and diastolic CHF (congestive heart failure) I50.42 CKD (chronic kidney disease) N18.9 Anabel-prosthetic fracture around prosthetic hip M97.8XXD; Z96.649 Encounter type: subsequent encounter Ischemic cardiomyopathy I25.5 Elevated troponin R77.8 COPD (chronic obstructive pulmonary disease) J44.9 COPD type: unspecified COPD Paroxysmal atrial flutter I48.92 Coronary artery disease I25.10 Associated angina: without angina Coronary Disease-Associated Artery/Lesion type: [place] artery [place] vs. transplanted heart: [place] heart History of pulmonary embolism Z86.711 Hypertension I10 Hypertension type: essential hypertension PAD (peripheral artery disease) I73.9 Constipation K59.00 Elevated alkaline phosphatase level R74.8 Wound of lower extremity S81.809A Abnormal TSH R79.89 (6) Anabel-prosthetic fracture around prosthetic hip Encounter type: subsequent encounter Qualified Code(s): M97.8XXD - Periprosthetic fracture around other internal prosthetic joint, subsequent encounter; Z96.649 - Presence of unspecified artificial hip joint (9) COPD (chronic obstructive pulmonary disease) COPD type: unspecified COPD Qualified Code(s): J44.9 - Chronic obstructive pulmonary disease, unspecified (11) Coronary artery disease Associated angina: without angina Coronary Disease-Associated Artery/Lesion type: [place] artery [place] vs. transplanted heart: [place] heart Qualified Code(s): I25.10 - Atherosclerotic heart disease of [place] coronary artery without angina pectoris (13) Hypertension Hypertension type: essential hypertension Qualified Code(s): I10 - Essential (primary) hypertension
[2023-03-24] MEDS ORDERED: DAPTOmycin 500 MG in SYRINGE 0 ML IV SCH (14:00)
--- NOTE | 2023-03-24 14:07 | Pulmonology Progress Note ---
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 Acute on Chronic Respiratory Failure -Combined Systolic/Diastolilc HF -COPD Exacerbation -Pneumonia? -Daptomycin/Cefepime 2. Acute HF -Systolic/Diastollic -diuresis -ECHO: EF=30-35% with Moderate to Severe MR -Cardiology following 3. COPD Exacerbation -multifactorial -Acute HF: systolic/Diastolic -pneumonia -requiring BiPAP/High Flow Oxygen -steroids -Severe COPD per Chest CT scan 4. Pneumonia -sputum culture -Cefepime 5. CKD-Stage IV -worsening due to poor cardiac function/poor CO -Nephrology evaluation -avoid nephrotoxic agents 6. Atrial Flutter -Cardiology folloiwng -S/P Cardioversion -Sinus Rythm currently -using apixiban Pulmonary time spent examining and speaking to patient, reviewing all of patient's diagnostic study including his lab work all radiologic studies and discussing his pulmonary management with the pulmonary team, including Ernesto iVera PA-C exclusive of any invasive procedures or family conferences today was 40 minutes. Admission and Anticipated Discharge Date Admission Date: March 17, 2023 Subjective Following a long detailed discussion with patient's daughter and patient in regards to any aggressive therapy such as intubation or dialysis, it was agreed upon that we would continue to keep patient comfortable but not use any extraordinary measures in order to resuscitate him and he remains a DNR/DNI. Patient still requiring significant amount of oxygen on high flow at 95%. No new problems through the night of this morning Review of Systems Review of Systems: All systems reviewed & are unremarkable except as noted in Subjective Physical Exam Constitutional: Patient requiring high flow nasal cannula at 95% but appears comfortable. Eyes: PERRL, conjunctivae normal, anicteric sclerae ENMT: external ear and nose normal, oropharynx normal Neck: trachea midline, no thyromegaly Respiratory: Diminished breath sounds to the bases with occasional coarse rhonchi. No wheezing no cough at this time. Gastrointestinal (Abdomen): normal bowel sounds, soft, nontender, no hepatosplenomegaly Musculoskeletal: Some bony deformities to knees feet and hands consistent with arthritis. Patient still has a. Prosthetic fracture to his prosthetic hip. Although he complains of minimal pain Skin: no rashes, warm and dry Neurologic: patellar DTR's 2+ bilat, sensation intact and PERRL, EOMI, accommodation nl, no face palsy, no dysarthria Psychiatric: A+Ox3, euthymic affect Results & Data Results & Data Vital Signs (Past 12 Hours) Vital Signs Temp Pulse Pulse Resp BP BP Pulse Ox 03/24/23 13:14 70 20 96 03/24/23 13:12 70 20 96 03/24/23 13:01 03/24/23 11:08 36.8 C 70 20 101/58 L 97 03/24/23 11:13 70 20 96 03/24/23 08:21 73 20 94 03/24/23 07:34 36.2 C L 70 18 98/54 L 95 03/24/23 06:57 70 17 97 03/24/23 06:56 70 17 97 03/24/23 05:24 70 03/24/23 05:06 73 26 H 94 03/24/23 02:12 36.5 C 72 20 96/58 L 90 03/24/23 02:06 70 30 H 92 O2 Del Method O2 Flow Rate FiO2 03/24/23 13:14 High Flow Nasal Cannula 40 100 03/24/23 13:12 High Flow Nasal Cannula 40 100 03/24/23 13:01 High Flow Nasal Cannula 40 100 03/24/23 11:08 High Flow Nasal Cannula 40 100 03/24/23 11:13 High Flow Nasal Cannula 40 100 03/24/23 08:21 High Flow Nasal Cannula 40 100 03/24/23 07:34 BiPAP 03/24/23 06:57 90 03/24/23 06:56 CPAP 90 03/24/23 05:24 03/24/23 05:06 90 03/24/23 02:12 CPAP 03/24/23 02:06 60 Laboratory Results Laboratory Results WBC 13.37 K/ul (4.8-10.8) H 03/24/23 08:31 RBC 3.99 M/uL (4.70-6.10) L 03/24/23 08:31 Hgb 12.4 g/dl (14.0-18.0) L 03/24/23 08:31 Hct 37.7 % (42.0-52.0) L 03/24/23 08:31 MCV 94.5 fL (80.0-100.0) 03/24/23 08:31 MCH 31.1 pg (25.0-34.0) 03/24/23 08:31 MCHC 32.9 g/dL (32.0-36.0) 03/24/23 08:31 RDW Std Deviation 53.6 fL (36.4-46.3) H 03/24/23 08:31 RDW Coeff of Anton 15.3 % (11.5-14.5) H 03/24/23 08:31 Plt Count 224 K/uL (130-400) 03/24/23 08:31 MPV 10.0 fL (9.4-12.4) 03/24/23 08:31 Immature Gran % (Auto) 0.6 % 03/24/23 08:31 Neut % (Auto) 88.9 % 03/24/23 08:31 Lymph % (Auto) 3.7 % 03/24/23 08:31 Harrison % (Auto) 5.1 % 03/24/23 08:31 Eos % (Auto) 1.3 % 03/24/23 08:31 Baso % (Auto) 0.4 % 03/24/23 08:31 Neut # (Auto) 11.90 K/uL (1.40-6.50) H 03/24/23 08:31 Lymph # (Auto) 0.49 K/uL (1.20-3.40) L 03/24/23 08:31 Harrison # (Auto) 0.68 K/uL (0.11-0.59) H 03/24/23 08:31 Eos # (Auto) 0.17 K/uL (0.00-0.50) 03/24/23 08:31 Baso # (Auto) 0.05 K/uL (0.00-0.20) 03/24/23 08:31 Immature Gran # (Auto) 0.08 K/uL (0.01-0.20) 03/24/23 08:31 PT 12.9 Seconds (9.0-12.0) H 03/16/23 18:23 INR 1.2 (0.9-1.1) H 03/16/23 18:23 ABG pH 7.44 (7.35-7.45) 03/22/23 10:17 ABG pCO2 41 mmHg (35-46) 03/22/23 10:17 ABG pO2 59 mmHg (80-95) L 03/22/23 10:17 ABG HCO3 28 mmol/L (19-24) H 03/22/23 10:17 ABG O2 Saturation 90.7 % (90-95) 03/22/23 10:17 ABG Base Excess 3.3 mEq/L (-9-1.8) H 03/22/23 10:17 Lito Test Pos (Pos) 03/22/23 10:17 Oxygen Given 5L 03/22/23 10:17 Sodium 136 mmol/L (136-145) 03/24/23 08:31 Potassium 4.3 mmol/L (3.5-5.1) 03/24/23 08:31 Chloride 100 mmol/L (98-107) 03/24/23 08:31 Carbon Dioxide 25 mmol/L (21-32) 03/24/23 08:31 Anion Gap 11 (3-11) 03/24/23 08:31 BUN 54 mg/dl (6-23) H 03/24/23 08:31 Creatinine 3.43 mg/dl (0.6-1.4) H D 03/24/23 08:31 Est Cr Clr Drug Dosing 19.2 ml/min 03/24/23 08:31 Est GFR ( Amer) 18.0 ml/min 03/24/23 08:31 Est GFR (Non-Af Amer) 15.5 ml/min 03/24/23 08:31 BUN/Creatinine Ratio 15.7 (10-20) 03/24/23 08:31 Glucose 87 mg/dl (70-99(Fasting)) 03/24/23 08:31 POC Glucose 119 mg/dl (70-99) H 03/23/23 20:22 Lactate 1.9 mmol/L (0.4-2.0) 03/16/23 18:23 Calcium 8.5 mg/dl (8.6-10.3) L 03/24/23 08:31 Phosphorus 4.3 mg/dl (2.5-4.9) 03/24/23 08:31 Magnesium 2.1 mg/dl (1.7-2.4) 03/23/23 07:11 Total Bilirubin 0.9 mg/dl (0.2-1.0) 03/23/23 07:11 Direct Bilirubin 0.2 mg/dl (0-0.2) 03/19/23 09:45 AST 20 U/L (13-39) 03/23/23 07:11 ALT 9 U/L (7-52) 03/23/23 07:11 Alkaline Phosphatase 100 U/L (34-104) 03/23/23 07:11 Ammonia 11.0 umol/L (18-72) L 03/16/23 18:45 Total Creatine Kinase 22 U/L (30-223) L 03/24/23 08:31 Total Creatine Kinase 22 U/L (30-223) L 03/24/23 08:31 Troponin I High Sens 41.1 pg/ml (0-20) H 03/17/23 04:03 B-Natriuretic Peptide 994 pg/ml (0-100) H 03/22/23 06:28 Total Protein 6.3 gm/dl (6.0-8.3) 03/23/23 07:11 Albumin 2.7 gm/dl (3.4-5.0) L 03/24/23 08:31 Globulin 3.5 gm/dl (2.5-4.0) 03/23/23 07:11 Albumin/Globulin Ratio 0.8 (0.9-2) L 03/23/23 07:11 Procalcitonin 0.34 ng/ml (0-0.5) 03/23/23 07:11 TSH 7.762 uIu/ml (0.300-4.500) H 03/16/23 18:23 Free T4 1.27 ng/dl (0.61-1.60) 03/16/23 18:23 Urine Color Yellow 03/21/23 Unknown Urine Appearance Clear (Clear) 03/21/23 Unknown Urine pH 6.0 (4.5-7.5) 03/21/23 Unknown Ur Specific Grayling 1.009 (1.000-1.030) 03/21/23 Unknown Urine Protein Negative (Negative) 03/21/23 Unknown Urine Glucose (UA) Negative (Negative) 03/21/23 Unknown Urine Ketones Negative (Negative) 03/21/23 Unknown Urine Blood Negative (Negative) 03/21/23 Unknown Urine Nitrite Negative (Negative) 03/21/23 Unknown Urine Bilirubin Negative (Negative) 03/21/23 Unknown Urine Urobilinogen Negative (Negative) 03/21/23 Unknown Ur Leukocyte Esterase Negative (Negative) 03/21/23 Unknown Urine WBC (Auto) 1-5 /hpf (0-5) 03/16/23 21:04 Urine RBC (Auto) >30 /hpf (0-4) H 03/16/23 21:04 U Hyaline Cast (Auto) 1-5 /lpf (0-5) 03/16/23 21:04 U Epithel Cells (Auto) >30 /lpf (0-5) H 03/16/23 21:04 Urine Bacteria (Auto) Negative (Negative) 03/16/23 21:04 Ur Renal Epithelial Cell Not Reportable 03/16/23 21:04 Nasal Screen MRSA (PCR) Negative (Negative) 03/23/23 06:15 Adenovirus (PCR) Not Detected (NotDetected) 03/19/23 17:10 B. pertussis DNA (PCR) Not Detected (NotDetected) 03/19/23 17:10 B.parapertussis DNA PCR Not Detected (NotDetected) 03/19/23 17:10 C. pneumoniae DNA (PCR) Not Detected (NotDetected) 03/19/23 17:10 Coronavirus OC43 (PCR) Not Detected (NotDetected) 03/19/23 17:10 Coronavirus HKU1 (PCR) Not Detected (NotDetected) 03/19/23 17:10 Coronavirus 229E (PCR) Not Detected (NotDetected) 03/19/23 17:10 SARS-CoV-2 (PCR) Not Detected (NotDetected) 03/19/23 17:10 Coronavirus NL63 (PCR) Not Detected (NotDetected) 03/19/23 17:10 Human Metapneumovir PCR Not Detected (NotDetected) 03/19/23 17:10 Influenza Type A (PCR) Not Detected (NotDetected) 03/19/23 17:10 Influenza Type B (PCR) Not Detected (NotDetected) 03/19/23 17:10 M. pneumoniae (PCR) Not Detected (NotDetected) 03/19/23 17:10 Parainfluenza 1 (PCR) Not Detected (NotDetected) 03/19/23 17:10 Parainfluenza 2 (PCR) Not Detected (NotDetected) 03/19/23 17:10 Parainfluenza 3 (PCR) Not Detected (NotDetected) 03/19/23 17:10 Parainfluenza 4 (PCR) Not Detected (NotDetected) 03/19/23 17:10 RSV (PCR) Not Detected (NotDetected) 03/19/23 17:10 Entero/Rhino (PCR) Not Detected (NotDetected) 03/19/23 17:[address] 03/16/23 18:26 Exam(s): CT HEAD Without Contrast EXAM: CT Head Without Intravenous Contrast CLINICAL HISTORY: Reason for exam: hallucinations. TECHNIQUE: Axial computed tomography images of the head/brain without intravenous contrast. CTDI is 37.78 mGy and DLP is 703.85 mGy-cm. Automated exposure control was utilized for the study. A dose lowering technique was utilized adhering to the principles of ALARA. COMPARISON: CT head on 11/19/2022 FINDINGS: Brain: No acute infarct or hemorrhage identified. No extra-axial fluid collection. No mass effect or midline shift. Scattered areas of hypoattenuation in the supratentorial white matter likely represent chronic small vessel ischemic changes. Ventricles and sulci: Prominence of the ventricles and sulci is likely secondary to cerebral volume loss. Bones: Normal. No bony lesion or acute fracture. Subcutaneous tissues: Normal. Sinuses: Normal. No air-fluid levels or mucosal thickening. Mastoid air cells: Small amount of fluid in the inferior mastoid air cells. Orbits: Bilateral lens implants. Other: Atherosclerotic calcifications in the intracranial vasculature. IMPRESSION: 1. No acute intracranial abnormality. If there is persistent concern for an acute process, consider further evaluation with MRI. 2. Chronic small vessel ischemic changes and cerebral volume loss. Electronically signed by: Francisco Guan M.D. 03/16/23 19:42 PM Hip/Pelvis X-Ray 03/16/23 18:26 XR hip LT 2V w pelvis CLINICAL HISTORY: weak, recent frx, hallucinations TECHNIQUE: 2 views of the left hip and single frontal view of the pelvis were obtained. Comparison: Comparison is made to hip radiograph 03/11/[address] left hip 02/09/2023 FINDINGS: Redemonstration of comminuted fracture about the intertrochanteric left femur. Total hip arthoplasty hardware is seen without perihardware lucency or hardware fracture. Vascular calcifications are seen. There is a right arterial stent. IMPRESSION: Redemonstration of periprosthetic fracture. No new acute fractures are seen. ACT 112: Negative or not required by law. Electronically signed by: Seth Romano M.D. 03/17/2023 7:44 AM Chest X-Ray 03/22/23 16:05 XR chest 1V portable CLINICAL HISTORY: hypoxia COMPARISON STUDY: Chest radiograph March 22, 2023 at 6:39 AM. FINDINGS: Pacer/AICD is in place. There is no pneumothorax or pleural effusion. Cardiomegaly is again noted. Interstitial thickening and multifocal bilateral airspace opacities have slightly progressed. IMPRESSION: Multifocal bilateral airspace opacities and interstitial thickening which have mildly progressed. The findings may reflect pulmonary edema or multifocal pneumonia. ACT 112: Negative or not required by law. Electronically signed by: Prashanth Osorio M.D. 03/22/2023 4:[address] 03/24/23 07:17 CT chest diagnostic wo con CLINICAL HISTORY: hypoxia,pneumonia TECHNIQUE: Multidetector row helical CT of the chest was performed. Coronal and sagittal reformations were obtained. Automated dose lowering techniques and/or adjustment according to patient size were utilized for this exam. CT DOSE: 920.10 mGy.cm Comparison: Comparison is made to CT chest 04/03/2018 FINDINGS: Lungs and pleura: Multifocal airspace opacities are seen involving the bilateral lungs. Trace bilateral pleural effusions are seen. Incidental note is made of bilateral small calcified pleural plaques. Heart and pericardium: Cardiomegaly is seen with biatrial enlargement. Vessels: The pulmonary trunk is enlarged measuring 34 mm. Severe atherosclerosis is seen. Mediastinum and rosalee: Multiple prominent mediastinal lymph nodes measure up to 12 mm in Chest wall and lower neck: Unremarkable. Abdomen: Unremarkable. Bones: Degenerative changes in the thoracic spine. IMPRESSION: 1. Findings are compatible with multifocal pneumonia with reactive lymphadenopathy. 2. Pulmonary hypertension. 3. Trace bilateral pleural effusions. Pleural plaques are noted. ACT 112: Negative or not required by law. Electronically signed by: Seth Romano M.D. 03/24/2023 8:15 AM Medications Administered Home Medications Medication Instructions Recorded Confirmed Last Taken acetaminophen 325 mg tablet 650 mg PO Q6 PRN Fever Or Pain 03/16/23 03/16/23 Unknown (Tylenol) amiodarone 200 mg tablet 200 mg PO BID 03/16/23 03/16/23 03/16/23 09:00 ampicillin 500 mg capsule 500 mg PO Q12 03/16/23 03/16/23 Unknown apixaban 2.5 mg tablet (Eliquis) 2.5 mg PO BID 03/16/23 03/16/23 03/16/23 09:00 cholecalciferol (vitamin D3) 50 50 mcg PO DAILY 03/16/23 03/16/23 03/16/23 09:00 mcg (2,000 unit) tablet (Vitamin D3) fluticasone furoate 100 1 inh inhalation DAILY 03/16/23 03/16/23 03/16/23 09:00 mcg-vilanterol 25 mcg/dose inhalation powder (Breo Ellipta) furosemide 20 mg tablet 20 mg PO DAILY 03/16/23 03/16/23 03/16/23 09:00 ipratropium 0.5 mg-albuterol 3 mg 3 ml inhalation Q6H PRN .SOB/COUGH 03/16/23 03/16/23 Unknown (2.5 mg base)/3 mL nebulization soln melatonin 5 mg tablet 5 mg PO HS 03/16/23 03/16/23 Unknown metoprolol succinate 25 mg 25 mg PO HS 03/16/23 03/16/23 Unknown tablet,extended release 24 hr nitroglycerin 0.4 mg sublingual 0.4 mg sublingual DIRECTED PRN 03/16/23 03/16/23 Unknown tablet (Nitrostat) .CHEST PAIN nystatin 100,000 unit/mL oral 5 ml PO Q6 .SORE MOUTH 03/16/23 03/16/23 03/16/23 13:00 suspension potassium chloride 10 mEq 10 meq PO DAILY 03/16/23 03/16/23 03/16/23 09:00 tablet,extended release sennosides 8.6 mg-docusate sodium 1 tab-cap PO DAILY 03/16/23 03/16/23 03/16/23 08:00 50 mg tablet (Senna-S) Active Medications Generic Name Dose Route Start Last Admin Trade Name Freq PRN Reason Stop Dose Admin Albuterol 3 ml 03/22/23 19:00 03/24/23 13:10 Albut/Ipratrop 3mg/0.5mg Neb 3 Ml Vial INH 04/21/23 18:59 3 ml TIDR MARIO Administration Protocol Apixaban 2.5 mg 03/17/23 09:00 03/24/23 09:27 Apixaban 2.5 Mg Tab PO 04/16/23 08:59 2.5 mg BID MARIO Administration Aspirin 81 mg 03/17/23 09:15 03/24/23 09:27 Aspirin 81 Mg Ectab PO 04/16/23 09:14 81 mg QAM MARIO Administration Fluticasone/Vilanterol 1 puffs 03/17/23 09:00 03/24/23 09:28 Fluticasone/Vilanterol 100/25mcg 14 Puffs/Inhaler INH 04/16/23 08:59 1 puffs DAILY MARIO Administration Furosemide 40 mg 03/17/23 09:00 03/24/23 09:28 Furosemide 40 Mg Tab PO 04/16/23 08:59 40 mg DAILY MARIO Administration Doxycycline Hyclate 100 mg/ 110 mls @ 50 mls/hr 03/23/23 00:00 03/24/23 12:01 Dextrose IV 03/30/23 00:00 50 mls/hr Q12H MARIO Administration Cefepime HCl 1,000 mg/ Syringe 10 mls @ 5 mls/min 03/23/23 12:00 03/24/23 12:01 IV 03/29/23 23:59 5 mls/min Q12H MARIO Administration Levothyroxine Sodium 25 mcg 03/19/23 06:30 03/24/23 05:53 Levothyroxine Sodium 25 Mcg Tablet PO 04/18/23 06:29 25 mcg DAILYBB MARIO Administration Lisinopril 2.5 mg 03/19/23 14:45 03/23/23 08:01 Lisinopril 2.5 Mg Tab PO 04/18/23 14:44 2.5 mg QAM MARIO Administration Magnesium Oxide 400 mg 03/20/23 17:00 03/24/23 09:27 Magnesium Oxide 400 Mg Tab PO 04/19/23 16:59 400 mg QAM MARIO Administration Melatonin 6 mg 03/20/23 22:00 03/23/23 20:02 Melatonin 3 Mg Tab PO 04/19/23 21:59 6 mg HSZ MARIO Administration Metoprolol Succinate 25 mg 03/17/23 21:00 03/23/23 20:02 Metoprolol Succ 25mg Ext Rel Tab PO 04/16/23 20:59 25 mg HS MARIO Administration Senna/Docusate Sodium 1 tab 03/17/23 09:00 03/24/23 09:30 Docusate Sodium/Senna 50/8.6mg Tab PO 04/16/23 08:59 1 tab DAILY MARIO Administration Vitamin D 2,000 units 03/17/23 09:00 03/24/23 09:28 Cholecalciferol 1,000 Units 25 Mcg Tab PO 04/16/23 08:59 2,000 units DAILY MARIO Administration PG Care Time/CCT Total # of Minutes Spent Total Time Spent with Patient: Total time spent is greater than 50% in coordination of care (as documented) at patient's floor/unit and/or counseling patient: Coding Level of Care Code 44006 SUB INP/OBS CARE 2/35MIN Diagnoses Hypothyroidism E03.9 ICD (implantable cardioverter-defibrillator), biventricular, in situ Z95.810 Wound of lower extremity S81.809A Acute UTI N39.0 Delirium R41.0 Anabel-prosthetic fracture around prosthetic hip M97.8XXD; Z96.649 Encounter type: subsequent encounter 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
[2023-03-24] MEDS: METOPROLOL SUCC 25MG EXT REL TAB PO SCH (19:56)
[2023-03-24] MEDS: MELATONIN 3 MG TAB PO SCH (20:05)
[2023-03-25] MEDS ORDERED: FUROSEMIDE 40 MG/4 ML VIAL IV ONE (00:55)
[2023-03-25] MEDS: DOXYCYCLINE HYCLATE 100 MG in DEXTROSE 5% 100 ML IV SCH ×3 (01:19→23:59)
[2023-03-25] MEDS: CEFEPIME 1,000 MG in SYRINGE 0 ML IV SCH ×3 (01:19→23:59)
[2023-03-25 03:08] LABS: Influenza A virus by PCR Negative (Neg); Influenza B virus by PCR Negative (Neg); RSV by PCR Negative (Neg); SARS CoV2 RNA(COVID-19) Ceph NEGATIVE (Negative)
[2023-03-25] MEDS: LEVOTHYROXINE SODIUM 25 MCG TABLET PO SCH (06:12)
[2023-03-25] MEDS: ALBUT/IPRATROP 3MG/0.5MG NEB 3 ML VIAL INH SCH ×3 (07:16→18:15)
[2023-03-25 07:33] LABS: Hematocrit (blood only) 38.6 % (42.0-52.0); Hemoglobin 12.9 g/dl (14.0-18.0); Mean Corpuscular Hemoglobin 31.2 pg (25.0-34.0); Mean Corpuscular Hgb Conc 33.4 g/dL (32.0-36.0); Mean Corpuscular Volume 93.5 fL (80.0-100.0); Mean Platelet Volume 9.8 fL (9.4-12.4); Platelet Count 217 K/uL (130-400); RDW Standard Deviation 51.5 fL (36.4-46.3); Red Blood Count 4.13 M/uL (4.70-6.10); White Blood Count 12.26 K/ul (4.8-10.8)
--- NOTE | 2023-03-25 07:44 | XRay Report ---
SINGLE VIEW CHEST CLINICAL HISTORY: Hypoxia. FINDINGS: An AP, portable, upright chest radiograph is compared to study dated 03/22/2023 and correlat ed with chest CT dated 03/24/2023. The examination is degraded by portable technique, apical lordotic positioning, and patient rotation. A 3-lead cardiac AICD is unchanged in position. The heart is enla rged noting atherosclerotic calcification of the thoracic aorta. There is pulmonary vascular congesti on. Diffuse bilateral airspace opacities likely represent pulmonary edema. Small pleural effusions ar e observed. The lungs and pleural spaces are clear. No pneumothorax is seen. The skeletal structures are osteopenic. The bony thorax is grossly intact. Arthritic change is seen in the shoulders. Cholecy stectomy clips are noted in the right upper quadrant. IMPRESSION: 1. Cardiomegaly and AICD with evidence of congestive failure. 2. Diffuse bilateral airspace opacities are similar to previous and likely represent pulmonary edema. Correlate clinically for evidence of a superimposed infectious/inflammatory pneumonitis. Radiographi c follow-up to resolution is recommended. 3. Small pleural effusions. ACT 112: Negative or not required by law. Electronically signed by: Dionte Altman M.D. 03/25/2023 7:42 AM
[2023-03-25 07:50] LABS: Albumin Level 2.7 gm/dl (3.4-5.0); BUN Creatinine Ratio 15.9 (10-20); Calcium 8.7 mg/dl (8.6-10.3); Creatinine Clr Calc Pharmacy 16.4 ml/min; Est GFR (African American) 14.8 ml/min; Est GFR (Non-African American) 12.8 ml/min; Phosphorus 4.2 mg/dl (2.5-4.9); Potassium 4.4 mmol/L (3.5-5.1)
[2023-03-25] MEDS: APIXABAN 2.5 MG TAB PO SCH ×2 (09:12→20:59)
[2023-03-25] MEDS: MAGNESIUM OXIDE 400 MG TAB PO SCH (09:12)
[2023-03-25] MEDS: ASPIRIN 81 MG ECTAB PO SCH (09:12)
[2023-03-25] MEDS: CHOLECALCIFEROL 1,000 UNITS 25 MCG TAB PO SCH (09:13)
[2023-03-25] MEDS: FLUTICASONE/VILANTEROL 100/25MCG 14 PUFFS/INHALER INH SCH (09:15)
[2023-03-25] MEDS: DOCUSATE SODIUM/SENNA 50/8.6MG TAB PO SCH (09:17)
--- NOTE | 2023-03-25 09:37 | Nephrology Progress Note ---
Date of Service March 25, 2023 Assessment & Plan (1) KENNEY (acute kidney injury): Plan: Relatively oliguric. KENNEY in the setting of CRS and intravascular volume depletion with superimposed ATN. Prognosis is unfortunately very poor. Thankfully, electrolytes are reasonable. Dialysis will not be considered part of the plan of care based on patient's wishes. Ultimately, palliative approach to management with supportive care is best. Diuretics may be used PRN to encourage urine output. Avoid aggressive diuresis. Medications are appropriately dosed for kidney function. Consideration could be given to q 24 hour dosing of cefepime. (2) CKD (chronic kidney disease): Plan: CKD IV. UA hermilo. Followed by Dr. Escobar as an outpatient. 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 Ability to tolerate HD is significantly poor given medical comorbidities and frailty. (3) Ischemic cardiomyopathy: Plan: Avoid RAAS blockade due to kidney dysfunction. Continue to hold ACEi. (4) Acute on chronic HFrEF (heart failure with reduced ejection fraction): (5) ICD (implantable cardioverter-defibrillator), biventricular, in situ: (6) Chronic indwelling Nguyễn catheter: Plan: Nguyễn to gravity. Document strict I/O's. Admission and Anticipated Discharge Date Admission Date: March 17, 2023 Subjective Remains in notable hypoxic respiratory failure on Vapotherm with high flow nasal canula. Thankfully, Favian feels reasonably comfortable. He denies feeling significantly dyspneic. Urine output decreased. Relatively oliguric. Furosemide 20 mg provided overnight without significant response. No fevers or chills. Favian confirmed that he does not want dialysis. Review of Systems Review of Systems: All systems reviewed & are unremarkable except as noted in HPI & below Physical Exam Constitutional: well developed, + ill appearing and + frail appearing Eyes: no scleral abnormality and no corneal abnormality Neck: normal visual inspection and trachea midline Respiratory: + tachypneic Auscultation: + rhonchi Cardiovascular: Rate/Rhythm: regular rate Heart Sounds: normal S1, normal S2 and + murmur Extremities: + pedal edema and + varicosities Musculoskeletal: Extremities: + cyanosis; no clubbing Skin: + turgor decreased and + ecchymosis; no jaundice Neurologic: Motor/Sensory: no tremor and no asterixis Psychiatric: Orientation: alert and oriented x 3 Results & Data Vital Signs (Past 12 Hours) Vital Signs Temp Pulse Resp BP BP Pulse Ox O2 Del Method 03/25/23 07:32 36.6 C 70 22 117/64 97 High Flow Nasal Cannula 03/25/23 07:22 71 18 91 Oxymask, High Flow Nasal Cannula 03/25/23 07:19 71 18 91 Oxymask, High Flow Nasal Cannula 03/25/23 04:12 36.5 C 70 18 115/66 92 High Flow Nasal Cannula 03/25/23 02:39 70 22 91 High Flow Nasal Cannula 03/24/23 23:24 36.4 C L 71 18 103/59 L 92 High Flow Nasal Cannula 03/24/23 22:42 70 21 91 High Flow Nasal Cannula 03/24/23 22:35 High Flow Nasal Cannula O2 Flow Rate FiO2 03/25/23 07:32 03/25/23 07:22 40 100 03/25/23 07:19 40 100 03/25/23 04:12 40 03/25/23 02:39 40 100 03/24/23 23:24 40 03/24/23 22:42 40 100 03/24/23 22:35 40 1.0 Laboratory Results Laboratory Results - last 24 hr 03/24/23 03/24/23 03/24/23 08:31 08:31 08:31 WBC 13.37 H RBC 3.99 L Hgb 12.4 L Hct 37.7 L MCV 94.5 MCH 31.1 MCHC 32.9 RDW Std Deviation 53.6 H RDW Coeff of Anton 15.3 H Plt Count 224 MPV 10.0 Immature Gran % (Auto) 0.6 Neut % (Auto) 88.9 Lymph % (Auto) 3.7 [place] % (Auto) 5.1 Eos % (Auto) 1.3 Baso % (Auto) 0.4 Neut # (Auto) 11.90 H Lymph # (Auto) 0.49 L [place] # (Auto) 0.68 H Eos # (Auto) 0.17 Baso # (Auto) 0.05 Immature Gran # (Auto) 0.08 Sodium 136 Potassium 4.3 Chloride 100 Carbon Dioxide 25 Anion Gap 11 BUN 54 H Creatinine 3.43 H D Est Cr Clr Drug Dosing 19.2 Est GFR ( Amer) 18.0 Est GFR (Non-Af Amer) 15.5 BUN/Creatinine Ratio 15.7 Glucose 87 Calcium 8.5 L Phosphorus 4.3 Total Creatine Kinase 22 L 22 L Albumin 2.7 L SARS-CoV-2 (PCR) Influenza Type A (PCR) Influenza Type B (PCR) RSV (RT-PCR) 03/25/23 03/25/23 03/25/23 02:20 07:15 07:15 WBC 12.26 H RBC 4.13 L Hgb 12.9 L Hct 38.6 L MCV 93.5 MCH 31.2 MCHC 33.4 RDW Std Deviation 51.5 H RDW Coeff of Anton 15.0 H Plt Count 217 MPV 9.8 Immature Gran % (Auto) Neut % (Auto) Lymph % (Auto) [place] % (Auto) Eos % (Auto) Baso % (Auto) Neut # (Auto) Lymph # (Auto) [place] # (Auto) Eos # (Auto) Baso # (Auto) Immature Gran # (Auto) Sodium 133 L Potassium 4.4 Chloride 99 Carbon Dioxide 24 Anion Gap 10 BUN 64 H Creatinine 4.02 H D Est Cr Clr Drug Dosing 16.4 Est GFR ( Amer) 14.8 Est GFR (Non-Af Amer) 12.8 BUN/Creatinine Ratio 15.9 Glucose 96 Calcium 8.7 Phosphorus 4.2 Total Creatine Kinase Albumin 2.7 L SARS-CoV-2 (PCR) NEGATIVE Influenza Type A (PCR) Negative Influenza Type B (PCR) Negative RSV (RT-PCR) Negative Diagnostic Findings SINGLE VIEW CXR FINDINGS: An AP, portable, upright chest radiograph is compared to study dated 03/22/2023 and correlated with chest CT dated 03/24/2023. The examination is degraded by portable technique, apical lordotic positioning, and patient rotation. A 3-lead cardiac AICD is unchanged in position. The heart is enlarged noting atherosclerotic calcification of the thoracic aorta. There is pulmonary vascular congestion. Diffuse bilateral airspace opacities likely represent pulmonary edema. Small pleural effusions are observed. The lungs and pleural spaces are clear. No pneumothorax is seen. The skeletal structures are osteopeni c. The bony thorax is grossly intact. Arthritic change is seen in the shoulders. Cholecystectomy clips are noted in the right upper quadrant. IMPRESSION: 1. Cardiomegaly and AICD with evidence of congestive failure. 2. Diffuse bilateral airspace opacities are similar to previous and likely represent pulmonary edema. Correlate clinically for evidence of a superimposed infectious/inflammatory pneumonitis. Radiographic follow-up to resolution is recommended. 3. Small pleural effusions. PG Care Time/CCT Total # of Minutes Spent Total Time Spent with Patient: Total time spent is greater than 50% in coordination of care (as documented) at patient's floor/unit and/or counseling patient: Coding Level of Care Code 89416 SUB INP/OBS CARE 3/50MIN Diagnoses KENNEY (acute kidney injury) N17.9 CKD (chronic kidney disease) N18.9 Ischemic cardiomyopathy I25.5 Acute on chronic HFrEF (heart failure with reduced ejection fraction) I50.23 ICD (implantable cardioverter-defibrillator), biventricular, in situ Z95.810 Chronic indwelling Nguyễn catheter Z97.8
--- NOTE | 2023-03-25 11:43 | Hospitalist Progress Note ---
Date of Service March 25, 2023 Assessment & Plan (1) Hypoxia: Plan: With pulmonary edema and pulmonary vascular congestion with multifocal pneumonia seen on chest x-ray and chest CT. With severe emphysema underlying as well as acute on chronic diastolic CHF contributing The amount of supplemental oxygen required has significantly escalated over the several days--> he is now requiring Vapotherm HFNC 40L 100% FiO2 with 15L Oxymask overtop as he is a mouth breather. Was on CPAP for 24 hrs and does not want to put it back on ABG with hypoxia with PaO2 59, normal pH Repeat chest x-ray continues to significantly worsen and appears consistent with pulmonary edema or ARDS, multifocal pneumonia CT CHest again with severe emphysema, multifocal airspace opacities bilaterally, trace effusions, pulm HTN, and reactive lymphadenopathy Biofire negative on 03/19, procalcitonin negative COVID/Flu/RSV again negative on 03/24 BNP elevated and oxygenation has worsened despite diuretics WBC count was rising up to 15, but is now decreasing to 12 since changing antibiotics on 03/22 Remains afebrile Consideration to be made for amiodarone toxicity versus ARDS versus bacterial pneumonia/gram-negative pneumonia---> amiodarone stopped Most likely from Gram negative hospital acquired pneumonia -Consult pulmonology appreciated-now signed off -on 03/22, changed antibiotics to cefepime, doxycycline to cover for atypicals and MRSA despite negative MRSA swab x2 -Continue Duonebs scheduled tid -Continue home COPD inhalers -he does not like the CPAP, so will continue Vapotherm and wean off as tolerated -encouraged flutter valve, ICS -hold further diuresis due to KENNEY--> appreciate consult nephrology -Discontinued amiodarone as per discussion with cardiology (2) Acute metabolic encephalopathy: Plan: Present[facility] with progressive confusion, auditory and visual hallucinations. Delirium on admission likely secondary to Nguyễn catheter associated UTI. CT Head with no acute issue. Now encephalopathy completely resolved with treatment with IV antibiotics for UTI -completed treatment for UTI -continue treatment for pneumonia as above -Delirium prevention strategies with frequent orientation, maintenance of sleep/wake cycles when able -Maintain fall precautions -Melatonin qHS as needed insomnia (3) UTI (urinary tract infection): Plan: Nguyễn catheter associated UTI, presented w/ acute encephalopathy (now resolved) Urine culture from [facility] with E. coli, Proteus and Enterococcus. Obtained records from [facility]-E. coli pansensitive, Proteus resistant to ampicillin and cefazolin, as well as tetracycline, and Enterococcus resistant to tetracycline Patient with Nguyễn catheter in place since his fall in January, changed twice (most recently 03/16) Nguyễn remaining in place given limited mobility which is now being advanced per orthopedics, able to bear weight. Consider voiding trial if able to make improvement to prevent repeated infections, however with critically ill status now, would not pursue repeat UA no infection -Was on ceftriaxone (coverage for Ecoli/Proteus) + Dapto for coverage for Enteroccocus. MRSA nasal NEGATIVE, however changed to cefepime for pneumonia as above -Last day of therapy will be end of 03/23 for the UTI-stopped Dapto. But remains on Cefepime for PNA -Blood cultures -- NGTD -follow CBC, BMP (4) Chronic combined systolic and diastolic CHF (congestive heart failure): Plan: Acute on chronic combined systolic and diastolic CHF Most recent EF 30-35% with wall motion abnormalities, also with right heart failure, moderate-severe MR, and mild AI in 11/2022 With lower extremity edema here that he states is his chronic amount, wheezing and crackles on examination and chest x-ray consistent with pulmonary edema and PNA Has been receiving some intermittent IV lasix here and remains on 5LNC supplemental O2, still w/ pulm edema on CXR 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 -hold further lasix for now but can use it to encourage slightly negative fluid balance -continue Toprol XL -stopped lisinopril due to rising creatinine -Not on entresto/SGLT2/spironolactone due to renal failure per CHF notes -continue daily Weights, I&Os -follow BMP, magnesium and replace lytes as needed (5) CKD (chronic kidney disease): Plan: With KENNEY on CKD stage 4 CKD IV at baseline is Cr 2.75 Cr rising again with diuresis to 4.0 today, oliguric hold further lasix, stopped ACEi follow BMP Consult nephrology appreciated-pt does not desire dialysis Nguyễn catheter in place (6) Anabel-prosthetic fracture around prosthetic hip: Plan: Patient admitted to [facility] following a fall resulting in a anabel-prosthetic fracture of the left hip. Has been following with Orthopedic Surgery - last seen 03/10/23. During that time was complaining of pain with motion. He had X- rays obtained which showed the fracture in good alignment. He was progressed to weight bearing of the LLE as tolerated but has done very minimal standing PT evaluation for ambulation as tolerated LLE weight bearing with caution He is to followup with Ortho in another 6 weeks. (7) Ischemic cardiomyopathy: Plan: AICD in place - done in December by Dr. Mary. meds as above (8) Elevated troponin: Plan: Patient denies chest pain. No acute ischemic changes Serial troponin stable at 42/41 Likely myocardial demand ischemia in the setting of hypoxia and acute illness with underlying CAD (9) COPD (chronic obstructive pulmonary disease): Plan: With hypoxia as above, severe emphysematous changes on CT Chest -Continue Breo Ellipta daily -Duoneb scheduled tid -Suspect he does likely have underlying LEONIDES -cannot otlerate CPAP -continue supplemental O2 to keep POx> 89% (10) Paroxysmal atrial flutter: Plan: had cardioversion during this admission -reduced amiodarone to 200mg daily per Dr Mary because of thyroid dysfunction, but then discontinued altogether due to possible pulmonary toxicity -Continue Apixaban 2.5mg po BID -Continue metoprolol 25mg po qHS (11) Coronary artery disease: Plan: Remote history of RCA stent With myocardial demand ischemia as noted above -Continue apixaban, metoprolol. -continue ASA -he is statin intolerant (12) History of pulmonary embolism: Plan: -Continue Eliquis (13) Hypertension: Plan: Blood pressures are controlled Continue home metoprolol,But now stopped lisinopril 2.5mg as above, no hypotension, BP stable Lasix on hold for KENNEY (14) PAD (peripheral artery disease): Plan: With stent in the groin, history of carotid artery stenosis Continue aspirin and is intolerant of statins (15) Constipation: Plan: Was a major issue last admission but seems to be resolved Continue senna/docusate, MiraLAX as needed (16) Wound of lower extremity: Plan: Secondary to recent fall with sutures under left fifth toe and multiple small wounds on legs Consulted wound care while inpatient Sutures removed 03/19 (17) Abnormal TSH: Plan: TSH continues to trend upward since November, now up to 7.7 with normal free T4 Most likely secondary to amiodarone therapy Consulted cardiology to discuss weaning off amiodarone and potentially starting another antiarrhythmic versus rate control strategy-cardioverted and reduced amiodarone dose to 200mg daily -Started Synthroid 25mcg daily -follow TSH in 6 weeks Plan Disposition-continued stay PCU, prognosis guarded, may end up going to [facility] if worsens as discussed with patient and daughter Mishel who is a nurse DNR/DNI Admission and Anticipated Discharge Date Admission Date: March 17, 2023 Subjective Pt had to have 15L Oxymask overtop his maxed out Vapotherm HFNC overnight. Today he reports coughing up thick sputum that has some scant blood in it. No SOB or CP. Moved bowels x 2. Discussed care with daughter at length on phone. Tele with paced rhythm in the 70s Physical Exam Constitutional: WD/WN, vitals as above Neck: trachea midline, no thyromegaly Respiratory: normal respiratory effort Auscultation: + crackles (bibasilar) and + wheezes (bilat but improved) Cardiovascular: Rate/Rhythm: regular rate and regular rhythm Extremities: + edema (1+ pitting edema legs bilat) Gastrointestinal (Abdomen): normal bowel sounds, soft, nontender, no hepatosplenomegaly Neurologic: moves all extremities and awake; no focal motor deficits Psychiatric: A+Ox3, euthymic affect Results & Data Results & Data Vital Signs (Past 12 Hours) Vital Signs Temp Pulse Resp BP BP Pulse Ox O2 Del Method 03/25/23 07:32 36.6 C 70 22 117/64 97 High Flow Nasal Cannula 03/25/23 07:22 71 18 91 Oxymask, High Flow Nasal Cannula 03/25/23 07:19 71 18 91 Oxymask, High Flow Nasal Cannula 03/25/23 04:12 36.5 C 70 18 115/66 92 High Flow Nasal Cannula 03/25/23 02:39 70 22 91 High Flow Nasal Cannula O2 Flow Rate FiO2 03/25/23 07:32 03/25/23 07:22 40 100 03/25/23 07:19 40 100 03/25/23 04:12 40 03/25/23 02:39 40 100 Laboratory Results CBC, BMP, COVID/Flu/RSV, BCxs all reviewed Diagnostic Findings CXR 03/25 reviewed personally PG Care Time/CCT Total # of Minutes Spent Total Time Spent with Patient: Total time spent is greater than 50% in coordination of care (as documented) at patient's floor/unit and/or counseling patient: Coding Level of Care Code 42167 SUB INP/OBS CARE 3/50MIN Diagnoses Hypoxia R09.02 Acute metabolic encephalopathy G93.41 UTI (urinary tract infection) N39.0 Chronic combined systolic and diastolic CHF (congestive heart failure) I50.42 CKD (chronic kidney disease) N18.9 Anabel-prosthetic fracture around prosthetic hip M97.8XXD; Z96.649 Encounter type: subsequent encounter Ischemic cardiomyopathy I25.5 Elevated troponin R77.8 COPD (chronic obstructive pulmonary disease) J44.9 COPD type: unspecified COPD Paroxysmal atrial flutter I48.92 Coronary artery disease I25.10 Associated angina: without angina Coronary Disease-Associated Artery/Lesion type: [place] artery [place] vs. transplanted heart: [place] heart History of pulmonary embolism Z86.711 Hypertension I10 Hypertension type: essential hypertension PAD (peripheral artery disease) I73.9 Constipation K59.00 Wound of lower extremity S81.809A Abnormal TSH R79.89 (6) Anabel-prosthetic fracture around prosthetic hip Encounter type: subsequent encounter Qualified Code(s): M97.8XXD - Periprosthetic fracture around other internal prosthetic joint, subsequent encounter; Z96.649 - Presence of unspecified artificial hip joint (9) COPD (chronic obstructive pulmonary disease) COPD type: unspecified COPD Qualified Code(s): J44.9 - Chronic obstructive pulmonary disease, unspecified (11) Coronary artery disease Associated angina: without angina Coronary Disease-Associated Artery/Lesion type: [place] artery [place] vs. transplanted heart: [place] heart Qualified Code(s): I25.10 - Atherosclerotic heart disease of [place] coronary artery without angina pectoris (13) Hypertension Hypertension type: essential hypertension Qualified Code(s): I10 - Essential (primary) hypertension
--- NOTE | 2023-03-25 16:57 | Pulmonology Progress Note ---
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 Acute on Chronic Respiratory Failure -Combined Systolic/Diastolilc HF -COPD Exacerbation -Pneumonia? -Daptomycin/Cefepime 2. Acute HF -Systolic/Diastollic -diuresis -ECHO: EF=30-35% with Moderate to Severe MR -Cardiology following 3. COPD Exacerbation -multifactorial -Acute HF: systolic/Diastolic -pneumonia -requiring BiPAP/High Flow Oxygen -steroids -Severe COPD per Chest CT scan 4. Pneumonia -sputum culture -Cefepime 5. CKD-Stage IV -worsening due to poor cardiac function/poor CO -Nephrology evaluation -avoid nephrotoxic agents 6. Atrial Flutter -Cardiology folloiwng -S/P Cardioversion -Sinus Rythm currently -using apixiban At this time since there is no additional recommendations in regards to patient's pulmonary aspect of his management, the pulmonary team will sign off. We thank you for allowing us to participate in the care management of this patient. Admission and Anticipated Discharge Date Admission Date: March 17, 2023 Subjective Patient complaining of more posterior pharyngeal drainage and nasal drainage today, continues to use Vapotherm now with noise canceling headphones but has no other acute complaints overnight of this morning. He remains on an FiO2 of 100% on the Vapotherm. Review of Systems Review of Systems: All systems reviewed & are unremarkable except as noted in Subjective Physical Exam Constitutional: No acute respiratory or cardiac distress Eyes: PERRL, conjunctivae normal, anicteric sclerae ENMT: external ear and nose normal, oropharynx normal Neck: trachea midline, no thyromegaly Respiratory: Good inspiratory and expiratory effort with diminished breath sounds at the bases. Increased scattered wheezing. Cardiovascular: RRR, no murmur, no edema Gastrointestinal (Abdomen): normal bowel sounds, soft, nontender, no hepatosplenomegaly Musculoskeletal: Some bony deformities to hands knees and feet consistent with arthritis Skin: no rashes, warm and dry Neurologic: patellar DTR's 2+ bilat, sensation intact and PERRL, EOMI, accommodation nl, no face palsy, no dysarthria Psychiatric: A+Ox3, euthymic affect Results & Data Results & Data Vital Signs (Past 12 Hours) Vital Signs Temp Pulse Pulse Resp BP Pulse Ox O2 Del Method 03/25/23 16:08 36.4 C L 70 24 103/57 L 91 Oxymask, High Flow Nasal Cannula 03/25/23 14:26 70 03/25/23 13:37 72 17 91 High Flow Nasal Cannula 03/25/23 12:02 Oxymask, High Flow Nasal Cannula 03/25/23 11:47 36.5 C 70 23 112/64 98 Oxymask, High Flow Nasal Cannula 03/25/23 11:42 70 18 92 Nasal Cannula 03/25/23 07:32 36.6 C 70 22 117/64 97 High Flow Nasal Cannula 03/25/23 07:22 71 18 91 Oxymask, High Flow Nasal Cannula 03/25/23 07:19 71 18 91 Oxymask, High Flow Nasal Cannula O2 Flow Rate FiO2 03/25/23 16:08 03/25/23 14:26 03/25/23 13:37 40 100 03/25/23 12:02 50 100 03/25/23 11:47 03/25/23 11:42 40 100 03/25/23 07:32 03/25/23 07:22 40 100 03/25/23 07:19 40 100 Laboratory Results Laboratory Results WBC 12.26 K/ul (4.8-10.8) H 03/25/23 07:15 RBC 4.13 M/uL (4.70-6.10) L 03/25/23 07:15 Hgb 12.9 g/dl (14.0-18.0) L 03/25/23 07:15 Hct 38.6 % (42.0-52.0) L 03/25/23 07:15 MCV 93.5 fL (80.0-100.0) 03/25/23 07:15 MCH 31.2 pg (25.0-34.0) 03/25/23 07:15 MCHC 33.4 g/dL (32.0-36.0) 03/25/23 07:15 RDW Std Deviation 51.5 fL (36.4-46.3) H 03/25/23 07:15 RDW Coeff of Anton 15.0 % (11.5-14.5) H 03/25/23 07:15 Plt Count 217 K/uL (130-400) 03/25/23 07:15 MPV 9.8 fL (9.4-12.4) 03/25/23 07:15 Immature Gran % (Auto) 0.6 % 03/24/23 08:31 Neut % (Auto) 88.9 % 03/24/23 08:31 Lymph % (Auto) 3.7 % 03/24/23 08:31 [place] % (Auto) 5.1 % 03/24/23 08:31 Eos % (Auto) 1.3 % 03/24/23 08:31 Baso % (Auto) 0.4 % 03/24/23 08:31 Neut # (Auto) 11.90 K/uL (1.40-6.50) H 03/24/23 08:31 Lymph # (Auto) 0.49 K/uL (1.20-3.40) L 03/24/23 08:31 [place] # (Auto) 0.68 K/uL (0.11-0.59) H 03/24/23 08:31 Eos # (Auto) 0.17 K/uL (0.00-0.50) 03/24/23 08:31 Baso # (Auto) 0.05 K/uL (0.00-0.20) 03/24/23 08:31 Immature Gran # (Auto) 0.08 K/uL (0.01-0.20) 03/24/23 08:31 PT 12.9 Seconds (9.0-12.0) H 03/16/23 18:23 INR 1.2 (0.9-1.1) H 03/16/23 18:23 ABG pH 7.44 (7.35-7.45) 03/22/23 10:17 ABG pCO2 41 mmHg (35-46) 03/22/23 10:17 ABG pO2 59 mmHg (80-95) L 03/22/23 10:17 ABG HCO3 28 mmol/L (19-24) H 03/22/23 10:17 ABG O2 Saturation 90.7 % (90-95) 03/22/23 10:17 ABG Base Excess 3.3 mEq/L (-9-1.8) H 03/22/23 10:17 Lito Test Pos (Pos) 03/22/23 10:17 Oxygen Given 5L 03/22/23 10:17 Sodium 133 mmol/L (136-145) L 03/25/23 07:15 Potassium 4.4 mmol/L (3.5-5.1) 03/25/23 07:15 Chloride 99 mmol/L (98-107) 03/25/23 07:15 Carbon Dioxide 24 mmol/L (21-32) 03/25/23 07:15 Anion Gap 10 (3-11) 03/25/23 07:15 BUN 64 mg/dl (6-23) H 03/25/23 07:15 Creatinine 4.02 mg/dl (0.6-1.4) H D 03/25/23 07:15 Est Cr Clr Drug Dosing 16.4 ml/min 03/25/23 07:15 Est GFR ( Amer) 14.8 ml/min 03/25/23 07:15 Est GFR (Non-Af Amer) 12.8 ml/min 03/25/23 07:15 BUN/Creatinine Ratio 15.9 (10-20) 03/25/23 07:15 Glucose 96 mg/dl (70-99(Fasting)) 03/25/23 07:15 POC Glucose 119 mg/dl (70-99) H 03/23/23 20:22 Lactate 1.9 mmol/L (0.4-2.0) 03/16/23 18:23 Calcium 8.7 mg/dl (8.6-10.3) 03/25/23 07:15 Phosphorus 4.2 mg/dl (2.5-4.9) 03/25/23 07:15 Magnesium 2.1 mg/dl (1.7-2.4) 03/23/23 07:11 Total Bilirubin 0.9 mg/dl (0.2-1.0) 03/23/23 07:11 Direct Bilirubin 0.2 mg/dl (0-0.2) 03/19/23 09:45 AST 20 U/L (13-39) 03/23/23 07:11 ALT 9 U/L (7-52) 03/23/23 07:11 Alkaline Phosphatase 100 U/L (34-104) 03/23/23 07:11 Ammonia 11.0 umol/L (18-72) L 03/16/23 18:45 Total Creatine Kinase 22 U/L (30-223) L 03/24/23 08:31 Total Creatine Kinase 22 U/L (30-223) L 03/24/23 08:31 Troponin I High Sens 41.1 pg/ml (0-20) H 03/17/23 04:03 B-Natriuretic Peptide 994 pg/ml (0-100) H 03/22/23 06:28 Total Protein 6.3 gm/dl (6.0-8.3) 03/23/23 07:11 Albumin 2.7 gm/dl (3.4-5.0) L 03/25/23 07:15 Globulin 3.5 gm/dl (2.5-4.0) 03/23/23 07:11 Albumin/Globulin Ratio 0.8 (0.9-2) L 03/23/23 07:11 Procalcitonin 0.34 ng/ml (0-0.5) 03/23/23 07:11 TSH 7.762 uIu/ml (0.300-4.500) H 03/16/23 18:23 Free T4 1.27 ng/dl (0.61-1.60) 03/16/23 18:23 Urine Color Yellow 03/21/23 Unknown Urine Appearance Clear (Clear) 03/21/23 Unknown Urine pH 6.0 (4.5-7.5) 03/21/23 Unknown Ur Specific [place] 1.009 (1.000-1.030) 03/21/23 Unknown Urine Protein Negative (Negative) 03/21/23 Unknown Urine Glucose (UA) Negative (Negative) 03/21/23 Unknown Urine Ketones Negative (Negative) 03/21/23 Unknown Urine Blood Negative (Negative) 03/21/23 Unknown Urine Nitrite Negative (Negative) 03/21/23 Unknown Urine Bilirubin Negative (Negative) 03/21/23 Unknown Urine Urobilinogen Negative (Negative) 03/21/23 Unknown Ur Leukocyte Esterase Negative (Negative) 03/21/23 Unknown Urine WBC (Auto) 1-5 /hpf (0-5) 03/16/23 21:04 Urine RBC (Auto) >30 /hpf (0-4) H 03/16/23 21:04 U Hyaline Cast (Auto) 1-5 /lpf (0-5) 03/16/23 21:04 U Epithel Cells (Auto) >30 /lpf (0-5) H 03/16/23 21:04 Urine Bacteria (Auto) Negative (Negative) 03/16/23 21:04 Ur Renal Epithelial Cell Not Reportable 03/16/23 21:04 Nasal Screen MRSA (PCR) Negative (Negative) 03/23/23 06:15 Adenovirus (PCR) Not Detected (NotDetected) 03/19/23 17:10 B. pertussis DNA (PCR) Not Detected (NotDetected) 03/19/23 17:10 B.parapertussis DNA PCR Not Detected (NotDetected) 03/19/23 17:10 C. pneumoniae DNA (PCR) Not Detected (NotDetected) 03/19/23 17:10 Coronavirus OC43 (PCR) Not Detected (NotDetected) 03/19/23 17:10 Coronavirus HKU1 (PCR) Not Detected (NotDetected) 03/19/23 17:10 Coronavirus 229E (PCR) Not Detected (NotDetected) 03/19/23 17:10 SARS-CoV-2 (PCR) NEGATIVE (Negative) 03/25/23 02:20 Coronavirus NL63 (PCR) Not Detected (NotDetected) 03/19/23 17:10 Human Metapneumovir PCR Not Detected (NotDetected) 03/19/23 17:10 Influenza Type A (PCR) Negative (Neg) 03/25/23 02:20 Influenza Type B (PCR) Negative (Neg) 03/25/23 02:20 M. pneumoniae (PCR) Not Detected (NotDetected) 03/19/23 17:10 Parainfluenza 1 (PCR) Not Detected (NotDetected) 03/19/23 17:10 Parainfluenza 2 (PCR) Not Detected (NotDetected) 03/19/23 17:10 Parainfluenza 3 (PCR) Not Detected (NotDetected) 03/19/23 17:10 Parainfluenza 4 (PCR) Not Detected (NotDetected) 03/19/23 17:10 RSV (RT-PCR) Negative (Neg) 03/25/23 02:20 RSV (PCR) Not Detected (NotDetected) 03/19/23 17:10 Entero/Rhino (PCR) Not Detected (NotDetected) 03/19/23 17:[address] 03/16/23 18:26 Exam(s): CT HEAD Without Contrast EXAM: CT Head Without Intravenous Contrast CLINICAL HISTORY: Reason for exam: hallucinations. TECHNIQUE: Axial computed tomography images of the head/brain without intravenous contrast. CTDI is 37.78 mGy and DLP is 703.85 mGy-cm. Automated exposure control was utilized for the study. A dose lowering technique was utilized adhering to the principles of ALARA. COMPARISON: CT head on 11/19/2022 FINDINGS: Brain: No acute infarct or hemorrhage identified. No extra-axial fluid collection. No mass effect or midline shift. Scattered areas of hypoattenuation in the supratentorial white matter likely represent chronic small vessel ischemic changes. Ventricles and sulci: Prominence of the ventricles and sulci is likely secondary to cerebral volume loss. Bones: Normal. No bony lesion or acute fracture. Subcutaneous tissues: Normal. Sinuses: Normal. No air-fluid levels or mucosal thickening. Mastoid air cells: Small amount of fluid in the inferior mastoid air cells. Orbits: Bilateral lens implants. Other: Atherosclerotic calcifications in the intracranial vasculature. IMPRESSION: 1. No acute intracranial abnormality. If there is persistent concern for an acute process, consider further evaluation with MRI. 2. Chronic small vessel ischemic changes and cerebral volume loss. Electronically signed by: Francisco Guan M.D. 03/16/23 19:42 PM Hip/Pelvis X-Ray 03/16/23 18:26 XR hip LT 2V w pelvis CLINICAL HISTORY: weak, recent frx, hallucinations TECHNIQUE: 2 views of the left hip and single frontal view of the pelvis were obtained. Comparison: Comparison is made to hip radiograph 03/11/[address] left hip 02/09/2023 FINDINGS: Redemonstration of comminuted fracture about the intertrochanteric left femur. Total hip arthoplasty hardware is seen without perihardware lucency or hardware fracture. Vascular calcifications are seen. There is a right arterial stent. IMPRESSION: Redemonstration of periprosthetic fracture. No new acute fractures are seen. ACT 112: Negative or not required by law. Electronically signed by: Seth Romano M.D. 03/17/2023 7:[address] 03/24/23 07:17 CT chest diagnostic wo con CLINICAL HISTORY: hypoxia,pneumonia TECHNIQUE: Multidetector row helical CT of the chest was performed. Coronal and sagittal reformations were obtained. Automated dose lowering techniques and/or adjustment according to patient size were utilized for this exam. CT DOSE: 920.10 mGy.cm Comparison: Comparison is made to CT chest 04/03/2018 FINDINGS: Lungs and pleura: Multifocal airspace opacities are seen involving the bilateral lungs. Trace bilateral pleural effusions are seen. Incidental note is made of bilateral small calcified pleural plaques. Heart and pericardium: Cardiomegaly is seen with biatrial enlargement. Vessels: The pulmonary trunk is enlarged measuring 34 mm. Severe atherosclerosis is seen. Mediastinum and rosalee: Multiple prominent mediastinal lymph nodes measure up to 12 mm in Chest wall and lower neck: Unremarkable. Abdomen: Unremarkable. Bones: Degenerative changes in the thoracic spine. IMPRESSION: 1. Findings are compatible with multifocal pneumonia with reactive lymphadenopathy. 2. Pulmonary hypertension. 3. Trace bilateral pleural effusions. Pleural plaques are noted. ACT 112: Negative or not required by law. Electronically signed by: Seth Romano M.D. 03/24/2023 8:15 AM Chest X-Ray 03/25/23 00:57 SINGLE VIEW CHEST CLINICAL HISTORY: Hypoxia. FINDINGS: An AP, portable, upright chest radiograph is compared to study dated 03/22/2023 and correlated with chest CT dated 03/24/2023. The examination is degraded by portable technique, apical lordotic positioning, and patient rotation. A 3-lead cardiac AICD is unchanged in position. The heart is enlarged noting atherosclerotic calcification of the thoracic aorta. There is pulmonary vascular congestion. Diffuse bilateral airspace opacities likely represent pulmonary edema. Small pleural effusions are observed. The lungs and pleural spaces are clear. No pneumothorax is seen. The skeletal structures are osteopenic. The bony thorax is grossly intact. Arthritic change is seen in the shoulders. Cholecystectomy clips are noted in the right upper quadrant. IMPRESSION: 1. Cardiomegaly and AICD with evidence of congestive failure. 2. Diffuse bilateral airspace opacities are similar to previous and likely represent pulmonary edema. Correlate clinically for evidence of a superimposed infectious/inflammatory pneumonitis. Radiographic follow-up to resolution is recommended. 3. Small pleural effusions. ACT 112: Negative or not required by law. Electronically signed by: Dionte Altman M.D. 03/25/2023 7:42 AM Medications Administered Home Medications Medication Instructions Recorded Confirmed Last Taken acetaminophen 325 mg tablet 650 mg PO Q6 PRN Fever Or Pain 03/16/23 03/16/23 Unknown (Tylenol) amiodarone 200 mg tablet 200 mg PO BID 03/16/23 03/16/23 03/16/23 09:00 ampicillin 500 mg capsule 500 mg PO Q12 03/16/23 03/16/23 Unknown apixaban 2.5 mg tablet (Eliquis) 2.5 mg PO BID 03/16/23 03/16/23 03/16/23 09:00 cholecalciferol (vitamin D3) 50 50 mcg PO DAILY 03/16/23 03/16/23 03/16/23 09:00 mcg (2,000 unit) tablet (Vitamin D3) fluticasone furoate 100 1 inh inhalation DAILY 03/16/23 03/16/23 03/16/23 09:00 mcg-vilanterol 25 mcg/dose inhalation powder (Breo Ellipta) furosemide 20 mg tablet 20 mg PO DAILY 03/16/23 03/16/23 03/16/23 09:00 ipratropium 0.5 mg-albuterol 3 mg 3 ml inhalation Q6H PRN .SOB/COUGH 03/16/23 03/16/23 Unknown (2.5 mg base)/3 mL nebulization soln melatonin 5 mg tablet 5 mg PO HS 03/16/23 03/16/23 Unknown metoprolol succinate 25 mg 25 mg PO HS 03/16/23 03/16/23 Unknown tablet,extended release 24 hr nitroglycerin 0.4 mg sublingual 0.4 mg sublingual DIRECTED PRN 03/16/23 03/16/23 Unknown tablet (Nitrostat) .CHEST PAIN nystatin 100,000 unit/mL oral 5 ml PO Q6 .SORE MOUTH 03/16/23 03/16/23 03/16/23 13:00 suspension potassium chloride 10 mEq 10 meq PO DAILY 03/16/23 03/16/23 03/16/23 09:00 tablet,extended release sennosides 8.6 mg-docusate sodium 1 tab-cap PO DAILY 03/16/23 03/16/23 03/16/23 08:00 50 mg tablet (Senna-S) Active Medications Generic Name Dose Route Start Last Admin Trade Name Freq PRN Reason Stop Dose Admin Albuterol 3 ml 03/22/23 19:00 03/25/23 13:37 Albut/Ipratrop 3mg/0.5mg Neb 3 Ml Vial INH 04/21/23 18:59 3 ml TIDR MARIO Administration Protocol Apixaban 2.5 mg 03/17/23 09:00 03/25/23 09:12 Apixaban 2.5 Mg Tab PO 04/16/23 08:59 2.5 mg BID MARIO Administration Aspirin 81 mg 03/17/23 09:15 03/25/23 09:12 Aspirin 81 Mg Ectab PO 04/16/23 09:14 81 mg QAM MARIO Administration Fluticasone/Vilanterol 1 puffs 03/17/23 09:00 03/25/23 09:15 Fluticasone/Vilanterol 100/25mcg 14 Puffs/Inhaler INH 04/16/23 08:59 1 puffs DAILY MARIO Administration Furosemide 40 mg 03/17/23 09:00 03/24/23 09:28 Furosemide 40 Mg Tab PO 04/16/23 08:59 40 mg DAILY MARIO Administration Doxycycline Hyclate 100 mg/ 110 mls @ 50 mls/hr 03/23/23 00:00 03/25/23 14:39 Dextrose IV 03/30/23 00:00 Infused Q12H MARIO Infusion Cefepime HCl 1,000 mg/ Syringe 10 mls @ 5 mls/min 03/23/23 12:00 03/25/23 12:25 IV 03/29/23 23:59 5 mls/min Q12H MARIO Administration Levothyroxine Sodium 25 mcg 03/19/23 06:30 03/25/23 06:12 Levothyroxine Sodium 25 Mcg Tablet PO 04/18/23 06:29 25 mcg DAILYBB MARIO Administration Lisinopril 2.5 mg 03/19/23 14:45 03/23/23 08:01 Lisinopril 2.5 Mg Tab PO 04/18/23 14:44 2.5 mg QAM MARIO Administration Magnesium Oxide 400 mg 03/20/23 17:00 03/25/23 09:12 Magnesium Oxide 400 Mg Tab PO 04/19/23 16:59 400 mg QAM MARIO Administration Melatonin 6 mg 03/20/23 22:00 03/24/23 20:05 Melatonin 3 Mg Tab PO 04/19/23 21:59 6 mg HSZ MARIO Administration Metoprolol Succinate 25 mg 03/17/23 21:00 03/24/23 19:56 Metoprolol Succ 25mg Ext Rel Tab PO 04/16/23 20:59 Not Given HS MARIO Senna/Docusate Sodium 1 tab 03/17/23 09:00 03/25/23 09:17 Docusate Sodium/Senna 50/8.6mg Tab PO 04/16/23 08:59 1 tab DAILY MARIO Administration Vitamin D 2,000 units 03/17/23 09:00 03/25/23 09:13 Cholecalciferol 1,000 Units 25 Mcg Tab PO 04/16/23 08:59 2,000 units DAILY MARIO Administration PG Care Time/CCT Total # of Minutes Spent Total Time Spent with Patient: Total time spent is greater than 50% in coordination of care (as documented) at patient's floor/unit and/or counseling patient: Coding Level of Care Code 57030 SUB INP/OBS CARE 2/35MIN Diagnoses Hypothyroidism E03.9 ICD (implantable cardioverter-defibrillator), biventricular, in situ Z95.810 Wound of lower extremity S81.809A Acute UTI N39.0 Delirium R41.0 Anabel-prosthetic fracture around prosthetic hip M97.8XXD; Z96.649 Encounter type: subsequent encounter 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
[2023-03-25] MEDS: FLUTICASONE PROPIONATE NA SPR 16 GM BTL SCH (18:38)
[2023-03-25] MEDS: MELATONIN 3 MG TAB PO SCH (20:59)
[2023-03-25] MEDS: METOPROLOL SUCC 25MG EXT REL TAB PO SCH (20:59)
[2023-03-26] MEDS: LEVOTHYROXINE SODIUM 25 MCG TABLET PO SCH (05:25)
[2023-03-26 07:00] LABS: Hematocrit (blood only) 39.9 % (42.0-52.0); Hemoglobin 13.1 g/dl (14.0-18.0); Mean Corpuscular Hemoglobin 31.1 pg (25.0-34.0); Mean Corpuscular Hgb Conc 32.8 g/dL (32.0-36.0); Mean Corpuscular Volume 94.8 fL (80.0-100.0); Mean Platelet Volume 9.8 fL (9.4-12.4); Platelet Count 243 K/uL (130-400); RDW Standard Deviation 52.9 fL (36.4-46.3); Red Blood Count 4.21 M/uL (4.70-6.10); White Blood Count 10.53 K/ul (4.8-10.8)
[2023-03-26] MEDS: ALBUT/IPRATROP 3MG/0.5MG NEB 3 ML VIAL INH SCH ×2 (07:12→12:16)
[2023-03-26 07:22] LABS: Albumin Level 2.7 gm/dl (3.4-5.0); Calcium 8.7 mg/dl (8.6-10.3); Creatinine Clr Calc Pharmacy 15.1 ml/min; Est GFR (African American) 13.6 ml/min; Est GFR (Non-African American) 11.7 ml/min; Phosphorus 4.3 mg/dl (2.5-4.9); Potassium 4.5 mmol/L (3.5-5.1)
[2023-03-26] MEDS ORDERED: HYDROmorphone INJ 0.5 MG/0.5 ML SYR IV PRN ×2 (07:33→10:30)
[2023-03-26] MEDS ORDERED: ONDANSETRON 4 MG OD TAB SL PRN (07:33)
[2023-03-26] MEDS ORDERED: GLYCOPYRROLATE 0.2 MG/ML VIAL IV PRN (07:33)
[2023-03-26] MEDS ORDERED: ONDANSETRON INJ 2 MG/ML 2 ML VIAL IV PRN (07:33)
[2023-03-26] MEDS ORDERED: LORazepam 0.5 MG TAB PO PRN (07:33)
[2023-03-26] MEDS: ASPIRIN 81 MG ECTAB PO SCH (08:38)
[2023-03-26] MEDS: APIXABAN 2.5 MG TAB PO SCH (08:38)
[2023-03-26] MEDS: MAGNESIUM OXIDE 400 MG TAB PO SCH (08:39)
[2023-03-26] MEDS: FLUTICASONE/VILANTEROL 100/25MCG 14 PUFFS/INHALER INH SCH (08:39)
[2023-03-26] MEDS: CHOLECALCIFEROL 1,000 UNITS 25 MCG TAB PO SCH (08:39)
[2023-03-26] MEDS: FLUTICASONE PROPIONATE NA SPR 16 GM BTL SCH (08:39)
[2023-03-26] MEDS: DOCUSATE SODIUM/SENNA 50/8.6MG TAB PO SCH (08:39)
[2023-03-26] MEDS: LORazepam 2 MG/1 ML VIAL IV PRN ×2 (09:00→10:40)
--- NOTE | 2023-03-26 09:37 | Nephrology Progress Note ---
Date of Service March 26, 2023 Assessment & Plan (1) KENNEY (acute kidney injury): Plan: Remains relatively oliguric. KENNEY in the setting of CRS and intravascular volume depletion with superimposed ATN. Patient has transitioned to comfort measures only. I have nothing additional to add from a nephrology perspective. Supportive care was offered. Favian is resting comfortably. Nephrology will sign-off. (2) CKD (chronic kidney disease): (3) Ischemic cardiomyopathy: (4) Acute on chronic HFrEF (heart failure with reduced ejection fraction): (5) ICD (implantable cardioverter-defibrillator), biventricular, in situ: (6) Chronic indwelling Nguyễn catheter: Plan: Nguyễn to gravity. Document strict I/O's. Admission and Anticipated Discharge Date Admission Date: March 17, 2023 Subjective Favian was seen with his daughter at the bedside this morning. He was notably encephalopathic and unable to provide history. Nguyễn draining yellow urine. Favian is resting comfortably. Ativan provided before I entered the room. He has transitioned to comfort measures only. His daughter had no questions or concerns. Review of Systems Review of Systems: All systems reviewed & are unremarkable except as noted in HPI & below Physical Exam Constitutional: well developed, + ill appearing and + frail appearing; no acu te distress Respiratory: + tachypneic Psychiatric: Orientation: + not alert and + not oriented x 3 Results & Data Vital Signs (Past 12 Hours) Vital Signs Temp Pulse Pulse Resp BP BP Pulse Ox 03/26/23 09:00 03/26/23 08:07 79 24 80 L 03/26/23 07:33 36.3 C L 71 22 116/63 88 L 03/26/23 03:59 03/26/23 03:59 70 03/26/23 03:46 36.3 C L 71 22 107/58 L 90 03/26/23 02:23 71 22 92 03/25/23 23:42 36.4 C L 70 18 115/73 90 03/25/23 23:05 70 03/25/23 22:58 70 26 H 90 03/25/23 22:02 O2 Del Method O2 Flow Rate FiO2 03/26/23 09:00 High Flow Nasal Cannula 25 100 03/26/23 08:07 Oxymask 15 03/26/23 07:33 High Flow Nasal Cannula 40 03/26/23 03:59 Oxymask, High Flow Nasal Cannula 40 100 03/26/23 03:59 03/26/23 03:46 Oxymask, High Flow Nasal Cannula 40 03/26/23 02:23 Oxymask, High Flow Nasal Cannula 40 100 03/25/23 23:42 Nasal Cannula, Oxymask, High Flow Nasal Cannula 40 03/25/23 23:05 03/25/23 22:58 Oxymask, High Flow Nasal Cannula 40 100 03/25/23 22:02 Oxymask, High Flow Nasal Cannula 40 100 Laboratory Results Laboratory Results - last 24 hr 03/26/23 03/26/23 06:38 06:38 WBC 10.53 RBC 4.21 L Hgb 13.1 L Hct 39.9 L MCV 94.8 MCH 31.1 MCHC 32.8 RDW Std Deviation 52.9 H RDW Coeff of Anton 15.0 H Plt Count 243 MPV 9.8 Sodium 135 L Potassium 4.5 Chloride 101 Carbon Dioxide 22 Anion Gap 12 H BUN 69 H Creatinine 4.32 H D Est Cr Clr Drug Dosing 15.1 Est GFR ( Amer) 13.6 Est GFR (Non-Af Amer) 11.7 BUN/Creatinine Ratio 16.0 Glucose 90 Calcium 8.7 Phosphorus 4.3 Albumin 2.7 L PG Care Time/CCT Total # of Minutes Spent Total Time Spent with Patient: Total time spent is greater than 50% in coordination of care (as documented) at patient's floor/unit and/or counseling patient: Coding Level of Care Code 47889 SUB INP/OBS CARE 3/50MIN Diagnoses KENNEY (acute kidney injury) N17.9 CKD (chronic kidney disease) N18.9 Ischemic cardiomyopathy I25.5 Acute on chronic HFrEF (heart failure with reduced ejection fraction) I50.23 ICD (implantable cardioverter-defibrillator), biventricular, in situ Z95.810 Chronic indwelling Nguyễn catheter Z97.8
[2023-03-26] MEDS ORDERED: ATROPINE SULFATE 1% OP SOLN 5 ML BTL SL PRN (10:26)
[2023-03-26] MEDS ORDERED: LORazepam 2 MG/1 ML VIAL IV PRN (10:30)
[2023-03-26] MEDS: DOXYCYCLINE HYCLATE 100 MG in DEXTROSE 5% 100 ML IV SCH (12:03)
[2023-03-26] MEDS: CEFEPIME 1,000 MG in SYRINGE 0 ML IV SCH (12:03)
[2023-03-26] MEDS ORDERED: FUROSEMIDE 40 MG/4 ML VIAL IV ONE (12:48)
--- NOTE | 2023-03-26 12:55 | Death Pronouncement Note ---
Date of Service March 26, 2023 Pronouncement Note Admission Date March 17, 2023 Date and Time of Date of : 03/26/23 Time of : 11:58 Summary this is an unfortunate 82-year-old male who was admitted to the hospital with delirium and UTI on 03/16/2023. during the course of the hospital stay, the patient became hypoxic and was noted to be in ARDS/pulmonary vascular congestion and possible pneumonia. He was treated with IV antibiotics, Lasix. Cardiology and pulmonology were consulted. Despite all efforts, the patient continued with high oxygen requirements. He refused to keep his CPAP on and wished to be made comfort care This morning. I met with the patient and his daughter who agreed with comfort measures only. Comfort care orders were placed. I was informed by the nurse that the patient passed. I went to bedside. patient did not respond to vocal or tactile stimulus. No breath sounds or heart sounds were noted. Pupils fixed and dilated. Patient peacefully at 11:58 AM. I pronounced , met with the family and offered my condolences. Additional Data Confirmation of : no pulse, no respirations, no heart sounds and pupils fixed and dilated Pronouncement Performed By: Attending Physician Family: at bedside Attending physician: Ramiro Washington MD
--- NOTE | 2023-03-30 07:40 | Discharge Summary ---
Date of Service March 30, 2023 Admission HPI Per Admitting Provider Favian Multani is a pleasant 82yo male with multiple medical comorbidities including CAD, ischemic cardiomyopathy s/p dual chamber AICD, HTN, HLP, DM, COPD and CKD presenting from [facility] with several days of progressive confusion and delirium as well as a UTI. Patient was admitted to [facility] from 02/09/23 - 02/15/23 after sustaining a fall resulting in extensive avulsion wounds of bilateral arms as well as a closed periprosthetic fracture of the left hip. Patient was seen by Dr. Ma from Orthopedic Surgery during his admission. Fracture is non-operative. Patient had a Nguyễn catheter placed and was instructed to continue non-weightbearing status to the left leg for 6 weeks. He had extensive wound care with marked improvement in his avulsion wounds. Patient was discharged to [facility]. Daughter reports that early Wednesday AM, 03/12/23 the patient started getting confused. He was calling the police from his room at [facility] and began having auditory and visual hallucinations. Patient sustained a fall on 03/13/23 while trying to get out of bed. There was no report of head trauma or loss of consciousness. He did sustain a laceration of the plantar surface of his left 5th toe. He was seen in [place] [facility] and had sutures placed in the toe laceration. He had a urinalysis performed which was suggestive of UTI. He received a dose of IV Ceftriaxone in the ER and was sent home with Keflex. Preliminary urine cultures from today reveal >100,000 CFU of E. coli, Proteus and Enterococcus. Sensitivities pending. Patient was to be transitioned to Ampicillin but did not yet receive this medication. He presents to the ER with his daughter today. She reports progressive confusion since 03/12/23. Patient continues to have visual and auditory hallucinations. He reports "hearing music for 14 hours straight" in his head. He also has been having visions of his brother and is seeing birds in the room as well. Daughter states that prior to patient falling and breaking his hip he was full functional and independent. Patient with no complaints. He has a chronic cough and intermittent nausea. He has had some loose stools reported at [facility]. Otherwise denies fever, chills, chest pain, palpitations, vomiting, abdominal pain. No additional complaints. Patient remains non-weight bearing to the LLE. He has been using a wheelchair and a lift. Daughter voices concern for patient's skin -he is beginning to have some redness to his right heel and sacral area. ER Course: Abel 4.5gm Admission Exam Per Admitting Provider General: patient resting comfortably, NAD, non-toxic in appearance, AA&O to self and date, able to state that he is coming from [facility] Skin: warm, dry, avulsion wounds with dressing in place to bilateral forearms, scattered abrasions and bruising on bilateral forearms and legs with no active bleeding or evidence of secondary infection, redness to sacral area and right heel, sutures in place left 5th toe plantar surface HEENT: NC/AT, PERRL, EOMI, anicteric sclera, conjunctiva without injection, external ear normal to inspection and nontender, nares patent, moist mucus membranes, dentition intact, no oropharyngeal lesions, neck supple, trachea midline, no LAD, no thyromegaly, no JVD Heart: +S1/S2, regular, no m/r/g, AICD in place Lungs: equal air entry bilaterally, crackles in right lower lung, no wheezing Abd: +BS, soft, NT/ND, no masses/organomegaly/ascites Ext: warm, 2+ pulses in UE/LE bilaterally, no clubbing/cyanosis or edema Neuro: nonfocal, patient AA&O x 2, confused, speaking about hearing music and seeing birds, speech intact, no facial droop, moving all extremities on command with equal strength 5/5 Principal Diagnosis Acute hypoxic respiratory failure due to pulmonary edema Acute kidney injury on CKD stage IV Discharge Exam not applicable. Patient . Discharge Data Allergies Allergy/AdvReac Type Severity Reaction Status Date / Time ciprofloxacin Allergy Intermediate Rash Verified 03/16/23 20:12 warfarin Allergy Intermediate hives, rash Verified 03/16/23 20:12 niacin AdvReac Severe LEG Verified 03/16/23 20:12 [From Niaspan WEAKNESS Extended-Release] Igiuabz-EPI-WbN Reductase AdvReac Severe muscle Verified 03/16/23 20:12 Inhibitor weakness,pain, [Ypamtmw-Yfg-Rxo Reductase cramps Inhibitor] umeclidinium AdvReac Unknown "NOT Verified 03/16/23 20:12 [From Anoro Ellipta] ALLERGIC,DOES NOTHING FOR ME" vilanterol AdvReac Unknown "NOT Verified 03/16/23 20:12 [From Anoro Ellipta] ALLERGIC, DOES NOTHING FOR ME" Consultations 03/16/23 19:58 ED Decision to Admit Stat 03/17/23 09:28 Consult Cardiology Routine 03/23/23 08:44 Consult Pulmonology Routine 03/23/23 11:37 Consult Nephrology Routine 03/26/23 10:26 Consult Palliative Care Routine Procedures Performed Operation Date: 03/19/23 07:15 Actual Procedures p Cardioversion - Yuri Mary MD Ordered Studies 03/16/23 18:26 CT head/brain wo con Stat 03/24/23 07:17 CT chest diagnostic wo con Urgent Hospital Course (1) Hypoxia: With pulmonary edema and pulmonary vascular congestion with multifocal pneumonia seen on chest x-ray and chest CT. With severe emphysema underlying as well as acute on chronic diastolic CHF contributing The amount of supplemental oxygen required has significantly escalated over the several days the patient declined any further BiPAP or CPAP. He requested to be made comfort care only. His wishes were respected. I met with the daughter at the bedside and switched him to comfort measures only. (2) Acute metabolic encephalopathy: [facility] with [facility] confusion, auditory and visual hallucinations. Delirium on admission likely secondary to Nguyễn catheter associated UTI. Now encephalopathy completely resolved with treatment with IV antibiotics for UTI -completed treatment for UTI (3) UTI (urinary tract infection): Nguyễn catheter associated UTI, presented w/ acute encephalopathy (now resolved) (4) Chronic combined systolic and diastolic CHF (congestive heart failure): Acute on chronic combined systolic and diastolic CHF Most recent EF 30-35% with wall motion abnormalities, also with right heart failure, moderate-severe MR, and mild AI in 11/2022 With lower extremity edema here that he states is his chronic amount, wheezing and crackles on examination and chest x-ray consistent with pulmonary edema and PNA Has been receiving some intermittent IV lasix here and remains on 5LNC supplemental O2, still w/ pulm edema on CXR and on exam 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 Patient did not desire dialysis (6) Anabel-prosthetic fracture around prosthetic hip: Patient admitted to [facility] following a fall resulting in a anabel-prosthetic fracture of the left hip. Has been following with Orthopedic Surgery - last seen 03/10/23. During that time was complaining of pain with motion. He had X- rays obtained which showed the fracture in good alignment. He was progressed to weight bearing of the LLE as tolerated but has done very minimal standing (7) Ischemic cardiomyopathy: AICD in place - done in December by Dr. Mary. meds as above (8) Elevated troponin: Patient denies chest pain. No acute ischemic changes Serial troponin stable at 42/41 Likely myocardial demand ischemia in the setting of hypoxia and acute illness with underlying CAD (9) COPD (chronic obstructive pulmonary disease): With hypoxia as above, severe emphysematous changes on CT Chest (10) Paroxysmal atrial flutter: had cardioversion during this admission switched to comfort care meds (11) Coronary artery disease: Remote history of RCA stent With myocardial demand ischemia as noted above switched to comfort care meds (12) History of pulmonary embolism: discontinue Eliquis, switched to comfort care meds (13) Hypertension: switched to comfort care meds (14) PAD (peripheral artery disease): With stent in the groin, history of carotid artery stenosis switched to comfort care meds (15) Constipation: switched to comfort care meds (16) Wound of lower extremity: Secondary to recent fall with sutures under left fifth toe and multiple small wounds on legs (17) Abnormal TSH: TSH continues to trend upward since November, now up to 7.7 with normal free T4 switch to comfort care meds Plan plan is to switch to comfort measures only. DNR/DNI Total Time Total Time Spent Total Time Spent (In Minutes): 35 Discharge Plan Discharge Items Patient Disposition: Discharge Diagnosis: multifocal pneumonia, pulmonary vascular congestion with pulmonary edema, severe emphysema, acute metabolic encephalopathy, UTI Other Date/Time: 03/26/23 11:58 Coding Level of Care Code 64390 INP/OBS DISCH >30 MIN Diagnoses Hypoxia R09.02 Acute metabolic encephalopathy G93.41 UTI (urinary tract infection) N39.0 Chronic combined systolic and diastolic CHF (congestive heart failure) I50.42 CKD (chronic kidney disease) N18.9 Anabel-prosthetic fracture around prosthetic hip M97.8XXD; Z96.649 Encounter type: subsequent encounter Ischemic cardiomyopathy I25.5 Elevated troponin R77.8 COPD (chronic obstructive pulmonary disease) J44.9 COPD type: unspecified COPD Paroxysmal atrial flutter I48.92 Coronary artery disease I25.10 Coronary Disease-Associated Artery/Lesion type: [place] artery [place] vs. transplanted heart: [place] heart Associated angina: without angina History of pulmonary embolism Z86.711 Hypertension I10 Hypertension type: essential hypertension PAD (peripheral artery disease) I73.9 Constipation K59.00 Wound of lower extremity S81.809A Abnormal TSH R79.89
== END 2023-03-26 13:20 | disposition expired | DRG 698 ==
LOC: EDINP 18:06 → ED 18:06 → SUATTDRO 20:33 → EDINP 03-17 20:18 → 3W 03-17 20:33 → 2S 03-23 10:31